=== PATIENT | male | born 1965 | race African-American/Black ===

== ENCOUNTER → 2016-08-16 | Outpatient (CLI) | payer BC ==
[2014-04-29 10:17] VITALS: BP 174/96
[~2016-08-16] MED LIST: GABA-586 PO; GEMF600T3 PO; GLIP10TA13 PO; GLIP5TAB10 PO; HYDR-2679 PO; INSU100I13 SQ; INSU100V5 IJ; LIPA1CAP13 PO; LOSA25TA4 PO; METF10002 PO; METH-38 PO; OMEP40CA2 PO; TAMS0.4C97 PO
== END | disposition home or self-care (01) ==
LOC: LAB 09:44
PROVIDERS: ATTEND Radiology Radiation Oncology
DX: C61 Malignant neoplasm of prostate (principal)
CPT/HCPCS: 36415; G0103

== ENCOUNTER → 2016-11-21 | Outpatient (CLI) | payer BC ==
[2014-04-29 10:17] VITALS: BP 174/96
[~2016-11-21] MED LIST changes: +METF-620 PO; -METF10002 PO
== END | disposition home or self-care (01) ==
LOC: LAB 08:29
PROVIDERS: ATTEND Radiology Radiation Oncology
DX: Z12.5 Encounter for screening for malignant neoplasm of prostate (principal); C61 Malignant neoplasm of prostate
CPT/HCPCS: 36415; G0103

== ENCOUNTER → 2017-08-26 | Outpatient (CLI) | payer BC ==
[2017-08-26 13:19] LABS: ADD MAN DIFF? NO
[2017-08-26 13:22] LABS: BASO # 0.2 x10^3/uL (0.0-0.2); BASO % 2 % (0-3); EOS # 0.2 x10^3/uL (0.0-0.7); EOS % 1 % (0-3); HEMATOCRIT 32.2 % (39.0-53.0); HEMOGLOBIN 10.5 g/dL (13.0-17.5); LYMPH % 42 % (24-48); MEAN CORPUSCULAR HEMOGLOBIN 26 pg (25-35); MEAN CORPUSCULAR HGB CONC 33 g/dL (31-37); MEAN CORPUSCULAR VOLUME 80 fL (79-100); MONO # 0.8 x10^3/uL (0.0-1.1); MONO % 6 % (0-9); NEUT % 49 % (31-73); PLATELET COUNT 420 x10^3/uL (140-400); RED CELL DISTRIBUTION WIDTH 17.6 % (11.5-14.5); WHITE BLOOD COUNT 14.3 x10^3/uL (4.0-11.0)
[2017-08-26 13:57] LABS: POC GLUCOSE 89 mg/dL (70-99)
[2017-08-26 14:07] LABS: ALBUMIN 3.1 g/dL (3.4-5.0); ALBUMIN/GLOBULIN RATIO 0.8 (1.0-1.7); ALK PHOS 122 U/L (46-116); ALT (SGPT) 20 U/L (16-63); ANION GAP 14 (6-14); AST (SGOT) 18 U/L (15-37); BLOOD UREA NITROGEN 13 mg/dL (8-26); BUN/CREATININE RATIO 9 (6-20); CALCIUM 8.8 mg/dL (8.5-10.1); CARBON DIOXIDE 19 mmol/L (21-32); CHLORIDE 101 mmol/L (98-107); CREATININE 1.5 mg/dL (0.7-1.3); GFR 59.7; GLUCOSE 89 mg/dL (70-99); POTASSIUM 4.1 mmol/L (3.5-5.1); SODIUM 134 mmol/L (136-145); TOTAL BILIRUBIN 0.2 mg/dL (0.2-1.0); TOTAL PROTEIN 6.8 g/dL (6.4-8.2)
[2017-08-26 20:10] LABS: HEMOGLOBIN A1C 6.9 % (4.8-5.6)
[2017-08-26 22:13] LABS: MRSA BY PCR Negative (Negative)
== END | disposition home or self-care (01) ==
LOC: SURGPAT 12:36
DX: Z01.818 Encounter for other preprocedural examination (principal); M51.16 Intervertebral disc disorders with radiculopathy, lumbar region; R94.31 Abnormal electrocardiogram [ECG] [EKG]
CPT/HCPCS: 36415; 80053; 82962; 83036; 85025; 87641; 93005

== ENCOUNTER 2017-08-30 06:48 | Day surgery (SDC) | payer BC ==
[~2017-08-30 06:48] MED LIST changes: -GABA-586 PO; -GEMF600T3 PO; -GLIP10TA13 PO; -GLIP5TAB10 PO; -HYDR-2679 PO; -INSU100I13 SQ; -INSU100V5 IJ; +LIDOCAINE 2% PF Vial for OR 5 ML VIAL.; -LIPA1CAP13 PO; -LOSA25TA4 PO; -METF-620 PO; -METH-38 PO; -OMEP40CA2 PO; +PROPOFOL 20 ML IV; +ROCURONIUM 50 MG/5 ML VIAL.; -TAMS0.4C97 PO
[2017-08-30] MEDS ORDERED: ONDANSETRON PF 4 MG/2 ML VIAL. IV ×2 (07:00)
[2017-08-30] MEDS ORDERED: PROCHLORPERAZINE 10 MG/2 ML VIAL. IV ×2 (07:00)
[2017-08-30] MEDS ORDERED: fentaNYL PF VIAL 100 MCG/2 ML VIAL IV ×2 (07:00)
[2017-08-30] MEDS ORDERED: LIDOCAINE 1% PF 2 ML VIAL. ID ×2 (07:00)
[2017-08-30] MEDS ORDERED: HYDROmorphone 2 MG/ML VIAL IV ×2 (07:00)
[2017-08-30] MEDS ORDERED: ceFAZolin 2GM PREMIX 2 GM/50 ML BAG IV ×2 (07:00)
[2017-08-30] MEDS: IV RINGERS,LACTATED 1000ML 1,000 ML IV ×2 (07:29)
[2017-08-30 07:32] LABS: POC GLUCOSE 79 mg/dL (70-99)
[2017-08-30] MEDS ORDERED: ePHEDrine PF IN SALINE 50 MG/5 ML DISP.SYRIN IV (08:15)
[2017-08-30] MEDS ORDERED: fentaNYL PF VIAL 100 MCG/2 ML VIAL ×2 (08:16)
[2017-08-30] MEDS ORDERED: MIDAZOLAM HCL/PF 2 MG/2 ML VIAL. ×2 (08:17)
[2017-08-30] MEDS ORDERED: PROPOFOL 50 ML IV ×4 (08:18→10:33)
[2017-08-30] MEDS ORDERED: REMIFENTANIL 2 MG VIAL. IV ×2 (08:18)
[2017-08-30] MEDS ORDERED: NEOSTIGMINE METHYLSULFATE 5 MG/5 ML SYRINGE. ×2 (09:03)
[2017-08-30] MEDS ORDERED: GLYCOPYRROLATE 1 MG/5 ML VIAL. ×2 (09:03)
[2017-08-30] MEDS: BACITRACIN 50,000 UNIT in IV NORMAL SALINE 1000ML BAG 1,000 ML IRR (09:33)
[2017-08-30] MEDS: GELATIN SPONGE SIZE 100. ×2 (09:33)
[2017-08-30] MEDS: THROMBIN TOPICAL 20,000 UNIT SPRAY.SYRN KIT TP ×2 (09:33)
[2017-08-30] MEDS: KETOROLAC 60 MG/2 ML INJ FOR OR. ×2 (09:33)
[2017-08-30] MEDS: BUPIVAC MPF-EPI 0.5%-1:200000 30 ML VIAL. INJ ×2 (09:33)
[2017-08-30] MEDS: fentaNYL PF VIAL 100 MCG/2 ML VIAL IV ×4 (11:30→11:53)
[2017-08-30] MEDS: MORPHINE SULFATE 2 MG/ML DISP.SYRIN. IV ×4 (11:30→11:53)
[2017-08-30 11:38] LABS: POC GLUCOSE 54 mg/dL (70-99)
[2017-08-30] MEDS: HYDROcodone/APAP 7.5/325MG 1 TAB TABLET PO ×2 (12:17)
[2017-08-30] MEDS: hydrALAZINE 20 MG/ML VIAL. IVP ×4 (12:28→13:16)
[2017-08-30 13:05] LABS: POC GLUCOSE 96 mg/dL (70-99)
== END 2017-08-30 13:41 | disposition home or self-care (01) ==
LOC: SURG 06:48
DX: M51.16 Intervertebral disc disorders with radiculopathy, lumbar region (principal); I25.10 Atherosclerotic heart disease of native coronary artery without angina pectoris; E78.00 Pure hypercholesterolemia, unspecified; I10 Essential (primary) hypertension; K21.9 Gastro-esophageal reflux disease without esophagitis; F17.200 Nicotine dependence, unspecified, uncomplicated; E11.9 Type 2 diabetes mellitus without complications; Z72.0 Tobacco use; Z79.899 Other long term (current) drug therapy; Z86.69 Personal history of other diseases of the nervous system and sense organs; Z90.49 Acquired absence of other specified parts of digestive tract; Z87.39 Personal history of other diseases of the musculoskeletal system and connective tissue
CPT/HCPCS: 63030; 76000; 82962; 88304; 88311; 97162-GP; 97530-GP; G8978-CJ-GP; G8979-CJ-GP; G8980-CJ-GP; J0360; J0690; J1885; J2250; J2270; J2704; J2710; J3010; J3490; J7030; J7120

== ENCOUNTER → 2017-10-11 | Outpatient (CLI) | payer BC | END | disposition home or self-care (01) | LOC: CT 10:07 | DX: R91.1 Solitary pulmonary nodule (principal); I25.10 Atherosclerotic heart disease of native coronary artery without angina pectoris; K86.1 Other chronic pancreatitis; Z98.890 Other specified postprocedural states | CPT/HCPCS: 71250 ==

== ENCOUNTER → 2018-03-13 | Outpatient (CLI) | payer BC ==
[2017-08-30 13:35] VITALS: BP 213/98
[~2018-03-13] MED LIST changes: +ASPI-482 PO; +ATORVASTATIN CA80 MG PO; +CYAN10005 PO; +DOCU-109 PO; +GABA-586 PO; +GEMF600T3 PO; +GLIP10TA13 PO; +GLIP5TAB10 PO; +HYDR-2679 PO; +HYDR-2762 PO; +INSU100I13 SQ; +INSU100V5 IJ; -LIDOCAINE 2% PF Vial for OR 5 ML VIAL.; +LIPA1CAP13 PO; +LOSA25TA4 PO; +METF10003 PO; +METH-38 PO; +METO-239 PO; +MONT10TA9 PO; +OMEP40CA2 PO; -PROPOFOL 20 ML IV; -ROCURONIUM 50 MG/5 ML VIAL.; +TAMS0.4C97 PO; +TRAZ-86 PO
--- NOTE | 2018-03-13 16:14 | KCIC ---
EXAM: Cervical spine, 3 views. HISTORY: Radiculopathy. COMPARISON: None. FINDINGS: 3 views of cervical spine are obtained. There is slight reversal of cervical lordosis. There is degenerative endplate remodeling primarily at C3-C4 and C4-C5. There is no listhesis. There is no fracture. There is calcified atherosclerotic plaque within the carotid bifurcations. IMPRESSION: Mild degenerative change of the proximal and mid cervical levels. No acute osseous finding. Electronically signed by: Kala Sheriff MD (03/13/2018 4:10 PM) [place] [id number]
== END | disposition home or self-care (01) ==
LOC: KCIC 15:25
PROVIDERS: ATTEND Internal Medicine
DX: M47.892 Other spondylosis, cervical region (principal); I70.0 Atherosclerosis of aorta; I10 Essential (primary) hypertension; E11.9 Type 2 diabetes mellitus without complications; E78.00 Pure hypercholesterolemia, unspecified; I25.10 Atherosclerotic heart disease of native coronary artery without angina pectoris; K21.9 Gastro-esophageal reflux disease without esophagitis; Z96.652 Presence of left artificial knee joint; Z87.39 Personal history of other diseases of the musculoskeletal system and connective tissue; Z86.69 Personal history of other diseases of the nervous system and sense organs; Z90.49 Acquired absence of other specified parts of digestive tract
CPT/HCPCS: 72040

== ENCOUNTER → 2018-05-24 | Outpatient (CLI) | payer BC ==
[2017-08-30 13:35] VITALS: BP 213/98
[~2018-05-24] MED LIST changes: -GEMF600T3 PO; +GEMF600T4 PO; -LOSA25TA4 PO; +LOSA25TA5 PO; -METF10003 PO; +METF10007 PO
[2018-05-24 14:49] LABS: CALCIUM 8.1 mg/dL (8.5-10.1); CREATININE 1.7 mg/dL (0.7-1.3); GFR 51.7; POTASSIUM 4.9 mmol/L (3.5-5.1)
== END | disposition home or self-care (01) ==
LOC: LAB 14:04
PROVIDERS: ATTEND Internal Medicine
DX: E87.5 Hyperkalemia (principal)
CPT/HCPCS: 36415; 80048

== ENCOUNTER → 2018-09-02 | Day surgery (SDC) | payer BC ==
[~2018-09-02] MED LIST changes: -GABA-586 PO; +GABA300C18 PO; -GEMF600T4 PO; +GEMF600T8 PO; -HYDR-2762 PO; +HYDR-2765 PO; +IV RINGERS,LACTATED 1000ML 1,000 ML IV SCH; +LIDOCAINE 1% PF 2 ML VIAL. ID PRN; -LOSA25TA5 PO; +LOSA25TA54 PO; +ONDANSETRON PF 4 MG/2 ML VIAL. IV PRN; +PHENYLEPHRINE 10 MG/ML VIAL. ONE; +PROCHLORPERAZINE 10 MG/2 ML VIAL. IV PRN; +PROPOFOL 20 ML IV ONE; +PROPOFOL 80 ML IV ONE; +fentaNYL PF VIAL 100 MCG/2 ML VIAL IV PRN
[2018-09-02 09:59] VITALS: BP 179/90
--- NOTE | 2018-09-03 15:07 | PATHOLOGY ---
[facility] Accession Number: [id number] . 01 Material submitted: . PART A: SMALL BOWEL BIOPSY PART B: RANDOM BIOPSY FOR H. PYLORI PART C: CARDIA BIOPSY PART D: ASCENDING COLON POLYP PART E: HEPATIC FLEXURE POLYP PART F: TRANSVERSE POLYP PART G: SIGMOID POLYP PART H: DISTAL SIGMOID POLYP PART I: RECTAL NODULAR BIOPSY . 01 Clinical history: . Anemia . 02 Diagnosis: A. Small bowel biopsy: - No significant pathologic abnormalities. . B. Random gastric biopsy: - Chronic gastritis, mild. . C. Gastric cardia biopsy: - Congestion and slight chronic inflammation. . D. Colon biopsy, ascending colon polyp: - Tubular adenoma. . E. Colon biopsy, hepatic flexure polyp: - Tubular adenoma. . F. Colon biopsies, transverse colon polyp: - Tubular adenomas. . G. Colon biopsy, sigmoid colon polyp: - Diminutive tubular adenoma. . H. Colon biopsy, distal sigmoid polyp: - Tubular adenoma. . I. Colorectal biopsies, rectum: - Mild chronic proctitis with focal superficial epithelial hyperplastic changes. (JPM:bryn; 09/03/2018) QMS/09/03/2018 . 02 Comment: Sections of the small bowel biopsy reveal segments of duodenal and small intestine mucosa. Where best oriented, the mucosal villi show no sprue-like changes or significant inflammatory changes. . Sections of the random gastric biopsy reveal segments of gastric body and antral mucosa showing mild chronic inflammation. A properly controlled immunoperoxidase stain for Helicobacter is negative for Helicobacter organisms. . Sections of the gastric cardia biopsy show congestion and slight chronic inflammation. A properly controlled immunoperoxidase stain for Helicobacter is negative for Helicobacter organisms. . Sections of the ascending colon, hepatic flexure, transverse colon, sigmoid colon, and distal sigmoid colon bipsies appear similar and reveal tubular adenomas showing no high-grade dysplasia or evidence of malignancy. . Sections of the rectal biopsy reveal segments of rectal mucosa showing mild chronic inflammation with focal architectural distortion of rectal glands and with focal superficial epithelial hyperplastic changes. There are no adenomatous changes or evidence of malignancy. (JPM:bryn; 09/03/2018) . Special stains performed: Immunoperoxidase stains for Helicobacter on B1 and C1. . 02 Electronically signed: . Aguilar Lo MD, Pathologist NPI- [id number] . 01 Gross description: . A. Received in formalin labeled "Magadleno Murillo, small bowel BX," are 4 segments of collazo soft tissue measuring 1.2 x 0.9 x 0.2 cm in aggregate dimensions and ranging from 0.3 to 0.6 cm in maximum dimension. The specimen is submitted entirely in cassette A1. . B. Received in formalin labeled "Magdaleno Murillo, random BX for H. pylori," and additionally verified as "gastric," are 4 segments of collazo soft tissue measuring 1.3 x 0.9 x 0.2 cm in aggregate dimensions and ranging from 0.3 to 0.7 cm in maximum dimension. The specimen is submitted entirely in B1. . C. Received in formalin labeled "Magdaleno Murillo, cardia BX," is a single segment of collazo soft tissue measuring 0.4 cm in maximum dimension. The specimen is entirely submitted in cassette C1. . D. Received in formalin labeled "Magdaleno Murillo, ascending colon polyp," is a single segment of collazo soft tissue measuring 0.5 cm in maximum dimension. The specimen is entirely submitted in cassette D1. . E. Received in formalin labeled "Magdaleno Murillo, hepatic flexure polyp," is a single segment of collazo soft tissue measuring 0.5 cm in maximum dimension. The specimen is entirely submitted in cassette E1. . F. Received in formalin labeled "Murillo, Magdaleno, transverse polyp," are 5 segments of collazo soft tissue measuring 1.5 x 0.9 x 0.3 cm in aggregate dimensions and ranging from 0.3 to 0.5 cm in maximum dimension. The specimen is submitted entirely in F1. . G. Received in formalin labeled "Murillo, Magdaleno, sigmoid polyp," are 3 segments of collazo soft tissue measuring 0.9 x 0.6 x 0.3 cm in aggregate dimensions and ranging from 0.3 to 0.5 cm in maximum dimension. The specimen is submitted entirely in G1. . H. Received in formalin labeled "Magdaleno Murillo, distal sigmoid polyp," are 2 segments of collazo soft tissue measuring 0.9 x 0.2 x 0.2 cm in aggregate dimensions and ranging from 0.4 to 0.5 cm in maximum dimension. The specimen is submitted entirely in H1. . I. Received in formalin labeled "Magdaleno Murillo, rectum nodular BX," are 4 segments of collazo soft tissue measuring 1.2 x 0.6 x 0.2 cm in aggregate dimensions and ranging from 0.3 to 0.4 cm in maximum dimension. The specimen is submitted entirely in I1. (TSD; 09/02/2018) TOB/TOB . 02 Pathologist provided ICD-10: K29.50, K31.89, D12.2, D12.3, D12.5, K62.89 . 02 CPT . 520884, 471336, 459163, 598999, 662375, 449081, 923962, 166131, 507555, [id number] Specimen Comment: A courtesy copy of this report has been sent to Specimen Comment: [phone], . Specimen Comment: Report sent to / DR ALDANA Specimen Comment: A duplicate report has been generated due to demographic updates. Performed at: 01 [facility] [address], [place] [id number] MD Tray Millan MD Phone: [phone] Performed at: 02 [facility] [address] [place], [place] [id number] MD Aguilar Lo MD Phone: [phone]
== END | disposition home or self-care (01) ==
LOC: ENDOS 06:54
PROVIDERS: ATTEND Internal Medicine
DX: D12.2 Benign neoplasm of ascending colon (principal); D12.3 Benign neoplasm of transverse colon; D12.5 Benign neoplasm of sigmoid colon; K57.30 Diverticulosis of large intestine without perforation or abscess without bleeding; K62.89 Other specified diseases of anus and rectum; K29.50 Unspecified chronic gastritis without bleeding; K44.9 Diaphragmatic hernia without obstruction or gangrene; K31.89 Other diseases of stomach and duodenum; D50.9 Iron deficiency anemia, unspecified; E11.9 Type 2 diabetes mellitus without complications; I25.10 Atherosclerotic heart disease of native coronary artery without angina pectoris; Z95.5 Presence of coronary angioplasty implant and graft; K21.9 Gastro-esophageal reflux disease without esophagitis; Z88.5 Allergy status to narcotic agent; I11.9 Hypertensive heart disease without heart failure; E78.00 Pure hypercholesterolemia, unspecified; I25.2 Old myocardial infarction; G47.30 Sleep apnea, unspecified; Z83.3 Family history of diabetes mellitus; Z82.49 Family history of ischemic heart disease and other diseases of the circulatory system; Z79.82 Long term (current) use of aspirin; Z79.899 Other long term (current) drug therapy; Z90.49 Acquired absence of other specified parts of digestive tract; Z98.890 Other specified postprocedural states; E66.9 Obesity, unspecified; Z85.46 Personal history of malignant neoplasm of prostate; Z79.84 Long term (current) use of oral hypoglycemic drugs; Z68.25 Body mass index [BMI] 25.0-25.9, adult
CPT/HCPCS: 43239; 45380; 45385; 82962; J2704; 45382

== ENCOUNTER 2018-11-11 15:49 | Emergency (ER) | payer BC ==
[~2018-11-11] VITALS: Ht 167.6 cm; Wt 66.2 kg
[~2018-11-11 15:49] MED LIST changes: -IV RINGERS,LACTATED 1000ML 1,000 ML IV SCH; -LIDOCAINE 1% PF 2 ML VIAL. ID PRN; -ONDANSETRON PF 4 MG/2 ML VIAL. IV PRN; -PHENYLEPHRINE 10 MG/ML VIAL. ONE; -PROCHLORPERAZINE 10 MG/2 ML VIAL. IV PRN; -PROPOFOL 20 ML IV ONE; -PROPOFOL 80 ML IV ONE; -fentaNYL PF VIAL 100 MCG/2 ML VIAL IV PRN
[2018-11-11] MEDS ORDERED: IV NORMAL SALINE 1000ML BAG 1,000 ML IV ONE (16:45)
[2018-11-11] MEDS ORDERED: fentaNYL PF VIAL 100 MCG/2 ML VIAL IV ONE (16:45)
[2018-11-11] MEDS ORDERED: FAMOTIDINE 20 MG/2 ML VIAL IVP ONE (16:45)
[2018-11-11] MEDS ORDERED: ONDANSETRON PF 4 MG/2 ML VIAL. IV ONE (16:45)
[2018-11-11] MEDS ORDERED: LABETALOL 20 MG/4 ML DISP.SYRIN. IVP ONE (17:00)
[2018-11-11] MEDS ORDERED: cloNIDine HCL 0.1 MG TABLET PO ONE (17:00)
[2018-11-11 17:25] LABS: BASO # 0.2 x10^3/uL (0.0-0.2); BASO % 2 % (0-3); EOS # 0.1 x10^3/uL (0.0-0.7); EOS % 1 % (0-3); HEMATOCRIT 30.7 % (39.0-53.0); HEMOGLOBIN 10.1 g/dL (13.0-17.5); LYMPH # 2.5 x10^3/uL (1.0-4.8); LYMPH % 24 % (24-48); MEAN CORPUSCULAR HEMOGLOBIN 25 pg (25-35); MEAN CORPUSCULAR HGB CONC 33 g/dL (31-37); MEAN CORPUSCULAR VOLUME 76 fL (79-100); MONO # 0.5 x10^3/uL (0.0-1.1); MONO % 5 % (0-9); NEUT # 7.5 x10^3uL (1.8-7.7); NEUT % 69 % (31-73); PLATELET COUNT 530 x10^3/uL (140-400); RED BLOOD COUNT 4.05 x10^6/uL (4.30-5.70); RED CELL DISTRIBUTION WIDTH 19.3 % (11.5-14.5); WHITE BLOOD COUNT 10.8 x10^3/uL (4.0-11.0)
[2018-11-11 17:35] LABS: CALCIUM 8.8 mg/dL (8.5-10.1); CREATININE 2.5 mg/dL (0.7-1.3); POTASSIUM 3.7 mmol/L (3.5-5.1)
[2018-11-11 17:41] LABS: ALBUMIN 2.9 g/dL (3.4-5.0); ALBUMIN/GLOBULIN RATIO 0.7 (1.0-1.7); TOTAL BILIRUBIN 0.2 mg/dL (0.2-1.0); TOTAL PROTEIN 7.2 g/dL (6.4-8.2)
--- NOTE | 2018-11-11 18:22 | RAD ---
CT Abdomen and Pelvis without contrast History: Abdominal pain since Saturday, vomiting, history of chronic pancreatitis Technique: Noncontrast CT imaging was performed of the abdomen and pelvis. Multiplanar images are reviewed. Exposure: One or more of the following individualized dose reduction techniques were utilized for this examination: 1. Automated exposure control 2. Adjustment of the mA and/or kV according to patient size 3. Use of iterative reconstruction technique. Comparison: October 14, 2014 Findings: There is no pleural fluid of the visualized lung bases. There is emphysema. There again innumerable pancreatic calcifications. No obvious focal inflammatory change or fluid collection is identified of the pancreas or peripancreatic region. There is no hydronephrosis or renal calculus. Evaluation of abdominal visceral organs is limited without intravenous contrast, no osseous areas focal abnormality liver or spleen. There again has been cholecystectomy. Bowel is not significantly dilated. There is no free air or significant free fluid. Normal appendix is visualized. Urinary bladder is somewhat distended. There are again prostate radiation seeds. There is some atherosclerotic calcification of the abdominal aorta. There is more advanced degenerative disc disease L5-S1, mild spondylosis. There is moderate narrowing of the right L5-S1 neural foramen. Impression: 1. There are again innumerable pancreatic calcifications, evidence of sequela of chronic pancreatitis. No significant focal fluid collection or inflammatory-type change is associated with the pancreas although imaging findings of pancreatitis can be delayed relative to laboratory changes. There is no CT evidence of acute appendicitis. 2. Urinary bladder is somewhat distended. Electronically signed by: Nathaniel Everett MD (11/11/2018 6:18 PM) [facility]
[2018-11-11 19:30] VITALS: BP 207/92
[2018-11-11 19:33] LABS: BILIRUBIN,URINE NEGATIVE (NEG); CLARITY,URINE CLEAR; COLOR,URINE YELLOW; NITRITE,URINE NEGATIVE (NEG); PH,URINE 5.5; PROTEIN,URINE >=300 mg/dL (NEG-TRACE); UROBILINOGEN,URINE 0.2 mg/dL (0.2 mg/dL)
[2018-11-11] MEDS ORDERED: HYDR-3164 PO (19:38)
[2018-11-11] MEDS ORDERED: ONDA4TAB12 PO (19:38)
--- NOTE | 2018-11-11 19:39 | PHYS DOC ---
Past Medical History Past Medical History: Cancer, Diabetes-Type II, High Cholesterol, Hypertension, SD, Pancreatitis Additional Past Medical Histor: pancreatitis (LAKEISHA TIM APRN) Past Surgical History: Cholecystectomy Additional Past Surgical Histo: back sx, pseudocyst (LAKEISHA TIM APRN) Alcohol Use: None Drug Use: None (LAKEISHA TIM APRN) Adult General Chief Complaint Chief Complaint: ABDOMINAL PAIN HPI HPI Patient is a 53 year old male with history of chronic pancreatitis since he was a young boy, hypertension, high cholesterol, diabetes type 2, prostate cancer but treated, renal disease, who presents to the ED today complaining of 7 out of 10 left-sided abdominal pain with nausea vomiting that began on Saturday after having Leonor hargrove with family and friends. Patient states he thought he had food poisoning. He states he went to see the PCP today and they sent him to the ED to be worked up for pancreatitis flare up. Patient denies any history of drinking. Denies any fever. Patient states all day today he has not had any vomiting or nausea. He has been able to tolerate some meals today. (LAKEISHA TIM APRN) Review of Systems Review of Systems Constitutional: Denies fever or chills [] Eyes: Denies change in visual acuity, redness, or eye pain [] HENT: Denies nasal congestion or sore throat [] Respiratory: Denies cough or shortness of breath [] Cardiovascular: No additional information not addressed in HPI [] GI: Reports left upper quadrant abdominal pain nausea, vomiting, denies bloody stools or diarrhea [] : Denies dysuria or hematuria [] Musculoskeletal: Denies back pain or joint pain [] Integument: Denies rash or skin lesions [] Neurologic: Denies headache, focal weakness or sensory changes [] All other systems were reviewed and found to be within normal limits, except as documented in this note. (LAKEISHA TIM APRN) Current Medications Current Medications Current Medications Medications (Trade) Dose Ordered Sig/Ravinder Start Time Stop Time Status Last Admin Dose Admin Clonidine HCl (Catapres) 0.1 mg 1X ONCE 11/11/18 17:00 11/11/18 17:01 DC 11/11/18 18:24 0.1 MG Famotidine (Pepcid Vial) 20 mg 1X ONCE 11/11/18 16:45 11/11/18 16:46 DC 11/11/18 18:24 20 MG Fentanyl Citrate (Fentanyl 2ml Vial) 50 mcg 1X ONCE 11/11/18 16:45 11/11/18 16:46 DC 11/11/18 18:25 50 MCG Labetalol HCl (Normodyne Iv Push) 10 mg 1X ONCE 11/11/18 17:00 11/11/18 17:01 DC 11/11/18 18:23 10 MG Ondansetron HCl (Zofran) 4 mg 1X ONCE 11/11/18 16:45 11/11/18 16:46 DC 11/11/18 18:24 4 MG Sodium Chloride 1,000 ml @ 1,000 mls/hr 1X ONCE 11/11/18 16:45 11/11/18 17:44 DC 11/11/18 18:25 1,000 MLS/HR (NELI VIDES MD) Allergies Allergies Allergies Coded Allergies Type Severity Reaction Last Updated Verified morphine Allergy Intermediate Itching 09/02/18 Yes (NELI VIDES MD) Physical Exam Physical Exam Constitutional: Well developed, well nourished, no acute distress, non-toxic appearance. [] HENT: Normocephalic, atraumatic, bilateral external ears normal, oropharynx moist, no oral exudates, nose normal. [] Eyes: PERRLA, EOMI, conjunctiva normal, no discharge. [] Neck: Normal range of motion, no tenderness, supple, no stridor. [] Cardiovascular:Heart rate regular rhythm, no murmur [] Lungs & Thorax: Bilateral breath sounds clear to auscultation [] Abdomen: Bowel sounds normal, soft, slight tenderness on palpation of the left upper quadrant as well as epigastric tenderness, no masses, no pulsatile masses. [] Skin: Warm, dry, no erythema, no rash. [] Back: No tenderness, no CVA tenderness. [] Extremities: No tenderness, no cyanosis, no clubbing, ROM intact, no edema. [] Neurologic: Alert and oriented X 3, normal motor function, normal sensory function, no focal deficits noted. [] Psychologic: Affect normal, judgement normal, mood normal. [] (LAKEISHA TIM APRN) Current Patient Data Vital Signs Vital Signs Date Time Temp Pulse Resp B/P (MAP) Pulse Ox O2 Delivery O2 Flow Rate FiO2 11/11/18 19:30 80 16 207/92 (130) 99 Room Air 11/11/18 16:35 98.5 98.5 (NELI VIDES MD) Lab Values Laboratory Tests Test 11/11/18 17:15 11/11/18 19:20 White Blood Count 10.8 x10^3/uL (4.0-11.0) Red Blood Count 4.05 x10^6/uL (4.30-5.70) L Hemoglobin 10.1 g/dL (13.0-17.5) L Hematocrit 30.7 % (39.0-53.0) L Mean Corpuscular Volume 76 fL (79-100) L Mean Corpuscular Hemoglobin 25 pg (25-35) Mean Corpuscular Hemoglobin Concent 33 g/dL (31-37) Red Cell Distribution Width 19.3 % (11.5-14.5) H Platelet Count 530 x10^3/uL (140-400) H Neutrophils (%) (Auto) 69 % (31-73) Lymphocytes (%) (Auto) 24 % (24-48) Monocytes (%) (Auto) 5 % (0-9) Eosinophils (%) (Auto) 1 % (0-3) Basophils (%) (Auto) 2 % (0-3) Neutrophils # (Auto) 7.5 x10^3uL (1.8-7.7) Lymphocytes # (Auto) 2.5 x10^3/uL (1.0-4.8) Monocytes # (Auto) 0.5 x10^3/uL (0.0-1.1) Eosinophils # (Auto) 0.1 x10^3/uL (0.0-0.7) Basophils # (Auto) 0.2 x10^3/uL (0.0-0.2) Sodium Level 135 mmol/L (136-145) L Potassium Level 3.7 mmol/L (3.5-5.1) Chloride Level 102 mmol/L (98-107) Carbon Dioxide Level 19 mmol/L (21-32) L Anion Gap 14 (6-14) Blood Urea Nitrogen 18 mg/dL (8-26) Creatinine 2.5 mg/dL (0.7-1.3) H Estimated GFR (Cockcroft-Gault) 33.0 BUN/Creatinine Ratio 7 (6-20) Glucose Level 125 mg/dL (70-99) H Calcium Level 8.8 mg/dL (8.5-10.1) Total Bilirubin 0.2 mg/dL (0.2-1.0) Aspartate Amino Transferase (AST) 35 U/L (15-37) Alanine Aminotransferase (ALT) 45 U/L (16-63) Alkaline Phosphatase 364 U/L (46-116) H Total Protein 7.2 g/dL (6.4-8.2) Albumin 2.9 g/dL (3.4-5.0) L Albumin/Globulin Ratio 0.7 (1.0-1.7) L Lipase 60 U/L (73-393) L Ethyl Alcohol Level < 10 mg/dL (0-10) Urine Collection Type Unknown Urine Color Yellow Urine Clarity Clear Urine pH 5.5 Urine Specific [place] 1.015 Urine Protein >=300 mg/dL (NEG-TRACE) Urine Glucose (UA) Negative mg/dL (NEG) Urine Ketones (Stick) Negative mg/dL (NEG) Urine Blood Negative (NEG) Urine Nitrite Negative (NEG) Urine Bilirubin Negative (NEG) Urine Urobilinogen Dipstick 0.2 mg/dL (0.2 mg/dL) Urine Leukocyte Esterase Negative (NEG) Urine RBC 0 /HPF (0-2) Urine WBC 1-4 /HPF (0-4) Urine Squamous Epithelial Cells Few /LPF Urine Transitional Epithelial Cells Few /LPF Urine Bacteria 0 /HPF (0-FEW) Urine Hyaline Casts Moderate /HPF Urine Mucus Slight /LPF Urine Opiates Screen Pos (NEG) Urine Methadone Screen Neg (NEG) Urine Barbiturates Neg (NEG) Urine Phencyclidine Screen Neg (NEG) Urine Amphetamine/Methamphetamine Neg (NEG) Urine Benzodiazepines Screen Neg (NEG) Urine Cocaine Screen Neg (NEG) Urine Cannabinoids Screen Neg (NEG) Urine Ethyl Alcohol Neg (NEG) Laboratory Tests 11/11/18 17:15 Laboratory Tests 11/11/18 17:15 (NELI VIDES MD) EKG EKG [] (LAKEISHA TIM APRN) Radiology/Procedures Radiology/Procedures []PROCEDURE: CT ABDOMEN PELVIS WO CONTRAST CT Abdomen and Pelvis without contrast History: Abdominal pain since Saturday, vomiting, history of chronic pancreatitis Technique: Noncontrast CT imaging was performed of the abdomen and pelvis. Multiplanar images are reviewed. Exposure: One or more of the following individualized dose reduction techniques were utilized for this examination: 1. Automated exposure control 2. Adjustment of the mA and/or kV according to patient size 3. Use of iterative reconstruction technique. Comparison: October 14, 2014 Findings: There is no pleural fluid of the visualized lung bases. There is emphysema. There again innumerable pancreatic calcifications. No obvious focal inflammatory change or fluid collection is identified of the pancreas or peripancreatic region. There is no hydronephrosis or renal calculus. Evaluation of abdominal visceral organs is limited without intravenous contrast, no osseous areas focal abnormality liver or spleen. There again has been cholecystectomy. Bowel is not significantly dilated. There is no free air or significant free fluid. Normal appendix is visualized. Urinary bladder is somewhat distended. There are again prostate radiation seeds. There is some atherosclerotic calcification of the abdominal aorta. There is more advanced degenerative disc disease L5-S1, mild spondylosis. There is moderate narrowing of the right L5-S1 neural foramen. Impression: 1. There are again innumerable pancreatic calcifications, evidence of sequela of chronic pancreatitis. No significant focal fluid collection or inflammatory-type change is associated with the pancreas although imaging findings of pancreatitis can be delayed relative to laboratory changes. There is no CT evidence of acute appendicitis. 2. Urinary bladder is somewhat distended. Electronically signed by: Evelyne Jean Baptiste MD (11/11/2018 6:18 PM) [facility] DICTATED and SIGNED BY: EVELYNE JEAN BAPTISTE MD DATE: 11/11/181817 (LAKEISHA TIM APRN) Course & Med Decision Making Course & Med Decision Making Pertinent Labs and Imaging studies reviewed. (See chart for details) This is a 53-year-old male patient presenting to the ED today to be worked up for chronic pancreatitis. See history of present illness. Patient had a stab male on Saturday and developed nausea vomiting since then. PCP was concerned he could have pancreatitis. Patient's lipase is 60, CBC with normal WBC. Creatinine 2.5 BUN is normal, patient states he has bad kidneys and states the creatinine could be at his baseline. He states he will f/u with Dr. Valadez for this as usual. AST and ALT are normal. ALK- 364 patient has known history of elevated ALK from previous labs done at [facility]. CT of the abdomen and pelvic was noted for chronic pancreatitis. Blood pressure on arrival was 214/102, with heart rate in the 70s, patient states he has history of chronic hypertension, he states is on several medications and cannot remember any of them. He was given labetalol and cloni dine. That pressure 185/91. He was offered admission he states he would rather follow up in the clinic than being admitted. Patient was discharged to home. Follow-up with Dr. Valadez in the course of this week. (LAKEISHA TIM APRN) Course & Med Decision Making Staff Physician Addendum: I was working in the ER during the course of this patient's visit. I was available for consultation as needed, but I was not directly involved in the care of this patient. (NELI VIDES MD) Dragon Disclaimer Dragon Disclaimer This electronic medical record was generated, in whole or in part, using a voice recognition dictation system. (LAKEISHA TIM APRN) Departure Departure Impression: Primary Impression: Chronic pancreatitis Additional Impressions: Chronic renal failure HTN (hypertension) Abdominal pain Disposition: 01 HOME, SELF-CARE Condition: STABLE Referrals: TRINA VALADEZ MD (PCP) follow up in the course of this week Patient Instructions: Abdominal Pain, Acute Pancreatitis, [id number] Additional Instructions: You were evaluated in the emergency room for abdominal pain, we could not find any acute cause for your symptoms. We recommend you continue following up with Dr. Valadez. Ensure you take your blood pressure medications. Come back to the ED at any point symptoms worsen. Scripts Hydrocodone/Apap 5-325 (NORCO 5-325 TABLET) 1 Each Tablet 1 TAB PO Q6HRS, #10 TAB Prov: LAKEISHA TIM APRN 11/11/18 Ondansetron (ONDANSETRON ODT) 4 Mg Tab.rapdis 1 TAB PO PRN Q6-8HRS, #16 TAB Prov: LAKEISHA TIM APRN 11/11/18 Problem Qualifiers Primary Impression: Chronic pancreatitis Pancreatitis type: unspecified pancreatitis type Qualified Codes: K86.1 - Other chronic pancreatitis Additional Impressions: Chronic renal failure Chronic kidney disease stage: unspecified stage Qualified Codes: N18.9 - Chronic kidney disease, unspecified HTN (hypertension) Hypertension type: unspecified Qualified Codes: I10 - Essential (primary) hypertension Abdominal pain Abdominal location: left lower quadrant Qualified Codes: R10.32 - Left lower quadrant pain LAKEISHA TIM APRN Nov 11, 2018 19:39 NELI VIDES MD Nov 12, 2018 04:23
[2018-11-11 19:40] LABS: BARBITURATES NEG (NEG); BENZODIAZEPINES NEG (NEG); CANNABINOIDS NEG (NEG); COCAINE NEG (NEG); METHADONE NEG (NEG); OPIATES POS (NEG); PHENCYCLIDINE NEG (NEG)
[2018-11-11 19:41] LABS: AMPHETAMINE/METHAMPHETAMINE NEG (NEG); HYALINE CASTS, URINE MODERATE /HPF; SQUAMOUS EPITHELIAL CELL,UR FEW /LPF
[2018-11-11 19:49] LABS: BACTERIA,URINE 0 /HPF (0-FEW); RBC,URINE 0 /HPF (0-2)
== END 2018-11-11 20:20 | disposition home or self-care (01) ==
LOC: ER 15:49
DX: K86.1 Other chronic pancreatitis (principal); I12.9 Hypertensive chronic kidney disease with stage 1 through stage 4 chronic kidney disease, or unspecified chronic kidney disease; E11.22 Type 2 diabetes mellitus with diabetic chronic kidney disease; N18.9 Chronic kidney disease, unspecified; R11.2 Nausea with vomiting, unspecified; E78.00 Pure hypercholesterolemia, unspecified; I25.2 Old myocardial infarction; Z90.49 Acquired absence of other specified parts of digestive tract; Z88.5 Allergy status to narcotic agent
CPT/HCPCS: 36415; 74176; 80053; 80307; 81001; 83690; 85025; 96361; 96374; 96375; 99285; G0480; J2405; J3010; J3490; J7030

== ENCOUNTER → 2019-01-29 | Outpatient (CLI) | payer BC ==
[~2019-01-29] MED LIST changes: +HYDR-3164 PO; +MONT10TA49 PO; -MONT10TA9 PO; +ONDA4TAB12 PO
[2019-01-29 16:03] LABS: BASO # 0.1 x10^3/uL (0.0-0.2); BASO % 1 % (0-3); EOS # 0.2 x10^3/uL (0.0-0.7); EOS % 1 % (0-3); HEMATOCRIT 33.6 % (39.0-53.0); HEMOGLOBIN 11.2 g/dL (13.0-17.5); LYMPH # 2.5 x10^3/uL (1.0-4.8); LYMPH % 19 % (24-48); MEAN CORPUSCULAR HEMOGLOBIN 26 pg (25-35); MEAN CORPUSCULAR HGB CONC 33 g/dL (31-37); MEAN CORPUSCULAR VOLUME 77 fL (79-100); MONO # 0.6 x10^3/uL (0.0-1.1); MONO % 4 % (0-9); NEUT # 9.8 x10^3/uL (1.8-7.7); NEUT % 74 % (31-73); PLATELET COUNT 406 x10^3/uL (140-400); RED BLOOD COUNT 4.34 x10^6/uL (4.30-5.70); RED CELL DISTRIBUTION WIDTH 18.8 % (11.5-14.5); WHITE BLOOD COUNT 13.3 x10^3/uL (4.0-11.0)
[2019-01-29 16:30] LABS: ANISOCYTOSIS SLIGHT; PLT ESTIMATE ADEQUATE (ADEQUATE); TARGET CELLS OCC
[2019-01-29 16:34] LABS: ALBUMIN 2.8 g/dL (3.4-5.0); ALBUMIN/GLOBULIN RATIO 0.8 (1.0-1.7); CALCIUM 8.6 mg/dL (8.5-10.1); CREATININE 2.6 mg/dL (0.7-1.3); GFR 31.5; POTASSIUM 4.1 mmol/L (3.5-5.1); TOTAL BILIRUBIN 0.2 mg/dL (0.2-1.0); TOTAL PROTEIN 6.3 g/dL (6.4-8.2)
[2019-01-29 16:37] LABS: CHOLESTEROL/HDL RATIO 2.4
[2019-01-30 00:07] LABS: HEMOGLOBIN A1C 8.3 % (4.8-5.6)
== END | disposition home or self-care (01) ==
LOC: LAB 15:30
PROVIDERS: ATTEND Internal Medicine
DX: E11.42 Type 2 diabetes mellitus with diabetic polyneuropathy (principal)
CPT/HCPCS: 36415; 80053; 80061; 82550; 83036; 85025

== ENCOUNTER → 2019-03-11 | Outpatient (CLI) | payer BC ==
[~2019-03-11] MED LIST changes: +CYAN-25 PO; -CYAN10005 PO
--- NOTE | 2019-03-11 16:30 | RAD ---
CHEST PA LATERAL CLINICAL INDICATION: Hypertension COMPARISON: None FINDINGS: Heart is normal in size. No aortic calcifications. Lungs are clear. No pneumothorax or pleural effusion. Visualized bony thorax within normal limits. IMPRESSION: No acute pulmonary process. Electronically signed by: Demetrio Valadez DO (03/11/2019 4:27 PM) [facility]
== END | disposition home or self-care (01) ==
LOC: RAD 15:42
PROVIDERS: ATTEND Internal Medicine
DX: I10 Essential (primary) hypertension (principal)
CPT/HCPCS: 71046

== ENCOUNTER → 2019-06-10 | Outpatient (CLI) | payer BC ==
[2019-06-10 15:04] LABS: BASO # 0.2 x10^3/uL (0.0-0.2); BASO % 2 % (0-3); EOS # 0.2 x10^3/uL (0.0-0.7); EOS % 2 % (0-3); HEMATOCRIT 30.9 % (39.0-53.0); HEMOGLOBIN 10.2 g/dL (13.0-17.5); LYMPH # 3.2 x10^3/uL (1.0-4.8); LYMPH % 32 % (24-48); MEAN CORPUSCULAR HEMOGLOBIN 25 pg (25-35); MEAN CORPUSCULAR HGB CONC 33 g/dL (31-37); MEAN CORPUSCULAR VOLUME 77 fL (79-100); MONO # 0.5 x10^3/uL (0.0-1.1); MONO % 5 % (0-9); NEUT # 5.8 x10^3/uL (1.8-7.7); NEUT % 59 % (31-73); PLATELET COUNT 443 x10^3/uL (140-400); RED BLOOD COUNT 4.01 x10^6/uL (4.30-5.70); WHITE BLOOD COUNT 9.9 x10^3/uL (4.0-11.0)
== END | disposition home or self-care (01) ==
LOC: LAB 13:33
PROVIDERS: ATTEND Internal Medicine Infectious Disease
DX: D72.810 Lymphocytopenia (principal)
CPT/HCPCS: 36415; 85025; 86592; 86593; 86703

== ENCOUNTER 2019-09-09 17:14 | Inpatient (IN) | payer BC ==
[2019-09-09] VITALS (7 sets, daily range): BP systolic 149–243; BP diastolic 68–101
[~2019-09-09] VITALS: Ht 165.1 cm; Wt 62.8 kg
[~2019-09-09 17:14] MED LIST changes: +TRAZ-123 PO; -TRAZ-86 PO
[2019-09-09] MEDS ORDERED: IPRATRPIUM/ALBUTEROL 0.5/2.5MG 3 ML NEBU. NEB ONE (17:45)
--- NOTE | 2019-09-09 18:09 | PHYS DOC ---
Past Medical History Past Medical History: Cancer, Diabetes-Type II, High Cholesterol, Hypertension, CO, Pancreatitis Additional Past Medical Histor: pancreatitis (GERARDO VANCE MD) Past Surgical History: Cholecystectomy Additional Past Surgical Histo: back sx, pseudocyst, CARDIAC STENT, SALIVARY GLAND (GERARDO VANCE MD) Smoking Status: Current Every Day Smoker Alcohol Use: None Drug Use: None (GERARDO VANCE MD) Adult General Chief Complaint Chief Complaint: SHORTNESS OF BREATH HPI HPI 54-year-old male presenting the emergency room today with chest pain and shortness of breath. His pain is a pressure sensation that is moderate. It comes and goes. Currently it is mild to moderate. It is nonradiating. He denies unilateral leg swelling hemoptysis or history of DVT. Review of systems is negative for vomiting fevers chills headache. All other review of systems negative. ED course: 54-year-old male presenting to the emergency Department chest pain shortness of breath. EKG obtained and reviewed by myself shows sinus rhythm with a regular rate. ST segments show a peaking T waves. On evaluation the patient is not in any distress his pain is currently improving. I did text EKG to our circus supervisor who agrees that this is not a STEMI equivalent. We will repeat an EKG. Blood work and chest x-ray ordered. Patient was signed out at 6 PM with plans to follow-up on repeat x-ray blood work and reevaluation. (GERARDO VANCE MD) Current Medications Current Medications Current Medications Medications (Trade) Dose Ordered Sig/Ravinder Start Time Stop Time Status Last Admin Dose Admin Albuterol/ Ipratropium (Duoneb) 3 ml 1X ONCE 09/09/19 17:45 09/09/19 17:46 DC 09/09/19 17:47 3 ML Calcium Gluconate (Calcium Gluconate) 1,000 mg 1X ONCE 09/09/19 18:45 09/09/19 18:46 DC Dextrose (Dextrose 50%-Water Syringe) 25 gm 1X ONCE 09/09/19 18:45 09/09/19 18:46 DC Enoxaparin Sodium (Lovenox 100mg Syringe) 100 mg 1X ONCE 09/09/19 19:00 09/09/19 19:01 DC Hydralazine HCl (Apresoline Inj) 10 mg 1X ONCE 09/09/19 18:45 09/09/19 18:46 DC Insulin Human Regular (HumuLIN R VIAL) 10 unit 1X ONCE 09/09/19 18:45 09/09/19 18:46 DC Labetalol HCl (Normodyne Iv Push) 10 mg 1X ONCE 09/09/19 18:30 09/09/19 18:31 DC Nicardipine HCl 50 mg/Sodium Chloride 250 ml @ 25 mls/hr CONT PRN 09/09/19 19:00 Sodium Bicarbonate (Sodium Bicarb Adult 8.4% Syr) 50 meq 1X ONCE 09/09/19 18:45 09/09/19 18:46 DC Sodium Chloride 1,000 ml @ 1,000 mls/hr 1X ONCE 09/09/19 19:30 09/09/19 20:29 UNV (YEIMY ALCALA MD) Allergies Allergies Allergies Coded Allergies Type Severity Reaction Last Updated Verified morphine Allergy Intermediate Itching 09/02/18 Yes (YEIMY ALCALA MD) Physical Exam Physical Exam Constitutional: Well developed, well nourished, no acute distress, non-toxic appearance. HENT: Normocephalic, atraumatic, bilateral external ears normal, oropharynx moist, no oral exudates, nose normal. [] Eyes: PERRLA, EOMI, conjunctiva normal, no discharge. Neck: Normal range of motion, no tenderness, supple, no stridor. [] Cardiovascular:Heart rate regular rhythm, no murmur Lungs & Thorax: Bilateral breath sounds clear to auscultation [] Abdomen: Bowel sounds normal, soft, no tenderness, no masses, no pulsatile masses. Skin: Warm, dry, no erythema, no rash. [] Back: No tenderness, no CVA tenderness. [] Extremities: No tenderness, no cyanosis, no clubbing, ROM intact, no edema. Neurologic: Alert and oriented X 3, normal motor function, normal sensory function, no focal deficits noted. [] Psychologic: Affect normal, judgement normal, mood normal. [] (GERARDO VANCE MD) Current Patient Data Vital Signs Vital Signs Date Time Temp Pulse Resp B/P (MAP) Pulse Ox O2 Delivery O2 Flow Rate FiO2 09/09/19 17:49 97 Room Air 09/09/19 17:44 98.5 68 20 217/109 (145) 98.5 (YEIMY ALCALA MD) Lab Values Laboratory Tests Test 09/09/19 18:09 09/09/19 18:20 D-Dimer (Marcella) 1.10 ug/mlFEU (0.00-0.50) H Sodium Level 133 mmol/L (136-145) L Potassium Level 5.3 mmol/L (3.5-5.1) H Chloride Level 104 mmol/L (98-107) Carbon Dioxide Level 18 mmol/L (21-32) L Anion Gap 11 (6-14) Blood Urea Nitrogen 24 mg/dL (8-26) Creatinine 3.0 mg/dL (0.7-1.3) H Estimated GFR (Cockcroft-Gault) 26.6 Glucose Level 194 mg/dL (70-99) H Calcium Level 8.0 mg/dL (8.5-10.1) L Total Bilirubin 0.2 mg/dL (0.2-1.0) Direct Bilirubin 0.1 mg/dL (0.0-0.2) Aspartate Amino Transferase (AST) 19 U/L (15-37) Alanine Aminotransferase (ALT) 21 U/L (16-63) Alkaline Phosphatase 193 U/L (46-116) H Troponin I Quantitative < 0.017 ng/mL (0.000-0.055) XD-Ivj-H-Type Natriuretic Peptide 7968 pg/mL (0-124) H Total Protein 5.5 g/dL (6.4-8.2) L Albumin 2.6 g/dL (3.4-5.0) L Lipase 50 U/L (73-393) L White Blood Count 9.4 x10^3/uL (4.0-11.0) Red Blood Count 3.36 x10^6/uL (4.30-5.70) L Hemoglobin 9.0 g/dL (13.0-17.5) L Hematocrit 27.3 % (39.0-53.0) L Mean Corpuscular Volume 81 fL (79-100) Mean Corpuscular Hemoglobin 27 pg (25-35) Mean Corpuscular Hemoglobin Concent 33 g/dL (31-37) Red Cell Distribution Width 17.2 % (11.5-14.5) H Platelet Count 353 x10^3/uL (140-400) Neutrophils (%) (Auto) 69 % (31-73) Lymphocytes (%) (Auto) 21 % (24-48) L Monocytes (%) (Auto) 6 % (0-9) Eosinophils (%) (Auto) 2 % (0-3) Basophils (%) (Auto) 2 % (0-3) Neutrophils # (Auto) 6.5 x10^3/uL (1.8-7.7) Lymphocytes # (Auto) 2.0 x10^3/uL (1.0-4.8) Monocytes # (Auto) 0.6 x10^3/uL (0.0-1.1) Eosinophils # (Auto) 0.2 x10^3/uL (0.0-0.7) Basophils # (Auto) 0.1 x10^3/uL (0.0-0.2) Laboratory Tests 09/09/19 18:20 Laboratory Tests 09/09/19 18:09 (YEIMY ALCALA MD) EKG EKG [] (GERARDO VANCE MD) Radiology/Procedures Radiology/Procedures [] (GERARDO VANCE MD) Radiology/Procedures Chest xray reveals minor interstitial edema, will hold on hydration at this time, lasix provided (YEIMY ALCALA MD) Course & Med Decision Making Course & Med Decision Making Pertinent Labs and Imaging studies reviewed. (See chart for details) [] (GERARDO VANCE MD) Course & Med Decision Making Repeat EKG consistent with initial EKG upon arrival. Patient with evidence of hyperkalemia on lab, 5.3 - creat 3.0. K medically treated in ER. Known history of kidney disease however unknown function. Patient provided with hydralazine in ER for elevated BP however no significant improvement. Recommend cardene drip titrate for SBP < 200. Patient with elevated ddimer - lovenox 1.5mg/kg x 1 with plans for V/Q in AM. Patient will be admitted with trending cardiac enzymes and nephrology consult. Discussed admit with PCP (YEIMY ALCALA MD) Dragon Disclaimer Dragon Disclaimer This electronic medical record was generated, in whole or in part, using a voice recognition dictation system. (GERARDO VANCE MD) Departure Departure Impression: Primary Impression: Accelerated hypertension Additional Impressions: Hyperkalemia CKD (chronic kidney disease) Elevated d-dimer Disposition: ADMITTED INPATIENT Admitting Physician: Trina Aldana (YEIMY ALCALA MD) Condition: STABLE Referrals: TRINA ALDANA MD (PCP) Critical Care Time Critical care time was 35 minutes exclusive of procedures. (YEIMY ALCALA MD) Problem Qualifiers Additional Impressions: CKD (chronic kidney disease) Chronic kidney disease stage: stage 3 (moderate) Qualified Codes: N18.3 - Chronic kidney disease, stage 3 (moderate) GERARDO VANCE MD Sep 09, 2019 18:08 YEIMY ALCALA MD Sep 09, 2019 18:40
[2019-09-09 18:28] LABS: GFR 26.6; POTASSIUM 5.3 mmol/L (3.5-5.1)
[2019-09-09] MEDS ORDERED: LABETALOL 20 MG/4 ML DISP.SYRIN. IVP ONE (18:30)
[2019-09-09 18:32] LABS: BASO # 0.1 x10^3/uL (0.0-0.2); BASO % 2 % (0-3); EOS # 0.2 x10^3/uL (0.0-0.7); EOS % 2 % (0-3); HEMATOCRIT 27.3 % (39.0-53.0); LYMPH % 21 % (24-48); MEAN CORPUSCULAR HEMOGLOBIN 27 pg (25-35); MEAN CORPUSCULAR HGB CONC 33 g/dL (31-37); MEAN CORPUSCULAR VOLUME 81 fL (79-100); MONO # 0.6 x10^3/uL (0.0-1.1); MONO % 6 % (0-9); NEUT # 6.5 x10^3/uL (1.8-7.7); NEUT % 69 % (31-73); PLATELET COUNT 353 x10^3/uL (140-400); RED BLOOD COUNT 3.36 x10^6/uL (4.30-5.70); RED CELL DISTRIBUTION WIDTH 17.2 % (11.5-14.5); WHITE BLOOD COUNT 9.4 x10^3/uL (4.0-11.0)
[2019-09-09 18:34] LABS: ALBUMIN 2.6 g/dL (3.4-5.0); DIRECT BILIRUBIN 0.1 mg/dL (0.0-0.2); TOTAL BILIRUBIN 0.2 mg/dL (0.2-1.0); TOTAL PROTEIN 5.5 g/dL (6.4-8.2)
[2019-09-09] MEDS ORDERED: SODIUM BICARB ADULT 8.4% 50 MEQ/50 ML DISP.SYRIN. IV ONE (18:45)
[2019-09-09] MEDS ORDERED: INSULIN REGULAR 100 UNIT/ML 3ML VIAL. IV ONE (18:45)
[2019-09-09] MEDS ORDERED: DEXTROSE 50% 25 GM / 50ML DISP.SYRIN. IV ONE (18:45)
[2019-09-09] MEDS ORDERED: CALCIUM GLUCONATE 1,000 MG/10 ML VIAL. IVP ONE (18:45)
[2019-09-09] MEDS ORDERED: hydrALAZINE 20 MG/ML VIAL. IVP ONE (18:45)
--- NOTE | 2019-09-09 19:13 | RAD ---
EXAM: CHEST AP ONLY INDICATION: soa. TECHNIQUE: Single AP view COMPARISON: None FINDINGS: The heart size is upper normal. The great vessels appear unremarkable. There is no hilar or mediastinal mass. The lungs show interval development of diffuse interstitial opacities with bilateral lower lobe [place] B lines. There is no pleural effusion or pneumothorax. There are no significant osseous abnormalities. IMPRESSION: Developing interstitial pulmonary edema. Electronically signed by: Russell Richards MD (09/09/2019 7:10 PM) [facility]
[2019-09-09] MEDS ORDERED: IV NORMAL SALINE 1000ML BAG 1,000 ML IV ONE (19:30)
[2019-09-09] MEDS ORDERED: FUROSEMIDE 40 MG/4 ML VIAL. IVP ONE (19:30)
[2019-09-09] MEDS ORDERED: ACETAMINOPHEN 325 MG TABLET. PO PRN (19:30)
[2019-09-09] MEDS ORDERED: ONDANSETRON PF 4 MG/2 ML VIAL. IV PRN (19:30)
[2019-09-09] MEDS: IPRATRPIUM/ALBUTEROL 0.5/2.5MG 3 ML NEBU. NEB SCH (19:39)
--- NOTE | 2019-09-09 22:15 | NUR ---
Patient admitted to room 105 from ER at 2100. Patient walked self from ER cart to ICU bed with a steady gait. Monitor on. SR noted. Patient alert and oriented x 4. RA, lungs clear. See assessment. SBP 220s-240s via cuff. Cardene gtt started. No c/o pain or SOA at this time. Call light within reach. Family at bedside. Will continue to monitor.
[2019-09-10] VITALS (23 sets, daily range): BP systolic 121–204; BP diastolic 67–91
[2019-09-10 05:27] LABS: BASO # 0.1 x10^3/uL (0.0-0.2); BASO % 1 % (0-3); EOS % 0 % (0-3); HEMATOCRIT 33.5 % (39.0-53.0); HEMOGLOBIN 10.9 g/dL (13.0-17.5); LYMPH # 1.9 x10^3/uL (1.0-4.8); LYMPH % 18 % (24-48); MEAN CORPUSCULAR HEMOGLOBIN 27 pg (25-35); MEAN CORPUSCULAR HGB CONC 33 g/dL (31-37); MEAN CORPUSCULAR VOLUME 82 fL (79-100); MONO # 0.3 x10^3/uL (0.0-1.1); MONO % 3 % (0-9); NEUT # 8.2 x10^3/uL (1.8-7.7); NEUT % 78 % (31-73); PLATELET COUNT 435 x10^3/uL (140-400); RED BLOOD COUNT 4.09 x10^6/uL (4.30-5.70); RED CELL DISTRIBUTION WIDTH 17.3 % (11.5-14.5); WHITE BLOOD COUNT 10.4 x10^3/uL (4.0-11.0)
[2019-09-10 05:52] LABS: ALBUMIN 2.6 g/dL (3.4-5.0); ALBUMIN/GLOBULIN RATIO 0.9 (1.0-1.7); CALCIUM 8.3 mg/dL (8.5-10.1); GFR 26.6; POTASSIUM 5.2 mmol/L (3.5-5.1); TOTAL BILIRUBIN 0.3 mg/dL (0.2-1.0); TOTAL PROTEIN 5.6 g/dL (6.4-8.2)
--- NOTE | 2019-09-10 06:10 | EKG ---
[facility] [address] [place] [address] Test Date: 2019-09-09 Test Time: 17:33:49 Pat Name: ADAIR PINEDA Department: Room: 105 1 Gender: M Office Nurse Practitioner: : 1965 Requested By: GERARDO VANCE Order Number: [id number] Reading MD: Measurements Intervals [place] Rate: 68 P: 9 [place]: 178 QRS: 15 QRSD: 90 T: -28 QT: 402 QTc: 432 Interpretive Statements SINUS RHYTHM LEFT ATRIAL ABNORMALITY T ABNORMALITY IN INFEROLATERAL LEADS ABNORMAL ECG RI6.01 No previous ECG available for comparison
[2019-09-10] MEDS: IPRATRPIUM/ALBUTEROL 0.5/2.5MG 3 ML NEBU. NEB SCH ×3 (08:01→15:21)
--- NOTE | 2019-09-10 09:50 | EKG ---
[facility] [address] [place] [address] Test Date: 2019-09-09 Test Time: 18:30:18 Pat Name: ADAIR PINEDA Department: Room: 105 1 Gender: M [place]: : 1965 Requested By: GERARDO VANCE Order Number: [id number] Reading MD: Measurements Intervals [place] Rate: 62 P: 42 [place]: 220 QRS: 5 QRSD: 92 T: -138 QT: 434 QTc: 443 Interpretive Statements SINUS RHYTHM PROLONGED [place] INTERVAL LVH WITH REPOLARIZATION ABNORMALITY ABNORMAL ECG RI6.01 Compared to ECG 08/26/2017 13:48:51 First degree AV block now present Left ventricular hypertrophy now present Early repolarization now present Myocardial infarct finding no longer present
[2019-09-10] MEDS ORDERED: HYDROcodone/APAP 7.5/325MG 1 TAB TABLET PO PRN (10:00)
[2019-09-10] MEDS: ASPIRIN ENTERIC COATED 81 MG TABLET.DR. PO SCH (10:19)
[2019-09-10] MEDS: PANTOPRAZOLE 40 MG TABLET.DR. PO SCH (10:19)
[2019-09-10] MEDS: CYANOCOBALAMIN (VITAMIN B-12) 1,000 MCG TABLET. PO SCH (10:24)
[2019-09-10] MEDS: MONTELUKAST SODIUM 10 MG TABLET. PO SCH (10:27)
--- NOTE | 2019-09-10 10:40 | RAD ---
Examination: LUNG VENT/PERFUSION SCAN(VQ) History: Dyspnea, elevated d-dimer Comparison/Correlation: 09/09/2019 AP view of the chest Findings: 10 mCi xenon-133 gas was utilized. Delayed washout of radiotracer is evident suggestive of air trapping or COPD. Relatively less radiotracer is noted at the left mid thoracic level on the anterior as well as posterior projection images. 5.5 mCi technetium 99m MAA was intravenously administered for perfusion imaging. Imaging was performed in 8 projections. Relatively less perfusion is noted at the left mid thoracic level. This corresponds with the ventilation findings. No mismatch defect. No suspicious match defect. Impression: Low probability for pulmonary embolism. Delay in washout of radiotracer in ventilation imaging which may represent underlying COPD or air trapping noted. Electronically signed by: Enoch Trujillo MD (09/10/2019 10:37 AM) [facility] [place]
[2019-09-10] MEDS ORDERED: METOPROLOL SUCC 24HR ER 50 MG TAB.ER.24H. PO SCH (11:00)
--- NOTE | 2019-09-10 11:48 | HP ---
ADMIT DATE: 09/10/2019 HISTORY OF PRESENT ILLNESS: This 54-year-old -[place] male started having dyspnea on and off for 2 days prior to admission. Yesterday, he had tightness in the chest and was quite dyspneic, so he came to the Emergency Room. On his way, he started feeling better again. He denies any cold or congestion, fever, chills, body aches. He has had occasional dry cough. He denies any swelling of the legs. He has had occasional nausea, but no vomiting, diarrhea or constipation. Because of the chest pressure and dyspnea, he came to the Emergency Room. In the Emergency Room, he was noted to be in hypertensive crisis. Blood pressure went up to 190/88 and then went up to 204/91. He was started on IV Nipride drip and placed in ICU. He also was given IV Lasix in the Emergency Room. His chest x-ray showed pulmonary edema. His sodium was 133, potassium was 5.3, BUN 24, creatinine 3.0. BNP was 7968, albumin 2.6, total protein 5.5. His WBC count was 9.4 and hemoglobin was 9. This morning, his dyspnea is improving. REVIEW OF SYSTEMS: The patient denies any fever or chills. Other systems reviewed also and are as noted above. 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 He has a history of chronic pancreatitis, hypertension, anemia, coronary artery disease with stent and a history of myocardial infarction, osteoarthritis, adenocarcinoma of the prostate diagnosed in February 2014 stage 1 with [place] score 6, was treated with radiation treatment, history of hyperlipidemia. His diabetes is type 2, insulin dependent. PAST SURGICAL HISTORY: The patient has had cholecystectomy that was in 1999, treatment for pancreatic pseudocyst that was removed in 2001, lumbar diskectomy in 2008. He again had lumbar microsurgery in August 2017. FAMILY HISTORY: Positive for cancer, diabetes, hypertension and heart disease. ALLERGIES: None known any. MEDICATIONS: Reviewed and reconciled. He is taking Lantus 40 units at bedtime and then takes Humalog 6 units three times a day and adjusts based on his blood sugars. 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 There was history of alcohol abuse, but quit drinking more than 10 years ago. He smokes. He has continued to smoke about 1 pack per day for 20 years. He has been trying to quit. LABORATORY DATA: As noted above. PHYSICAL EXAMINATION: GENERAL: The patient is a middle-aged -[place] male who is alert, oriented, not in acute distress. VITAL SIGNS: Temperature 98.2, pulse 69 per minute, respirations 18 per minute, blood pressure this morning was 200/80 and then 195/76 mmHg. EYES: Pupils reacting to light. Conjunctivae pink. Sclerae white. HEENT: Unremarkable. NECK: Supple. JVP normal. No thyromegaly. Trachea midline. LUNGS: Clear with decreased breath sounds at bases. CARDIOVASCULAR: S1, S2 regular. ABDOMEN: Soft, nontender. No guarding, no rigidity. Bowel sounds present. EXTREMITIES: No edema. CENTRAL NERVOUS SYSTEM: Generalized weakness. Moves extremities. Alert and oriented. IMPRESSION: 1. Acute pulmonary edema. 2. Dyspnea. 3. Hypertensive crisis. 4. Possible chronic obstructive pulmonary disease. 5. Diabetes mellitus type 2 with neuropathy. 6. Chronic kidney disease stage 4. 7. Coronary artery disease. 8. Chronic pancreatitis. 9. Anemia. 10. History of myocardial infarction. 11. 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 12. 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 13. History of prostate cancer, treated with radiation therapy. PLAN: Consult Dr. Riddle for nephrology evaluation and management, Dr. Gray for pulmonary evaluation and management, Dr. Kaur for cardiology evaluation and management. For details, please refer to the orders. The patient underwent a V/Q scan to check for blood clots. The patient had a dose of Lovenox 100 mg subcutaneously x 1 yesterday. I will put him on heparin 5000 units subcutaneously every 12 hours and await evaluation and treatment from the specialist. Clinically, he is much better. Continue Nipride drip. I have restarted his metoprolol and other medications. The patient will be closely monitored in the Intensive Care Unit. For details, please refer to the orders. TRINA ALDANA MD DR: VAZQUEZ/rene JOB#: [id number] / [id number]
[2019-09-10] MEDS: LIPASE/PROTEAS/AMYLAS 10/32/42 CAPSULE.DR. PO SCH ×2 (12:00→17:50)
--- NOTE | 2019-09-10 13:01 | CONS ---
DATE OF CONSULTATION: PULMONARY CONSULTATION ATTENDING PHYSICIAN: Julissa Valadez MD REASON FOR CONSULTATION: Dyspnea. HISTORY OF PRESENT ILLNESS: The patient is a 54-year-old male who has been a smoker for 38 years. He presented to the hospital with complaint of shortness of breath for the last 2 days. He had some chest discomfort as well. No significant cough, no fever, no chills, no headaches, no nausea, vomiting or diarrhea. He was seen in the Emergency Room, he was hypertensive with a systolic blood pressure up to 204. He was started on IV Nipride drip. His chest x-ray was consistent with interstitial edema. He had abnormal D-dimer of 1.1. As a result, he underwent V/Q scan which showed low probability for pulmonary embolism. He was given Lasix. He has CKD. He clinically feels better. He is on a Cardene drip. PAST MEDICAL HISTORY: Significant for tobaccoism, suspect underlying COPD, history of diabetes, history of CKD, history of nephropathy, history of chronic pancreatitis, hypertension, anemia, coronary artery disease with stent and history of myocardial infarction. PAST SURGICAL HISTORY: Cholecystectomy and others as discussed in H and P. FAMILY HISTORY: Positive for cancer, diabetes, hypertension, and heart disease. ALLERGIES: MORPHINE. CURRENT MEDICATIONS: Reviewed as listed in the MRAD. REVIEW OF SYSTEMS: Twelve-point system obtained. Pertinent positives discussed in my history of present illness, otherwise noncontributory. All systems that were negative were reviewed as well. SOCIAL HISTORY: Smoked for 38 years. PHYSICAL EXAMINATION: VITAL SIGNS: His current blood pressure 158 systolic. His pulse ox is 100% on room air, afebrile. HEENT: Sclerae nonicteric. NECK: Supple. LUNGS: With slightly diminished breath sounds posteriorly. CARDIOVASCULAR: With a regular rate. ABDOMEN: Soft, nontender. EXTREMITIES: With no pitting edema. LABORATORY DATA: Labs were reviewed. BUN 25, creatinine 3.0. Troponin normal. ProBNP 7968. White cell count 10.4, hemoglobin 10.9, platelets are 435. IMPRESSION: 1. Dyspnea secondary to acute interstitial edema, triggered by hypertensive crisis. 2. Chronic kidney disease. 3. Hypertension, under suboptimal control, presenting as hypertensive crisis. 4. Underlying 38 years of tobaccoism, suspect underlying chronic obstructive pulmonary disease. 5. Abnormal chest x-ray consistent with congestive heart failure. RECOMMENDATIONS: 1. From a pulmonary standpoint, he is clinically better after receiving Lasix. He is not on oxygen. 2. Optimization of blood pressure per Cardiology. He is currently on a Cardene drip. 3. Follow up chest x-ray as needed. 4. No evidence of pulmonary embolism by V/Q scan. 5. Follow renal function. Nephrology recommendations. 6. Discussed with the patient's family and RN. We will follow as needed. Critical care time 35 minutes. FABY ROSE MD DR: BRNUO/rene JOB#: [id number] / [id number]
--- NOTE | 2019-09-10 13:31 | PDOC2 ---
CONSULT Date of Consult Date of Consult DATE: 09/10/19 TIME: 13:08 Reason for Consult Reason for Consult: AASHISH Identification/Chief Complaint Chief Complaint " Im feeling much better, couldnt breath yesterday " Source Source: Chart review, Patient History of Present Illness Reason for Visit: Pt is a 54-year-old -French male started having dyspnea on and off for 2 days prior to admission. Yesterday, he had tightness in the chest and was quite dyspneic, couldnt bend to tie his shoes as abdomen feeling bloated and he was feeling very sob so he came to the Emergency Room. He denies any cold or congestion, fever, chills, body aches. Denies any LE edema . No N/V /D . He reports his home BP varies a lot from 190 systolic to normal BP. Denies any change in meds recently and is on HCTZ at home (not listed in his Reconciled med list )- Not sure if accurate information . He is aware that his kidney function has been abnormal for long time , doesnt see Nephrology, follows with PCP No urinary complaints in general, sometimes feels that his bladder is not completely empty . Denies Symptoms of MIKHAIL, No ETOH or RecDrugs use . States has been stressed at work - working 2 shifts . Denies NSAID use or any OTC health supplements In the Emergency Room, he was noted to be in hypertensive crisis. Blood pressure went up to 190/88 and then went up to 204/91. He was started on IV Nipride drip and placed in ICU. He also was given IV Lasix in the Emergency Room. His chest x-ray showed pulmonary edema. His sodium was 133,potassium was 5.3, BUN 24, creatinine 3.0. protein 5.5. 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 He has a history of chronic pancreatitis, hypertension, anemia, coronary artery disease with stent and a history of myocardial infarction, osteoarthritis, adenocarcinoma of the prostate diagnosed in February 2014 stage 1 with Mily score 6, was treated with radiation treatment, history of hyperlipidemia. His diabetes is type 2, insulin dependent . Past Surgical History Past Surgical History The patient has had cholecystectomy that was in 1999, treatment for pancreatic pseudocyst that was removed in 2001, lumbar diskectomy in 2008. He again had lumbar microsurgery in August 2017. Family History Family History Positive for cancer, diabetes, hypertension and heart disease. 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 There was history of alcohol abuse, but quit drinking more than 10 years ago. He smokes. He has continued to smoke about 1 pack per day for 20 years. He has been trying to quit. Current Problem List Problem List Problems Medical Problems: (1) Accelerated hypertension Status: Acute (2) CKD (chronic kidney disease) Status: Acute (3) Elevated d-dimer Status: Acute (4) Hyperkalemia Status: Acute Current Medications Current Medications Current Medications Albuterol/ Ipratropium (Duoneb) 3 ml 1X ONCE NEB Last administered on 09/09/19at 17:47; Start 09/09/19 at 17:45; Stop 09/09/19 at 17:46; Status DC Labetalol HCl (Normodyne Iv Push) 10 mg 1X ONCE IVP Last administered on 09/09/19at 20:32; Start 09/09/19 at 18:30; Stop 09/09/19 at 18:31; Status DC Calcium Gluconate (Calcium Gluconate) 1,000 mg 1X ONCE IVP Last administered on 09/09/19at 19:52; Start 09/09/19 at 18:45; Stop 09/09/19 at 18:46; Status DC Sodium Bicarbonate (Sodium Bicarb Adult 8.4% Syr) 50 meq 1X ONCE IV Last administered on 09/09/19at 19:52; Start 09/09/19 at 18:45; Stop 09/09/19 at 18:46; Status DC Dextrose (Dextrose 50%-Water Syringe) 25 gm 1X ONCE IV Last administered on 09/09/19at 19:53; Start 09/09/19 at 18:45; Stop 09/09/19 at 18:46; Status DC Insulin Human Regular (HumuLIN R VIAL) 10 unit 1X ONCE IV Last administered on 09/09/19at 19:54; Start 09/09/19 at 18:45; Stop 09/09/19 at 18:46; Status DC Hydralazine HCl (Apresoline Inj) 10 mg 1X ONCE IVP Last administered on 09/09/19at 19:49; Start 09/09/19 at 18:45; Stop 09/09/19 at 18:46; Status DC Enoxaparin Sodium (Lovenox 100mg Syringe) 100 mg 1X ONCE SQ Last administered on 09/09/19at 19:49; Start 09/09/19 at 19:00; Stop 09/09/19 at 19:01; Status DC Nicardipine HCl 50 mg/Sodium Chloride 250 ml @ 25 mls/hr CONT PRN IV SEE I/O RECORD Last administered on 09/09/19at 21:56; Start 09/09/19 at 19:00 Sodium Chloride 1,000 ml @ 1,000 mls/hr 1X ONCE IV ; Start 09/09/19 at 19:30; Stop 09/09/19 at 20:29; Status UNV Furosemide (Lasix) 40 mg 1X ONCE IVP Last administered on 09/09/19at 19:51; Start 09/09/19 at 19:30; Stop 09/09/19 at 19:31; Status DC Ondansetron HCl (Zofran) 4 mg PRN Q8HRS PRN IV NAUSEA/VOMITING; Start 09/09/19 at 19:30; Stop 09/10/19 at 19:29 Acetaminophen (Tylenol) 650 mg PRN Q4HRS PRN PO FEVER; Start 09/09/19 at 19:30; Stop 09/10/19 at 19:29 Albuterol/ Ipratropium (Duoneb) 3 ml RTQID NEB Last administered on 09/10/19at 11:53; Start 09/09/19 at 20:00; Stop 09/10/19 at 19:59 Aspirin (Ecotrin) 81 mg DAILY PO Last administered on 09/10/19at 10:19; Start 09/10/19 at 11:00 Cyanocobalamin (Vitamin B-12) 1,000 mcg DAILY PO Last administered on 09/10/19at 10:24; Start 09/10/19 at 11:00 Acetaminophen/ Hydrocodone Bitart (Lortab 7.5/325) 1 tab PRN Q6HRS PRN PO PAIN; Start 09/10/19 at 10:00 Metoprolol Succinate (Toprol Xl) 50 mg DAILY PO Last administered on 09/10/19at 10:19; Start 09/10/19 at 11:00 Montelukast Sodium (Singulair) 10 mg DAILY PO Last administered on 09/10/19at 10:27; Start 09/10/19 at 11:00 Trazodone HCl (Desyrel) 100 mg QHS PO ; Start 09/10/19 at 21:00 Atorvastatin Calcium (Lipitor) 80 mg QHS PO ; Start 09/10/19 at 21:00 Insulin Glargine (Lantus Syringe) 40 unit QHS SQ ; Start 09/10/19 at 21:00 Amylase/Lipase/ Protease (Zenpep 10,000) 3 cap TIDWMEALS PO ; Start 09/10/19 at 12:00 Pantoprazole Sodium (Protonix) 40 mg DAILYAC PO Last administered on 09/10/19at 10:19; Start 09/10/19 at 11:00 Insulin Human Lispro (HumaLOG) 0-10 UNITS TIDBFRMEAL SQ ; Start 09/10/19 at 16:30 Active Scripts Active Bolivar 5-325 Tablet (Acetaminophen/Hydrocodone Bitart) 1 Each Tablet 1 Tab PO Q6HRS Ondansetron Odt (Ondansetron) 4 Mg Tab.rapdis 1 Tab PO PRN Q6-8HRS Hydrocodone-Apap 7.5-325 (Hydrocodone Bit/Acetaminophen) 1 Each Tablet 1 Tab PO PRN Q6HRS PRN Reported Vitamin B-12 (Cyanocobalamin (Vitamin B-12)) 1,000 Mcg Tablet 1 Tab PO DAILY Aspir 81 (Aspirin) 81 Mg Tablet. 1 Tab PO DAILY Trazodone Hcl 100 Mg Tablet 1 Tab PO QHS Montelukast Sodium Tablet (Montelukast Sodium) 10 Mg Tablet 1 Tab PO DAILY Metoprolol Succinate ( Xl ) (Metoprolol Succinate) 25 Mg Tab.er.24h 50 Mg PO DAILY Atorvastatin Calcium 80 Mg Tablet 1 Tab PO DAILY Humulin R (Insulin Regular, Human) 100 Unit/1 Ml Vial 100 Unit IJ SLIDING SCALE BID Lantus Solostar (Insulin Glargine,Hum.rec.anlog) 100 Unit/1 Ml Insuln.pen 40 Unit SQ QHS Zenpep 15,000 Units Capsule (Lipase/Protease/Amylase) 1 Each Capsule. 1 Each PO 2 TABS TID DAILY Prilosec (Omeprazole) 40 Mg Capsule. 40 Mg PO DAILY Allergies Allergies: Coded Allergies: morphine (Verified Allergy, Intermediate, Itching, 09/02/18) ROS Review of System Per HPI Physical Exam Physical Exam GENERAL: NAD HEENT: Unremarkable, OM moist, On RA NECK: Supple. LUNGS: Clear with decreased breath sounds at bases, Non labored CARDIOVASCULAR: S1, S2 regular. ABDOMEN: Soft, nontender. No guarding, no rigidity. Bowel sounds present. EXTREMITIES: No edema. CENTRAL NERVOUS SYSTEM: Alert and oriented, grossly normal SKIN- no rash - No Bob, No SP or CVA tenderness Vital Signs Vital Signs Date Time Temp Pulse Resp B/P (MAP) Pulse Ox O2 Delivery O2 Flow Rate FiO2 09/10/19 12:00 98.2 105 158/89 (112) 100 Room Air 98.2 09/10/19 11:17 21 Assessment & Plan AASHISH -- Hypertensive crisis / Progression of CKD UA in october Unremarkable, No e/o GN Ct scan in - Unremarkable Kidneys and bladder Supportive care, Strict I/O, avoid Nephrotoxins CKD stage 3 - Cr elevated since 2017 1,.5, up to 2.5 in 10/2018 per [facility] records No other available to me , Per pt doesnt follow with Neph as OP Acute pulmonary edema- Improved with lasix in the ER Not on KWAN-or ARB Hyperkalemia - Mild, Monitor HTN -Hypertensive crisis Home readings high Recommend Renal Doppler , CT scan in 10/2018 - adrenals not reported , Cardiology managing DM - Per primary Hx of Prostate cancer AdenoCa - Treated with radiation Chronic Pancreatitis Coronary artery disease. Anemia- chronic Labs Labs Laboratory Tests Test 09/09/19 18:09 09/09/19 18:20 09/10/19 04:15 09/10/19 08:32 D-Dimer (Marcella) 1.10 ug/mlFEU (0.00-0.50) Sodium Level 133 mmol/L (136-145) 132 mmol/L (136-145) Potassium Level 5.3 mmol/L (3.5-5.1) 5.2 mmol/L (3.5-5.1) Chloride Level 104 mmol/L (98-107) 100 mmol/L (98-107) Carbon Dioxide Level 18 mmol/L (21-32) 19 mmol/L (21-32) Anion Gap 11 (6-14) 13 (6-14) Blood Urea Nitrogen 24 mg/dL (8-26) 25 mg/dL (8-26) Creatinine 3.0 mg/dL (0.7-1.3) 3.0 mg/dL (0.7-1.3) Estimated GFR (Cockcroft-Gault) 26.6 26.6 Glucose Level 194 mg/dL (70-99) 157 mg/dL (70-99) Calcium Level 8.0 mg/dL (8.5-10.1) 8.3 mg/dL (8.5-10.1) Total Bilirubin 0.2 mg/dL (0.2-1.0) 0.3 mg/dL (0.2-1.0) Direct Bilirubin 0.1 mg/dL (0.0-0.2) Aspartate Amino Transf (AST/SGOT) 19 U/L (15-37) 26 U/L (15-37) Alanine Aminotransferase (ALT/SGPT) 21 U/L (16-63) 27 U/L (16-63) Alkaline Phosphatase 193 U/L (46-116) 204 U/L (46-116) Troponin I Quantitative < 0.017 ng/mL (0.000-0.055) DJ-Inx-R-Type Natriuretic Peptide 7968 pg/mL (0-124) Total Protein 5.5 g/dL (6.4-8.2) 5.6 g/dL (6.4-8.2) Albumin 2.6 g/dL (3.4-5.0) 2.6 g/dL (3.4-5.0) Lipase 50 U/L (73-393) White Blood Count 9.4 x10^3/uL (4.0-11.0) 10.4 x10^3/uL (4.0-11.0) Red Blood Count 3.36 x10^6/uL (4.30-5.70) 4.09 x10^6/uL (4.30-5.70) Hemoglobin 9.0 g/dL (13.0-17.5) 10.9 g/dL (13.0-17.5) Hematocrit 27.3 % (39.0-53.0) 33.5 % (39.0-53.0) Mean Corpuscular Volume 81 fL (79-100) 82 fL (79-100) Mean Corpuscular Hemoglobin 27 pg (25-35) 27 pg (25-35) Mean Corpuscular Hemoglobin Concent 33 g/dL (31-37) 33 g/dL (31-37) Red Cell Distribution Width 17.2 % (11.5-14.5) 17.3 % (11.5-14.5) Platelet Count 353 x10^3/uL (140-400) 435 x10^3/uL (140-400) Neutrophils (%) (Auto) 69 % (31-73) 78 % (31-73) Lymphocytes (%) (Auto) 21 % (24-48) 18 % (24-48) Monocytes (%) (Auto) 6 % (0-9) 3 % (0-9) Eosinophils (%) (Auto) 2 % (0-3) 0 % (0-3) Basophils (%) (Auto) 2 % (0-3) 1 % (0-3) Neutrophils # (Auto) 6.5 x10^3/uL (1.8-7.7) 8.2 x10^3/uL (1.8-7.7) Lymphocytes # (Auto) 2.0 x10^3/uL (1.0-4.8) 1.9 x10^3/uL (1.0-4.8) Monocytes # (Auto) 0.6 x10^3/uL (0.0-1.1) 0.3 x10^3/uL (0.0-1.1) Eosinophils # (Auto) 0.2 x10^3/uL (0.0-0.7) 0.0 x10^3/uL (0.0-0.7) Basophils # (Auto) 0.1 x10^3/uL (0.0-0.2) 0.1 x10^3/uL (0.0-0.2) BUN/Creatinine Ratio 8 (6-20) Albumin/Globulin Ratio 0.9 (1.0-1.7) Glucose (Fingerstick) 161 mg/dL (70-99) Test 09/10/19 13:04 Glucose (Fingerstick) 220 mg/dL (70-99) Laboratory Tests Test 09/09/19 18:09 09/09/19 18:20 09/10/19 04:15 09/10/19 08:32 D-Dimer (Marcella) 1.10 ug/mlFEU (0.00-0.50) Sodium Level 133 mmol/L (136-145) 132 mmol/L (136-145) Potassium Level 5.3 mmol/L (3.5-5.1) 5.2 mmol/L (3.5-5.1) Chloride Level 104 mmol/L (98-107) 100 mmol/L (98-107) Carbon Dioxide Level 18 mmol/L (21-32) 19 mmol/L (21-32) Anion Gap 11 (6-14) 13 (6-14) Blood Urea Nitrogen 24 mg/dL (8-26) 25 mg/dL (8-26) Creatinine 3.0 mg/dL (0.7-1.3) 3.0 mg/dL (0.7-1.3) Estimated GFR (Cockcroft-Gault) 26.6 26.6 Glucose Level 194 mg/dL (70-99) 157 mg/dL (70-99) Calcium Level 8.0 mg/dL (8.5-10.1) 8.3 mg/dL (8.5-10.1) Total Bilirubin 0.2 mg/dL (0.2-1.0) 0.3 mg/dL (0.2-1.0) Direct Bilirubin 0.1 mg/dL (0.0-0.2) Aspartate Amino Transf (AST/SGOT) 19 U/L (15-37) 26 U/L (15-37) Alanine Aminotransferase (ALT/SGPT) 21 U/L (16-63) 27 U/L (16-63) Alkaline Phosphatase 193 U/L (46-116) 204 U/L (46-116) Troponin I Quantitative < 0.017 ng/mL (0.000-0.055) BZ-Ypo-O-Type Natriuretic Peptide 7968 pg/mL (0-124) Total Protein 5.5 g/dL (6.4-8.2) 5.6 g/dL (6.4-8.2) Albumin 2.6 g/dL (3.4-5.0) 2.6 g/dL (3.4-5.0) Lipase 50 U/L (73-393) White Blood Count 9.4 x10^3/uL (4.0-11.0) 10.4 x10^3/uL (4.0-11.0) Red Blood Count 3.36 x10^6/uL (4.30-5.70) 4.09 x10^6/uL (4.30-5.70) Hemoglobin 9.0 g/dL (13.0-17.5) 10.9 g/dL (13.0-17.5) Hematocrit 27.3 % (39.0-53.0) 33.5 % (39.0-53.0) Mean Corpuscular Volume 81 fL (79-100) 82 fL (79-100) Mean Corpuscular Hemoglobin 27 pg (25-35) 27 pg (25-35) Mean Corpuscular Hemoglobin Concent 33 g/dL (31-37) 33 g/dL (31-37) Red Cell Distribution Width 17.2 % (11.5-14.5) 17.3 % (11.5-14.5) Platelet Count 353 x10^3/uL (140-400) 435 x10^3/uL (140-400) Neutrophils (%) (Auto) 69 % (31-73) 78 % (31-73) Lymphocytes (%) (Auto) 21 % (24-48) 18 % (24-48) Monocytes (%) (Auto) 6 % (0-9) 3 % (0-9) Eosinophils (%) (Auto) 2 % (0-3) 0 % (0-3) Basophils (%) (Auto) 2 % (0-3) 1 % (0-3) Neutrophils # (Auto) 6.5 x10^3/uL (1.8-7.7) 8.2 x10^3/uL (1.8-7.7) Lymphocytes # (Auto) 2.0 x10^3/uL (1.0-4.8) 1.9 x10^3/uL (1.0-4.8) Monocytes # (Auto) 0.6 x10^3/uL (0.0-1.1) 0.3 x10^3/uL (0.0-1.1) Eosinophils # (Auto) 0.2 x10^3/uL (0.0-0.7) 0.0 x10^3/uL (0.0-0.7) Basophils # (Auto) 0.1 x10^3/uL (0.0-0.2) 0.1 x10^3/uL (0.0-0.2) BUN/Creatinine Ratio 8 (6-20) Albumin/Globulin Ratio 0.9 (1.0-1.7) Glucose (Fingerstick) 161 mg/dL (70-99) Test 09/10/19 13:04 Glucose (Fingerstick) 220 mg/dL (70-99) Review All relevant outside records, renal labs, imaging studies, telemetry/EKG's were reviewed. CARLO CHAUHAN MD Sep 10, 2019 13:31
--- NOTE | 2019-09-10 15:05 | PDOC2 ---
MARÍA BURNS MANAGER OF OPERATIONS 09/10/19 1505: CARDIAC CONSULT DATE OF CONSULT Date of Consult DATE: 09/10/19 TIME: 14:59 REASON FOR CONSULT Reason for Consult: HTN crisis REFERRING PHYSICIAN Referring Physician: Rory SOURCE Source: Chart review, Patient HISTORY OF PRESENT ILLNESS HISTORY OF PRESENT ILLNESS This is a pleasant 54 yo male admitted for complains of shortness of breath and high BP. No focal neuro symptoms. No exertional CP but in the last few days he has been having dull achy right In the last week he has been having SOA and was worse 2 days ago. Denies any frequent dizziness or palpitations and no wheezing. His SBP has been in the 180s despite him taking his multiple meds. Denies any recreational drugs, ETOH but does drink significant amount of coffee as he works at [employer]. No red bull or any allergy medication use that has sudafed and for the most part he is not consistently eating fast food, canned goods or ramen. Has not been able to sleep well recently and has not been feeling well. No peripheral edema. Denies any MIKHAIL. No frequent coughing, falls or any injury. Verbalized compliance with his medications. He has CAD and has not seen a deli/bakery associate since 2016. PAST MEDICAL HISTORY Cardiovascular: CAD, HTN, Hyperlipidemia Pulmonary: No pertinent hx GI: GERD, Other (colon polyp; chronic pancreatitis) Heme/Onc: Anemia NOS, Cancer (psotate with radiation), Other (Hx of elevate saman ocystine and +heterozygous MTHFR treated with B12 per hematology noted 05/2018 and mildly decrease protein S) Hepatobiliary: Other (gall bladder disease) Psych: Anxiety, Other (PTSD) Musculoskeletal: low back pain, Osteoarthritis Rheumatologic: No pertinent hx Infectious disease: No pertinent hx ENT: Allergic Rhinitis Renal/: Chronic renal insuff, Prostate Ca. Endocrine: Diabetes (2) Dermatology: No pertinent hx PAST SURGICAL HISTORY Past Surgical History: Cholecystectomy, Tonsillectomy, Other (PCI/stent; abd surgery; back surgery) FAMILY HISTORY Family History: Coronary Artery Disease (borther in his 40s), Diabetes SOCIAL HISTORY Smoke: <1 pack per day ALCOHOL: none Drugs: None Lives: Alone CURRENT MEDICATIONS CURRENT MEDICATIONS Current Medications Medications (Trade) Dose Ordered Sig/Ravinder Route PRN Reason Start Time Stop Time Status Last Admin Dose Admin Albuterol/ Ipratropium (Duoneb) 3 ml 1X ONCE NEB 09/09/19 17:45 09/09/19 17:46 DC 09/09/19 17:47 Labetalol HCl (Normodyne Iv Push) 10 mg 1X ONCE IVP 09/09/19 18:30 09/09/19 18:31 DC 09/09/19 20:32 Calcium Gluconate (Calcium Gluconate) 1,000 mg 1X ONCE IVP 09/09/19 18:45 09/09/19 18:46 DC 09/09/19 19:52 Sodium Bicarbonate (Sodium Bicarb Adult 8.4% Syr) 50 meq 1X ONCE IV 09/09/19 18:45 09/09/19 18:46 DC 09/09/19 19:52 Dextrose (Dextrose 50%-Water Syringe) 25 gm 1X ONCE IV 09/09/19 18:45 09/09/19 18:46 DC 09/09/19 19:53 Insulin Human Regular (HumuLIN R VIAL) 10 unit 1X ONCE IV 09/09/19 18:45 09/09/19 18:46 DC 09/09/19 19:54 Hydralazine HCl (Apresoline Inj) 10 mg 1X ONCE IVP 09/09/19 18:45 09/09/19 18:46 DC 09/09/19 19:49 Enoxaparin Sodium (Lovenox 100mg Syringe) 100 mg 1X ONCE SQ 09/09/19 19:00 09/09/19 19:01 DC 09/09/19 19:49 Nicardipine HCl 50 mg/Sodium Chloride 250 ml @ 25 mls/hr CONT PRN IV SEE I/O RECORD 09/09/19 19:00 09/09/19 21:56 Furosemide (Lasix) 40 mg 1X ONCE IVP 09/09/19 19:30 09/09/19 19:31 DC 09/09/19 19:51 Albuterol/ Ipratropium (Duoneb) 3 ml RTQID NEB 09/09/19 20:00 09/10/19 19:59 09/10/19 11:53 Aspirin (Ecotrin) 81 mg DAILY PO 09/10/19 11:00 09/10/19 10:19 Cyanocobalamin (Vitamin B-12) 1,000 mcg DAILY PO 09/10/19 11:00 09/10/19 10:24 Metoprolol Succinate (Toprol Xl) 50 mg DAILY PO 09/10/19 11:00 09/10/19 10:19 Montelukast Sodium (Singulair) 10 mg DAILY PO 09/10/19 11:00 09/10/19 10:27 Pantoprazole Sodium (Protonix) 40 mg DAILYAC PO 09/10/19 11:00 09/10/19 10:19 ALLERGIES ALLERGIES: Coded Allergies: morphine (Verified Allergy, Intermediate, Itching, 09/02/18) ROS Review of System 14 point ROS evaluated with pertinent positives noted per HPI PHYSICAL EXAM General: Alert, Oriented X3 HEENT: Atraumatic, Mucous membr. moist/pink Lungs: Other (asilar crackles) Heart: Regular rate (SR), Other (2/6 systolic murmur to LLS border) Abdomen: Soft, No tenderness Extremities: No cyanosis, No edema, Other (bounding peripheral pulses) Skin: No breakdown, No significant lesion Neuro: Normal speech, Sensation intact Psych/Mental Status: Mental status NL, Mood NL MUSCULOSKELETAL: Full range of motion without pain VITALS/I&O VITALS/I&O: Vital Signs Date Time Temp Pulse Resp B/P (MAP) Pulse Ox O2 Delivery O2 Flow Rate FiO2 09/10/19 14:00 66 156/70 (98) 99 Room Air 09/10/19 13:07 98.6 19 98.6 I & O 09/09/19 09/09/19 09/10/19 15:00 23:00 07:00 Intake Total 720 ml 478 ml Output Total 400 ml 450 ml Balance 320 ml 28 ml LABS Lab: Laboratory Tests Test 09/09/19 18:09 09/09/19 18:20 09/10/19 04:15 09/10/19 08:32 D-Dimer (Marcella) 1.10 ug/mlFEU (0.00-0.50) H Sodium Level 133 mmol/L (136-145) L 132 mmol/L (136-145) L Potassium Level 5.3 mmol/L (3.5-5.1) H 5.2 mmol/L (3.5-5.1) H Chloride Level 104 mmol/L (98-107) 100 mmol/L (98-107) Carbon Dioxide Level 18 mmol/L (21-32) L 19 mmol/L (21-32) L Anion Gap 11 (6-14) 13 (6-14) Blood Urea Nitrogen 24 mg/dL (8-26) 25 mg/dL (8-26) Creatinine 3.0 mg/dL (0.7-1.3) H 3.0 mg/dL (0.7-1.3) H Estimated GFR (Cockcroft-Gault) 26.6 26.6 Glucose Level 194 mg/dL (70-99) H 157 mg/dL (70-99) H Calcium Level 8.0 mg/dL (8.5-10.1) L 8.3 mg/dL (8.5-10.1) L Total Bilirubin 0.2 mg/dL (0.2-1.0) 0.3 mg/dL (0.2-1.0) Direct Bilirubin 0.1 mg/dL (0.0-0.2) Aspartate Amino Transferase (AST) 19 U/L (15-37) 26 U/L (15-37) Alanine Aminotransferase (ALT) 21 U/L (16-63) 27 U/L (16-63) Alkaline Phosphatase 193 U/L (46-116) H 204 U/L (46-116) H Troponin I Quantitative < 0.017 ng/mL (0.000-0.055) OJ-Vtc-Q-Type Natriuretic Peptide 7968 pg/mL (0-124) H Total Protein 5.5 g/dL (6.4-8.2) L 5.6 g/dL (6.4-8.2) L Albumin 2.6 g/dL (3.4-5.0) L 2.6 g/dL (3.4-5.0) L Lipase 50 U/L (73-393) L White Blood Count 9.4 x10^3/uL (4.0-11.0) 10.4 x10^3/uL (4.0-11.0) Red Blood Count 3.36 x10^6/uL (4.30-5.70) L 4.09 x10^6/uL (4.30-5.70) L Hemoglobin 9.0 g/dL (13.0-17.5) L 10.9 g/dL (13.0-17.5) L Hematocrit 27.3 % (39.0-53.0) L 33.5 % (39.0-53.0) L Mean Corpuscular Volume 81 fL (79-100) 82 fL (79-100) Mean Corpuscular Hemoglobin 27 pg (25-35) 27 pg (25-35) Mean Corpuscular Hemoglobin Concent 33 g/dL (31-37) 33 g/dL (31-37) Red Cell Distribution Width 17.2 % (11.5-14.5) H 17.3 % (11.5-14.5) H Platelet Count 353 x10^3/uL (140-400) 435 x10^3/uL (140-400) H Neutrophils (%) (Auto) 69 % (31-73) 78 % (31-73) H Lymphocytes (%) (Auto) 21 % (24-48) L 18 % (24-48) L Monocytes (%) (Auto) 6 % (0-9) 3 % (0-9) Eosinophils (%) (Auto) 2 % (0-3) 0 % (0-3) Basophils (%) (Auto) 2 % (0-3) 1 % (0-3) Neutrophils # (Auto) 6.5 x10^3/uL (1.8-7.7) 8.2 x10^3/uL (1.8-7.7) H Lymphocytes # (Auto) 2.0 x10^3/uL (1.0-4.8) 1.9 x10^3/uL (1.0-4.8) Monocytes # (Auto) 0.6 x10^3/uL (0.0-1.1) 0.3 x10^3/uL (0.0-1.1) Eosinophils # (Auto) 0.2 x10^3/uL (0.0-0.7) 0.0 x10^3/uL (0.0-0.7) Basophils # (Auto) 0.1 x10^3/uL (0.0-0.2) 0.1 x10^3/uL (0.0-0.2) BUN/Creatinine Ratio 8 (6-20) Albumin/Globulin Ratio 0.9 (1.0-1.7) L Glucose (Fingerstick) 161 mg/dL (70-99) H Test 09/10/19 13:04 Glucose (Fingerstick) 220 mg/dL (70-99) H Laboratory Tests 09/09/19 18:20 09/10/19 04:15 Laboratory Tests 09/09/19 18:09 09/10/19 04:15 ECHOCARDIOGRAM ECHOCARDIOGRAM <Conclusion> The left ventricular systolic function is normal and the ejection fraction is within normal range. The Ejection Fraction is 60-65%. Doppler and Color Flow revealed trace tricuspid regurgitation. Tricuspid regurgitant velocity is not well defined. The IVC is normal in size and collapses >50% with inspiration. There is no evidence of significant pericardial effusion. DATE: 06/11/141807 HEART CATH HEART CATH [facility] 12/06/2014 DIAGNOSTIC CORONARY ANGIOGRAPHY: RIGHT CORONARY ARTERY: The RCA is a large dominant vessel without significant angiographic stenosis. It divides into a large circumflex and a large PDA, both of which are angiographically unremarkable. LEFT MAIN CORONARY ARTERY: The patient does not have a left main coronary artery but has separate origins of the LAD and the circumflex. LEFT CIRCUMFLEX ARTERY: The left circumflex artery is a very large though nondominant vessel, arising normally from the ascending aortic sinus. It has a couple of small obtuse marginals arising from its very proximal portion and then the mid circumflex artery gives rise to a medium-sized 2nd obtuse marginal branch and then distally continues as a large 3rd obtuse marginal branch. There is a very eccentric bulky plaque in the midportion of the circumflex artery, across the origin of this medium-sized 2nd obtuse marginal branch. The plaque has a hazy eccentric 80% stenosis. This appears to have been the culprit lesion for the ST elevation and appears to have had some resolution of thrombotic burden, because when these angiograms were taken, the patient's chest pain had already resolved to about a 2/10. This may have been completely occluded when he presented to the ER. There was JALIL-3 flow throughout. LEFT ANTERIOR DESCENDING ARTERY: The LAD is a large vessel, arising from its separate origin. The LAD at its ostium has about 20% stenosis and then the midportion of the LAD has mild to moderate plaquing with diffuse 30% stenosis. The LAD does give rise to 2 diagonal branches, both are small to medium-sized. The LAD wraps around the apex and supplies a significant portion of the distal wall. LEFT VENTRICULAR HEMODYNAMICS: LV systolic pressure was measured at 140 mmHg. End-diastolic pressure was 10-12 mmHg. There was no pullback gradient across the aortic valve. FINAL IMPRESSION: ST-elevation myocardial infarction due to thrombotic disease in the mid circumflex artery of 80%, though may have been 100% at the time of presentation to the ER. This was treated successfully with placement of 1 drug- eluting Xience stent as detailed above. Post dilated to a 3.75 size. A jailed obtuse marginal which was medium-sized had a pinch at the stent site of about 50% to 60%, but had JALIL-3 flow and was left unintervened on. RCA and LAD have no significant angiographic occlusion though the mid LAD does have a 30% diffuse stenosis. Low-normal to normal left ventricular end-diastolic pressure. RECOMMENDATIONS: The patient was given a loading dose of prasugrel at the end of the procedure. The sheath was left in place. It will be pulled manually in the CICU. Integrilin will be stopped in 4 hours. Aggressive risk factor modification and advised smoking cessation and further management per primary cardiology team. ASSESSMENT/PLAN ASSESSMENT/PLAN 1. Malignant HTN 2. Acute on chronic diastolic CHF: SOA better 3. AASHISH on CKD3: Cr at 3 4. CAD: 2015 LCx stent in [facility] 5. HLP 6. Hx of chronic pancreatitis 7. Atypical CP: due to uncontrolled HTN. EKG revealed SR with LVH 8. Tobaccoism 9. DM2: per PCP Recommendations 1. Presently on cardene and will start titrating down, Awaiting renal duplex. Lasix received adn will repeat 2. No ARB due to renal function. ACEi makes him cough. Will restart home hydralazine, norvasc. Change metoprolol to coreg and add imdur. 3. TTE, TSH and lipids. Obtain UA and tox screen 4. Continue ASA and statin 5. Discussed curbing of caffeine ingestion. Low sodium diet 6. Smoking cessation PETRA TELLEZ MD 09/10/192039: CARDIAC CONSULT ASSESSMENT/PLAN ASSESSMENT/PLAN Patient seen and examined. Agree with above nurse practitioner note. Plan for aggressive blood pressure control. Consider outpatient stress testing if needed. Supportive care for now. MARÍA BURNS APRN Sep 10, 2019 15:05 PETRA TELLEZ MD Sep 10, 2019 20:40
--- NOTE | 2019-09-10 16:09 | RAD ---
Examination: RENAL BILAT RENAL DUPLEX CO History: Pulmonary edema, not on KWAN inhibitor, acute renal insufficiency, uncontrolled hypertension Comparison/Correlation: 11/08/2018 CT abdomen and pelvis without contrast Findings: Renal ultrasound exam was performed. Duplex ultrasound imaging was performed. Right kidney measures 9.5 cm x 5.7 cm x 5.6). Left kidney measures 10.3 cm x 5.5 cm 6 x 1 cm. No hydronephrosis or nephrolithiasis. Renal contours and renal echotexture are normal. Right main renal artery possibly has a peak systolic velocity of 214 cm/s with resistive index of 0.9. At the mid right renal artery, peak systolic velocity is 136 cm/s with resistive index of 0.9. Distal right renal artery has peak systolic velocity of 124 cm/s with resistive index of 0.9. Left main renal artery proximally has peak systolic velocity of 161 cm/s with resistive index of 0.9. Mid left renal artery peak systolic velocity 133 cm/s with resistive index of 0.8 is noted. Distal left renal artery peak systolic velocity of 165 cm/s with resistive index of 0.9 is present. Abdominal aortic peak systolic velocity of 98 cm/s is evident. Right main renal artery to the aortic peak systolic velocity ratio 2.2 is present. Left renal artery to abdominal aortic peak systolic velocity ratio of 1.7 is present. Urinary bladder volume is 127.1 cc. Aorta is not well-visualized due to overlying bowel gas. Impression: The main arterial to aortic peak systolic velocity ratios are well within normal limits. No significant hemodynamic stenosis on this basis is identified. No hydronephrosis. Electronically signed by: Enoch Trujillo MD (09/10/2019 4:06 PM) [id number]
--- NOTE | 2019-09-10 16:13 | NUR ---
SS following for discharge planning. SS reviewed pt chart. Pt is from home and is currently on room air. SS will continue to follow for discharge planning.
[2019-09-10] MEDS ORDERED: FUROSEMIDE 40 MG/4 ML VIAL. IVP ONE (16:15)
[2019-09-10] MEDS: INSULIN LISPRO 300 UNITS/3 ML VIAL. SQ SCH (16:30)
[2019-09-10] MEDS: CARVEDILOL 12.5 MG TABLET. PO SCH (17:52)
[2019-09-10] MEDS ORDERED: ONDANSETRON PF 4 MG/2 ML VIAL. IVP PRN (20:15)
[2019-09-10] MEDS ORDERED: INSULIN GLARGINE SYRINGE. SQ SCH (21:00)
[2019-09-10] MEDS ORDERED: ATORVASTATIN CALCIUM 40 MG TABLET. PO SCH (21:00)
[2019-09-10] MEDS: traZODone 100 MG TABLET. PO SCH (21:21)
[2019-09-10] MEDS: ATORVASTATIN CALCIUM 40 MG TABLET. PO SCH (21:21)
--- NOTE | 2019-09-10 22:27 | NUR ---
Patient having multiple bouts of diarrhea and is requesting some imodium. Dr. Valadez called and new orders received. Will monitor.
[2019-09-10] MEDS ORDERED: LOPERAMIDE 2 MG CAPSULE PO ONE (22:30)
[2019-09-11] VITALS (19 sets, daily range): BP systolic 144–233; BP diastolic 64–93
[2019-09-11 05:11] LABS: BASO # 0.1 x10^3/uL (0.0-0.2); BASO % 1 % (0-3); EOS # 0.2 x10^3/uL (0.0-0.7); EOS % 2 % (0-3); LYMPH # 1.9 x10^3/uL (1.0-4.8); LYMPH % 22 % (24-48); MEAN CORPUSCULAR HEMOGLOBIN 27 pg (25-35); MEAN CORPUSCULAR HGB CONC 33 g/dL (31-37); MEAN CORPUSCULAR VOLUME 81 fL (79-100); MONO # 0.5 x10^3/uL (0.0-1.1); MONO % 6 % (0-9); NEUT # 6.1 x10^3/uL (1.8-7.7); NEUT % 70 % (31-73); PLATELET COUNT 369 x10^3/uL (140-400); RED BLOOD COUNT 3.31 x10^6/uL (4.30-5.70); RED CELL DISTRIBUTION WIDTH 17.2 % (11.5-14.5); WHITE BLOOD COUNT 8.7 x10^3/uL (4.0-11.0)
[2019-09-11 05:26] LABS: ALBUMIN 2.1 g/dL (3.4-5.0); ALBUMIN/GLOBULIN RATIO 0.7 (1.0-1.7); CALCIUM 7.6 mg/dL (8.5-10.1); CREATININE 3.2 mg/dL (0.7-1.3); GFR 24.7; POTASSIUM 4.6 mmol/L (3.5-5.1); TOTAL BILIRUBIN 0.3 mg/dL (0.2-1.0); TOTAL PROTEIN 5.3 g/dL (6.4-8.2)
[2019-09-11 05:34] LABS: AMPHETAMINE/METHAMPHETAMINE NEG (NEG); BARBITURATES NEG (NEG); BENZODIAZEPINES NEG (NEG); CANNABINOIDS NEG (NEG); COCAINE NEG (NEG); METHADONE NEG (NEG); OPIATES NEG (NEG); PHENCYCLIDINE NEG (NEG)
--- NOTE | 2019-09-11 06:36 | NUR ---
Patient's SBP 206, hydralazine 10 mg IV given per PRN order. Will monitor.
[2019-09-11] MEDS: hydrALAZINE 20 MG/ML VIAL. IVP PRN (06:39)
[2019-09-11 06:44] LABS: BILIRUBIN,URINE NEGATIVE (NEG); CLARITY,URINE CLEAR; COLOR,URINE YELLOW; NITRITE,URINE NEGATIVE (NEG); PROTEIN,URINE 100 mg/dL (NEG-TRACE); UROBILINOGEN,URINE 0.2 mg/dL (0.2 mg/dL)
[2019-09-11] MEDS: INSULIN LISPRO 300 UNITS/3 ML VIAL. SQ SCH ×3 (07:30→16:30)
[2019-09-11 07:37] LABS: BACTERIA,URINE 0 /HPF (0-FEW); RBC,URINE RARE /HPF (0-2); WBC,URINE RARE /HPF (0-4)
[2019-09-11] MEDS ORDERED: ASPIRIN ENTERIC COATED 81 MG TABLET.DR. PO SCH (08:00)
--- NOTE | 2019-09-11 08:50 | NUR ---
FSBS at 34(0844) rrepeated at 0854 and was 29. Pt denies any symptoms but 2 apple juices given and 1 amp D50. Stat BMP done. Pt denies N/V. BP up, will give po meds now.
[2019-09-11] MEDS ORDERED: DEXTROSE 50% 25 GM / 50ML DISP.SYRIN. IV ONE ×2 (08:53→09:00)
[2019-09-11] MEDS: MONTELUKAST SODIUM 10 MG TABLET. PO SCH (09:28)
[2019-09-11] MEDS: ASPIRIN ENTERIC COATED 81 MG TABLET.DR. PO SCH (09:29)
[2019-09-11] MEDS: ISOSORBIDE MONONITRATE ER 30 MG TAB.ER.24H PO SCH (09:29)
[2019-09-11] MEDS: PANTOPRAZOLE 40 MG TABLET.DR. PO SCH (09:29)
[2019-09-11] MEDS: CYANOCOBALAMIN (VITAMIN B-12) 1,000 MCG TABLET. PO SCH (09:30)
[2019-09-11] MEDS: CARVEDILOL 12.5 MG TABLET. PO SCH ×2 (09:30→17:27)
[2019-09-11] MEDS: LIPASE/PROTEAS/AMYLAS 10/32/42 CAPSULE.DR. PO SCH ×3 (09:31→17:28)
[2019-09-11] MEDS: amLODIPine BESYLATE 10 MG TABLET PO SCH (09:32)
[2019-09-11 09:36] LABS: CALCIUM 8.1 mg/dL (8.5-10.1); CREATININE 3.1 mg/dL (0.7-1.3); GFR 25.6
--- NOTE | 2019-09-11 09:55 | PDOC ---
IM PROGRESS NOTES- Subjective Subjective No complaints of dyspnea or pain. Other systems reviewed and are negative. Objective Vitals/I&O Vital Signs Date Time Temp Pulse Resp B/P (MAP) Pulse Ox O2 Delivery O2 Flow Rate FiO2 09/11/19 09:32 72 172/67 09/11/19 06:00 16 97 Room Air 09/11/19 04:00 97.8 97.8 I & O 09/10/19 09/10/19 09/11/19 15:00 23:00 07:00 Intake Total 762 ml 740 ml 540 ml Output Total 750 ml 153 ml 302 ml Balance 12 ml 587 ml 238 ml Physical Exam Physical Exam General appearance - alert,well appearing, and in no distress and oriented to person, place, and time Mental Status - alert, oriented to person, place, and time, affect appropriate to mood Head - normal Chest - decreased breath sounds at bases Heart - S1 and S2 normal Abdomen - soft, nontender Neurological - alert and oriented Musculoskeletal - no muscular tenderness noted Extremities - no pedal edema Skin - warm and dry Labs Laboratory Tests Test 09/10/19 13:04 09/10/19 17:49 09/10/19 21:24 09/11/19 02:47 Glucose (Fingerstick) 220 mg/dL (70-99) H 162 mg/dL (70-99) H 129 mg/dL (70-99) H 41 mg/dL (70-99) *L Test 09/11/19 03:25 09/11/19 03:30 09/11/19 04:45 09/11/19 08:44 Glucose (Fingerstick) 110 mg/dL (70-99) H 34 mg/dL (70-99) *L Urine Collection Type Unknown Urine Color Yellow Urine Clarity Clear Urine pH 6.0 Urine Specific [place] 1.010 Urine Protein 100 mg/dL (NEG-TRACE) Urine Glucose (UA) Negative mg/dL (NEG) Urine Ketones (Stick) Negative mg/dL (NEG) Urine Blood Negative (NEG) Urine Nitrite Negative (NEG) Urine Bilirubin Negative (NEG) Urine Urobilinogen Dipstick 0.2 mg/dL (0.2 mg/dL) Urine Leukocyte Esterase Negative (NEG) Urine RBC Rare /HPF (0-2) Urine WBC Rare /HPF (0-4) Urine Bacteria 0 /HPF (0-FEW) Urine Opiates Screen Neg (NEG) Urine Methadone Screen Neg (NEG) Urine Barbiturates Neg (NEG) Urine Phencyclidine Screen Neg (NEG) Urine Amphetamine/Methamphetamine Neg (NEG) Urine Benzodiazepines Screen Neg (NEG) Urine Cocaine Screen Neg (NEG) Urine Cannabinoids Screen Neg (NEG) Urine Ethyl Alcohol Neg (NEG) White Blood Count 8.7 x10^3/uL (4.0-11.0) Red Blood Count 3.31 x10^6/uL (4.30-5.70) L Hemoglobin 9.0 g/dL (13.0-17.5) L Hematocrit 27.0 % (39.0-53.0) L Mean Corpuscular Volume 81 fL (79-100) Mean Corpuscular Hemoglobin 27 pg (25-35) Mean Corpuscular Hemoglobin Concent 33 g/dL (31-37) Red Cell Distribution Width 17.2 % (11.5-14.5) H Platelet Count 369 x10^3/uL (140-400) Neutrophils (%) (Auto) 70 % (31-73) Lymphocytes (%) (Auto) 22 % (24-48) L Monocytes (%) (Auto) 6 % (0-9) Eosinophils (%) (Auto) 2 % (0-3) Basophils (%) (Auto) 1 % (0-3) Neutrophils # (Auto) 6.1 x10^3/uL (1.8-7.7) Lymphocytes # (Auto) 1.9 x10^3/uL (1.0-4.8) Monocytes # (Auto) 0.5 x10^3/uL (0.0-1.1) Eosinophils # (Auto) 0.2 x10^3/uL (0.0-0.7) Basophils # (Auto) 0.1 x10^3/uL (0.0-0.2) Sodium Level 133 mmol/L (136-145) L Potassium Level 4.6 mmol/L (3.5-5.1) Chloride Level 104 mmol/L (98-107) Carbon Dioxide Level 20 mmol/L (21-32) L Anion Gap 9 (6-14) Blood Urea Nitrogen 31 mg/dL (8-26) H Creatinine 3.2 mg/dL (0.7-1.3) H Estimated GFR (Cockcroft-Gault) 24.7 BUN/Creatinine Ratio 10 (6-20) Glucose Level 113 mg/dL (70-99) H Calcium Level 7.6 mg/dL (8.5-10.1) L Total Bilirubin 0.3 mg/dL (0.2-1.0) Aspartate Amino Transferase (AST) 16 U/L (15-37) Alanine Aminotransferase (ALT) 23 U/L (16-63) Alkaline Phosphatase 151 U/L (46-116) H Total Protein 5.3 g/dL (6.4-8.2) L Albumin 2.1 g/dL (3.4-5.0) L Albumin/Globulin Ratio 0.7 (1.0-1.7) L Test 09/11/19 08:45 09/11/19 09:10 Glucose (Fingerstick) 29 mg/dL (70-99) *L Sodium Level 136 mmol/L (136-145) Potassium Level 5.0 mmol/L (3.5-5.1) Chloride Level 104 mmol/L (98-107) Carbon Dioxide Level 19 mmol/L (21-32) L Anion Gap 13 (6-14) Blood Urea Nitrogen 30 mg/dL (8-26) H Creatinine 3.1 mg/dL (0.7-1.3) H Estimated GFR (Cockcroft-Gault) 25.6 Glucose Level 219 mg/dL (70-99) H Calcium Level 8.1 mg/dL (8.5-10.1) L Laboratory Tests 09/11/19 04:45 Laboratory Tests 09/11/19 04:45 09/11/19 09:10 Meds Current Medications Medications (Trade) Dose Ordered Sig/Ravinder Route PRN Reason Start Time Stop Time Status Last Admin Dose Admin Aspirin (Ecotrin) 81 mg DAILY PO 09/10/19 11:00 09/11/19 09:29 Cyanocobalamin (Vitamin B-12) 1,000 mcg DAILY PO 09/10/19 11:00 09/11/19 09:30 Metoprolol Succinate (Toprol Xl) 50 mg DAILY PO 09/10/19 11:00 09/10/19 16:14 DC 09/10/19 10:19 Montelukast Sodium (Singulair) 10 mg DAILY PO 09/10/19 11:00 09/11/19 09:28 Trazodone HCl (Desyrel) 100 mg QHS PO 09/10/19 21:00 09/10/19 21:21 Atorvastatin Calcium (Lipitor) 80 mg QHS PO 09/10/19 21:00 09/10/19 21:21 Insulin Glargine (Lantus Syringe) 40 unit QHS SQ 09/10/19 21:00 09/10/19 21:29 Amylase/Lipase/ Protease (Zenpep 10,000) 3 cap TIDWMEALS PO 09/10/19 12:00 09/11/19 09:31 Pantoprazole Sodium (Protonix) 40 mg DAILYAC PO 09/10/19 11:00 09/11/19 09:29 Isosorbide Mononitrate (Imdur) 60 mg DAILY PO 09/11/19 09:00 09/11/19 09:29 Hydralazine HCl (Apresoline) 50 mg TID PO 09/10/19 21:00 09/11/19 09:30 Hydralazine HCl (Apresoline Inj) 10 mg PRN Q4HRS PRN IVP ELEVATED BP, SEE COMMENTS 09/10/19 16:15 09/11/19 06:39 Furosemide (Lasix) 40 mg 1X ONCE IVP 09/10/19 16:15 09/10/19 16:16 DC 09/10/19 16:26 Amlodipine Besylate (Norvasc) 10 mg DAILY PO 09/11/19 09:00 09/11/19 09:32 Carvedilol (Coreg) 12.5 mg BIDWMEALS PO 09/10/19 17:00 09/11/19 09:30 Loperamide HCl (Imodium) 4 mg 1X ONCE PO 09/10/19 22:30 09/10/19 22:31 DC 09/10/19 22:38 Dextrose (Dextrose 50%-Water Syringe) 25 gm 1X ONCE IV 09/11/19 09:00 09/11/19 09:01 DC 09/11/19 09:03 Assessment Assessment 1. Acute pulmonary edema. 2. Dyspnea. 3. Hypertensive crisis. 4. Possible chronic obstructive pulmonary disease. 5. Diabetes mellitus type 2 with neuropathy. 6. Chronic kidney disease stage 4. 7. Coronary artery disease. 8. Chronic pancreatitis. 9. Anemia. 10. History of myocardial infarction. 11. 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 12. 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 13. History of prostate cancer, treated with radiation therapy. PLAN: Consult Dr. Riddle for nephrology evaluation and management, Dr. Gray for pulmonary evaluation and management, Dr. Kaur for cardiology evaluation and management. For details, please refer to the orders. The patient underwent a V/Q scan to check for blood clots. The patient had a dose of Lovenox 100 mg subcutaneously x 1 yesterday. I will put him on heparin 5000 units subcutaneously every 12 hours and await evaluation and treatment from the specialist. Clinically, he is much better. Continue Nipride drip. I have restarted his metoprolol and other medications. The patient will be closely monitored in the Intensive Care Unit. For details, please refer to the orders. Hypertensive crisis- continue hydralazine and amlodipine. Metoprolol has been changed to Coreg and Imdur has been added. The blood Pressure is still extremely high today. Start blood pressure is 190-233 this morning. He just received his medications. Diabetes mellitus not controlled with the hypoglycemia- glucose 34 and 29. Discontinue Lantus. Continue sliding scale insulin. Dyspnea- acute pulmonary edema is improving. Patient also likely has underlying COPD. VQ scan is negative for pulmonary embolism. Acute kidney injury with CKD 3- worse due to hypertensive crisis. Renal sonogram is negative. Plan Plan For more details regarding further plans, please refer to the orders. TRINA ALDANA MD Sep 11, 2019 09:55
--- NOTE | 2019-09-11 10:12 | PDOC ---
MARÍA BURNS METALWORKER 09/11/19 1012: CARDIO Progress Notes Date and Time Date of Service 09/11/2019 Time of Evaluation 0950 Subjective Subjective: No Chest Pain, No shortness of breath, No Palpitations, Other (feels better oivernight) Vitals Vitals Vital Signs Date Time Temp Pulse Resp B/P (MAP) Pulse Ox O2 Delivery O2 Flow Rate FiO2 09/11/19 09:32 72 172/67 09/11/19 06:00 16 97 Room Air 09/11/19 04:00 97.8 97.8 Weight Weight [ ] Input and Output Intake and Output Intake and Output 09/11/19 07:00 Intake Total 2042 ml Output Total 1205 ml Balance 837 ml Intake Oral 1792 ml IV Total 250 ml Output Urine Total 1205 ml # Bowel Movements 7 Laboratory Labs Laboratory Tests Test 09/10/19 13:04 09/10/19 17:49 09/10/19 21:24 09/11/19 02:47 Glucose (Fingerstick) 220 mg/dL (70-99) 162 mg/dL (70-99) 129 mg/dL (70-99) 41 mg/dL (70-99) Test 09/11/19 03:25 09/11/19 03:30 09/11/19 04:45 09/11/19 08:44 Glucose (Fingerstick) 110 mg/dL (70-99) 34 mg/dL (70-99) Urine Collection Type Unknown Urine Color Yellow Urine Clarity Clear Urine pH 6.0 Urine Specific [place] 1.010 Urine Protein 100 mg/dL (NEG-TRACE) Urine Glucose (UA) Negative mg/dL (NEG) Urine Ketones (Stick) Negative mg/dL (NEG) Urine Blood Negative (NEG) Urine Nitrite Negative (NEG) Urine Bilirubin Negative (NEG) Urine Urobilinogen Dipstick 0.2 mg/dL (0.2 mg/dL) Urine Leukocyte Esterase Negative (NEG) Urine RBC Rare /HPF (0-2) Urine WBC Rare /HPF (0-4) Urine Bacteria 0 /HPF (0-FEW) Urine Opiates Screen Neg (NEG) Urine Methadone Screen Neg (NEG) Urine Barbiturates Neg (NEG) Urine Phencyclidine Screen Neg (NEG) Urine Amphetamine/Methamphetamine Neg (NEG) Urine Benzodiazepines Screen Neg (NEG) Urine Cocaine Screen Neg (NEG) Urine Cannabinoids Screen Neg (NEG) Urine Ethyl Alcohol Neg (NEG) White Blood Count 8.7 x10^3/uL (4.0-11.0) Red Blood Count 3.31 x10^6/uL (4.30-5.70) Hemoglobin 9.0 g/dL (13.0-17.5) Hematocrit 27.0 % (39.0-53.0) Mean Corpuscular Volume 81 fL (79-100) Mean Corpuscular Hemoglobin 27 pg (25-35) Mean Corpuscular Hemoglobin Concent 33 g/dL (31-37) Red Cell Distribution Width 17.2 % (11.5-14.5) Platelet Count 369 x10^3/uL (140-400) Neutrophils (%) (Auto) 70 % (31-73) Lymphocytes (%) (Auto) 22 % (24-48) Monocytes (%) (Auto) 6 % (0-9) Eosinophils (%) (Auto) 2 % (0-3) Basophils (%) (Auto) 1 % (0-3) Neutrophils # (Auto) 6.1 x10^3/uL (1.8-7.7) Lymphocytes # (Auto) 1.9 x10^3/uL (1.0-4.8) Monocytes # (Auto) 0.5 x10^3/uL (0.0-1.1) Eosinophils # (Auto) 0.2 x10^3/uL (0.0-0.7) Basophils # (Auto) 0.1 x10^3/uL (0.0-0.2) Sodium Level 133 mmol/L (136-145) Potassium Level 4.6 mmol/L (3.5-5.1) Chloride Level 104 mmol/L (98-107) Carbon Dioxide Level 20 mmol/L (21-32) Anion Gap 9 (6-14) Blood Urea Nitrogen 31 mg/dL (8-26) Creatinine 3.2 mg/dL (0.7-1.3) Estimated GFR (Cockcroft-Gault) 24.7 BUN/Creatinine Ratio 10 (6-20) Glucose Level 113 mg/dL (70-99) Calcium Level 7.6 mg/dL (8.5-10.1) Total Bilirubin 0.3 mg/dL (0.2-1.0) Aspartate Amino Transf (AST/SGOT) 16 U/L (15-37) Alanine Aminotransferase (ALT/SGPT) 23 U/L (16-63) Alkaline Phosphatase 151 U/L (46-116) Total Protein 5.3 g/dL (6.4-8.2) Albumin 2.1 g/dL (3.4-5.0) Albumin/Globulin Ratio 0.7 (1.0-1.7) Test 09/11/19 08:45 09/11/19 09:10 Glucose (Fingerstick) 29 mg/dL (70-99) Sodium Level 136 mmol/L (136-145) Potassium Level 5.0 mmol/L (3.5-5.1) Chloride Level 104 mmol/L (98-107) Carbon Dioxide Level 19 mmol/L (21-32) Anion Gap 13 (6-14) Blood Urea Nitrogen 30 mg/dL (8-26) Creatinine 3.1 mg/dL (0.7-1.3) Estimated GFR (Cockcroft-Gault) 25.6 Glucose Level 219 mg/dL (70-99) Calcium Level 8.1 mg/dL (8.5-10.1) Physical Exam HEENT: Neck Supple W Full Motion Chest: Symmetric LUNGS: Clear to Auscultation Heart: S1S2, RRR (SR) Abdomen: Soft N/T Extremities: No Edema, No Calf Tenderness Neurology: alert, oriented, follow commands Assessment Assessment 1. Malignant HTN: labile episodes 2. Acute on chronic diastolic CHF: compensated 3. Possibly progressed to stage 4 CKD: Cr at 3 likely new baseline from renal disease. No significant JOSELYN 4. CAD: 2015 LCx stent in [facility] 5. HLP 6. Hx of chronic pancreatitis 7. Atypical CP: due to uncontrolled HTN. EKG revealed SR with LVH 8. Tobaccoism 9. DM2 with hypoglycemic reaction: per PCP Recommendations 1. Off cardene. labile this AM due to meds given late. Continue current regimen and will adjust per trend 2. No ARB due to renal function. ACEi makes him cough. TTE 3. Continue ASA and statin 4. Discussed curbing of caffeine ingestion. Low sodium diet 5. Smoking cessation 6. Follow nephrology recommendation 7. Follow up in our office PETRA TELLEZ MD 09/14/19 1322: CARDIO Progress Notes Plan Plan Late entry for 09/11/2019. Patient seen and examined. Agree with above nurse practitioner note. BP better controlled. Supportive care for now. 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 MARÍA BURNS APRN Sep 11, 2019 10:12 PETRA TELLEZ MD Sep 14, 2019 13:22
--- NOTE | 2019-09-11 10:39 | CARD ---
MR#: [id number] Date of Study: 09/11/2019 Ordering Physician: MARÍA BURNS, Referring Physician: MARÍA BURNS, Tech: Julia Hurt APPROVED REPORT EXAM: Two-dimensional and M-mode echocardiogram with Doppler and color Doppler. Other Information Quality : GoodHR: 73bpm INDICATION Dyspnea Hypertension/HCVD Congestive Heart Failure RISK FACTORS Hyperlipidemia Diabetes Smoking 2D DIMENSIONS RVDd2.9 (2.9-3.5cm)Left Atrium(2D)3.8 (1.6-4.0cm) IVSd1.1 (0.7-1.1cm)Aortic Root(2D)3.1 (2.0-3.7cm) LVDd5.2 (3.9-5.9cm)LVOT Diameter2.1 (1.8-2.4cm) PWd1.2 (0.7-1.1cm)LVDs3.2 (2.5-4.0cm) FS (%) 39.6 %SV90.9 ml LVEF(%)69.8 (>50%) Aortic Valve AoV Peak Leland.148.7cm/sAoV VTI30.2cm AO Peak GR.8.8mmHgLVOT VTI 26.41cm AO Mean GR.4mmHg Mitral Valve MV E Vapsdfxe54.5cm/sMV E Peak Gr.5mmHg MV DECEL [id number] A Fjbojdoc54.4cm/s MV E Mean Gr.3mmHgE/A Ratio1.2 TDI Lateral E' P. V7.34cm/sMedial E' P. V7.02cm/s E/Lateral E'13.0E/Medial E'13.6 Tricuspid Valve TR P. [id number]/sRAP [id number] TR Peak Gr.[id number] Pulmonary Vein S1 Jwiubbif62.6cm/sS2 Cuhhflhl25.94cm/s D2 Xmvqvjnk78.9cm/s LEFT VENTRICLE The left ventricle is normal size. There is mild to moderate concentric left ventricular hypertrophy. The left ventricular systolic function is normal and the ejection fraction is within normal range. T he Ejection Fraction is 55-60%. There is normal LV segmental wall motion. Transmitral Doppler flow pa ttern is Grade II-pseudonormal filling dynamics. RIGHT VENTRICLE The right ventricle is normal size. There is normal right ventricular wall thickness. The right ventr icular systolic function is normal. ATRIA The left atrium size is normal. The right atrium size is normal. The interatrial septum is intact wit h no evidence for an atrial septal defect or patent foramen ovale as noted on 2-D or Doppler imaging. AORTIC VALVE The aortic valve is thickened but opens well. Doppler and Color Flow revealed no significant aortic r egurgitation. There is no significant aortic valvular stenosis. MITRAL VALVE The mitral valve is normal in structure and function. There is no evidence of mitral valve prolapse. There is no mitral valve stenosis. Doppler and Color-flow revealed trace mitral regurgitation. TRICUSPID VALVE The tricuspid valve is normal in structure and function. Doppler and Color Flow revealed trace tricus pid regurgitation with an estimated PAP of 34 mmHg. There is no tricuspid valve stenosis. PULMONIC VALVE The pulmonic valve is not well visualized. Doppler and Color Flow revealed no pulmonic valvular regur gitation. There is no pulmonic valvular stenosis. GREAT VESSELS The aortic root is normal in size. The IVC is normal in size and collapses >50% with inspiration. PERICARDIAL EFFUSION There is no evidence of significant pericardial effusion. Critical Notification Critical Value: No <Conclusion> The left ventricular systolic function is normal and the ejection fraction is within normal range. Th e Ejection Fraction is 55-60%. There is normal LV segmental wall motion. Signed by : Nicolas Rome, Electronically Approved : 09/11/2019 10:38:55
--- NOTE | 2019-09-11 10:53 | PDOC ---
SUBJECTIVE ROS No complaints OBJECTIVE Vital Signs Vital Signs Date Time Temp Pulse Resp B/P (MAP) Pulse Ox O2 Delivery O2 Flow Rate FiO2 09/11/19 09:32 72 172/67 09/11/19 06:00 16 97 Room Air 09/11/19 04:00 97.8 97.8 I & 0 Intake and Output 09/11/19 07:00 Intake Total 2042 ml Output Total 1205 ml Balance 837 ml Intake Oral 1792 ml IV Total 250 ml Output Urine Total 1205 ml # Bowel Movements 7 PHYSICAL EXAM Physical Exam GENERAL: NAD HEENT: Unremarkable, OM moist, On RA NECK: Supple. LUNGS: Clear with decreased breath sounds at bases, Non labored CARDIOVASCULAR: S1, S2 regular. ABDOMEN: Soft, nontender. No guarding, no rigidity. Bowel sounds present. EXTREMITIES: No edema. CENTRAL NERVOUS SYSTEM: Alert and oriented, grossly normal SKIN- no rash - No Bob, No SP or CVA tenderness DIAGNOSIS/ASSESSMENT Assessment & Plan AASHISH -- Hypertensive crisis / Progression of CKD UA in october Unremarkable, No e/o GN Ct scan in - Unremarkable Kidneys and bladder Stable renal function , ? may be new baseline , Supportive care, Strict I/O, avoid Nephrotoxins CKD stage 4 - Cr elevated since 2017 1,.5, up to 2.5 in 10/2018 per [facility] records Interval labs unknown to me , Per pt doesnt follow with Neph as OP Acute pulmonary edema- Improved with lasix in the ER Not on KWAN-or ARB Hyperkalemia - Mild, Monitor HTN -Hypertensive crisis Home readings high as well , Renal Doppler 09/10 no e/o JOSELYN , CT scan in 10/2018 unremarkable Cardiology managing DM - Per primary Hx of Prostate cancer AdenoCa - Treated with radiation Chronic Pancreatitis Coronary artery disease. Anemia- chronic, per primary COMMENT/RELEVANT DATA Meds Current Medications Medications (Trade) Dose Ordered Sig/Ravinder Start Time Stop Time Status Last Admin Dose Admin Acetaminophen (Tylenol) 650 mg PRN Q4HRS PRN 09/09/19 19:30 09/10/19 19:29 DC Acetaminophen/ Hydrocodone Bitart (Lortab 7.5/325) 1 tab PRN Q6HRS PRN 09/10/19 10:00 Albuterol/ Ipratropium (Duoneb) 3 ml RTQID 09/09/19 20:00 09/10/19 19:59 DC 09/10/19 15:21 3 ML Amlodipine Besylate (Norvasc) 10 mg DAILY 09/11/19 09:00 09/11/19 09:32 10 MG Amylase/Lipase/ Protease (Zenpep 10,000) 3 cap TIDWMEALS 09/10/19 12:00 09/11/19 09:31 3 CAP Aspirin (Ecotrin) 81 mg DAILYWBKFT 09/11/19 08:00 09/10/19 16:28 DC Atorvastatin Calcium (Lipitor) 80 mg QHS 09/10/19 21:00 09/10/19 16:28 DC Calcium Gluconate (Calcium Gluconate) 1,000 mg 1X ONCE 09/09/19 18:45 09/09/19 18:46 DC 09/09/19 19:52 1,000 MG Carvedilol (Coreg) 12.5 mg BIDWMEALS 09/10/19 17:00 09/11/19 09:30 12.5 MG Cyanocobalamin (Vitamin B-12) 1,000 mcg DAILY 09/10/19 11:00 09/11/19 09:30 1,000 MCG Dextrose (Dextrose 50%-Water Syringe) 25 gm 1X ONCE 09/11/19 09:00 09/11/19 09:01 DC 09/11/19 09:03 25 GM Enoxaparin Sodium (Lovenox 100mg Syringe) 100 mg 1X ONCE 09/09/19 19:00 09/09/19 19:01 DC 09/09/19 19:49 100 MG Furosemide (Lasix) 40 mg 1X ONCE 09/10/19 16:15 09/10/19 16:16 DC 09/10/19 16:26 40 MG Hydralazine HCl (Apresoline Inj) 10 mg PRN Q4HRS PRN 09/10/19 16:15 09/11/19 06:39 10 MG Hydralazine HCl (Apresoline) 50 mg TID 09/10/19 21:00 09/11/19 09:30 50 MG Insulin Glargine (Lantus Syringe) 40 unit QHS 09/10/19 21:00 09/11/19 09:49 DC 09/10/19 21:29 40 UNIT Insulin Human Lispro (HumaLOG) 0-10 UNITS TIDBFRMEAL 09/10/19 16:30 Insulin Human Regular (HumuLIN R VIAL) 10 unit 1X ONCE 09/09/19 18:45 09/09/19 18:46 DC 09/09/19 19:54 10 UNIT Isosorbide Mononitrate (Imdur) 60 mg DAILY 09/11/19 09:00 09/11/19 09:29 60 MG Labetalol HCl (Normodyne Iv Push) 20 mg PRN Q2HR PRN 09/10/19 16:15 Loperamide HCl (Imodium) 4 mg 1X ONCE 09/10/19 22:30 09/10/19 22:31 DC 09/10/19 22:38 4 MG Metoprolol Succinate (Toprol Xl) 50 mg DAILY 09/10/19 11:00 09/10/19 16:14 DC 09/10/19 10:19 50 MG Montelukast Sodium (Singulair) 10 mg DAILY 09/10/19 11:00 09/11/19 09:28 10 MG Nicardipine HCl 50 mg/Sodium Chloride 250 ml @ 25 mls/hr CONT PRN 09/09/19 19:00 09/10/19 16:14 DC 09/09/19 21:56 25 MLS/HR Ondansetron HCl (Zofran) 4 mg PRN Q6HRS PRN 09/10/19 20:15 Pantoprazole Sodium (Protonix) 40 mg DAILYAC 09/10/19 11:00 09/11/19 09:29 40 MG Sodium Bicarbonate (Sodium Bicarb Adult 8.4% Syr) 50 meq 1X ONCE 09/09/19 18:45 09/09/19 18:46 DC 09/09/19 19:52 50 MEQ Sodium Chloride 1,000 ml @ 1,000 mls/hr 1X ONCE 09/09/19 19:30 09/09/19 20:29 UNV Trazodone HCl (Desyrel) 100 mg QHS 09/10/19 21:00 09/10/19 21:21 100 MG Lab Laboratory Tests Test 09/10/19 13:04 09/10/19 17:49 09/10/19 21:24 09/11/19 02:47 Glucose (Fingerstick) 220 mg/dL (70-99) 162 mg/dL (70-99) 129 mg/dL (70-99) 41 mg/dL (70-99) Test 09/11/19 03:25 09/11/19 03:30 09/11/19 04:45 09/11/19 08:44 Glucose (Fingerstick) 110 mg/dL (70-99) 34 mg/dL (70-99) Urine Collection Type Unknown Urine Color Yellow Urine Clarity Clear Urine pH 6.0 Urine Specific [place] 1.010 Urine Protein 100 mg/dL (NEG-TRACE) Urine Glucose (UA) Negative mg/dL (NEG) Urine Ketones (Stick) Negative mg/dL (NEG) Urine Blood Negative (NEG) Urine Nitrite Negative (NEG) Urine Bilirubin Negative (NEG) Urine Urobilinogen Dipstick 0.2 mg/dL (0.2 mg/dL) Urine Leukocyte Esterase Negative (NEG) Urine RBC Rare /HPF (0-2) Urine WBC Rare /HPF (0-4) Urine Bacteria 0 /HPF (0-FEW) Urine Opiates Screen Neg (NEG) Urine Methadone Screen Neg (NEG) Urine Barbiturates Neg (NEG) Urine Phencyclidine Screen Neg (NEG) Urine Amphetamine/Methamphetamine Neg (NEG) Urine Benzodiazepines Screen Neg (NEG) Urine Cocaine Screen Neg (NEG) Urine Cannabinoids Screen Neg (NEG) Urine Ethyl Alcohol Neg (NEG) White Blood Count 8.7 x10^3/uL (4.0-11.0) Red Blood Count 3.31 x10^6/uL (4.30-5.70) Hemoglobin 9.0 g/dL (13.0-17.5) Hematocrit 27.0 % (39.0-53.0) Mean Corpuscular Volume 81 fL (79-100) Mean Corpuscular Hemoglobin 27 pg (25-35) Mean Corpuscular Hemoglobin Concent 33 g/dL (31-37) Red Cell Distribution Width 17.2 % (11.5-14.5) Platelet Count 369 x10^3/uL (140-400) Neutrophils (%) (Auto) 70 % (31-73) Lymphocytes (%) (Auto) 22 % (24-48) Monocytes (%) (Auto) 6 % (0-9) Eosinophils (%) (Auto) 2 % (0-3) Basophils (%) (Auto) 1 % (0-3) Neutrophils # (Auto) 6.1 x10^3/uL (1.8-7.7) Lymphocytes # (Auto) 1.9 x10^3/uL (1.0-4.8) Monocytes # (Auto) 0.5 x10^3/uL (0.0-1.1) Eosinophils # (Auto) 0.2 x10^3/uL (0.0-0.7) Basophils # (Auto) 0.1 x10^3/uL (0.0-0.2) Sodium Level 133 mmol/L (136-145) Potassium Level 4.6 mmol/L (3.5-5.1) Chloride Level 104 mmol/L (98-107) Carbon Dioxide Level 20 mmol/L (21-32) Anion Gap 9 (6-14) Blood Urea Nitrogen 31 mg/dL (8-26) Creatinine 3.2 mg/dL (0.7-1.3) Estimated GFR (Cockcroft-Gault) 24.7 BUN/Creatinine Ratio 10 (6-20) Glucose Level 113 mg/dL (70-99) Calcium Level 7.6 mg/dL (8.5-10.1) Total Bilirubin 0.3 mg/dL (0.2-1.0) Aspartate Amino Transf (AST/SGOT) 16 U/L (15-37) Alanine Aminotransferase (ALT/SGPT) 23 U/L (16-63) Alkaline Phosphatase 151 U/L (46-116) Total Protein 5.3 g/dL (6.4-8.2) Albumin 2.1 g/dL (3.4-5.0) Albumin/Globulin Ratio 0.7 (1.0-1.7) Test 09/11/19 08:45 09/11/19 09:10 Glucose (Fingerstick) 29 mg/dL (70-99) Sodium Level 136 mmol/L (136-145) Potassium Level 5.0 mmol/L (3.5-5.1) Chloride Level 104 mmol/L (98-107) Carbon Dioxide Level 19 mmol/L (21-32) Anion Gap 13 (6-14) Blood Urea Nitrogen 30 mg/dL (8-26) Creatinine 3.1 mg/dL (0.7-1.3) Estimated GFR (Cockcroft-Gault) 25.6 Glucose Level 219 mg/dL (70-99) Calcium Level 8.1 mg/dL (8.5-10.1) Results All relevant outside records, renal labs, imaging studies, telemetry/EKG's were reviewed. CARLO CHAUHAN MD Sep 11, 2019 10:53
--- NOTE | 2019-09-11 11:33 | PDOC ---
PULMONARY PROGRESS NOTES Subjective no soa, on RA Vitals Vital Signs Date Time Temp Pulse Resp B/P (MAP) Pulse Ox O2 Delivery O2 Flow Rate FiO2 09/11/19 09:32 72 172/67 09/11/19 08:00 Room Air 09/11/19 06:00 16 97 09/11/19 04:00 97.8 97.8 General: Alert, No acute distress Lungs: Clear Cardiovascular: S1 Abdomen: Soft Neuro Exam: Alert Extremities: No Edema Skin: Warm Labs Laboratory Tests Test 09/09/19 18:09 09/09/19 18:20 09/10/19 04:15 09/10/19 08:32 D-Dimer (Marcella) 1.10 ug/mlFEU (0.00-0.50) Sodium Level 133 mmol/L (136-145) 132 mmol/L (136-145) Potassium Level 5.3 mmol/L (3.5-5.1) 5.2 mmol/L (3.5-5.1) Chloride Level 104 mmol/L (98-107) 100 mmol/L (98-107) Carbon Dioxide Level 18 mmol/L (21-32) 19 mmol/L (21-32) Anion Gap 11 (6-14) 13 (6-14) Blood Urea Nitrogen 24 mg/dL (8-26) 25 mg/dL (8-26) Creatinine 3.0 mg/dL (0.7-1.3) 3.0 mg/dL (0.7-1.3) Estimated GFR (Cockcroft-Gault) 26.6 26.6 Glucose Level 194 mg/dL (70-99) 157 mg/dL (70-99) Calcium Level 8.0 mg/dL (8.5-10.1) 8.3 mg/dL (8.5-10.1) Total Bilirubin 0.2 mg/dL (0.2-1.0) 0.3 mg/dL (0.2-1.0) Direct Bilirubin 0.1 mg/dL (0.0-0.2) Aspartate Amino Transf (AST/SGOT) 19 U/L (15-37) 26 U/L (15-37) Alanine Aminotransferase (ALT/SGPT) 21 U/L (16-63) 27 U/L (16-63) Alkaline Phosphatase 193 U/L (46-116) 204 U/L (46-116) Troponin I Quantitative < 0.017 ng/mL (0.000-0.055) 0.022 ng/mL (0.000-0.055) OV-Nnp-S-Type Natriuretic Peptide 7968 pg/mL (0-124) Total Protein 5.5 g/dL (6.4-8.2) 5.6 g/dL (6.4-8.2) Albumin 2.6 g/dL (3.4-5.0) 2.6 g/dL (3.4-5.0) Lipase 50 U/L (73-393) White Blood Count 9.4 x10^3/uL (4.0-11.0) 10.4 x10^3/uL (4.0-11.0) Red Blood Count 3.36 x10^6/uL (4.30-5.70) 4.09 x10^6/uL (4.30-5.70) Hemoglobin 9.0 g/dL (13.0-17.5) 10.9 g/dL (13.0-17.5) Hematocrit 27.3 % (39.0-53.0) 33.5 % (39.0-53.0) Mean Corpuscular Volume 81 fL (79-100) 82 fL (79-100) Mean Corpuscular Hemoglobin 27 pg (25-35) 27 pg (25-35) Mean Corpuscular Hemoglobin Concent 33 g/dL (31-37) 33 g/dL (31-37) Red Cell Distribution Width 17.2 % (11.5-14.5) 17.3 % (11.5-14.5) Platelet Count 353 x10^3/uL (140-400) 435 x10^3/uL (140-400) Neutrophils (%) (Auto) 69 % (31-73) 78 % (31-73) Lymphocytes (%) (Auto) 21 % (24-48) 18 % (24-48) Monocytes (%) (Auto) 6 % (0-9) 3 % (0-9) Eosinophils (%) (Auto) 2 % (0-3) 0 % (0-3) Basophils (%) (Auto) 2 % (0-3) 1 % (0-3) Neutrophils # (Auto) 6.5 x10^3/uL (1.8-7.7) 8.2 x10^3/uL (1.8-7.7) Lymphocytes # (Auto) 2.0 x10^3/uL (1.0-4.8) 1.9 x10^3/uL (1.0-4.8) Monocytes # (Auto) 0.6 x10^3/uL (0.0-1.1) 0.3 x10^3/uL (0.0-1.1) Eosinophils # (Auto) 0.2 x10^3/uL (0.0-0.7) 0.0 x10^3/uL (0.0-0.7) Basophils # (Auto) 0.1 x10^3/uL (0.0-0.2) 0.1 x10^3/uL (0.0-0.2) BUN/Creatinine Ratio 8 (6-20) Albumin/Globulin Ratio 0.9 (1.0-1.7) Triglycerides Level 88 mg/dL (0-150) Cholesterol Level 184 mg/dL (0-200) LDL Cholesterol, Calculated 105 mg/dL (0-100) VLDL Cholesterol, Calculated 18 mg/dL (0-40) Non-HDL Cholesterol Calculated 123 mg/dL (0-129) HDL Cholesterol 61 mg/dL (40-60) Cholesterol/HDL Ratio 3.0 Thyroid Stimulating Hormone (TSH) 0.910 uIU/mL (0.358-3.74) Glucose (Fingerstick) 161 mg/dL (70-99) Test 09/10/19 13:04 09/10/19 17:49 09/10/19 21:24 09/11/19 02:47 Glucose (Fingerstick) 220 mg/dL (70-99) 162 mg/dL (70-99) 129 mg/dL (70-99) 41 mg/dL (70-99) Test 09/11/19 03:25 09/11/19 03:30 09/11/19 04:45 09/11/19 08:44 Glucose (Fingerstick) 110 mg/dL (70-99) 34 mg/dL (70-99) Urine Collection Type Unknown Urine Color Yellow Urine Clarity Clear Urine pH 6.0 Urine Specific [place] 1.010 Urine Protein 100 mg/dL (NEG-TRACE) Urine Glucose (UA) Negative mg/dL (NEG) Urine Ketones (Stick) Negative mg/dL (NEG) Urine Blood Negative (NEG) Urine Nitrite Negative (NEG) Urine Bilirubin Negative (NEG) Urine Urobilinogen Dipstick 0.2 mg/dL (0.2 mg/dL) Urine Leukocyte Esterase Negative (NEG) Urine RBC Rare /HPF (0-2) Urine WBC Rare /HPF (0-4) Urine Bacteria 0 /HPF (0-FEW) Urine Opiates Screen Neg (NEG) Urine Methadone Screen Neg (NEG) Urine Barbiturates Neg (NEG) Urine Phencyclidine Screen Neg (NEG) Urine Amphetamine/Methamphetamine Neg (NEG) Urine Benzodiazepines Screen Neg (NEG) Urine Cocaine Screen Neg (NEG) Urine Cannabinoids Screen Neg (NEG) Urine Ethyl Alcohol Neg (NEG) White Blood Count 8.7 x10^3/uL (4.0-11.0) Red Blood Count 3.31 x10^6/uL (4.30-5.70) Hemoglobin 9.0 g/dL (13.0-17.5) Hematocrit 27.0 % (39.0-53.0) Mean Corpuscular Volume 81 fL (79-100) Mean Corpuscular Hemoglobin 27 pg (25-35) Mean Corpuscular Hemoglobin Concent 33 g/dL (31-37) Red Cell Distribution Width 17.2 % (11.5-14.5) Platelet Count 369 x10^3/uL (140-400) Neutrophils (%) (Auto) 70 % (31-73) Lymphocytes (%) (Auto) 22 % (24-48) Monocytes (%) (Auto) 6 % (0-9) Eosinophils (%) (Auto) 2 % (0-3) Basophils (%) (Auto) 1 % (0-3) Neutrophils # (Auto) 6.1 x10^3/uL (1.8-7.7) Lymphocytes # (Auto) 1.9 x10^3/uL (1.0-4.8) Monocytes # (Auto) 0.5 x10^3/uL (0.0-1.1) Eosinophils # (Auto) 0.2 x10^3/uL (0.0-0.7) Basophils # (Auto) 0.1 x10^3/uL (0.0-0.2) Sodium Level 133 mmol/L (136-145) Potassium Level 4.6 mmol/L (3.5-5.1) Chloride Level 104 mmol/L (98-107) Carbon Dioxide Level 20 mmol/L (21-32) Anion Gap 9 (6-14) Blood Urea Nitrogen 31 mg/dL (8-26) Creatinine 3.2 mg/dL (0.7-1.3) Estimated GFR (Cockcroft-Gault) 24.7 BUN/Creatinine Ratio 10 (6-20) Glucose Level 113 mg/dL (70-99) Calcium Level 7.6 mg/dL (8.5-10.1) Total Bilirubin 0.3 mg/dL (0.2-1.0) Aspartate Amino Transf (AST/SGOT) 16 U/L (15-37) Alanine Aminotransferase (ALT/SGPT) 23 U/L (16-63) Alkaline Phosphatase 151 U/L (46-116) Total Protein 5.3 g/dL (6.4-8.2) Albumin 2.1 g/dL (3.4-5.0) Albumin/Globulin Ratio 0.7 (1.0-1.7) Test 09/11/19 08:45 09/11/19 09:10 Glucose (Fingerstick) 29 mg/dL (70-99) Sodium Level 136 mmol/L (136-145) Potassium Level 5.0 mmol/L (3.5-5.1) Chloride Level 104 mmol/L (98-107) Carbon Dioxide Level 19 mmol/L (21-32) Anion Gap 13 (6-14) Blood Urea Nitrogen 30 mg/dL (8-26) Creatinine 3.1 mg/dL (0.7-1.3) Estimated GFR (Cockcroft-Gault) 25.6 Glucose Level 219 mg/dL (70-99) Calcium Level 8.1 mg/dL (8.5-10.1) Laboratory Tests Test 09/10/19 13:04 09/10/19 17:49 09/10/19 21:24 09/11/19 02:47 Glucose (Fingerstick) 220 mg/dL (70-99) 162 mg/dL (70-99) 129 mg/dL (70-99) 41 mg/dL (70-99) Test 09/11/19 03:25 09/11/19 03:30 09/11/19 04:45 09/11/19 08:44 Glucose (Fingerstick) 110 mg/dL (70-99) 34 mg/dL (70-99) Urine Collection Type Unknown Urine Color Yellow Urine Clarity Clear Urine pH 6.0 Urine Specific [place] 1.010 Urine Protein 100 mg/dL (NEG-TRACE) Urine Glucose (UA) Negative mg/dL (NEG) Urine Ketones (Stick) Negative mg/dL (NEG) Urine Blood Negative (NEG) Urine Nitrite Negative (NEG) Urine Bilirubin Negative (NEG) Urine Urobilinogen Dipstick 0.2 mg/dL (0.2 mg/dL) Urine Leukocyte Esterase Negative (NEG) Urine RBC Rare /HPF (0-2) Urine WBC Rare /HPF (0-4) Urine Bacteria 0 /HPF (0-FEW) Urine Opiates Screen Neg (NEG) Urine Methadone Screen Neg (NEG) Urine Barbiturates Neg (NEG) Urine Phencyclidine Screen Neg (NEG) Urine Amphetamine/Methamphetamine Neg (NEG) Urine Benzodiazepines Screen Neg (NEG) Urine Cocaine Screen Neg (NEG) Urine Cannabinoids Screen Neg (NEG) Urine Ethyl Alcohol Neg (NEG) White Blood Count 8.7 x10^3/uL (4.0-11.0) Red Blood Count 3.31 x10^6/uL (4.30-5.70) Hemoglobin 9.0 g/dL (13.0-17.5) Hematocrit 27.0 % (39.0-53.0) Mean Corpuscular Volume 81 fL (79-100) Mean Corpuscular Hemoglobin 27 pg (25-35) Mean Corpuscular Hemoglobin Concent 33 g/dL (31-37) Red Cell Distribution Width 17.2 % (11.5-14.5) Platelet Count 369 x10^3/uL (140-400) Neutrophils (%) (Auto) 70 % (31-73) Lymphocytes (%) (Auto) 22 % (24-48) Monocytes (%) (Auto) 6 % (0-9) Eosinophils (%) (Auto) 2 % (0-3) Basophils (%) (Auto) 1 % (0-3) Neutrophils # (Auto) 6.1 x10^3/uL (1.8-7.7) Lymphocytes # (Auto) 1.9 x10^3/uL (1.0-4.8) Monocytes # (Auto) 0.5 x10^3/uL (0.0-1.1) Eosinophils # (Auto) 0.2 x10^3/uL (0.0-0.7) Basophils # (Auto) 0.1 x10^3/uL (0.0-0.2) Sodium Level 133 mmol/L (136-145) Potassium Level 4.6 mmol/L (3.5-5.1) Chloride Level 104 mmol/L (98-107) Carbon Dioxide Level 20 mmol/L (21-32) Anion Gap 9 (6-14) Blood Urea Nitrogen 31 mg/dL (8-26) Creatinine 3.2 mg/dL (0.7-1.3) Estimated GFR (Cockcroft-Gault) 24.7 BUN/Creatinine Ratio 10 (6-20) Glucose Level 113 mg/dL (70-99) Calcium Level 7.6 mg/dL (8.5-10.1) Total Bilirubin 0.3 mg/dL (0.2-1.0) Aspartate Amino Transf (AST/SGOT) 16 U/L (15-37) Alanine Aminotransferase (ALT/SGPT) 23 U/L (16-63) Alkaline Phosphatase 151 U/L (46-116) Total Protein 5.3 g/dL (6.4-8.2) Albumin 2.1 g/dL (3.4-5.0) Albumin/Globulin Ratio 0.7 (1.0-1.7) Test 09/11/19 08:45 09/11/19 09:10 Glucose (Fingerstick) 29 mg/dL (70-99) Sodium Level 136 mmol/L (136-145) Potassium Level 5.0 mmol/L (3.5-5.1) Chloride Level 104 mmol/L (98-107) Carbon Dioxide Level 19 mmol/L (21-32) Anion Gap 13 (6-14) Blood Urea Nitrogen 30 mg/dL (8-26) Creatinine 3.1 mg/dL (0.7-1.3) Estimated GFR (Cockcroft-Gault) 25.6 Glucose Level 219 mg/dL (70-99) Calcium Level 8.1 mg/dL (8.5-10.1) Medications Active Scripts Medications Dose Route/Sig Max Daily Dose Days Date Category [place] 5-325 Tablet (Acetaminophen/Hydrocodone Bitart) 1 Each Tablet 1 Tab PO Q6HRS 11/11/18 Rx Ondansetron Odt (Ondansetron) 4 Mg Tab.rapdis 1 Tab PO PRN Q6-8HRS 11/11/18 Rx Hydrocodone-Apap 7.5-325 (Hydrocodone Bit/Acetaminophen) 1 Each Tablet 1 Tab PO PRN Q6HRS PRN 08/30/17 Rx Vitamin B-12 (Cyanocobalamin (Vitamin B-12)) 1,000 Mcg Tablet 1 Tab PO DAILY 08/26/17 Reported Aspir 81 (Aspirin) 81 Mg Tablet. 1 Tab PO DAILY 08/26/17 Reported Trazodone Hcl 100 Mg Tablet 1 Tab PO QHS 08/26/17 Reported Montelukast Sodium Tablet (Montelukast Sodium) 10 Mg Tablet 1 Tab PO DAILY 08/26/17 Reported Metoprolol Succinate ( Xl ) (Metoprolol Succinate) 25 Mg Tab.er.24h 50 Mg PO DAILY 08/26/17 Reported Atorvastatin Calcium 80 Mg Tablet 1 Tab PO DAILY 08/26/17 Reported Humulin R (Insulin Regular, Human) 100 Unit/1 Ml Vial 100 Unit IJ SLIDING SCALE BID 06/24/15 Reported Lantus Solostar (Insulin Glargine,Hum.rec.anlog) 100 Unit/1 Ml Insuln.pen 40 Unit SQ QHS 11/04/14 Reported Zenpep 15,000 Units Capsule (Lipase/Protease/Amylase) 1 Each Capsule. 1 Each PO 2 TABS TID DAILY 04/22/14 Reported Prilosec (Omeprazole) 40 Mg Capsule. 40 Mg PO DAILY 04/22/14 Reported Impression . 1. Dyspnea secondary to acute interstitial edema, triggered by hypertensive crisis. 2. Chronic kidney disease. 3. Hypertension, under suboptimal control, presenting as hypertensive crisis. 4. Underlying 38 years of tobaccoism, suspect underlying chronic obstructive pulmonary disease. 5. Abnormal chest x-ray consistent with congestive heart failure. Plan . 1. From a pulmonary standpoint, he is clinically better after receiving Lasix. He is not on oxygen. 2. Optimization of blood pressure per Cardiology. 3. Follow up chest x-ray 4. No evidence of pulmonary embolism by V/Q scan. 5. Follow renal function. Nephrology recommendations. 6. Discussed with RN. FABY ROSE MD Sep 11, 2019 11:33
[2019-09-11] MEDS: LABETALOL 20 MG/4 ML DISP.SYRIN. IVP PRN (13:31)
--- NOTE | 2019-09-11 14:46 | RAD ---
PORTABLE CHEST 1V History: CHF Comparison: September 09, 2019 Findings: Decreased interstitial prominence. No pleural effusion. Unchanged heart size. No pneumothorax. Surgical clips right upper quadrant. Impression: 1. Decreased pulmonary edema. Electronically signed by: Omid Arnold DO (09/11/2019 2:42 PM) [facility] [id number]
[2019-09-11] MEDS: DOXAZOSIN MESYLATE 4 MG TABLET. PO SCH (17:28)
--- NOTE | 2019-09-11 17:54 | NUR ---
uneventful day. Cardura added and Hydralazine changed. BP improving. Pt changed to CVC status. Up in chair most of day
[2019-09-11] MEDS: ATORVASTATIN CALCIUM 40 MG TABLET. PO SCH (21:13)
[2019-09-11] MEDS: traZODone 100 MG TABLET. PO SCH (21:13)
[2019-09-12] VITALS (9 sets, daily range): BP systolic 130–189; BP diastolic 53–76
[2019-09-12] MEDS: LABETALOL 20 MG/4 ML DISP.SYRIN. IVP PRN (04:44)
[2019-09-12] MEDS: hydrALAZINE 20 MG/ML VIAL. IVP PRN (06:26)
[2019-09-12] MEDS: INSULIN LISPRO 300 UNITS/3 ML VIAL. SQ SCH ×3 (07:30→17:10)
[2019-09-12] MEDS: PANTOPRAZOLE 40 MG TABLET.DR. PO SCH (07:34)
[2019-09-12] MEDS: CARVEDILOL 12.5 MG TABLET. PO SCH ×2 (07:35→17:05)
[2019-09-12 08:15] LABS: CALCIUM 7.9 mg/dL (8.5-10.1); CREATININE 3.5 mg/dL (0.7-1.3); GFR 22.3
[2019-09-12] MEDS: LIPASE/PROTEAS/AMYLAS 10/32/42 CAPSULE.DR. PO SCH ×3 (08:15→17:05)
[2019-09-12 08:40] LABS: BASO # 0.1 x10^3/uL (0.0-0.2); BASO % 1 % (0-3); EOS # 0.2 x10^3/uL (0.0-0.7); EOS % 3 % (0-3); HEMATOCRIT 26.7 % (39.0-53.0); HEMOGLOBIN 8.8 g/dL (13.0-17.5); LYMPH # 2.1 x10^3/uL (1.0-4.8); LYMPH % 23 % (24-48); MEAN CORPUSCULAR HEMOGLOBIN 27 pg (25-35); MEAN CORPUSCULAR HGB CONC 33 g/dL (31-37); MEAN CORPUSCULAR VOLUME 82 fL (79-100); MONO # 0.6 x10^3/uL (0.0-1.1); MONO % 7 % (0-9); NEUT # 5.9 x10^3/uL (1.8-7.7); NEUT % 66 % (31-73); PLATELET COUNT 365 x10^3/uL (140-400); RED BLOOD COUNT 3.26 x10^6/uL (4.30-5.70); RED CELL DISTRIBUTION WIDTH 17.7 % (11.5-14.5); WHITE BLOOD COUNT 8.9 x10^3/uL (4.0-11.0)
[2019-09-12] MEDS: CYANOCOBALAMIN (VITAMIN B-12) 1,000 MCG TABLET. PO SCH (09:39)
[2019-09-12] MEDS: DOXAZOSIN MESYLATE 4 MG TABLET. PO SCH (09:39)
[2019-09-12] MEDS: MONTELUKAST SODIUM 10 MG TABLET. PO SCH (09:39)
[2019-09-12] MEDS: ASPIRIN ENTERIC COATED 81 MG TABLET.DR. PO SCH (09:39)
[2019-09-12] MEDS: amLODIPine BESYLATE 10 MG TABLET PO SCH (09:40)
[2019-09-12] MEDS: ISOSORBIDE MONONITRATE ER 30 MG TAB.ER.24H PO SCH (09:41)
--- NOTE | 2019-09-12 10:49 | PDOC ---
PULMONARY PROGRESS NOTES Subjective No SOA and No increased cough Vitals Vital Signs Date Time Temp Pulse Resp B/P (MAP) Pulse Ox O2 Delivery O2 Flow Rate FiO2 09/12/19 09:41 72 170/68 09/12/19 08:00 97.8 20 97 Room Air 97.8 ROS: No Nausea, No Chest Pain, No Abdominal Pain, No Increase Cough General: Alert, No acute distress Lungs: Clear Cardiovascular: S1 Abdomen: Soft Neuro Exam: Alert Extremities: No Edema Skin: Warm Labs Laboratory Tests Test 09/10/19 13:04 09/10/19 17:49 09/10/19 21:24 09/11/19 02:47 Glucose (Fingerstick) 220 mg/dL (70-99) 162 mg/dL (70-99) 129 mg/dL (70-99) 41 mg/dL (70-99) Test 09/11/19 03:25 09/11/19 03:30 09/11/19 04:45 09/11/19 08:44 Glucose (Fingerstick) 110 mg/dL (70-99) 34 mg/dL (70-99) Urine Collection Type Unknown Urine Color Yellow Urine Clarity Clear Urine pH 6.0 Urine Specific [place] 1.010 Urine Protein 100 mg/dL (NEG-TRACE) Urine Glucose (UA) Negative mg/dL (NEG) Urine Ketones (Stick) Negative mg/dL (NEG) Urine Blood Negative (NEG) Urine Nitrite Negative (NEG) Urine Bilirubin Negative (NEG) Urine Urobilinogen Dipstick 0.2 mg/dL (0.2 mg/dL) Urine Leukocyte Esterase Negative (NEG) Urine RBC Rare /HPF (0-2) Urine WBC Rare /HPF (0-4) Urine Bacteria 0 /HPF (0-FEW) Urine Opiates Screen Neg (NEG) Urine Methadone Screen Neg (NEG) Urine Barbiturates Neg (NEG) Urine Phencyclidine Screen Neg (NEG) Urine Amphetamine/Methamphetamine Neg (NEG) Urine Benzodiazepines Screen Neg (NEG) Urine Cocaine Screen Neg (NEG) Urine Cannabinoids Screen Neg (NEG) Urine Ethyl Alcohol Neg (NEG) White Blood Count 8.7 x10^3/uL (4.0-11.0) Red Blood Count 3.31 x10^6/uL (4.30-5.70) Hemoglobin 9.0 g/dL (13.0-17.5) Hematocrit 27.0 % (39.0-53.0) Mean Corpuscular Volume 81 fL (79-100) Mean Corpuscular Hemoglobin 27 pg (25-35) Mean Corpuscular Hemoglobin Concent 33 g/dL (31-37) Red Cell Distribution Width 17.2 % (11.5-14.5) Platelet Count 369 x10^3/uL (140-400) Neutrophils (%) (Auto) 70 % (31-73) Lymphocytes (%) (Auto) 22 % (24-48) Monocytes (%) (Auto) 6 % (0-9) Eosinophils (%) (Auto) 2 % (0-3) Basophils (%) (Auto) 1 % (0-3) Neutrophils # (Auto) 6.1 x10^3/uL (1.8-7.7) Lymphocytes # (Auto) 1.9 x10^3/uL (1.0-4.8) Monocytes # (Auto) 0.5 x10^3/uL (0.0-1.1) Eosinophils # (Auto) 0.2 x10^3/uL (0.0-0.7) Basophils # (Auto) 0.1 x10^3/uL (0.0-0.2) Sodium Level 133 mmol/L (136-145) Potassium Level 4.6 mmol/L (3.5-5.1) Chloride Level 104 mmol/L (98-107) Carbon Dioxide Level 20 mmol/L (21-32) Anion Gap 9 (6-14) Blood Urea Nitrogen 31 mg/dL (8-26) Creatinine 3.2 mg/dL (0.7-1.3) Estimated GFR (Cockcroft-Gault) 24.7 BUN/Creatinine Ratio 10 (6-20) Glucose Level 113 mg/dL (70-99) Calcium Level 7.6 mg/dL (8.5-10.1) Total Bilirubin 0.3 mg/dL (0.2-1.0) Aspartate Amino Transf (AST/SGOT) 16 U/L (15-37) Alanine Aminotransferase (ALT/SGPT) 23 U/L (16-63) Alkaline Phosphatase 151 U/L (46-116) Total Protein 5.3 g/dL (6.4-8.2) Albumin 2.1 g/dL (3.4-5.0) Albumin/Globulin Ratio 0.7 (1.0-1.7) Test 09/11/19 08:45 09/11/19 09:10 09/11/19 17:25 09/11/19 21:19 Glucose (Fingerstick) 29 mg/dL (70-99) 106 mg/dL (70-99) 130 mg/dL (70-99) Sodium Level 136 mmol/L (136-145) Potassium Level 5.0 mmol/L (3.5-5.1) Chloride Level 104 mmol/L (98-107) Carbon Dioxide Level 19 mmol/L (21-32) Anion Gap 13 (6-14) Blood Urea Nitrogen 30 mg/dL (8-26) Creatinine 3.1 mg/dL (0.7-1.3) Estimated GFR (Cockcroft-Gault) 25.6 Glucose Level 219 mg/dL (70-99) Calcium Level 8.1 mg/dL (8.5-10.1) Test 09/12/19 07:36 09/12/19 07:45 Glucose (Fingerstick) 106 mg/dL (70-99) White Blood Count 8.9 x10^3/uL (4.0-11.0) Red Blood Count 3.26 x10^6/uL (4.30-5.70) Hemoglobin 8.8 g/dL (13.0-17.5) Hematocrit 26.7 % (39.0-53.0) Mean Corpuscular Volume 82 fL (79-100) Mean Corpuscular Hemoglobin 27 pg (25-35) Mean Corpuscular Hemoglobin Concent 33 g/dL (31-37) Red Cell Distribution Width 17.7 % (11.5-14.5) Platelet Count 365 x10^3/uL (140-400) Neutrophils (%) (Auto) 66 % (31-73) Lymphocytes (%) (Auto) 23 % (24-48) Monocytes (%) (Auto) 7 % (0-9) Eosinophils (%) (Auto) 3 % (0-3) Basophils (%) (Auto) 1 % (0-3) Neutrophils # (Auto) 5.9 x10^3/uL (1.8-7.7) Lymphocytes # (Auto) 2.1 x10^3/uL (1.0-4.8) Monocytes # (Auto) 0.6 x10^3/uL (0.0-1.1) Eosinophils # (Auto) 0.2 x10^3/uL (0.0-0.7) Basophils # (Auto) 0.1 x10^3/uL (0.0-0.2) Sodium Level 138 mmol/L (136-145) Potassium Level 5.0 mmol/L (3.5-5.1) Chloride Level 107 mmol/L (98-107) Carbon Dioxide Level 19 mmol/L (21-32) Anion Gap 12 (6-14) Blood Urea Nitrogen 32 mg/dL (8-26) Creatinine 3.5 mg/dL (0.7-1.3) Estimated GFR (Cockcroft-Gault) 22.3 Glucose Level 110 mg/dL (70-99) Calcium Level 7.9 mg/dL (8.5-10.1) Laboratory Tests Test 09/11/19 17:25 09/11/19 21:19 09/12/19 07:36 09/12/19 07:45 Glucose (Fingerstick) 106 mg/dL (70-99) 130 mg/dL (70-99) 106 mg/dL (70-99) White Blood Count 8.9 x10^3/uL (4.0-11.0) Red Blood Count 3.26 x10^6/uL (4.30-5.70) Hemoglobin 8.8 g/dL (13.0-17.5) Hematocrit 26.7 % (39.0-53.0) Mean Corpuscular Volume 82 fL (79-100) Mean Corpuscular Hemoglobin 27 pg (25-35) Mean Corpuscular Hemoglobin Concent 33 g/dL (31-37) Red Cell Distribution Width 17.7 % (11.5-14.5) Platelet Count 365 x10^3/uL (140-400) Neutrophils (%) (Auto) 66 % (31-73) Lymphocytes (%) (Auto) 23 % (24-48) Monocytes (%) (Auto) 7 % (0-9) Eosinophils (%) (Auto) 3 % (0-3) Basophils (%) (Auto) 1 % (0-3) Neutrophils # (Auto) 5.9 x10^3/uL (1.8-7.7) Lymphocytes # (Auto) 2.1 x10^3/uL (1.0-4.8) Monocytes # (Auto) 0.6 x10^3/uL (0.0-1.1) Eosinophils # (Auto) 0.2 x10^3/uL (0.0-0.7) Basophils # (Auto) 0.1 x10^3/uL (0.0-0.2) Sodium Level 138 mmol/L (136-145) Potassium Level 5.0 mmol/L (3.5-5.1) Chloride Level 107 mmol/L (98-107) Carbon Dioxide Level 19 mmol/L (21-32) Anion Gap 12 (6-14) Blood Urea Nitrogen 32 mg/dL (8-26) Creatinine 3.5 mg/dL (0.7-1.3) Estimated GFR (Cockcroft-Gault) 22.3 Glucose Level 110 mg/dL (70-99) Calcium Level 7.9 mg/dL (8.5-10.1) Medications Active Scripts Medications Dose Route/Sig Max Daily Dose Days Date Category [place] 5-325 Tablet (Acetaminophen/Hydrocodone Bitart) 1 Each Tablet 1 Tab PO Q6HRS 11/11/18 Rx Ondansetron Odt (Ondansetron) 4 Mg Tab.rapdis 1 Tab PO PRN Q6-8HRS 11/11/18 Rx Hydrocodone-Apap 7.5-325 (Hydrocodone Bit/Acetaminophen) 1 Each Tablet 1 Tab PO PRN Q6HRS PRN 08/30/17 Rx Vitamin B-12 (Cyanocobalamin (Vitamin B-12)) 1,000 Mcg Tablet 1 Tab PO DAILY 08/26/17 Reported Aspir 81 (Aspirin) 81 Mg Tablet.dr 1 Tab PO DAILY 08/26/17 Reported Trazodone Hcl 100 Mg Tablet 1 Tab PO QHS 08/26/17 Reported Montelukast Sodium Tablet (Montelukast Sodium) 10 Mg Tablet 1 Tab PO DAILY 08/26/17 Reported Metoprolol Succinate ( Xl ) (Metoprolol Succinate) 25 Mg Tab.er.24h 50 Mg PO DAILY 08/26/17 Reported Atorvastatin Calcium 80 Mg Tablet 1 Tab PO DAILY 08/26/17 Reported Humulin R (Insulin Regular, Human) 100 Unit/1 Ml Vial 100 Unit IJ SLIDING SCALE BID 06/24/15 Reported Lantus Solostar (Insulin Glargine,Hum.rec.anlog) 100 Unit/1 Ml Insuln.pen 40 Unit SQ QHS 11/04/14 Reported Zenpep 15,000 Units Capsule (Lipase/Protease/Amylase) 1 Each Capsule. 1 Each PO 2 TABS TID DAILY 04/22/14 Reported Prilosec (Omeprazole) 40 Mg Capsule. 40 Mg PO DAILY 04/22/14 Reported Impression . 1. Dyspnea secondary to acute interstitial edema, triggered by hypertensive crisis. 2. Chronic kidney disease. 3. Hypertension, under suboptimal control, presenting as hypertensive crisis. 4. Underlying 38 years of tobaccoism, suspect underlying chronic obstructive pulmonary disease. 5. Abnormal chest x-ray consistent with congestive heart failure. Plan . Continues to clinically improve, stable from pulmonary standpoint follow cardiology recs cont. to aggressively treat HTN, cont diruesis as well Follow CXR: improved Follow nephrology recs D/W FABY BACK MD Sep 12, 2019 10:49
--- NOTE | 2019-09-12 11:06 | PDOC ---
PROGRESS NOTES Subjective Subjective feels betetr ,but bP still hig 180/100 Objective Objective Vital Signs Date Time Temp Pulse Resp B/P (MAP) Pulse Ox O2 Delivery O2 Flow Rate FiO2 09/12/19 09:41 72 170/68 09/12/19 08:00 97.8 20 97 Room Air 97.8 Intake and Output 09/12/19 07:00 Intake Total 800 ml Output Total 600 ml Balance 200 ml Intake Oral 800 ml Output Urine Total 600 ml Physical Exam Abdomen: Soft, No tenderness Heart: Regular rate (SR), Other (2/6 systolic murmur to LLS border) Extremities: No cyanosis, No edema, Other (bounding peripheral pulses) General: Alert, Oriented X3 HEENT: Atraumatic, Mucous membr. moist/pink Lungs: Other (asilar crackles) MUSCULOSKELETAL: Full range of motion without pain Neuro: Normal speech, Sensation intact Psych/Mental Status: Mental status NL, Mood NL Skin: No breakdown, No significant lesion Diagnosis Problem List Problems Medical Problems: (1) Accelerated hypertension Status: Acute (2) CKD (chronic kidney disease) Status: Acute (3) Elevated d-dimer Status: Acute (4) Hyperkalemia Status: Acute Assessment Assessment 1. Acute pulmonary edema. 2. Dyspnea. 3. Hypertensive crisis. 4. Possible chronic obstructive pulmonary disease. 5. Diabetes mellitus type 2 with neuropathy. 6. Chronic kidney disease stage 4. 7. Coronary artery disease. 8. Chronic pancreatitis. 9. Anemia. 10. History of myocardial infarction. 11. 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 12. 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 13. History of prostate cancer, treated with radiation therapy. PLAN: move out of icu no renal artery sclerosis cxr improved pul edema cr 3.5 went up. ?d/c tomorrow adjust bp meds Consult Dr. Riddle for nephrology evaluation and management, Dr. Gray for pulmonary evaluation and management, Dr. Kaur for cardiology evaluation and management. For details, please refer to the orders. The patient underwent a V/Q scan to check for blood clots. The patient had a dose of Lovenox 100 mg subcutaneously x 1 yesterday. I will put him on heparin 5000 units subcutaneously every 12 hours and await evaluation and treatment from the specialist. Clinically, he is much better. Continue Nipride drip. I have restarted his metoprolol and other medications. The patient will be closely monitored in the Intensive Care Unit. For details, please refer to the orders. Hypertensive crisis- continue hydralazine and amlodipine. Metoprolol has been changed to Coreg and Imdur has been added. The blood Pressure is still extremely high today. Start blood pressure is 190-233 this morning. He just received his medications. Diabetes mellitus not controlled with the hypoglycemia- glucose 34 and 29. Discontinue Lantus. Continue sliding scale insulin. Dyspnea- acute pulmonary edema is improving. Patient also likely has underlying COPD. VQ scan is negative for pulmonary embolism. Acute kidney injury with CKD 3- worse due to hypertensive crisis. Renal sonogram is negative. Plan Plan of Care Problems Medical Problems: (1) Accelerated hypertension Status: Acute (2) CKD (chronic kidney disease) Status: Acute (3) Elevated d-dimer Status: Acute (4) Hyperkalemia Status: Acute Comment Review of Relevant I have reviewed the following items donell (where applicable) has been applied. Labs Laboratory Tests Test 09/11/19 17:25 09/11/19 21:19 09/12/19 07:36 09/12/19 07:45 Glucose (Fingerstick) 106 mg/dL (70-99) 130 mg/dL (70-99) 106 mg/dL (70-99) White Blood Count 8.9 x10^3/uL (4.0-11.0) Red Blood Count 3.26 x10^6/uL (4.30-5.70) Hemoglobin 8.8 g/dL (13.0-17.5) Hematocrit 26.7 % (39.0-53.0) Mean Corpuscular Volume 82 fL (79-100) Mean Corpuscular Hemoglobin 27 pg (25-35) Mean Corpuscular Hemoglobin Concent 33 g/dL (31-37) Red Cell Distribution Width 17.7 % (11.5-14.5) Platelet Count 365 x10^3/uL (140-400) Neutrophils (%) (Auto) 66 % (31-73) Lymphocytes (%) (Auto) 23 % (24-48) Monocytes (%) (Auto) 7 % (0-9) Eosinophils (%) (Auto) 3 % (0-3) Basophils (%) (Auto) 1 % (0-3) Neutrophils # (Auto) 5.9 x10^3/uL (1.8-7.7) Lymphocytes # (Auto) 2.1 x10^3/uL (1.0-4.8) Monocytes # (Auto) 0.6 x10^3/uL (0.0-1.1) Eosinophils # (Auto) 0.2 x10^3/uL (0.0-0.7) Basophils # (Auto) 0.1 x10^3/uL (0.0-0.2) Sodium Level 138 mmol/L (136-145) Potassium Level 5.0 mmol/L (3.5-5.1) Chloride Level 107 mmol/L (98-107) Carbon Dioxide Level 19 mmol/L (21-32) Anion Gap 12 (6-14) Blood Urea Nitrogen 32 mg/dL (8-26) Creatinine 3.5 mg/dL (0.7-1.3) Estimated GFR (Cockcroft-Gault) 22.3 Glucose Level 110 mg/dL (70-99) Calcium Level 7.9 mg/dL (8.5-10.1) Medications Current Medications Clonidine HCl (Catapres) 0.1 mg PRN Q1HR PRN PO HYPERTENSION; Start 09/11/19 at 13:15 Doxazosin Mesylate (Cardura) 4 mg DAILY PO Last administered on 09/12/19at 09:39; Start 09/11/19 at 18:00 Hydralazine HCl (Apresoline) 100 mg BID PO Last administered on 09/12/19at 09:38; Start 09/11/19 at 21:00 Vitals/I & O Vital Sign - Last 24 Hours 09/11/19 09/11/19 09/11/19 09/11/19 12:00 12:00 13:00 13:30 Temp 98.3 98.3 Pulse 68 70 62 Resp 16 16 B/P (MAP) 217/90 (132) 173/78 (109) 175/75 Pulse Ox 98 98 O2 Delivery Room Air Room Air Room Air 09/11/19 09/11/19 09/11/19 09/11/19 13:31 14:00 15:00 16:00 Temp 98.6 98.6 Pulse 60 68 68 60 Resp 16 16 16 B/P (MAP) 175/75 200/77 (118) 179/69 (105) 164/64 (97) Pulse Ox 98 98 100 O2 Delivery Room Air Room Air Room Air 09/11/19 09/11/19 09/11/19 09/11/19 17:27 17:28 20:07 20:14 Temp 97.9 97.9 Pulse 68 68 59 Resp 18 B/P (MAP) 164/64 164/64 163/68 (99) Pulse Ox 98 O2 Delivery Room Air Room Air 09/11/19 09/12/19 09/12/19 09/12/19 21:14 00:09 04:03 04:44 Temp 98.4 98.5 98.4 98.5 Pulse 59 62 59 59 Resp 16 17 B/P (MAP) 163/68 164/64 (97) 181/67 (105) 181/67 Pulse Ox 94 95 O2 Delivery Room Air Room Air 09/12/19 09/12/19 09/12/19 09/12/19 06:05 06:26 07:35 08:00 Pulse 72 68 71 Resp 17 B/P (MAP) 179/76 (110) 179/72 182/74 O2 Delivery Room Air Room Air 09/12/19 09/12/19 09/12/19 09/12/19 08:00 09:38 09:39 09:40 Temp 97.8 97.8 Pulse 67 64 64 72 Resp 20 B/P (MAP) 170/68 (102) 170/68 170/68 170/68 Pulse Ox 97 O2 Delivery Room Air 09/12/19 09:41 Pulse 72 B/P (MAP) 170/68 Intake and Output 09/11/19 09/11/19 09/12/19 15:00 23:00 07:00 Intake Total 480 ml 200 ml 120 ml Output Total 500 ml 100 ml Balance -20 ml 100 ml 120 ml Nutrition Consultation Dietary Evaluation: Recommendations by RD: Dietary education by RD, Increase Calorie Intake Comments: Continue w/renal/ADA diet as ordered, honor food preferences, and provide snacks as requested; verbally reviewed menu w/pt, he is aware of how to call diet office and has been making changes as needed Provided renal non-dialysis education and low-sodium/heart-healthy diet education, Discussed high-potassium, high-phosphours foods to limit and ways to limit salt intake. Appropriate handouts provided Expected Outcomes/Goals: PO intake to meet >75% est needs Additional diet education questions to be answered as able prior to discharge Interpretation of weight loss: >1-2% in 1 week Malnutrition Findings: Food and Nutrition Intake (Mod: <75% est energy req 7days Weight Status: Appropriate INÉS WALTER MD Sep 12, 2019 11:06
--- NOTE | 2019-09-12 12:36 | PDOC ---
PROGRESS NOTES Subjective Subjective SEEN IN FOLLOW UP OF CKD4 AND HTN Objective Objective Vital Signs Date Time Temp Pulse Resp B/P (MAP) Pulse Ox O2 Delivery O2 Flow Rate FiO2 09/12/19 09:41 72 170/68 09/12/19 08:00 97.8 20 97 Room Air 97.8 Intake and Output 09/12/19 07:00 Intake Total 800 ml Output Total 600 ml Balance 200 ml Intake Oral 800 ml Output Urine Total 600 ml Physical Exam Abdomen: Normal bowel sounds, Soft, No tenderness, No hepatosplenomegaly, No masses Heart: Regular rate, Normal S1, Normal S2, No murmurs, Gallops Extremities: No clubbing, No cyanosis, No edema, Normal pulses, No tenderness/swelling General: Alert, Oriented X3, Cooperative, No acute distress Lungs: Clear to auscultation, Normal air movement Psych/Mental Status: Mental status NL, Mood NL Diagnosis RENAL FAILURE: Chronic (CKD stage IV), Other (DUE TO HTN) Assessment Assessment Problems Medical Problems: (1) Accelerated hypertension Status: Acute (2) CKD (chronic kidney disease) Status: Acute (3) Elevated d-dimer Status: Acute (4) Hyperkalemia Status: Acute Plan Plan of Care CONT BP MANAGEMENT PER CARDIOLOGY. LIKELY WILL REMAIN CKD4 Comment Review of Relevant I have reviewed the following items donell (where applicable) has been applied. Labs Laboratory Tests Test 09/10/19 13:04 09/10/19 17:49 09/10/19 21:24 09/11/19 02:47 Glucose (Fingerstick) 220 mg/dL (70-99) 162 mg/dL (70-99) 129 mg/dL (70-99) 41 mg/dL (70-99) Test 09/11/19 03:25 09/11/19 03:30 09/11/19 04:45 09/11/19 08:44 Glucose (Fingerstick) 110 mg/dL (70-99) 34 mg/dL (70-99) Urine Collection Type Unknown Urine Color Yellow Urine Clarity Clear Urine pH 6.0 Urine Specific [place] 1.010 Urine Protein 100 mg/dL (NEG-TRACE) Urine Glucose (UA) Negative mg/dL (NEG) Urine Ketones (Stick) Negative mg/dL (NEG) Urine Blood Negative (NEG) Urine Nitrite Negative (NEG) Urine Bilirubin Negative (NEG) Urine Urobilinogen Dipstick 0.2 mg/dL (0.2 mg/dL) Urine Leukocyte Esterase Negative (NEG) Urine RBC Rare /HPF (0-2) Urine WBC Rare /HPF (0-4) Urine Bacteria 0 /HPF (0-FEW) Urine Opiates Screen Neg (NEG) Urine Methadone Screen Neg (NEG) Urine Barbiturates Neg (NEG) Urine Phencyclidine Screen Neg (NEG) Urine Amphetamine/Methamphetamine Neg (NEG) Urine Benzodiazepines Screen Neg (NEG) Urine Cocaine Screen Neg (NEG) Urine Cannabinoids Screen Neg (NEG) Urine Ethyl Alcohol Neg (NEG) White Blood Count 8.7 x10^3/uL (4.0-11.0) Red Blood Count 3.31 x10^6/uL (4.30-5.70) Hemoglobin 9.0 g/dL (13.0-17.5) Hematocrit 27.0 % (39.0-53.0) Mean Corpuscular Volume 81 fL (79-100) Mean Corpuscular Hemoglobin 27 pg (25-35) Mean Corpuscular Hemoglobin Concent 33 g/dL (31-37) Red Cell Distribution Width 17.2 % (11.5-14.5) Platelet Count 369 x10^3/uL (140-400) Neutrophils (%) (Auto) 70 % (31-73) Lymphocytes (%) (Auto) 22 % (24-48) Monocytes (%) (Auto) 6 % (0-9) Eosinophils (%) (Auto) 2 % (0-3) Basophils (%) (Auto) 1 % (0-3) Neutrophils # (Auto) 6.1 x10^3/uL (1.8-7.7) Lymphocytes # (Auto) 1.9 x10^3/uL (1.0-4.8) Monocytes # (Auto) 0.5 x10^3/uL (0.0-1.1) Eosinophils # (Auto) 0.2 x10^3/uL (0.0-0.7) Basophils # (Auto) 0.1 x10^3/uL (0.0-0.2) Sodium Level 133 mmol/L (136-145) Potassium Level 4.6 mmol/L (3.5-5.1) Chloride Level 104 mmol/L (98-107) Carbon Dioxide Level 20 mmol/L (21-32) Anion Gap 9 (6-14) Blood Urea Nitrogen 31 mg/dL (8-26) Creatinine 3.2 mg/dL (0.7-1.3) Estimated GFR (Cockcroft-Gault) 24.7 BUN/Creatinine Ratio 10 (6-20) Glucose Level 113 mg/dL (70-99) Calcium Level 7.6 mg/dL (8.5-10.1) Total Bilirubin 0.3 mg/dL (0.2-1.0) Aspartate Amino Transf (AST/SGOT) 16 U/L (15-37) Alanine Aminotransferase (ALT/SGPT) 23 U/L (16-63) Alkaline Phosphatase 151 U/L (46-116) Total Protein 5.3 g/dL (6.4-8.2) Albumin 2.1 g/dL (3.4-5.0) Albumin/Globulin Ratio 0.7 (1.0-1.7) Test 09/11/19 08:45 09/11/19 09:10 09/11/19 17:25 09/11/19 21:19 Glucose (Fingerstick) 29 mg/dL (70-99) 106 mg/dL (70-99) 130 mg/dL (70-99) Sodium Level 136 mmol/L (136-145) Potassium Level 5.0 mmol/L (3.5-5.1) Chloride Level 104 mmol/L (98-107) Carbon Dioxide Level 19 mmol/L (21-32) Anion Gap 13 (6-14) Blood Urea Nitrogen 30 mg/dL (8-26) Creatinine 3.1 mg/dL (0.7-1.3) Estimated GFR (Cockcroft-Gault) 25.6 Glucose Level 219 mg/dL (70-99) Calcium Level 8.1 mg/dL (8.5-10.1) Test 09/12/19 07:36 09/12/19 07:45 09/12/19 11:28 Glucose (Fingerstick) 106 mg/dL (70-99) 294 mg/dL (70-99) White Blood Count 8.9 x10^3/uL (4.0-11.0) Red Blood Count 3.26 x10^6/uL (4.30-5.70) Hemoglobin 8.8 g/dL (13.0-17.5) Hematocrit 26.7 % (39.0-53.0) Mean Corpuscular Volume 82 fL (79-100) Mean Corpuscular Hemoglobin 27 pg (25-35) Mean Corpuscular Hemoglobin Concent 33 g/dL (31-37) Red Cell Distribution Width 17.7 % (11.5-14.5) Platelet Count 365 x10^3/uL (140-400) Neutrophils (%) (Auto) 66 % (31-73) Lymphocytes (%) (Auto) 23 % (24-48) Monocytes (%) (Auto) 7 % (0-9) Eosinophils (%) (Auto) 3 % (0-3) Basophils (%) (Auto) 1 % (0-3) Neutrophils # (Auto) 5.9 x10^3/uL (1.8-7.7) Lymphocytes # (Auto) 2.1 x10^3/uL (1.0-4.8) Monocytes # (Auto) 0.6 x10^3/uL (0.0-1.1) Eosinophils # (Auto) 0.2 x10^3/uL (0.0-0.7) Basophils # (Auto) 0.1 x10^3/uL (0.0-0.2) Sodium Level 138 mmol/L (136-145) Potassium Level 5.0 mmol/L (3.5-5.1) Chloride Level 107 mmol/L (98-107) Carbon Dioxide Level 19 mmol/L (21-32) Anion Gap 12 (6-14) Blood Urea Nitrogen 32 mg/dL (8-26) Creatinine 3.5 mg/dL (0.7-1.3) Estimated GFR (Cockcroft-Gault) 22.3 Glucose Level 110 mg/dL (70-99) Calcium Level 7.9 mg/dL (8.5-10.1) Laboratory Tests Test 09/11/19 17:25 09/11/19 21:19 09/12/19 07:36 09/12/19 07:45 Glucose (Fingerstick) 106 mg/dL (70-99) 130 mg/dL (70-99) 106 mg/dL (70-99) White Blood Count 8.9 x10^3/uL (4.0-11.0) Red Blood Count 3.26 x10^6/uL (4.30-5.70) Hemoglobin 8.8 g/dL (13.0-17.5) Hematocrit 26.7 % (39.0-53.0) Mean Corpuscular Volume 82 fL (79-100) Mean Corpuscular Hemoglobin 27 pg (25-35) Mean Corpuscular Hemoglobin Concent 33 g/dL (31-37) Red Cell Distribution Width 17.7 % (11.5-14.5) Platelet Count 365 x10^3/uL (140-400) Neutrophils (%) (Auto) 66 % (31-73) Lymphocytes (%) (Auto) 23 % (24-48) Monocytes (%) (Auto) 7 % (0-9) Eosinophils (%) (Auto) 3 % (0-3) Basophils (%) (Auto) 1 % (0-3) Neutrophils # (Auto) 5.9 x10^3/uL (1.8-7.7) Lymphocytes # (Auto) 2.1 x10^3/uL (1.0-4.8) Monocytes # (Auto) 0.6 x10^3/uL (0.0-1.1) Eosinophils # (Auto) 0.2 x10^3/uL (0.0-0.7) Basophils # (Auto) 0.1 x10^3/uL (0.0-0.2) Sodium Level 138 mmol/L (136-145) Potassium Level 5.0 mmol/L (3.5-5.1) Chloride Level 107 mmol/L (98-107) Carbon Dioxide Level 19 mmol/L (21-32) Anion Gap 12 (6-14) Blood Urea Nitrogen 32 mg/dL (8-26) Creatinine 3.5 mg/dL (0.7-1.3) Estimated GFR (Cockcroft-Gault) 22.3 Glucose Level 110 mg/dL (70-99) Calcium Level 7.9 mg/dL (8.5-10.1) Test 09/12/19 11:28 Glucose (Fingerstick) 294 mg/dL (70-99) Medications Current Medications Albuterol/ Ipratropium (Duoneb) 3 ml 1X ONCE NEB Last administered on 09/09/19at 17:47; Start 09/09/19 at 17:45; Stop 09/09/19 at 17:46; Status DC Labetalol HCl (Normodyne Iv Push) 10 mg 1X ONCE IVP Last administered on 09/09/19at 20:32; Start 09/09/19 at 18:30; Stop 09/09/19 at 18:31; Status DC Calcium Gluconate (Calcium Gluconate) 1,000 mg 1X ONCE IVP Last administered on 09/09/19at 19:52; Start 09/09/19 at 18:45; Stop 09/09/19 at 18:46; Status DC Sodium Bicarbonate (Sodium Bicarb Adult 8.4% Syr) 50 meq 1X ONCE IV Last administered on 09/09/19at 19:52; Start 09/09/19 at 18:45; Stop 09/09/19 at 18:46; Status DC Dextrose (Dextrose 50%-Water Syringe) 25 gm 1X ONCE IV Last administered on 09/09/19at 19:53; Start 09/09/19 at 18:45; Stop 09/09/19 at 18:46; Status DC Insulin Human Regular (HumuLIN R VIAL) 10 unit 1X ONCE IV Last administered on 09/09/19at 19:54; Start 09/09/19 at 18:45; Stop 09/09/19 at 18:46; Status DC Hydralazine HCl (Apresoline Inj) 10 mg 1X ONCE IVP Last administered on 09/09/19at 19:49; Start 09/09/19 at 18:45; Stop 09/09/19 at 18:46; Status DC Enoxaparin Sodium (Lovenox 100mg Syringe) 100 mg 1X ONCE SQ Last administered on 09/09/19at 19:49; Start 09/09/19 at 19:00; Stop 09/09/19 at 19:01; Status DC Nicardipine HCl 50 mg/Sodium Chloride 250 ml @ 25 mls/hr CONT PRN IV SEE I/O RECORD Last administered on 09/09/19at 21:56; Start 09/09/19 at 19:00; Stop 09/10/19 at 16:14; Status DC Sodium Chloride 1,000 ml @ 1,000 mls/hr 1X ONCE IV ; Start 09/09/19 at 19:30; Stop 09/09/19 at 20:29; Status UNV Furosemide (Lasix) 40 mg 1X ONCE IVP Last administered on 09/09/19at 19:51; Start 09/09/19 at 19:30; Stop 09/09/19 at 19:31; Status DC Ondansetron HCl (Zofran) 4 mg PRN Q8HRS PRN IV NAUSEA/VOMITING Last administered on 09/10/19at 16:27; Start 09/09/19 at 19:30; Stop 09/10/19 at 19:29; Status DC Acetaminophen (Tylenol) 650 mg PRN Q4HRS PRN PO FEVER; Start 09/09/19 at 19:30; Stop 09/10/19 at 19:29; Status DC Albuterol/ Ipratropium (Duoneb) 3 ml RTQID NEB Last administered on 09/10/19 15:21; Start 09/09/19 at 20:00; Stop 09/10/19 at 19:59; Status DC Aspirin (Ecotrin) 81 mg DAILY PO Last administered on 09/12/19at 09:39; Start 09/10/19 at 11:00 Cyanocobalamin (Vitamin B-12) 1,000 mcg DAILY PO Last administered on 09/12/19 09:39; Start 09/10/19 at 11:00 Acetaminophen/ Hydrocodone Bitart (Lortab 7.5/325) 1 tab PRN Q6HRS PRN PO PAIN; Start 09/10/19 at 10:00 Metoprolol Succinate (Toprol Xl) 50 mg DAILY PO Last administered on 09/10/19 10:19; Start 09/10/19 at 11:00; Stop 09/10/19 at 16:14; Status DC Montelukast Sodium (Singulair) 10 mg DAILY PO Last administered on 09/12/19 09:39; Start 09/10/19 at 11:00 Trazodone HCl (Desyrel) 100 mg QHS PO Last administered on 09/11/19at 21:13; Start 09/10/19 at 21:00 Atorvastatin Calcium (Lipitor) 80 mg QHS PO Last administered on 09/11/19at 21:13; Start 09/10/19 at 21:00 Insulin Glargine (Lantus Syringe) 40 unit QHS SQ Last administered on 09/10/19at 21:29; Start 09/10/19 at 21:00; Stop 09/11/19 at 09:49; Status DC Amylase/Lipase/ Protease (Zenpep 10,000) 3 cap TIDWMEALS PO Last administered on 09/12/19at 11:38; Start 09/10/19 at 12:00 Pantoprazole Sodium (Protonix) 40 mg DAILYAC PO Last administered on 09/12/19 07:34; Start 09/10/19 at 11:00 Insulin Human Lispro (HumaLOG) 0-10 UNITS TIDBFRMEAL SQ Last administered on 09/12/19at 11:39; Start 09/10/19 at 16:30 Isosorbide Mononitrate (Imdur) 60 mg DAILY PO Last administered on 09/12/19at 09:41; Start 09/11/19 at 09:00 Hydralazine HCl (Apresoline) 50 mg TID PO Last administered on 09/11/19at 13:30; Start 09/10/19 at 21:00; Stop 09/11/19 at 17:09; Status DC Hydralazine HCl (Apresoline Inj) 10 mg PRN Q4HRS PRN IVP ELEVATED BP, SEE COMMENTS Last administered on 09/12/19at 06:26; Start 09/10/19 at 16:15 Labetalol HCl (Normodyne Iv Push) 20 mg PRN Q2HR PRN IVP HYPERTENSION 1ST CHOICE Last administered on 09/12/19at 04:44; Start 09/10/19 at 16:15 Furosemide (Lasix) 40 mg 1X ONCE IVP Last administered on 09/10/19at 16:26; Start 09/10/19 at 16:15; Stop 09/10/19 at 16:16; Status DC Amlodipine Besylate (Norvasc) 10 mg DAILY PO Last administered on 09/12/19at 09:40; Start 09/11/19 at 09:00 Aspirin (Ecotrin) 81 mg DAILYWBKFT PO ; Start 09/11/19 at 08:00; Stop 09/10/19 at 16:28; Status DC Carvedilol (Coreg) 12.5 mg BIDWMEALS PO Last administered on 09/12/19at 07:35; Start 09/10/19 at 17:00 Atorvastatin Calcium (Lipitor) 80 mg QHS PO ; Start 09/10/19 at 21:00; Stop 09/10/19 at 16:28; Status DC Ondansetron HCl (Zofran) 4 mg PRN Q6HRS PRN IVP NAUSEA/VOMITING; Start 09/10/19 at 20:15 Loperamide HCl (Imodium) 4 mg 1X ONCE PO Last administered on 09/10/19at 22:38; Start 09/10/19 at 22:30; Stop 09/10/19 at 22:31; Status DC Dextrose (Dextrose 50%-Water Syringe) 25 gm STK-MED ONCE IV ; Start 09/11/19 at 08:53; Stop 09/11/19 at 08:53; Status DC Dextrose (Dextrose 50%-Water Syringe) 25 gm 1X ONCE IV Last administered on 09/11/19at 09:03; Start 09/11/19 at 09:00; Stop 09/11/19 at 09:01; Status DC Clonidine HCl (Catapres) 0.1 mg PRN Q1HR PRN PO HYPERTENSION; Start 09/11/19 at 13:15 Hydralazine HCl (Apresoline) 100 mg BID PO Last administered on 09/12/19at 09:38; Start 09/11/19 at 21:00 Doxazosin Mesylate (Cardura) 4 mg DAILY PO Last administered on 09/12/19at 09:39; Start 09/11/19 at 18:00 Active Scripts Active [place] 5-325 Tablet (Acetaminophen/Hydrocodone Bitart) 1 Each Tablet 1 Tab PO Q6HRS Ondansetron Odt (Ondansetron) 4 Mg Tab.rapdis 1 Tab PO PRN Q6-8HRS Hydrocodone-Apap 7.5-325 (Hydrocodone Bit/Acetaminophen) 1 Each Tablet 1 Tab PO PRN Q6HRS PRN Reported Vitamin B-12 (Cyanocobalamin (Vitamin B-12)) 1,000 Mcg Tablet 1 Tab PO DAILY Aspir 81 (Aspirin) 81 Mg Tablet.dr 1 Tab PO DAILY Trazodone Hcl 100 Mg Tablet 1 Tab PO QHS Montelukast Sodium Tablet (Montelukast Sodium) 10 Mg Tablet 1 Tab PO DAILY Metoprolol Succinate ( Xl ) (Metoprolol Succinate) 25 Mg Tab.er.24h 50 Mg PO DAILY Atorvastatin Calcium 80 Mg Tablet 1 Tab PO DAILY Humulin R (Insulin Regular, Human) 100 Unit/1 Ml Vial 100 Unit IJ SLIDING SCALE BID Lantus Solostar (Insulin Glargine,Hum.rec.anlog) 100 Unit/1 Ml Insuln.pen 40 Unit SQ QHS Zenpep 15,000 Units Capsule (Lipase/Protease/Amylase) 1 Each Capsule. 1 Each PO 2 TABS TID DAILY Prilosec (Omeprazole) 40 Mg Capsule.dr 40 Mg PO DAILY Vitals/I & O Vital Sign - Last 24 Hours 09/11/19 09/11/19 09/11/19 09/11/19 13:00 13:30 13:31 14:00 Pulse 70 62 60 68 Resp 16 16 B/P (MAP) 173/78 (109) 175/75 175/75 200/77 (118) Pulse Ox 98 98 O2 Delivery Room Air Room Air 09/11/19 09/11/19 09/11/19 09/11/19 15:00 16:00 17:27 17:28 Temp 98.6 98.6 Pulse 68 60 68 68 Resp 16 16 B/P (MAP) 179/69 (105) 164/64 (97) 164/64 164/64 Pulse Ox 98 100 O2 Delivery Room Air Room Air 09/11/19 09/11/19 09/11/19 09/12/19 20:07 20:14 21:14 00:09 Temp 97.9 98.4 97.9 98.4 Pulse 59 59 62 Resp 18 16 B/P (MAP) 163/68 (99) 163/68 164/64 (97) Pulse Ox 98 94 O2 Delivery Room Air Room Air Room Air 09/12/19 09/12/19 09/12/19 09/12/19 04:03 04:44 06:05 06:26 Temp 98.5 98.5 Pulse 59 59 72 68 Resp 17 17 B/P (MAP) 181/67 (105) 181/67 179/76 (110) 179/72 Pulse Ox 95 O2 Delivery Room Air Room Air 09/12/19 09/12/19 09/12/19 09/12/19 07:35 08:00 08:00 09:38 Temp 97.8 97.8 Pulse 71 67 64 Resp 20 B/P (MAP) 182/74 170/68 (102) 170/68 Pulse Ox 97 O2 Delivery Room Air Room Air 09/12/19 09/12/19 09/12/19 09:39 09:40 09:41 Pulse 64 72 72 B/P (MAP) 170/68 170/68 170/68 Intake and Output 09/11/19 09/11/19 09/12/19 15:00 23:00 07:00 Intake Total 480 ml 200 ml 120 ml Output Total 500 ml 100 ml Balance -20 ml 100 ml 120 ml Nutrition Consultation Dietary Evaluation: Recommendations by RD: Dietary education by RD, Increase Calorie Intake Comments: Continue w/renal/ADA diet as ordered, honor food preferences, and provide snacks as requested; verbally reviewed menu w/pt, he is aware of how to call diet office and has been making changes as needed Provided renal non-dialysis education and low-sodium/heart-healthy diet education, Discussed high-potassium, high-phosphours foods to limit and ways to limit salt intake. Appropriate handouts provided Expected Outcomes/Goals: PO intake to meet >75% est needs Additional diet education questions to be answered as able prior to discharge Interpretation of weight loss: >1-2% in 1 week Malnutrition Findings: Food and Nutrition Intake (Mod: <75% est energy req 7days Weight Status: Appropriate SANTIAGO EDWARDS MD Sep 12, 2019 12:36
--- NOTE | 2019-09-12 14:00 | NUR ---
Transfer Note: Pt transferred into room 646 from ICU, on telemetry, patches replaced. NSR at this time. No complaints of pain, alert and oriented x4, ad paco. BP elevated on arrival 186/68, given PRN clonidine. Addendum: 09/12/19 at 1844 by MARLENE CARLISLE RN At 1500, BP 185/71 Addendum: 09/12/19 at 1845 by MARLENE CARLISLE RN Given PRN clonidine with coreg [id number] for BP of 185/71
[2019-09-12] MEDS: cloNIDine HCL 0.1 MG TABLET PO PRN ×2 (14:23→17:07)
[2019-09-12] MEDS: traZODone 100 MG TABLET. PO SCH (21:11)
[2019-09-12] MEDS: ATORVASTATIN CALCIUM 40 MG TABLET. PO SCH (21:11)
[2019-09-13 03:00] VITALS: BP 161/60
[2019-09-13 05:56] LABS: CALCIUM 7.8 mg/dL (8.5-10.1); CREATININE 3.4 mg/dL (0.7-1.3); POTASSIUM 5.3 mmol/L (3.5-5.1)
[2019-09-13 07:44] VITALS: BP 172/66
[2019-09-13] MEDS: PANTOPRAZOLE 40 MG TABLET.DR. PO SCH (08:11)
[2019-09-13] MEDS: LIPASE/PROTEAS/AMYLAS 10/32/42 CAPSULE.DR. PO SCH (08:12)
[2019-09-13] MEDS: DOXAZOSIN MESYLATE 4 MG TABLET. PO SCH (08:13)
[2019-09-13] MEDS: amLODIPine BESYLATE 10 MG TABLET PO SCH (08:13)
[2019-09-13] MEDS: ASPIRIN ENTERIC COATED 81 MG TABLET.DR. PO SCH (08:13)
[2019-09-13] MEDS: CYANOCOBALAMIN (VITAMIN B-12) 1,000 MCG TABLET. PO SCH (08:14)
[2019-09-13] MEDS: MONTELUKAST SODIUM 10 MG TABLET. PO SCH (08:14)
[2019-09-13] MEDS: ISOSORBIDE MONONITRATE ER 30 MG TAB.ER.24H PO SCH (08:15)
[2019-09-13] MEDS: CARVEDILOL 12.5 MG TABLET. PO SCH (08:15)
[2019-09-13] MEDS: INSULIN LISPRO 300 UNITS/3 ML VIAL. SQ SCH ×2 (08:20→11:30)
--- NOTE | 2019-09-13 11:02 | PDOC ---
PROGRESS NOTES Subjective Subjective want to go home Objective Objective Vital Signs Date Time Temp Pulse Resp B/P (MAP) Pulse Ox O2 Delivery O2 Flow Rate FiO2 09/13/19 08:15 70 170/60 09/13/19 08:00 Room Air 09/13/19 07:44 98.2 16 96 98.2 Intake and Output 09/13/19 07:00 Intake Total 50 ml Balance 50 ml Intake Oral 50 ml # Voids 2 Physical Exam Abdomen: Normal bowel sounds, Soft, No tenderness, No hepatosplenomegaly, No masses Heart: Regular rate, Normal S1, Normal S2, No murmurs, Gallops Extremities: No clubbing, No cyanosis, No edema, Normal pulses, No tenderness/swelling General: Alert, Oriented X3, Cooperative, No acute distress HEENT: Atraumatic, Mucous membr. moist/pink Lungs: Clear to auscultation, Normal air movement MUSCULOSKELETAL: Full range of motion without pain Neuro: Normal speech, Sensation intact Psych/Mental Status: Mental status NL, Mood NL Skin: No breakdown, No significant lesion Diagnosis Problem List Problems Medical Problems: (1) Accelerated hypertension Status: Acute (2) CKD (chronic kidney disease) Status: Acute (3) Elevated d-dimer Status: Acute (4) Hyperkalemia Status: Acute RENAL FAILURE: Chronic (CKD stage IV), Other (DUE TO HTN) Assessment Assessment 1. Acute pulmonary edema. 2. Dyspnea. 3. Hypertensive crisis. 4. Possible chronic obstructive pulmonary disease. 5. Diabetes mellitus type 2 with neuropathy. 6. Chronic kidney disease stage 4. 7. Coronary artery disease. 8. Chronic pancreatitis. 9. Anemia. 10. History of myocardial infarction. 11. 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 12. 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 13. History of prostate cancer, treated with radiation therapy. PLAN: d/c home today no renal artery sclerosis cxr improved pul edema cr 3.4 went down slightly. f/u out pt adjust bp meds Plan Plan of Care Problems Medical Problems: (1) Accelerated hypertension Status: Acute (2) CKD (chronic kidney disease) Status: Acute (3) Elevated d-dimer Status: Acute (4) Hyperkalemia Status: Acute Comment Review of Relevant I have reviewed the following items donell (where applicable) has been applied. Labs Laboratory Tests Test 09/12/19 11:28 09/12/19 16:35 09/12/19 21:10 09/13/19 04:40 Glucose (Fingerstick) 294 mg/dL (70-99) 218 mg/dL (70-99) 159 mg/dL (70-99) Sodium Level 136 mmol/L (136-145) Potassium Level 5.3 mmol/L (3.5-5.1) Chloride Level 105 mmol/L (98-107) Carbon Dioxide Level 20 mmol/L (21-32) Anion Gap 11 (6-14) Blood Urea Nitrogen 37 mg/dL (8-26) Creatinine 3.4 mg/dL (0.7-1.3) Estimated GFR (Cockcroft-Gault) 23.0 Glucose Level 200 mg/dL (70-99) Calcium Level 7.8 mg/dL (8.5-10.1) Test 09/13/19 07:01 Glucose (Fingerstick) 177 mg/dL (70-99) Vitals/I & O Vital Sign - Last 24 Hours 09/12/19 09/12/19 09/12/19 09/12/19 12:00 14:23 15:15 16:16 Temp 97.1 97.1 98.2 97.1 97.1 98.2 Pulse 68 65 87 65 Resp 14 16 16 B/P (MAP) 189/68 (108) 188/68 130/74 (92) 188/69 (108) Pulse Ox 99 93 97 O2 Delivery Room Air Room Air Room Air 09/12/19 09/12/19 09/12/19 09/12/19 17:05 17:07 19:00 20:00 Temp 97.7 97.7 Pulse 70 70 62 Resp 18 B/P (MAP) 185/71 185/71 148/53 (84) Pulse Ox 98 O2 Delivery Room Air Room Air 09/12/19 09/12/19 09/13/19 09/13/19 21:11 23:00 03:00 07:44 Temp 97.8 98.8 98.2 97.8 98.8 98.2 Pulse 62 63 70 61 Resp 18 18 16 B/P (MAP) 148/53 154/62 (92) 161/60 (93) 172/66 (101) Pulse Ox 98 95 96 O2 Delivery Room Air Room Air Room Air 2/23/09/13/19 09/13/19 09/13/19 08:00 08:13 08:13 08:14 Pulse 70 70 70 B/P (MAP) 170/60 170/60 170/60 O2 Delivery Room Air 09/13/19 09/13/19 08:15 08:15 Pulse 70 70 B/P (MAP) 170/60 170/60 Intake and Output 09/12/19 09/12/19 09/13/19 15:00 23:00 07:00 Intake Total 0 ml 50 ml Balance 0 ml 50 ml Nutrition Consultation Dietary Evaluation: Recommendations by RD: Dietary education by RD, Increase Calorie Intake Comments: Continue w/renal/ADA diet as ordered, honor food preferences, and provide snacks as requested; verbally reviewed menu w/pt, he is aware of how to call diet office and has been making changes as needed Provided renal non-dialysis education and low-sodium/heart-healthy diet education, Discussed high-potassium, high-phosphours foods to limit and ways to limit salt intake. Appropriate handouts provided Expected Outcomes/Goals: PO intake to meet >75% est needs Additional diet education questions to be answered as able prior to discharge Interpretation of weight loss: >1-2% in 1 week Malnutrition Findings: Food and Nutrition Intake (Mod: <75% est energy req 7days Weight Status: Appropriate INÉS WALTER MD Sep 13, 2019 11:02
[2019-09-13] MEDS ORDERED: AMLO10TA8 PO (11:07)
[2019-09-13] MEDS ORDERED: HYDR-2869 PO (11:07)
[2019-09-13] MEDS ORDERED: CARV12.511 PO (11:07)
[2019-09-13] MEDS ORDERED: DOXA4TAB2 PO (11:07)
[2019-09-13] MEDS ORDERED: ISOS30TA4 PO (11:07)
[2019-09-13 11:25] VITALS: BP 146/51
--- NOTE | 2019-09-13 11:34 | NUR ---
Pt discharged to home with self care. Discharge instructions reviewed and pt verbalized understanding. Medication Cardura 4mg daily called into pts [facility] per request of Dr White. Pt notified by phone.
== END 2019-09-13 11:30 | disposition home or self-care (01) | DRG 682 ==
LOC: ER 17:14 → 1 WEST ICU 19:01 → 6 SOUTH 09-12 14:00
PROVIDERS: ADMIT Internal Medicine; ATTEND Internal Medicine
DX: N17.9 Acute kidney failure, unspecified (principal); I50.33 Acute on chronic diastolic (congestive) heart failure; I16.9 Hypertensive crisis, unspecified; I13.0 Hypertensive heart and chronic kidney disease with heart failure and stage 1 through stage 4 chronic kidney disease, or unspecified chronic kidney disease; K86.1 Other chronic pancreatitis; D64.9 Anemia, unspecified; E11.22 Type 2 diabetes mellitus with diabetic chronic kidney disease; E11.40 Type 2 diabetes mellitus with diabetic neuropathy, unspecified; E11.649 Type 2 diabetes mellitus with hypoglycemia without coma; E78.00 Pure hypercholesterolemia, unspecified; E78.5 Hyperlipidemia, unspecified; E87.5 Hyperkalemia; F17.210 Nicotine dependence, cigarettes, uncomplicated; F43.10 Post-traumatic stress disorder, unspecified; I25.10 Atherosclerotic heart disease of native coronary artery without angina pectoris; I25.2 Old myocardial infarction; N18.4 Chronic kidney disease, stage 4 (severe); Z79.4 Long term (current) use of insulin; Z82.49 Family history of ischemic heart disease and other diseases of the circulatory system; Z83.3 Family history of diabetes mellitus; Z85.46 Personal history of malignant neoplasm of prostate; Z87.19 Personal history of other diseases of the digestive system; Z90.49 Acquired absence of other specified parts of digestive tract; Z92.3 Personal history of irradiation; Z95.5 Presence of coronary angioplasty implant and graft; F41.9 Anxiety disorder, unspecified; K21.9 Gastro-esophageal reflux disease without esophagitis; M19.90 Unspecified osteoarthritis, unspecified site; R07.89 Other chest pain; Z71.6 Tobacco abuse counseling
CPT/HCPCS: 36415; 71045; 76770; 78582; 80048; 80053; 80061; 80076; 80307; 81001; 82962; 83690; 83880; 84443; 84484; 85025; 85379; 93005; 93306; 94640; 96372; 96374; 96375; 99291; A9540; A9558; J0360; J0610; J1650; J1815; J1940; J2405; J3490; J7042; J7050; J7620; G0378; J7030

== ENCOUNTER → 2019-10-06 | Outpatient (CLI) | payer BC ==
[2019-09-13 11:25] VITALS: BP 146/51
[~2019-10-06] MED LIST changes: +AMLO10TA8 PO; +CARV12.511 PO; +DOXA4TAB2 PO; +HYDR-2869 PO; +ISOS30TA4 PO
[2019-10-06 14:20] LABS: HEMATOCRIT 25.6 % (39.0-53.0); HEMOGLOBIN 8.6 g/dL (13.0-17.5)
[2019-10-06 14:39] LABS: ALBUMIN 2.7 g/dL (3.4-5.0); CALCIUM 8.2 mg/dL (8.5-10.1); CREATININE 2.8 mg/dL (0.7-1.3); GFR 28.8; MAGNESIUM 1.6 mg/dL (1.8-2.4); POTASSIUM 4.8 mmol/L (3.5-5.1)
[2019-10-06 18:58] LABS: CREATININE,RANDOM URINE 175.1 mg/dL (Not Establ.)
[2019-10-07 22:07] LABS: CREAT RD UR 155.1 mg/dL (Not Estab.); MICROALB RD UR 3418.2 ug/mL (Not Estab.)
[2019-10-07 23:08] LABS: CALCIUM PTH 8.1 mg/dL (8.7-10.2); PHOSPHORUS PTH 4.2 mg/dL (2.8-4.1); PTH INTACT 215 pg/mL (15-65)
== END | disposition home or self-care (01) ==
LOC: LAB 13:36
PROVIDERS: ATTEND Internal Medicine Nephrology
DX: N17.9 Acute kidney failure, unspecified (principal)
CPT/HCPCS: 36415; 80069; 82043; 82306; 82570; 83540; 83550; 83735; 83970; 84156; 85014; 85018

== ENCOUNTER → 2019-12-18 | Outpatient (CLI) | payer BC ==
[2019-12-18 16:37] LABS: HEMATOCRIT 23.9 % (39.0-53.0); HEMOGLOBIN 8.1 g/dL (13.0-17.5)
[2019-12-18 17:06] LABS: ALBUMIN 2.5 g/dL (3.4-5.0); CALCIUM 7.3 mg/dL (8.5-10.1); GFR 26.6; PHOSPHORUS 4.1 mg/dL (2.6-4.7); POTASSIUM 4.2 mmol/L (3.5-5.1)
[2019-12-19 13:10] LABS: CALCIUM PTH 7.9 mg/dL (8.7-10.2); CREATININE PTH 2.81 mg/dL (0.76-1.27); PTH INTACT 151 pg/mL (15-65)
== END | disposition home or self-care (01) ==
LOC: LAB 16:23
PROVIDERS: ATTEND Nurse Practitioner Adult Health
DX: N17.9 Acute kidney failure, unspecified (principal); I12.9 Hypertensive chronic kidney disease with stage 1 through stage 4 chronic kidney disease, or unspecified chronic kidney disease; E11.22 Type 2 diabetes mellitus with diabetic chronic kidney disease; N18.4 Chronic kidney disease, stage 4 (severe); D64.9 Anemia, unspecified; E55.9 Vitamin D deficiency, unspecified; N25.81 Secondary hyperparathyroidism of renal origin; R80.9 Proteinuria, unspecified; C61 Malignant neoplasm of prostate
CPT/HCPCS: 36415; 80069; 82728; 83540; 83550; 83970; 85014; 85018

== ENCOUNTER → 2020-01-12 | Outpatient (CLI) | payer BC ==
[2020-01-12 13:15] LABS: HEMATOCRIT 23.1 % (39.0-53.0); HEMOGLOBIN 7.8 g/dL (13.0-17.5)
[2020-01-12 13:29] LABS: ALBUMIN 2.5 g/dL (3.4-5.0); CALCIUM 7.8 mg/dL (8.5-10.1); CREATININE 3.1 mg/dL (0.7-1.3); GFR 25.6; PHOSPHORUS 4.3 mg/dL (2.6-4.7); POTASSIUM 4.9 mmol/L (3.5-5.1)
[2020-01-12 14:20] LABS: CREATININE,RANDOM URINE 95.6 mg/dL (Not Establ.)
[2020-01-13 03:08] LABS: CREAT RD UR 90.2 mg/dL (Not Estab.); MICROALB RD UR 1239.2 ug/mL (Not Estab.)
[2020-01-13 07:15] LABS: CALCIUM PTH 8.4 mg/dL (8.7-10.2); CREATININE PTH 2.94 mg/dL (0.76-1.27); PHOSPHORUS PTH 4.5 mg/dL (2.8-4.1); PTH INTACT 223 pg/mL (15-65)
== END | disposition home or self-care (01) ==
LOC: LAB 12:04
PROVIDERS: ATTEND Internal Medicine Nephrology
DX: E11.9 Type 2 diabetes mellitus without complications (principal); N18.4 Chronic kidney disease, stage 4 (severe); D64.9 Anemia, unspecified; R80.9 Proteinuria, unspecified
CPT/HCPCS: 36415; 80069; 82043; 82306; 82570; 83970; 84156; 85014; 85018

== ENCOUNTER → 2020-03-16 | Outpatient (CLI) | payer BC ==
[2020-03-09 13:14] VITALS: BP 155/76
[2020-03-16 10:45] LABS: HEMATOCRIT 30.9 % (39.0-53.0); HEMOGLOBIN 10.3 g/dL (13.0-17.5)
[2020-03-16 11:15] LABS: ALBUMIN 2.5 g/dL (3.4-5.0); CREATININE 3.2 mg/dL (0.7-1.3); GFR 24.7; PHOSPHORUS 4.5 mg/dL (2.6-4.7); POTASSIUM 4.9 mmol/L (3.5-5.1)
== END ==
LOC: LAB 10:22
PROVIDERS: ATTEND Internal Medicine Nephrology
DX: E11.22 Type 2 diabetes mellitus with diabetic chronic kidney disease (principal); D64.9 Anemia, unspecified; R80.9 Proteinuria, unspecified; N18.4 Chronic kidney disease, stage 4 (severe); E55.9 Vitamin D deficiency, unspecified; N25.81 Secondary hyperparathyroidism of renal origin; Z68.23 Body mass index [BMI] 23.0-23.9, adult
CPT/HCPCS: 36415; 80069; 82306; 85014; 85018

== ENCOUNTER → 2020-03-16 | Outpatient (CLI) | payer BC ==
[2020-03-09 13:14] VITALS: BP 155/76
[~2020-03-16] MED LIST changes: +CONTRAST GIVEN. MC PRN; +IOHEXOL 240 MG/ML 50ML VIAL. PO ONE
--- NOTE | 2020-03-16 10:26 | RAD ---
INDICATION: Reason: INCISIONAL HERNIA / Spl. Instructions: PO CONTRAST ONLY PER ORDERING DR. WHITE GFR 30ML OMNI 240 / History: COMPARISON: November 11, 2018 TECHNIQUE: Axial CT images obtained through the abdomen and pelvis with oral contrast. One or more of the following individualized dose reduction techniques were utilized for this examination: 1. Automated exposure control; 2. Adjustment of the mA and/or kV according to patient size; 3. Use of iterative reconstruction technique. FINDINGS: Calcific atherosclerosis of partially visualized coronary arteries. Mild groundglass opacities at the lung bases. Mild interstitial thickening at the lung bases. Severe calcific atherosclerosis. No intrahepatic bile duct dilation. Limited assessment of solid organ structures secondary to lack of contrast. There is calcification seen at the pancreas. Spleen is nonenlarged. Perinephric edema bilaterally. Urinary bladder is partially distended. There are some presumed fiducial markers within the prostate. Colonic diverticulosis. The suspected appendix is partially visualized with air within the lumen. Portions are not well seen secondary to unopacified loops of bowel within the region. No dilated loops of bowel to suggest obstruction. Degenerative changes the spine. Multilevel central canal and neural foraminal stenosis with disc protrusions and osteophyte formation the vertebral body endplates with facet hypertrophy. At the anterior abdominal wall superior to the umbilicus there is a questionable tiny defect seen measuring approximately 5 mm without a loop of bowel extending into it. IMPRESSION: * The pancreas is prominent in size with calcifications within. This can be seen with chronic pancreatitis. * Bilateral perinephric edema. This is a nonspecific finding but would correlate with symptoms to ensure there is not a pathologic cause such as pyelonephritis. * Questionable tiny anterior abdominal wall defect without a loop of bowel extending into the region. * Groundglass opacities and interstitial thickening at the lung bases. This can be seen with mild edema with other causes including small airway inflammation from pneumonitis also within differential. Electronically signed by: Elia Martinez MD (03/16/2020 10:24 AM) [id number]
== END ==
LOC: CT 08:46
PROVIDERS: ATTEND Specialist
DX: K86.1 Other chronic pancreatitis (principal); R60.9 Edema, unspecified; J18.9 Pneumonia, unspecified organism; K57.30 Diverticulosis of large intestine without perforation or abscess without bleeding
CPT/HCPCS: 74176; Q9966

== ENCOUNTER → 2020-04-06 | Outpatient (CLI) | payer BC ==
[2020-03-23 12:05] VITALS: BP 184/85
[~2020-04-06] MED LIST changes: -CONTRAST GIVEN. MC PRN; -IOHEXOL 240 MG/ML 50ML VIAL. PO ONE
[2020-04-06 14:46] LABS: BASO # 0.1 x10^3/uL (0.0-0.2); BASO % 1 % (0-3); EOS # 0.1 x10^3/uL (0.0-0.7); EOS % 1 % (0-3); HEMATOCRIT 31.7 % (39.0-53.0); HEMOGLOBIN 10.7 g/dL (13.0-17.5); LYMPH # 1.5 x10^3/uL (1.0-4.8); LYMPH % 15 % (24-48); MEAN CORPUSCULAR HEMOGLOBIN 28 pg (25-35); MEAN CORPUSCULAR HGB CONC 34 g/dL (31-37); MEAN CORPUSCULAR VOLUME 82 fL (79-100); MONO # 0.5 x10^3/uL (0.0-1.1); MONO % 5 % (0-9); NEUT # 7.7 x10^3/uL (1.8-7.7); NEUT % 78 % (31-73); PLATELET COUNT 360 x10^3/uL (140-400); RED BLOOD COUNT 3.86 x10^6/uL (4.30-5.70); RED CELL DISTRIBUTION WIDTH 17.9 % (11.5-14.5); WHITE BLOOD COUNT 9.9 x10^3/uL (4.0-11.0)
[2020-04-06 15:24] LABS: ALBUMIN 2.1 g/dL (3.4-5.0); ALBUMIN/GLOBULIN RATIO 0.6 (1.0-1.7); CALCIUM 7.9 mg/dL (8.5-10.1); CREATININE 3.5 mg/dL (0.7-1.3); GFR 22.3; POTASSIUM 4.8 mmol/L (3.5-5.1); TOTAL BILIRUBIN 0.3 mg/dL (0.2-1.0); TOTAL PROTEIN 5.8 g/dL (6.4-8.2)
[2020-04-07 13:15] LABS: KAPPA LAMBDA RATIO 1.33 (0.26-1.65); LAMBDA FREE 47.3 mg/L (5.7-26.3)
[2020-04-07 18:10] LABS: ALBUM 2.6 g/dL (2.9-4.4); ALPHA 1 0.3 g/dL (0.0-0.4); BETA 0.7 g/dL (0.7-1.3); GAMMA 0.7 g/dL (0.4-1.8); PROTEIN TOTAL 5.2 g/dL (6.0-8.5)
[2020-04-08 14:12] LABS: IMMUNOGLOBULIN A 269 mg/dL (90-386); IMMUNOGLOBULIN G 702 mg/dL (603-1613); IMMUNOGLOBULIN M 57 mg/dL (20-172)
== END | disposition home or self-care (01) ==
LOC: LAB 14:19
PROVIDERS: ATTEND Internal Medicine Hematology & Oncology
DX: Z12.5 Encounter for screening for malignant neoplasm of prostate (principal); D64.9 Anemia, unspecified
CPT/HCPCS: 36415; 80053; 82607; 82668; 82728; 82746; 82784; 83520; 83540; 83550; 84165; 85025; 85045; 86334; G0103

== ENCOUNTER 2020-06-29 17:39 | Inpatient (IN) | payer BC ==
[~2020-06-29] VITALS: Ht 165.1 cm; Wt 69.4 kg
[~2020-06-29 17:39] MED LIST changes: +AMLO-187 PO; -AMLO10TA8 PO
--- NOTE | 2020-06-29 17:53 | PHYS DOC ---
Past Medical History Past Medical History: Cancer, Diabetes-Type II, High Cholesterol, Hypertension, SD, Pancreatitis Additional Past Medical Histor: pancreatitis Past Surgical History: Cholecystectomy Additional Past Surgical Histo: back sx, pseudocyst, CARDIAC STENT, SALIVARY GLAND Smoking Status: Current Every Day Smoker Alcohol Use: None Drug Use: None General Adult EDM: Chief Complaint: SHORTNESS OF BREATH HPI: HPI: Patient is a 54 year old male who arrives with a chief complaint of shortness of breath. Patient has had worsening shortness of breath over the last 2 weeks which is acutely worse over the last couple days. Patient describes PND and orthopnea. Patient has a very difficult time with normal activities of daily living. Patient notes increased swelling to the abdomen and into his legs. Patient denies any vomiting but had some diarrhea. Patient has not had a mild cough. 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 Patient denies any fever. Patient describes diffuse achy discomfort in multiple muscle groups Review of Systems: Review of Systems: Constitutional: Denies fever or chills. [] Eyes: Denies change in visual acuity. [] HENT: Denies nasal congestion or sore throat. [] Respiratory: Complains of shortness of breath and a mild cough Cardiovascular: Complains of edema but no significant chest pain GI: Complains of abdominal pain and diarrhea but no vomiting : Denies dysuria. [] Musculoskeletal: Complains of diffuse myalgias Integument: Denies rash. [] Neurologic: Denies headache, focal weakness or sensory changes. [] Endocrine: Denies polyuria but has had polydipsia Lymphatic: Denies swollen glands. [] Psychiatric: Denies depression or anxiety. [] Heart Score: Risk Factors: Risk Factors: DM, Current or recent (<one month) smoker, HTN, HLP, family history of CAD, obesity. Risk Scores: Score 0 - 3: 2.5% MACE over next 6 weeks - Discharge Home Score 4 - 6: 20.3% MACE over next 6 weeks - Admit for Clinical Observation Score 7 - 10: 72.7% MACE over next 6 weeks - Early Invasive Strategies Current Medications: Current Medications Furosemide (Lasix) 40 mg 1X ONCE IVP Last administered on 06/29/20at 19:45; Start 06/29/20 at 18:15; Stop 06/29/20 at 18:16; Status DC Nitroglycerin (Nitro-Bid Oint) 1 inch 1X ONCE TP Last administered on 06/29/20at 19:45; Start 06/29/20 at 18:15; Stop 06/29/20 at 18:16; Status DC Hydromorphone HCl (Dilaudid) 1 mg 1X ONCE IVP Last administered on 06/29/20at 19:44; Start 06/29/20 at 18:15; Stop 06/29/20 at 18:19; Status DC Insulin Human Regular (HumuLIN R VIAL) 10 unit 1X ONCE IV ; Start 06/29/20 at 20:30; Stop 06/29/20 at 20:31 Dextrose (Dextrose 50%-Water Syringe) 25 gm 1X ONCE IV ; Start 06/29/20 at 20:30; Stop 06/29/20 at 20:31 Active Scripts Active Cardura (Doxazosin Mesylate) 4 Mg Tablet 4 Mg PO DAILY 30 Days Amlodipine Besylate 10 Mg Tablet 10 Mg PO DAILY 30 Days Carvedilol (Carvedilol) 12.5 Mg Tablet 12.5 Mg PO BIDWMEALS 30 Days Isosorbide Mononitrate Er (Isosorbide Mononitrate) 30 Mg Tab.er.24h 60 Mg PO DAILY 30 Days Hydralazine Hcl 50 Mg Tablet 100 Mg PO BID 30 Days Marland 5-325 Tablet (Acetaminophen/Hydrocodone Bitart) 1 Each Tablet 1 Tab PO Q6HRS Ondansetron Odt (Ondansetron) 4 Mg Tab.rapdis 1 Tab PO PRN Q6-8HRS Reported Vitamin B-12 (Cyanocobalamin (Vitamin B-12)) 1,000 Mcg Tablet 1 Tab PO DAILY Aspir 81 (Aspirin) 81 Mg Tablet.dr 1 Tab PO DAILY Trazodone Hcl 100 Mg Tablet 1 Tab PO QHS Montelukast Sodium Tablet (Montelukast Sodium) 10 Mg Tablet 1 Tab PO DAILY Atorvastatin Calcium 80 Mg Tablet 1 Tab PO DAILY Humulin R (Insulin Regular, Human) 100 Unit/1 Ml Vial 100 Unit IJ SLIDING SCALE BID Lantus Solostar (Insulin Glargine,Hum.rec.anlog) 100 Unit/1 Ml Insuln.pen 40 Unit SQ QHS Zenpep Dr 15,000 Units Capsule (Lipase/Protease/Amylase) 1 Each Capsule.dr 1 Each PO 2 TABS TID DAILY Prilosec (Omeprazole) 40 Mg Capsule.dr 40 Mg PO DAILY Allergies: Allergies: Allergies Coded Allergies Type Severity Reaction Last Updated Verified morphine Allergy Intermediate Itching 06/29/20 Yes Physical Exam: PE: Constitutional: Well developed, well nourished, mild respiratory distress, non- toxic appearance. [] HENT: Normocephalic, atraumatic, bilateral external ears normal, oropharynx m oist, no oral exudates, nose normal. [] Eyes: PERRLA, EOMI, conjunctiva normal, no discharge. [] Neck: Normal range of motion, no tenderness, supple, no stridor. [] Cardiovascular:Heart rate regular rhythm, peripheral pulses are intact cap refill is less than 2 seconds Lungs & Thorax: Diminished breath sounds bilaterally Abdomen: Mild distention, mild diffuse tenderness without guarding or rebound no masses, no pulsatile masses. [] Skin: Warm, dry, no erythema, no rash. [] Back: No tenderness, no CVA tenderness. [] Extremities 2+ bilateral extremity edema, ROM intact, Neurologic: Alert and oriented X 3, normal motor function, normal sensory function, no focal deficits noted. [] Psychologic: Affect normal, judgement normal, mood normal. [] Current Patient Data: Labs: Laboratory Tests Test 06/29/20 19:25 White Blood Count 9.2 x10^3/uL Red Blood Count 3.13 x10^6/uL Hemoglobin 8.4 g/dL Hematocrit 26.2 % Mean Corpuscular Volume 84 fL Mean Corpuscular Hemoglobin 27 pg Mean Corpuscular Hemoglobin Concent 32 g/dL Red Cell Distribution Width 18.9 % Platelet Count 298 x10^3/uL Neutrophils (%) (Auto) 70 % Lymphocytes (%) (Auto) 20 % Monocytes (%) (Auto) 6 % Eosinophils (%) (Auto) 4 % Basophils (%) (Auto) 1 % Neutrophils # (Auto) 6.5 x10^3/uL Lymphocytes # (Auto) 1.8 x10^3/uL Monocytes # (Auto) 0.5 x10^3/uL Eosinophils # (Auto) 0.4 x10^3/uL Basophils # (Auto) 0.1 x10^3/uL Prothrombin Time 15.2 SEC Prothromb Time International Ratio 1.2 Activated Partial Thromboplast Time 39 SEC Sodium Level 136 mmol/L Potassium Level 5.4 mmol/L Chloride Level 108 mmol/L Carbon Dioxide Level 18 mmol/L Anion Gap 10 Blood Urea Nitrogen 32 mg/dL Creatinine 4.4 mg/dL Estimated GFR (Cockcroft-Gault) 17.1 BUN/Creatinine Ratio 7 Glucose Level 165 mg/dL Calcium Level 7.8 mg/dL Magnesium Level 1.7 mg/dL Total Bilirubin 0.2 mg/dL Aspartate Amino Transf (AST/SGOT) 10 U/L Alanine Aminotransferase (ALT/SGPT) 9 U/L Alkaline Phosphatase 108 U/L Troponin I Quantitative < 0.017 ng/mL PR-Scd-S-Type Natriuretic Peptide 3424 pg/mL Total Protein 5.8 g/dL Albumin 2.4 g/dL Albumin/Globulin Ratio 0.7 Lipase 48 U/L Current Medications Medications (Trade) Dose Ordered Sig/Ravinder Route PRN Reason Start Time Stop Time Status Last Admin Dose Admin Furosemide (Lasix) 40 mg 1X ONCE IVP 06/29/20 18:15 06/29/20 18:16 DC 06/29/20 19:45 Nitroglycerin (Nitro-Bid Oint) 1 inch 1X ONCE TP 06/29/20 18:15 06/29/20 18:16 DC 06/29/20 19:45 Hydromorphone HCl (Dilaudid) 1 mg 1X ONCE IVP 06/29/20 18:15 06/29/20 18:19 DC 06/29/20 19:44 Insulin Human Regular (HumuLIN R VIAL) 10 unit 1X ONCE IV 06/29/20 20:30 06/29/20 20:31 Dextrose (Dextrose 50%-Water Syringe) 25 gm 1X ONCE IV 06/29/20 20:30 06/29/20 20:31 Vital Signs: Vital Signs Date Time Temp Pulse Resp B/P (MAP) Pulse Ox O2 Delivery O2 Flow Rate FiO2 06/29/20 19:45 68 209/95 06/29/20 19:44 24 94 Nasal Cannula 2.0 06/29/20 17:50 98.7 81 24 230/102 (144) 86 Room Air 98.7 EKG: EKG: [] EKG interpreted by me normal sinus rhythm with rate of 66 left axis deviat ion, LVH, peaked T waves in V2 through V4 Radiology/Procedures: Radiology/Procedures: [][facility] [address] [place], [place] [id number] IMAGING REPORT Signed PATIENT: ADAIR PINEDAUNT: [id number] : 1965 LOCATION: ER AGE: 54 SEX: M EXAM STATUS: REG ER ORD. PHYSICIAN: LEDA ROSENTHAL MD REASON: soa PROCEDURE: PORTABLE CHEST 1V Exam: Chest one view INDICATION: Short of air TECHNIQUE: Frontal view of the chest Comparisons: 09/11/2019 FINDINGS: The cardiomediastinal silhouette and pulmonary vessels are within normal limits. Mild increased interstitial opacities the lung bases bilaterally. New Compared to the study in August. No pleural effusion. IMPRESSION: Interstitial bibasilar airspace disease may relate to pulmonary edema or atypical infectious process. Electronically signed by: Ainsley Alvarado MD (06/29/2020 6:45 PM) [facility] DICTATED and SIGNED BY: AINSLEY ALVARADO MD DATE: 06/29/20 [id number] 0 Course & Med Decision Making: Course & Med Decision Making Pertinent Labs and Imaging studies reviewed. (See chart for details) [] 54-year-old male presents with worsening shortness of breath. Patient is hypoxic to 86% on room air on arrival. Patient improved to the mid 90s on submental oxygen. Patient found to have accelerated hypertension and started on Nitropaste and given IV Lasix for diuresis. Patient has mild hyperkalemia which is been treated. Patient has worsening renal function with a creatinine up to 4.4. Patient will need to be admitted for aggressive diuresis. Discussed the case with Dr. Valadez who admit. Nephrology consult has been placed. Dragon Disclaimer: Dragon Disclaimer: This electronic medical record was generated, in whole or in part, using a voice recognition dictation system. Departure Departure Impression: Primary Impression: Dyspnea Additional Impressions: Acute on chronic renal failure Accelerated hypertension Acute respiratory failure with hypoxia Volume overload Hyperkalemia Chronic anemia Disposition: ADMITTED INPT THIS HOSP Admitting Physician: Trina Valadez Condition: GUARDED Referrals: TRINA VALADEZ MD (PCP) LEDA ROSENTHAL MD Jun 29, 2020 17:53
[2020-06-29] MEDS ORDERED: NITROGLYCERIN OINT 1 GM PACKET. TP ONE (18:15)
[2020-06-29] MEDS ORDERED: HYDROmorphone 2 MG/ML VIAL IVP ONE (18:15)
[2020-06-29] MEDS ORDERED: FUROSEMIDE 40 MG/4 ML VIAL. IVP ONE (18:15)
--- NOTE | 2020-06-29 18:48 | RAD ---
Exam: Chest one view INDICATION: Short of air TECHNIQUE: Frontal view of the chest Comparisons: 09/11/2019 FINDINGS: The cardiomediastinal silhouette and pulmonary vessels are within normal limits. Mild increased interstitial opacities the lung bases bilaterally. New Compared to the study in August. No pleural effusion. IMPRESSION: Interstitial bibasilar airspace disease may relate to pulmonary edema or atypical infectious process. Electronically signed by: Ainsley Bradford MD (06/29/2020 6:45 PM) [place]
[2020-06-29 19:43] LABS: BASO # 0.1 x10^3/uL (0.0-0.2); BASO % 1 % (0-3); EOS # 0.4 x10^3/uL (0.0-0.7); EOS % 4 % (0-3); HEMATOCRIT 26.2 % (39.0-53.0); HEMOGLOBIN 8.4 g/dL (13.0-17.5); LYMPH # 1.8 x10^3/uL (1.0-4.8); LYMPH % 20 % (24-48); MEAN CORPUSCULAR HEMOGLOBIN 27 pg (25-35); MEAN CORPUSCULAR HGB CONC 32 g/dL (31-37); MEAN CORPUSCULAR VOLUME 84 fL (79-100); MONO # 0.5 x10^3/uL (0.0-1.1); MONO % 6 % (0-9); NEUT # 6.5 x10^3/uL (1.8-7.7); NEUT % 70 % (31-73); PLATELET COUNT 298 x10^3/uL (140-400); RED BLOOD COUNT 3.13 x10^6/uL (4.30-5.70); RED CELL DISTRIBUTION WIDTH 18.9 % (11.5-14.5); WHITE BLOOD COUNT 9.2 x10^3/uL (4.0-11.0)
[2020-06-29 19:57] LABS: CALCIUM 7.8 mg/dL (8.5-10.1); CREATININE 4.4 mg/dL (0.7-1.3); GFR 17.1; POTASSIUM 5.4 mmol/L (3.5-5.1); PROTHROMBIN TIME PATIENT 15.2 SEC (11.7-14.0)
[2020-06-29 20:03] LABS: ALBUMIN 2.4 g/dL (3.4-5.0); ALBUMIN/GLOBULIN RATIO 0.7 (1.0-1.7); MAGNESIUM 1.7 mg/dL (1.8-2.4); TOTAL BILIRUBIN 0.2 mg/dL (0.2-1.0); TOTAL PROTEIN 5.8 g/dL (6.4-8.2)
[2020-06-29 20:19] LABS: BILIRUBIN,URINE NEGATIVE (NEG); CLARITY,URINE CLEAR; COLOR,URINE YELLOW; NITRITE,URINE NEGATIVE (NEG); PROTEIN,URINE >=300 mg/dL (NEG-TRACE); UROBILINOGEN,URINE 0.2 mg/dL (0.2 mg/dL)
[2020-06-29 20:29] LABS: BACTERIA,URINE 0 /HPF (0-FEW)
[2020-06-29] MEDS ORDERED: DEXTROSE 50% 25 GM / 50ML DISP.SYRIN. IV ONE (20:30)
[2020-06-29] MEDS ORDERED: INSULIN REGULAR 100 UNIT/ML 3ML VIAL. IV ONE (20:30)
[2020-06-29 22:29] VITALS: BP 199/81
--- NOTE | 2020-06-29 23:40 | NUR ---
Pt arrived to room 258 @ 2215 per cart pt assisted to bed with standby assist, tele monitor applied vs obtained and pt bp elevated will reassess blood pressure once pt is settled. Poc explained pt stated his pain is better rating pain 2-3/10. Assessment completed will resume care and continue to monitor pt. Call light placed in reach.
[2020-06-29] MEDS ORDERED: FERR220S8 PO (23:45)
[2020-06-29] MEDS ORDERED: HYDR100T24 PO (23:45)
[2020-06-29] MEDS ORDERED: FOLI0.4T2 PO (23:45)
[2020-06-29] MEDS ORDERED: SODI650T PO (23:45)
[2020-06-29] MEDS ORDERED: CYAN25008 PO (23:45)
[2020-06-29] MEDS ORDERED: MIRT30TA93 PO (23:45)
[2020-06-29] MEDS ORDERED: OMEG100021 PO (23:45)
[2020-06-29] MEDS ORDERED: CARV25TA2 PO (23:45)
[2020-06-29 23:55] VITALS: BP 188/75
[2020-06-30 02:34] VITALS: BP 171/75
[2020-06-30 07:00] VITALS: BP 205/88
[2020-06-30] MEDS: CYANOCOBALAMIN (VITAMIN B-12) 1,000 MCG TABLET. PO SCH (09:09)
[2020-06-30] MEDS: PANTOPRAZOLE 40 MG TABLET.DR. PO SCH (09:10)
[2020-06-30] MEDS: amLODIPine BESYLATE 10 MG TABLET PO SCH (09:11)
[2020-06-30] MEDS: ASPIRIN ENTERIC COATED 81 MG TABLET.DR. PO SCH (09:11)
[2020-06-30] MEDS: SODIUM BICARBONATE 650 MG TABLET. PO SCH ×2 (09:11→20:35)
[2020-06-30] MEDS: FOLIC ACID 1 MG TABLET. PO SCH (09:11)
[2020-06-30] MEDS: OMEGA-3 FATTY ACIDS/FISH OIL 1,000 MG CAPSULE. PO SCH (09:11)
[2020-06-30] MEDS: FERROUS SULFATE 325 MG TABLET. PO SCH ×2 (09:11→20:36)
[2020-06-30] MEDS: ISOSORBIDE MONONITRATE ER 30 MG TAB.ER.24H PO SCH (09:11)
[2020-06-30] MEDS ORDERED: ACETAMINOPHEN 325 MG TABLET. PO PRN (10:30)
[2020-06-30] MEDS ORDERED: METOPROLOL TARTRATE 5 MG/5 ML VIAL. IVP ONE (10:45)
--- NOTE | 2020-06-30 10:55 | PDOC ---
Provider Note Date of Service: DATE: 06/30/20 TIME: 10:54 Provider Note H&P dictated #[id number] Justifications for Admission Other Justification TRINA ALDANA MD Jun 30, 2020 10:55
[2020-06-30 11:02] VITALS: BP 196/98
--- NOTE | 2020-06-30 11:06 | PDOC2 ---
PRESTON CALABRESE [employer]ER 06/30/20 1106: CARDIAC CONSULT DATE OF CONSULT Date of Consult DATE: 06/30/20 TIME: 11:01 REASON FOR CONSULT Reason for Consult: Hypertension REFERRING PHYSICIAN Referring Physician: Dr. Valadez SOURCE Source: Chart review, Patient HISTORY OF PRESENT ILLNESS HISTORY OF PRESENT ILLNESS This is a 54 yo male who presented secondary to shortness of breath. Has been present for the last couple of weeks. Progressively worsening. Much worse the last couple of days. CURRENT MEDICATIONS CURRENT MEDICATIONS Current Medications Medications (Trade) Dose Ordered Sig/Ravinder Route PRN Reason Start Time Stop Time Status Last Admin Dose Admin Furosemide (Lasix) 40 mg 1X ONCE IVP 06/29/20 18:15 06/29/20 18:16 DC 06/29/20 19:45 Nitroglycerin (Nitro-Bid Oint) 1 inch 1X ONCE TP 06/29/20 18:15 06/29/20 18:16 DC 06/29/20 19:45 Hydromorphone HCl (Dilaudid) 1 mg 1X ONCE IVP 06/29/20 18:15 06/29/20 18:19 DC 06/29/20 19:44 Insulin Human Regular (HumuLIN R VIAL) 10 unit 1X ONCE IV 06/29/20 20:30 06/29/20 20:31 DC 06/29/20 20:52 Dextrose (Dextrose 50%-Water Syringe) 25 gm 1X ONCE IV 06/29/20 20:30 06/29/20 20:31 DC 06/29/20 20:50 Amlodipine Besylate (Norvasc) 10 mg DAILY PO 06/30/20 09:00 06/30/20 09:11 Aspirin (Ecotrin) 81 mg DAILY PO 06/30/20 09:00 06/30/20 09:11 Isosorbide Mononitrate (Imdur) 60 mg DAILY PO 06/30/20 09:00 06/30/20 09:11 Sodium Bicarbonate (Sodium Bicarbonate) 650 mg BID PO 06/30/20 09:00 06/30/20 09:11 Cyanocobalamin (Vitamin B-12) 2,500 mcg DAILY PO 06/30/20 09:00 06/30/20 09:09 Ferrous Sulfate (Feosol) 325 mg BID PO 06/30/20 09:00 06/30/20 09:11 Folic Acid (Folic Acid) 1 mg DAILY PO 06/30/20 09:00 06/30/20 09:11 Hydralazine HCl (Apresoline) 100 mg TID PO 06/30/20 09:00 06/30/20 09:10 Fish Oil (Fish Oil) 1,000 mg DAILY PO 06/30/20 09:00 06/30/20 09:11 Pantoprazole Sodium (Protonix) 40 mg DAILYAC PO 06/30/20 08:30 06/30/20 09:10 ALLERGIES ALLERGIES: Coded Allergies: morphine (Verified Allergy, Intermediate, Itching, 06/29/20) VITALS/I&O VITALS/I&O: Vital Signs Date Time Temp Pulse Resp B/P (MAP) Pulse Ox O2 Delivery O2 Flow Rate FiO2 06/30/20 09:11 54 205/88 06/30/20 07:00 97.8 18 96 Nasal Cannula 2.0 97.8 I & O 06/29/20 06/29/20 06/30/20 15:00 23:00 07:00 Intake Total 400 ml Balance 400 ml LABS Lab: Laboratory Tests Test 06/29/20 19:25 06/29/20 20:12 06/30/20 03:47 06/30/20 07:38 White Blood Count 9.2 x10^3/uL (4.0-11.0) Red Blood Count 3.13 x10^6/uL (4.30-5.70) L Hemoglobin 8.4 g/dL (13.0-17.5) L Hematocrit 26.2 % (39.0-53.0) L Mean Corpuscular Volume 84 fL (79-100) Mean Corpuscular Hemoglobin 27 pg (25-35) Mean Corpuscular Hemoglobin Concent 32 g/dL (31-37) Red Cell Distribution Width 18.9 % (11.5-14.5) H Platelet Count 298 x10^3/uL (140-400) Neutrophils (%) (Auto) 70 % (31-73) Lymphocytes (%) (Auto) 20 % (24-48) L Monocytes (%) (Auto) 6 % (0-9) Eosinophils (%) (Auto) 4 % (0-3) H Basophils (%) (Auto) 1 % (0-3) Neutrophils # (Auto) 6.5 x10^3/uL (1.8-7.7) Lymphocytes # (Auto) 1.8 x10^3/uL (1.0-4.8) Monocytes # (Auto) 0.5 x10^3/uL (0.0-1.1) Eosinophils # (Auto) 0.4 x10^3/uL (0.0-0.7) Basophils # (Auto) 0.1 x10^3/uL (0.0-0.2) Prothrombin Time 15.2 SEC (11.7-14.0) H Prothrombin Time INR 1.2 (0.8-1.1) H Activated Partial Thromboplast Time 39 SEC (24-38) H Sodium Level 136 mmol/L (136-145) Potassium Level 5.4 mmol/L (3.5-5.1) H Chloride Level 108 mmol/L (98-107) H Carbon Dioxide Level 18 mmol/L (21-32) L Anion Gap 10 (6-14) Blood Urea Nitrogen 32 mg/dL (8-26) H Creatinine 4.4 mg/dL (0.7-1.3) H Estimated GFR (Cockcroft-Gault) 17.1 BUN/Creatinine Ratio 7 (6-20) Glucose Level 165 mg/dL (70-99) H Calcium Level 7.8 mg/dL (8.5-10.1) L Magnesium Level 1.7 mg/dL (1.8-2.4) L Total Bilirubin 0.2 mg/dL (0.2-1.0) Aspartate Amino Transferase (AST) 10 U/L (15-37) L Alanine Aminotransferase (ALT) 9 U/L (16-63) L Alkaline Phosphatase 108 U/L (46-116) Troponin I Quantitative < 0.017 ng/mL (0.000-0.055) AR-Ueo-A-Type Natriuretic Peptide 3424 pg/mL (0-124) H Total Protein 5.8 g/dL (6.4-8.2) L Albumin 2.4 g/dL (3.4-5.0) L Albumin/Globulin Ratio 0.7 (1.0-1.7) L Lipase 48 U/L (73-393) L Urine Collection Type Unknown Urine Color Yellow Urine Clarity Clear Urine pH 6.0 (<5.0-8.0) Urine Specific [place] 1.015 (1.000-1.030) Urine Protein >=300 mg/dL (NEG-TRACE) Urine Glucose (UA) Negative mg/dL (NEG) Urine Ketones (Stick) Negative mg/dL (NEG) Urine Blood Negative (NEG) Urine Nitrite Negative (NEG) Urine Bilirubin Negative (NEG) Urine Urobilinogen Dipstick 0.2 mg/dL (0.2 mg/dL) Urine Leukocyte Esterase Negative (NEG) Urine RBC 1-2 /HPF (0-2) Urine WBC 11-20 /HPF (0-4) Urine Squamous Epithelial Cells Occ /LPF Urine Bacteria 0 /HPF (0-FEW) Urine Mucus Slight /LPF Glucose (Fingerstick) 76 mg/dL (70-99) 254 mg/dL (70-99) H Laboratory Tests 06/29/20 19:25 Laboratory Tests 06/29/20 19:25 PETRA TELLEZ MD 06/30/20 1155: CARDIAC CONSULT REASON FOR CONSULT Reason for Consult: Heart failure HISTORY OF PRESENT ILLNESS HISTORY OF PRESENT ILLNESS He was seen by nephrology service today and planned for HD. He denies any chest pain but does have dyspnea. Initial ER BP > 200. He does not have syncope. Prior echo in Aug was unremarkable. PAST MEDICAL HISTORY Cardiovascular: CAD, HTN Renal/: Chronic renal insuff PAST SURGICAL HISTORY Past Surgical History PCI FAMILY HISTORY Family History NC SOCIAL HISTORY Social History No current alcohol or illicit drug use. CURRENT MEDICATIONS CURRENT MEDICATIONS IV metoprolol push IV labetalol PHYSICAL EXAM General: Alert, Oriented X3, Cooperative HEENT: Atraumatic Lungs: Clear to auscultation Heart: Regular rate Abdomen: Normal bowel sounds Extremities: Other (2+ LE edema. ) Skin: No rashes Neuro: Normal speech, Strength at 5/5 X4 ext Psych/Mental Status: Mental status NL MUSCULOSKELETAL: No joint tenderness EKG EKG SR ECHOCARDIOGRAM ECHOCARDIOGRAM Aug 2019 - Normal EF. ASSESSMENT/PLAN ASSESSMENT/PLAN 1. Acute on chronic diastolic HF due to ESRD 2. HTN 3. CAD - Agree with initiation of HD. - No further CV testing needed, his EKG, prior echo and trops are all unremarkable. -Supportive care. If after HD initiation, he still has dyspnea, can consider outpt ischemic evaluation. Thanks. PRESTON CALABRESE APRN Jun 30, 2020 11:06 PETRA TELLEZ MD Jun 30, 2020 11:55
[2020-06-30] MEDS: INSULIN LISPRO 300 UNITS/3 ML VIAL. SQ SCH ×2 (11:14→18:21)
--- NOTE | 2020-06-30 11:14 | NUR ---
SS following for discharge planning. SS reviewed pt chart and discussed with pt RN. Pt is from home and is currently requiring oxygen. COVID19 test pending. Cardiology and Nephrology consulted. Possible need for hemodialysis. SS will continue to follow for discharge planning.
--- NOTE | 2020-06-30 11:17 | HP ---
ADMIT DATE: 06/30/2020 HISTORY OF PRESENT ILLNESS: This 54-year-old -[place] male who was recently admitted in 08/2019 because of acute pulmonary edema and worsening renal failure, started having symptoms of dyspnea and fluid retention, gradually getting worse. Especially in the last 2-3 days, his symptoms are much worse and he was very short of breath, lightheaded and had significant increase in the swelling in the last 2 days. In the office, the patient has been seen in the last 2 weeks and his baseline creatinine, that is around 3.12, had increased to 3.96. Lasix was increased because of the worsening swelling of the legs. The patient was seen in the Emergency Room and is noted to have acute pulmonary edema and acute respiratory failure and hypertensive crisis. The patient's creatinine also increased to 4.4. Sodium is 136, potassium 5.4, CO2 of 18, BUN 32, glucose 165, magnesium 1.7, albumin 2.4, lipase 48, AST 10, ALT 9. BNP is 3424. Troponin less than 0.017. Glucose 76 and 254. INR is 1.2. WBC count 9.2 and hemoglobin 8.4. Urinalysis is negative. Chest x-ray shows interstitial bibasilar airspace disease, may be related to pulmonary edema or atypical infectious process. REVIEW OF SYSTEMS: The patient does admit to dyspnea and occasional cough, but denies any fever, chills or exposure to COVID-19 infection. He denies any nausea, vomiting, diarrhea or constipation. He admits to increasing swelling of the legs and dyspnea. He denies any chest pains or palpitations. Other systems reviewed and are negative. 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 He has insulin-dependent diabetes. During the previous admission in 08/2019, he was treated with IV nitrite for hypertensive crisis. PAST SURGICAL HISTORY: The patient has had cholecystectomy in 1999, treatment for pancreatic pseudocyst that was removed in 2001, lumbar diskectomy in 2008 and he again had lumbar microsurgery in 08/2017. FAMILY HISTORY: Positive for cancer, diabetes, hypertension and heart disease. ALLERGIES: None known any. MEDICATIONS: Reviewed and reconciled. He currently takes Lantus 30 units subcutaneously daily at home, but not consistently. His insulin requirements have gone down significantly. He uses sliding scale insulin. 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 Past history of alcohol abuse, but quit drinking more than 10 years ago. He continues to smoke about 1 pack per day for 20 years. Lab data as noted above. PHYSICAL EXAMINATION: GENERAL: The patient is a middle-aged male who is alert, oriented x 3 and not in any acute distress. VITAL SIGNS: Temperature 98, pulse 67 per minute, respirations 19 per minute and blood pressure on admission was 209/95, now it is 205/88 mmHg. EYES: Pupils reacting to light. Conjunctivae pale. Sclerae muddy. HENT: Unremarkable. NECK: Supple. JVP normal. No thyromegaly. Trachea midline. LUNGS: The patient is in moderate respiratory distress, on oxygen by nasal cannula. Decreased breath sounds bilaterally with moderate tachypnea. No wheezing noted. CARDIOVASCULAR: S1, S2 regular. ABDOMEN: Soft, nontender, no guarding, no rigidity. Bowel sounds present. EXTREMITIES: 3+ edema bilaterally. CENTRAL NERVOUS SYSTEM: Alert and oriented, generalized weakness. LABORATORY FINDINGS: As noted earlier. IMPRESSION: 1. Acute pulmonary edema. 2. Acute respiratory failure. 3. Acute hypertensive crisis. 4. Acute renal failure with chronic kidney disease stage 4. 5. Chronic obstructive pulmonary disease. 6. 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 7. Coronary artery disease. 8. Chronic pancreatitis. 9. Anemia. 10. History of myocardial infarction. 11. 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 12. History of prostate cancer, treated with radiation therapy. PLAN: 1. For acute renal failure, consult Dr. Riddle for Nephrology evaluation and management. The patient may need hemodialysis. 2. Hypertensive crisis, consult Dr. Kaur for Cardiology evaluation and management. I have resumed his home medications. I have also given him Lopressor 10 mg IV x 1 because there is a shortage of hydralazine. The patient may benefit from IV diuretics and/or dialysis. 3. Acute respiratory failure. Continue oxygenation. 4. Acute pulmonary edema. Resume medications. May need dialysis. 5. Diabetes mellitus with nephropathy and neuropathy. I will hold Lantus at this time and use sliding scale insulin twice a day only because of the renal failure. If the blood sugar remains high, then we will add more insulin. For details, please refer to the orders. 6. The patient also in isolation for suspicion for COVID infection and COVID-19 PCR test is pending. For details, please refer to the orders. TRINA ALDANA MD DR: VAZQUEZ/rene JOB#: [id number] / [id number]
[2020-06-30] MEDS ORDERED: LABETALOL 20 MG/4 ML DISP.SYRIN. IVP PRN (12:00)
--- NOTE | 2020-06-30 12:14 | PDOC2 ---
CONSULT Date of Consult Date of Consult DATE: 06/30/20 TIME: 12:09 History of Present Illness Reason for Visit: HISTORY OF PRESENT ILLNESS: This 54-year-old -[place] male who was recently admitted in 08/2019 because of acute pulmonary edema and worsening renal failure, started having symptoms of dyspnea and fluid retention, gradually getting worse. Especially in the last 2-3 days, his symptoms are much worse and he was very short of breath, lightheaded and had significant increase in the swelling in the last 2 days. In the office, the patient has been seen in the last 2 weeks and his baseline creatinine, that is around 3.12, had increased to 3.96. Lasix was increased because of the worsening swelling of the legs. The patient was seen in the Emergency Room and is noted to have acute pulmonary edema and acute respiratory failure and hypertensive crisis. The patient's creatinine also increased to 4.4. Sodium is 136, potassium 5.4, CO2 of 18, BUN 32, glucose 165, magnesium 1.7, albumin 2.4, lipase 48, AST 10, ALT 9. BNP is 3424. Troponin less than 0.017. Glucose 76 and 254. INR is 1.2. WBC count 9.2 and hemoglobin 8.4. Urinalysis is negative. Chest x-ray shows interstitial bibasilar airspace disease, may be related to pulmonary edema or atypical infectious process. REVIEW OF SYSTEMS: The patient does admit to dyspnea and occasional cough, but denies any fever, chills or exposure to COVID-19 infection. He denies any nausea, vomiting, diarrhea or constipation. He admits to increasing swelling of the legs and dyspnea. He denies any chest pains or palpitations. Other systems reviewed and are negative. 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 He has insulin-dependent diabetes. During the previous admission in 08/2019, he was treated with IV nitrite for hypertensive crisis. Past Medical History Cardiovascular: CAD, HTN Pulmonary: No pertinent hx GI: GERD, Other Heme/Onc: Anemia NOS, Cancer, Other Hepatobiliary: Other Psych: Anxiety, Other Musculoskeletal: low back pain, Osteoarthritis Rheumatologic: No pertinent hx Infectious disease: No pertinent hx Renal/: Chronic renal insuff Endocrine: Diabetes Past Surgical History Past Surgical History: Cholecystectomy, Tonsillectomy, Other Family History Family History: Coronary Artery Disease, Diabetes, Hypertension, Kidney Disease Social History ALCOHOL: none Drugs: None Lives: Alone Current Problem List Problem List Problems Medical Problems: (1) Accelerated hypertension Status: Acute (2) Acute on chronic renal failure Status: Acute (3) Acute respiratory failure with hypoxia Status: Acute (4) Chronic anemia Status: Acute (5) Hyperkalemia Status: Acute (6) Volume overload Status: Acute Current Medications Current Medications Current Medications Furosemide (Lasix) 40 mg 1X ONCE IVP Last administered on 06/29/20 19:45; Start 06/29/20 at 18:15; Stop 06/29/20 at 18:16; Status DC Nitroglycerin (Nitro-Bid Oint) 1 inch 1X ONCE TP Last administered on 06/29/20at 19:45; Start 06/29/20 at 18:15; Stop 06/29/20 at 18:16; Status DC Hydromorphone HCl (Dilaudid) 1 mg 1X ONCE IVP Last administered on 06/29/20at 19:44; Start 06/29/20 at 18:15; Stop 06/29/20 at 18:19; Status DC Insulin Human Regular (HumuLIN R VIAL) 10 unit 1X ONCE IV Last administered on 06/29/20at 20:52; Start 06/29/20 at 20:30; Stop 06/29/20 at 20:31; Status DC Dextrose (Dextrose 50%-Water Syringe) 25 gm 1X ONCE IV Last administered on 06/29/20at 20:50; Start 06/29/20 at 20:30; Stop 06/29/20 at 20:31; Status DC Amlodipine Besylate (Norvasc) 10 mg DAILY PO Last administered on 06/30/20at 09:11; Start 06/30/20 at 09:00 Aspirin (Ecotrin) 81 mg DAILY PO Last administered on 06/30/20at 09:11; Start 06/30/20 at 09:00 Isosorbide Mononitrate (Imdur) 60 mg DAILY PO Last administered on 06/30/20at 09:11; Start 06/30/20 at 09:00 Sodium Bicarbonate (Sodium Bicarbonate) 650 mg BID PO Last administered on 09:11; Start 06/30/20 at 09:00 Atorvastatin Calcium (Lipitor) 80 mg QHS PO ; Start 06/30/20 at 21:00 Carvedilol (Coreg) 25 mg BIDWMEALS PO ; Start 06/30/20 at 17:00 Cyanocobalamin (Vitamin B-12) 2,500 mcg DAILY PO Last administered on 06/30/20 t 09:09; Start 06/30/20 at 09:00 Ferrous Sulfate (Feosol) 325 mg BID PO Last administered on 06/30/20at 09:11; Start 06/30/20 at 09:00 Folic Acid (Folic Acid) 1 mg DAILY PO Last administered on 06/30/20at 09:11; Start 06/30/20 at 09:00 Hydralazine HCl (Apresoline) 100 mg TID PO Last administered on 06/30/20at 09:10; Start 06/30/20 at 09:00 Mirtazapine (Remeron) 30 mg QHS PO ; Start 06/30/20 at 21:00 Fish Oil (Fish Oil) 1,000 mg DAILY PO Last administered on 06/30/20 09:11; Start 06/30/20 at 09:00 Pantoprazole Sodium (Protonix) 40 mg DAILYAC PO Last administered on 06/30/20at 09:10; Start 06/30/20 at 08:30 Insulin Human Lispro (HumaLOG) 0-10 UNITS TIDAC SQ Last administered on 06/30/20at 11:14; Start 06/30/20 at 11:30 Acetaminophen (Tylenol) 650 mg PRN Q6HRS PRN PO MILD PAIN / TEMP > 100.3'F Last administered on 06/30/20 11:12; Start 06/30/20 at 10:30 Metoprolol Tartrate (Lopressor Vial) 10 mg 1X ONCE IVP Last administered on 06/30/20at 11:13; Start 06/30/20 at 10:45; Stop 06/30/20 at 10:50; Status DC Labetalol HCl (Normodyne Iv Push) 20 mg PRN Q2HR PRN IVP HYPERTENSION; Start 06/30/20 at 12:00 Active Scripts Active Amlodipine Besylate 10 Mg Tablet 10 Mg PO DAILY 30 Days Isosorbide Mononitrate Er (Isosorbide Mononitrate) 30 Mg Tab.er.24h 60 Mg PO DAILY 30 Days Reported Folic Acid 0.4 Mg Tablet 0.4 Mg PO DAILY Mirtazapine 30 Mg Tab.rapdis 1 Tab PO QHS 30 Days Ferrous Sulfate 220 Mg/5 Ml Elixir 65 Ml PO BID 30 Days Sodium Bicarbonate 650 Mg Tablet 1 Tab PO BID Vitamin B12 (Cyanocobalamin (Vitamin B-12)) 2,500 Mcg Tablet 1 Tab PO DAILY 30 Days Fish Oil 1,000 mg Softgel ([place]-3/Dha/Epa/Fish Oil) 1,000 Mg Capsule 1,000 Mg PO DAILY Carvedilol 25 Mg Tablet 25 Mg PO BIDWMEALS Hydralazine Hcl 100 Mg Tablet 1 Tab PO TID Aspir 81 (Aspirin) 81 Mg Tablet.dr 1 Tab PO DAILY Atorvastatin Calcium 80 Mg Tablet 1 Tab PO DAILY Prilosec (Omeprazole) 40 Mg Capsule.dr 40 Mg PO DAILY Allergies Allergies: Coded Allergies: morphine (Verified Allergy, Intermediate, Itching, 06/29/20) ROS General: YES: Fatigue, Malaise, Appetite PSYCHOLOGICAL ROS: YES: Anxiety, Depression Eyes: Yes Decreased vision HEENT: YES: Heacaches Respiratory: YES: Cough, Orthopnea, Shortness of breath Cardiovascular: yes Edema Gastrointestinal: Yes Constipation Genitourinary: YES Frequency, YES Other Musculoskeletal: Yes Muscular Weakness Neurological: Yes Weakness Skin: Yes Dry Skin Physical Exam General: Alert, Oriented X3, Cooperative, mild distress HEENT: Atraumatic, PERRLA, EOMI Lungs: Other (BASILAR RALES) Heart: Regular rate, Other (POS S4) Abdomen: Normal bowel sounds, Soft Extremities: No clubbing Skin: No breakdown Neuro: Normal speech, Sensation intact Psych/Mental Status: Mental status NL, Mood NL MUSCULOSKELETAL: No joint tenderness, No deformity, No muscular tenderness noted Vitals VITALS Vital Signs Date Time Temp Pulse Resp B/P (MAP) Pulse Ox O2 Delivery O2 Flow Rate FiO2 06/30/20 11:13 84 196/98 06/30/20 11:02 98.8 20 94 Nasal Cannula 2.0 98.8 Labs Labs Laboratory Tests Test 06/29/20 19:25 06/29/20 20:12 06/30/20 03:47 06/30/20 07:38 White Blood Count 9.2 x10^3/uL (4.0-11.0) Red Blood Count 3.13 x10^6/uL (4.30-5.70) Hemoglobin 8.4 g/dL (13.0-17.5) Hematocrit 26.2 % (39.0-53.0) Mean Corpuscular Volume 84 fL (79-100) Mean Corpuscular Hemoglobin 27 pg (25-35) Mean Corpuscular Hemoglobin Concent 32 g/dL (31-37) Red Cell Distribution Width 18.9 % (11.5-14.5) Platelet Count 298 x10^3/uL (140-400) Neutrophils (%) (Auto) 70 % (31-73) Lymphocytes (%) (Auto) 20 % (24-48) Monocytes (%) (Auto) 6 % (0-9) Eosinophils (%) (Auto) 4 % (0-3) Basophils (%) (Auto) 1 % (0-3) Neutrophils # (Auto) 6.5 x10^3/uL (1.8-7.7) Lymphocytes # (Auto) 1.8 x10^3/uL (1.0-4.8) Monocytes # (Auto) 0.5 x10^3/uL (0.0-1.1) Eosinophils # (Auto) 0.4 x10^3/uL (0.0-0.7) Basophils # (Auto) 0.1 x10^3/uL (0.0-0.2) Prothrombin Time 15.2 SEC (11.7-14.0) Prothromb Time International Ratio 1.2 (0.8-1.1) Activated Partial Thromboplast Time 39 SEC (24-38) Sodium Level 136 mmol/L (136-145) Potassium Level 5.4 mmol/L (3.5-5.1) Chloride Level 108 mmol/L (98-107) Carbon Dioxide Level 18 mmol/L (21-32) Anion Gap 10 (6-14) Blood Urea Nitrogen 32 mg/dL (8-26) Creatinine 4.4 mg/dL (0.7-1.3) Estimated GFR (Cockcroft-Gault) 17.1 BUN/Creatinine Ratio 7 (6-20) Glucose Level 165 mg/dL (70-99) Calcium Level 7.8 mg/dL (8.5-10.1) Magnesium Level 1.7 mg/dL (1.8-2.4) Total Bilirubin 0.2 mg/dL (0.2-1.0) Aspartate Amino Transf (AST/SGOT) 10 U/L (15-37) Alanine Aminotransferase (ALT/SGPT) 9 U/L (16-63) Alkaline Phosphatase 108 U/L (46-116) Troponin I Quantitative < 0.017 ng/mL (0.000-0.055) CK-Bbb-[id number]-Type Natriuretic Peptide 3424 pg/mL (0-124) Total Protein 5.8 g/dL (6.4-8.2) Albumin 2.4 g/dL (3.4-5.0) Albumin/Globulin Ratio 0.7 (1.0-1.7) Lipase 48 U/L (73-393) Urine Collection Type Unknown Urine Color Yellow Urine Clarity Clear Urine pH 6.0 (<5.0-8.0) Urine Specific [place] 1.015 (1.000-1.030) Urine Protein >=300 mg/dL (NEG-TRACE) Urine Glucose (UA) Negative mg/dL (NEG) Urine Ketones (Stick) Negative mg/dL (NEG) Urine Blood Negative (NEG) Urine Nitrite Negative (NEG) Urine Bilirubin Negative (NEG) Urine Urobilinogen Dipstick 0.2 mg/dL (0.2 mg/dL) Urine Leukocyte Esterase Negative (NEG) Urine RBC 1-2 /HPF (0-2) Urine WBC 11-20 /HPF (0-4) Urine Squamous Epithelial Cells Occ /LPF Urine Bacteria 0 /HPF (0-FEW) Urine Mucus Slight /LPF Glucose (Fingerstick) 76 mg/dL (70-99) 254 mg/dL (70-99) Test 06/30/20 11:48 Glucose (Fingerstick) 270 mg/dL (70-99) Laboratory Tests Test 06/29/20 19:25 06/29/20 20:12 06/30/20 03:47 06/30/20 07:38 White Blood Count 9.2 x10^3/uL (4.0-11.0) Red Blood Count 3.13 x10^6/uL (4.30-5.70) Hemoglobin 8.4 g/dL (13.0-17.5) Hematocrit 26.2 % (39.0-53.0) Mean Corpuscular Volume 84 fL (79-100) Mean Corpuscular Hemoglobin 27 pg (25-35) Mean Corpuscular Hemoglobin Concent 32 g/dL (31-37) Red Cell Distribution Width 18.9 % (11.5-14.5) Platelet Count 298 x10^3/uL (140-400) Neutrophils (%) (Auto) 70 % (31-73) Lymphocytes (%) (Auto) 20 % (24-48) Monocytes (%) (Auto) 6 % (0-9) Eosinophils (%) (Auto) 4 % (0-3) Basophils (%) (Auto) 1 % (0-3) Neutrophils # (Auto) 6.5 x10^3/uL (1.8-7.7) Lymphocytes # (Auto) 1.8 x10^3/uL (1.0-4.8) Monocytes # (Auto) 0.5 x10^3/uL (0.0-1.1) Eosinophils # (Auto) 0.4 x10^3/uL (0.0-0.7) Basophils # (Auto) 0.1 x10^3/uL (0.0-0.2) Prothrombin Time 15.2 SEC (11.7-14.0) Prothromb Time International Ratio 1.2 (0.8-1.1) Activated Partial Thromboplast Time 39 SEC (24-38) Sodium Level 136 mmol/L (136-145) Potassium Level 5.4 mmol/L (3.5-5.1) Chloride Level 108 mmol/L (98-107) Carbon Dioxide Level 18 mmol/L (21-32) Anion Gap 10 (6-14) Blood Urea Nitrogen 32 mg/dL (8-26) Creatinine 4.4 mg/dL (0.7-1.3) Estimated GFR (Cockcroft-Gault) 17.1 BUN/Creatinine Ratio 7 (6-20) Glucose Level 165 mg/dL (70-99) Calcium Level 7.8 mg/dL (8.5-10.1) Magnesium Level 1.7 mg/dL (1.8-2.4) Total Bilirubin 0.2 mg/dL (0.2-1.0) Aspartate Amino Transf (AST/SGOT) 10 U/L (15-37) Alanine Aminotransferase (ALT/SGPT) 9 U/L (16-63) Alkaline Phosphatase 108 U/L (46-116) Troponin I Quantitative < 0.017 ng/mL (0.000-0.055) WK-[id number]-R-Type Natriuretic Peptide 3424 pg/mL (0-124) Total Protein 5.8 g/dL (6.4-8.2) Albumin 2.4 g/dL (3.4-5.0) Albumin/Globulin Ratio 0.7 (1.0-1.7) Lipase 48 U/L (73-393) Urine Collection Type Unknown Urine Color Yellow Urine Clarity Clear Urine pH 6.0 (<5.0-8.0) Urine Specific [place] 1.015 (1.000-1.030) Urine Protein >=300 mg/dL (NEG-TRACE) Urine Glucose (UA) Negative mg/dL (NEG) Urine Ketones (Stick) Negative mg/dL (NEG) Urine Blood Negative (NEG) Urine Nitrite Negative (NEG) Urine Bilirubin Negative (NEG) Urine Urobilinogen Dipstick 0.2 mg/dL (0.2 mg/dL) Urine Leukocyte Esterase Negative (NEG) Urine RBC 1-2 /HPF (0-2) Urine WBC 11-20 /HPF (0-4) Urine Squamous Epithelial Cells Occ /LPF Urine Bacteria 0 /HPF (0-FEW) Urine Mucus Slight /LPF Glucose (Fingerstick) 76 mg/dL (70-99) 254 mg/dL (70-99) Test 06/30/20 11:48 Glucose (Fingerstick) 270 mg/dL (70-99) Assessment/Plan Assessment/Plan IMP NEW ONSET ESRD ANEMIA ACUTE ON CHRONIC DIASTOLIC CHF MALIGNANT HTN-VOLUME DEPENDENT PARTLY ACUTE RESP FAILURE HX OF HTN HX OF DM II SUSPECT NON COMPLIANCE SECONDARY HYPERPARATHYROIDISM HX OF CAD AND TX HX OF PROSTATE CA AND RAD TX PLAN LUCHO NEEDED CONT HOME MEDS START BINDERS START RENAL MVI HE NEEDS TO START DIALYSIS WILL HAVE IR PLACE TUNNELED HD LINE HAVE ASKED PT TO BE SET UP AT [facility] FOR HD SUPPLEMENTAL O2 CARDIOLOGY EVALUATION PUI FOR COVID D/W ATTENDING SARAH VILLEGAS MD Jun 30, 2020 12:13
[2020-06-30 15:00] VITALS: BP 181/74
[2020-06-30] MEDS: CARVEDILOL 12.5 MG TABLET. PO SCH (17:17)
[2020-06-30 19:17] VITALS: BP 181/75
[2020-06-30] MEDS: cloNIDine HCL 0.1 MG TABLET PO PRN (19:30)
--- NOTE | 2020-06-30 19:35 | NUR ---
Assessment completed vss poc explained pt denied pain but c/o if indigestion will resume are and continue to monitor pt.
[2020-06-30] MEDS: MIRTAZAPINE 15 MG TABLET PO SCH (20:35)
[2020-06-30] MEDS: ATORVASTATIN CALCIUM 40 MG TABLET. PO SCH (20:37)
[2020-06-30 22:07] VITALS: BP 184/79
[2020-07-01] VITALS (9 sets, daily range): BP systolic 164–191; BP diastolic 70–93
[2020-07-01] MEDS: cloNIDine HCL 0.1 MG TABLET PO PRN ×2 (03:09→23:36)
[2020-07-01 05:50] LABS: BASO # 0.1 x10^3/uL (0.0-0.2); BASO % 1 % (0-3); EOS # 0.3 x10^3/uL (0.0-0.7); EOS % 4 % (0-3); HEMATOCRIT 24.3 % (39.0-53.0); HEMOGLOBIN 7.9 g/dL (13.0-17.5); LYMPH # 2.3 x10^3/uL (1.0-4.8); LYMPH % 27 % (24-48); MEAN CORPUSCULAR HEMOGLOBIN 27 pg (25-35); MEAN CORPUSCULAR HGB CONC 33 g/dL (31-37); MEAN CORPUSCULAR VOLUME 84 fL (79-100); MONO # 0.5 x10^3/uL (0.0-1.1); MONO % 6 % (0-9); NEUT # 5.4 x10^3/uL (1.8-7.7); NEUT % 63 % (31-73); PLATELET COUNT 281 x10^3/uL (140-400); RED BLOOD COUNT 2.92 x10^6/uL (4.30-5.70); RED CELL DISTRIBUTION WIDTH 19.3 % (11.5-14.5); WHITE BLOOD COUNT 8.6 x10^3/uL (4.0-11.0)
[2020-07-01 06:05] LABS: ALBUMIN/GLOBULIN RATIO 0.7 (1.0-1.7); CALCIUM 7.4 mg/dL (8.5-10.1); GFR 19.1; PHOSPHORUS 4.8 mg/dL (2.6-4.7); POTASSIUM 5.1 mmol/L (3.5-5.1); TOTAL BILIRUBIN 0.1 mg/dL (0.2-1.0)
[2020-07-01] MEDS: INSULIN LISPRO 300 UNITS/3 ML VIAL. SQ SCH ×3 (07:30→20:32)
[2020-07-01] MEDS: CARVEDILOL 12.5 MG TABLET. PO SCH ×2 (08:00→21:54)
[2020-07-01] MEDS: ASPIRIN ENTERIC COATED 81 MG TABLET.DR. PO SCH (08:57)
[2020-07-01] MEDS: amLODIPine BESYLATE 10 MG TABLET PO SCH (08:57)
[2020-07-01] MEDS: SODIUM BICARBONATE 650 MG TABLET. PO SCH ×2 (09:00→14:18)
[2020-07-01] MEDS: FERROUS SULFATE 325 MG TABLET. PO SCH ×2 (09:00→14:19)
--- NOTE | 2020-07-01 10:17 | PDOC ---
IM PROGRESS NOTES- Subjective Subjective No complaints of pain. Still has some dyspnea. Objective Vitals/I&O Vital Signs Date Time Temp Pulse Resp B/P (MAP) Pulse Ox O2 Delivery O2 Flow Rate FiO2 07/01/20 09:11 56 191/85 (120) 07/01/20 08:15 Nasal Cannula 2.0 07/01/20 07:00 97.9 16 97 97.9 I & O 06/30/20 06/30/20 07/01/20 15:00 23:00 07:00 Intake Total 600 ml 1600 ml Output Total 500 ml 700 ml 700 ml Balance 100 ml 900 ml -700 ml Physical Exam Physical Exam General appearance - alert,ill appearing, and in no distress and oriented to person, place, and time Mental Status - alert, oriented to person, place, and time, affect appropriate to mood Head - normal Chest -moderate tachypnea with decreased breath sounds at bases Heart - S1 and S2 normal Abdomen - soft, non tender Neurological - alert and oriented Extremities -3+ Labs Laboratory Tests Test 06/30/20 11:48 06/30/20 16:43 06/30/20 20:56 07/01/20 05:30 Glucose (Fingerstick) 270 mg/dL (70-99) H 157 mg/dL (70-99) H 130 mg/dL (70-99) H White Blood Count 8.6 x10^3/uL (4.0-11.0) Red Blood Count 2.92 x10^6/uL (4.30-5.70) L Hemoglobin 7.9 g/dL (13.0-17.5) L Hematocrit 24.3 % (39.0-53.0) L Mean Corpuscular Volume 84 fL (79-100) Mean Corpuscular Hemoglobin 27 pg (25-35) Mean Corpuscular Hemoglobin Concent 33 g/dL (31-37) Red Cell Distribution Width 19.3 % (11.5-14.5) H Platelet Count 281 x10^3/uL (140-400) Neutrophils (%) (Auto) 63 % (31-73) Lymphocytes (%) (Auto) 27 % (24-48) Monocytes (%) (Auto) 6 % (0-9) Eosinophils (%) (Auto) 4 % (0-3) H Basophils (%) (Auto) 1 % (0-3) Neutrophils # (Auto) 5.4 x10^3/uL (1.8-7.7) Lymphocytes # (Auto) 2.3 x10^3/uL (1.0-4.8) Monocytes # (Auto) 0.5 x10^3/uL (0.0-1.1) Eosinophils # (Auto) 0.3 x10^3/uL (0.0-0.7) Basophils # (Auto) 0.1 x10^3/uL (0.0-0.2) Sodium Level 135 mmol/L (136-145) L Potassium Level 5.1 mmol/L (3.5-5.1) Chloride Level 106 mmol/L (98-107) Carbon Dioxide Level 18 mmol/L (21-32) L Anion Gap 11 (6-14) Blood Urea Nitrogen 39 mg/dL (8-26) H Creatinine 4.0 mg/dL (0.7-1.3) H Estimated GFR (Cockcroft-Gault) 19.1 BUN/Creatinine Ratio 10 (6-20) Glucose Level 110 mg/dL (70-99) H Calcium Level 7.4 mg/dL (8.5-10.1) L Phosphorus Level 4.8 mg/dL (2.6-4.7) H Total Bilirubin 0.1 mg/dL (0.2-1.0) L Aspartate Amino Transferase (AST) 7 U/L (15-37) L Alanine Aminotransferase (ALT) 9 U/L (16-63) L Alkaline Phosphatase 91 U/L (46-116) Total Protein 5.0 g/dL (6.4-8.2) L Albumin 2.0 g/dL (3.4-5.0) L Albumin/Globulin Ratio 0.7 (1.0-1.7) L Test 07/01/20 08:05 Glucose (Fingerstick) 111 mg/dL (70-99) H Laboratory Tests 07/01/20 05:30 Laboratory Tests 07/01/20 05:30 Meds Current Medications Medications (Trade) Dose Ordered Sig/Ravinder Route PRN Reason Start Time Stop Time Status Last Admin Dose Admin Atorvastatin Calcium (Lipitor) 80 mg QHS PO 06/30/20 21:00 06/30/20 20:37 Carvedilol (Coreg) 25 mg BIDWMEALS PO 06/30/20 17:00 06/30/20 17:17 Mirtazapine (Remeron) 30 mg QHS PO 06/30/20 21:00 06/30/20 20:35 Insulin Human Lispro (HumaLOG) 0-10 UNITS TIDAC SQ 06/30/20 11:30 06/30/20 18:21 Acetaminophen (Tylenol) 650 mg PRN Q6HRS PRN PO MILD PAIN / TEMP > 100.3'F 06/30/20 10:30 06/30/20 11:12 Metoprolol Tartrate (Lopressor Vial) 10 mg 1X ONCE IVP 06/30/20 10:45 06/30/20 10:50 DC 06/30/20 11:13 Labetalol HCl (Normodyne Iv Push) 20 mg PRN Q2HR PRN IVP HYPERTENSION 06/30/20 12:00 06/30/20 13:38 Clonidine HCl (Catapres) 0.1 mg PRN Q4HRS PRN PO HYPERTENSION 06/30/20 19:30 07/01/20 03:09 Assessment Assessment 1. Acute pulmonary edema. 2. Acute respiratory failure. 3. Acute hypertensive crisis. 4. Acute renal failure with chronic kidney disease stage 4. 5. Chronic obstructive pulmonary disease. 6. 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 7. Coronary artery disease. 8. Chronic pancreatitis. 9. Anemia. 10. History of myocardial infarction. 11. 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 12. History of prostate cancer, treated with radiation therapy. PLAN: 1. For acute renal failure, consult Dr. Riddle for Nephrology evaluation and management. Placement of HD tunneled catheter and starting hemodialysis. 2. Hypertensive crisis, consult Dr. Kaur for Cardiology evaluation and management. I have resumed his home medications. I have also given him Lopressor 10 mg IV x 1 because there is a shortage of hydralazine. The patient may benefit from IV diuretics and/or dialysis. 3. Acute respiratory failure. Continue oxygenation. 4. Acute pulmonary edema. Resume medications. May need dialysis. 5. Diabetes mellitus with nephropathy and neuropathy. I will hold Lantus at this time and use sliding scale insulin twice a day only because of the renal failure. If the blood sugar remains high, then we will add more insulin. For details, please refer to the orders. 6. The patient also in isolation for suspicion for COVID infection and COVID-19 PCR test is pending. For details, please refer to the orders. Plan Plan For more details regarding further plans, please refer to the orders. Justifications for Admission Other Justification TRINA ALDANA MD Jul 01, 2020 10:17
--- NOTE | 2020-07-01 10:25 | NUR ---
SS following up with discharge planning. SS reviewed pt chart and discussed with pt RN. Pt is currently requiring oxygen. COVID19 test pending. Pt having tunneled cath placed today and will start dialysis later today. Pt will need dialysis referral and is requesting placement at [facility]. SS discussed with Dr. Riddle. SS currently awaiting COVID19 results and IR report and will proceed accordingly with discharge planning.
--- NOTE | 2020-07-01 10:33 | PDOC ---
Renal-Progress Notes Subjective Notes Notes STILL HAS SOME SOB History of Present Illness Hx of present illness STABLE Vitals Vitals Vital Signs Date Time Temp Pulse Resp B/P (MAP) Pulse Ox O2 Delivery O2 Flow Rate FiO2 07/01/20 09:11 56 191/85 (120) 07/01/20 08:15 Nasal Cannula 2.0 07/01/20 07:00 97.9 16 97 97.9 Weight Weight [ ] I.O. Intake and Output Intake and Output 07/01/20 07:00 Intake Total 2200 ml Output Total 1900 ml Balance 300 ml Intake Oral 2200 ml Output Urine Total 1900 ml Labs Labs Laboratory Tests Test 06/30/20 11:48 06/30/20 16:43 06/30/20 20:56 07/01/20 05:30 Glucose (Fingerstick) 270 mg/dL (70-99) 157 mg/dL (70-99) 130 mg/dL (70-99) White Blood Count 8.6 x10^3/uL (4.0-11.0) Red Blood Count 2.92 x10^6/uL (4.30-5.70) Hemoglobin 7.9 g/dL (13.0-17.5) Hematocrit 24.3 % (39.0-53.0) Mean Corpuscular Volume 84 fL (79-100) Mean Corpuscular Hemoglobin 27 pg (25-35) Mean Corpuscular Hemoglobin Concent 33 g/dL (31-37) Red Cell Distribution Width 19.3 % (11.5-14.5) Platelet Count 281 x10^3/uL (140-400) Neutrophils (%) (Auto) 63 % (31-73) Lymphocytes (%) (Auto) 27 % (24-48) Monocytes (%) (Auto) 6 % (0-9) Eosinophils (%) (Auto) 4 % (0-3) Basophils (%) (Auto) 1 % (0-3) Neutrophils # (Auto) 5.4 x10^3/uL (1.8-7.7) Lymphocytes # (Auto) 2.3 x10^3/uL (1.0-4.8) Monocytes # (Auto) 0.5 x10^3/uL (0.0-1.1) Eosinophils # (Auto) 0.3 x10^3/uL (0.0-0.7) Basophils # (Auto) 0.1 x10^3/uL (0.0-0.2) Sodium Level 135 mmol/L (136-145) Potassium Level 5.1 mmol/L (3.5-5.1) Chloride Level 106 mmol/L (98-107) Carbon Dioxide Level 18 mmol/L (21-32) Anion Gap 11 (6-14) Blood Urea Nitrogen 39 mg/dL (8-26) Creatinine 4.0 mg/dL (0.7-1.3) Estimated GFR (Cockcroft-Gault) 19.1 BUN/Creatinine Ratio 10 (6-20) Glucose Level 110 mg/dL (70-99) Calcium Level 7.4 mg/dL (8.5-10.1) Phosphorus Level 4.8 mg/dL (2.6-4.7) Total Bilirubin 0.1 mg/dL (0.2-1.0) Aspartate Amino Transf (AST/SGOT) 7 U/L (15-37) Alanine Aminotransferase (ALT/SGPT) 9 U/L (16-63) Alkaline Phosphatase 91 U/L (46-116) Total Protein 5.0 g/dL (6.4-8.2) Albumin 2.0 g/dL (3.4-5.0) Albumin/Globulin Ratio 0.7 (1.0-1.7) Test 07/01/20 08:05 Glucose (Fingerstick) 111 mg/dL (70-99) Micro Micro Microbiology 06/29/20 Urine Culture - Final, Complete Review of Systems Constitutional: yes: alert, oriented Eyes: Yes: no symptom reported Pulmonary: Yes dyspnea Cardiovascular: Yes edema Gastrointestional: Yes: nausea, constipation Genitourinary: Yes: no symptom reported Musculoskeletal: Yes: muscle stiffness Skin: Yes no symptom reported Psychiatric/Neurological: Yes: no symptom reported Endocrine: Yes: no symptom reported Physical Exam General Appearance: no apparent distress Skin: warm Respiratory: bilateral CTA Heart: S1S2 Abdomen: soft, bowel sounds present Genitourinary: bladder flat Extremities: edema Assessment Assessment IMP NEW ONSET ESRD ANEMIA ACUTE ON CHRONIC DIASTOLIC CHF MALIGNANT HTN-VOLUME DEPENDENT PARTLY ACUTE RESP FAILURE HX OF HTN HX OF DM II SUSPECT NON COMPLIANCE SECONDARY HYPERPARATHYROIDISM HX OF CAD AND GA HX OF PROSTATE CA AND RAD TX PLAN START ARANESP CHECK IRON CONT HOME MEDS STARTED BINDERS START RENAL MVI START ACTIVATED VIT D WILL ALSO START KWAN-I WILL HAVE IR PLACE TUNNELED HD LINE HAVE ASKED PT TO BE SET UP AT [facility] FOR HD SUPPLEMENTAL O2 CARDIOLOGY EVALUATION PUI FOR COVID D/W ATTENDING D/W SW HD TODAY UF ABOUT 2.5 LITERS QT 3 HRS BFR OF 300 SARAH VILLEGAS MD Jul 01, 2020 10:33
[2020-07-01] MEDS: SEVELAMER CARBONATE 800 MG TABLET. PO SCH ×2 (10:42→14:18)
[2020-07-01] MEDS: LISINOPRIL 20 MG TABLET PO SCH ×2 (11:00→21:00)
--- NOTE | 2020-07-01 11:00 | NUR ---
Nursing: Morning medications held, patient NPO for tunneled dialysis catheter placement. Blood pressure medications given. Coreg held because of heart rate in the 50's.
[2020-07-01] MEDS: ISOSORBIDE MONONITRATE ER 30 MG TAB.ER.24H PO SCH (11:22)
[2020-07-01] MEDS ORDERED: LIDOCAINE 1%/EPI 1:100,000 20 ML VIAL. ONE (13:03)
[2020-07-01] MEDS ORDERED: MIDAZOLAM HCL/PF 2 MG/2 ML VIAL. ONE ×2 (13:06→13:41)
[2020-07-01] MEDS ORDERED: fentaNYL PF VIAL 100 MCG/2 ML VIAL ONE (13:06)
[2020-07-01] MEDS ORDERED: ceFAZolin SODIUM IV Push 1 GM VIAL. IVP ONE ×2 (13:06→13:15)
[2020-07-01] MEDS ORDERED: MIDAZOLAM HCL/PF 2 MG/2 ML VIAL. IV ONE (13:15)
[2020-07-01] MEDS ORDERED: fentaNYL PF VIAL 100 MCG/2 ML VIAL IV ONE (13:15)
[2020-07-01] MEDS ORDERED: LIDOCAINE 1%/EPI 1:100,000 20 ML VIAL. SQ ONE (13:15)
--- NOTE | 2020-07-01 13:32 | RAD ---
Examination: XR CHEST 1V History: SOB Comparison/Correlation: 03/30/2020 Portable Chest X-ray Exam Findings: Portable upright frontal view of the chest was obtained. Heart size is within normal limits . No pneumothorax. Subtle interstitial thickening of the lung thompson again seen greater on the left. Mild left basilar retrocardiac linear atelectasis or scarring is present. Minimal left costophrenic s ignificant pleural effusion. Bony structures are unremarkable. Impression: Interstitial thickening of the lung thompson similar to the prior exam. No new focal infiltrate. Electronically signed by: Enoch Trujillo MD (07/01/2020 8:18 AM) [id number]
--- NOTE | 2020-07-01 14:06 | NUR ---
Nursing: Holding lisinopril at this time. Patient reports allergy. Will contact Dr. Valadez's office to see if allergy reaction is noted. Patient reported he knows he is allergic but cant remember why reaction he had.
[2020-07-01] MEDS: CALCITRIOL 0.25 MCG CAPSULE. PO SCH (14:17)
[2020-07-01] MEDS: FOLIC/VIT B COMP W-C (RENAL) TABLET. PO SCH (14:17)
[2020-07-01] MEDS: OMEGA-3 FATTY ACIDS/FISH OIL 1,000 MG CAPSULE. PO SCH (14:18)
[2020-07-01] MEDS: CYANOCOBALAMIN (VITAMIN B-12) 1,000 MCG TABLET. PO SCH (14:18)
[2020-07-01] MEDS: PANTOPRAZOLE 40 MG TABLET.DR. PO SCH (14:20)
[2020-07-01] MEDS: FOLIC ACID 1 MG TABLET. PO SCH (14:20)
--- NOTE | 2020-07-01 16:16 | NUR ---
SS following up with discharge planning. COVID19 negative. SS phoned and faxed referral for dialysis to [facility], ; fax [phone]. SS will continue to follow for discharge planning.
--- NOTE | 2020-07-01 16:22 | RAD ---
Procedure: Tunneled hemodialysis catheter placement 07/01/2020 2:18 PM Clinical Indication: NEW ESRD. PLACE TUNNELED HD CATHETER Sterility: All elements of maximal sterile barrier technique including the use of a cap, mask, sterile gown, sterile gloves, large sterile sheet, appropriate hand hygiene, and 2% chlorhexidine for cutaneous antisepsis (or acceptable alternative antiseptic per current guidelines) were followed for this procedure. Consent: The procedure was explained in its entirety to the patient or the patients designated technical sales representatives by a member of the treatment team, including a discussion of the risks, benefits and commonly accepted alternatives to the procedure, as well as the expected consequences of no therapy whatsoever. Discussion of the risks included, but was not limited to, those that are most frequent and those that are rare but possibly severe or life-threatening, as well as the possibility of unforeseen complications. Technique and Findings: Following informed consent, a timeout procedure was performed. The patient was prepped and draped in the usual sterile fashion. Ultrasound interrogation of the right neck revealed patency and compressibility of the right internal jugular vein. A 21-gauge micropuncture was then used to gain access to this vein under ultrasound guidance. A hard copy ultrasound image was recorded. The needle was exchanged over a wire for a 4 Syriac sheath which was used to guide an guidewire into the IVC. The skin over the right anterior chest wall was copiously anesthetized with 1% Lidocaine and a small dermatotomy was made. A 23 cm tipped cuff palindrome tunneled hemodialysis catheter was then tunneled subcutaneously towards the neck dermatotomy and deployed through a large caliber peel-away sheath under fluoroscopic guidance such that the distal tip resided in the mid right atrium. Manual flow rates were assessed and found to be within normal limits. The catheter was then flushed, packed with Heparin, capped, and sutured to the skin. The neck dermatotomy was closed with Dermabond. No immediate complications were identified. Sedation: Conscious sedation was administered for 30 minutes. The patient was monitored by a qualified independent observer throughout the time of sedation. Please refer to the medical record for exact doses of medications utilized to achieve moderate sedation. Fluoroscopy time: 1.2min Dose area product:: 3 Gycm2 Impression: Tunneled hemodialysis catheter placement as described
[2020-07-01] MEDS ORDERED: diphenhydrAMINE 50 MG/ML VIAL IV PRN ×2 (16:30)
[2020-07-01] MEDS ORDERED: IV NORMAL SALINE 1000ML BAG 1,000 ML IV PRN ×2 (16:30)
[2020-07-01] MEDS ORDERED: DIALYSIS PATIENT. MC PRN (16:30)
--- NOTE | 2020-07-01 16:48 | NUR ---
Have reviewed and agree with documentation completed by undergraduate internship and made changes as needed
[2020-07-01] MEDS ORDERED: HYDR-2763 PO (18:24)
[2020-07-01] MEDS: HYDROcodone/APAP 7.5/325MG 1 TAB TABLET PO PRN (19:23)
[2020-07-01] MEDS ORDERED: DARBEPOETIN ALFA 60 MCG/0.3 ML DISP.SYRIN. SQ SCH (21:00)
[2020-07-01] MEDS: MIRTAZAPINE 15 MG TABLET PO SCH (21:53)
[2020-07-01] MEDS: ATORVASTATIN CALCIUM 40 MG TABLET. PO SCH (21:53)
--- NOTE | 2020-07-01 22:53 | NUR ---
Patient transferred to [facility] at this time, belongings transferred with patient, room double checked by RN, no belongings left behind.
--- NOTE | 2020-07-01 23:31 | NUR ---
TRANSFER OF CARE NOTE:Pt transfer to room 206 per wheelchair at 2300,from 2s report given via telephone pt oriented to surroundings. Assessment completed vs obtained pt bp elevated will give prn clonidine. Assessment completed will resume care and continue to monitor pt.
[2020-07-02] MEDS: HYDROcodone/APAP 7.5/325MG 1 TAB TABLET PO PRN ×3 (01:26→16:09)
[2020-07-02 01:28] VITALS: BP 203/80
[2020-07-02 02:29] VITALS: BP 195/76
--- NOTE | 2020-07-02 05:00 | PDOC ---
CARDIOLOGY PROGRESS NOTE SUBJECTIVE: No acute events overnight. No chest pain, dyspnea persists. HD session started Patient is frustrated due to multiple procedures and HD sessions. OBJECTIVE: Vital Signs/I&O: Vital Signs Date Time Temp Pulse Resp B/P (MAP) Pulse Ox O2 Delivery O2 Flow Rate FiO2 07/02/20 02:29 98.6 69 20 195/76 (115) 93 Room Air 98.6 07/02/20 02:26 2.0 I & O 07/01/20 07/01/20 07/02/20 15:00 23:00 07:00 Intake Total 300 ml Output Total 325 ml 200 ml Balance -325 ml -200 ml 300 ml Objective: GEN.: No apparent distress. Alert and oriented. HEENT: Head is normocephalic, atraumatic NECK: Supple. LUNGS: Clear to auscultation. HEART: RRR, S1, S2 present. Peripheral pulses intact ABDOMEN: Soft, nontender. Positive bowel sounds. EXTREMITIES: Without any cyanosis. NEUROLOGIC: Normal speech, normal tone PSYCHIATRIC: Normal affect, normal mood. SKIN: No ulcerations *No changes CURRENT MEDICATIONS: Lisinopril 20mg bid - patient refused Coreg 25mg bid Amlodipine 10mg daily Imdur 60mg daily ASA 81mg daily Atorvastatin 80mg daily Hydralazine 100mg p.o tid DIAGNOSTIC TESTING: CXR reviewed Labs reviewed. ASSESSMENT: 1. Malignant HTN - due to ESRD 2. CAD - currently without angina. 3. Acute on chronic diastolic HF due to eSRD - EF 65% in 08/2019 4. Dyslipidemia. PLAN: 1. Patient is refusing lisinopril, consider cardura or clonidine for further BP mgmt, defer to Dr. Riddle. Alternatively, his BP may improve after several HD sessions. Nothing further to add from CV standpoint, outpt ischemic evaluation. Thanks. Justicifation of Admission Dx: Justifications for Admission: Justification of Admission Dx: N/A PETRA TELLEZ MD Jul 02, 2020 05:00
[2020-07-02] MEDS: PANTOPRAZOLE 40 MG TABLET.DR. PO SCH ×2 (06:37→11:56)
[2020-07-02 07:00] VITALS: BP 200/80
[2020-07-02] MEDS ORDERED: ALBUMIN HUMAN 25% 200 ML IV PRN (07:30)
[2020-07-02] MEDS: INSULIN LISPRO 300 UNITS/3 ML VIAL. SQ SCH ×3 (07:30→16:30)
[2020-07-02] MEDS ORDERED: IV NORMAL SALINE 1000ML BAG 1,000 ML IV PRN ×2 (07:30)
[2020-07-02 07:39] LABS: HEMATOCRIT 23.6 % (39.0-53.0); HEMOGLOBIN 7.9 g/dL (13.0-17.5); RED BLOOD COUNT 2.86 x10^6/uL (4.30-5.70); RED CELL DISTRIBUTION WIDTH 18.7 % (11.5-14.5); WHITE BLOOD COUNT 8.7 x10^3/uL (4.0-11.0)
[2020-07-02] MEDS: SEVELAMER CARBONATE 800 MG TABLET. PO SCH ×3 (08:00→17:55)
[2020-07-02 08:06] LABS: ALBUMIN 2.1 g/dL (3.4-5.0); ALBUMIN/GLOBULIN RATIO 0.7 (1.0-1.7); CALCIUM 7.6 mg/dL (8.5-10.1); GFR 26.6; POTASSIUM 4.3 mmol/L (3.5-5.1); TOTAL BILIRUBIN 0.1 mg/dL (0.2-1.0); TOTAL PROTEIN 5.2 g/dL (6.4-8.2)
[2020-07-02] MEDS ORDERED: DIALYSIS PATIENT. MC PRN ×2 (08:45)
[2020-07-02] MEDS: FERROUS SULFATE 325 MG TABLET. PO SCH ×2 (08:49→20:47)
[2020-07-02] MEDS: LISINOPRIL 20 MG TABLET PO SCH ×3 (09:00→20:59)
[2020-07-02] MEDS: CARVEDILOL 12.5 MG TABLET. PO SCH ×2 (09:02→17:55)
--- NOTE | 2020-07-02 10:02 | PDOC ---
IM PROGRESS NOTES- Subjective Subjective No complaints of pain. Dyspnea is improving. Blood pressure remains very high systolic 200. Objective Vitals/I&O Vital Signs Date Time Temp Pulse Resp B/P (MAP) Pulse Ox O2 Delivery O2 Flow Rate FiO2 07/02/20 09:02 67 208/72 07/02/20 08:49 17 96 Room Air 07/02/20 07:00 98.5 98.5 07/02/20 02:26 2.0 I & O0 07/01/20 07/01/20 07/02/20 15:00 23:00 07:00 Intake Total 400 ml Output Total 325 ml 200 ml 200 ml Balance -325 ml -200 ml 200 ml Physical Exam Physical Exam General appearance - alert,ill appearing, and in no distress and oriented to person, place, and time Mental Status - alert, oriented to person, place, and time, affect appropriate to mood Head - normal Chest -moderate tachypnea with decreased breath sounds at bases Heart - S1 and S2 normal Abdomen - soft, non tender Neurological - alert and oriented Extremities -2+ Labs Laboratory Tests Test 07/01/20 11:06 07/01/20 11:49 07/01/20 20:27 07/02/20 05:45 SARS-CoV-2 Antigen (Rapid) Negative (NEGATIVE) Glucose (Fingerstick) 118 mg/dL (70-99) H 151 mg/dL (70-99) H White Blood Count 8.7 x10^3/uL (4.0-11.0) Red Blood Count 2.86 x10^6/uL (4.30-5.70) L Hemoglobin 7.9 g/dL (13.0-17.5) L Hematocrit 23.6 % (39.0-53.0) L Mean Corpuscular Volume 83 fL (79-100) Mean Corpuscular Hemoglobin 28 pg (25-35) Mean Corpuscular Hemoglobin Concent 33 g/dL (31-37) Red Cell Distribution Width 18.7 % (11.5-14.5) H Platelet Count 259 x10^3/uL (140-400) Sodium Level 137 mmol/L (136-145) Potassium Level 4.3 mmol/L (3.5-5.1) Chloride Level 105 mmol/L (98-107) Carbon Dioxide Level 24 mmol/L (21-32) Anion Gap 8 (6-14) Blood Urea Nitrogen 28 mg/dL (8-26) H Creatinine 3.0 mg/dL (0.7-1.3) H Estimated GFR (Cockcroft-Gault) 26.6 BUN/Creatinine Ratio 9 (6-20) Glucose Level 194 mg/dL (70-99) H Calcium Level 7.6 mg/dL (8.5-10.1) L Iron Level 38 ug/dL (65-175) L Total Iron Binding Capacity 152 ug/dL (250-450) L Iron Saturation 25 % (15-34) Total Bilirubin 0.1 mg/dL (0.2-1.0) L Aspartate Amino Transferase (AST) 11 U/L (15-37) L Alanine Aminotransferase (ALT) 11 U/L (16-63) L Alkaline Phosphatase 96 U/L (46-116) Total Protein 5.2 g/dL (6.4-8.2) L Albumin 2.1 g/dL (3.4-5.0) L Albumin/Globulin Ratio 0.7 (1.0-1.7) L Laboratory Tests 07/02/20 05:45 Laboratory Tests 07/02/20 05:45 Meds Current Medications Medications (Trade) Dose Ordered Sig/Ravinder Route PRN Reason Start Time Stop Time Status Last Admin Dose Admin Vitamin B Complex/ Vitamin C (Pricila-Nicole) 1 tab DAILY PO 07/01/20 11:00 07/01/20 14:17 Sevelamer Carbonate (Renvela) 800 mg TIDWMEALS PO 07/01/20 12:00 07/01/20 14:18 Darbepoetin Jose (ARANESP for DIALYSIS PTS) 60 mcg Fr SQ 07/01/20 21:00 07/01/20 21:54 Calcitriol (Rocaltrol) 0.25 mcg DAILY PO 07/01/20 11:00 07/01/20 14:17 Midazolam HCl (Versed) 2 mg 1X ONCE IV 07/01/20 13:15 07/01/20 13:16 DC 07/01/20 13:29 Fentanyl Citrate (Fentanyl 2ml Vial) 100 mcg 1X ONCE IV 07/01/20 13:15 07/01/20 13:16 DC 07/01/20 13:29 Lidocaine/ Epinephrine (LIDOCAINE 1%-EPI 1:100,000 Multi-Dose) 20 ml 1X ONCE SQ 07/01/20 13:15 07/01/20 13:16 DC 07/01/20 13:39 Cefazolin Sodium (Ancef) 1 gm 1X ONCE IVP 07/01/20 13:15 07/01/20 13:16 DC 07/01/20 13:20 Acetaminophen/ Hydrocodone Bitart (Lortab 7.5/325) 1 tab PRN Q6HRS PRN PO PAIN 07/01/20 18:45 07/02/20 08:49 Assessment Assessment 1. Acute pulmonary edema. 2. Acute respiratory failure. 3. Acute hypertensive crisis. 4. Acute renal failure with chronic kidney disease stage 4. 5. Chronic obstructive pulmonary disease. 6. 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 7. Coronary artery disease. 8. Chronic pancreatitis. 9. Anemia. 10. History of myocardial infarction. 11. 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 12. History of prostate cancer, treated with radiation therapy. PLAN: 1. For acute renal failure, consult Dr. Riddle for Nephrology evaluation and management. Placement of HD tunneled catheter and starting hemodialysis. Creatinine has decreased to 3 2. Hypertensive crisis, consult Dr. Kaur for Cardiology evaluation and management. I have resumed his home medications. I have also given him Lopressor 10 mg IV x 1 because there is a shortage of hydralazine. Patient did not want lisinopril as recommended by Dr. Riddle. has recommended Cardura or clonidine. I will start him on Cardura. 3. Acute respiratory failure. Continue oxygenation. 4. Acute pulmonary edema. Clinically improving. 5. Diabetes mellitus with nephropathy and neuropathy. I will hold Lantus at this time and use sliding scale insulin twice a day only because of the renal failure. If the blood sugar remains high, then we will add more insulin. For details, please refer to the orders. 6. The patient also in isolation for suspicion for COVID infection and COVID-19 PCR test is negative. For details, please refer to the orders. The patient will need outpatient dialysis. He will be discharged on Saturday. Plan Plan For more details regarding further plans, please refer to the orders. Justifications for Admission Other Justification TRINA ALDANA MD Jul 02, 2020 10:02
[2020-07-02] MEDS: ASPIRIN ENTERIC COATED 81 MG TABLET.DR. PO SCH (11:53)
[2020-07-02] MEDS: DOXAZOSIN MESYLATE 1 MG TABLET. PO SCH (11:54)
[2020-07-02] MEDS: OMEGA-3 FATTY ACIDS/FISH OIL 1,000 MG CAPSULE. PO SCH (11:55)
[2020-07-02] MEDS: FOLIC ACID 1 MG TABLET. PO SCH (11:55)
[2020-07-02] MEDS: FOLIC/VIT B COMP W-C (RENAL) TABLET. PO SCH (11:56)
[2020-07-02] MEDS: CYANOCOBALAMIN (VITAMIN B-12) 1,000 MCG TABLET. PO SCH (11:56)
[2020-07-02] MEDS: CALCITRIOL 0.25 MCG CAPSULE. PO SCH (11:56)
[2020-07-02] MEDS: SODIUM BICARBONATE 650 MG TABLET. PO SCH ×2 (11:56→20:48)
[2020-07-02] MEDS: amLODIPine BESYLATE 10 MG TABLET PO SCH (11:58)
[2020-07-02] MEDS: ISOSORBIDE MONONITRATE ER 30 MG TAB.ER.24H PO SCH (11:59)
[2020-07-02 14:15] VITALS: BP 185/84
[2020-07-02] MEDS: cloNIDine HCL 0.1 MG TABLET PO PRN (15:03)
--- NOTE | 2020-07-02 15:32 | PDOC ---
Renal-Progress Notes Subjective Notes Notes FEELING BETTER History of Present Illness Hx of present illness STABLE Vitals Vitals Vital Signs Date Time Temp Pulse Resp B/P (MAP) Pulse Ox O2 Delivery O2 Flow Rate FiO2 07/02/20 15:03 74 185/84 07/02/20 14:15 97.6 19 95 Room Air 97.6 07/02/20 02:26 2.0 Weight Weight [ ] I.O. Intake and Output Intake and Output 07/02/20 07:00 Intake Total 400 ml Output Total 725 ml Balance -325 ml Intake Oral 400 ml Output Urine Total 725 ml Labs Labs Laboratory Tests Test 07/01/20 20:27 07/02/20 05:45 07/02/20 11:09 Glucose (Fingerstick) 151 mg/dL (70-99) 160 mg/dL (70-99) White Blood Count 8.7 x10^3/uL (4.0-11.0) Red Blood Count 2.86 x10^6/uL (4.30-5.70) Hemoglobin 7.9 g/dL (13.0-17.5) Hematocrit 23.6 % (39.0-53.0) Mean Corpuscular Volume 83 fL (79-100) Mean Corpuscular Hemoglobin 28 pg (25-35) Mean Corpuscular Hemoglobin Concent 33 g/dL (31-37) Red Cell Distribution Width 18.7 % (11.5-14.5) Platelet Count 259 x10^3/uL (140-400) Sodium Level 137 mmol/L (136-145) Potassium Level 4.3 mmol/L (3.5-5.1) Chloride Level 105 mmol/L (98-107) Carbon Dioxide Level 24 mmol/L (21-32) Anion Gap 8 (6-14) Blood Urea Nitrogen 28 mg/dL (8-26) Creatinine 3.0 mg/dL (0.7-1.3) Estimated GFR (Cockcroft-Gault) 26.6 BUN/Creatinine Ratio 9 (6-20) Glucose Level 194 mg/dL (70-99) Calcium Level 7.6 mg/dL (8.5-10.1) Iron Level 38 ug/dL (65-175) Total Iron Binding Capacity 152 ug/dL (250-450) Iron Saturation 25 % (15-34) Total Bilirubin 0.1 mg/dL (0.2-1.0) Aspartate Amino Transf (AST/SGOT) 11 U/L (15-37) Alanine Aminotransferase (ALT/SGPT) 11 U/L (16-63) Alkaline Phosphatase 96 U/L (46-116) Total Protein 5.2 g/dL (6.4-8.2) Albumin 2.1 g/dL (3.4-5.0) Albumin/Globulin Ratio 0.7 (1.0-1.7) Micro Micro Microbiology 06/29/20 Urine Culture - Final, Complete Review of Systems Constitutional: yes: alert, oriented Eyes: Yes: no symptom reported Pulmonary: Yes dyspnea Cardiovascular: Yes edema Gastrointestional: Yes: nausea, constipation Genitourinary: Yes: no symptom reported Musculoskeletal: Yes: muscle stiffness Skin: Yes no symptom reported Psychiatric/Neurological: Yes: no symptom reported Endocrine: Yes: no symptom reported Physical Exam General Appearance: no apparent distress Skin: warm Respiratory: bilateral CTA Heart: S1S2 Abdomen: soft, bowel sounds present Genitourinary: bladder flat Extremities: edema Assessment Assessment IMP NEW ONSET ESRD ANEMIA ACUTE ON CHRONIC DIASTOLIC CHF MALIGNANT HTN-VOLUME DEPENDENT PARTLY ACUTE RESP FAILURE HX OF HTN HX OF DM II SUSPECT NON COMPLIANCE SECONDARY HYPERPARATHYROIDISM HX OF CAD AND LA HX OF PROSTATE CA AND RAD TX PLAN CARDURA STARTED STARTED BINDERS STARTED RENAL MVI STARTED ACTIVATED VIT D CONT KWAN-I WILL HAVE IR PLACE TUNNELED HD LINE HAVE ASKED PT TO BE SET UP AT [facility] FOR HD SUPPLEMENTAL O2 CARDIOLOGY EVALUATION D/W ATTENDING D/W SW HD AGAIN TODAY UF ABOUT 2.5 LITERS QT 3 HRS BFR OF 300 D/C PROB SATURDAY WHEN OP HD SET UP SARAH VILLEGAS MD Jul 02, 2020 15:32
[2020-07-02] MEDS ORDERED: CALCIUM CARBONATE 500 MG TAB.CHEW PO PRN (19:15)
[2020-07-02 19:35] VITALS: BP 170/63
[2020-07-02] MEDS: ATORVASTATIN CALCIUM 40 MG TABLET. PO SCH (20:47)
[2020-07-02] MEDS: MIRTAZAPINE 15 MG TABLET PO SCH (20:47)
[2020-07-02] MEDS ORDERED: INSULIN LISPRO 300 UNITS/3 ML VIAL. SQ ONE (21:15)
[2020-07-02] MEDS: traZODone 50 MG TABLET. PO PRN (21:23)
[2020-07-02 23:25] VITALS: BP 182/67
[2020-07-03 02:50] VITALS: BP 179/69
[2020-07-03 07:15] VITALS: BP 184/74
[2020-07-03] MEDS: INSULIN LISPRO 300 UNITS/3 ML VIAL. SQ SCH ×3 (07:30→17:04)
[2020-07-03] MEDS: LISINOPRIL 20 MG TABLET PO SCH (08:07)
[2020-07-03] MEDS: FERROUS SULFATE 325 MG TABLET. PO SCH ×2 (08:10→21:00)
[2020-07-03] MEDS: OMEGA-3 FATTY ACIDS/FISH OIL 1,000 MG CAPSULE. PO SCH (08:10)
[2020-07-03] MEDS: HYDROcodone/APAP 7.5/325MG 1 TAB TABLET PO PRN ×2 (08:10→21:01)
[2020-07-03] MEDS: FOLIC/VIT B COMP W-C (RENAL) TABLET. PO SCH (08:10)
[2020-07-03] MEDS: SODIUM BICARBONATE 650 MG TABLET. PO SCH ×2 (08:10→21:00)
[2020-07-03] MEDS: CALCITRIOL 0.25 MCG CAPSULE. PO SCH (08:10)
[2020-07-03] MEDS: SEVELAMER CARBONATE 800 MG TABLET. PO SCH ×3 (08:10→16:59)
[2020-07-03] MEDS: FOLIC ACID 1 MG TABLET. PO SCH (08:10)
[2020-07-03] MEDS: CARVEDILOL 12.5 MG TABLET. PO SCH ×2 (08:11→16:59)
[2020-07-03] MEDS: ASPIRIN ENTERIC COATED 81 MG TABLET.DR. PO SCH (08:11)
[2020-07-03] MEDS: PANTOPRAZOLE 40 MG TABLET.DR. PO SCH (08:11)
[2020-07-03] MEDS: CYANOCOBALAMIN (VITAMIN B-12) 1,000 MCG TABLET. PO SCH (08:11)
[2020-07-03] MEDS: DOXAZOSIN MESYLATE 1 MG TABLET. PO SCH ×2 (08:11→11:47)
[2020-07-03] MEDS: amLODIPine BESYLATE 10 MG TABLET PO SCH (08:12)
[2020-07-03] MEDS: ISOSORBIDE MONONITRATE ER 30 MG TAB.ER.24H PO SCH (08:13)
[2020-07-03 09:19] LABS: ALBUMIN 2.2 g/dL (3.4-5.0); ALBUMIN/GLOBULIN RATIO 0.7 (1.0-1.7); CALCIUM 7.9 mg/dL (8.5-10.1); CREATININE 3.3 mg/dL (0.7-1.3); GFR 23.8; POTASSIUM 4.3 mmol/L (3.5-5.1); TOTAL BILIRUBIN 0.2 mg/dL (0.2-1.0); TOTAL PROTEIN 5.5 g/dL (6.4-8.2)
--- NOTE | 2020-07-03 10:07 | PDOC ---
PROGRESS NOTES Date of Service: DATE: 07/03/20 TIME: 10:05 Subjective Subjective no new problems Objective Objective Vital Signs Date Time Temp Pulse Resp B/P (MAP) Pulse Ox O2 Delivery O2 Flow Rate FiO2 07/03/20 09:11 16 95 Room Air 07/03/20 08:13 61 184/74 07/03/20 07:15 97.7 2.0 97.7 Intake and Output 07/03/20 07:00 Intake Total 650 ml Balance 650 ml Intake Oral 650 ml # Voids 3 Physical Exam Abdomen: Normal bowel sounds, Soft Heart: Regular rate, Other (POS S4) Extremities: No clubbing General: Alert, Oriented X3, Cooperative, mild distress HEENT: Atraumatic, PERRLA, EOMI Lungs: Other (BASILAR RALES) MUSCULOSKELETAL: No joint tenderness, No deformity, No muscular tenderness noted Neuro: Normal speech, Sensation intact Psych/Mental Status: Mental status NL, Mood NL Skin: No breakdown Diagnosis Problem List Problems Medical Problems: (1) Accelerated hypertension Status: Acute (2) Acute on chronic renal failure Status: Acute (3) Acute respiratory failure with hypoxia Status: Acute (4) Chronic anemia Status: Acute (5) Hyperkalemia Status: Acute (6) Volume overload Status: Acute Assessment Assessment ESRD new , started on dialysis. 1. Acute pulmonary edema. 2. Acute respiratory failure. 3. Acute hypertensive crisis. 4. Acute renal failure with chronic kidney disease stage 4. 5. Chronic obstructive pulmonary disease. 6. 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 7. Coronary artery disease. 8. Chronic pancreatitis. 9. Anemia. 10. History of myocardial infarction. 11. 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 12. History of prostate cancer, treated with radiation therapy. PLAN:dialysis tomorrow. no new problems. labs reviewed meds reviewed. 1. For acute renal failure, consult Dr. Riddle for Nephrology evaluation and management. Placement of HD tunneled catheter and starting hemodialysis. Creatinine has decreased to 3 2. Hypertensive crisis, consult Dr. Kaur for Cardiology evaluation and management. I have resumed his home medications. I have also given him Lopressor 10 mg IV x 1 because there is a shortage of hydralazine. Patient did not want lisinopril as recommended by Dr. Riddle. has recommended Cardura or clonidine. I will start him on Cardura. 3. Acute respiratory failure. Continue oxygenation. 4. Acute pulmonary edema. Clinically improving. 5. Diabetes mellitus with nephropathy and neuropathy. I will hold Lantus at this time and use sliding scale insulin twice a day only because of the renal failure. If the blood sugar remains high, then we will add more insulin. For details, please refer to the orders. 6. The patient also in isolation for suspicion for COVID infection and COVID-19 PCR test is negative. For details, please refer to the orders. The patient will need outpatient dialysis. He will be discharged on Saturday. Plan Plan of Care Problems Medical Problems: (1) Accelerated hypertension Status: Acute (2) Acute on chronic renal failure Status: Acute (3) Acute respiratory failure with hypoxia Status: Acute (4) Chronic anemia Status: Acute (5) Hyperkalemia Status: Acute (6) Volume overload Status: Acute Comment Review of Relevant I have reviewed the following items donell (where applicable) has been applied. Labs Laboratory Tests Test 07/02/20 11:09 07/02/20 16:46 07/02/20 20:53 07/03/20 02:56 Glucose (Fingerstick) 160 mg/dL (70-99) 338 mg/dL (70-99) 320 mg/dL (70-99) 179 mg/dL (70-99) Test 07/03/20 07:30 07/03/20 08:30 Glucose (Fingerstick) 155 mg/dL (70-99) Sodium Level 136 mmol/L (136-145) Potassium Level 4.3 mmol/L (3.5-5.1) Chloride Level 103 mmol/L (98-107) Carbon Dioxide Level 29 mmol/L (21-32) Anion Gap 4 (6-14) Blood Urea Nitrogen 19 mg/dL (8-26) Creatinine 3.3 mg/dL (0.7-1.3) Estimated GFR (Cockcroft-Gault) 23.8 BUN/Creatinine Ratio 6 (6-20) Glucose Level 203 mg/dL (70-99) Calcium Level 7.9 mg/dL (8.5-10.1) Total Bilirubin 0.2 mg/dL (0.2-1.0) Aspartate Amino Transf (AST/SGOT) 16 U/L (15-37) Alanine Aminotransferase (ALT/SGPT) 15 U/L (16-63) Alkaline Phosphatase 98 U/L (46-116) Total Protein 5.5 g/dL (6.4-8.2) Albumin 2.2 g/dL (3.4-5.0) Albumin/Globulin Ratio 0.7 (1.0-1.7) Microbiology 06/29/20 Urine Culture - Final, Complete Medications Current Medications Calcium Carbonate/ Glycine (Tums) 1,000 mg PRN AFTMEALHC PRN PO INDIGESTION; Start 07/02/20 at 19:15 Insulin Human Lispro (HumaLOG) 6 units 1X ONCE SQ Last administered on at 21:48; Start 07/02/20 at 21:15; Stop 07/02/20 at 21:16; Status DC Trazodone HCl (Desyrel) 50 mg PRN QHS PRN PO INSOMNIA Last administered on 07/02/20at 21:23; Start 07/02/20 at 21:15 Vitals/I & O Vital Sign - Last 24 Hours 07/02/20 07/02/20 07/02/20 07/02/20 10:44 11:54 11:57 11:58 Pulse 67 67 67 Resp 16 B/P (MAP) 208/72 208/72 208/72 Pulse Ox 96 O2 Delivery Room Air 07/02/20 07/02/20 07/02/20 07/02/20 11:59 14:15 15:02 15:03 Temp 97.6 97.6 Pulse 67 74 74 74 Resp 19 B/P (MAP) 208/72 185/84 (117) 185/84 185/84 Pulse Ox 95 O2 Delivery Room Air 07/02/20 07/02/20 07/02/20 07/02/20 16:09 17:09 17:55 19:35 Temp 98.8 98.8 Pulse 74 64 Resp 18 18 18 B/P (MAP) 185/84 170/63 (98) Pulse Ox 91 O2 Delivery Room Air Room Air 07/02/20 07/02/20 07/02/20 07/03/20 19:37 20:48 23:25 02:50 Temp 98.9 98.5 98.9 98.5 Pulse 57 67 58 Resp 18 17 B/P (MAP) 170/63 182/67 (105) 179/69 (105) Pulse Ox 91 85 O2 Delivery Room Air Nasal Cannula Room Air O2 Flow Rate 2.0 07/03/20 07/03/20 07/03/20 07/03/20 03:00 07:15 07:30 08:07 Temp 97.7 97.7 Pulse 61 61 Resp 18 B/P (MAP) 184/74 (110) 184/74 Pulse Ox 92 95 O2 Delivery Nasal Cannula Nasal Cannula Room Air O2 Flow Rate 2.0 2.0 07/03/20 07/03/20 07/03/20 07/03/20 08:10 08:11 08:11 08:12 Pulse 61 61 61 B/P (MAP) 184/74 184/74 184/74 Pulse Ox 95 O2 Delivery Room Air 07/03/20 07/03/20 07/03/20 08:12 08:13 09:11 Pulse 61 61 Resp 16 B/P (MAP) 184/74 184/74 Pulse Ox 95 O2 Delivery Room Air Intake and Output 07/02/20 07/02/20 07/03/20 15:00 23:00 07:00 Intake Total 200 ml 450 ml Balance 200 ml 450 ml Justifications for Admission Other Justification INÉS WALTER MD Jul 03, 2020 10:07
--- NOTE | 2020-07-03 11:09 | PDOC ---
Renal-Progress Notes Subjective Notes Notes NO NEW COMPLAINTS History of Present Illness Hx of present illness STABLE Vitals Vitals Vital Signs Date Time Temp Pulse Resp B/P (MAP) Pulse Ox O2 Delivery O2 Flow Rate FiO2 07/03/20 09:11 16 95 Room Air 07/03/20 08:13 61 184/74 07/03/20 07:15 97.7 2.0 97.7 Weight Weight [ ] I.O. Intake and Output Intake and Output 07/03/20 07:00 Intake Total 650 ml Balance 650 ml Intake Oral 650 ml # Voids 3 Labs Labs Laboratory Tests Test 07/02/20 11:09 07/02/20 16:46 07/02/20 20:53 07/03/20 02:56 Glucose (Fingerstick) 160 mg/dL (70-99) 338 mg/dL (70-99) 320 mg/dL (70-99) 179 mg/dL (70-99) Test 07/03/20 07:30 07/03/20 08:30 Glucose (Fingerstick) 155 mg/dL (70-99) Sodium Level 136 mmol/L (136-145) Potassium Level 4.3 mmol/L (3.5-5.1) Chloride Level 103 mmol/L (98-107) Carbon Dioxide Level 29 mmol/L (21-32) Anion Gap 4 (6-14) Blood Urea Nitrogen 19 mg/dL (8-26) Creatinine 3.3 mg/dL (0.7-1.3) Estimated GFR (Cockcroft-Gault) 23.8 BUN/Creatinine Ratio 6 (6-20) Glucose Level 203 mg/dL (70-99) Calcium Level 7.9 mg/dL (8.5-10.1) Total Bilirubin 0.2 mg/dL (0.2-1.0) Aspartate Amino Transf (AST/SGOT) 16 U/L (15-37) Alanine Aminotransferase (ALT/SGPT) 15 U/L (16-63) Alkaline Phosphatase 98 U/L (46-116) Total Protein 5.5 g/dL (6.4-8.2) Albumin 2.2 g/dL (3.4-5.0) Albumin/Globulin Ratio 0.7 (1.0-1.7) Micro Micro Microbiology 06/29/20 Urine Culture - Final, Complete Review of Systems Constitutional: yes: alert, oriented Eyes: Yes: no symptom reported Pulmonary: Yes dyspnea Cardiovascular: Yes edema Gastrointestional: Yes: nausea, constipation Genitourinary: Yes: no symptom reported Musculoskeletal: Yes: muscle stiffness Skin: Yes no symptom reported Psychiatric/Neurological: Yes: no symptom reported Endocrine: Yes: no symptom reported Physical Exam General Appearance: no apparent distress Skin: warm Respiratory: bilateral CTA Heart: S1S2 Abdomen: soft, bowel sounds present Genitourinary: bladder flat Extremities: edema Assessment Assessment IMP NEW ONSET ESRD ANEMIA ACUTE ON CHRONIC DIASTOLIC CHF MALIGNANT HTN-VOLUME DEPENDENT PARTLY ACUTE RESP FAILURE HX OF HTN HX OF DM II SUSPECT NON COMPLIANCE SECONDARY HYPERPARATHYROIDISM HX OF CAD AND [place] HX OF PROSTATE CA AND RAD TX PLAN INCREASE CARDURA STARTED BINDERS STARTED RENAL MVI STARTED ACTIVATED VIT D CONT KWAN-I WILL HAVE IR PLACE TUNNELED HD LINE HAVE ASKED PT TO BE SET UP AT [facility] FOR HD SUPPLEMENTAL O2 CARDIOLOGY EVALUATION D/W ATTENDING D/W SW HD AGAIN TODAY UF ABOUT 2.5 LITERS QT 3 HRS BFR OF 300 D/C PROB SATURDAY WHEN OP HD SET UP SARAH VILLEGAS MD Jul 03, 2020 11:09
[2020-07-03 11:11] VITALS: BP 191/75
--- NOTE | 2020-07-03 12:06 | PDOC ---
CARDIOLOGY PROGRESS NOTE SUBJECTIVE: Better spirits today. No new issues. OBJECTIVE: Vital Signs/I&O: Vital Signs Date Time Temp Pulse Resp B/P (MAP) Pulse Ox O2 Delivery O2 Flow Rate FiO2 07/03/20 11:47 58 191/75 07/03/20 11:11 98.8 20 91 Room Air 98.8 07/03/20 07:15 2.0 I & O 07/02/20 07/02/20 07/03/20 15:00 23:00 07:00 Intake Total 200 ml 450 ml Balance 200 ml 450 ml Objective: No changes CURRENT MEDICATIONS: Current Medications Medications (Trade) Dose Ordered Sig/Ravinder Route PRN Reason Start Time Stop Time Status Last Admin Dose Admin Trazodone HCl (Desyrel) 50 mg PRN QHS PRN PO INSOMNIA 07/02/20 21:15 07/02/20 21:23 Insulin Human Lispro (HumaLOG) 6 units 1X ONCE SQ 07/02/20 21:15 07/02/20 21:16 DC 07/02/20 21:48 Doxazosin Mesylate (Cardura) 4 mg DAILY PO 07/03/20 11:15 07/03/20 11:47 DIAGNOSTIC TESTING: labs reviewed. Labs: Laboratory Tests 07/03/20 08:30 Laboratory Tests Test 07/02/20 16:46 07/02/20 20:53 07/03/20 02:56 07/03/20 07:30 Glucose (Fingerstick) 338 mg/dL (70-99) H 320 mg/dL (70-99) H 179 mg/dL (70-99) H 155 mg/dL (70-99) H Test 07/03/20 08:30 Sodium Level 136 mmol/L (136-145) Potassium Level 4.3 mmol/L (3.5-5.1) Chloride Level 103 mmol/L (98-107) Carbon Dioxide Level 29 mmol/L (21-32) Anion Gap 4 (6-14) L Blood Urea Nitrogen 19 mg/dL (8-26) Creatinine 3.3 mg/dL (0.7-1.3) H Estimated GFR (Cockcroft-Gault) 23.8 BUN/Creatinine Ratio 6 (6-20) Glucose Level 203 mg/dL (70-99) H Calcium Level 7.9 mg/dL (8.5-10.1) L Total Bilirubin 0.2 mg/dL (0.2-1.0) Aspartate Amino Transf (AST/SGOT) 16 U/L (15-37) Alkaline Phosphatase 98 U/L (46-116) Total Protein 5.5 g/dL (6.4-8.2) L Albumin 2.2 g/dL (3.4-5.0) L Albumin/Globulin Ratio 0.7 (1.0-1.7) L ASSESSMENT: 1. ESRD 2. HTN 3. Acute on chronic diastolic HF PLAN: 1. Continue current meds including asa, statin, coreg, hydralazine, imdur, cardura and amlodipine. Supportive care. Outpt stress testing. Thanks Justicifation of Admission Dx: Justifications for Admission: Justification of Admission Dx: N/A PETRA TELLEZ MD Jul 03, 2020 12:05
[2020-07-03 15:30] VITALS: BP 122/59
[2020-07-03 19:08] VITALS: BP 158/66
[2020-07-03] MEDS: ATORVASTATIN CALCIUM 40 MG TABLET. PO SCH (20:59)
[2020-07-03] MEDS: MIRTAZAPINE 15 MG TABLET PO SCH (21:00)
[2020-07-03] MEDS: traZODone 50 MG TABLET. PO PRN (21:00)
[2020-07-03 22:22] VITALS: BP 124/61
[2020-07-04 02:47] VITALS: BP 170/65
[2020-07-04 07:00] VITALS: BP 183/76
[2020-07-04] MEDS: INSULIN LISPRO 300 UNITS/3 ML VIAL. SQ SCH ×2 (07:30→11:30)
[2020-07-04 07:45] LABS: BASO # 0.1 x10^3/uL (0.0-0.2); BASO % 1 % (0-3); EOS # 0.4 x10^3/uL (0.0-0.7); EOS % 4 % (0-3); HEMATOCRIT 25.1 % (39.0-53.0); HEMOGLOBIN 8.1 g/dL (13.0-17.5); LYMPH # 2.1 x10^3/uL (1.0-4.8); LYMPH % 22 % (24-48); MEAN CORPUSCULAR HEMOGLOBIN 27 pg (25-35); MEAN CORPUSCULAR HGB CONC 32 g/dL (31-37); MEAN CORPUSCULAR VOLUME 85 fL (79-100); MONO # 0.9 x10^3/uL (0.0-1.1); MONO % 9 % (0-9); NEUT # 6.3 x10^3/uL (1.8-7.7); NEUT % 64 % (31-73); PLATELET COUNT 268 x10^3/uL (140-400); RED BLOOD COUNT 2.96 x10^6/uL (4.30-5.70); RED CELL DISTRIBUTION WIDTH 19.5 % (11.5-14.5); WHITE BLOOD COUNT 9.9 x10^3/uL (4.0-11.0)
[2020-07-04] MEDS ORDERED: IV NORMAL SALINE 1000ML BAG 1,000 ML IV PRN ×2 (07:45)
[2020-07-04] MEDS ORDERED: DIALYSIS PATIENT. MC PRN (07:45)
[2020-07-04] MEDS: SEVELAMER CARBONATE 800 MG TABLET. PO SCH ×2 (08:00→11:43)
[2020-07-04 08:09] LABS: ALBUMIN 2.1 g/dL (3.4-5.0); ALBUMIN/GLOBULIN RATIO 0.7 (1.0-1.7); CALCIUM 7.8 mg/dL (8.5-10.1); CREATININE 3.9 mg/dL (0.7-1.3); GFR 19.7; POTASSIUM 4.3 mmol/L (3.5-5.1); TOTAL BILIRUBIN 0.2 mg/dL (0.2-1.0); TOTAL PROTEIN 5.3 g/dL (6.4-8.2)
[2020-07-04] MEDS ORDERED: DOXA4TAB3 PO (09:53)
[2020-07-04] MEDS ORDERED: CALC0.25 PO (09:53)
[2020-07-04] MEDS ORDERED: SEVE800T9 PO (09:53)
--- NOTE | 2020-07-04 09:56 | DISCH ---
DISCHARGE INSTRUCTIONS Condition on Discharge Condition on Discharge: Stable Activity After Discharge Activity Instructions for Disc: Activity as tolerated Weight Bearing Status after Di: As tolerated Diet after Discharge Diet after Discharge: Renal Dialysis (ADA) Additional Diet Restrictions: resume home diet Diet Texture: Regular Liquid Texture: Thin Liquid Swallowing Supervision: None needed Wound Incision Care Wound/Incision Care: No wound care needed Checks after Discharge Checks after discharge: Check blood press - daily, Check blood sugar, ac/hs Contacting the DRPaige after DC Call your doctor for: Concerns you may have Follow-Up Follow up with: Dr.Pratip Aldana in 5 days Follow Up With: /Dialysis/Rn Navigator Treatment/Equipment after DC Adaptive Equipment Issued: None TRINA ALDANA MD Jul 04, 2020 09:56
[2020-07-04] MEDS ORDERED: INSULIN GLARGINE SYRINGE. SQ SCH (10:00)
--- NOTE | 2020-07-04 10:01 | PDOC3 ---
IM DISCHARGE SUMMARY Date of Admission Date of Admission Date of Admission: Jun 29, 2020 at 20:04 Date of Discharge Date of Discharge July 04, 2020 Primary Diagnosis Primary Diagnosis 1. Acute pulmonary edema. 2. Acute respiratory failure. 3. Acute hypertensive crisis. 4. Acute renal failure with chronic kidney disease stage 4. 5. Chronic obstructive pulmonary disease. 6. 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 7. Coronary artery disease. 8. Chronic pancreatitis. 9. Anemia. 10. History of myocardial infarction. 11. 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 12. History of prostate cancer, treated with radiation therapy. PLAN: 1. For acute renal failure, consult Dr. Riddle for Nephrology evaluation and management. Placement of HD tunneled catheter and starting hemodialysis. Creatinine has decreased to 3 2. Hypertensive crisis, consult Dr. Kaur for Cardiology evaluation and management. I have resumed his home medications. I have also given him Lopressor 10 mg IV x 1 because there is a shortage of hydralazine. Patient did not want lisinopril as recommended by Dr. Riddle. has recommended Cardura or clonidine. I will start him on Cardura. 3. Acute respiratory failure. Continue oxygenation. 4. Acute pulmonary edema. Clinically improving. 5. Diabetes mellitus with nephropathy and neuropathy. I will hold Lantus at this time and use sliding scale insulin twice a day only because of the renal failure. If the blood sugar remains high, then we will add more insulin. For details, please refer to the orders. 6. The patient also in isolation for suspicion for COVID infection and COVID-19 PCR test is negative. For details, please refer to the orders. The patient will need outpatient dialysis. He will be discharged on Saturday. Consults Consults Nicolas Rome MD; Luh Garcia MD Procedures Procedures Tunneled HD catheter Labs Labs Laboratory Tests Test 07/03/20 11:46 07/03/20 16:58 07/03/20 20:28 07/04/20 07:15 Glucose (Fingerstick) 225 mg/dL (70-99) H 238 mg/dL (70-99) H 238 mg/dL (70-99) H 196 mg/dL (70-99) H Test 07/04/20 07:17 White Blood Count 9.9 x10^3/uL (4.0-11.0) Red Blood Count 2.96 x10^6/uL (4.30-5.70) L Hemoglobin 8.1 g/dL (13.0-17.5) L Hematocrit 25.1 % (39.0-53.0) L Mean Corpuscular Volume 85 fL (79-100) Mean Corpuscular Hemoglobin 27 pg (25-35) Mean Corpuscular Hemoglobin Concent 32 g/dL (31-37) Red Cell Distribution Width 19.5 % (11.5-14.5) H Platelet Count 268 x10^3/uL (140-400) Neutrophils (%) (Auto) 64 % (31-73) Lymphocytes (%) (Auto) 22 % (24-48) L Monocytes (%) (Auto) 9 % (0-9) Eosinophils (%) (Auto) 4 % (0-3) H Basophils (%) (Auto) 1 % (0-3) Neutrophils # (Auto) 6.3 x10^3/uL (1.8-7.7) Lymphocytes # (Auto) 2.1 x10^3/uL (1.0-4.8) Monocytes # (Auto) 0.9 x10^3/uL (0.0-1.1) Eosinophils # (Auto) 0.4 x10^3/uL (0.0-0.7) Basophils # (Auto) 0.1 x10^3/uL (0.0-0.2) Sodium Level 135 mmol/L (136-145) L Potassium Level 4.3 mmol/L (3.5-5.1) Chloride Level 103 mmol/L (98-107) Carbon Dioxide Level 27 mmol/L (21-32) Anion Gap 5 (6-14) L Blood Urea Nitrogen 24 mg/dL (8-26) Creatinine 3.9 mg/dL (0.7-1.3) H Estimated GFR (Cockcroft-Gault) 19.7 BUN/Creatinine Ratio 6 (6-20) Glucose Level 176 mg/dL (70-99) H Calcium Level 7.8 mg/dL (8.5-10.1) L Total Bilirubin 0.2 mg/dL (0.2-1.0) Aspartate Amino Transferase (AST) 15 U/L (15-37) Alanine Aminotransferase (ALT) 17 U/L (16-63) Alkaline Phosphatase 99 U/L (46-116) Total Protein 5.3 g/dL (6.4-8.2) L Albumin 2.1 g/dL (3.4-5.0) L Albumin/Globulin Ratio 0.7 (1.0-1.7) L Laboratory Tests 07/04/20 07:17 Laboratory Tests 07/04/20 07:17 Brief hospital course Brief hospital course This 54-year-old -[place] male who was recently admitted in 08/2019 because of acute pulmonary edema and worsening renal failure, started having symptoms of dyspnea and fluid retention, gradually getting worse. Especially in the last 2-3 days, his symptoms are much worse and he was very short of breath, lightheaded and had significant increase in the swelling in the last 2 days. In the office, the patient has been seen in the last 2 weeks and his baseline creatinine, that is around 3.12, had increased to 3.96. Lasix was increased because of the worsening swelling of the legs. The patient was seen in the Emergency Room and is noted to have acute pulmonary edema and acute respiratory failure and hypertensive crisis. The patient's creatinine also increased to 4.4. Sodium is 136, potassium 5.4, CO2 of 18, BUN 32, glucose 165, magnesium 1.7, albumin 2.4, lipase 48, AST 10, ALT 9. BNP is 3424. Troponin less than 0.017. Glucose 76 and 254. INR is 1.2. WBC count 9.2 and hemoglobin 8.4. Urinalysis is negative. Chest x-ray shows interstitial bibasilar airspace disease, may be related to pulmonary edema or atypical infectious process. For more details regarding the past history, family history, social history, surgical history and other details, please refer to History and Physical. 1. For acute renal failure, consult Dr. Riddle for Nephrology evaluation and management. Placement of HD tunneled catheter and starting hemodialysis. Creatinine has decreased to 3 2. Hypertensive crisis, consult Dr. Kaur for Cardiology evaluation and management. I have resumed his home medications. I have also given him Lopressor 10 mg IV x 1 because there is a shortage of hydralazine. Patient did not want lisinopril as recommended by Dr. Riddle. He will be discharged on Cardura 4 mg daily. He will have an outpatient stress test. 3. Acute respiratory failure. Continue oxygenation. 4. Acute pulmonary edema. Clinically improving. 5. Diabetes mellitus with nephropathy and neuropathy. I will hold Lantus at this time and use sliding scale insulin twice a day only because of the renal failure. I will restart him on low-dose Lantus 6 units daily. He used to take much higher dose at home. Continue sliding scale insulin as at home. 6. The patient also in isolation for suspicion for COVID infection and COVID-19 PCR test is negative. For details, please refer to the orders. He is responding to dialysis and his blood pressures are coming down and his dyspnea is better. The patient will need outpatient dialysis. He will be discharged home today. Medications Current Medications Medications (Trade) Dose Ordered Sig/Ravinder Route PRN Reason Start Time Stop Time Status Last Admin Dose Admin Doxazosin Mesylate (Cardura) 4 mg DAILY PO 07/03/20 11:15 07/03/20 11:47 Medications reviewed and reconciled for discharge. Allergy Allergies Coded Allergies Type Severity Reaction Last Updated Verified morphine Allergy Intermediate Itching 06/29/20 Yes lisinopril Allergy Unknown Dry Cough 07/03/20 Yes Follow up in 5 days. DISPOSITION: Home Comments Discharge Management - 35 minutes. For other details please refer to discharge instructions Justicifation of Admission Dx: Justifications for Admission: Justification of Admission Dx: N/A TRINA ALDANA MD Jul 04, 2020 10:01
[2020-07-04] MEDS ORDERED: INSU100V8 SQ (10:04)
--- NOTE | 2020-07-04 10:11 | NUR ---
SS following up with discharge planning. SS reviewed pt chart and discussed with pt RN. Pt is currently on room air. COVID19 negative. Pt is new ESRD. SS phoned and faxed referral to [facility], ; fax [phone], on 07/01/2020. Dr. Riddle and pt requesting placement at [facility], ; fax [phone]. SS received phone contact from [facility] requesting additional flow sheets. SS faxed requested documentation. SS currently awaiting confirmed chair time at this time. Discharge order on the chart. SS will continue to follow for discharge planning.
--- NOTE | 2020-07-04 10:13 | PDOC ---
DATE OF SERVICE DATE: 07/04/20 TIME: 10:05 SUBJECTIVE ROS Seen on HD, no complaints, comfortable OBJECTIVE Vital Signs Vital Signs Date Time Temp Pulse Resp B/P (MAP) Pulse Ox O2 Delivery O2 Flow Rate FiO2 07/04/20 07:00 98.3 60 16 183/76 (111) 92 Room Air 98.3 07/03/20 22:22 2.0 I & 0 Intake and Output 07/04/20 07:00 Intake Total 1480 ml Output Total 250 ml Balance 1230 ml Intake Oral 1480 ml Output Urine Total 250 ml # Voids 1 PHYSICAL EXAM Physical Exam General: Alert, Oriented X3, Cooperative, mild distress HEENT: Atraumatic, PERRLA, EOMI Heart: Regular rate, Other (POS S4) Extremities: No clubbing Lungs: decreased at bases, non labored Abdomen: Normal bowel sounds, Soft MUSCULOSKELETAL: No joint tenderness, No deformity, No muscular tenderness noted Neuro: Normal speech, Sensation intact Psych/Mental Status: Mental status NL, Mood NL Skin: No breakdown DIAGNOSIS/ASSESSMENT Assessment & Plan New Onset ESRD - initiated on HD , he has been following with me as OP Seen on Dialysis , ttolerating well, continue as ordered, Smooth Slater Awaiting OP chair time , access Tunnelled HDC Anemia - stable , started on Procrit as OP Acute on chronic Diastolic CHF Malignanat HTN - partly Vol Dependent,Cardura Increased , Continue antihypertensives Renal Doppler in Aug 2019, No e/o JOSELYN Acute Resp failure- Resolved Sec Hyperpara- Currently on Binders DM II HX of CAD and NE HX of Prostates Cancer s/p Radiation treatment COMMENT/RELEVANT DATA Meds Current Medications Medications (Trade) Dose Ordered Sig/Ravinder Start Time Stop Time Status Last Admin Dose Admin Acetaminophen (Tylenol) 650 mg PRN Q6HRS PRN 06/30/20 10:30 06/30/20 11:12 650 MG Acetaminophen/ Hydrocodone Bitart (Lortab 7.5/325) 1 tab PRN Q6HRS PRN 07/01/20 18:45 07/03/20 21:01 1 TAB Albumin Human 200 ml @ 200 mls/hr 1X PRN PRN 07/02/20 07:30 07/02/20 13:29 DC Amlodipine Besylate (Norvasc) 10 mg DAILY 06/30/20 09:00 07/03/20 08:12 10 MG Aspirin (Ecotrin) 81 mg DAILY 06/30/20 09:00 07/03/20 08:11 81 MG Atorvastatin Calcium (Lipitor) 80 mg QHS 06/30/20 21:00 07/03/20 20:59 80 MG Calcitriol (Rocaltrol) 0.25 mcg DAILY 07/01/20 11:00 07/03/20 08:10 0.25 MCG Calcium Carbonate/ Glycine (Tums) 1,000 mg PRN AFTMEALHC PRN 07/02/20 19:15 Carvedilol (Coreg) 25 mg BIDWMEALS 06/30/20 17:00 07/03/20 16:59 25 MG Cefazolin Sodium (Ancef) 1 gm 1X ONCE 07/01/20 13:15 07/01/20 13:16 DC 07/01/20 13:20 1 GM Clonidine HCl (Catapres) 0.1 mg PRN Q4HRS PRN 06/30/20 19:30 07/02/20 15:03 0.1 MG Cyanocobalamin (Vitamin B-12) 2,500 mcg DAILY 06/30/20 09:00 07/03/20 08:11 2,500 MCG Darbepoetin Jose (ARANESP for DIALYSIS PTS) 60 mcg Fr 07/01/20 21:00 07/01/20 21:54 60 MCG Dextrose (Dextrose 50%-Water Syringe) 25 gm 1X ONCE 06/29/20 20:30 06/29/20 20:31 DC 06/29/20 20:50 25 GM Diphenhydramine HCl (Benadryl) 25 mg 1X PRN PRN 07/01/20 16:30 07/02/20 16:29 DC Doxazosin Mesylate (Cardura) 4 mg DAILY 07/03/20 11:15 07/03/20 11:47 4 MG Fentanyl Citrate (Fentanyl 2ml Vial) 100 mcg 1X ONCE 07/01/20 13:15 07/01/20 13:16 DC 07/01/20 13:29 75 MCG Ferrous Sulfate (Feosol) 325 mg BID 06/30/20 09:00 07/03/20 21:00 325 MG Fish Oil (Fish Oil) 1,000 mg DAILY 06/30/20 09:00 07/03/20 08:10 1,000 MG Folic Acid (Folic Acid) 1 mg DAILY 06/30/20 09:00 07/03/20 08:10 1 MG Furosemide (Lasix) 40 mg 1X ONCE 06/29/20 18:15 06/29/20 18:16 DC 06/29/20 19:45 40 MG Hydralazine HCl (Apresoline) 100 mg TID 06/30/20 09:00 07/03/20 20:59 100 MG Hydromorphone HCl (Dilaudid) 1 mg 1X ONCE 06/29/20 18:15 06/29/20 18:19 DC 06/29/20 19:44 1 MG Info (PHARMACY MONITORING -- do not chart) 1 each PRN DAILY PRN 07/04/20 07:45 Insulin Glargine (Lantus Syringe) 6 unit DAILY10 07/04/20 10:00 Insulin Human Lispro (HumaLOG) 6 units 1X ONCE 07/02/20 21:15 07/02/20 21:16 DC 07/02/20 21:48 6 UNITS Insulin Human Regular (HumuLIN R VIAL) 10 unit 1X ONCE 06/29/20 20:30 06/29/20 20:31 DC 06/29/20 20:52 10 UNIT Isosorbide Mononitrate (Imdur) 60 mg DAILY 06/30/20 09:00 07/03/20 08:13 60 MG Labetalol HCl (Normodyne Iv Push) 20 mg PRN Q2HR PRN 06/30/20 12:00 06/30/20 13:38 20 MG Lidocaine/ Epinephrine (LIDOCAINE 1%-EPI 1:100,000 Multi-Dose) 20 ml 1X ONCE 07/01/20 13:15 07/01/20 13:16 DC 07/01/20 13:39 17 ML Lisinopril (Prinivil) 20 mg BID 07/01/20 11:00 07/03/20 18:43 DC Metoprolol Tartrate (Lopressor Vial) 10 mg 1X ONCE 06/30/20 10:45 06/30/20 10:50 DC 06/30/20 11:13 10 MG Midazolam HCl (Versed) 2 mg STK-MED ONCE 07/01/20 13:41 07/01/20 13:41 DC Mirtazapine (Remeron) 30 mg QHS 06/30/20 21:00 07/03/20 21:00 30 MG Nitroglycerin (Nitro-Bid Oint) 1 inch 1X ONCE 06/29/20 18:15 06/29/20 18:16 DC 06/29/20 19:45 1 INCH Pantoprazole Sodium (Protonix) 40 mg DAILYAC 06/30/20 08:30 07/03/20 08:11 40 MG Sevelamer Carbonate (Renvela) 800 mg TIDWMEALS 07/01/20 12:00 07/03/20 16:59 800 MG Sodium Bicarbonate (Sodium Bicarbonate) 650 mg BID 06/30/20 09:00 07/03/20 21:00 650 MG Sodium Chloride 1,000 ml @ 400 mls/hr Q2H30M PRN 07/04/20 07:45 07/04/20 19:44 Trazodone HCl (Desyrel) 50 mg PRN QHS PRN 07/02/20 21:15 07/03/20 21:00 50 MG Vitamin B Complex/ Vitamin C (Pricila-Nicole) 1 tab DAILY 07/01/20 11:00 07/03/20 08:10 1 TAB Lab Laboratory Tests Test 07/03/20 11:46 07/03/20 16:58 07/03/20 20:28 07/04/20 07:15 Glucose (Fingerstick) 225 mg/dL (70-99) 238 mg/dL (70-99) 238 mg/dL (70-99) 196 mg/dL (70-99) Test 07/04/20 07:17 White Blood Count 9.9 x10^3/uL (4.0-11.0) Red Blood Count 2.96 x10^6/uL (4.30-5.70) Hemoglobin 8.1 g/dL (13.0-17.5) Hematocrit 25.1 % (39.0-53.0) Mean Corpuscular Volume 85 fL (79-100) Mean Corpuscular Hemoglobin 27 pg (25-35) Mean Corpuscular Hemoglobin Concent 32 g/dL (31-37) Red Cell Distribution Width 19.5 % (11.5-14.5) Platelet Count 268 x10^3/uL (140-400) Neutrophils (%) (Auto) 64 % (31-73) Lymphocytes (%) (Auto) 22 % (24-48) Monocytes (%) (Auto) 9 % (0-9) Eosinophils (%) (Auto) 4 % (0-3) Basophils (%) (Auto) 1 % (0-3) Neutrophils # (Auto) 6.3 x10^3/uL (1.8-7.7) Lymphocytes # (Auto) 2.1 x10^3/uL (1.0-4.8) Monocytes # (Auto) 0.9 x10^3/uL (0.0-1.1) Eosinophils # (Auto) 0.4 x10^3/uL (0.0-0.7) Basophils # (Auto) 0.1 x10^3/uL (0.0-0.2) Sodium Level 135 mmol/L (136-145) Potassium Level 4.3 mmol/L (3.5-5.1) Chloride Level 103 mmol/L (98-107) Carbon Dioxide Level 27 mmol/L (21-32) Anion Gap 5 (6-14) Blood Urea Nitrogen 24 mg/dL (8-26) Creatinine 3.9 mg/dL (0.7-1.3) Estimated GFR (Cockcroft-Gault) 19.7 BUN/Creatinine Ratio 6 (6-20) Glucose Level 176 mg/dL (70-99) Calcium Level 7.8 mg/dL (8.5-10.1) Total Bilirubin 0.2 mg/dL (0.2-1.0) Aspartate Amino Transf (AST/SGOT) 15 U/L (15-37) Alanine Aminotransferase (ALT/SGPT) 17 U/L (16-63) Alkaline Phosphatase 99 U/L (46-116) Total Protein 5.3 g/dL (6.4-8.2) Albumin 2.1 g/dL (3.4-5.0) Albumin/Globulin Ratio 0.7 (1.0-1.7) Results All relevant outside records, renal labs, imaging studies, telemetry/EKG's were reviewed. Justicifation of Admission Dx: Justifications for Admission: Justification of Admission Dx: N/A CARLO CHAUHAN MD Jul 04, 2020 10:13
--- NOTE | 2020-07-04 10:27 | PDOC ---
PRESTON CALABRESE DESIGN TEACHER 07/04/20 1027: CARDIO Progress Notes Date and Time Date of Service 07/04/20 Time of Evaluation 1020 Subjective Subjective: No Chest Pain, No shortness of breath, Other (seen on HD) Vitals Vitals Vital Signs Date Time Temp Pulse Resp B/P (MAP) Pulse Ox O2 Delivery O2 Flow Rate FiO2 07/04/20 07:00 98.3 60 16 183/76 (111) 92 Room Air 98.3 07/03/20 22:22 2.0 Weight Weight [ ] Input and Output Intake and Output Intake and Output 07/04/20 07:00 Intake Total 1480 ml Output Total 250 ml Balance 1230 ml Intake Oral 1480 ml Output Urine Total 250 ml # Voids 1 Laboratory Labs Laboratory Tests Test 07/03/20 11:46 07/03/20 16:58 07/03/20 20:28 07/04/20 07:15 Glucose (Fingerstick) 225 mg/dL (70-99) 238 mg/dL (70-99) 238 mg/dL (70-99) 196 mg/dL (70-99) Test 07/04/20 07:17 White Blood Count 9.9 x10^3/uL (4.0-11.0) Red Blood Count 2.96 x10^6/uL (4.30-5.70) Hemoglobin 8.1 g/dL (13.0-17.5) Hematocrit 25.1 % (39.0-53.0) Mean Corpuscular Volume 85 fL (79-100) Mean Corpuscular Hemoglobin 27 pg (25-35) Mean Corpuscular Hemoglobin Concent 32 g/dL (31-37) Red Cell Distribution Width 19.5 % (11.5-14.5) Platelet Count 268 x10^3/uL (140-400) Neutrophils (%) (Auto) 64 % (31-73) Lymphocytes (%) (Auto) 22 % (24-48) Monocytes (%) (Auto) 9 % (0-9) Eosinophils (%) (Auto) 4 % (0-3) Basophils (%) (Auto) 1 % (0-3) Neutrophils # (Auto) 6.3 x10^3/uL (1.8-7.7) Lymphocytes # (Auto) 2.1 x10^3/uL (1.0-4.8) Monocytes # (Auto) 0.9 x10^3/uL (0.0-1.1) Eosinophils # (Auto) 0.4 x10^3/uL (0.0-0.7) Basophils # (Auto) 0.1 x10^3/uL (0.0-0.2) Sodium Level 135 mmol/L (136-145) Potassium Level 4.3 mmol/L (3.5-5.1) Chloride Level 103 mmol/L (98-107) Carbon Dioxide Level 27 mmol/L (21-32) Anion Gap 5 (6-14) Blood Urea Nitrogen 24 mg/dL (8-26) Creatinine 3.9 mg/dL (0.7-1.3) Estimated GFR (Cockcroft-Gault) 19.7 BUN/Creatinine Ratio 6 (6-20) Glucose Level 176 mg/dL (70-99) Calcium Level 7.8 mg/dL (8.5-10.1) Total Bilirubin 0.2 mg/dL (0.2-1.0) Aspartate Amino Transf (AST/SGOT) 15 U/L (15-37) Alanine Aminotransferase (ALT/SGPT) 17 U/L (16-63) Alkaline Phosphatase 99 U/L (46-116) Total Protein 5.3 g/dL (6.4-8.2) Albumin 2.1 g/dL (3.4-5.0) Albumin/Globulin Ratio 0.7 (1.0-1.7) Microbiology Micro Microbiology 06/29/20 Urine Culture - Final, Complete Review of Systems Constitutional: yes: alert, oriented Eyes: Yes: no symptom reported Pulmonary: Yes dyspnea Cardiovascular: Yes edema Gastrointestional: Yes: nausea, constipation Genitourinary: Yes: no symptom reported Musculoskeletal: Yes: muscle stiffness Skin: Yes no symptom reported Psychiatric/Neurological: Yes: no symptom reported Endocrine: Yes: no symptom reported Physical Exam HEENT: Neck Supple W Full Motion Chest: Symmetric LUNGS: Clear to Auscultation Heart: RRR Abdomen: Soft N/T Extremities: No Calf Tenderness Neurology: alert, oriented, follow commands Assessment Assessment 1. Acute respiratory failure secondary to a/c CHF 2. Acute on chronic diastolic CHF: Echo 09/10 with preserved LV systolic function 3. CKD, now ESRD. HD initiated 4. HTN 5, Diabetes, II Recommendations Continue current meds including asa, statin, coreg, hydralazine, imdur, cardura and amlodipine. Fluid offloading via HD Outpatient ischemic evaluation with stress as arranged Follow up in clinic with Dr. Rome as scheduled. Justicifation of Admission Dx: Justifications for Admission: Justification of Admission Dx: N/A PETRA ROME MD 07/05/20 0949: PRESTON CALABRESE APRN Jul 04, 2020 10:27 PETRA ROME MD Jul 05, 2020 09:49
[2020-07-04 11:34] VITALS: BP 203/96
[2020-07-04] MEDS: ASPIRIN ENTERIC COATED 81 MG TABLET.DR. PO SCH (11:39)
[2020-07-04] MEDS: FOLIC ACID 1 MG TABLET. PO SCH (11:39)
[2020-07-04] MEDS: OMEGA-3 FATTY ACIDS/FISH OIL 1,000 MG CAPSULE. PO SCH (11:39)
[2020-07-04] MEDS: FOLIC/VIT B COMP W-C (RENAL) TABLET. PO SCH (11:39)
[2020-07-04] MEDS: FERROUS SULFATE 325 MG TABLET. PO SCH (11:39)
[2020-07-04] MEDS: SODIUM BICARBONATE 650 MG TABLET. PO SCH (11:40)
[2020-07-04] MEDS: PANTOPRAZOLE 40 MG TABLET.DR. PO SCH (11:40)
[2020-07-04] MEDS: ISOSORBIDE MONONITRATE ER 30 MG TAB.ER.24H PO SCH (11:40)
[2020-07-04] MEDS: amLODIPine BESYLATE 10 MG TABLET PO SCH (11:41)
[2020-07-04] MEDS: CARVEDILOL 12.5 MG TABLET. PO SCH (11:41)
[2020-07-04] MEDS: CYANOCOBALAMIN (VITAMIN B-12) 1,000 MCG TABLET. PO SCH (11:41)
[2020-07-04] MEDS: DOXAZOSIN MESYLATE 1 MG TABLET. PO SCH (11:42)
[2020-07-04] MEDS: CALCITRIOL 0.25 MCG CAPSULE. PO SCH (11:42)
--- NOTE | 2020-07-04 11:42 | NUR ---
SS following up with discharge planning. SS received phone contact from [facility] with confirmed chair time at [facility], [address] [place] [address], [place] [address], ; fax [phone], Saturday, Saturday, and Saturday at 1630. SS was notified that pt's first chair time is scheduled for 07/06/2020, at 1615. Pt and pt's RN notified. Discharge order on the chart.
[2020-07-04] MEDS: HYDROcodone/APAP 7.5/325MG 1 TAB TABLET PO PRN (11:48)
[2020-07-04 14:46] VITALS: BP 143/52
--- NOTE | 2020-07-04 15:28 | NUR ---
DISCHARGE INSTRUCTIONS AND FOLLOW UP WITH CARDIOLOGY DISCUSSED WITH PATIENT. PATIENT INFORMED OF [facility] CHAIR TIME AT [facility] [address] [facility] ON SATURDAY AT 1615. PATIENTS IV REMOVED AND TELE MONITOR OFF. PATIENT STABLE AT TIME OF DISCHARGE WITH NO QUESTIONS. NEW MEDICATIONS TRANSCRIBED TO PHARMACY ON FILE. PATIENT ESCORTED PER WHEELCHAIR BY RN.
== END 2020-07-04 15:30 | disposition home or self-care (01) | DRG 673 ==
LOC: ER 17:39 → 2 SOUTH 20:04 → 2 NORTH 07-01 23:21
PROVIDERS: ADMIT Internal Medicine; ATTEND Internal Medicine
PROC: 0JH63XZ Insertion of Tunneled Vascular Access Device into Chest Subcutaneous Tissue and Fascia, Percutaneous Approach (ICD-10-PCS; principal; 2020-07-01)
PROC: 02H633Z Insertion of Infusion Device into Right Atrium, Percutaneous Approach (ICD-10-PCS; 2020-07-01)
PROC: B548ZZA Ultrasonography of Superior Vena Cava, Guidance (ICD-10-PCS; 2020-07-01)
PROC: 5A1D70Z Performance of Urinary Filtration, Intermittent, Less than 6 Hours Per Day (ICD-10-PCS; 2020-07-01)
PROC: 5A1D70Z Performance of Urinary Filtration, Intermittent, Less than 6 Hours Per Day (ICD-10-PCS; 2020-07-02)
PROC: 5A1D70Z Performance of Urinary Filtration, Intermittent, Less than 6 Hours Per Day (ICD-10-PCS; 2020-07-04)
DX: N17.9 Acute kidney failure, unspecified (principal); I50.33 Acute on chronic diastolic (congestive) heart failure; J96.01 Acute respiratory failure with hypoxia; I13.2 Hypertensive heart and chronic kidney disease with heart failure and with stage 5 chronic kidney disease, or end stage renal disease; K86.1 Other chronic pancreatitis; I16.9 Hypertensive crisis, unspecified; N18.6 End stage renal disease; N25.81 Secondary hyperparathyroidism of renal origin; J44.9 Chronic obstructive pulmonary disease, unspecified; I25.10 Atherosclerotic heart disease of native coronary artery without angina pectoris; E87.5 Hyperkalemia; E78.5 Hyperlipidemia, unspecified; E78.00 Pure hypercholesterolemia, unspecified; E11.40 Type 2 diabetes mellitus with diabetic neuropathy, unspecified; D64.9 Anemia, unspecified; R19.7 Diarrhea, unspecified; M19.90 Unspecified osteoarthritis, unspecified site; K21.9 Gastro-esophageal reflux disease without esophagitis; F41.9 Anxiety disorder, unspecified; E11.22 Type 2 diabetes mellitus with diabetic chronic kidney disease; E11.21 Type 2 diabetes mellitus with diabetic nephropathy; Z20.828 Contact with and (suspected) exposure to other viral communicable diseases; Z95.5 Presence of coronary angioplasty implant and graft; Z92.3 Personal history of irradiation; Z90.49 Acquired absence of other specified parts of digestive tract; Z87.891 Personal history of nicotine dependence; Z85.46 Personal history of malignant neoplasm of prostate; Z83.3 Family history of diabetes mellitus; Z82.49 Family history of ischemic heart disease and other diseases of the circulatory system; Z80.9 Family history of malignant neoplasm, unspecified; Z79.4 Long term (current) use of insulin; I25.2 Old myocardial infarction; Z79.899 Other long term (current) drug therapy; Z88.5 Allergy status to narcotic agent
CPT/HCPCS: 36415; 36558; 71045; 76937; 77001; 80053; 81001; 82962; 83540; 83550; 83690; 83735; 83880; 84100; 84484; 85025; 85027; 85610; 85730; 86317; 86704; 86706; 87086; 87340; 87426; 93005; 94618; 96374; 96375; 99152; 99153; C1750; C1892; J0690; J0882; J1170; J1815; J1940; J2250; J3010; J3490; U0003; 99285-25; G0378

== ENCOUNTER → 2021-01-10 | Outpatient (CLI) | payer BC ==
[2020-12-17 12:10] VITALS: BP 165/64
[~2021-01-10] MED LIST changes: +CALC0.25 PO; +CARV25TA2 PO; +CYAN25008 PO; +DOXA4TAB3 PO; +FERR220S8 PO; +FOLI0.4T5 PO; +FOLI0.8T3 PO; +GEMF600T20 PO; -GEMF600T8 PO; +HYDR-2763 PO; +HYDR100T24 PO; +INSU100V35 SQ; +INSU100V8 SQ; -ISOS30TA4 PO; +ISOS30TA68 PO; +MIRT30TA93 PO; +OMEG100021 PO; +PANT20TA2 PO; +SEVE800T9 PO; +SODI650T PO
[2021-01-10 14:53] LABS: BASO # 0.1 x10^3/uL (0.0-0.2); BASO % 1 % (0-3); EOS # 0.1 x10^3/uL (0.0-0.7); EOS % 1 % (0-3); HEMATOCRIT 32.2 % (39.0-53.0); HEMOGLOBIN 10.6 g/dL (13.0-17.5); LYMPH # 1.4 x10^3/uL (1.0-4.8); LYMPH % 18 % (24-48); MEAN CORPUSCULAR HEMOGLOBIN 29 pg (25-35); MEAN CORPUSCULAR HGB CONC 33 g/dL (31-37); MEAN CORPUSCULAR VOLUME 86 fL (79-100); MONO # 0.5 x10^3/uL (0.0-1.1); MONO % 6 % (0-9); NEUT # 5.7 x10^3/uL (1.8-7.7); NEUT % 73 % (31-73); PLATELET COUNT 301 x10^3/uL (140-400); RED BLOOD COUNT 3.73 x10^6/uL (4.30-5.70); RED CELL DISTRIBUTION WIDTH 16.8 % (11.5-14.5); WHITE BLOOD COUNT 7.7 x10^3/uL (4.0-11.0)
[2021-01-10 15:10] LABS: CALCIUM 8.1 mg/dL (8.5-10.1); CREATININE 4.5 mg/dL (0.7-1.3); GFR 16.6; POTASSIUM 4.2 mmol/L (3.5-5.1)
== END ==
LOC: LAB 14:21
DX: I10 Essential (primary) hypertension (principal); I25.10 Atherosclerotic heart disease of native coronary artery without angina pectoris
CPT/HCPCS: 36415; 80048; 85025

== ENCOUNTER → 2021-01-31 | Outpatient (CLI) | payer BC ==
[2020-12-17 12:10] VITALS: BP 165/64
[~2021-01-31] MED LIST changes: +IOHEXOL 180 MG/ML 10 ML VIAL. ONE; +methylPREDNISolone ACETATE 40 MG/ML VIAL. ONE; +methylPREDNISolone ACETATE 80 MG/ML VIAL. ONE
--- NOTE | 2021-01-31 12:36 | PDOC1 ---
INITIAL PAIN CONSULT DATE OF SERVICE: DOS: DATE: 01/31/21 TIME: 12:29 CHIEF COMPLAINT: Chief Complaint: Neck and right upper extremity pain HISTORY OF PRESENT ILLNESS: 55-year-old male presents history of pain base the neck and right upper extremity for "many years" worse over the past 6 weeks, without any specific new injury or accident. Patient reports pain is increased in the base the neck right shoulder upper scapular region anterior shoulder lateral shoulder posterior shoulder into the arm rating the triceps and into the forearm as well patient reports no motor loss but significant fatigability the right upper extremity compared to the left. Patient reports significant headaches as well in the back of the neck and the back of the head on the right side. Patient reports its constant and stabbing in the neck and shoulder changes during the day with activity worse with repetitive motions reaching over his head with his right hand weightbearing repetitive activities and lifting. Patient reports it is difficult to sleep as he lays on his right side it does awaken from sleep least 2-3 times a night. Patient reports he does not affect his bowel bladder control or go to walk he has had some chiropractic treatment in the past also physical therapy in the past and epidural injections in the past all of which were only moderately helpful patient reports he is taking hydrocodone which does decrease the pain by about 40% and tizanidine also which has not decreased the pain significantly patient rates his disability rating 0-10 10 being the worst is a 5 with an home responsibilities and social activity 7 with recreation 10 with occupation 8 with sexual behavior 6 with self-care and 3 of life support activities. Patient not had any recent diagnostic studies on the cervical spine or shoulders. PAST MEDICAL HISTORY: PMH: Diabetes, chronic pancreatitis, hyperlipidemia, end-stage renal disease, hypertension, COPD, prostate cancer 2013 PREVIOUS SURGERIES: Past Surgical Hx: Lumbar discectomy 2018x2, cholecystectomy, pseudocyst drained from the pancreas, facial I&D, AV shunt placement left arm CURRENT MEDICATIONS: Current Meds: Active Scripts Medications Dose Route/Sig Max Daily Dose Days Date Category Admelog (Insulin Lispro) 100 Unit/1 Ml Vial 6 Units SQ TIDWMEALS 30 12/17/20 Rx Lantus (Insulin Glargine,Hum.rec.anlog) 100 Unit/1 Ml Vial 14 Unit SQ DAILY10 12/17/20 Rx Doxazosin Mesylate 4 Mg Tablet 1 Tab PO BID 5/29/21 Rx Trazodone Hcl 100 Mg Tablet 1 Tab PO QHS 12/16/20 Reported Calcitriol 0.25 Mcg Capsule 0.25 Mcg PO DAILY 30 07/04/20 Rx Renvela (Sevelamer Carbonate) 800 Mg Tablet 800 Mg PO TIDWMEALS 30 07/04/20 Rx Hydrocodone-Acetamin 7.5-325 (Hydrocodone/Acetaminophen) 1 Each Tablet 7.5-325 Mg PO Q6HRS PRN 07/01/20 Reported Mirtazapine 30 Mg Tab.rapdis 1 Tab PO QHS 30 06/29/20 Reported Fish Oil 1,000 mg Softgel (Eclectic-3/Dha/Epa/Fish Oil) 1,000 Mg Capsule 1,000 Mg PO DAILY 06/29/20 Reported Carvedilol 25 Mg Tablet 25 Mg PO BIDWMEALS 06/29/20 Reported Hydralazine Hcl 100 Mg Tablet 1 Tab PO TID 06/29/20 Reported Amlodipine Besylate 10 Mg Tablet 10 Mg PO DAILY 30 09/13/19 Rx Isosorbide Mononitrate Er (Isosorbide Mononitrate) 30 Mg Tab.er.24h 60 Mg PO DAILY 30 09/13/19 Rx Aspir 81 (Aspirin) 81 Mg Tablet.dr 1 Tab PO DAILY 08/26/17 Reported Atorvastatin Calcium 80 Mg Tablet 1 Tab PO DAILY 08/26/17 Reported ALLERGIES; Allergies: Coded Allergies: morphine (Verified Allergy, Intermediate, Itching, 06/29/20) lisinopril (Verified Adverse Reaction, Unknown, Dry Cough, 12/16/20) Dry Cough FAMILY HISTORY: Family Hx: Diabetes, hypertension, cancers SOCIAL HISTORY: Social Hx: Patient is nondrug alcohol does not use any illegal illicit recreational drugs, does not smoke quit 30 years ago, is single lives locally in [facility] and is currently on disability REVIEW OF SYSTEMS: ROS: Positive for those items mentioned in history of present illness, all systems are reviewed, current dialysis 3 days a week, otherwise negative ,and are comp lete full and well-documented on patient's chart. PHYSICAL EXAM: VS: Blood pressure is 120/55 pulse 74 respirations 18 temperature 98.5 F height 5 ft 5 in weight is 129 lbs PE: PHYSICAL EXAMINATION: GENERAL: The patient is awake, alert, oriented, appropriate, very pleasant in demeanor. HEENT: Shows normocephalic, atraumatic. Extraocular movements are intact and symmetrical. Oral cavity: Mucous membranes moist and pink. Dentition is intact. NECK: Shows anterior throat supple without palpable lymphadenopathy noted. Swallow reflex symmetrical. CHEST: Shows normal on inspection. Breath sounds are clear bilaterally, distant but no rales rhonchi or wheezes auscultated. HEART: Shows S1, S2 clear. No murmurs auscultated. ABDOMEN: Soft, nontender, nondistended, flat. Well-healed surgical scars are noted. No palpable organomegaly is noted. No rebound or guarding demonstrated. BACK: Shows spine grossly in the midline. Normal-appearing cervical lordotic cu rvature. Cervical paraspinous muscles show symmetrical with inspection on palpation some moderate tenderness diffusely in the middle and lower distribution the paraspinous muscles worse on the right than the left with palpation also into the superior medial trapezius mildly tender but without specific trigger points atrophy hypertrophy. Patient shows good rotation of motion cervical spine both laterally greater than 45 degrees closer to 90 degrees with full extension full forward flexion without significant limitation. There is slightly increased thoracic kyphosis, some minor flattening of the lumbar lordotic curvature. EXTREMITIES: Upper extremities show deep tendon reflexes 2+ in the biceps and triceps tendons. Motor exam is 5 on a scale of 5 with right rug shampooer strength, 4-5 with right biceps and triceps flexion, flexion and 5/5 throughout on the left. Peripheral pulses are 2+ radial. No peripheral edema is noted bilaterally. Upper extremities are warm and dry to touch, equal in color and appearance. SKIN: Shows warm and dry, good turgor. No edema. No sores, rashes or bruising throughout. IMPRESSION: Impression: 55-year-old male with 6-week history increasing pain base the neck and right upper extremity radicular fashion. End-stage renal disease on dialysis Diabetes COPD Chronic pancreatitis Plan: Options were discussed with the patient including conservative medical management physical therapies interventional techniques. Patient like to pursue interventional techniques as he has had success with these in the past. We discussed a cervical epidural steroid injection using description as well as a natomical model to describe the procedure. Risks were discussed including but not limited to: Bleeding, infection, possibility of epidural hematoma and subsequent neurological compromise, dural puncture, headaches, spinal cord and/or nerve damage, side effects of steroid medication, and poor results regarding pain control. Patient understands and wished to proceed. Also will order MRI scan of the cervical spine to be performed. Patient will return to the clinic in approximately 2 weeks for follow-up, was counseled as return appointment activity level and side effects to be aware of. Procedure cervical epidural steroid injection at the C6-7 level, using local anesthetic under sterile prep and drape using C-arm fluoroscopic guidance under local anesthesia medications injected ;120 mg Depo-Medrol +5 mL normal saline and 2 mL contrast; condition at discharge is stable patient tolerated procedure well. and had no complications RUPAL MURILLO MD Jan 31, 2021 12:36
== END | disposition home or self-care (01) ==
LOC: PNCL 11:10
PROVIDERS: ATTEND Anesthesiology
DX: M54.2 Cervicalgia (principal); M79.601 Pain in right arm; I12.0 Hypertensive chronic kidney disease with stage 5 chronic kidney disease or end stage renal disease; N18.6 End stage renal disease; E11.22 Type 2 diabetes mellitus with diabetic chronic kidney disease; J44.9 Chronic obstructive pulmonary disease, unspecified; I25.10 Atherosclerotic heart disease of native coronary artery without angina pectoris; E78.00 Pure hypercholesterolemia, unspecified; E66.9 Obesity, unspecified; G47.30 Sleep apnea, unspecified; K21.9 Gastro-esophageal reflux disease without esophagitis; Z87.891 Personal history of nicotine dependence; Z79.82 Long term (current) use of aspirin; Z79.4 Long term (current) use of insulin; Z79.899 Other long term (current) drug therapy; Z90.49 Acquired absence of other specified parts of digestive tract; Z98.890 Other specified postprocedural states; Z88.6 Allergy status to analgesic agent; Z88.8 Allergy status to other drugs, medicaments and biological substances; Z99.2 Dependence on renal dialysis
CPT/HCPCS: 62321; J1030; J1040; Q9965

== ENCOUNTER → 2021-02-16 | Outpatient (CLI) | payer BC ==
[2020-12-17 12:10] VITALS: BP 165/64
[~2021-02-16] MED LIST changes: -IOHEXOL 180 MG/ML 10 ML VIAL. ONE; -methylPREDNISolone ACETATE 40 MG/ML VIAL. ONE; -methylPREDNISolone ACETATE 80 MG/ML VIAL. ONE
--- NOTE | 2021-02-17 08:07 | KCIC ---
MR CERVICAL SPINE WO DATE: 02/16/2021 1:45 PM INDICATION: RIGHT CERVICAL RADICULOPATHY. Neck pain down into right arm. Some LUE numbness and tingl ing. TECHNIQUE: Multiplanar multisequence magnetic resonance imaging of the cervical spine was performed w ithout administration of intravenous contrast using the standard cervical spine protocol. COMPARISON: None. FINDINGS: Motion artifact degrades image quality. Straightening of the cervical lordosis. No acute fracture. Moderate multilevel degenerative disc zoila iccation and disc height loss. No marrow replacing process to suggest malignancy. Subtle abnormal T2/STIR hyperintense spinal cord signal at C4-5. On the limited views of the cranial cavity and brain, the cerebellum and ramandeep have normal morphology and signal characteristics. No Chiari malformation. No soft tissue abnormality. Normal signal voids are present in the vertebral arteries. C2-3: No significant spinal canal stenosis or neural foraminal narrowing. C3-4: Disc osteophyte complex. Uncovertebral hypertrophy. Mild bilateral neural foraminal narrowing. Moderate spinal canal stenosis with AP dimension of 7 mm. C4-5: Disc osteophyte complex. Uncovertebral hypertrophy. Ligamentum flavum thickening. Severe spinal canal stenosis with deformity of the spinal cord, AP dimension of the canal measuring 5 mm. Moderate to severe bilateral neural foraminal narrowing. C5-6: Disc osteophyte complex. Uncovertebral hypertrophy. Moderate bilateral neural foraminal narrowi ng. Mild spinal canal stenosis. C6-7: Disc osteophyte complex. Uncovertebral hypertrophy. Moderate bilateral neural foraminal narrowi ng.. Mild spinal canal stenosis. C7-T1: No significant spinal canal stenosis or neural foraminal narrowing. IMPRESSION: Severe spinal canal stenosis at C4-5 with subtle abnormal spinal cord signal, which could represent e zachariah and/or myelomalacia. Degenerative changes at the remaining levels as detailed above. FOR INTERNAL CODING PURPOSES Critical result: Findings discussed with Dr. Healy's office at 8:00 AM on 02/17/2021. RESULT CODE: (C) Electronically signed by: Nathaniel Cantrell MD (02/17/2021 8:05 AM) [id number]
== END | disposition home or self-care (01) ==
LOC: KCIC MRI 13:07
PROVIDERS: ATTEND Anesthesiology
DX: M47.22 Other spondylosis with radiculopathy, cervical region (principal); M48.02 Spinal stenosis, cervical region; I12.0 Hypertensive chronic kidney disease with stage 5 chronic kidney disease or end stage renal disease; N18.6 End stage renal disease; E11.22 Type 2 diabetes mellitus with diabetic chronic kidney disease; E78.00 Pure hypercholesterolemia, unspecified; J44.9 Chronic obstructive pulmonary disease, unspecified; G47.30 Sleep apnea, unspecified; I25.10 Atherosclerotic heart disease of native coronary artery without angina pectoris; E66.9 Obesity, unspecified; K21.9 Gastro-esophageal reflux disease without esophagitis; Z99.2 Dependence on renal dialysis; Z79.82 Long term (current) use of aspirin; Z79.4 Long term (current) use of insulin; Z79.899 Other long term (current) drug therapy; Z98.890 Other specified postprocedural states; Z87.891 Personal history of nicotine dependence; Z88.6 Allergy status to analgesic agent; Z88.8 Allergy status to other drugs, medicaments and biological substances
CPT/HCPCS: 72141

== ENCOUNTER → 2021-03-07 | Outpatient (CLI) | payer BC ==
[2020-12-17 12:10] VITALS: BP 165/64
[~2021-03-07] MED LIST changes: +IOHEXOL 180 MG/ML 10 ML VIAL. ONE; +methylPREDNISolone ACETATE 40 MG/ML VIAL. ONE; +methylPREDNISolone ACETATE 80 MG/ML VIAL. ONE
--- NOTE | 2021-03-07 10:10 | PDOC ---
Progress Note - Pain Clinic Date of Service: DOS: DATE: 03/07/21 TIME: 10:07 Diagnosis: Dx: Cervical radiculopathy with cervical degenerative disc disease History or Present Illness: HPI: 55-year-old male returns for follow-up status post cervical epidural steroid action x1. Patient reports about 60% improvement for the first 2 weeks and the pain began to return but not to its baseline in the base the neck and the left upper extremity patient reports his numbness and tingling in the hand and arm as well as the shoulder base the neck and shoulder blade on the left side radiating to the left upper extremity patient reports is a 9 on scale 10 is worse over the past week 6 on average/and is a 4 today. Patient reports he has been doing much better initially with household activities traveling sleeping better now getting awakened from sleep about every 3-4 hours patient reports no new motor or sensory deficits no bowel or bladder incontinence or other complaints. Physical Exam: VS: Blood pressure is 154/71 pulse 88 respirations 18 temperature is 98.3 F weight is 134 pounds. PE: PHYSICAL EXAMINATION: GENERAL: The patient is awake, alert, oriented, appropriate, very pleasant in demeanor HEENT: Shows normocephalic, atraumatic. Extraocular movements are intact and symmetrical. Oral cavity: Mucous membranes moist and pink. Dentition is intact. NECK: Shows anterior throat supple without palpable lymphadenopathy noted. Swallow reflex symmetrical. CHEST: Shows normal on inspection. Breath sounds are clear bilaterally, distant but no rales or rhonchi. HEART: Shows S1, S2 clear. No murmurs auscultated. ABDOMEN: Soft, nontender, nondistended. No palpable organomegaly is noted. BACK: Shows spine grossly in the midline. Normal-appearing cervical lordotic curvature. Cervical paraspinous muscles show symmetrical inspection on palpation some moderate tenderness the inferior aspect the cervical paraspinous muscle more on the left than the right but present bilaterally without signi ficant trigger points or radiation or atrophy or hypertrophy. Patient shows full rotation motion cervical spine both laterally as well as extension flexion without significant difficulty rotation. There is slightly increased thoracic kyphosis, some minor flattening of the lumbar lordotic curvature. . EXTREMITIES: Upper extremities show deep tendon reflexes 2+ in the patellar and tendo calcaneus tendons. Motor exam is 5 on a scale of 5 with right culinary manager strength 4-5 with right biceps triceps flexion 5 out of 5 on the left throughout. Peripheral pulses are 2+ radial. No peripheral edema is noted bilaterally. Upper extremities are warm and dry to touch, equal in color and appearance. SKIN: Shows warm and dry, good turgor. No edema. No sores, rashes or bruising throughout. Procedure: Procedure: Options were discussed with the patient. Patient's old chart was reviewed his current medication regimen updated current review of systems updated today as well. We will proceed with a second cervical epidural steroid injection today with fluoroscopic guidance. Risks were discussed including but not limited to: Bleeding, infection, possibility of epidural hematoma and subsequent neurological compromise, dural puncture, headaches, spinal cord and/or nerve damage, side effects of steroid medication, and poor results regarding pain control. Patient understands and wished to proceed. Patient will return to clinic in approximately 2 weeks for follow-up, was counseled as to return appoi ntment activity level and side effects to be aware of. Medication Injected: Med Injected: Procedure cervical epidural steroid injection at the C6-7 level, using local anesthetic under sterile prep and drape using C-arm fluoroscopic guidance under local anesthesia medications injected ;120 mg Depo-Medrol +5 mL normal saline and 2 mL contrast; condition at discharge is stable patient tolerated procedure well. and had no complications Condition at Discharge: Condition at Discharge: Condition at discharge is stable, patient tolerated the procedure well and had no complications. RUPAL MURILLO MD Mar 07, 2021 10:10
--- NOTE | 2021-03-07 10:11 | PDOC4 ---
Procedure Note: ICD 10 Code: ICD 10 Code: M54.12 M50.30 Procedure Note: Patient was consented for cervical epidural steroid injection with fluoroscopic guidance. Risks were discussed including but not limited to: Bleeding, infection, possibility of epidural hematoma and subsequent neurological compromise, dural puncture, headaches, spinal cord and/or nerve damage, side effects of steroid medication, and poor results regarding pain control. Patient understands and wished to proceed. Procedure cervical epidural steroid injection at the C6-7 level, using local anesthetic under sterile prep and drape using C-arm fluoroscopic guidance under local anesthesia medications injected ;120 mg Depo-Medrol +5 mL normal saline and 2 mL contrast; condition at discharge is stable patient tolerated procedure well. and had no complications RUPAL MURILLO MD Mar 07, 2021 10:11
== END | disposition home or self-care (01) ==
LOC: PNCL 09:02
PROVIDERS: ATTEND Anesthesiology
DX: M50.10 Cervical disc disorder with radiculopathy, unspecified cervical region (principal); I25.10 Atherosclerotic heart disease of native coronary artery without angina pectoris; E78.00 Pure hypercholesterolemia, unspecified; K21.9 Gastro-esophageal reflux disease without esophagitis; M19.90 Unspecified osteoarthritis, unspecified site; I12.0 Hypertensive chronic kidney disease with stage 5 chronic kidney disease or end stage renal disease; E11.22 Type 2 diabetes mellitus with diabetic chronic kidney disease; N18.6 End stage renal disease; E66.9 Obesity, unspecified; J44.9 Chronic obstructive pulmonary disease, unspecified; Z99.2 Dependence on renal dialysis; Z98.890 Other specified postprocedural states; Z90.49 Acquired absence of other specified parts of digestive tract; Z87.891 Personal history of nicotine dependence; Z79.82 Long term (current) use of aspirin; Z79.4 Long term (current) use of insulin; Z79.899 Other long term (current) drug therapy; Z88.6 Allergy status to analgesic agent; Z88.8 Allergy status to other drugs, medicaments and biological substances
CPT/HCPCS: 62321; J1030; J1040; Q9965

== ENCOUNTER 2021-04-17 19:02 | Inpatient (IN) | payer BC ==
[~2021-04-17] VITALS: Ht 165.1 cm; Wt 68.2 kg
[~2021-04-17 19:02] MED LIST changes: -IOHEXOL 180 MG/ML 10 ML VIAL. ONE; -methylPREDNISolone ACETATE 40 MG/ML VIAL. ONE; -methylPREDNISolone ACETATE 80 MG/ML VIAL. ONE
--- NOTE | 2021-04-17 22:15 | PHYS DOC ---
Past Medical History Past Medical History: Cancer, Diabetes-Type II, High Cholesterol, Hypertension, PR, Pancreatitis, Other Additional Past Medical Histor: MWF dialysis Past Surgical History: No Surgical History Additional Past Surgical Histo: back sx, pseudocyst, CARDIAC STENT, SALIVARY GLAND Smoking Status: Current Every Day Smoker Alcohol Use: None Drug Use: None General Adult EDM: Chief Complaint: SHORTNESS OF BREATH HPI: HPI: Patient is a 55-year-old male presenting via POV for shortness of breath. This is been going on for past 24 hours without any known inciting event, trauma, ingestion or other exposure. Nothing known makes better or worse. Patient denies any pain just reports chest wall pain from coughing. Has had URI symptoms that started at time of shortness of breath without any known sick contacts or recent travel. Denies any fever but admits nasal congestion, rhinorrhea, postnasal drip, dry nonproductive cough and worsened breathing than usual. Patient has complicated medical history most significant for end-stage renal disease with dialysis Saturday and chronic respiratory failure for which he is on 2 L oxygen daily. Patient presented off of oxygen and on in triage was found to be 75% on room air and surprisingly not in any distress. He was immediately brought back to ER where supplemental oxygen was provided with immediate resolution of hypoxia. Patient admits last dialysis session was on Saturday, he did not attend session today because he felt so poorly. He takes a baby aspirin daily, no blood thinners. Review of Systems: Review of Systems: Fourteen body systems of review of systems have been reviewed. See HPI for pertinent positives and negative responses, other araiza all other systems are negative, non-pertinent or non-contributory Heart Score: C/O Chest Pain: No HEART Score for Chest Pain: HEART Score for Chest Pain Response (Comments) Value History Moderately Suspicious 1 ECG Nonspecific Repolarizatio 1 Age >45 - < 65 1 Risk Factors 1 or 2 Risk Factors 1 Total 4 Risk Factors: Risk Factors: DM, Current or recent (<one month) smoker, HTN, HLP, family history of CAD, obesity. Risk Scores: Score 0 - 3: 2.5% MACE over next 6 weeks - Discharge Home Score 4 - 6: 20.3% MACE over next 6 weeks - Admit for Clinical Observation Score 7 - 10: 72.7% MACE over next 6 weeks - Early Invasive Strategies Allergies: Allergies: Allergies Coded Allergies Type Severity Reaction Last Updated Verified morphine Allergy Intermediate Itching 06/29/20 Yes lisinopril Adverse Reaction Unknown Dry Cough 12/16/20 Yes Physical Exam: PE: Constitutional: Well developed, well nourished, no acute distress, non-toxic appearance. HENT: Normocephalic, atraumatic, bilateral external ears normal, oropharynx moist, nasal cannula in place, no cervical lymphadenopathy, no phonation changes and tolerating secretions well, no oral exudates, nose normal. Eyes: PERRLA, EOMI, conjunctiva normal, no discharge. Neck: Normal range of motion, no tenderness, supple, no stridor. Cardiovascular: Heart rate regular, sinus rhythm, no murmurs rubs or gallops Lungs & Thorax: No overt respiratory distress, patient is tachypneic, no accessory muscle use, clear to auscultation bilaterally Abdomen: Bowel sounds normal, soft, no tenderness, no masses, no pulsatile masses. Nonsurgical abdomen, no peritoneal signs Skin: Warm, dry, no erythema, no rash. Back: No tenderness, no CVA tenderness. Extremities: No tenderness, no cyanosis, no clubbing, ROM intact, no edema. Left AV fistula in place Neurologic: Alert and oriented X 3, grossly normal motor & sensory function, no focal deficits noted. Psychologic: Affect normal, judgement normal, mood normal. Current Patient Data: Vital Signs: Vital Signs Date Time Temp Pulse Resp B/P (MAP) Pulse Ox O2 Delivery O2 Flow Rate FiO2 04/17/21 19:45 98.2 63 18 106/58 (74) 84 Room Air 98.2 EKG: EKG: EKG ordered and interpreted by myself at 2240 hrs. as sinus rhythm at 62 bpm, unremarkable intervals, no axis deviation, no acute ischemic findings, no STEMI Radiology/Procedures: Radiology/Procedures: XR CHEST 1V History: Reason: SHOB / Spl. Instructions: / History: Comparison: December 16, 2020. Findings: Mild bilateral reticular interstitial thickening. Increased right upper and midlung opacities. No pleural effusion. No pneumothorax. Normal heart size. Impression: 1. Increased right upper and mid lung opacities, may represent pneumonia including viral pneumonia. Recommend follow-up to ensure resolution. 2. Mild bilateral reticular interstitial thickening, may indicate chronic interstitial changes. Electronically signed by: Omid Arnold DO (04/17/2021 10:36 PM) [facility] Course & Med Decision Making: Course & Med Decision Making Airway patent, breathing unlabored, IV access and vitals obtained concerning for hypoxia on room air as patient did not travel to the ER with his supplemental oxygen Typical 2 L oxygen via nasal cannula reapplied while in room with immediate resolution and hypoxia. HPI, physical exam and comprehensive ER work-up concerning for pneumonia and electrolyte imbalance due to missing dialysis session today I contacted patient's primary care physician and discussed need for ho spitalization, they agreed and accepted patient for admission. IV Rocephin and azithromycin for pneumonia started. I updated patient and family member at bedside on all ER findings and need for hospitalization, they agreed. All questions and concerns addressed prior to hospital admission. He reiterates he is full code at time of admission Eldon Disclaimer: Eldon Disclaimer: This electronic medical record was generated, in whole or in part, using a voice recognition dictation system. Departure Departure Impression: Primary Impression: Pneumonia Additional Impressions: Chronic respiratory failure ESRD on dialysis Disposition: ADMITTED INPATIENT Admitting Physician: Trina Valadez Condition: STABLE Referrals: TRINA VALADEZ MD (PCP) MAR KLEIN DO Apr 17, 2021 22:15
[2021-04-17 22:25] LABS: BASO # 0.1 x10^3/uL (0.0-0.2); BASO % 1 % (0-3); EOS % 0 % (0-3); HEMATOCRIT 37.3 % (39.0-53.0); HEMOGLOBIN 12.3 g/dL (13.0-17.5); LYMPH # 1.1 x10^3/uL (1.0-4.8); LYMPH % 6 % (24-48); MEAN CORPUSCULAR HEMOGLOBIN 28 pg (25-35); MEAN CORPUSCULAR HGB CONC 33 g/dL (31-37); MEAN CORPUSCULAR VOLUME 86 fL (79-100); MONO # 0.7 x10^3/uL (0.0-1.1); MONO % 4 % (0-9); NEUT # 15.4 x10^3/uL (1.8-7.7); NEUT % 89 % (31-73); PLATELET COUNT 281 x10^3/uL (140-400); RED BLOOD COUNT 4.36 x10^6/uL (4.30-5.70); RED CELL DISTRIBUTION WIDTH 16.4 % (11.5-14.5); WHITE BLOOD COUNT 17.2 x10^3/uL (4.0-11.0)
[2021-04-17] MEDS ORDERED: NITROGLYCERIN SUBLINGUAL 0.4 MG BOTTLE OF 25. SL PRN (22:30)
[2021-04-17 22:36] LABS: CALCIUM 8.7 mg/dL (8.5-10.1); CREATININE 7.2 mg/dL (0.7-1.3); GFR 9.7; POTASSIUM 5.5 mmol/L (3.5-5.1)
--- NOTE | 2021-04-17 22:38 | RAD ---
XR CHEST 1V History: Reason: SHOB / Spl. Instructions: / History: Comparison: December 16, 2020. Findings: Mild bilateral reticular interstitial thickening. Increased right upper and midlung opacities. No ple ural effusion. No pneumothorax. Normal heart size. Impression: 1. Increased right upper and mid lung opacities, may represent pneumonia including viral pneumonia. Recommend follow-up to ensure resolution. 2. Mild bilateral reticular interstitial thickening, may indicate chronic interstitial changes. Electronically signed by: Omid Arnold DO (04/17/2021 10:36 PM) [facility]
[2021-04-17 22:42] LABS: ALBUMIN/GLOBULIN RATIO 0.9 (1.0-1.7); MAGNESIUM 1.8 mg/dL (1.8-2.4); PHOSPHORUS 5.7 mg/dL (2.6-4.7); TOTAL BILIRUBIN 0.5 mg/dL (0.2-1.0); TOTAL PROTEIN 6.5 g/dL (6.4-8.2)
[2021-04-17] MEDS ORDERED: ASPIRIN CHEWABLE 81 MG TABLET. PO ONE (23:00)
[2021-04-17] MEDS ORDERED: cefTRIAXone IV Push 1 GM VIAL. IVP ONE (23:00)
[2021-04-17] MEDS ORDERED: AZITHRMYCN 500MG IVPB FOR OMNI 250 ML IV ONE (23:00)
[2021-04-18] VITALS (7 sets, daily range): BP systolic 146–207; BP diastolic 64–82
[2021-04-18] MEDS ORDERED: LIPA1CAP31 PO (00:43)
[2021-04-18] MEDS ORDERED: DOXA4TAB3 PO (00:43)
[2021-04-18] MEDS ORDERED: TIZA4TAB2 PO (00:46)
[2021-04-18 02:24] LABS: % BASOS 1 % (0-3); % LYMPHS 5 % (24-48); % MONOS 3 % (0-10); % SEGS 91 % (35-66); PLT ESTIMATE ADEQUATE (ADEQUATE)
--- NOTE | 2021-04-18 03:00 | EKG ---
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
[2021-04-18] MEDS ORDERED: ACETAMINOPHEN 325 MG TABLET. PO PRN (08:45)
[2021-04-18] MEDS: ISOSORBIDE MONONITRATE ER 30 MG TAB.ER.24H PO SCH (09:00)
[2021-04-18] MEDS: DOXAZOSIN MESYLATE 4 MG TABLET. PO SCH (09:00)
[2021-04-18] MEDS: CARVEDILOL 12.5 MG TABLET. PO SCH ×2 (09:00→17:00)
[2021-04-18] MEDS ORDERED: INSULIN GLARGINE SYRINGE. SQ SCH (10:00)
[2021-04-18] MEDS ORDERED: ALBUTEROL SULFATE 2.5 MG/3 ML NEBU. NEB PRN (10:30)
--- NOTE | 2021-04-18 10:31 | CONS ---
DATE OF CONSULTATION: 04/18/2021 ATTENDING PHYSICIAN: Dr. Julissa Valadez. REASON FOR CONSULTATION: Dyspnea, possible pneumonia. HISTORY OF PRESENT ILLNESS: The patient is a 55-year-old male who has been a smoker for 30 years. He uses oxygen 2 liters p.r.n. He was brought into the hospital with complaint of vomiting and diarrhea. He also had some cough and right sided chest pain with coughing. The patient said he was short of breath this morning. All the symptoms started in the last 36 hours. The patient was hypoxic on arrival. His vomiting and diarrhea has stopped. He is vaccinated with COVID. The patient's COVID rapid was negative. The patient is on hemodialysis. His sodium was 123. His chest x-ray was reviewed. It shows faint interstitial infiltrates, more on the right than on the left. These have accentuated from previous x-ray from November. PAST MEDICAL HISTORY: Significant for history of diabetes, history of dyslipidemia, hypertension, HI, stent, pancreatitis, history of end-stage renal disease, on hemodialysis and everyday smoker. PAST SURGICAL HISTORY: Back surgery, pseudocyst and cardiac stents. ALLERGIES: LISINOPRIL AND MORPHINE. MEDICATIONS: Reviewed as listed in the MRAD including subcutaneous heparin. He received a dose of azithromycin and Rocephin. REVIEW OF SYSTEMS: A 12-point system obtained. Pertinent positives discussed in my present illness, otherwise noncontributory. All systems that were negative were reviewed as well. SOCIAL HISTORY: Smoker for 30 years. FAMILY HISTORY: Noncontributory to lungs. PHYSICAL EXAMINATION: VITAL SIGNS: His vital signs were reviewed. Afebrile, pulse ox 95% on 3 liters. Blood pressure on the high side 180 systolic. The patient in no obvious respiratory distress. NECK: Supple. LUNGS: With diminished breath sounds. CARDIOVASCULAR: With a regular rate. ABDOMEN: Soft. EXTREMITIES: With no pitting edema. LABORATORY DATA: Labs were reviewed. Sodium 123, potassium 5.5, BUN 36, creatinine 7.2. ProBNP is 4373. White cell count 17.2. IMPRESSION: 1. Acute hypoxic respiratory failure, suspect multifactorial. Could be a combination of interstitial congestive heart failure versus interstitial pneumonia/ Viral Pneumonia 2. The patient with vomiting, diarrhea and cough. Could be aspiration pneumonia versus atypical pneumonia. The patient is vaccinated with COVID and COVID rapid is negative. await PCR 3. End-stage renal disease, on hemodialysis. 4. Hyponatremia. 5. 30 years of tobaccoism, likely underlying chronic obstructive pulmonary disease. RECOMMENDATIONS: 1. We will obtain a noncontrast CT chest for further evaluation of infiltrates. 2. Obtain an echocardiogram. 3. Continue empiric antibiotics. 4. Obtain procalcitonin level. 5. Close monitoring of blood pressure per PCP. 6. Heparin for DVT prophylaxis. 7. Smoking cessation counseling provided. 8. Follow renal recommendation. 9. Discussed with the patient and RN. 10. Await COVID-PCR BRUNO/ARMAAN DR: Kevin TID: [id number] PONCED
--- NOTE | 2021-04-18 10:35 | PDOC ---
Provider Note Date of Service: DATE: 04/18/21 TIME: 10:34 Provider Note H&P. [id number] Justifications for Admission Other Justification TRINA ALDANA MD Apr 18, 2021 10:35
--- NOTE | 2021-04-18 10:37 | NUR ---
SW following. Discussed with RN, pt from home, 3L (uses 2L at home), rapid COVID-19 negative - PCR pending. Pt does dialysis MWF at [facility] (ph: [phone]). Nephrology following. SW will continue to follow.
--- NOTE | 2021-04-18 10:55 | HP ---
ADMIT DATE: 04/18/2021 HISTORY OF PRESENT ILLNESS: This 55-year-old male who has history of diabetes; COPD; end-stage renal disease, on hemodialysis; along with coronary artery disease; chronic pancreatitis and history of prostate cancer, started having shortness of breath for last 24 hours. He also had hiccups. The patient could not get dialysis yesterday. Because of the worsening dyspnea and hiccups he came to the Emergency Room. In the Emergency Room, chest x-ray showed bilateral infiltrates. His WBC count had increased to 17.2, hemoglobin was 12.3. Sodium was low at 123, potassium 5.5, BUN 36, creatinine 7.2, glucose 159, calcium 8.7. BNP 4373. Troponin less than 0.017. Albumin 3. COVID-19 PCR rapid test was negative. Chest x-ray showed increased right upper and mid lung opacities, may represent pneumonia including viral pneumonia and mild bilateral reticular interstitial thickening, may indicate chronic interstitial changes. Because of the pneumonia, exacerbation of COPD, hyponatremia and hiccups and need for dialysis, the patient was admitted for further evaluation and management. SYSTEMS REVIEW: As noted in the history of present illness. The patient denies any nausea or vomiting. He denies any diarrhea, skin rash. In the Emergency Room, he was found to have 75% FiO2 on room air. He uses 2 liters of oxygen at home continuously for chronic respiratory failure. Other systems reviewed and are negative. 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 PAST SURGICAL HISTORY: Includes lumbar diskectomy in 2008, cholecystectomy in 1999, treatment for pancreatic pseudocyst that was removed in 2001, the patient again had lumbar microsurgery in 08/2017, cardiac stent placement, removal of saliva gland. SOCIAL HISTORY: Smokes daily at least 1 pack per day for over 20 years; history of alcohol abuse, quit drinking alcohol more than 10 years ago. ALLERGIES: None known any. MEDICATIONS: Reviewed and reconciled. The patient takes Lantus 18 units subQ daily and Humalog 6 units 3 times a day. FAMILY HISTORY: Positive for cancer, diabetes, hypertension, heart disease. PHYSICAL EXAMINATION: VITAL SIGNS: Temperature 98.2; pulse 63 per minute; respirations 18 per minute; blood pressure 106/58, it went up to 200/79, this morning it was 180/74. GENERAL: The patient is a middle-aged male who is alert, oriented x 3, chronically ill and in mild respiratory distress. He is on oxygen by nasal cannula. EYES: Pupils reactive to light. Conjunctivae pale. Sclerae muddy. HENT: Partial exam unremarkable. LUNGS: Decreased breath sounds bilaterally with occasional coarse breath sounds. CARDIOVASCULAR: S1, S2, regular. ABDOMEN: Soft, nontender. No guarding, no rigidity. Bowel sounds present. EXTREMITIES: Trace edema. CENTRAL NERVOUS SYSTEM: Alert and oriented. Generalized weakness, moves extremities. LABORATORY FINDINGS: As noted earlier. IMPRESSION: 1. Pneumonia, right sided. 2. Exacerbation of chronic obstructive pulmonary disease. 3. Acute on chronic hypoxic respiratory failure. 4. End-stage renal disease, on hemodialysis Saturday, Saturday, Saturday. 5. Hiccups. 6. Gastroesophageal reflux disease. 7. Accelerated hypertension. 8. 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 9. Hyperlipidemia. 10. Coronary artery disease with history of stent placement. 11. Chronic pancreatitis. 12. Anemia. 13. History of myocardial infarction. 14. Surgery for removal of salivary gland. 15. History of prostate cancer, treated with radiation therapy. 16. Physical deconditioning. 17. Osteoarthritis. 18. Chronic back pain. PLAN: 1. Pneumonia. Consult Dr. Gray. Start IV Rocephin and Zithromax that were given yesterday. I will consult Dr. Gretel Aguilar for Infectious Disease evaluation because of his multiple medical problems, so right antibiotic therapy can be instituted. 2. Exacerbation of COPD. Start DuoNeb nebulization. 3. Acute on chronic hypoxic respiratory failure. Continue oxygen by nasal cannula. 4. End-stage renal disease, on hemodialysis. Consult Dr. Riddle for Nephrology evaluation and management. He will get hemodialysis today. 5. Persistent hiccups. Continue home medications including omeprazole as the patient also has gastroesophageal reflux disease. Consult Dr. Santo for GI evaluation and management. 6. COVID-19 rapid antigen test was negative in the ER. 7. Monitor blood sugars. Hold Lantus. Continue Humalog sliding scale insulin. For details, please refer to the orders. Prognosis of this patient is poor due to his multiple medical problems. MAGGIE DR: David TID: [id number]
--- NOTE | 2021-04-18 11:37 | PDOC2 ---
GI CONSULT Date of Service: DATE: 04/18/21 TIME: 11:14 Reason For Consult: hiccups HPI: HPI: 55 y/o male ill since Saturday - awoke w/ hiccups that morning in the setting of shortness of breath, vomiting (bilious), and diarrhea (watery). Denies precipitating events. Vomiting and diarrhea have resolved - tolerating diet today. Was able to get some rest overnight "because my oxygen was turned up" but hiccups remain problematic today. Also "breathing isn't good." H/o GERD controlled w/ omeprazole QD. No dysphagia, hematemesis, abdominal pain, hematochezia, melena, or constipation. Weight loss of ~20 pounds in a few months - attributes to ESRD. Past EGDs and colonoscopies @ [facility] - "they thought they saw something but it turned out to be nothing." Chart mentions h/o colon polyps. S/p cholecystectomy (doesn't recall stones). H/o chronic pancreatitis related to alcohol abuse - sober since 2005, cannot recall timing of last episode of pancreatitis (because it's been awhile), takes Zenpep, does have h/o pseudocyst (?w/ past drainage). At one point had abnormal liver labs w/ an episode of pancreatitis, but no issues since. Denies PUD history. On ASA. Had COVID vaccines, rapid test negative here. Reviewed past labs and imaging done here: h/o ACD (iron studies done 06/2020), diverticulosis, pancreatic calcifications, DM (A1c 9.9 11/2020). PMH: PMH: CAD, HTN, HLD, anxiety, COPD, PTSD, allergic rhinitis, ESRD on HD, prostate cancer s/p radiation, DM, +heterogyzous MTHFR, elevated homocystine LUE AVF, cholecystectomy, tonsillectomy, PCI.stent, facial I&D, pseudocyst drainage, lumbar surgeries FH: Family History: Cancer, CAD, DM, Hypertension Social History: Smoke: 1 pack per day ALCOHOL: other (heavy in past - sober since 2005) ROS: GEN: Denies fevers, chills, sweats HEENT: Denies blurred vision, sore throat CV: Denies chest pain RESP: +SOA +cough GI: Per HPI : Denies hematuria, dysuria ENDO: +weight loss NEURO: Denies confusion, dizziness MSK: Denies weakness, joint pain/swelling SKIN: Denies jaundice, pruritus Vitals: Vitals: Vital Signs Date Time Temp Pulse Resp B/P (MAP) Pulse Ox O2 Delivery O2 Flow Rate FiO2 04/18/21 07:00 98.9 63 20 180/74 (109) 95 Nasal Cannula 3.0 98.9 Labs: Labs: Laboratory Tests Test 04/17/21 22:10 04/17/21 22:35 04/18/21 08:20 White Blood Count 17.2 x10^3/uL (4.0-11.0) Red Blood Count 4.36 x10^6/uL (4.30-5.70) Hemoglobin 12.3 g/dL (13.0-17.5) Hematocrit 37.3 % (39.0-53.0) Mean Corpuscular Volume 86 fL (79-100) Mean Corpuscular Hemoglobin 28 pg (25-35) Mean Corpuscular Hemoglobin Concent 33 g/dL (31-37) Red Cell Distribution Width 16.4 % (11.5-14.5) Platelet Count 281 x10^3/uL (140-400) Neutrophils (%) (Auto) 89 % (31-73) Lymphocytes (%) (Auto) 6 % (24-48) Monocytes (%) (Auto) 4 % (0-9) Eosinophils (%) (Auto) 0 % (0-3) Basophils (%) (Auto) 1 % (0-3) Neutrophils # (Auto) 15.4 x10^3/uL (1.8-7.7) Lymphocytes # (Auto) 1.1 x10^3/uL (1.0-4.8) Monocytes # (Auto) 0.7 x10^3/uL (0.0-1.1) Eosinophils # (Auto) 0.0 x10^3/uL (0.0-0.7) Basophils # (Auto) 0.1 x10^3/uL (0.0-0.2) Segmented Neutrophils % 91 % (35-66) Lymphocytes % 5 % (24-48) Monocytes % 3 % (0-10) Basophils % 1 % (0-3) Platelet Estimate Adequate (ADEQUATE) Sodium Level 123 mmol/L (136-145) Potassium Level 5.5 mmol/L (3.5-5.1) Chloride Level 86 mmol/L (98-107) Carbon Dioxide Level 27 mmol/L (21-32) Anion Gap 10 (6-14) Blood Urea Nitrogen 36 mg/dL (8-26) Creatinine 7.2 mg/dL (0.7-1.3) Estimated GFR (Cockcroft-Gault) 9.7 BUN/Creatinine Ratio 5 (6-20) Glucose Level 159 mg/dL (70-99) Lactic Acid Level 1.1 mmol/L (0.4-2.0) Calcium Level 8.7 mg/dL (8.5-10.1) Phosphorus Level 5.7 mg/dL (2.6-4.7) Magnesium Level 1.8 mg/dL (1.8-2.4) Total Bilirubin 0.5 mg/dL (0.2-1.0) Aspartate Amino Transf (AST/SGOT) 6 U/L (15-37) Alanine Aminotransferase (ALT/SGPT) 10 U/L (16-63) Alkaline Phosphatase 126 U/L (46-116) Troponin I Quantitative < 0.017 ng/mL (0.000-0.055) BU-Czo-I-Type Natriuretic Peptide 4373 pg/mL (0-124) Total Protein 6.5 g/dL (6.4-8.2) Albumin 3.0 g/dL (3.4-5.0) Albumin/Globulin Ratio 0.9 (1.0-1.7) SARS-CoV-2 Antigen (Rapid) Negative (NEGATIVE) Glucose (Fingerstick) 119 mg/dL (70-99) Allergies: Coded Allergies: morphine (Verified Allergy, Intermediate, Itching, 06/29/20) lisinopril (Verified Adverse Reaction, Intermediate, Dry Cough, 04/17/21) Dry Cough Medications: Current Medications Medications (Trade) Dose Ordered Sig/Ravinder Route PRN Reason Start Time Stop Time Status Last Admin Dose Admin Nitroglycerin (Nitrostat) 0.4 mg PRN Q5MIN PRN SL CHEST PAIN 04/17/21 22:30 04/17/21 22:32 Aspirin (Aspirin Chewable) 162 mg 1X ONCE PO 04/17/21 23:00 04/17/21 23:01 DC 04/17/21 22:32 Ceftriaxone Sodium (Rocephin) 1 gm 1X ONCE IVP 04/17/21 23:00 04/17/21 23:01 DC 04/17/21 23:43 Azithromycin 250 ml @ 250 mls/hr 1X ONCE IV 04/17/21 23:00 04/17/21 23:59 DC 04/17/21 23:43 Imaging: Imaging: CXR 04/17 Impression: 1. Increased right upper and mid lung opacities, may represent pneumonia including viral pneumonia. Recommend follow-up to ensure resolution. 2. Mild bilateral reticular interstitial thickening, may indicate chronic interstitial changes. PE: GEN: NAD HEENT: Atraumatic, PERRLA LUNGS: CTAB HEART: RRR, no murmurs ABD: NABS, S/ND/NT, no masses EXTREMITY: No edema SKIN: No rashes, no jaundice NEURO/PSYCH: A & O 3 A/P: A/P: Acute/chronic resp failure, hiccups, abnormal CXR Vomiting, diarrhea - resolved Hyponatremia, elevated BNP ACD, DM, ESRD on HD GERD - on PPI QD CRC screen, ?h/o colon polyps - past 'scopes @ [facility] Diverticulosis S/p cholecystectomy Chronic pancreatitis, h/o pseudocyst/drainage H/o alcohol abuse - sober x 15 years Rapid COVID negative -- Hiccups difficult to treat - will d/w Dr. Santo. Continue PPI for h/o GERD, treat pulm issues. Observe for recurrence of vomiting and diarrhea. Will attempt to review previous 'scopes from [facility]. KIMMY MARAVILLA Apr 18, 2021 11:37
--- NOTE | 2021-04-18 11:40 | CONS ---
DATE OF CONSULTATION: 04/18/2021 REFERRING PHYSICIAN: Dr. Valadez. REASON FOR CONSULTATION: Antibiotic management. HISTORY OF PRESENT ILLNESS: A 55-year-old male with history of end-stage renal disease, on hemodialysis, diabetes, COPD, coronary artery disease, chronic pancreatitis, history of prostate cancer, who presented with complaints of worsening shortness of breath which initially started with hiccups. He also had nausea, vomiting and diarrhea. His shortness of breath got worse. His white count was 17.2 in the ER with a sodium of 123. Troponin was less than 0.017. Rapid COVID-19 was negative. Chest x-ray showed bilateral lung opacities, likely viral with chronic interstitial changes present. The patient was on 3 liters of O2 by nasal cannula. The patient was given azithromycin and ceftriaxone. ID consultation has been requested for antibiotic management. Currently, the patient does not have any nausea, vomiting or diarrhea. Denies any fevers, chills. Denies any sick contact. He was vaccinated with COVID in August of this year. PAST MEDICAL HISTORY: Diabetes mellitus with end-stage renal disease, on dialysis; chronic pancreatitis, hypertension, anemia, coronary artery disease, osteoarthritis, prostate cancer status post radiation treatment, hyperlipidemia, hypertension, GERD, COPD, asthma, chronic respiratory failure, on home O2 at night. PAST SURGICAL HISTORY: Reviewed. SOCIAL HISTORY: Smoking positive. Denies any ETOH use. Lives with his brother. ALLERGIES: No known drug allergies. CURRENT MEDICATIONS: No antibiotics. Received a dose of ceftriaxone and azithromycin in the ER. Other medications reviewed. FAMILY HISTORY: As per HPI. PHYSICAL EXAMINATION: VITAL SIGNS: Temperature 98.9, pulse 63, respiration 20, blood pressure 180/74, oxygen saturation 95% on 2 liters O2 by nasal cannula. GENERAL: Alert, oriented x 3 male, lying in bed comfortably, in no acute distress, appears a little tired. HEENT: Normocephalic, atraumatic. Anicteric. NECK: Supple, no JVD. LUNGS: Clear bilaterally. No wheezing. HEART: S1, S2. ABDOMEN: Soft, nontender, nondistended, no rebound or guarding. EXTREMITIES: No edema, no cyanosis. DERMATOLOGIC: Warm, dry, no generalized rash. NEUROLOGIC: Alert and oriented x 3, grossly nonfocal. Generalized weakness. PSYCHIATRIC: Calm and cooperative. LABORATORY DATA: As above. IMAGING: Chest x-ray as above. IMPRESSION: 1. Acute on chronic hypoxic respiratory failure. 2. Leukocytosis. Could have reactive component 3. Pulmonary infiltrates more on the right side. SARS COVID rapid negative. 4. End-stage renal disease, on hemodialysis. 5. History of nausea, vomiting and diarrhea, improving, could be gastroenteritis. 6. Accelerated hypertension. 7. Diabetes mellitus type 2. 8. History of prostate cancer. 9. Hyponatremia 10. Nausea vomiting diarrhea prior to admission could be viral RECOMMENDATIONS: 1. Followup COVID PCR. 2. Restart antibiotics ,empiric Zosyn and azithromycin for now 3. Maintain aspiration precaution. 4. Follow up labs and cultures. 5. Continue supportive care. Thank you Dr. Valadez for allowing me to participate in this patient's care. If you have any questions, do not hesitate to contact me. Discussed with nursing staff MARILU/ARMAAN DR: Mihir TID: [phone] MTDD
[2021-04-18] MEDS ORDERED: PIPERACILLIN/TAZOBACTAM 2.25 GM in IV NORMAL SALINE 50ML 50 ML IV SCH (12:00)
[2021-04-18] MEDS ORDERED: IPRATRPIUM/ALBUTEROL 0.5/2.5MG 3 ML NEBU. NEB SCH (12:00)
[2021-04-18] MEDS: SEVELAMER CARBONATE 800 MG TABLET. PO SCH ×2 (12:09→17:00)
[2021-04-18] MEDS: ASPIRIN ENTERIC COATED 81 MG TABLET.DR. PO SCH (12:09)
[2021-04-18] MEDS: OMEGA-3 FATTY ACIDS/FISH OIL 1,000 MG CAPSULE. PO SCH (12:09)
[2021-04-18] MEDS: AZITHROMYCIN 250 MG TABLET. PO SCH (12:09)
[2021-04-18] MEDS: PANTOPRAZOLE 40 MG TABLET.DR. PO SCH (12:10)
[2021-04-18] MEDS: CALCITRIOL 0.25 MCG CAPSULE. PO SCH (12:10)
[2021-04-18] MEDS: LIPASE/PROTEAS/AMYLAS 10/32/42 CAPSULE.DR. PO SCH (12:10)
[2021-04-18] MEDS: HEPARIN for SUB-Q USE 5,000 UNIT/ML VIAL. SQ SCH ×2 (12:16→23:06)
--- NOTE | 2021-04-18 12:22 | PDOC2 ---
CONSULT Date of Consult Date of Consult DATE: 04/18/21 TIME: 12:06 Reason for Consult Reason for Consult: ESRD Source Source: Chart review, Patient History of Present Illness Reason for Visit: Patient is a 55-year-old AA male presented to the ER with c/o shortness of breath. He reports this has been going on for past 24 Reports some chest wall pain from coughing. Denies known sick contacts or recent travel. Denies any fever but has nasal congestion, rhinorrhea, postnasal drip, and dry nonproductive cough He has chronic respiratory failure uses 2 L oxygen at home . In the ER as found to be 75% on room air but no Resp distress , it improved with supplemental oxygen . He didnt go for dialysis yesterday 2/2 worsening dyspnea and hiccups Currently states he is feeling little better . No N/V /D . No F/C He was vaccinated with COVID in August Past Medical History Cardiovascular: CAD, HTN, Hyperlipidemia Pulmonary: No pertinent hx GI: GERD, Other Heme/Onc: Anemia NOS, Cancer, Other Hepatobiliary: Other Psych: Anxiety, Other Rheumatologic: No pertinent hx Infectious disease: No pertinent hx Renal/: Chronic renal insuff Endocrine: Diabetes Past Surgical History Past Surgical History: Cholecystectomy, Tonsillectomy, Other Family History Family History: Coronary Artery Disease, Diabetes, Hypertension, Kidney Disease Social History 1 pack per day ALCOHOL: other (heavy in past - sober since 2005) Lives: Alone Current Problem List Problem List Problems Medical Problems: (1) Chronic respiratory failure Status: Acute (2) ESRD on dialysis Status: Acute (3) Pneumonia Status: Acute Current Medications Current Medications Current Medications Nitroglycerin (Nitrostat) 0.4 mg PRN Q5MIN PRN SL CHEST PAIN Last administered on 04/17/21at 22:32; Start 04/17/21 at 22:30 Aspirin (Aspirin Chewable) 162 mg 1X ONCE PO Last administered on 04/17/21at 22:32; Start 04/17/21 at 23:00; Stop 04/17/21 at 23:01; Status DC Ceftriaxone Sodium (Rocephin) 1 gm 1X ONCE IVP Last administered on 04/17/21at 23:43; Start 04/17/21 at 23:00; Stop 04/17/21 at 23:01; Status DC Azithromycin 250 ml @ 250 mls/hr 1X ONCE IV Last administered on 04/17/21at 23:43; Start 04/17/21 at 23:00; Stop 04/17/21 at 23:59; Status DC Amlodipine Besylate (Norvasc) 10 mg DAILY PO ; Start 04/18/21 at 09:00 Aspirin (Ecotrin) 81 mg DAILY PO ; Start 04/18/21 at 09:00 Calcitriol (Rocaltrol) 0.25 mcg DAILY PO ; Start 04/18/21 at 09:00 Doxazosin Mesylate (Cardura) 4 mg DAILY PO ; Start 04/18/21 at 09:00 Acetaminophen/ Hydrocodone Bitart (Lortab 7.5/325) 1 tab PRN Q6HRS PRN PO MODERATE TO SEVERE PAIN; Start 04/18/21 at 08:45 Insulin Glargine (Lantus Syringe) 14 unit DAILY10 SQ ; Start 04/18/21 at 10:00 Isosorbide Mononitrate (Imdur) 60 mg DAILY PO ; Start 04/18/21 at 09:00 Amylase/Lipase/ Protease (Zenpep 10,000) 1 cap DAILYWBKFT PO ; Start 04/18/21 at 09:00 Sevelamer Carbonate (Renvela) 800 mg TIDWMEALS PO ; Start 04/18/21 at 12:00 Tizanidine HCl (Zanaflex) 4 mg QHS PO ; Start 04/18/21 at 21:00 Trazodone HCl (Desyrel) 100 mg QHS PO ; Start 04/18/21 at 21:00 Atorvastatin Calcium (Lipitor) 80 mg QHS PO ; Start 04/18/21 at 21:00 Carvedilol (Coreg) 25 mg BIDWMEALS PO ; Start 04/18/21 at 09:00 Hydralazine HCl (Apresoline) 100 mg TID PO ; Start 04/18/21 at 10:00 Mirtazapine (Remeron) 30 mg QHS PO ; Start 04/18/21 at 21:00 Fish Oil (Fish Oil) 1,000 mg DAILY PO ; Start 04/18/21 at 10:00 Insulin Human Lispro (HumaLOG) 0-8 UNITS BIDBFRMEAL SQ ; Start 04/18/21 at 16:30 Acetaminophen (Tylenol) 650 mg PRN Q6HRS PRN PO MILD PAIN / TEMP > 100.3'F; Start 04/18/21 at 08:45 Heparin Sodium (Porcine) (Heparin Sodium) 5,000 unit Q12HR SQ ; Start 04/18/21 at 10:00 Azithromycin (Zithromax) 250 mg DAILY PO ; Start 04/18/21 at 16:00; Status Cancel Albuterol/ Ipratropium (Duoneb) 3 ml RTQID NEB ; Start 04/18/21 at 12:00; Stop 04/18/21 at 12:01; Status DC Albuterol Sulfate (Ventolin Neb Soln) 2.5 mg PRN Q4HRS PRN NEB SHORTNESS OF BREATH; Start 04/18/21 at 10:30 Pantoprazole Sodium (Protonix) 40 mg DAILYAC PO ; Start 04/18/21 at 11:30 Piperacillin Sod/ Tazobactam Sod 2.25 gm/Sodium Chloride 50 ml @ 100 mls/hr Q6HRS IV ; Start 04/18/21 at 12:00; Stop 04/18/21 at 11:40; Status DC Azithromycin (Zithromax) 250 mg DAILY PO ; Start 04/18/21 at 12:00 Piperacillin Sod/ Tazobactam Sod 2.25 gm/Sodium Chloride 50 ml @ 100 mls/hr Q8HRS IV ; Start 04/18/21 at 14:00 Active Scripts Active Admelog (Insulin Lispro) 100 Unit/1 Ml Vial 6 Units SQ TIDWMEALS 30 Days Lantus (Insulin Glargine,Hum.rec.anlog) 100 Unit/1 Ml Vial 14 Unit SQ DAILY10 30 Days Calcitriol 0.25 Mcg Capsule 0.25 Mcg PO DAILY 30 Days Renvela (Sevelamer Carbonate) 800 Mg Tablet 800 Mg PO TIDWMEALS 30 Days Amlodipine Besylate 10 Mg Tablet 10 Mg PO DAILY 30 Days Isosorbide Mononitrate Er (Isosorbide Mononitrate) 30 Mg Tab.er.24h 60 Mg PO DAILY 30 Days Reported Tizanidine Hcl 4 Mg Tablet 1 Tab PO QHS Zenpep Dr 10,000 Units Capsule (Lipase/Protease/Amylase) 1 Each Capsule.dr 1 Each PO DAILY Doxazosin Mesylate 4 Mg Tablet 1 Tab PO DAILY Trazodone Hcl 100 Mg Tablet 1 Tab PO QHS Hydrocodone-Acetamin 7.5-325 (Hydrocodone/Acetaminophen) 1 Each Tablet 7.5-325 Mg PO Q6HRS PRN Mirtazapine 30 Mg Tab.rapdis 1 Tab PO QHS 30 Days Fish Oil 1,000 mg Softgel (Eagle-3/Dha/Epa/Fish Oil) 1,000 Mg Capsule 1,000 Mg PO DAILY Carvedilol 25 Mg Tablet 25 Mg PO BIDWMEALS Hydralazine Hcl 100 Mg Tablet 1 Tab PO TID Aspir 81 (Aspirin) 81 Mg Tablet.dr 1 Tab PO DAILY Atorvastatin Calcium 80 Mg Tablet 1 Tab PO DAILY Allergies Allergies: Coded Allergies: morphine (Verified Allergy, Intermediate, Itching, 06/29/20) lisinopril (Verified Adverse Reaction, Intermediate, Dry Cough, 04/17/21) Dry Cough ROS Review of System As per HPI, rest of the ROS is negative Physical Exam Physical Exam GENERAL: NAD HEENT: Normocephalic, atraumatic. Anicteric. NECK: Supple LUNGS: Clear bilaterally. Non labored HEART: S1, S2. ABDOMEN: Soft, nontender, nondistended, no rebound or guarding. EXTREMITIES: No edema, no cyanosis. DERMATOLOGIC: Warm, dry, no generalized rash. NEUROLOGIC: Alert and oriented x 3, grossly no focal deficit Generalized weakness. PSYCHIATRIC: Calm and cooperative. No ruth, No CVA or SP tenderness Vital Signs Vital Signs Date Time Temp Pulse Resp B/P (MAP) Pulse Ox O2 Delivery O2 Flow Rate FiO2 04/18/21 11:00 98.4 62 15 175/74 (107) 95 Nasal Cannula 3.0 98.4 Assessment & Plan ESRD on HD MWF, on HD since 2019 ; missed yesterday, K elevated last night . Dialysis today, discussed treatment plan with [facility] Undergoing Renal Tx eval at HypoNatremia- Dialysis today, Monitor HyperKalemia- Mild - labs last night , Last Hd was on Saturday. Dialysis today Acute on chronic hypoxic respiratory failure on 3 lts o2 by DC .CoVid Positive Management per Pulm/ID COVID 19 Pneumonia Accelerated hypertension Antihypertensives, HD today with UF . Renal Doppler in Aug 2019, No e/o JOSELYN Diabetes mellitus type 2. History of prostate cancer.s/p Radiation treatment Anemia - stable , No indication for LUCHO HX of CAD and [place] Labs Labs Laboratory Tests Test 04/17/21 22:10 04/17/21 22:35 04/18/21 08:20 04/18/21 10:40 White Blood Count 17.2 x10^3/uL (4.0-11.0) Red Blood Count 4.36 x10^6/uL (4.30-5.70) Hemoglobin 12.3 g/dL (13.0-17.5) Hematocrit 37.3 % (39.0-53.0) Mean Corpuscular Volume 86 fL (79-100) Mean Corpuscular Hemoglobin 28 pg (25-35) Mean Corpuscular Hemoglobin Concent 33 g/dL (31-37) Red Cell Distribution Width 16.4 % (11.5-14.5) Platelet Count 281 x10^3/uL (140-400) Neutrophils (%) (Auto) 89 % (31-73) Lymphocytes (%) (Auto) 6 % (24-48) Monocytes (%) (Auto) 4 % (0-9) Eosinophils (%) (Auto) 0 % (0-3) Basophils (%) (Auto) 1 % (0-3) Neutrophils # (Auto) 15.4 x10^3/uL (1.8-7.7) Lymphocytes # (Auto) 1.1 x10^3/uL (1.0-4.8) Monocytes # (Auto) 0.7 x10^3/uL (0.0-1.1) Eosinophils # (Auto) 0.0 x10^3/uL (0.0-0.7) Basophils # (Auto) 0.1 x10^3/uL (0.0-0.2) Segmented Neutrophils % 91 % (35-66) Lymphocytes % 5 % (24-48) Monocytes % 3 % (0-10) Basophils % 1 % (0-3) Platelet Estimate Adequate (ADEQUATE) Sodium Level 123 mmol/L (136-145) Potassium Level 5.5 mmol/L (3.5-5.1) Chloride Level 86 mmol/L (98-107) Carbon Dioxide Level 27 mmol/L (21-32) Anion Gap 10 (6-14) Blood Urea Nitrogen 36 mg/dL (8-26) Creatinine 7.2 mg/dL (0.7-1.3) Estimated GFR (Cockcroft-Gault) 9.7 BUN/Creatinine Ratio 5 (6-20) Glucose Level 159 mg/dL (70-99) Lactic Acid Level 1.1 mmol/L (0.4-2.0) Calcium Level 8.7 mg/dL (8.5-10.1) Phosphorus Level 5.7 mg/dL (2.6-4.7) Magnesium Level 1.8 mg/dL (1.8-2.4) Total Bilirubin 0.5 mg/dL (0.2-1.0) Aspartate Amino Transf (AST/SGOT) 6 U/L (15-37) Alanine Aminotransferase (ALT/SGPT) 10 U/L (16-63) Alkaline Phosphatase 126 U/L (46-116) Troponin I Quantitative < 0.017 ng/mL (0.000-0.055) DZ-Rmu-P-Type Natriuretic Peptide 4373 pg/mL (0-124) Total Protein 6.5 g/dL (6.4-8.2) Albumin 3.0 g/dL (3.4-5.0) Albumin/Globulin Ratio 0.9 (1.0-1.7) SARS-CoV-2 RNA (JOSE) Positive (Negative) SARS-CoV-2 Antigen (Rapid) Negative (NEGATIVE) Glucose (Fingerstick) 119 mg/dL (70-99) Procalcitonin 1.59 ng/mL (0.00-0.10) Test 04/18/21 11:45 Glucose (Fingerstick) 274 mg/dL (70-99) Laboratory Tests Test 04/17/21 22:10 04/17/21 22:35 04/18/21 08:20 04/18/21 10:40 White Blood Count 17.2 x10^3/uL (4.0-11.0) Red Blood Count 4.36 x10^6/uL (4.30-5.70) Hemoglobin 12.3 g/dL (13.0-17.5) Hematocrit 37.3 % (39.0-53.0) Mean Corpuscular Volume 86 fL (79-100) Mean Corpuscular Hemoglobin 28 pg (25-35) Mean Corpuscular Hemoglobin Concent 33 g/dL (31-37) Red Cell Distribution Width 16.4 % (11.5-14.5) Platelet Count 281 x10^3/uL (140-400) Neutrophils (%) (Auto) 89 % (31-73) Lymphocytes (%) (Auto) 6 % (24-48) Monocytes (%) (Auto) 4 % (0-9) Eosinophils (%) (Auto) 0 % (0-3) Basophils (%) (Auto) 1 % (0-3) Neutrophils # (Auto) 15.4 x10^3/uL (1.8-7.7) Lymphocytes # (Auto) 1.1 x10^3/uL (1.0-4.8) Monocytes # (Auto) 0.7 x10^3/uL (0.0-1.1) Eosinophils # (Auto) 0.0 x10^3/uL (0.0-0.7) Basophils # (Auto) 0.1 x10^3/uL (0.0-0.2) Segmented Neutrophils % 91 % (35-66) Lymphocytes % 5 % (24-48) Monocytes % 3 % (0-10) Basophils % 1 % (0-3) Platelet Estimate Adequate (ADEQUATE) Sodium Level 123 mmol/L (136-145) Potassium Level 5.5 mmol/L (3.5-5.1) Chloride Level 86 mmol/L (98-107) Carbon Dioxide Level 27 mmol/L (21-32) Anion Gap 10 (6-14) Blood Urea Nitrogen 36 mg/dL (8-26) Creatinine 7.2 mg/dL (0.7-1.3) Estimated GFR (Cockcroft-Gault) 9.7 BUN/Creatinine Ratio 5 (6-20) Glucose Level 159 mg/dL (70-99) Lactic Acid Level 1.1 mmol/L (0.4-2.0) Calcium Level 8.7 mg/dL (8.5-10.1) Phosphorus Level 5.7 mg/dL (2.6-4.7) Magnesium Level 1.8 mg/dL (1.8-2.4) Total Bilirubin 0.5 mg/dL (0.2-1.0) Aspartate Amino Transf (AST/SGOT) 6 U/L (15-37) Alanine Aminotransferase (ALT/SGPT) 10 U/L (16-63) Alkaline Phosphatase 126 U/L (46-116) Troponin I Quantitative < 0.017 ng/mL (0.000-0.055) DR-Clc-T-Type Natriuretic Peptide 4373 pg/mL (0-124) Total Protein 6.5 g/dL (6.4-8.2) Albumin 3.0 g/dL (3.4-5.0) Albumin/Globulin Ratio 0.9 (1.0-1.7) SARS-CoV-2 RNA (JOSE) Positive (Negative) SARS-CoV-2 Antigen (Rapid) Negative (NEGATIVE) Glucose (Fingerstick) 119 mg/dL (70-99) Procalcitonin 1.59 ng/mL (0.00-0.10) Test 04/18/21 11:45 Glucose (Fingerstick) 274 mg/dL (70-99) Review All relevant outside records, renal labs, imaging studies, telemetry/EKG's were reviewed. Images Images XR CHEST 1V History: Reason: SHOB / Spl. Instructions: / History: Comparison: December 16, 2020. Findings: Mild bilateral reticular interstitial thickening. Increased right upper and midlung opacities. No pleural effusion. No pneumothorax. Normal heart size. Impression: 1. Increased right upper and mid lung opacities, may represent pneumonia including viral pneumonia. Recommend follow-up to ensure resolution. 2. Mild bilateral reticular interstitial thickening, may indicate chronic interstitial changes. Electronically signed by: Omid Arnold DO (04/17/2021 10:36 PM) [facility]LO RAHMAN MD Apr 18, 2021 12:22
[2021-04-18] MEDS: HYDROcodone/APAP 7.5/325MG 1 TAB TABLET PO PRN (14:35)
[2021-04-18] MEDS ORDERED: IV NORMAL SALINE 1000ML BAG 1,000 ML IV PRN (15:00)
[2021-04-18] MEDS ORDERED: REMDESIVIR LOAD in IV NORMAL SALINE 250ML TV IV ONE (15:00)
[2021-04-18] MEDS: PIPERACILLIN/TAZOBACTAM 2.25 GM in IV NORMAL SALINE 50ML 50 ML IV SCH ×2 (15:37→22:01)
[2021-04-18] MEDS ORDERED: AZITHROMYCIN 250 MG TABLET. PO SCH (16:00)
[2021-04-18] MEDS: INSULIN LISPRO 300 UNITS/3 ML VIAL. SQ SCH (16:30)
[2021-04-18] MEDS: DEXAMETHASONE SOD PHOS 4 MG/ML VIAL IVP SCH (16:35)
--- NOTE | 2021-04-18 18:04 | NUR ---
Nurse's note: Patient tested positive for Dr. Isaac ORTIZ informed; new orders received. Non administered meds; patient is in dialysis now.
[2021-04-18] MEDS ORDERED: DIALYSIS PATIENT. MC PRN ×2 (21:30)
[2021-04-18] MEDS: tiZANidine 4 MG TABLET. PO SCH (21:59)
[2021-04-18] MEDS: traZODone 100 MG TABLET. PO SCH (21:59)
[2021-04-18] MEDS: MIRTAZAPINE 15 MG TABLET PO SCH (21:59)
[2021-04-18] MEDS: ATORVASTATIN CALCIUM 40 MG TABLET. PO SCH (22:00)
[2021-04-18] MEDS: LACTOBACILLUS RHAMNOSUS GG 1 CAPSULE. PO SCH (22:00)
[2021-04-19 03:28] VITALS: BP 158/70
[2021-04-19] MEDS: PIPERACILLIN/TAZOBACTAM 2.25 GM in IV NORMAL SALINE 50ML 50 ML IV SCH (05:44)
[2021-04-19 07:00] VITALS: BP 188/83
[2021-04-19] MEDS: ISOSORBIDE MONONITRATE ER 30 MG TAB.ER.24H PO SCH (07:25)
[2021-04-19] MEDS: CARVEDILOL 12.5 MG TABLET. PO SCH ×2 (07:26→17:59)
[2021-04-19] MEDS ORDERED: INSULIN LISPRO 300 UNITS/3 ML VIAL. SQ SCH (08:15)
[2021-04-19] MEDS: LIPASE/PROTEAS/AMYLAS 10/32/42 CAPSULE.DR. PO SCH (08:42)
[2021-04-19] MEDS: ASPIRIN ENTERIC COATED 81 MG TABLET.DR. PO SCH (08:42)
[2021-04-19] MEDS: OMEGA-3 FATTY ACIDS/FISH OIL 1,000 MG CAPSULE. PO SCH (08:42)
[2021-04-19] MEDS: DOXAZOSIN MESYLATE 4 MG TABLET. PO SCH (08:43)
[2021-04-19] MEDS: CALCITRIOL 0.25 MCG CAPSULE. PO SCH (08:43)
[2021-04-19] MEDS: PANTOPRAZOLE 40 MG TABLET.DR. PO SCH (08:43)
[2021-04-19] MEDS: SEVELAMER CARBONATE 800 MG TABLET. PO SCH ×3 (08:43→17:42)
[2021-04-19] MEDS: AZITHROMYCIN 250 MG TABLET. PO SCH (08:43)
[2021-04-19] MEDS: LACTOBACILLUS RHAMNOSUS GG 1 CAPSULE. PO SCH ×2 (08:43→22:43)
[2021-04-19] MEDS: DEXAMETHASONE SOD PHOS 4 MG/ML VIAL IVP SCH (08:44)
[2021-04-19] MEDS: INSULIN LISPRO 300 UNITS/3 ML VIAL. SQ SCH ×5 (08:47→17:57)
[2021-04-19] MEDS: HEPARIN for SUB-Q USE 5,000 UNIT/ML VIAL. SQ SCH ×2 (08:47→22:46)
[2021-04-19] MEDS: INSULIN GLARGINE SYRINGE. SQ SCH (08:50)
--- NOTE | 2021-04-19 09:07 | PDOC ---
IM PROGRESS NOTES- Subjective Subjective Complaints of cough and congestion with some dyspnea. Continues to have a lot of hiccups. Objective Vitals/I&O Vital Signs Date Time Temp Pulse Resp B/P (MAP) Pulse Ox O2 Delivery O2 Flow Rate FiO2 04/19/21 08:43 66 202/81 04/19/21 07:00 98.6 16 96 Nasal Cannula 3.0 98.6 I & O 04/18/21 04/18/21 04/19/21 15:00 23:00 07:00 Intake Total 360 ml 260 ml 350 ml Output Total 150 ml 400 ml Balance 210 ml -140 ml 350 ml Physical Exam Physical Exam General Appearance - alert and in mild distress Chest - decreased breath sounds at bases Heart - S1 and S2 normal Abdomen - soft, non tender Neurological - alert and oriented Musculoskeletal - generalized weakness Extremities - no edema Labs Laboratory Tests Test 04/18/21 10:40 04/18/21 11:45 04/18/21 17:30 04/19/21 07:17 Procalcitonin 1.59 ng/mL (0.00-0.10) H Glucose (Fingerstick) 274 mg/dL (70-99) H 236 mg/dL (70-99) H 454 mg/dL (70-99) H Meds Current Medications Medications (Trade) Dose Ordered Sig/Ravinder Route PRN Reason Start Time Stop Time Status Last Admin Dose Admin Insulin Glargine (Lantus Syringe) 14 unit DAILY10 SQ 04/18/21 10:00 04/19/21 08:04 DC 04/18/21 12:15 Sevelamer Carbonate (Renvela) 800 mg TIDWMEALS PO 04/18/21 12:00 04/19/21 08:43 Tizanidine HCl (Zanaflex) 4 mg QHS PO 04/18/21 21:00 04/18/21 21:59 Trazodone HCl (Desyrel) 100 mg QHS PO 04/18/21 21:00 04/18/21 21:59 Atorvastatin Calcium (Lipitor) 80 mg QHS PO 04/18/21 21:00 04/18/21 22:00 Hydralazine HCl (Apresoline) 100 mg TID PO 04/18/21 10:00 04/19/21 07:25 Mirtazapine (Remeron) 30 mg QHS PO 04/18/21 21:00 04/18/21 21:59 Fish Oil (Fish Oil) 1,000 mg DAILY PO 04/18/21 10:00 04/19/21 08:42 Insulin Human Lispro (HumaLOG) 0-8 UNITS BIDBFRMEAL SQ 04/18/21 16:30 04/19/21 08:47 Heparin Sodium (Porcine) (Heparin Sodium) 5,000 unit Q12HR SQ 04/18/21 10:00 04/19/21 08:47 Pantoprazole Sodium (Protonix) 40 mg DAILYAC PO 04/18/21 11:30 04/19/21 08:43 Azithromycin (Zithromax) 250 mg DAILY PO 04/18/21 12:00 04/19/21 08:43 Piperacillin Sod/ Tazobactam Sod 2.25 gm/Sodium Chloride 50 ml @ 100 mls/hr Q8HRS IV 04/18/21 14:00 04/19/21 05:44 Remdesivir 200 mg/ Sodium Chloride 210 ml @ 210 mls/hr 1X ONCE IV 04/18/21 15:00 04/18/21 15:59 DC 04/18/21 15:38 Dexamethasone Sodium Phosphate (Decadron) 6 mg DAILY IVP 04/18/21 16:00 04/19/21 08:44 Lactobacillus Rhamnosus (Culturelle) 1 cap BID PO 04/18/21 21:00 04/19/21 08:43 Insulin Glargine (Lantus Syringe) 16 unit DAILY SQ 04/19/21 09:00 04/19/21 08:50 Insulin Human Lispro (HumaLOG) 4 units TIDAC SQ 04/19/21 08:15 04/19/21 08:48 Assessment Assessment 1. Pneumonia, right sided. COVID-19 pneumonia. 2. Exacerbation of chronic obstructive pulmonary disease. 3. Acute on chronic hypoxic respiratory failure. 4. End-stage renal disease, on hemodialysis Saturday, Saturday, Saturday. 5. Hiccups. 6. Gastroesophageal reflux disease. 7. Accelerated hypertension. 8. 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 9. Hyperlipidemia. 10. Coronary artery disease with history of stent placement. 11. Chronic pancreatitis. 12. Anemia. 13. History of myocardial infarction. 14. Surgery for removal of salivary gland. 15. History of prostate cancer, treated with radiation therapy. 16. Physical deconditioning. 17. Osteoarthritis. 18. Chronic back pain. PLAN: 1. Pneumonia. COVID-19 PCR test is positive. Has COVID-[address] Gray. Start IV Rocephin and Zithromax that were given yesterday. I will consult Dr. Gretel Aguilar for Infectious Disease evaluation because of his multiple medical problems. Started on IV remdesivir and IV dexamethasone. Discussed with Dr. Gray. 2. Exacerbation of COPD. 3. Acute on chronic hypoxic respiratory failure. Continue oxygen by nasal cannula. 4. End-stage renal disease, on hemodialysis. Consult Dr. Riddle for Nephrology evaluation and management. He will get hemodialysis today. 5. Persistent hiccups. Continue home medications as the patient also has gastroesophageal reflux disease. Pantoprazole. Consult Dr. Santo for GI evaluation and management. Add Promethazine. 6. COVID-19 rapid antigen test was negative in the ER. However COVID-19 PCR test is positive. 7. Diabetes mellitus not controlled due to infection as well as IV steroids. Restart Lantus and increase scheduled insulin and sliding scale insulin. 8. Accelerated hypertension. Continue present treatment. Add IV hydralazine 10 mg as needed every 4 hours. For details, please refer to the orders. Prognosis of this patient is poor due to his multiple medical problems. Plan Plan For more details regarding further plans, please refer to the orders. Justifications for Admission Other Justification TRINA ALDANA MD Apr 19, 2021 09:07
--- NOTE | 2021-04-19 09:19 | PDOC ---
Infectious Disease Note Subjective: Subjective Patient feels much better Remains on 3 L O2 by nasal cannula No further episodes of nausea vomiting diarrhea Vital Signs: Vital Signs Vital Signs Date Time Temp Pulse Resp B/P (MAP) Pulse Ox O2 Delivery O2 Flow Rate FiO2 04/19/21 08:43 66 202/81 04/19/21 07:00 98.6 16 96 Nasal Cannula 3.0 98.6 Physical Exam: PHYSICAL EXAM GENERAL: Alert, oriented x 3 male, lying in bed comfortably, in no acute distress, HEENT: Normocephalic, atraumatic. Anicteric. NECK: Supple, no JVD. LUNGS: Clear bilaterally. No wheezing. HEART: S1, S2. ABDOMEN: Soft, nontender, nondistended, no rebound or guarding. EXTREMITIES: No edema, no cyanosis. DERMATOLOGIC: Warm, dry, no generalized rash. NEUROLOGIC: Alert and oriented x 3, grossly nonfocal. Generalized weakness. PSYCHIATRIC: Calm and cooperative. Medications: Inpatient Meds: Medications reviewed. Labs: Lab Laboratory Tests Test 04/18/21 10:40 04/18/21 11:45 04/18/21 17:30 04/19/21 07:17 Procalcitonin 1.59 ng/mL (0.00-0.10) Glucose (Fingerstick) 274 mg/dL (70-99) 236 mg/dL (70-99) 454 mg/dL (70-99) Objective: Assessment: COVID-19 infection 1. Acute on chronic hypoxic respiratory failure. 2. Leukocytosis. Could have reactive component 3. Pulmonary infiltrates more on the right side. SARS COVID rapid negative. 4. End-stage renal disease, on hemodialysis. 5. History of nausea, vomiting and diarrhea, improving, could be gastroenteritis. 6. Accelerated hypertension. 7. Diabetes mellitus type 2. 8. History of prostate cancer. 9. Hyponatremia 10. Nausea vomiting diarrhea prior to admission could be viral Plan: Plan of Care Continue supportive care On steroids and Remdesivir DC Zosyn and azithromycin Monitor labs and cultures Discussed with nursing staff SACHI BANUELOS MD Apr 19, 2021 09:19
--- NOTE | 2021-04-19 10:04 | PDOC ---
PULMONARY PROGRESS NOTES DATE: 04/19/21 TIME: 10:01 Subjective no soa on canula Vitals Vital Signs Date Time Temp Pulse Resp B/P (MAP) Pulse Ox O2 Delivery O2 Flow Rate FiO2 04/19/21 08:43 66 202/81 04/19/21 07:00 98.6 16 96 Nasal Cannula 3.0 98.6 General: Alert, No acute distress Lungs: Clear Cardiovascular: S1 Abdomen: Soft Extremities: No Edema Labs Laboratory Tests Test 04/17/21 22:10 04/17/21 22:35 04/18/21 08:20 04/18/21 10:40 White Blood Count 17.2 x10^3/uL (4.0-11.0) Red Blood Count 4.36 x10^6/uL (4.30-5.70) Hemoglobin 12.3 g/dL (13.0-17.5) Hematocrit 37.3 % (39.0-53.0) Mean Corpuscular Volume 86 fL (79-100) Mean Corpuscular Hemoglobin 28 pg (25-35) Mean Corpuscular Hemoglobin Concent 33 g/dL (31-37) Red Cell Distribution Width 16.4 % (11.5-14.5) Platelet Count 281 x10^3/uL (140-400) Neutrophils (%) (Auto) 89 % (31-73) Lymphocytes (%) (Auto) 6 % (24-48) Monocytes (%) (Auto) 4 % (0-9) Eosinophils (%) (Auto) 0 % (0-3) Basophils (%) (Auto) 1 % (0-3) Neutrophils # (Auto) 15.4 x10^3/uL (1.8-7.7) Lymphocytes # (Auto) 1.1 x10^3/uL (1.0-4.8) Monocytes # (Auto) 0.7 x10^3/uL (0.0-1.1) Eosinophils # (Auto) 0.0 x10^3/uL (0.0-0.7) Basophils # (Auto) 0.1 x10^3/uL (0.0-0.2) Segmented Neutrophils % 91 % (35-66) Lymphocytes % 5 % (24-48) Monocytes % 3 % (0-10) Basophils % 1 % (0-3) Platelet Estimate Adequate (ADEQUATE) Sodium Level 123 mmol/L (136-145) Potassium Level 5.5 mmol/L (3.5-5.1) Chloride Level 86 mmol/L (98-107) Carbon Dioxide Level 27 mmol/L (21-32) Anion Gap 10 (6-14) Blood Urea Nitrogen 36 mg/dL (8-26) Creatinine 7.2 mg/dL (0.7-1.3) Estimated GFR (Cockcroft-Gault) 9.7 BUN/Creatinine Ratio 5 (6-20) Glucose Level 159 mg/dL (70-99) Lactic Acid Level 1.1 mmol/L (0.4-2.0) Calcium Level 8.7 mg/dL (8.5-10.1) Phosphorus Level 5.7 mg/dL (2.6-4.7) Magnesium Level 1.8 mg/dL (1.8-2.4) Total Bilirubin 0.5 mg/dL (0.2-1.0) Aspartate Amino Transf (AST/SGOT) 6 U/L (15-37) Alanine Aminotransferase (ALT/SGPT) 10 U/L (16-63) Alkaline Phosphatase 126 U/L (46-116) Troponin I Quantitative < 0.017 ng/mL (0.000-0.055) BF-Fgr-N-Type Natriuretic Peptide 4373 pg/mL (0-124) Total Protein 6.5 g/dL (6.4-8.2) Albumin 3.0 g/dL (3.4-5.0) Albumin/Globulin Ratio 0.9 (1.0-1.7) SARS-CoV-2 RNA (JOSE) Positive (Negative) SARS-CoV-2 Antigen (Rapid) Negative (NEGATIVE) Glucose (Fingerstick) 119 mg/dL (70-99) Procalcitonin 1.59 ng/mL (0.00-0.10) Test 04/18/21 11:45 04/18/21 17:30 04/19/21 07:17 Glucose (Fingerstick) 274 mg/dL (70-99) 236 mg/dL (70-99) 454 mg/dL (70-99) Laboratory Tests Test 04/18/21 10:40 04/18/21 11:45 04/18/21 17:30 04/19/21 07:17 Procalcitonin 1.59 ng/mL (0.00-0.10) Glucose (Fingerstick) 274 mg/dL (70-99) 236 mg/dL (70-99) 454 mg/dL (70-99) Medications Active Scripts Medications Dose Route/Sig Max Daily Dose Days Date Category Tizanidine Hcl 4 Mg Tablet 1 Tab PO QHS 04/18/[address] 10,000 Units Capsule (Lipase/Protease/Amylase) 1 Each Capsule.dr 1 Each PO DAILY 04/18/21 Reported Doxazosin Mesylate 4 Mg Tablet 1 Tab PO DAILY 04/18/21 Reported Admelog (Insulin Lispro) 100 Unit/1 Ml Vial 6 Units SQ TIDWMEALS 30 12/17/20 Rx Lantus (Insulin Glargine,Hum.rec.anlog) 100 Unit/1 Ml Vial 14 Unit SQ DAILY10 30 12/17/20 Rx Trazodone Hcl 100 Mg Tablet 1 Tab PO QHS 12/16/20 Reported Calcitriol 0.25 Mcg Capsule 0.25 Mcg PO DAILY 30 07/04/20 Rx Renvela (Sevelamer Carbonate) 800 Mg Tablet 800 Mg PO TIDWMEALS 30 07/04/20 Rx Hydrocodone-Acetamin 7.5-325 (Hydrocodone/Acetaminophen) 1 Each Tablet 7.5-325 Mg PO Q6HRS PRN 07/01/20 Reported Mirtazapine 30 Mg Tab.rapdis 1 Tab PO QHS 30 06/29/20 Reported Fish Oil 1,000 mg Softgel (Fenton-3/Dha/Epa/Fish Oil) 1,000 Mg Capsule 1,000 Mg PO DAILY 06/29/20 Reported Carvedilol 25 Mg Tablet 25 Mg PO BIDWMEALS 06/29/20 Reported Hydralazine Hcl 100 Mg Tablet 1 Tab PO TID 06/29/20 Reported Amlodipine Besylate 10 Mg Tablet 10 Mg PO DAILY 30 09/13/19 Rx Isosorbide Mononitrate Er (Isosorbide Mononitrate) 30 Mg Tab.er.24h 60 Mg PO DAILY 30 09/13/19 Rx Aspir 81 (Aspirin) 81 Mg Tablet.dr 1 Tab PO DAILY 08/26/17 Reported Atorvastatin Calcium 80 Mg Tablet 1 Tab PO DAILY 08/26/17 Reported Impression . IMPRESSION: 1. Acute hypoxic respiratory failure, due to COVID-19 viral pneumonia/mild CHF 2. The patient with vomiting, diarrhea and cough. Could be aspiration pneumonia versus viral pneumonia pneumonia. The patient is vaccinated with COVID and COVID rapid is negative. PCR positive 3. End-stage renal disease, on hemodialysis. 4. Hyponatremia. 5. 30 years of tobaccoism, likely underlying chronic obstructive pulmonary disease. Plan . 1. Dexamethasone initiated. 2. Follow remdesivir per protocol. 3. Continue empiric antibiotics. 4. procalcitonin level. 1.5 5. Close monitoring of blood pressure per PCP. 6. Heparin for DVT prophylaxis. 7. Smoking cessation counseling provided. 8. Follow renal recommendation. 9. Discussed with the patient and RN. FABY ROSE MD Apr 19, 2021 10:04
[2021-04-19 11:00] VITALS: BP 156/67
--- NOTE | 2021-04-19 11:04 | PDOC ---
Date of Service: DATE: 04/19/21 TIME: 11:01 Objective: Objective: D/w nurse - no hiccups from the time he finished dialysis yesterday until recurred this morning. Tolerating diet. Hasn't been given Compazine. Vital Signs: Vital Signs Date Time Temp Pulse Resp B/P (MAP) Pulse Ox O2 Delivery O2 Flow Rate FiO2 04/19/21 08:43 66 202/81 04/19/21 07:00 98.6 16 96 Nasal Cannula 3.0 98.6 Labs: Laboratory Tests Test 04/18/21 11:45 04/18/21 17:30 04/19/21 07:17 Glucose (Fingerstick) 274 mg/dL 236 mg/dL 454 mg/dL PE: GEN: exam deferred - in COVID isolation A/P: COVID Hiccups ACD, DM, ESRD on HD GERD, chronic pancreatitis -- Plans to try Compazine. Continue PPI. Supportive care. Justicifation of Admission Dx: Justifications for Admission: Justification of Admission Dx: N/A KIMMY MARAVILLA Apr 19, 2021 11:03
[2021-04-19] MEDS: PROMETHAZINE 12.5 MG TABLET. PO PRN ×2 (11:10→21:13)
[2021-04-19 11:12] LABS: BASO % 0 % (0-3); EOS % 0 % (0-3); HEMATOCRIT 34.7 % (39.0-53.0); HEMOGLOBIN 11.3 g/dL (13.0-17.5); LYMPH # 0.6 x10^3/uL (1.0-4.8); LYMPH % 6 % (24-48); MEAN CORPUSCULAR HEMOGLOBIN 28 pg (25-35); MEAN CORPUSCULAR HGB CONC 33 g/dL (31-37); MEAN CORPUSCULAR VOLUME 87 fL (79-100); MONO # 0.4 x10^3/uL (0.0-1.1); MONO % 4 % (0-9); NEUT # 8.4 x10^3/uL (1.8-7.7); NEUT % 89 % (31-73); PLATELET COUNT 268 x10^3/uL (140-400); RED BLOOD COUNT 4.01 x10^6/uL (4.30-5.70); RED CELL DISTRIBUTION WIDTH 16.5 % (11.5-14.5); WHITE BLOOD COUNT 9.4 x10^3/uL (4.0-11.0)
[2021-04-19 11:46] LABS: ALBUMIN 2.2 g/dL (3.4-5.0); ALBUMIN/GLOBULIN RATIO 0.6 (1.0-1.7); ALK PHOS 116 U/L (46-116); ANION GAP 9 (6-14); AST (SGOT) 5 U/L (15-37); BLOOD UREA NITROGEN 31 mg/dL (8-26); BUN/CREATININE RATIO 5 (6-20); CALCIUM 8.4 mg/dL (8.5-10.1); CARBON DIOXIDE 26 mmol/L (21-32); CHLORIDE 90 mmol/L (98-107); CREATININE 6.5 mg/dL (0.7-1.3); GFR 10.9; GLUCOSE 301 mg/dL (70-99); PHOSPHORUS 4.3 mg/dL (2.6-4.7); POTASSIUM 4.4 mmol/L (3.5-5.1); SODIUM 125 mmol/L (136-145); TOTAL BILIRUBIN 0.2 mg/dL (0.2-1.0); TOTAL PROTEIN 6.2 g/dL (6.4-8.2)
[2021-04-19 11:48] LABS: ALT (SGPT) < 6 U/L (16-63)
[2021-04-19] MEDS ORDERED: IV NORMAL SALINE 1000ML BAG 1,000 ML IV PRN ×2 (13:30)
[2021-04-19] MEDS ORDERED: DIALYSIS PATIENT. MC PRN ×2 (13:30)
[2021-04-19] MEDS ORDERED: ALBUMIN HUMAN 25% 100 ML IV PRN (13:30)
[2021-04-19] MEDS: REMDESIVIR 100mg in NORMAL SALINE 250ML X 4 DAYS IV SCH (17:41)
[2021-04-19] MEDS: PROCHLORPERAZINE 5 MG TABLET. PO PRN ×2 (17:42→22:42)
[2021-04-19] MEDS: hydrALAZINE 20 MG/ML VIAL. IVP PRN (18:04)
[2021-04-19 19:00] VITALS: BP 177/77
[2021-04-19] MEDS: HYDROcodone/APAP 7.5/325MG 1 TAB TABLET PO PRN (19:36)
[2021-04-19] MEDS: ATORVASTATIN CALCIUM 40 MG TABLET. PO SCH (22:42)
[2021-04-19] MEDS: traZODone 100 MG TABLET. PO SCH (22:43)
[2021-04-19] MEDS: tiZANidine 4 MG TABLET. PO SCH (22:43)
[2021-04-19] MEDS: MIRTAZAPINE 15 MG TABLET PO SCH (22:43)
[2021-04-19 22:50] VITALS: BP 185/82
[2021-04-20] VITALS (7 sets, daily range): BP systolic 166–201; BP diastolic 72–84
[2021-04-20] MEDS: ISOSORBIDE MONONITRATE ER 30 MG TAB.ER.24H PO SCH (08:19)
[2021-04-20] MEDS: DOXAZOSIN MESYLATE 4 MG TABLET. PO SCH (08:20)
[2021-04-20] MEDS: OMEGA-3 FATTY ACIDS/FISH OIL 1,000 MG CAPSULE. PO SCH (08:20)
[2021-04-20] MEDS: CARVEDILOL 12.5 MG TABLET. PO SCH ×2 (08:20→17:43)
[2021-04-20] MEDS: LIPASE/PROTEAS/AMYLAS 10/32/42 CAPSULE.DR. PO SCH (08:20)
[2021-04-20] MEDS: LACTOBACILLUS RHAMNOSUS GG 1 CAPSULE. PO SCH ×2 (08:20→21:35)
[2021-04-20] MEDS: HEPARIN for SUB-Q USE 5,000 UNIT/ML VIAL. SQ SCH ×2 (08:21→21:36)
[2021-04-20] MEDS: SEVELAMER CARBONATE 800 MG TABLET. PO SCH ×3 (08:21→17:43)
[2021-04-20] MEDS: ASPIRIN ENTERIC COATED 81 MG TABLET.DR. PO SCH (08:21)
[2021-04-20] MEDS: INSULIN LISPRO 300 UNITS/3 ML VIAL. SQ SCH ×6 (08:22→17:41)
[2021-04-20] MEDS: CALCITRIOL 0.25 MCG CAPSULE. PO SCH (08:23)
[2021-04-20] MEDS: DEXAMETHASONE SOD PHOS 4 MG/ML VIAL IVP SCH (08:23)
[2021-04-20] MEDS: PANTOPRAZOLE 40 MG TABLET.DR. PO SCH (08:23)
[2021-04-20 08:26] LABS: BASO % 0 % (0-3); EOS % 0 % (0-3); HEMATOCRIT 33.4 % (39.0-53.0); LYMPH # 1.6 x10^3/uL (1.0-4.8); LYMPH % 14 % (24-48); MEAN CORPUSCULAR HEMOGLOBIN 28 pg (25-35); MEAN CORPUSCULAR HGB CONC 33 g/dL (31-37); MEAN CORPUSCULAR VOLUME 86 fL (79-100); MONO # 0.8 x10^3/uL (0.0-1.1); MONO % 7 % (0-9); NEUT # 9.5 x10^3/uL (1.8-7.7); NEUT % 79 % (31-73); PLATELET COUNT 289 x10^3/uL (140-400); RED BLOOD COUNT 3.89 x10^6/uL (4.30-5.70); RED CELL DISTRIBUTION WIDTH 16.4 % (11.5-14.5)
[2021-04-20] MEDS: PROMETHAZINE 12.5 MG TABLET. PO PRN ×3 (08:37→21:51)
[2021-04-20 08:51] LABS: ALBUMIN 2.2 g/dL (3.4-5.0); ALBUMIN/GLOBULIN RATIO 0.6 (1.0-1.7); ALK PHOS 121 U/L (46-116); ALT (SGPT) < 6 U/L (16-63); ANION GAP 7 (6-14); AST (SGOT) 12 U/L (15-37); BLOOD UREA NITROGEN 26 mg/dL (8-26); BUN/CREATININE RATIO 6 (6-20); CALCIUM 8.3 mg/dL (8.5-10.1); CARBON DIOXIDE 29 mmol/L (21-32); CHLORIDE 92 mmol/L (98-107); CREATININE 4.2 mg/dL (0.7-1.3); GLUCOSE 232 mg/dL (70-99); POTASSIUM 3.8 mmol/L (3.5-5.1); SODIUM 128 mmol/L (136-145); TOTAL BILIRUBIN 0.2 mg/dL (0.2-1.0)
--- NOTE | 2021-04-20 09:18 | PDOC ---
DATE OF SERVICE DATE: 04/19/21 TIME: 15:30 Late Entry SUBJECTIVE ROS Seen during dialysis. Still c/o Hiccups, states thats his main problem Denies SOB OBJECTIVE Vital Signs Vital Signs Date Time Temp Pulse Resp B/P (MAP) Pulse Ox O2 Delivery O2 Flow Rate FiO2 04/20/21 08:24 68 188/79 04/20/21 07:00 98.2 18 96 Nasal Cannula 3.0 98.2 I & 0 Intake and Output 04/20/21 07:00 Intake Total 720 ml Output Total 300 ml Balance 420 ml Intake Oral 720 ml Output Urine Total 300 ml PHYSICAL EXAM Physical Exam GENERAL: NAD HEENT: Normocephalic, atraumatic. Anicteric. NECK: Supple LUNGS: Clear bilaterally. Non labored HEART: S1, S2. ABDOMEN: Soft, nontender, nondistended, no rebound or guarding. EXTREMITIES: No edema, no cyanosis. DERMATOLOGIC: Warm, dry, no generalized rash. NEUROLOGIC: Alert and oriented x 3, grossly no focal deficit Generalized weakness. PSYCHIATRIC: Calm and cooperative. No ruth, No CVA or SP tenderness DIAGNOSIS/ASSESSMENT Assessment & Plan ESRD on HD MWF, on HD since 2019 ; Seen during dialysis, tolerating well. Continue as ordered, Smooth Canela Undergoing Renal Tx eval at HypoNatremia-Low Na but stable HyperKalemia- Resolved Acute on chronic hypoxic respiratory failure on 3 lts o2 by LILI .CoVid Positive Management per Pulm/ID COVID 19 Pneumonia Accelerated hypertension Antihypertensives, HD today with UF . Renal Doppler in Aug 2019, No e/o JOSELYN Diabetes mellitus type 2. History of prostate cancer.s/p Radiation treatment Anemia - stable , No indication for LUCHO HX of CAD and [place] COMMENT/RELEVANT DATA Meds Current Medications Medications (Trade) Dose Ordered Sig/Ravinder Start Time Stop Time Status Last Admin Dose Admin Acetaminophen (Tylenol) 650 mg PRN Q6HRS PRN 04/18/21 08:45 Acetaminophen/ Hydrocodone Bitart (Lortab 7.5/325) 1 tab PRN Q6HRS PRN 04/18/21 08:45 04/19/21 19:36 1 TAB Albumin Human 100 ml @ 100 mls/hr 1X PRN PRN 04/19/21 13:30 04/19/21 19:29 DC Albuterol Sulfate (Ventolin Neb Soln) 2.5 mg PRN Q4HRS PRN 04/18/21 10:30 Albuterol/ Ipratropium (Duoneb) 3 ml RTQID 04/18/21 12:00 04/18/21 12:01 DC Amlodipine Besylate (Norvasc) 10 mg DAILY 04/18/21 09:00 04/20/21 08:20 10 MG Amylase/Lipase/ Protease (Zenpep 10,000) 1 cap DAILYWBKFT 04/18/21 09:00 04/20/21 08:20 1 CAP Aspirin (Aspirin Chewable) 162 mg 1X ONCE 04/17/21 23:00 04/17/21 23:01 DC 04/17/21 22:32 162 MG Aspirin (Ecotrin) 81 mg DAILY 04/18/21 09:00 04/20/21 08:21 81 MG Atorvastatin Calcium (Lipitor) 80 mg QHS 04/18/21 21:00 04/19/21 22:42 80 MG Azithromycin (Zithromax) 250 mg DAILY 04/18/21 12:00 04/19/21 09:20 DC 04/19/21 08:43 250 MG Calcitriol (Rocaltrol) 0.25 mcg DAILY 04/18/21 09:00 04/20/21 08:23 0.25 MCG Carvedilol (Coreg) 25 mg BIDWMEALS 04/18/21 09:00 04/20/21 08:20 25 MG Ceftriaxone Sodium (Rocephin) 1 gm 1X ONCE 04/17/21 23:00 04/17/21 23:01 DC 04/17/21 23:43 1 GM Dexamethasone Sodium Phosphate (Decadron) 6 mg DAILY 04/18/21 16:00 04/20/21 08:23 6 MG Doxazosin Mesylate (Cardura) 4 mg DAILY 04/18/21 09:00 04/20/21 08:20 4 MG Fish Oil (Fish Oil) 1,000 mg DAILY 04/18/21 10:00 04/20/21 08:20 1,000 MG Heparin Sodium (Porcine) (Heparin Sodium) 5,000 unit Q12HR 04/18/21 10:00 04/20/21 08:21 5,000 UNIT Hydralazine HCl (Apresoline Inj) 10 mg PRN Q4HRS PRN 04/19/21 09:15 04/19/21 18:04 10 MG Hydralazine HCl (Apresoline) 100 mg TID 04/18/21 10:00 04/20/21 08:24 100 MG Info (PHARMACY MONITORING -- do not chart) 1 each PRN DAILY PRN 04/19/21 13:30 UNV Insulin Glargine (Lantus Syringe) 16 unit DAILY 04/19/21 09:00 04/19/21 08:50 16 UNIT Insulin Human Lispro (HumaLOG) 6 units TIDAC 04/19/21 11:30 04/20/21 08:23 6 UNITS Isosorbide Mononitrate (Imdur) 60 mg DAILY 04/18/21 09:00 04/20/21 08:19 60 MG Lactobacillus Rhamnosus (Culturelle) 1 cap BID 04/18/21 21:00 04/20/21 08:20 1 CAP Mirtazapine (Remeron) 30 mg QHS 04/18/21 21:00 04/19/21 22:43 30 MG Nitroglycerin (Nitrostat) 0.4 mg PRN Q5MIN PRN 04/17/21 22:30 04/17/21 22:32 0.4 MG Pantoprazole Sodium (Protonix) 40 mg DAILYAC 04/18/21 11:30 04/20/21 08:23 40 MG Piperacillin Sod/ Tazobactam Sod 2.25 gm/Sodium Chloride 50 ml @ 100 mls/hr Q8HRS 04/18/21 14:00 04/19/21 09:19 DC 04/19/21 05:44 100 MLS/HR Prochlorperazine Maleate (Compazine) 5 mg PRN Q6HRS PRN 04/18/21 13:45 04/19/21 22:42 5 MG Promethazine HCl (Phenergan) 25 mg PRN Q6HRS PRN 04/19/21 10:00 04/26/21 09:59 04/20/21 08:37 25 MG Remdesivir 100 mg/ Sodium Chloride 230 ml @ 460 mls/hr Q24H 04/19/21 15:00 04/22/21 15:29 04/19/21 17:41 460 MLS/HR Remdesivir 200 mg/ Sodium Chloride 210 ml @ 210 mls/hr 1X ONCE 04/18/21 15:00 04/18/21 15:59 DC 04/18/21 15:38 210 MLS/HR Sevelamer Carbonate (Renvela) 800 mg TIDWMEALS 04/18/21 12:00 04/20/21 08:21 800 MG Sodium Chloride 1,000 ml @ 400 mls/hr Q2H30M PRN 04/19/21 13:30 04/20/21 01:29 DC Tizanidine HCl (Zanaflex) 4 mg QHS 04/18/21 21:00 04/19/21 22:43 4 MG Trazodone HCl (Desyrel) 100 mg QHS 04/18/21 21:00 04/19/21 22:43 100 MG Lab Laboratory Tests Test 04/19/21 10:50 04/19/21 11:25 04/19/21 16:48 04/19/21 19:02 White Blood Count 9.4 x10^3/uL (4.0-11.0) Red Blood Count 4.01 x10^6/uL (4.30-5.70) Hemoglobin 11.3 g/dL (13.0-17.5) Hematocrit 34.7 % (39.0-53.0) Mean Corpuscular Volume 87 fL (79-100) Mean Corpuscular Hemoglobin 28 pg (25-35) Mean Corpuscular Hemoglobin Concent 33 g/dL (31-37) Red Cell Distribution Width 16.5 % (11.5-14.5) Platelet Count 268 x10^3/uL (140-400) Neutrophils (%) (Auto) 89 % (31-73) Lymphocytes (%) (Auto) 6 % (24-48) Monocytes (%) (Auto) 4 % (0-9) Eosinophils (%) (Auto) 0 % (0-3) Basophils (%) (Auto) 0 % (0-3) Neutrophils # (Auto) 8.4 x10^3/uL (1.8-7.7) Lymphocytes # (Auto) 0.6 x10^3/uL (1.0-4.8) Monocytes # (Auto) 0.4 x10^3/uL (0.0-1.1) Eosinophils # (Auto) 0.0 x10^3/uL (0.0-0.7) Basophils # (Auto) 0.0 x10^3/uL (0.0-0.2) Sodium Level 125 mmol/L (136-145) Potassium Level 4.4 mmol/L (3.5-5.1) Chloride Level 90 mmol/L (98-107) Carbon Dioxide Level 26 mmol/L (21-32) Anion Gap 9 (6-14) Blood Urea Nitrogen 31 mg/dL (8-26) Creatinine 6.5 mg/dL (0.7-1.3) Estimated GFR (Cockcroft-Gault) 10.9 BUN/Creatinine Ratio 5 (6-20) Glucose Level 301 mg/dL (70-99) Calcium Level 8.4 mg/dL (8.5-10.1) Phosphorus Level 4.3 mg/dL (2.6-4.7) Magnesium Level 2.0 mg/dL (1.8-2.4) Total Bilirubin 0.2 mg/dL (0.2-1.0) Aspartate Amino Transf (AST/SGOT) 5 U/L (15-37) Alanine Aminotransferase (ALT/SGPT) < 6 U/L (16-63) Alkaline Phosphatase 116 U/L (46-116) Total Protein 6.2 g/dL (6.4-8.2) Albumin 2.2 g/dL (3.4-5.0) Albumin/Globulin Ratio 0.6 (1.0-1.7) Glucose (Fingerstick) 288 mg/dL (70-99) 173 mg/dL (70-99) 189 mg/dL (70-99) Test 04/20/21 07:28 04/20/21 07:45 Glucose (Fingerstick) 256 mg/dL (70-99) White Blood Count 12.0 x10^3/uL (4.0-11.0) Red Blood Count 3.89 x10^6/uL (4.30-5.70) Hemoglobin 11.0 g/dL (13.0-17.5) Hematocrit 33.4 % (39.0-53.0) Mean Corpuscular Volume 86 fL (79-100) Mean Corpuscular Hemoglobin 28 pg (25-35) Mean Corpuscular Hemoglobin Concent 33 g/dL (31-37) Red Cell Distribution Width 16.4 % (11.5-14.5) Platelet Count 289 x10^3/uL (140-400) Neutrophils (%) (Auto) 79 % (31-73) Lymphocytes (%) (Auto) 14 % (24-48) Monocytes (%) (Auto) 7 % (0-9) Eosinophils (%) (Auto) 0 % (0-3) Basophils (%) (Auto) 0 % (0-3) Neutrophils # (Auto) 9.5 x10^3/uL (1.8-7.7) Lymphocytes # (Auto) 1.6 x10^3/uL (1.0-4.8) Monocytes # (Auto) 0.8 x10^3/uL (0.0-1.1) Eosinophils # (Auto) 0.0 x10^3/uL (0.0-0.7) Basophils # (Auto) 0.0 x10^3/uL (0.0-0.2) Sodium Level 128 mmol/L (136-145) Potassium Level 3.8 mmol/L (3.5-5.1) Chloride Level 92 mmol/L (98-107) Carbon Dioxide Level 29 mmol/L (21-32) Anion Gap 7 (6-14) Blood Urea Nitrogen 26 mg/dL (8-26) Creatinine 4.2 mg/dL (0.7-1.3) Estimated GFR (Cockcroft-Gault) 18.0 BUN/Creatinine Ratio 6 (6-20) Glucose Level 232 mg/dL (70-99) Calcium Level 8.3 mg/dL (8.5-10.1) Total Bilirubin 0.2 mg/dL (0.2-1.0) Aspartate Amino Transf (AST/SGOT) 12 U/L (15-37) Alanine Aminotransferase (ALT/SGPT) < 6 U/L (16-63) Alkaline Phosphatase 121 U/L (46-116) Total Protein 6.0 g/dL (6.4-8.2) Albumin 2.2 g/dL (3.4-5.0) Albumin/Globulin Ratio 0.6 (1.0-1.7) Results All relevant outside records, renal labs, imaging studies, telemetry/EKG's were reviewed. Justicifation of Admission Dx: Justifications for Admission: Justification of Admission Dx: N/A CARLO CHAUHAN MD Apr 20, 2021 09:18
--- NOTE | 2021-04-20 09:18 | PDOC ---
DATE OF SERVICE DATE: 04/20/21 TIME: 09:18 SUBJECTIVE ROS Still c/o Hiccups GI managing OBJECTIVE Vital Signs Vital Signs Date Time Temp Pulse Resp B/P (MAP) Pulse Ox O2 Delivery O2 Flow Rate FiO2 04/20/21 08:24 68 188/79 04/20/21 07:00 98.2 18 96 Nasal Cannula 3.0 98.2 I & 0 Intake and Output 04/20/21 07:00 Intake Total 720 ml Output Total 300 ml Balance 420 ml Intake Oral 720 ml Output Urine Total 300 ml PHYSICAL EXAM Physical Exam GENERAL: NAD HEENT: Normocephalic, atraumatic. Anicteric. NECK: Supple LUNGS: Clear bilaterally. Non labored HEART: S1, S2. ABDOMEN: Soft, nontender, nondistended, no rebound or guarding. EXTREMITIES: No edema, no cyanosis. DERMATOLOGIC: Warm, dry, no generalized rash. NEUROLOGIC: Alert and oriented x 3, grossly no focal deficit Generalized weakness. PSYCHIATRIC: Calm and cooperative. No ruth, No CVA or SP tenderness DIAGNOSIS/ASSESSMENT Assessment & Plan ESRD on HD MWF, on HD since 2019 ;Dialyzed and Sat. Currently No indication today Undergoing Renal Tx eval at [facility] HypoNatremia- Low , stable, Monitor HyperKalemia- resolved Acute on chronic hypoxic respiratory failure on 3 lts o2 by NC .CoVid Positive Management per Pulm/ID Hiccups- per GI COVID 19 Pneumonia Accelerated hypertension Antihypertensives, HD today with UF . Renal Doppler in Aug 2019, No e/o JOSELYN Diabetes mellitus type 2. History of prostate cancer.s/p Radiation treatment Anemia - stable , No indication for LUCHO HX of CAD and CT COMMENT/RELEVANT DATA Meds Current Medications Medications (Trade) Dose Ordered Sig/Ravinder Start Time Stop Time Status Last Admin Dose Admin Acetaminophen (Tylenol) 650 mg PRN Q6HRS PRN 04/18/21 08:45 Acetaminophen/ Hydrocodone Bitart (Lortab 7.5/325) 1 tab PRN Q6HRS PRN 04/18/21 08:45 04/19/21 19:36 1 TAB Albumin Human 100 ml @ 100 mls/hr 1X PRN PRN 04/19/21 13:30 04/19/21 19:29 DC Albuterol Sulfate (Ventolin Neb Soln) 2.5 mg PRN Q4HRS PRN 04/18/21 10:30 Albuterol/ Ipratropium (Duoneb) 3 ml RTQID 04/18/21 12:00 04/18/21 12:01 DC Amlodipine Besylate (Norvasc) 10 mg DAILY 04/18/21 09:00 04/20/21 08:20 10 MG Amylase/Lipase/ Protease (Zenpep 10,000) 1 cap [id number] 04/18/21 09:00 04/20/21 08:20 1 CAP Aspirin (Aspirin Chewable) 162 mg 1X ONCE 04/17/21 23:00 04/17/21 23:01 DC 04/17/21 22:32 162 MG Aspirin (Ecotrin) 81 mg DAILY 04/18/21 09:00 04/20/21 08:21 81 MG Atorvastatin Calcium (Lipitor) 80 mg QHS 04/18/21 21:00 04/19/21 22:42 80 MG Azithromycin (Zithromax) 250 mg DAILY 04/18/21 12:00 04/19/21 09:20 DC 04/19/21 08:43 250 MG Calcitriol (Rocaltrol) 0.25 mcg DAILY 04/18/21 09:00 04/20/21 08:23 0.25 MCG Carvedilol (Coreg) 25 mg BIDWMEALS 04/18/21 09:00 04/20/21 08:20 25 MG Ceftriaxone Sodium (Rocephin) 1 gm 1X ONCE 04/17/21 23:00 04/17/21 23:01 DC 04/17/21 23:43 1 GM Dexamethasone Sodium Phosphate (Decadron) 6 mg DAILY 04/18/21 16:00 04/20/21 08:23 6 MG Doxazosin Mesylate (Cardura) 4 mg DAILY 04/18/21 09:00 04/20/21 08:20 4 MG Fish Oil (Fish Oil) 1,000 mg DAILY 04/18/21 10:00 04/20/21 08:20 1,000 MG Heparin Sodium (Porcine) (Heparin Sodium) 5,000 unit Q12HR 04/18/21 10:00 04/20/21 08:21 5,000 UNIT Hydralazine HCl (Apresoline Inj) 10 mg PRN Q4HRS PRN 04/19/21 09:15 04/19/21 18:04 10 MG Hydralazine HCl (Apresoline) 100 mg TID 04/18/21 10:00 04/20/21 08:24 100 MG Info (PHARMACY MONITORING -- do not chart) 1 each PRN DAILY PRN 04/19/21 13:30 UNV Insulin Glargine (Lantus Syringe) 16 unit DAILY 04/19/21 09:00 04/19/21 08:50 16 UNIT Insulin Human Lispro (HumaLOG) 6 units TIDAC 04/19/21 11:30 04/20/21 08:23 6 UNITS Isosorbide Mononitrate (Imdur) 60 mg DAILY 04/18/21 09:00 04/20/21 08:19 60 MG Lactobacillus Rhamnosus (Culturelle) 1 cap BID 04/18/21 21:00 04/20/21 08:20 1 CAP Mirtazapine (Remeron) 30 mg QHS 04/18/21 21:00 04/19/21 22:43 30 MG Nitroglycerin (Nitrostat) 0.4 mg PRN Q5MIN PRN 04/17/21 22:30 04/17/21 22:32 0.4 MG Pantoprazole Sodium (Protonix) 40 mg DAILYAC 04/18/21 11:30 04/20/21 08:23 40 MG Piperacillin Sod/ Tazobactam Sod 2.25 gm/Sodium Chloride 50 ml @ 100 mls/hr Q8HRS 04/18/21 14:00 04/19/21 09:19 DC 04/19/21 05:44 100 MLS/HR Prochlorperazine Maleate (Compazine) 5 mg PRN Q6HRS PRN 04/18/21 13:45 04/19/21 22:42 5 MG Promethazine HCl (Phenergan) 25 mg PRN Q6HRS PRN 04/19/21 10:00 04/26/21 09:59 04/20/21 08:37 25 MG Remdesivir 100 mg/ Sodium Chloride 230 ml @ 460 mls/hr Q24H 04/19/21 15:00 04/22/21 15:29 04/19/21 17:41 460 MLS/HR Remdesivir 200 mg/ Sodium Chloride 210 ml @ 210 mls/hr 1X ONCE 04/18/21 15:00 04/18/21 15:59 DC 04/18/21 15:38 210 MLS/HR Sevelamer Carbonate (Renvela) 800 mg TIDWMEALS 04/18/21 12:00 04/20/21 08:21 800 MG Sodium Chloride 1,000 ml @ 400 mls/hr Q2H30M PRN 04/19/21 13:30 04/20/21 01:29 DC Tizanidine HCl (Zanaflex) 4 mg QHS 04/18/21 21:00 04/19/21 22:43 4 MG Trazodone HCl (Desyrel) 100 mg QHS 04/18/21 21:00 04/19/21 22:43 100 MG Lab Laboratory Tests Test 04/19/21 10:50 04/19/21 11:25 04/19/21 16:48 04/19/21 19:02 White Blood Count 9.4 x10^3/uL (4.0-11.0) Red Blood Count 4.01 x10^6/uL (4.30-5.70) Hemoglobin 11.3 g/dL (13.0-17.5) Hematocrit 34.7 % (39.0-53.0) Mean Corpuscular Volume 87 fL (79-100) Mean Corpuscular Hemoglobin 28 pg (25-35) Mean Corpuscular Hemoglobin Concent 33 g/dL (31-37) Red Cell Distribution Width 16.5 % (11.5-14.5) Platelet Count 268 x10^3/uL (140-400) Neutrophils (%) (Auto) 89 % (31-73) Lymphocytes (%) (Auto) 6 % (24-48) Monocytes (%) (Auto) 4 % (0-9) Eosinophils (%) (Auto) 0 % (0-3) Basophils (%) (Auto) 0 % (0-3) Neutrophils # (Auto) 8.4 x10^3/uL (1.8-7.7) Lymphocytes # (Auto) 0.6 x10^3/uL (1.0-4.8) Monocytes # (Auto) 0.4 x10^3/uL (0.0-1.1) Eosinophils # (Auto) 0.0 x10^3/uL (0.0-0.7) Basophils # (Auto) 0.0 x10^3/uL (0.0-0.2) Sodium Level 125 mmol/L (136-145) Potassium Level 4.4 mmol/L (3.5-5.1) Chloride Level 90 mmol/L (98-107) Carbon Dioxide Level 26 mmol/L (21-32) Anion Gap 9 (6-14) Blood Urea Nitrogen 31 mg/dL (8-26) Creatinine 6.5 mg/dL (0.7-1.3) Estimated GFR (Cockcroft-Gault) 10.9 BUN/Creatinine Ratio 5 (6-20) Glucose Level 301 mg/dL (70-99) Calcium Level 8.4 mg/dL (8.5-10.1) Phosphorus Level 4.3 mg/dL (2.6-4.7) Magnesium Level 2.0 mg/dL (1.8-2.4) Total Bilirubin 0.2 mg/dL (0.2-1.0) Aspartate Amino Transf (AST/SGOT) 5 U/L (15-37) Alanine Aminotransferase (ALT/SGPT) < 6 U/L (16-63) Alkaline Phosphatase 116 U/L (46-116) Total Protein 6.2 g/dL (6.4-8.2) Albumin 2.2 g/dL (3.4-5.0) Albumin/Globulin Ratio 0.6 (1.0-1.7) Glucose (Fingerstick) 288 mg/dL (70-99) 173 mg/dL (70-99) 189 mg/dL (70-99) Test 04/20/21 07:28 04/20/21 07:45 Glucose (Fingerstick) 256 mg/dL (70-99) White Blood Count 12.0 x10^3/uL (4.0-11.0) Red Blood Count 3.89 x10^6/uL (4.30-5.70) Hemoglobin 11.0 g/dL (13.0-17.5) Hematocrit 33.4 % (39.0-53.0) Mean Corpuscular Volume 86 fL (79-100) Mean Corpuscular Hemoglobin 28 pg (25-35) Mean Corpuscular Hemoglobin Concent 33 g/dL (31-37) Red Cell Distribution Width 16.4 % (11.5-14.5) Platelet Count 289 x10^3/uL (140-400) Neutrophils (%) (Auto) 79 % (31-73) Lymphocytes (%) (Auto) 14 % (24-48) Monocytes (%) (Auto) 7 % (0-9) Eosinophils (%) (Auto) 0 % (0-3) Basophils (%) (Auto) 0 % (0-3) Neutrophils # (Auto) 9.5 x10^3/uL (1.8-7.7) Lymphocytes # (Auto) 1.6 x10^3/uL (1.0-4.8) Monocytes # (Auto) 0.8 x10^3/uL (0.0-1.1) Eosinophils # (Auto) 0.0 x10^3/uL (0.0-0.7) Basophils # (Auto) 0.0 x10^3/uL (0.0-0.2) Sodium Level 128 mmol/L (136-145) Potassium Level 3.8 mmol/L (3.5-5.1) Chloride Level 92 mmol/L (98-107) Carbon Dioxide Level 29 mmol/L (21-32) Anion Gap 7 (6-14) Blood Urea Nitrogen 26 mg/dL (8-26) Creatinine 4.2 mg/dL (0.7-1.3) Estimated GFR (Cockcroft-Gault) 18.0 BUN/Creatinine Ratio 6 (6-20) Glucose Level 232 mg/dL (70-99) Calcium Level 8.3 mg/dL (8.5-10.1) Total Bilirubin 0.2 mg/dL (0.2-1.0) Aspartate Amino Transf (AST/SGOT) 12 U/L (15-37) Alanine Aminotransferase (ALT/SGPT) < 6 U/L (16-63) Alkaline Phosphatase 121 U/L (46-116) Total Protein 6.0 g/dL (6.4-8.2) Albumin 2.2 g/dL (3.4-5.0) Albumin/Globulin Ratio 0.6 (1.0-1.7) Results All relevant outside records, renal labs, imaging studies, telemetry/EKG's were reviewed. Justicifation of Admission Dx: Justifications for Admission: Justification of Admission Dx: N/A CARLO CHAUHAN MD Apr 20, 2021 09:18
[2021-04-20] MEDS: INSULIN GLARGINE SYRINGE. SQ SCH (09:45)
--- NOTE | 2021-04-20 10:11 | PDOC ---
IM PROGRESS NOTES- Subjective Subjective Vomited once yesterday. continues to have a lot of hiccups. Objective Vitals/I&O Vital Signs Date Time Temp Pulse Resp B/P (MAP) Pulse Ox O2 Delivery O2 Flow Rate FiO2 04/20/21 08:24 68 188/79 04/20/21 07:00 98.2 18 96 Nasal Cannula 3.0 98.2 I & O 04/19/21 04/19/21 04/20/21 15:00 23:00 07:00 Intake Total 480 ml 240 ml Output Total 300 ml Balance 480 ml 240 ml -300 ml Physical Exam Physical Exam General Appearance - alert and in mild distress Chest - decreased breath sounds at bases Heart - S1 and S2 normal Abdomen - soft, non tender Neurological - alert and oriented Musculoskeletal - generalized weakness Extremities - no edema Labs Laboratory Tests Test 04/19/21 10:50 04/19/21 11:25 04/19/21 16:48 04/19/21 19:02 White Blood Count 9.4 x10^3/uL (4.0-11.0) Red Blood Count 4.01 x10^6/uL (4.30-5.70) L Hemoglobin 11.3 g/dL (13.0-17.5) L Hematocrit 34.7 % (39.0-53.0) L Mean Corpuscular Volume 87 fL (79-100) Mean Corpuscular Hemoglobin 28 pg (25-35) Mean Corpuscular Hemoglobin Concent 33 g/dL (31-37) Red Cell Distribution Width 16.5 % (11.5-14.5) H Platelet Count 268 x10^3/uL (140-400) Neutrophils (%) (Auto) 89 % (31-73) H Lymphocytes (%) (Auto) 6 % (24-48) L Monocytes (%) (Auto) 4 % (0-9) Eosinophils (%) (Auto) 0 % (0-3) Basophils (%) (Auto) 0 % (0-3) Neutrophils # (Auto) 8.4 x10^3/uL (1.8-7.7) H Lymphocytes # (Auto) 0.6 x10^3/uL (1.0-4.8) L Monocytes # (Auto) 0.4 x10^3/uL (0.0-1.1) Eosinophils # (Auto) 0.0 x10^3/uL (0.0-0.7) Basophils # (Auto) 0.0 x10^3/uL (0.0-0.2) Sodium Level 125 mmol/L (136-145) L Potassium Level 4.4 mmol/L (3.5-5.1) Chloride Level 90 mmol/L (98-107) L Carbon Dioxide Level 26 mmol/L (21-32) Anion Gap 9 (6-14) Blood Urea Nitrogen 31 mg/dL (8-26) H Creatinine 6.5 mg/dL (0.7-1.3) H Estimated GFR (Cockcroft-Gault) 10.9 BUN/Creatinine Ratio 5 (6-20) L Glucose Level 301 mg/dL (70-99) H Calcium Level 8.4 mg/dL (8.5-10.1) L Phosphorus Level 4.3 mg/dL (2.6-4.7) Magnesium Level 2.0 mg/dL (1.8-2.4) Total Bilirubin 0.2 mg/dL (0.2-1.0) Aspartate Amino Transferase (AST) 5 U/L (15-37) L Alanine Aminotransferase (ALT) < 6 U/L (16-63) L Alkaline Phosphatase 116 U/L (46-116) Total Protein 6.2 g/dL (6.4-8.2) L Albumin 2.2 g/dL (3.4-5.0) L Albumin/Globulin Ratio 0.6 (1.0-1.7) L Glucose (Fingerstick) 288 mg/dL (70-99) H 173 mg/dL (70-99) H 189 mg/dL (70-99) H Test 04/20/21 07:28 04/20/21 07:45 Glucose (Fingerstick) 256 mg/dL (70-99) H White Blood Count 12.0 x10^3/uL (4.0-11.0) H Red Blood Count 3.89 x10^6/uL (4.30-5.70) L Hemoglobin 11.0 g/dL (13.0-17.5) L Hematocrit 33.4 % (39.0-53.0) L Mean Corpuscular Volume 86 fL (79-100) Mean Corpuscular Hemoglobin 28 pg (25-35) Mean Corpuscular Hemoglobin Concent 33 g/dL (31-37) Red Cell Distribution Width 16.4 % (11.5-14.5) H Platelet Count 289 x10^3/uL (140-400) Neutrophils (%) (Auto) 79 % (31-73) H Lymphocytes (%) (Auto) 14 % (24-48) L Monocytes (%) (Auto) 7 % (0-9) Eosinophils (%) (Auto) 0 % (0-3) Basophils (%) (Auto) 0 % (0-3) Neutrophils # (Auto) 9.5 x10^3/uL (1.8-7.7) H Lymphocytes # (Auto) 1.6 x10^3/uL (1.0-4.8) Monocytes # (Auto) 0.8 x10^3/uL (0.0-1.1) Eosinophils # (Auto) 0.0 x10^3/uL (0.0-0.7) Basophils # (Auto) 0.0 x10^3/uL (0.0-0.2) Sodium Level 128 mmol/L (136-145) L Potassium Level 3.8 mmol/L (3.5-5.1) Chloride Level 92 mmol/L (98-107) L Carbon Dioxide Level 29 mmol/L (21-32) Anion Gap 7 (6-14) Blood Urea Nitrogen 26 mg/dL (8-26) Creatinine 4.2 mg/dL (0.7-1.3) H Estimated GFR (Cockcroft-Gault) 18.0 BUN/Creatinine Ratio 6 (6-20) Glucose Level 232 mg/dL (70-99) H Calcium Level 8.3 mg/dL (8.5-10.1) L Total Bilirubin 0.2 mg/dL (0.2-1.0) Aspartate Amino Transferase (AST) 12 U/L (15-37) L Alanine Aminotransferase (ALT) < 6 U/L (16-63) L Alkaline Phosphatase 121 U/L (46-116) H Total Protein 6.0 g/dL (6.4-8.2) L Albumin 2.2 g/dL (3.4-5.0) L Albumin/Globulin Ratio 0.6 (1.0-1.7) L Laboratory Tests 04/19/21 10:50 04/20/21 07:45 Laboratory Tests 04/19/21 10:50 04/20/21 07:45 Meds Current Medications Medications (Trade) Dose Ordered Sig/Ravinder Route PRN Reason Start Time Stop Time Status Last Admin Dose Admin Remdesivir 100 mg/ Sodium Chloride 230 ml @ 460 mls/hr Q24H IV 04/19/21 15:00 04/22/21 15:29 04/19/21 17:41 Insulin Human Lispro (HumaLOG) 0-8 UNITS TIDBFRMEAL SQ 04/19/21 11:30 04/20/21 08:22 Insulin Human Lispro (HumaLOG) 6 units TIDAC SQ 04/19/21 11:30 04/20/21 08:23 Assessment Assessment 1. Pneumonia, right sided. COVID-19 pneumonia. 2. Exacerbation of chronic obstructive pulmonary disease. 3. Acute on chronic hypoxic respiratory failure. 4. End-stage renal disease, on hemodialysis Saturday, Saturday, Saturday. 5. Hiccups. 6. Gastroesophageal reflux disease. 7. Accelerated hypertension. 8. 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 9. Hyperlipidemia. 10. Coronary artery disease with history of stent placement. 11. Chronic pancreatitis. 12. Anemia. 13. History of myocardial infarction. 14. Surgery for removal of salivary gland. 15. History of prostate cancer, treated with radiation therapy. 16. Physical deconditioning. 17. Osteoarthritis. 18. Chronic back pain. PLAN: 1. Pneumonia. COVID-19 PCR test is positive. Has COVID-[address] Gray. Start IV Rocephin and Zithromax that were given yesterday. I will consult Dr. Gretel Aguilar for Infectious Disease evaluation because of his multiple medical problems. Started on IV remdesivir and IV dexamethasone. Discussed with Dr. Gray. 2. Exacerbation of COPD. 3. Acute on chronic hypoxic respiratory failure. Continue oxygen by nasal cannula. 4. End-stage renal disease, on hemodialysis. Consult Dr. Riddle for Nephrology evaluation and management. He will get hemodialysis today. 5. Persistent hiccups. Continue home medications as the patient also has gastroesophageal reflux disease. Pantoprazole. Consult Dr. Santo for GI evaluation and management. Increase promethazine. 6. COVID-19 rapid antigen test was negative in the ER. However COVID-19 PCR test is positive. 7. Diabetes mellitus not controlled due to infection as well as IV steroids. Restart Lantus and increase scheduled insulin and sliding scale insulin. 8. Accelerated hypertension. Continue present treatment. Add IV hydralazine 10 mg as needed every 4 hours. 9. Hyponatremia. Sodium has increased to 128. For details, please refer to the orders. Prognosis of this patient is poor due to his multiple medical problems. Plan Plan For more details regarding further plans, please refer to the orders. Justifications for Admission Other Justification TRINA ALDANA MD Apr 20, 2021 10:11
--- NOTE | 2021-04-20 11:04 | NUR ---
SW following. Discussed with RN, pt still on 3L (uses 2L at home). COVID-19 positive. RN advised no SW needs at this time. SW will continue to follow.
--- NOTE | 2021-04-20 11:23 | PDOC ---
Infectious Disease Note Subjective: Subjective Patient continues to have hiccups today Has GI upset Remains on O2 by nasal cannula No fevers or vomiting Vital Signs: Vital Signs Vital Signs Date Time Temp Pulse Resp B/P (MAP) Pulse Ox O2 Delivery O2 Flow Rate FiO2 04/20/21 08:24 68 188/79 04/20/21 07:50 Nasal Cannula 3.0 04/20/21 07:00 98.2 18 96 98.2 Physical Exam: PHYSICAL EXAM GENERAL: Alert, oriented x 3 male, lying in bed comfortably, in no acute distress, HEENT: Normocephalic, atraumatic. Anicteric. NECK: Supple, no JVD. LUNGS: Clear bilaterally. No wheezing. HEART: S1, S2. ABDOMEN: Soft, nontender, nondistended, no rebound or guarding. EXTREMITIES: No edema, no cyanosis. DERMATOLOGIC: Warm, dry, no generalized rash. NEUROLOGIC: Alert and oriented x 3, grossly nonfocal. Generalized weakness. PSYCHIATRIC: Calm and cooperative. Medications: Inpatient Meds: Medications reviewed. Labs: Lab Laboratory Tests Test 04/19/21 11:25 04/19/21 16:48 04/19/21 19:02 04/20/21 07:28 Glucose (Fingerstick) 288 mg/dL (70-99) 173 mg/dL (70-99) 189 mg/dL (70-99) 256 mg/dL (70-99) Test 04/20/21 07:45 White Blood Count 12.0 x10^3/uL (4.0-11.0) Red Blood Count 3.89 x10^6/uL (4.30-5.70) Hemoglobin 11.0 g/dL (13.0-17.5) Hematocrit 33.4 % (39.0-53.0) Mean Corpuscular Volume 86 fL (79-100) Mean Corpuscular Hemoglobin 28 pg (25-35) Mean Corpuscular Hemoglobin Concent 33 g/dL (31-37) Red Cell Distribution Width 16.4 % (11.5-14.5) Platelet Count 289 x10^3/uL (140-400) Neutrophils (%) (Auto) 79 % (31-73) Lymphocytes (%) (Auto) 14 % (24-48) Monocytes (%) (Auto) 7 % (0-9) Eosinophils (%) (Auto) 0 % (0-3) Basophils (%) (Auto) 0 % (0-3) Neutrophils # (Auto) 9.5 x10^3/uL (1.8-7.7) Lymphocytes # (Auto) 1.6 x10^3/uL (1.0-4.8) Monocytes # (Auto) 0.8 x10^3/uL (0.0-1.1) Eosinophils # (Auto) 0.0 x10^3/uL (0.0-0.7) Basophils # (Auto) 0.0 x10^3/uL (0.0-0.2) Sodium Level 128 mmol/L (136-145) Potassium Level 3.8 mmol/L (3.5-5.1) Chloride Level 92 mmol/L (98-107) Carbon Dioxide Level 29 mmol/L (21-32) Anion Gap 7 (6-14) Blood Urea Nitrogen 26 mg/dL (8-26) Creatinine 4.2 mg/dL (0.7-1.3) Estimated GFR (Cockcroft-Gault) 18.0 BUN/Creatinine Ratio 6 (6-20) Glucose Level 232 mg/dL (70-99) Calcium Level 8.3 mg/dL (8.5-10.1) Total Bilirubin 0.2 mg/dL (0.2-1.0) Aspartate Amino Transf (AST/SGOT) 12 U/L (15-37) Alanine Aminotransferase (ALT/SGPT) < 6 U/L (16-63) Alkaline Phosphatase 121 U/L (46-116) Total Protein 6.0 g/dL (6.4-8.2) Albumin 2.2 g/dL (3.4-5.0) Albumin/Globulin Ratio 0.6 (1.0-1.7) Objective: Assessment: COVID-19 infection 1. Acute on chronic hypoxic respiratory failure. 2. Leukocytosis. Could have reactive component 3. Pulmonary infiltrates more on the right side. SARS COVID rapid negative. 4. End-stage renal disease, on hemodialysis. 5. History of nausea, vomiting and diarrhea, improving, could be gastroenteritis. 6. Accelerated hypertension. 7. Diabetes mellitus type 2. 8. History of prostate cancer. 9. Hyponatremia 10. Nausea vomiting diarrhea prior to admission could be viral Plan: Plan of Care Continue supportive care On steroids and Remdesivir Monitor off antibiotics Monitor labs and cultures Discussed with nursing staff SACHI BANUELOS MD Apr 20, 2021 11:23
--- NOTE | 2021-04-20 12:09 | RAD ---
EXAMINATION: CT Chest Without IV contrast. INDICATION:55 years, Male, congestive heart failure versus pneumonia. COMPARISON: Chest radiograph dated 04/17/2021. PET/CT dated 11/26/2013. TECHNIQUE: Spiral CT was obtained from the jugular notch through the posterior costophrenic recess. S agittal and coronal reformats were obtained. Exposure: One or more of the following individualized dose reduction techniques were utilized for thi s examination: 1. Automated exposure control 2. Adjustment of the mA and/or kV according to patient size 3. Use of iterative reconstruction technique. FINDINGS: LUNGS/PLEURA: Central airways are patent. Multifocal bilateral patchy areas of groundglass opacities. Subsegmental atelectasis in bibasilar lungs. No pleural effusion or pneumothorax. There is a 7 mm so lid pulmonary nodule in the right upper lobe (series 3 image 26), essentially unchanged in size since November 2013, most likely benign. MEDIASTINUM: Multiple prominent mediastinal lymph nodes, likely reactive.. Evaluation of jd is limi mayte due to lack of IV contrast. The thoracic aorta and pulmonary arteries are normal in caliber. The heart is normal in size. No pericardial effusion. Severe coronary artery atherosclerotic calcificatio ns. The visualized thyroid and the esophagus are unremarkable. AXILLA/SOFT TISNo supraclavicular or axillary adenopathy.aRegional soft tissues are within normal aleman its.mits. UPPER ABDO : Sequelae of chronic pancreatitis with multiple parenchymal calcifications. Cholecystecto my. Sarah evidence of acute fractures or aggressive osseous lesions.ions. IMPRESSION . Multifocal bilateral patchy groundglass opacities, suspicious for multifocal pneumonia. 2. Sequelae of chronic pancreatitis. Electronically signed by: Jean Turcios MD (04/20/2021 12:06 PM) [id number]
--- NOTE | 2021-04-20 12:11 | PDOC ---
Date of Service: DATE: 04/20/21 TIME: 12:04 Subjective: Subjective: Frustrated w/ ongoing hiccups. Not bothersome at night - "I don't know what they give me" - says didn't have hiccups again til 8:00 a.m. today. Vomited yesterday - not sure actually vomited/retched but probably more related to hiccupping while trying to eat. [place] hard to swallow sometimes. No swallowing complaints or vomiting today. No abd pain. Objective: Objective: D/w nurse - upset/grumpy yesterday, bit better today, tolerating diet. Primary increased Phenergan dose. Got Remeron, Trazadone, Zanaflex, and Compazine at 22:43 last night. Vital Signs: Vital Signs Date Time Temp Pulse Resp B/P (MAP) Pulse Ox O2 Delivery O2 Flow Rate FiO2 04/20/21 11:00 98.0 69 18 171/72 (105) 98 Nasal Cannula 3.0 98.0 Labs: Laboratory Tests Test 04/19/21 16:48 04/19/21 19:02 04/20/21 07:28 04/20/21 07:45 Glucose (Fingerstick) 173 mg/dL 189 mg/dL 256 mg/dL White Blood Count 12.0 x10^3/uL Red Blood Count 3.89 x10^6/uL Hemoglobin 11.0 g/dL Hematocrit 33.4 % Mean Corpuscular Volume 86 fL Mean Corpuscular Hemoglobin 28 pg Mean Corpuscular Hemoglobin Concent 33 g/dL Red Cell Distribution Width 16.4 % Platelet Count 289 x10^3/uL Neutrophils (%) (Auto) 79 % Lymphocytes (%) (Auto) 14 % Monocytes (%) (Auto) 7 % Eosinophils (%) (Auto) 0 % Basophils (%) (Auto) 0 % Neutrophils # (Auto) 9.5 x10^3/uL Lymphocytes # (Auto) 1.6 x10^3/uL Monocytes # (Auto) 0.8 x10^3/uL Eosinophils # (Auto) 0.0 x10^3/uL Basophils # (Auto) 0.0 x10^3/uL Sodium Level 128 mmol/L Potassium Level 3.8 mmol/L Chloride Level 92 mmol/L Carbon Dioxide Level 29 mmol/L Anion Gap 7 Blood Urea Nitrogen 26 mg/dL Creatinine 4.2 mg/dL Estimated GFR (Cockcroft-Gault) 18.0 BUN/Creatinine Ratio 6 Glucose Level 232 mg/dL Calcium Level 8.3 mg/dL Total Bilirubin 0.2 mg/dL Aspartate Amino Transf (AST/SGOT) 12 U/L Alanine Aminotransferase (ALT/SGPT) < 6 U/L Alkaline Phosphatase 121 U/L Total Protein 6.0 g/dL Albumin 2.2 g/dL Albumin/Globulin Ratio 0.6 Imaging: Chest CT 04/20 pending PE: GEN: NAD - sitting on edge of bed - visual exam done/COVID isolation LUNGS: NC 3L HEART: RR per chart ABD: non-distended NEURO/PSYCH: A & O 3 A/P: COVID, hiccups GERD, chronic pancreatitis -- Difficult situation. Try Compazine again? Continue PPI. Justicifation of Admission Dx: Justifications for Admission: Justification of Admission Dx: N/A KIMMY MARAVILLA Apr 20, 2021 12:11
[2021-04-20] MEDS: hydrALAZINE 20 MG/ML VIAL. IVP PRN (12:30)
[2021-04-20] MEDS: PROCHLORPERAZINE 5 MG TABLET. PO PRN (12:30)
[2021-04-20] MEDS: REMDESIVIR 100mg in NORMAL SALINE 250ML X 4 DAYS IV SCH (15:24)
[2021-04-20] MEDS: HYDROcodone/APAP 7.5/325MG 1 TAB TABLET PO PRN ×2 (16:37→22:53)
[2021-04-20] MEDS: traZODone 100 MG TABLET. PO SCH (21:35)
[2021-04-20] MEDS: MIRTAZAPINE 15 MG TABLET PO SCH (21:35)
[2021-04-20] MEDS: ATORVASTATIN CALCIUM 40 MG TABLET. PO SCH (21:36)
[2021-04-20] MEDS: tiZANidine 4 MG TABLET. PO SCH (21:36)
[2021-04-21 03:00] VITALS: BP 217/91
[2021-04-21 07:00] VITALS: BP 183/118
[2021-04-21 08:21] LABS: CALCIUM 8.3 mg/dL (8.5-10.1); CREATININE 5.6 mg/dL (0.7-1.3); GFR 12.9
--- NOTE | 2021-04-21 08:21 | PDOC ---
Infectious Disease Note Subjective: Subjective Patient continues to have hiccups Has GI upset Some nausea and vomiting Remains on O2 by nasal cannula No fevers Vital Signs: Vital Signs Vital Signs Date Time Temp Pulse Resp B/P (MAP) Pulse Ox O2 Delivery O2 Flow Rate FiO2 04/21/21 03:00 97.0 62 20 217/91 (133) 96 Nasal Cannula 3.0 97.0 Physical Exam: PHYSICAL EXAM GENERAL: Alert, oriented x 3 male, lying in bed comfortably, in no acute distress, HEENT: Normocephalic, atraumatic. Anicteric. NECK: Supple, no JVD. LUNGS: Clear bilaterally. No wheezing. HEART: S1, S2. ABDOMEN: Soft, nontender, nondistended, no rebound or guarding. EXTREMITIES: No edema, no cyanosis. DERMATOLOGIC: Warm, dry, no generalized rash. NEUROLOGIC: Alert and oriented x 3, grossly nonfocal. Generalized weakness. PSYCHIATRIC: Calm and cooperative. Medications: Inpatient Meds: Medications reviewed. Labs: Lab Laboratory Tests Test 04/20/21 12:01 04/20/21 16:59 04/20/21 21:08 04/21/21 07:12 Glucose (Fingerstick) 178 mg/dL (70-99) 327 mg/dL (70-99) 190 mg/dL (70-99) 244 mg/dL (70-99) Objective: Assessment: COVID-19 infection 1. Acute on chronic hypoxic respiratory failure. 2. Leukocytosis. Could have reactive component 3. Pulmonary infiltrates more on the right side. SARS COVID rapid negative. 4. End-stage renal disease, on hemodialysis. 5. History of nausea, vomiting and diarrhea, improving, could be gastroenteritis. 6. Accelerated hypertension. 7. Diabetes mellitus type 2. 8. History of prostate cancer. 9. Hyponatremia 10. Nausea vomiting diarrhea prior to admission could be viral Plan: Plan of Care Continue supportive care On steroids and Remdesivir Monitor off antibiotics Monitor labs and cultures Discussed with nursing staff SACHI BANUELOS MD Apr 21, 2021 08:21
[2021-04-21] MEDS ORDERED: INSULIN GLARGINE SYRINGE. SQ SCH (09:00)
--- NOTE | 2021-04-21 09:01 | PDOC ---
IM PROGRESS NOTES- Subjective Subjective Worried about diarrhea. Not able to sleep Objective Vitals/I&O Vital Signs Date Time Temp Pulse Resp B/P (MAP) Pulse Ox O2 Delivery O2 Flow Rate FiO2 04/21/21 03:00 97.0 62 20 217/91 (133) 96 Nasal Cannula 3.0 97.0 I & O 04/20/21 04/20/21 04/21/21 15:00 23:00 07:00 Intake Total 480 ml 540 ml 600 ml Balance 480 ml 540 ml 600 ml Physical Exam Physical Exam General Appearance - alert and in mild distress Chest - decreased breath sounds at bases Heart - S1 and S2 normal Abdomen - soft, non tender Neurological - alert and oriented Musculoskeletal - generalized weakness Extremities - no edema Labs Laboratory Tests Test 04/20/21 12:01 04/20/21 16:59 04/20/21 21:08 04/21/21 07:12 Glucose (Fingerstick) 178 mg/dL (70-99) H 327 mg/dL (70-99) H 190 mg/dL (70-99) H 244 mg/dL (70-99) H Test 04/21/21 07:40 Sodium Level 126 mmol/L (136-145) L Potassium Level 4.0 mmol/L (3.5-5.1) Chloride Level 88 mmol/L (98-107) L Carbon Dioxide Level 28 mmol/L (21-32) Anion Gap 10 (6-14) Blood Urea Nitrogen 42 mg/dL (8-26) #H Creatinine 5.6 mg/dL (0.7-1.3) H Estimated GFR (Cockcroft-Gault) 12.9 Glucose Level 231 mg/dL (70-99) H Calcium Level 8.3 mg/dL (8.5-10.1) L Laboratory Tests 04/21/21 07:40 Meds Current Medications Medications (Trade) Dose Ordered Sig/Ravinder Route PRN Reason Start Time Stop Time Status Last Admin Dose Admin Promethazine HCl (Phenergan) 50 mg PRN Q6HRS PRN PO NAUSEA/VOMITING 04/20/21 10:45 04/20/21 21:51 Assessment Assessment 1. Pneumonia, right sided. COVID-19 pneumonia. 2. Exacerbation of chronic obstructive pulmonary disease. 3. Acute on chronic hypoxic respiratory failure. 4. End-stage renal disease, on hemodialysis Saturday, Saturday, Saturday. 5. Hiccups. 6. Gastroesophageal reflux disease. 7. Accelerated hypertension. 8. 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 9. Hyperlipidemia. 10. Coronary artery disease with history of stent placement. 11. Chronic pancreatitis. 12. Anemia. 13. History of myocardial infarction. 14. Surgery for removal of salivary gland. 15. History of prostate cancer, treated with radiation therapy. 16. Physical deconditioning. 17. Osteoarthritis. 18. Chronic back pain. PLAN: 1. Pneumonia. COVID-19 PCR test is positive. Has COVID-[address] Gray. Start IV Rocephin and Zithromax that were given yesterday. I will consult Dr. Gretel Aguilar for Infectious Disease evaluation because of his multiple medical problems. Started on IV remdesivir and IV dexamethasone. Discussed with Dr. Gray. 2. Exacerbation of COPD. 3. Acute on chronic hypoxic respiratory failure. Continue oxygen by nasal cannula. 4. End-stage renal disease, on hemodialysis. Consult Dr. Riddle for Nephrology evaluation and management. He will get hemodialysis today. 5. Persistent hiccups. Continue home medications as the patient also has gastroesophageal reflux disease. Pantoprazole. Consult Dr. Santo for GI evaluation and management. Increase promethazine. 6. COVID-19 rapid antigen test was negative in the ER. However COVID-19 PCR test is positive. 7. Diabetes mellitus not controlled due to infection as well as IV steroids. Restart Lantus and increase scheduled insulin and sliding scale insulin. 8. Accelerated hypertension. BP remains elevated on multiple medications. Continue present treatment. Add IV hydralazine 10 mg as needed every 4 hours. May need Clonidine. Discussed with Dr. Garcia about different options. 9. Hyponatremia. Sodium 126. For details, please refer to the orders. Prognosis of this patient is poor due to his multiple medical problems. Plan Plan For more details regarding further plans, please refer to the orders. Justifications for Admission Other Justification TRINA ALDANA MD Apr 21, 2021 09:01
[2021-04-21] MEDS: PANTOPRAZOLE 40 MG TABLET.DR. PO SCH (09:10)
[2021-04-21] MEDS: INSULIN LISPRO 300 UNITS/3 ML VIAL. SQ SCH ×6 (09:12→16:30)
[2021-04-21] MEDS: HEPARIN for SUB-Q USE 5,000 UNIT/ML VIAL. SQ SCH ×2 (09:13→22:18)
[2021-04-21] MEDS: INSULIN GLARGINE SYRINGE. SQ SCH (09:14)
[2021-04-21] MEDS: SEVELAMER CARBONATE 800 MG TABLET. PO SCH ×3 (09:16→17:00)
[2021-04-21] MEDS: CARVEDILOL 12.5 MG TABLET. PO SCH ×2 (09:16→17:00)
[2021-04-21] MEDS: ASPIRIN ENTERIC COATED 81 MG TABLET.DR. PO SCH (09:17)
[2021-04-21] MEDS: DOXAZOSIN MESYLATE 4 MG TABLET. PO SCH (09:17)
[2021-04-21] MEDS: LACTOBACILLUS RHAMNOSUS GG 1 CAPSULE. PO SCH ×2 (09:17→22:11)
[2021-04-21] MEDS: LIPASE/PROTEAS/AMYLAS 10/32/42 CAPSULE.DR. PO SCH (09:17)
[2021-04-21] MEDS: OMEGA-3 FATTY ACIDS/FISH OIL 1,000 MG CAPSULE. PO SCH (09:17)
[2021-04-21] MEDS: ISOSORBIDE MONONITRATE ER 30 MG TAB.ER.24H PO SCH (09:19)
[2021-04-21] MEDS: DEXAMETHASONE SOD PHOS 4 MG/ML VIAL IVP SCH (09:19)
[2021-04-21] MEDS: CALCITRIOL 0.25 MCG CAPSULE. PO SCH (09:20)
[2021-04-21] MEDS ORDERED: LOPERAMIDE 2 MG CAPSULE PO PRN (09:45)
[2021-04-21 11:00] VITALS: BP 177/78
--- NOTE | 2021-04-21 11:36 | NUR ---
SW following. Discussed with RN, pt on 3L (uses 2L at home), COVID-19 positive. RN advised no SW needs at this time. SW will continue to follow.
--- NOTE | 2021-04-21 11:50 | PDOC ---
Date of Service: DATE: 04/21/21 TIME: 11:43 Objective: Objective: No hiccups per nurse. Pt asked for Imodium just in case he had diarrhea (but he hasn't had any). Vital Signs: Vital Signs Date Time Temp Pulse Resp B/P (MAP) Pulse Ox O2 Delivery O2 Flow Rate FiO2 04/21/21 09:19 65 183/118 04/21/21 08:30 Nasal Cannula 3.0 04/21/21 07:00 96.8 17 88 96.8 Labs: Laboratory Tests Test 04/20/21 12:01 04/20/21 16:59 04/20/21 21:08 04/21/21 07:12 Glucose (Fingerstick) 178 mg/dL 327 mg/dL 190 mg/dL 244 mg/dL Test 04/21/21 07:40 Sodium Level 126 mmol/L Potassium Level 4.0 mmol/L Chloride Level 88 mmol/L Carbon Dioxide Level 28 mmol/L Anion Gap 10 Blood Urea Nitrogen 42 mg/dL Creatinine 5.6 mg/dL Estimated GFR (Cockcroft-Gault) 12.9 Glucose Level 231 mg/dL Calcium Level 8.3 mg/dL BLOOD CULTURE Preliminary NO GROWTH AFTER 3 DAYS Imaging: Chest CT IMPRESSION . Multifocal bilateral patchy groundglass opacities, suspicious for multifocal pneumonia. Sequelae of chronic pancreatitis. PE: GEN: COVID isolation, exam deferred A/P: COVID Hiccups GERD, chronic pancreatitis HTN -- Better? Continue PPI, Compazine PRN. Justicifation of Admission Dx: Justifications for Admission: Justification of Admission Dx: N/A KIMMY MARAVILLA Apr 21, 2021 11:50
--- NOTE | 2021-04-21 12:02 | PDOC ---
PULMONARY PROGRESS NOTES DATE: 04/21/21 TIME: 11:59 Subjective no soa on canula c/o some hiccups Vitals Vital Signs Date Time Temp Pulse Resp B/P (MAP) Pulse Ox O2 Delivery O2 Flow Rate FiO2 04/21/21 09:19 65 183/118 04/21/21 08:30 Nasal Cannula 3.0 04/21/21 07:00 96.8 17 88 96.8 General: Alert, No acute distress Lungs: Clear Cardiovascular: S1 Abdomen: Soft Extremities: No Edema Labs Laboratory Tests Test 04/19/21 16:48 04/19/21 19:02 04/20/21 07:28 04/20/21 07:45 Glucose (Fingerstick) 173 mg/dL (70-99) 189 mg/dL (70-99) 256 mg/dL (70-99) White Blood Count 12.0 x10^3/uL (4.0-11.0) Red Blood Count 3.89 x10^6/uL (4.30-5.70) Hemoglobin 11.0 g/dL (13.0-17.5) Hematocrit 33.4 % (39.0-53.0) Mean Corpuscular Volume 86 fL (79-100) Mean Corpuscular Hemoglobin 28 pg (25-35) Mean Corpuscular Hemoglobin Concent 33 g/dL (31-37) Red Cell Distribution Width 16.4 % (11.5-14.5) Platelet Count 289 x10^3/uL (140-400) Neutrophils (%) (Auto) 79 % (31-73) Lymphocytes (%) (Auto) 14 % (24-48) Monocytes (%) (Auto) 7 % (0-9) Eosinophils (%) (Auto) 0 % (0-3) Basophils (%) (Auto) 0 % (0-3) Neutrophils # (Auto) 9.5 x10^3/uL (1.8-7.7) Lymphocytes # (Auto) 1.6 x10^3/uL (1.0-4.8) Monocytes # (Auto) 0.8 x10^3/uL (0.0-1.1) Eosinophils # (Auto) 0.0 x10^3/uL (0.0-0.7) Basophils # (Auto) 0.0 x10^3/uL (0.0-0.2) Sodium Level 128 mmol/L (136-145) Potassium Level 3.8 mmol/L (3.5-5.1) Chloride Level 92 mmol/L (98-107) Carbon Dioxide Level 29 mmol/L (21-32) Anion Gap 7 (6-14) Blood Urea Nitrogen 26 mg/dL (8-26) Creatinine 4.2 mg/dL (0.7-1.3) Estimated GFR (Cockcroft-Gault) 18.0 BUN/Creatinine Ratio 6 (6-20) Glucose Level 232 mg/dL (70-99) Calcium Level 8.3 mg/dL (8.5-10.1) Total Bilirubin 0.2 mg/dL (0.2-1.0) Aspartate Amino Transf (AST/SGOT) 12 U/L (15-37) Alanine Aminotransferase (ALT/SGPT) < 6 U/L (16-63) Alkaline Phosphatase 121 U/L (46-116) Total Protein 6.0 g/dL (6.4-8.2) Albumin 2.2 g/dL (3.4-5.0) Albumin/Globulin Ratio 0.6 (1.0-1.7) Test 04/20/21 12:01 04/20/21 16:59 04/20/21 21:08 04/21/21 07:12 Glucose (Fingerstick) 178 mg/dL (70-99) 327 mg/dL (70-99) 190 mg/dL (70-99) 244 mg/dL (70-99) Test 04/21/21 07:40 Sodium Level 126 mmol/L (136-145) Potassium Level 4.0 mmol/L (3.5-5.1) Chloride Level 88 mmol/L (98-107) Carbon Dioxide Level 28 mmol/L (21-32) Anion Gap 10 (6-14) Blood Urea Nitrogen 42 mg/dL (8-26) Creatinine 5.6 mg/dL (0.7-1.3) Estimated GFR (Cockcroft-Gault) 12.9 Glucose Level 231 mg/dL (70-99) Calcium Level 8.3 mg/dL (8.5-10.1) Laboratory Tests Test 04/20/21 12:01 04/20/21 16:59 04/20/21 21:08 04/21/21 07:12 Glucose (Fingerstick) 178 mg/dL (70-99) 327 mg/dL (70-99) 190 mg/dL (70-99) 244 mg/dL (70-99) Test 04/21/21 07:40 Sodium Level 126 mmol/L (136-145) Potassium Level 4.0 mmol/L (3.5-5.1) Chloride Level 88 mmol/L (98-107) Carbon Dioxide Level 28 mmol/L (21-32) Anion Gap 10 (6-14) Blood Urea Nitrogen 42 mg/dL (8-26) Creatinine 5.6 mg/dL (0.7-1.3) Estimated GFR (Cockcroft-Gault) 12.9 Glucose Level 231 mg/dL (70-99) Calcium Level 8.3 mg/dL (8.5-10.1) Medications Active Scripts Medications Dose Route/Sig Max Daily Dose Days Date Category Tizanidine Hcl 4 Mg Tablet 1 Tab PO QHS 04/18/21 Reported Erinn Sterling 10,000 Units Capsule (Lipase/Protease/Amylase) 1 Each Capsule.dr 1 Each PO DAILY 04/18/21 Reported Doxazosin Mesylate 4 Mg Tablet 1 Tab PO DAILY 04/18/21 Reported Admelog (Insulin Lispro) 100 Unit/1 Ml Vial 6 Units SQ TIDWMEALS 12/17/20 Rx Lantus (Insulin Glargine,Hum.rec.anlog) 100 Unit/1 Ml Vial 14 Unit SQ DAILY10 12/17/20 Rx Trazodone Hcl 100 Mg Tablet 1 Tab PO QHS 12/16/20 Reported Calcitriol 0.25 Mcg Capsule 0.25 Mcg PO DAILY 30 07/04/20 Rx Renvela (Sevelamer Carbonate) 800 Mg Tablet 800 Mg PO TIDWMEALS 30 07/04/20 Rx Hydrocodone-Acetamin 7.5-325 (Hydrocodone/Acetaminophen) 1 Each Tablet 7.5-325 Mg PO Q6HRS PRN 07/01/20 Reported Mirtazapine 30 Mg Tab.rapdis 1 Tab PO QHS 30 06/29/20 Reported Fish Oil 1,000 mg Softgel ([place]-3/Dha/Epa/Fish Oil) 1,000 Mg Capsule 1,000 Mg PO DAILY 06/29/20 Reported Carvedilol 25 Mg Tablet 25 Mg PO BIDWMEALS 06/29/20 Reported Hydralazine Hcl 100 Mg Tablet 1 Tab PO TID 06/29/20 Reported Amlodipine Besylate 10 Mg Tablet 10 Mg PO DAILY 30 09/13/19 Rx Isosorbide Mononitrate Er (Isosorbide Mononitrate) 30 Mg Tab.er.24h 60 Mg PO DAILY 30 09/13/19 Rx Aspir 81 (Aspirin) 81 Mg Tablet.dr 1 Tab PO DAILY 08/26/17 Reported Atorvastatin Calcium 80 Mg Tablet 1 Tab PO DAILY 08/26/17 Reported Impression . IMPRESSION: 1. Acute hypoxic respiratory failure, due to COVID-19 viral pneumonia/mild CHF 2. The patient with vomiting, diarrhea and cough. Could be aspiration pneumonia versus viral pneumonia pneumonia. The patient is vaccinated with COVID and COVID rapid is negative. PCR positive 3. End-stage renal disease, on hemodialysis. 4. Hyponatremia. 5. 30 years of tobaccoism, likely underlying chronic obstructive pulmonary disease. Plan . 1. Dexamethasone per protocol 2. remdesivir per protocol. 3. Continue empiric antibiotics. 4. procalcitonin level. 1.5 5. Close monitoring of blood pressure per PCP. 6. Heparin for DVT prophylaxis. 7. Smoking cessation counseling provided. 8. Follow renal recommendation. 9. Discussed with the patient and RN. FABY ROSE MD Apr 21, 2021 12:02
--- NOTE | 2021-04-21 12:40 | PDOC ---
DATE OF SERVICE DATE: 04/21/21 TIME: 12:36 SUBJECTIVE ROS Having Hiccups. No N/V/D OBJECTIVE Vital Signs Vital Signs Date Time Temp Pulse Resp B/P (MAP) Pulse Ox O2 Delivery O2 Flow Rate FiO2 04/21/21 09:19 65 183/118 04/21/21 08:30 Nasal Cannula 3.0 04/21/21 07:00 96.8 17 88 96.8 I & 0 Intake and Output 04/21/21 07:00 Intake Total 1620 ml Balance 1620 ml Intake Oral 1620 ml # Voids 3 PHYSICAL EXAM Physical Exam GENERAL: NAD HEENT: Normocephalic, atraumatic. Anicteric. NECK: Supple LUNGS: Clear bilaterally. Non labored HEART: S1, S2. ABDOMEN: Soft, nontender, nondistended, no rebound or guarding. EXTREMITIES: No edema, no cyanosis. DERMATOLOGIC: Warm, dry, no generalized rash. NEUROLOGIC: Alert and oriented x 3, grossly no focal deficit Generalized weakness. PSYCHIATRIC: Calm and cooperative. No ruth, No CVA or SP tenderness DIAGNOSIS/ASSESSMENT Assessment & Plan ESRD on HD MWF, on HD since 2019 Dialysis today , discussed treatment plan with [facility] Undergoing Renal Tx eval at HypoNatremia- Low , stable, Monitor HyperKalemia- resolved Acute on chronic hypoxic respiratory failure on 3 lts o2 by NC .CoVid Positive Management per Pulm/ID Hiccups- per GI COVID 19 Pneumonia Accelerated hypertension Antihypertensives,. Renal Doppler in Aug 2019, No e/o JOSELYN .On multiple antihypertensives Will try Clonidine patch Diabetes mellitus type 2. History of prostate cancer.s/p Radiation treatment Anemia - stable , No indication for LUCHO HX of CAD and MS COMMENT/RELEVANT DATA Meds Current Medications Medications (Trade) Dose Ordered Sig/Ravinder Start Time Stop Time Status Last Admin Dose Admin Acetaminophen (Tylenol) 650 mg PRN Q6HRS PRN 04/18/21 08:45 Acetaminophen/ Hydrocodone Bitart (Lortab 7.5/325) 1 tab PRN Q6HRS PRN 04/18/21 08:45 04/20/21 22:53 1 TAB Albumin Human 100 ml @ 100 mls/hr 1X PRN PRN 04/19/21 13:30 04/19/21 19:29 DC Albuterol Sulfate (Ventolin Neb Soln) 2.5 mg PRN Q4HRS PRN 04/18/21 10:30 Albuterol/ Ipratropium (Duoneb) 3 ml RTQID 04/18/21 12:00 04/18/21 12:01 DC Amlodipine Besylate (Norvasc) 10 mg DAILY 04/18/21 09:00 04/21/21 09:18 10 MG Amylase/Lipase/ Protease (Zenpep 10,000) 1 cap [id number] 04/18/21 09:00 04/21/21 09:17 1 CAP Aspirin (Aspirin Chewable) 162 mg 1X ONCE 04/17/21 23:00 04/17/21 23:01 DC 04/17/21 22:32 162 MG Aspirin (Ecotrin) 81 mg DAILY 04/18/21 09:00 04/21/21 09:17 81 MG Atorvastatin Calcium (Lipitor) 80 mg QHS 04/18/21 21:00 04/20/21 21:36 80 MG Azithromycin (Zithromax) 250 mg DAILY 04/18/21 12:00 04/19/21 09:20 DC 04/19/21 08:43 250 MG Calcitriol (Rocaltrol) 0.25 mcg DAILY 04/18/21 09:00 04/21/21 09:20 0.25 MCG Carvedilol (Coreg) 25 mg BIDWMEALS 04/18/21 09:00 04/21/21 09:16 25 MG Ceftriaxone Sodium (Rocephin) 1 gm 1X ONCE 04/17/21 23:00 04/17/21 23:01 DC 04/17/21 23:43 1 GM Dexamethasone Sodium Phosphate (Decadron) 6 mg DAILY 04/18/21 16:00 04/21/21 09:19 6 MG Doxazosin Mesylate (Cardura) 4 mg DAILY 04/18/21 09:00 04/21/21 09:17 4 MG Fish Oil (Fish Oil) 1,000 mg DAILY 04/18/21 10:00 04/21/21 09:17 1,000 MG Heparin Sodium (Porcine) (Heparin Sodium) 5,000 unit Q12HR 04/18/21 10:00 04/21/21 09:13 5,000 UNIT Hydralazine HCl (Apresoline Inj) 10 mg PRN Q4HRS PRN 04/19/21 09:15 04/20/21 12:30 10 MG Hydralazine HCl (Apresoline) 100 mg TID 04/18/21 10:00 04/21/21 09:18 100 MG Info (PHARMACY MONITORING -- do not chart) 1 each PRN DAILY PRN 04/19/21 13:30 UNV Insulin Glargine (Lantus Syringe) 24 unit DAILY 04/21/21 09:00 04/21/21 09:14 24 UNIT Insulin Human Lispro (HumaLOG) 6 units TIDAC 04/19/21 11:30 04/21/21 12:10 6 UNITS Isosorbide Mononitrate (Imdur) 60 mg DAILY 04/18/21 09:00 04/21/21 09:19 60 MG Lactobacillus Rhamnosus (Culturelle) 1 cap BID 04/18/21 21:00 04/21/21 09:17 1 CAP Loperamide HCl (Imodium) 2 mg PRN BID PRN 04/21/21 09:45 Mirtazapine (Remeron) 30 mg QHS 04/18/21 21:00 04/20/21 21:35 30 MG Nitroglycerin (Nitrostat) 0.4 mg PRN Q5MIN PRN 04/17/21 22:30 04/17/21 22:32 0.4 MG Pantoprazole Sodium (Protonix) 40 mg DAILYAC 04/18/21 11:30 04/21/21 09:10 40 MG Piperacillin Sod/ Tazobactam Sod 2.25 gm/Sodium Chloride 50 ml @ 100 mls/hr Q8HRS 04/18/21 14:00 04/19/21 09:19 DC 04/19/21 05:44 100 MLS/HR Prochlorperazine Maleate (Compazine) 5 mg PRN Q6HRS PRN 04/18/21 13:45 04/20/21 12:30 5 MG Promethazine HCl (Phenergan) 50 mg PRN Q6HRS PRN 04/20/21 10:45 04/20/21 21:51 50 MG Remdesivir 100 mg/ Sodium Chloride 230 ml @ 460 mls/hr Q24H 04/19/21 15:00 04/22/21 15:29 04/20/21 15:24 460 MLS/HR Remdesivir 200 mg/ Sodium Chloride 210 ml @ 210 mls/hr 1X ONCE 04/18/21 15:00 04/18/21 15:59 DC 04/18/21 15:38 210 MLS/HR Sevelamer Carbonate (Renvela) 800 mg TIDWMEALS 04/18/21 12:00 04/21/21 11:55 800 MG Sodium Chloride 1,000 ml @ 400 mls/hr Q2H30M PRN 04/19/21 13:30 04/20/21 01:29 DC Tizanidine HCl (Zanaflex) 4 mg QHS 04/18/21 21:00 04/20/21 21:36 4 MG Trazodone HCl (Desyrel) 100 mg QHS 04/18/21 21:00 04/20/21 21:35 100 MG Lab Laboratory Tests Test 04/20/21 16:59 04/20/21 21:08 04/21/21 07:12 04/21/21 07:40 Glucose (Fingerstick) 327 mg/dL (70-99) 190 mg/dL (70-99) 244 mg/dL (70-99) Sodium Level 126 mmol/L (136-145) Potassium Level 4.0 mmol/L (3.5-5.1) Chloride Level 88 mmol/L (98-107) Carbon Dioxide Level 28 mmol/L (21-32) Anion Gap 10 (6-14) Blood Urea Nitrogen 42 mg/dL (8-26) Creatinine 5.6 mg/dL (0.7-1.3) Estimated GFR (Cockcroft-Gault) 12.9 Glucose Level 231 mg/dL (70-99) Calcium Level 8.3 mg/dL (8.5-10.1) Test 04/21/21 12:08 Glucose (Fingerstick) 107 mg/dL (70-99) Results All relevant outside records, renal labs, imaging studies, telemetry/EKG's were reviewed. Justicifation of Admission Dx: Justifications for Admission: Justification of Admission Dx: N/A CARLO CHAUHAN MD Apr 21, 2021 12:40
[2021-04-21] MEDS: REMDESIVIR 100mg in NORMAL SALINE 250ML X 4 DAYS IV SCH (14:52)
[2021-04-21 15:00] VITALS: BP 163/71
[2021-04-21] MEDS: HYDROcodone/APAP 7.5/325MG 1 TAB TABLET PO PRN (15:07)
[2021-04-21 20:15] VITALS: BP 210/91
[2021-04-21] MEDS: PROCHLORPERAZINE 5 MG TABLET. PO PRN (22:10)
[2021-04-21] MEDS: traZODone 100 MG TABLET. PO SCH (22:10)
[2021-04-21] MEDS: ATORVASTATIN CALCIUM 40 MG TABLET. PO SCH (22:11)
[2021-04-21] MEDS: MIRTAZAPINE 15 MG TABLET PO SCH (22:12)
[2021-04-21] MEDS: tiZANidine 4 MG TABLET. PO SCH (22:15)
[2021-04-21] MEDS: hydrALAZINE 20 MG/ML VIAL. IVP PRN (22:46)
[2021-04-21 23:00] VITALS: BP 178/73
[2021-04-22 03:00] VITALS: BP 181/87
[2021-04-22] MEDS: hydrALAZINE 20 MG/ML VIAL. IVP PRN (03:46)
[2021-04-22 07:00] VITALS: BP 207/107
[2021-04-22] MEDS: PANTOPRAZOLE 40 MG TABLET.DR. PO SCH (07:00)
[2021-04-22 07:35] LABS: BASO % 0 % (0-3); EOS % 0 % (0-3); HEMOGLOBIN 11.1 g/dL (13.0-17.5); LYMPH # 2.5 x10^3/uL (1.0-4.8); LYMPH % 22 % (24-48); MEAN CORPUSCULAR HEMOGLOBIN 28 pg (25-35); MEAN CORPUSCULAR HGB CONC 33 g/dL (31-37); MEAN CORPUSCULAR VOLUME 85 fL (79-100); MONO % 9 % (0-9); NEUT # 7.9 x10^3/uL (1.8-7.7); NEUT % 69 % (31-73); PLATELET COUNT 303 x10^3/uL (140-400); RED BLOOD COUNT 3.99 x10^6/uL (4.30-5.70); RED CELL DISTRIBUTION WIDTH 16.3 % (11.5-14.5); WHITE BLOOD COUNT 11.4 x10^3/uL (4.0-11.0)
[2021-04-22 07:55] LABS: ALBUMIN 2.4 g/dL (3.4-5.0); ALBUMIN/GLOBULIN RATIO 0.7 (1.0-1.7); CALCIUM 8.1 mg/dL (8.5-10.1); CREATININE 4.1 mg/dL (0.7-1.3); GFR 18.5; POTASSIUM 3.9 mmol/L (3.5-5.1); TOTAL BILIRUBIN 0.2 mg/dL (0.2-1.0)
[2021-04-22] MEDS: DEXAMETHASONE SOD PHOS 4 MG/ML VIAL IVP SCH (08:22)
[2021-04-22] MEDS: ISOSORBIDE MONONITRATE ER 30 MG TAB.ER.24H PO SCH (08:23)
[2021-04-22] MEDS: SEVELAMER CARBONATE 800 MG TABLET. PO SCH ×3 (08:24→18:23)
[2021-04-22] MEDS: ASPIRIN ENTERIC COATED 81 MG TABLET.DR. PO SCH (08:24)
[2021-04-22] MEDS: DOXAZOSIN MESYLATE 4 MG TABLET. PO SCH (08:24)
[2021-04-22] MEDS: CARVEDILOL 12.5 MG TABLET. PO SCH ×2 (08:24→18:24)
[2021-04-22] MEDS: LIPASE/PROTEAS/AMYLAS 10/32/42 CAPSULE.DR. PO SCH (08:24)
[2021-04-22] MEDS: LACTOBACILLUS RHAMNOSUS GG 1 CAPSULE. PO SCH ×2 (08:25→21:35)
[2021-04-22] MEDS: OMEGA-3 FATTY ACIDS/FISH OIL 1,000 MG CAPSULE. PO SCH (08:25)
[2021-04-22] MEDS: CALCITRIOL 0.25 MCG CAPSULE. PO SCH (08:25)
[2021-04-22] MEDS: PROMETHAZINE 12.5 MG TABLET. PO PRN ×2 (08:28→23:06)
[2021-04-22] MEDS: PROCHLORPERAZINE 5 MG TABLET. PO PRN ×2 (08:28→15:34)
[2021-04-22] MEDS: INSULIN LISPRO 300 UNITS/3 ML VIAL. SQ SCH ×7 (08:43→22:03)
[2021-04-22] MEDS: HEPARIN for SUB-Q USE 5,000 UNIT/ML VIAL. SQ SCH ×2 (08:43→22:03)
--- NOTE | 2021-04-22 09:03 | PDOC ---
Infectious Disease Note Subjective: Subjective Patient feels little better Remains on O2 by nasal cannula No fevers Vital Signs: Vital Signs Vital Signs Date Time Temp Pulse Resp B/P (MAP) Pulse Ox O2 Delivery O2 Flow Rate FiO2 04/22/21 08:25 68 206/107 04/22/21 07:00 97.5 20 98 Nasal Cannula 3.0 97.5 Physical Exam: PHYSICAL EXAM GENERAL: Alert, oriented x 3 male, lying in bed comfortably, in no acute distress, HEENT: Normocephalic, atraumatic. Anicteric. NECK: Supple, no JVD. LUNGS: Clear bilaterally. No wheezing. HEART: S1, S2. ABDOMEN: Soft, nontender, nondistended, no rebound or guarding. EXTREMITIES: No edema, no cyanosis. DERMATOLOGIC: Warm, dry, no generalized rash. NEUROLOGIC: Alert and oriented x 3, grossly nonfocal. Generalized weakness. PSYCHIATRIC: Calm and cooperative. Medications: Inpatient Meds: Medications reviewed. Labs: Lab Laboratory Tests Test 04/21/21 12:08 04/21/21 20:59 04/22/21 07:10 04/22/21 08:10 Glucose (Fingerstick) 107 mg/dL (70-99) 154 mg/dL (70-99) 192 mg/dL (70-99) White Blood Count 11.4 x10^3/uL (4.0-11.0) Red Blood Count 3.99 x10^6/uL (4.30-5.70) Hemoglobin 11.1 g/dL (13.0-17.5) Hematocrit 34.0 % (39.0-53.0) Mean Corpuscular Volume 85 fL (79-100) Mean Corpuscular Hemoglobin 28 pg (25-35) Mean Corpuscular Hemoglobin Concent 33 g/dL (31-37) Red Cell Distribution Width 16.3 % (11.5-14.5) Platelet Count 303 x10^3/uL (140-400) Neutrophils (%) (Auto) 69 % (31-73) Lymphocytes (%) (Auto) 22 % (24-48) Monocytes (%) (Auto) 9 % (0-9) Eosinophils (%) (Auto) 0 % (0-3) Basophils (%) (Auto) 0 % (0-3) Neutrophils # (Auto) 7.9 x10^3/uL (1.8-7.7) Lymphocytes # (Auto) 2.5 x10^3/uL (1.0-4.8) Monocytes # (Auto) 1.0 x10^3/uL (0.0-1.1) Eosinophils # (Auto) 0.0 x10^3/uL (0.0-0.7) Basophils # (Auto) 0.0 x10^3/uL (0.0-0.2) Sodium Level 129 mmol/L (136-145) Potassium Level 3.9 mmol/L (3.5-5.1) Chloride Level 92 mmol/L (98-107) Carbon Dioxide Level 30 mmol/L (21-32) Anion Gap 7 (6-14) Blood Urea Nitrogen 31 mg/dL (8-26) Creatinine 4.1 mg/dL (0.7-1.3) Estimated GFR (Cockcroft-Gault) 18.5 BUN/Creatinine Ratio 8 (6-20) Glucose Level 222 mg/dL (70-99) Calcium Level 8.1 mg/dL (8.5-10.1) Total Bilirubin 0.2 mg/dL (0.2-1.0) Aspartate Amino Transf (AST/SGOT) 11 U/L (15-37) Alanine Aminotransferase (ALT/SGPT) 13 U/L (16-63) Alkaline Phosphatase 108 U/L (46-116) Total Protein 6.0 g/dL (6.4-8.2) Albumin 2.4 g/dL (3.4-5.0) Albumin/Globulin Ratio 0.7 (1.0-1.7) Objective: Assessment: COVID-19 infection 1. Acute on chronic hypoxic respiratory failure. 2. Leukocytosis. Could have reactive component 3. Pulmonary infiltrates more on the right side. SARS COVID rapid negative. 4. End-stage renal disease, on hemodialysis. 5. History of nausea, vomiting and diarrhea, improved. Hiccups 6. Accelerated hypertension. 7. Diabetes mellitus type 2. 8. History of prostate cancer. 9. Hyponatremia Plan: Plan of Care Continue supportive care On steroids and Remdesivir Monitor off antibiotics Monitor labs and cultures Discussed with nursing staff SACHI BANUELOS MD Apr 22, 2021 09:02
--- NOTE | 2021-04-22 10:07 | PDOC ---
IM PROGRESS NOTES- Subjective Subjective Continues to have some hiccups. No complaints of dyspnea. Objective Vitals/I&O Vital Signs Date Time Temp Pulse Resp B/P (MAP) Pulse Ox O2 Delivery O2 Flow Rate FiO2 04/22/21 08:25 68 206/107 04/22/21 07:00 97.5 20 98 Nasal Cannula 3.0 97.5 I & O 04/21/21 04/21/21 04/22/21 15:00 23:00 07:00 Intake Total 480 ml 530 ml 240 ml Balance 480 ml 530 ml 240 ml Physical Exam Physical Exam General Appearance - alert and in no distress Chest - decreased breath sounds at bases Heart - S1 and S2 normal Abdomen - soft, non tender Neurological - alert and oriented Musculoskeletal - generalized weakness Extremities - no edema Labs Laboratory Tests Test 04/21/21 12:08 04/21/21 20:59 04/22/21 07:10 04/22/21 08:10 Glucose (Fingerstick) 107 mg/dL (70-99) H 154 mg/dL (70-99) H 192 mg/dL (70-99) H White Blood Count 11.4 x10^3/uL (4.0-11.0) H Red Blood Count 3.99 x10^6/uL (4.30-5.70) L Hemoglobin 11.1 g/dL (13.0-17.5) L Hematocrit 34.0 % (39.0-53.0) L Mean Corpuscular Volume 85 fL (79-100) Mean Corpuscular Hemoglobin 28 pg (25-35) Mean Corpuscular Hemoglobin Concent 33 g/dL (31-37) Red Cell Distribution Width 16.3 % (11.5-14.5) H Platelet Count 303 x10^3/uL (140-400) Neutrophils (%) (Auto) 69 % (31-73) Lymphocytes (%) (Auto) 22 % (24-48) L Monocytes (%) (Auto) 9 % (0-9) Eosinophils (%) (Auto) 0 % (0-3) Basophils (%) (Auto) 0 % (0-3) Neutrophils # (Auto) 7.9 x10^3/uL (1.8-7.7) H Lymphocytes # (Auto) 2.5 x10^3/uL (1.0-4.8) Monocytes # (Auto) 1.0 x10^3/uL (0.0-1.1) Eosinophils # (Auto) 0.0 x10^3/uL (0.0-0.7) Basophils # (Auto) 0.0 x10^3/uL (0.0-0.2) Sodium Level 129 mmol/L (136-145) L Potassium Level 3.9 mmol/L (3.5-5.1) Chloride Level 92 mmol/L (98-107) L Carbon Dioxide Level 30 mmol/L (21-32) Anion Gap 7 (6-14) Blood Urea Nitrogen 31 mg/dL (8-26) H Creatinine 4.1 mg/dL (0.7-1.3) H Estimated GFR (Cockcroft-Gault) 18.5 BUN/Creatinine Ratio 8 (6-20) Glucose Level 222 mg/dL (70-99) H Calcium Level 8.1 mg/dL (8.5-10.1) L Total Bilirubin 0.2 mg/dL (0.2-1.0) Aspartate Amino Transferase (AST) 11 U/L (15-37) L Alanine Aminotransferase (ALT) 13 U/L (16-63) L Alkaline Phosphatase 108 U/L (46-116) Total Protein 6.0 g/dL (6.4-8.2) L Albumin 2.4 g/dL (3.4-5.0) L Albumin/Globulin Ratio 0.7 (1.0-1.7) L Laboratory Tests 04/22/21 07:10 Laboratory Tests 04/22/21 07:10 Assessment Assessment 1. Pneumonia, right sided. COVID-19 pneumonia. 2. Exacerbation of chronic obstructive pulmonary disease. 3. Acute on chronic hypoxic respiratory failure. 4. End-stage renal disease, on hemodialysis Saturday, Saturday, Saturday. 5. Hiccups. 6. Gastroesophageal reflux disease. 7. Accelerated hypertension. 8. 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 9. Hyperlipidemia. 10. Coronary artery disease with history of stent placement. 11. Chronic pancreatitis. 12. Anemia. 13. History of myocardial infarction. 14. Surgery for removal of salivary gland. 15. History of prostate cancer, treated with radiation therapy. 16. Physical deconditioning. 17. Osteoarthritis. 18. Chronic back pain. PLAN: 1. Pneumonia. COVID-19 PCR test is positive. Has COVID-[address] Gray. Start IV Rocephin and Zithromax that were given yesterday. I will consult Dr. Gretel Aguilar for Infectious Disease evaluation because of his multiple medical problems. Started on IV remdesivir and IV dexamethasone. Discussed with Dr. Gray. 2. Exacerbation of COPD. 3. Acute on chronic hypoxic respiratory failure. Continue oxygen by nasal cannula. 4. End-stage renal disease, on hemodialysis. Consult Dr. Riddle for Nephrology evaluation and management. He will get hemodialysis today. 5. Persistent hiccups. Improving. Continue home medications as the patient also has gastroesophageal reflux disease. Pantoprazole. Consult Dr. Santo for GI evaluation and management. Increase promethazine. 6. COVID-19 rapid antigen test was negative in the ER. However COVID-19 PCR test is positive. 7. Diabetes mellitus not controlled due to infection as well as IV steroids. Restart Lantus and increase scheduled insulin and sliding scale insulin. 8. Accelerated hypertension. BP remains elevated even while on multiple medications. Add IV hydralazine 10 mg as needed every 4 hours. I have ordered Catapres patch today. Discussed with patient. 9. Hyponatremia. Sodium 129. Continues to have some hiccups. If stable consider discharge on Saturday. He will have to go to a special dialysis unit as outpatient for Covid patients. For details, please refer to the orders. Prognosis of this patient is poor due to his multiple medical problems. Plan Plan For more details regarding further plans, please refer to the orders. Justifications for Admission Other Justification TRINA ALDANA MD Apr 22, 2021 10:07
[2021-04-22] MEDS: INSULIN GLARGINE SYRINGE. SQ SCH (10:15)
[2021-04-22 11:00] VITALS: BP 162/70
[2021-04-22] MEDS ORDERED: cloNIDine TTS-1 1 PATCH PATCH.TDWK TD SCH (11:30)
--- NOTE | 2021-04-22 13:57 | PDOC ---
DATE OF SERVICE DATE: 04/22/21 TIME: 13:56 SUBJECTIVE ROS eeling little better On o2 by [place] OBJECTIVE Vital Signs Vital Signs Date Time Temp Pulse Resp B/P (MAP) Pulse Ox O2 Delivery O2 Flow Rate FiO2 04/22/21 11:00 98.0 75 18 162/70 (100) 99 Nasal Cannula 3.0 98.0 I & 0 Intake and Output 04/22/21 07:00 Intake Total 1250 ml Balance 1250 ml Intake Oral 1020 ml IV Total 230 ml PHYSICAL EXAM Physical Exam GENERAL: NAD HEENT: Normocephalic, atraumatic. Anicteric. NECK: Supple LUNGS: Clear bilaterally. Non labored HEART: S1, S2. ABDOMEN: Soft, nontender, nondistended, no rebound or guarding. EXTREMITIES: No edema, no cyanosis. DERMATOLOGIC: Warm, dry, no generalized rash. NEUROLOGIC: Alert and oriented x 3, grossly no focal deficit Generalized weakness. PSYCHIATRIC: Calm and cooperative. No ruth, No CVA or SP tenderness DIAGNOSIS/ASSESSMENT Assessment & Plan ESRD on HD MWF, . Currently No indication for dialysis today . Undergoing Renal Tx eval at [facility] HypoNatremia- Low , stable, Monitor HyperKalemia- resolved Acute on chronic hypoxic respiratory failure on 3 lts o2 by [place] .CoVid Positive Management per Pulm/ID Hiccups- per GI COVID 19 Pneumonia Accelerated hypertension Antihypertensives,. Renal Doppler in Aug 2019, No e/o JOSELYN .On multiple antihypertensives Will try Clonidine patch Diabetes mellitus type 2. History of prostate cancer.s/p Radiation treatment Anemia - stable , No indication for LUCHO HX of CAD and DE COMMENT/RELEVANT DATA Meds Current Medications Medications (Trade) Dose Ordered Sig/Ravinder Start Time Stop Time Status Last Admin Dose Admin Acetaminophen (Tylenol) 650 mg PRN Q6HRS PRN 04/18/21 08:45 Acetaminophen/ Hydrocodone Bitart (Lortab 7.5/325) 1 tab PRN Q6HRS PRN 04/18/21 08:45 04/21/21 15:07 1 TAB Albumin Human 100 ml @ 100 mls/hr 1X PRN PRN 04/19/21 13:30 04/19/21 19:29 DC Albuterol Sulfate (Ventolin Neb Soln) 2.5 mg PRN Q4HRS PRN 04/18/21 10:30 Albuterol/ Ipratropium (Duoneb) 3 ml RTQID 04/18/21 12:00 04/18/21 12:01 DC Amlodipine Besylate (Norvasc) 10 mg DAILY 04/18/21 09:00 04/22/21 08:25 10 MG Amylase/Lipase/ Protease (Zenpep 10,000) 1 cap [id number] 04/18/21 09:00 04/22/21 08:24 1 CAP Aspirin (Aspirin Chewable) 162 mg 1X ONCE 04/17/21 23:00 04/17/21 23:01 DC 04/17/21 22:32 162 MG Aspirin (Ecotrin) 81 mg DAILY 04/18/21 09:00 04/22/21 08:24 81 MG Atorvastatin Calcium (Lipitor) 80 mg QHS 04/18/21 21:00 04/21/21 22:11 80 MG Azithromycin (Zithromax) 250 mg DAILY 04/18/21 12:00 04/19/21 09:20 DC 04/19/21 08:43 250 MG Calcitriol (Rocaltrol) 0.25 mcg DAILY 04/18/21 09:00 04/22/21 08:25 0.25 MCG Carvedilol (Coreg) 25 mg BIDWMEALS 04/18/21 09:00 04/22/21 08:24 25 MG Ceftriaxone Sodium (Rocephin) 1 gm 1X ONCE 04/17/21 23:00 04/17/21 23:01 DC 04/17/21 23:43 1 GM Clonidine HCl (Catapres Tts-1) 1 patch Sa@0900 04/22/21 11:30 04/22/21 12:28 1 PATCH Dexamethasone Sodium Phosphate (Decadron) 6 mg DAILY 04/18/21 16:00 04/22/21 08:22 6 MG Doxazosin Mesylate (Cardura) 4 mg DAILY 04/18/21 09:00 04/22/21 08:24 4 MG Fish Oil (Fish Oil) 1,000 mg DAILY 04/18/21 10:00 04/22/21 08:25 1,000 MG Heparin Sodium (Porcine) (Heparin Sodium) 5,000 unit Q12HR 04/18/21 10:00 04/22/21 08:43 5,000 UNIT Hydralazine HCl (Apresoline Inj) 10 mg PRN Q4HRS PRN 04/19/21 09:15 04/22/21 03:46 10 MG Hydralazine HCl (Apresoline) 100 mg TID 04/18/21 10:00 04/22/21 08:25 100 MG Info (PHARMACY MONITORING -- do not chart) 1 each PRN DAILY PRN 04/19/21 13:30 UNV Insulin Glargine (Lantus Syringe) 24 unit DAILY 04/21/21 09:00 04/22/21 10:15 24 UNIT Insulin Human Lispro (HumaLOG) 6 units TIDAC 04/19/21 11:30 04/22/21 12:37 6 UNITS Isosorbide Mononitrate (Imdur) 60 mg DAILY 04/18/21 09:00 04/22/21 08:23 60 MG Lactobacillus Rhamnosus (Culturelle) 1 cap BID 04/18/21 21:00 04/22/21 08:25 1 CAP Loperamide HCl (Imodium) 2 mg PRN BID PRN 04/21/21 09:45 04/22/21 08:46 2 MG Mirtazapine (Remeron) 30 mg QHS 04/18/21 21:00 04/21/21 22:12 30 MG Nitroglycerin (Nitrostat) 0.4 mg PRN Q5MIN PRN 04/17/21 22:30 04/17/21 22:32 0.4 MG Pantoprazole Sodium (Protonix) 40 mg DAILYAC 04/18/21 11:30 04/22/21 07:00 40 MG Piperacillin Sod/ Tazobactam Sod 2.25 gm/Sodium Chloride 50 ml @ 100 mls/hr Q8HRS 04/18/21 14:00 04/19/21 09:19 DC 04/19/21 05:44 100 MLS/HR Prochlorperazine Maleate (Compazine) 5 mg PRN Q6HRS PRN 04/18/21 13:45 04/22/21 08:28 5 MG Promethazine HCl (Phenergan) 50 mg PRN Q6HRS PRN 04/20/21 10:45 04/22/21 08:28 50 MG Remdesivir 100 mg/ Sodium Chloride 230 ml @ 460 mls/hr Q24H 04/19/21 15:00 04/22/21 15:29 04/21/21 14:52 460 MLS/HR Remdesivir 200 mg/ Sodium Chloride 210 ml @ 210 mls/hr 1X ONCE 04/18/21 15:00 04/18/21 15:59 DC 04/18/21 15:38 210 MLS/HR Sevelamer Carbonate (Renvela) 800 mg TIDWMEALS 04/18/21 12:00 04/22/21 12:28 800 MG Sodium Chloride 1,000 ml @ 400 mls/hr Q2H30M PRN 04/19/21 13:30 04/20/21 01:29 DC Tizanidine HCl (Zanaflex) 4 mg QHS 04/18/21 21:00 04/21/21 22:15 4 MG Trazodone HCl (Desyrel) 100 mg QHS 04/18/21 21:00 04/21/21 22:10 100 MG Lab Laboratory Tests Test 04/21/21 20:59 04/22/21 07:10 04/22/21 08:10 04/22/21 12:01 Glucose (Fingerstick) 154 mg/dL (70-99) 192 mg/dL (70-99) 197 mg/dL (70-99) White Blood Count 11.4 x10^3/uL (4.0-11.0) Red Blood Count 3.99 x10^6/uL (4.30-5.70) Hemoglobin 11.1 g/dL (13.0-17.5) Hematocrit 34.0 % (39.0-53.0) Mean Corpuscular Volume 85 fL (79-100) Mean Corpuscular Hemoglobin 28 pg (25-35) Mean Corpuscular Hemoglobin Concent 33 g/dL (31-37) Red Cell Distribution Width 16.3 % (11.5-14.5) Platelet Count 303 x10^3/uL (140-400) Neutrophils (%) (Auto) 69 % (31-73) Lymphocytes (%) (Auto) 22 % (24-48) Monocytes (%) (Auto) 9 % (0-9) Eosinophils (%) (Auto) 0 % (0-3) Basophils (%) (Auto) 0 % (0-3) Neutrophils # (Auto) 7.9 x10^3/uL (1.8-7.7) Lymphocytes # (Auto) 2.5 x10^3/uL (1.0-4.8) Monocytes # (Auto) 1.0 x10^3/uL (0.0-1.1) Eosinophils # (Auto) 0.0 x10^3/uL (0.0-0.7) Basophils # (Auto) 0.0 x10^3/uL (0.0-0.2) Sodium Level 129 mmol/L (136-145) Potassium Level 3.9 mmol/L (3.5-5.1) Chloride Level 92 mmol/L (98-107) Carbon Dioxide Level 30 mmol/L (21-32) Anion Gap 7 (6-14) Blood Urea Nitrogen 31 mg/dL (8-26) Creatinine 4.1 mg/dL (0.7-1.3) Estimated GFR (Cockcroft-Gault) 18.5 BUN/Creatinine Ratio 8 (6-20) Glucose Level 222 mg/dL (70-99) Calcium Level 8.1 mg/dL (8.5-10.1) Total Bilirubin 0.2 mg/dL (0.2-1.0) Aspartate Amino Transf (AST/SGOT) 11 U/L (15-37) Alanine Aminotransferase (ALT/SGPT) 13 U/L (16-63) Alkaline Phosphatase 108 U/L (46-116) Total Protein 6.0 g/dL (6.4-8.2) Albumin 2.4 g/dL (3.4-5.0) Albumin/Globulin Ratio 0.7 (1.0-1.7) Results All relevant outside records, renal labs, imaging studies, telemetry/EKG's were reviewed. Justicifation of Admission Dx: Justifications for Admission: Justification of Admission Dx: N/A CARLO CHAUHAN MD Apr 22, 2021 13:57
[2021-04-22 15:00] VITALS: BP 175/74
[2021-04-22] MEDS: REMDESIVIR 100mg in NORMAL SALINE 250ML X 4 DAYS IV SCH ×2 (15:00→15:34)
[2021-04-22 19:50] VITALS: BP 206/86
[2021-04-22] MEDS: tiZANidine 4 MG TABLET. PO SCH (21:35)
[2021-04-22] MEDS: ATORVASTATIN CALCIUM 40 MG TABLET. PO SCH (21:35)
[2021-04-22] MEDS: MIRTAZAPINE 15 MG TABLET PO SCH (21:36)
[2021-04-22] MEDS: traZODone 100 MG TABLET. PO SCH (21:37)
[2021-04-22] MEDS: cloNIDine HCL 0.1 MG TABLET PO PRN (21:47)
[2021-04-22] MEDS: HYDROcodone/APAP 7.5/325MG 1 TAB TABLET PO PRN (21:48)
[2021-04-22 23:23] VITALS: BP 196/89
[2021-04-23] MEDS: hydrALAZINE 20 MG/ML VIAL. IVP PRN ×4 (00:08→20:35)
[2021-04-23] MEDS: PROCHLORPERAZINE 5 MG TABLET. PO PRN ×3 (03:19→20:34)
[2021-04-23 03:34] VITALS: BP 226/95
[2021-04-23] MEDS: cloNIDine HCL 0.1 MG TABLET PO PRN ×2 (04:59→17:50)
[2021-04-23] MEDS: PANTOPRAZOLE 40 MG TABLET.DR. PO SCH (06:46)
[2021-04-23 07:00] VITALS: BP 205/95
[2021-04-23 07:24] LABS: CALCIUM 8.1 mg/dL (8.5-10.1); CREATININE 5.2 mg/dL (0.7-1.3); GFR 14.1; POTASSIUM 4.5 mmol/L (3.5-5.1)
[2021-04-23] MEDS: LIPASE/PROTEAS/AMYLAS 10/32/42 CAPSULE.DR. PO SCH (08:37)
[2021-04-23] MEDS: OMEGA-3 FATTY ACIDS/FISH OIL 1,000 MG CAPSULE. PO SCH (08:40)
[2021-04-23] MEDS: ISOSORBIDE MONONITRATE ER 30 MG TAB.ER.24H PO SCH (08:40)
[2021-04-23] MEDS: CARVEDILOL 12.5 MG TABLET. PO SCH ×2 (08:40→17:49)
[2021-04-23] MEDS: DOXAZOSIN MESYLATE 4 MG TABLET. PO SCH (08:41)
[2021-04-23] MEDS: LACTOBACILLUS RHAMNOSUS GG 1 CAPSULE. PO SCH ×2 (08:41→20:30)
[2021-04-23] MEDS: ASPIRIN ENTERIC COATED 81 MG TABLET.DR. PO SCH (08:41)
[2021-04-23] MEDS: SEVELAMER CARBONATE 800 MG TABLET. PO SCH ×3 (08:41→17:42)
[2021-04-23] MEDS: CALCITRIOL 0.25 MCG CAPSULE. PO SCH (08:41)
[2021-04-23] MEDS: PROMETHAZINE 12.5 MG TABLET. PO PRN (08:42)
[2021-04-23] MEDS: INSULIN GLARGINE SYRINGE. SQ SCH (08:56)
[2021-04-23] MEDS: INSULIN LISPRO 300 UNITS/3 ML VIAL. SQ SCH ×7 (08:56→20:43)
[2021-04-23] MEDS: HEPARIN for SUB-Q USE 5,000 UNIT/ML VIAL. SQ SCH ×2 (08:57→20:42)
--- NOTE | 2021-04-23 09:18 | PDOC ---
Infectious Disease Note Subjective: Subjective Patient remains on O2 by nasal cannula No fevers Discussed with RN Vital Signs: Vital Signs Vital Signs Date Time Temp Pulse Resp B/P (MAP) Pulse Ox O2 Delivery O2 Flow Rate FiO2 04/23/21 08:41 68 205/95 04/23/21 07:00 97.7 14 100 Nasal Cannula 3.0 97.7 Physical Exam: PHYSICAL EXAM GENERAL: Alert, oriented x 3 male, lying in bed comfortably, in no acute distress, HEENT: Normocephalic, atraumatic. Anicteric. NECK: Supple, no JVD. LUNGS: Clear bilaterally. No wheezing. HEART: S1, S2. ABDOMEN: Soft, nontender, nondistended, no rebound or guarding. EXTREMITIES: No edema, no cyanosis. DERMATOLOGIC: Warm, dry, no generalized rash. NEUROLOGIC: Alert and oriented x 3, grossly nonfocal. Generalized weakness. PSYCHIATRIC: Calm and cooperative. Medications: Inpatient Meds: Medications reviewed. Labs: Lab Laboratory Tests Test 04/22/21 12:01 04/22/21 17:04 04/22/21 20:30 04/23/21 05:45 Glucose (Fingerstick) 197 mg/dL (70-99) 258 mg/dL (70-99) 286 mg/dL (70-99) Sodium Level 118 mmol/L (136-145) Potassium Level 4.5 mmol/L (3.5-5.1) Chloride Level 84 mmol/L (98-107) Carbon Dioxide Level 25 mmol/L (21-32) Anion Gap 9 (6-14) Blood Urea Nitrogen 49 mg/dL (8-26) Creatinine 5.2 mg/dL (0.7-1.3) Estimated GFR (Cockcroft-Gault) 14.1 Glucose Level 375 mg/dL (70-99) Calcium Level 8.1 mg/dL (8.5-10.1) Objective: Assessment: COVID-19 infection 1. Acute on chronic hypoxic respiratory failure. 2. Leukocytosis. Could have reactive component 3. Pulmonary infiltrates more on the right side. SARS COVID rapid negative. 4. End-stage renal disease, on hemodialysis. 5. History of nausea, vomiting and diarrhea, improved. Hiccups 6. Accelerated hypertension. 7. Diabetes mellitus type 2. 8. History of prostate cancer. 9. Hyponatremia Plan: Plan of Care Continue supportive care On steroids and Remdesivir Monitor off antibiotics Monitor labs and cultures Discussed with nursing staff SACHI BANUELOS MD Apr 23, 2021 09:18
--- NOTE | 2021-04-23 10:57 | PDOC ---
Provider Note Date of Service: DATE: 04/23/21 TIME: 10:56 Provider Note Patient not seen today as he was in the restroom. Justifications for Admission Other Justification FABY ROSE MD Apr 23, 2021 10:57
[2021-04-23] MEDS ORDERED: MIDAZOLAM HCL/PF 2 MG/2 ML VIAL. ONE (11:03)
[2021-04-23] MEDS ORDERED: LIDOCAINE 2% PF 5 ML VIAL. ONE (11:06)
[2021-04-23 11:19] VITALS: BP 207/86
--- NOTE | 2021-04-23 11:42 | PDOC ---
PROGRESS NOTES Date of Service: DATE: 04/23/21 TIME: 11:38 Subjective Subjective feels tired Objective Objective Vital Signs Date Time Temp Pulse Resp B/P (MAP) Pulse Ox O2 Delivery O2 Flow Rate FiO2 04/23/21 11:19 97.1 66 12 207/86 (126) 100 Nasal Cannula 3.0 97.1 Intake and Output 04/23/21 07:00 Intake Total 1450 ml Output Total 200 ml Balance 1250 ml Intake Oral 1450 ml Output Urine Total 200 ml # Voids 1 Physical Exam Abdomen: Soft Heart: Normal S1, Normal S2 General: Alert HEENT: Atraumatic Lungs: Clear to auscultation MUSCULOSKELETAL: No joint tenderness, No deformity, No muscular tenderness noted Neuro: Normal speech Psych/Mental Status: Mental status NL Skin: No breakdown Diagnosis Problem List Problems Medical Problems: (1) Chronic respiratory failure Status: Acute (2) ESRD on dialysis Status: Acute (3) Pneumonia Status: Acute Assessment Assessment 1. Pneumonia, bilateral COVID-19 pneumonia. 2. Exacerbation of chronic obstructive pulmonary disease. 3. Acute on chronic hypoxic respiratory failure. 4. End-stage renal disease, on hemodialysis Saturday, Saturday, Saturday. 5. Hiccups. 6. Gastroesophageal reflux disease. 7. Accelerated hypertension. 8. 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 9. Hyperlipidemia. 10. Coronary artery disease with history of stent placement. 11. Chronic pancreatitis. 12. Anemia. 13. History of myocardial infarction. 14. Surgery for removal of salivary gland. 15. History of prostate cancer, treated with radiation therapy. 16. Physical deconditioning. 17. Osteoarthritis. 18. Chronic back pain. PLAN:CT scan chest noted. NA 118 today ,yesterday 129, pt drinking free water. fluid restriction.renal taking care of low NA no iv access,needs picc line or central line 1. Pneumonia. COVID-19 PCR test is positive. Has COVID-[address] Gray. Start IV Rocephin and Zithromax that were given yesterday. I will consult Dr. Gretel Aguilar for Infectious Disease evaluation because of his multiple medical problems. Started on IV remdesivir and IV dexamethasone. Discussed with Dr. Gray. 2. Exacerbation of COPD. 3. Acute on chronic hypoxic respiratory failure. Continue oxygen by nasal cannula. 4. End-stage renal disease, on hemodialysis. Consult Dr. Riddle for Nephrology evaluation and management. He will get hemodialysis today. 5. Persistent hiccups. Improving. Continue home medications as the patient also has gastroesophageal reflux disease. Pantoprazole. Consult Dr. Santo for GI evaluation and management. Increase promethazine. 6. COVID-19 rapid antigen test was negative in the ER. However COVID-19 PCR test is positive. 7. Diabetes mellitus not controlled due to infection as well as IV steroids. Restart Lantus and increase scheduled insulin and sliding scale insulin. 8. Accelerated hypertension. BP remains elevated even while on multiple medications. Add IV hydralazine 10 mg as needed every 4 hours. I have ordered Catapres patch today. Discussed with patient. 9. Hyponatremia. Sodium 129. Continues to have some hiccups. If stable consider discharge on Saturday. He will have to go to a special dialysis unit as outpatient for Covid patients. For details, please refer to the orders. Prognosis of this patient is poor due to his multiple medical problems. Plan Plan of Care Problems Medical Problems: (1) Chronic respiratory failure Status: Acute (2) ESRD on dialysis Status: Acute (3) Pneumonia Status: Acute Comment Review of Relevant I have reviewed the following items donell (where applicable) has been applied. Labs Laboratory Tests Test 04/22/21 12:01 04/22/21 17:04 04/22/21 20:30 04/23/21 05:45 Glucose (Fingerstick) 197 mg/dL (70-99) 258 mg/dL (70-99) 286 mg/dL (70-99) Sodium Level 118 mmol/L (136-145) Potassium Level 4.5 mmol/L (3.5-5.1) Chloride Level 84 mmol/L (98-107) Carbon Dioxide Level 25 mmol/L (21-32) Anion Gap 9 (6-14) Blood Urea Nitrogen 49 mg/dL (8-26) Creatinine 5.2 mg/dL (0.7-1.3) Estimated GFR (Cockcroft-Gault) 14.1 Glucose Level 375 mg/dL (70-99) Calcium Level 8.1 mg/dL (8.5-10.1) Microbiology 04/18/21 Blood Culture - Final, Complete NO GROWTH AFTER 5 DAYS Medications Current Medications Clonidine HCl (Catapres) 0.1 mg PRN Q8HRS PRN PO ELEVATED BP, SEE COMMENTS Last administered on 04/23/21at 04:59; Start 04/22/21 at 21:00 Insulin Human Lispro (HumaLOG) 0-8 UNITS QIDACHS SQ Last administered on 04/23/21at 08:56; Start 04/22/21 at 21:00 Lidocaine HCl (Lidocaine Pf 2% Vial) 5 ml STK-MED ONCE .ROUTE ; Start 04/23/21 a t 11:06; Stop 04/23/21 at 11:07; Status DC Midazolam HCl (Versed) 2 mg STK-MED ONCE .ROUTE ; Start 04/23/21 at 11:03; Stop 04/23/21 at 11:03; Status DC Sodium Chloride 1,000 ml @ 100 mls/hr Q10H IV ; Start 04/23/21 at 09:00 Vitals/I & O Vital Sign - Last 24 Hours 04/22/21 04/22/21 04/22/21 04/22/21 15:00 15:34 18:24 19:50 Temp 96.9 97.7 96.9 97.7 Pulse 64 64 64 66 Resp 18 18 B/P (MAP) 175/74 (107) 175/74 175/74 206/86 (126) Pulse Ox 100 98 O2 Delivery Nasal Cannula Nasal Cannula O2 Flow Rate 3.0 3.0 04/22/21 04/22/21 04/22/21 04/22/21 20:00 21:47 21:47 21:48 Pulse 68 68 Resp 18 B/P (MAP) 194/82 194/82 Pulse Ox 98 O2 Delivery Nasal Cannula Nasal Cannula O2 Flow Rate 3.0 04/22/21 04/22/21 04/23/21 04/23/21 22:18 23:23 03:34 04:59 Temp 97.8 97.7 97.8 97.7 Pulse 70 68 68 Resp 16 14 20 B/P (MAP) 196/89 (124) 226/95 (138) 209/95 Pulse Ox 94 94 100 O2 Delivery Nasal Cannula Nasal Cannula Nasal Cannula O2 Flow Rate 3.0 3.0 3.0 04/23/21 04/23/21 04/23/21 04/23/21 07:00 08:00 08:40 08:40 Temp 97.7 97.7 Pulse 68 68 68 Resp 14 B/P (MAP) (131) Pulse Ox 100 O2 Delivery Nasal Cannula Room Air O2 Flow Rate 3.0 04/23/21 04/23/21 04/23/21 04/23/21 08:40 08:41 08:41 11:19 Temp 97.1 97.1 Pulse 68 68 68 66 Resp 12 B/P (MAP) 207/86 (126) Pulse Ox 100 O2 Delivery Nasal Cannula O2 Flow Rate 3.0 Intake and Output 04/22/21 04/22/21 04/23/21 15:00 23:00 07:00 Intake Total 700 ml 420 ml 330 ml Output Total 200 ml 0 ml Balance 700 ml 220 ml 330 ml Justifications for Admission Other Justification INÉS WALTER MD Apr 23, 2021 11:42
[2021-04-23] MEDS: BACLOFEN 10 MG TABLET. PO SCH ×2 (12:27→20:30)
[2021-04-23] MEDS: DEXAMETHASONE SOD PHOS 4 MG/ML VIAL IVP SCH (12:27)
[2021-04-23] MEDS: IV NORMAL SALINE 1000ML BAG 1,000 ML IV SCH ×2 (12:29→20:28)
[2021-04-23] MEDS: HYDROcodone/APAP 7.5/325MG 1 TAB TABLET PO PRN ×2 (12:48→20:46)
--- NOTE | 2021-04-23 12:53 | PDOC ---
Provider Note Date of Service: DATE: 04/23/21 TIME: 12:44 Provider Note Called for CVL placement for COVID 19 positive patient on dialysis. Na is 118. No ICU beds available. Procedure done at bedside on Med/Surg unit under local only, no sedation. On monitored bed, US used for right IJ line placement. Standard prep and drape. 1% local for procedure. Standard Seldinger technique used. #18 gauge Cook needle for IJ entry first attempt with non pusitile dark red blood returned. Column of blood was non pusitile and dark red. Three lumen line passed easily over wire. Lines aspirated and flushed. Sewn in place at 18 cm. Sterile dressing applied. CXR showed good placement of line. No complications. Juan Epstein MD Justifications for Admission Other Justification JUAN EPSTEIN MD Apr 23, 2021 12:53
[2021-04-23 13:05] LABS: POTASSIUM 3.9 mmol/L (3.5-5.1)
--- NOTE | 2021-04-23 13:31 | RAD ---
INDICATION: Reason: Central line placement, / Spl. Instructions: / History: COMPARISON: April 17, 2021 FINDINGS: Single view of chest obtained. Right-sided vascular catheter with tip projecting over the superior vena cava. Repeat demonstration of some interstitial opacities bilaterally with mild groundglass component. Card iomediastinal silhouette similar prior IMPRESSION: * Right-sided vascular catheter with tip projecting over SVC. * Mild interstitial and groundglass opacities which could be from the patient's previously identifie d multifocal infiltrate Electronically signed by: Elia Martinez MD (04/23/2021 1:28 PM) [id number]
--- NOTE | 2021-04-23 14:48 | PDOC ---
DATE OF SERVICE DATE: 04/23/21 TIME: 14:47 SUBJECTIVE ROS States just feeling tired OBJECTIVE Vital Signs Vital Signs Date Time Temp Pulse Resp B/P (MAP) Pulse Ox O2 Delivery O2 Flow Rate FiO2 04/23/21 14:33 66 185/79 04/23/21 14:30 Room Air 3.0 04/23/21 11:19 97.1 12 100 97.1 I & 0 Intake and Output 04/23/21 07:00 Intake Total 1450 ml Output Total 200 ml Balance 1250 ml Intake Oral 1450 ml Output Urine Total 200 ml # Voids 1 PHYSICAL EXAM Physical Exam GENERAL: NAD HEENT: Normocephalic, atraumatic. Anicteric. NECK: Supple LUNGS: Clear bilaterally. Non labored HEART: S1, S2. ABDOMEN: Soft, nontender, nondistended, no rebound or guarding. EXTREMITIES: No edema, no cyanosis. DERMATOLOGIC: Warm, dry, no generalized rash. NEUROLOGIC: Alert and oriented x 3, grossly no focal deficit Generalized weakness. PSYCHIATRIC: Calm and cooperative. No ruth, No CVA or SP tenderness DIAGNOSIS/ASSESSMENT Assessment & Plan ESRD on HD MWF, . Currently No indication for dialysis today . Undergoing Renal Tx eval at HypoNatremia- worsening . He is On Trazadone (for approx 1 year) and Mirtazipine (6 Months) Patient hesistant to hold Trazadone as it heps to Sleep. Will Hold Mirtazipine Started IV NS, Monitor . Restrict free water intake to 1500 cc HyperKalemia- resolved Acute on chronic hypoxic respiratory failure on 3 lts o2 by NC .CoVid Positive Management per Pulm/ID Hiccups- per GI COVID 19 Pneumonia Accelerated hypertension Antihypertensives,. Renal Doppler in Aug 2019, No e/o JOSELYN .On multiple antihypertensives Will try Clonidine patch Diabetes mellitus type 2. History of prostate cancer.s/p Radiation treatment Anemia - stable , No indication for LUCHO HX of CAD and MA COMMENT/RELEVANT DATA Meds Current Medications Medications (Trade) Dose Ordered Sig/Ravinder Start Time Stop Time Status Last Admin Dose Admin Acetaminophen (Tylenol) 650 mg PRN Q6HRS PRN 04/18/21 08:45 Acetaminophen/ Hydrocodone Bitart (Lortab 7.5/325) 1 tab PRN Q6HRS PRN 04/18/21 08:45 04/23/21 12:48 1 TAB Albumin Human 100 ml @ 100 mls/hr 1X PRN PRN 04/19/21 13:30 04/19/21 19:29 DC Albuterol Sulfate (Ventolin Neb Soln) 2.5 mg PRN Q4HRS PRN 04/18/21 10:30 Albuterol/ Ipratropium (Duoneb) 3 ml RTQID 04/18/21 12:00 04/18/21 12:01 DC Amlodipine Besylate (Norvasc) 10 mg DAILY 04/18/21 09:00 04/23/21 08:41 10 MG Amylase/Lipase/ Protease (Zenpep 10,000) 1 cap DAILYWBKFT 04/18/21 09:00 04/23/21 08:37 1 CAP Aspirin (Aspirin Chewable) 162 mg 1X ONCE 04/17/21 23:00 04/17/21 23:01 DC 04/17/21 22:32 162 MG Aspirin (Ecotrin) 81 mg DAILY 04/18/21 09:00 04/23/21 08:41 81 MG Atorvastatin Calcium (Lipitor) 80 mg QHS 04/18/21 21:00 04/22/21 21:35 80 MG Azithromycin (Zithromax) 250 mg DAILY 04/18/21 12:00 04/19/21 09:20 DC 04/19/21 08:43 250 MG Baclofen (Lioresal) 5 mg TID 04/23/21 14:00 04/24/21 13:59 04/23/21 12:27 5 MG Calcitriol (Rocaltrol) 0.25 mcg DAILY 04/18/21 09:00 04/23/21 08:41 0.25 MCG Carvedilol (Coreg) 25 mg BIDWMEALS 04/18/21 09:00 04/23/21 08:40 25 MG Ceftriaxone Sodium (Rocephin) 1 gm 1X ONCE 04/17/21 23:00 04/17/21 23:01 DC 04/17/21 23:43 1 GM Clonidine HCl (Catapres Tts-1) 1 patch Sa@0900 04/22/21 11:30 04/22/21 12:28 1 PATCH Clonidine HCl (Catapres) 0.1 mg PRN Q8HRS PRN 04/22/21 21:00 04/23/21 04:59 0.1 MG Dexamethasone Sodium Phosphate (Decadron) 6 mg DAILY 04/18/21 16:00 04/23/21 12:27 6 MG Doxazosin Mesylate (Cardura) 4 mg DAILY 04/18/21 09:00 04/23/21 08:41 4 MG Fish Oil (Fish Oil) 1,000 mg DAILY 04/18/21 10:00 04/23/21 08:40 1,000 MG Heparin Sodium (Porcine) (Heparin Sodium) 5,000 unit Q12HR 04/18/21 10:00 04/23/21 08:57 5,000 UNIT Hydralazine HCl (Apresoline Inj) 10 mg PRN Q4HRS PRN 04/19/21 09:15 04/23/21 12:28 10 MG Hydralazine HCl (Apresoline) 100 mg TID 04/18/21 10:00 04/23/21 14:33 100 MG Info (PHARMACY MONITORING -- do not chart) 1 each PRN DAILY PRN 04/19/21 13:30 UNV Insulin Glargine (Lantus Syringe) 24 unit DAILY 04/21/21 09:00 04/23/21 08:56 24 UNIT Insulin Human Lispro (HumaLOG) 0-8 UNITS QIDACHS 04/22/21 21:00 04/23/21 12:46 2 UNITS Isosorbide Mononitrate (Imdur) 60 mg DAILY 04/18/21 09:00 04/23/21 08:40 60 MG Lactobacillus Rhamnosus (Culturelle) 1 cap BID 04/18/21 21:00 04/23/21 08:41 1 CAP Lidocaine HCl (Lidocaine Pf 2% Vial) 5 ml STK-MED ONCE 04/23/21 11:06 04/23/21 11:07 DC Loperamide HCl (Imodium) 2 mg PRN BID PRN 04/21/21 09:45 04/22/21 08:46 2 MG Midazolam HCl (Versed) 2 mg STK-MED ONCE 04/23/21 11:03 04/23/21 11:03 DC Mirtazapine (Remeron) 30 mg QHS 04/18/21 21:00 04/22/21 21:36 30 MG Nitroglycerin (Nitrostat) 0.4 mg PRN Q5MIN PRN 04/17/21 22:30 04/17/21 22:32 0.4 MG Pantoprazole Sodium (Protonix) 40 mg DAILYAC 04/18/21 11:30 04/23/21 06:46 40 MG Piperacillin Sod/ Tazobactam Sod 2.25 gm/Sodium Chloride 50 ml @ 100 mls/hr Q8HRS 04/18/21 14:00 04/19/21 09:19 DC 04/19/21 05:44 100 MLS/HR Prochlorperazine Maleate (Compazine) 5 mg PRN Q6HRS PRN 04/18/21 13:45 04/23/21 08:41 5 MG Promethazine HCl (Phenergan) 50 mg PRN Q6HRS PRN 04/20/21 10:45 04/23/21 08:42 37.5 MG Remdesivir 100 mg/ Sodium Chloride 230 ml @ 460 mls/hr Q24H 04/19/21 15:00 04/22/21 15:29 DC 04/22/21 15:00 460 MLS/HR Remdesivir 200 mg/ Sodium Chloride 210 ml @ 210 mls/hr 1X ONCE 04/18/21 15:00 04/18/21 15:59 DC 04/18/21 15:38 210 MLS/HR Sevelamer Carbonate (Renvela) 800 mg TIDWMEALS 04/18/21 12:00 04/23/21 12:27 800 MG Sodium Chloride 1,000 ml @ 100 mls/hr Q10H 04/23/21 09:00 04/23/21 12:29 100 MLS/HR Tizanidine HCl (Zanaflex) 4 mg QHS 04/18/21 21:00 04/22/21 21:35 4 MG Trazodone HCl (Desyrel) 100 mg QHS 04/18/21 21:00 04/22/21 21:37 100 MG Lab Laboratory Tests Test 04/22/21 17:04 04/22/21 20:30 04/23/21 05:45 04/23/21 12:27 Glucose (Fingerstick) 258 mg/dL (70-99) 286 mg/dL (70-99) 191 mg/dL (70-99) Sodium Level 118 mmol/L (136-145) Potassium Level 4.5 mmol/L (3.5-5.1) Chloride Level 84 mmol/L (98-107) Carbon Dioxide Level 25 mmol/L (21-32) Anion Gap 9 (6-14) Blood Urea Nitrogen 49 mg/dL (8-26) Creatinine 5.2 mg/dL (0.7-1.3) Estimated GFR (Cockcroft-Gault) 14.1 Glucose Level 375 mg/dL (70-99) Calcium Level 8.1 mg/dL (8.5-10.1) Test 04/23/21 12:45 Sodium Level 119 mmol/L (136-145) Potassium Level 3.9 mmol/L (3.5-5.1) Chloride Level 86 mmol/L (98-107) Carbon Dioxide Level 28 mmol/L (21-32) Anion Gap 5 (6-14) Results All relevant outside records, renal labs, imaging studies, telemetry/EKG's were reviewed. Justicifation of Admission Dx: Justifications for Admission: Justification of Admission Dx: N/A CARLO CHAUHAN MD Apr 23, 2021 14:48
[2021-04-23 15:00] VITALS: BP 185/79
[2021-04-23 19:00] VITALS: BP 172/77
[2021-04-23] MEDS: ATORVASTATIN CALCIUM 40 MG TABLET. PO SCH (20:29)
[2021-04-23] MEDS: traZODone 100 MG TABLET. PO SCH (20:29)
[2021-04-23] MEDS: tiZANidine 4 MG TABLET. PO SCH (20:30)
[2021-04-23 23:01] VITALS: BP 167/70
[2021-04-24 03:03] VITALS: BP 178/75
[2021-04-24] MEDS: hydrALAZINE 20 MG/ML VIAL. IVP PRN (03:16)
[2021-04-24] MEDS: HYDROcodone/APAP 7.5/325MG 1 TAB TABLET PO PRN ×3 (04:47→20:24)
[2021-04-24 05:16] LABS: BASO # 0.1 x10^3/uL (0.0-0.2); BASO % 1 % (0-3); EOS % 0 % (0-3); HEMATOCRIT 30.2 % (39.0-53.0); HEMOGLOBIN 10.2 g/dL (13.0-17.5); LYMPH # 1.5 x10^3/uL (1.0-4.8); LYMPH % 14 % (24-48); MEAN CORPUSCULAR HEMOGLOBIN 29 pg (25-35); MEAN CORPUSCULAR HGB CONC 34 g/dL (31-37); MEAN CORPUSCULAR VOLUME 85 fL (79-100); MONO # 0.7 x10^3/uL (0.0-1.1); MONO % 6 % (0-9); NEUT # 8.5 x10^3/uL (1.8-7.7); NEUT % 79 % (31-73); PLATELET COUNT 286 x10^3/uL (140-400); RED BLOOD COUNT 3.55 x10^6/uL (4.30-5.70); RED CELL DISTRIBUTION WIDTH 16.3 % (11.5-14.5); WHITE BLOOD COUNT 10.8 x10^3/uL (4.0-11.0)
[2021-04-24 06:07] LABS: GFR 12.9
[2021-04-24 06:08] LABS: CREATININE 5.6 mg/dL (0.7-1.3); POTASSIUM 4.7 mmol/L (3.5-5.1)
[2021-04-24] MEDS: PANTOPRAZOLE 40 MG TABLET.DR. PO SCH (06:37)
[2021-04-24] MEDS: IV NORMAL SALINE 1000ML BAG 1,000 ML IV SCH (06:37)
[2021-04-24 07:00] VITALS: BP 216/98
--- NOTE | 2021-04-24 08:27 | PDOC ---
Infectious Disease Note Subjective: Subjective Patient remains on O2 by nasal cannula No fevers Feels better except for complains of swelling in both lower extremity and right upper extremity Discussed with RN Vital Signs: Vital Signs Vital Signs Date Time Temp Pulse Resp B/P (MAP) Pulse Ox O2 Delivery O2 Flow Rate FiO2 04/24/21 05:17 16 100 Room Air 3.0 04/24/21 03:16 63 178/75 04/24/21 03:03 98.1 98.1 Physical Exam: PHYSICAL EXAM GENERAL: Alert, oriented x 3 male, lying in bed comfortably, in no acute distress, HEENT: Normocephalic, atraumatic. Anicteric. NECK: Supple, no JVD. LUNGS: Clear bilaterally. No wheezing. HEART: S1, S2. ABDOMEN: Soft, nontender, nondistended, no rebound or guarding. EXTREMITIES: No edema, no cyanosis. DERMATOLOGIC: Warm, dry, no generalized rash. NEUROLOGIC: Alert and oriented x 3, grossly nonfocal. Generalized weakness. PSYCHIATRIC: Calm and cooperative. Medications: Inpatient Meds: Medications reviewed. Labs: Lab Laboratory Tests Test 04/23/21 12:27 04/23/21 12:45 04/23/21 17:11 04/23/21 20:19 Glucose (Fingerstick) 191 mg/dL (70-99) 145 mg/dL (70-99) 254 mg/dL (70-99) Sodium Level 119 mmol/L (136-145) Potassium Level 3.9 mmol/L (3.5-5.1) Chloride Level 86 mmol/L (98-107) Carbon Dioxide Level 28 mmol/L (21-32) Anion Gap 5 (6-14) Test 04/24/21 05:00 04/24/21 07:56 White Blood Count 10.8 x10^3/uL (4.0-11.0) Red Blood Count 3.55 x10^6/uL (4.30-5.70) Hemoglobin 10.2 g/dL (13.0-17.5) Hematocrit 30.2 % (39.0-53.0) Mean Corpuscular Volume 85 fL (79-100) Mean Corpuscular Hemoglobin 29 pg (25-35) Mean Corpuscular Hemoglobin Concent 34 g/dL (31-37) Red Cell Distribution Width 16.3 % (11.5-14.5) Platelet Count 286 x10^3/uL (140-400) Neutrophils (%) (Auto) 79 % (31-73) Lymphocytes (%) (Auto) 14 % (24-48) Monocytes (%) (Auto) 6 % (0-9) Eosinophils (%) (Auto) 0 % (0-3) Basophils (%) (Auto) 1 % (0-3) Neutrophils # (Auto) 8.5 x10^3/uL (1.8-7.7) Lymphocytes # (Auto) 1.5 x10^3/uL (1.0-4.8) Monocytes # (Auto) 0.7 x10^3/uL (0.0-1.1) Eosinophils # (Auto) 0.0 x10^3/uL (0.0-0.7) Basophils # (Auto) 0.1 x10^3/uL (0.0-0.2) Sodium Level 120 mmol/L (136-145) Potassium Level 4.7 mmol/L (3.5-5.1) Chloride Level 86 mmol/L (98-107) Carbon Dioxide Level 23 mmol/L (21-32) Anion Gap 11 (6-14) Blood Urea Nitrogen 58 mg/dL (8-26) Creatinine 5.6 mg/dL (0.7-1.3) Estimated GFR (Cockcroft-Gault) 12.9 Glucose Level 219 mg/dL (70-99) Calcium Level 8.0 mg/dL (8.5-10.1) Glucose (Fingerstick) 232 mg/dL (70-99) Objective: Assessment: COVID-19 infection 1. Acute on chronic hypoxic respiratory failure. 2. Leukocytosis. Could have reactive component 3. Pulmonary infiltrates more on the right side. SARS COVID rapid negative. 4. End-stage renal disease, on hemodialysis. 5. History of nausea, vomiting and diarrhea, improved. Hiccups 6. Accelerated hypertension. 7. Diabetes mellitus type 2. 8. History of prostate cancer. 9. Hyponatremia Plan: Plan of Care Continue supportive care On steroids Status post Remdesivir Monitor off antibiotics Monitor labs and cultures Discussed with nursing staff SACHI BANUELOS MD Apr 24, 2021 08:27
[2021-04-24] MEDS: DOXAZOSIN MESYLATE 4 MG TABLET. PO SCH (08:30)
[2021-04-24] MEDS: ISOSORBIDE MONONITRATE ER 30 MG TAB.ER.24H PO SCH (08:30)
[2021-04-24] MEDS: CALCITRIOL 0.25 MCG CAPSULE. PO SCH (08:30)
[2021-04-24] MEDS: CARVEDILOL 12.5 MG TABLET. PO SCH ×2 (08:31→17:54)
[2021-04-24] MEDS: SEVELAMER CARBONATE 800 MG TABLET. PO SCH ×3 (08:31→17:49)
[2021-04-24] MEDS: LIPASE/PROTEAS/AMYLAS 10/32/42 CAPSULE.DR. PO SCH (08:31)
[2021-04-24] MEDS: BACLOFEN 10 MG TABLET. PO SCH ×3 (08:31→20:23)
[2021-04-24] MEDS: ASPIRIN ENTERIC COATED 81 MG TABLET.DR. PO SCH (08:31)
[2021-04-24] MEDS: OMEGA-3 FATTY ACIDS/FISH OIL 1,000 MG CAPSULE. PO SCH (08:31)
[2021-04-24] MEDS: LACTOBACILLUS RHAMNOSUS GG 1 CAPSULE. PO SCH ×2 (08:31→20:22)
[2021-04-24] MEDS: DEXAMETHASONE SOD PHOS 4 MG/ML VIAL IVP SCH (08:32)
[2021-04-24] MEDS: INSULIN GLARGINE SYRINGE. SQ SCH (08:38)
[2021-04-24] MEDS: HEPARIN for SUB-Q USE 5,000 UNIT/ML VIAL. SQ SCH ×2 (08:39→20:25)
[2021-04-24] MEDS: INSULIN LISPRO 300 UNITS/3 ML VIAL. SQ SCH ×7 (08:39→20:25)
--- NOTE | 2021-04-24 09:03 | PDOC ---
IM PROGRESS NOTES- Subjective Subjective Hiccups are better. No complaints of dyspnea, dizziness. Objective Vitals/I&O Vital Signs Date Time Temp Pulse Resp B/P (MAP) Pulse Ox O2 Delivery O2 Flow Rate FiO2 04/24/21 08:32 60 219/98 04/24/21 07:00 98.0 18 100 Nasal Cannula 3.0 98.0 I & O 04/23/21 04/23/21 04/24/21 15:00 23:00 07:00 Intake Total 240 ml Output Total 200 ml 300 ml Balance 40 ml -300 ml Physical Exam Physical Exam General Appearance - alert and in no distress Chest - decreased breath sounds at bases Heart - S1 and S2 normal Abdomen - soft, non tender Neurological - alert and oriented Musculoskeletal - generalized weakness Extremities - edema+ Labs Laboratory Tests Test 04/23/21 12:27 04/23/21 12:45 04/23/21 17:11 04/23/21 20:19 Glucose (Fingerstick) 191 mg/dL (70-99) H 145 mg/dL (70-99) H 254 mg/dL (70-99) H Sodium Level 119 mmol/L (136-145) *L Potassium Level 3.9 mmol/L (3.5-5.1) Chloride Level 86 mmol/L (98-107) L Carbon Dioxide Level 28 mmol/L (21-32) Anion Gap 5 (6-14) L Test 04/24/21 05:00 04/24/21 07:56 White Blood Count 10.8 x10^3/uL (4.0-11.0) Red Blood Count 3.55 x10^6/uL (4.30-5.70) L Hemoglobin 10.2 g/dL (13.0-17.5) L Hematocrit 30.2 % (39.0-53.0) L Mean Corpuscular Volume 85 fL (79-100) Mean Corpuscular Hemoglobin 29 pg (25-35) Mean Corpuscular Hemoglobin Concent 34 g/dL (31-37) Red Cell Distribution Width 16.3 % (11.5-14.5) H Platelet Count 286 x10^3/uL (140-400) Neutrophils (%) (Auto) 79 % (31-73) H Lymphocytes (%) (Auto) 14 % (24-48) L Monocytes (%) (Auto) 6 % (0-9) Eosinophils (%) (Auto) 0 % (0-3) Basophils (%) (Auto) 1 % (0-3) Neutrophils # (Auto) 8.5 x10^3/uL (1.8-7.7) H Lymphocytes # (Auto) 1.5 x10^3/uL (1.0-4.8) Monocytes # (Auto) 0.7 x10^3/uL (0.0-1.1) Eosinophils # (Auto) 0.0 x10^3/uL (0.0-0.7) Basophils # (Auto) 0.1 x10^3/uL (0.0-0.2) Sodium Level 120 mmol/L (136-145) *L Potassium Level 4.7 mmol/L (3.5-5.1) Chloride Level 86 mmol/L (98-107) L Carbon Dioxide Level 23 mmol/L (21-32) Anion Gap 11 (6-14) Blood Urea Nitrogen 58 mg/dL (8-26) H Creatinine 5.6 mg/dL (0.7-1.3) H Estimated GFR (Cockcroft-Gault) 12.9 Glucose Level 219 mg/dL (70-99) H Calcium Level 8.0 mg/dL (8.5-10.1) L Glucose (Fingerstick) 232 mg/dL (70-99) H Laboratory Tests 04/24/21 05:00 Laboratory Tests 04/23/21 12:45 04/24/21 05:00 Meds Current Medications Medications (Trade) Dose Ordered Sig/Ravinder Route PRN Reason Start Time Stop Time Status Last Admin Dose Admin Baclofen (Lioresal) 5 mg TID PO 04/23/21 14:00 04/24/21 13:59 04/24/21 08:31 Assessment Assessment 1. Pneumonia, bilateral COVID-19 pneumonia. 2. Exacerbation of chronic obstructive pulmonary disease. 3. Acute on chronic hypoxic respiratory failure. 4. End-stage renal disease, on hemodialysis Saturday, Saturday, Saturday. 5. Hiccups. 6. Gastroesophageal reflux disease. 7. Accelerated hypertension. 8. 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 9. Hyperlipidemia. 10. Coronary artery disease with history of stent placement. 11. Chronic pancreatitis. 12. Anemia. 13. History of myocardial infarction. 14. Surgery for removal of salivary gland. 15. History of prostate cancer, treated with radiation therapy. 16. Physical deconditioning. 17. Osteoarthritis. 18. Chronic back pain. PLAN:CT scan chest noted. NA 118 today ,yesterday 129, pt drinking free water. fluid restriction.renal taking care of low NA no iv access,needs picc line or central line 1. Pneumonia. COVID-19 PCR test is positive. Has COVID-[address] Gray. Start IV Rocephin and Zithromax that were given yesterday. I will consult Dr. Gretel Aguilar for Infectious Disease evaluation because of his multiple medical problems. Started on IV remdesivir and IV dexamethasone. Discussed with Dr. Gray. 2. Exacerbation of COPD. 3. Acute on chronic hypoxic respiratory failure. Continue oxygen by nasal cannula. 4. End-stage renal disease, on hemodialysis. Consult Dr. Riddle for Nephrology evaluation and management. He will get hemodialysis today. 5. Persistent hiccups. Improving. Continue home medications as the patient also has gastroesophageal reflux disease. Pantoprazole. Consult Dr. Santo for GI evaluation and management. Increase promethazine. 6. COVID-19 rapid antigen test was negative in the ER. However COVID-19 PCR test is positive. 7. Diabetes mellitus not controlled due to infection as well as IV steroids. Restart Lantus and increase scheduled insulin and sliding scale insulin. 8. Accelerated hypertension. BP remains elevated even while on multiple medications. Add IV hydralazine 10 mg as needed every 4 hours. I have ordered Catapres patch today. Discussed with patient. 9. Hyponatremia. Sodium 120, it was 118 yesterday. Patient is getting IV normal saline. He likely is drinking a lot of free water. Advised 1500 cc fluid restriction. He is retaining a lot of fluid. He will get dialysis today. He will have to go to a special dialysis unit as outpatient for Covid patients. For details, please refer to the orders. Prognosis of this patient is poor due to his multiple medical problems. Started on Catapres patch yesterday. Plan Plan For more details regarding further plans, please refer to the orders. Justifications for Admission Other Justification TRINA ALDANA MD Apr 24, 2021 09:03
--- NOTE | 2021-04-24 10:42 | PDOC ---
PULMONARY PROGRESS NOTES DATE: 04/24/21 TIME: 10:42 Subjective Patient feels less short of air. On 2 L of oxygen Vitals Vital Signs Date Time Temp Pulse Resp B/P (MAP) Pulse Ox O2 Delivery O2 Flow Rate FiO2 04/24/21 08:32 60 219/98 04/24/21 07:00 98.0 18 100 Nasal Cannula 3.0 98.0 General: Alert, No acute distress Lungs: Clear Cardiovascular: S1 Abdomen: Soft Extremities: No Edema Labs Laboratory Tests Test 04/22/21 12:01 04/22/21 17:04 04/22/21 20:30 04/23/21 05:45 Glucose (Fingerstick) 197 mg/dL (70-99) 258 mg/dL (70-99) 286 mg/dL (70-99) Sodium Level 118 mmol/L (136-145) Potassium Level 4.5 mmol/L (3.5-5.1) Chloride Level 84 mmol/L (98-107) Carbon Dioxide Level 25 mmol/L (21-32) Anion Gap 9 (6-14) Blood Urea Nitrogen 49 mg/dL (8-26) Creatinine 5.2 mg/dL (0.7-1.3) Estimated GFR (Cockcroft-Gault) 14.1 Glucose Level 375 mg/dL (70-99) Calcium Level 8.1 mg/dL (8.5-10.1) Test 04/23/21 12:27 04/23/21 12:45 04/23/21 17:11 04/23/21 20:19 Glucose (Fingerstick) 191 mg/dL (70-99) 145 mg/dL (70-99) 254 mg/dL (70-99) Sodium Level 119 mmol/L (136-145) Potassium Level 3.9 mmol/L (3.5-5.1) Chloride Level 86 mmol/L (98-107) Carbon Dioxide Level 28 mmol/L (21-32) Anion Gap 5 (6-14) Test 04/24/21 05:00 04/24/21 07:56 White Blood Count 10.8 x10^3/uL (4.0-11.0) Red Blood Count 3.55 x10^6/uL (4.30-5.70) Hemoglobin 10.2 g/dL (13.0-17.5) Hematocrit 30.2 % (39.0-53.0) Mean Corpuscular Volume 85 fL (79-100) Mean Corpuscular Hemoglobin 29 pg (25-35) Mean Corpuscular Hemoglobin Concent 34 g/dL (31-37) Red Cell Distribution Width 16.3 % (11.5-14.5) Platelet Count 286 x10^3/uL (140-400) Neutrophils (%) (Auto) 79 % (31-73) Lymphocytes (%) (Auto) 14 % (24-48) Monocytes (%) (Auto) 6 % (0-9) Eosinophils (%) (Auto) 0 % (0-3) Basophils (%) (Auto) 1 % (0-3) Neutrophils # (Auto) 8.5 x10^3/uL (1.8-7.7) Lymphocytes # (Auto) 1.5 x10^3/uL (1.0-4.8) Monocytes # (Auto) 0.7 x10^3/uL (0.0-1.1) Eosinophils # (Auto) 0.0 x10^3/uL (0.0-0.7) Basophils # (Auto) 0.1 x10^3/uL (0.0-0.2) Sodium Level 120 mmol/L (136-145) Potassium Level 4.7 mmol/L (3.5-5.1) Chloride Level 86 mmol/L (98-107) Carbon Dioxide Level 23 mmol/L (21-32) Anion Gap 11 (6-14) Blood Urea Nitrogen 58 mg/dL (8-26) Creatinine 5.6 mg/dL (0.7-1.3) Estimated GFR (Cockcroft-Gault) 12.9 Glucose Level 219 mg/dL (70-99) Calcium Level 8.0 mg/dL (8.5-10.1) Glucose (Fingerstick) 232 mg/dL (70-99) Laboratory Tests Test 04/23/21 12:27 04/23/21 12:45 04/23/21 17:11 04/23/21 20:19 Glucose (Fingerstick) 191 mg/dL (70-99) 145 mg/dL (70-99) 254 mg/dL (70-99) Sodium Level 119 mmol/L (136-145) Potassium Level 3.9 mmol/L (3.5-5.1) Chloride Level 86 mmol/L (98-107) Carbon Dioxide Level 28 mmol/L (21-32) Anion Gap 5 (6-14) Test 04/24/21 05:00 04/24/21 07:56 White Blood Count 10.8 x10^3/uL (4.0-11.0) Red Blood Count 3.55 x10^6/uL (4.30-5.70) Hemoglobin 10.2 g/dL (13.0-17.5) Hematocrit 30.2 % (39.0-53.0) Mean Corpuscular Volume 85 fL (79-100) Mean Corpuscular Hemoglobin 29 pg (25-35) Mean Corpuscular Hemoglobin Concent 34 g/dL (31-37) Red Cell Distribution Width 16.3 % (11.5-14.5) Platelet Count 286 x10^3/uL (140-400) Neutrophils (%) (Auto) 79 % (31-73) Lymphocytes (%) (Auto) 14 % (24-48) Monocytes (%) (Auto) 6 % (0-9) Eosinophils (%) (Auto) 0 % (0-3) Basophils (%) (Auto) 1 % (0-3) Neutrophils # (Auto) 8.5 x10^3/uL (1.8-7.7) Lymphocytes # (Auto) 1.5 x10^3/uL (1.0-4.8) Monocytes # (Auto) 0.7 x10^3/uL (0.0-1.1) Eosinophils # (Auto) 0.0 x10^3/uL (0.0-0.7) Basophils # (Auto) 0.1 x10^3/uL (0.0-0.2) Sodium Level 120 mmol/L (136-145) Potassium Level 4.7 mmol/L (3.5-5.1) Chloride Level 86 mmol/L (98-107) Carbon Dioxide Level 23 mmol/L (21-32) Anion Gap 11 (6-14) Blood Urea Nitrogen 58 mg/dL (8-26) Creatinine 5.6 mg/dL (0.7-1.3) Estimated GFR (Cockcroft-Gault) 12.9 Glucose Level 219 mg/dL (70-99) Calcium Level 8.0 mg/dL (8.5-10.1) Glucose (Fingerstick) 232 mg/dL (70-99) Medications Active Scripts Medications Dose Route/Sig Max Daily Dose Days Date Category Tizanidine Hcl 4 Mg Tablet 1 Tab PO QHS 04/18/21 Reported Zenpep 10,000 Units Capsule (Lipase/Protease/Amylase) 1 Each Capsule.dr 1 Each PO DAILY 04/18/21 Reported Doxazosin Mesylate 4 Mg Tablet 1 Tab PO DAILY 04/18/21 Reported Admelog (Insulin Lispro) 100 Unit/1 Ml Vial 6 Units SQ TIDWMEALS 30 12/17/20 Rx Lantus (Insulin Glargine,Hum.rec.anlog) 100 Unit/1 Ml Vial 14 Unit SQ DAILY10 30 12/17/20 Rx Trazodone Hcl 100 Mg Tablet 1 Tab PO QHS 12/16/20 Reported Calcitriol 0.25 Mcg Capsule 0.25 Mcg PO DAILY 30 07/04/20 Rx Renvela (Sevelamer Carbonate) 800 Mg Tablet 800 Mg PO TIDWMEALS 30 07/04/20 Rx Hydrocodone-Acetamin 7.5-325 (Hydrocodone/Acetaminophen) 1 Each Tablet 7.5-325 Mg PO Q6HRS PRN 07/01/20 Reported Mirtazapine 30 Mg Tab.rapdis 1 Tab PO QHS 30 06/29/20 Reported Fish Oil 1,000 mg Softgel ([place]-3/Dha/Epa/Fish Oil) 1,000 Mg Capsule 1,000 Mg PO DAILY 06/29/20 Reported Carvedilol 25 Mg Tablet 25 Mg PO BIDWMEALS 06/29/20 Reported Hydralazine Hcl 100 Mg Tablet 1 Tab PO TID 06/29/20 Reported Amlodipine Besylate 10 Mg Tablet 10 Mg PO DAILY 30 09/13/19 Rx Isosorbide Mononitrate Er (Isosorbide Mononitrate) 30 Mg Tab.er.24h 60 Mg PO DAILY 30 09/13/19 Rx Aspir 81 (Aspirin) 81 Mg Tablet.dr 1 Tab PO DAILY 08/26/17 Reported Atorvastatin Calcium 80 Mg Tablet 1 Tab PO DAILY 08/26/17 Reported Impression . IMPRESSION: 1. Acute hypoxic respiratory failure, due to COVID-19 viral pneumonia/mild CHF 2. Possible aspiration pneumonitis 3. End-stage renal disease, on hemodialysis. 4. Hyponatremia. 5. 30 years of tobaccoism, likely underlying chronic obstructive pulmonary disease. Plan . Updated 04/24 Continue current dexamethasone Remdesivir Antibiotics Follow renal input 1. Dexamethasone per protocol 2. remdesivir per protocol. 3. Continue empiric antibiotics. 4. procalcitonin level. 1.5 5. Close monitoring of blood pressure per PCP. 6. Heparin for DVT prophylaxis. 7. Smoking cessation counseling provided. 8. Follow renal recommendation. 9. Discussed with the patient and RN. EMMA BURGESS MD Apr 24, 2021 10:42
[2021-04-24 11:00] VITALS: BP 169/76
--- NOTE | 2021-04-24 11:06 | PDOC ---
DATE OF SERVICE DATE: 04/24/21 TIME: 11:01 SUBJECTIVE ROS Stable OBJECTIVE Vital Signs Vital Signs Date Time Temp Pulse Resp B/P (MAP) Pulse Ox O2 Delivery O2 Flow Rate FiO2 04/24/21 08:32 60 219/98 04/24/21 07:00 98.0 18 100 Nasal Cannula 3.0 98.0 I & 0 Intake and Output 04/24/21 07:00 Intake Total 240 ml Output Total 500 ml Balance -260 ml Intake Oral 240 ml Output Urine Total 500 ml PHYSICAL EXAM Physical Exam GENERAL: NAD HEENT: Normocephalic, atraumatic. Anicteric. NECK: Supple LUNGS: Clear bilaterally. Non labored HEART: S1, S2. ABDOMEN: Soft, nontender, nondistended, no rebound or guarding. EXTREMITIES: No edema, no cyanosis. DERMATOLOGIC: Warm, dry, no generalized rash. NEUROLOGIC: Alert and oriented x 3, grossly no focal deficit Generalized weakness. PSYCHIATRIC: Calm and cooperative. No ruth, No CVA or SP tenderness DIAGNOSIS/ASSESSMENT Assessment & Plan ESRD on HD MWF under Dr Riddle , .Dialysis today, UF 3-4 as tolerated , discussed treatment plan with [facility] Undergoing Renal Tx eval at HypoNatremia- ? Chronic ? noted worsening . 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 DC IV NS HyperKalemia- resolved Acute on chronic hypoxic respiratory failure on 3 lts o2 by [place] .CoVid Positive Management per Pulm/ID Hiccups- per GI COVID 19 Pneumonia Accelerated hypertension Antihypertensives,. Renal Doppler in Aug 2019, No e/o JOSELYN .On multiple antihypertensives, Clonidine patch since Sat as well . UF -4 lts today Diabetes mellitus type 2. History of prostate cancer.s/p Radiation treatment Anemia - stable , No indication for LUCHO HX of CAD and [place] COMMENT/RELEVANT DATA Meds Current Medications Medications (Trade) Dose Ordered Sig/Ravinder Start Time Stop Time Status Last Admin Dose Admin Acetaminophen (Tylenol) 650 mg PRN Q6HRS PRN 04/18/21 08:45 Acetaminophen/ Hydrocodone Bitart (Lortab 7.5/325) 1 tab PRN Q6HRS PRN 04/18/21 08:45 04/24/21 04:47 1 TAB Albumin Human 100 ml @ 100 mls/hr 1X PRN PRN 04/19/21 13:30 04/19/21 19:29 DC Albuterol Sulfate (Ventolin Neb Soln) 2.5 mg PRN Q4HRS PRN 04/18/21 10:30 Albuterol/ Ipratropium (Duoneb) 3 ml RTQID 04/18/21 12:00 04/18/21 12:01 DC Amlodipine Besylate (Norvasc) 10 mg DAILY 04/18/21 09:00 04/24/21 08:31 10 MG Amylase/Lipase/ Protease (Zenpep 10,000) 1 cap DAILYWBKFT 04/18/21 09:00 04/24/21 08:31 1 CAP Aspirin (Aspirin Chewable) 162 mg 1X ONCE 04/17/21 23:00 04/17/21 23:01 DC 04/17/21 22:32 162 MG Aspirin (Ecotrin) 81 mg DAILY 04/18/21 09:00 04/24/21 08:31 81 MG Atorvastatin Calcium (Lipitor) 80 mg QHS 04/18/21 21:00 04/23/21 20:29 80 MG Azithromycin (Zithromax) 250 mg DAILY 04/18/21 12:00 04/19/21 09:20 DC 04/19/21 08:43 250 MG Baclofen (Lioresal) 5 mg TID 04/23/21 14:00 04/24/21 13:59 04/24/21 08:31 5 MG Calcitriol (Rocaltrol) 0.25 mcg DAILY 04/18/21 09:00 04/24/21 08:30 0.25 MCG Carvedilol (Coreg) 25 mg BIDWMEALS 04/18/21 09:00 04/24/21 08:31 25 MG Ceftriaxone Sodium (Rocephin) 1 gm 1X ONCE 04/17/21 23:00 04/17/21 23:01 DC 04/17/21 23:43 1 GM Clonidine HCl (Catapres Tts-1) 1 patch Sa@0900 04/22/21 11:30 04/22/21 12:28 1 PATCH Clonidine HCl (Catapres) 0.1 mg PRN Q8HRS PRN 04/22/21 21:00 04/23/21 17:50 0.1 MG Dexamethasone Sodium Phosphate (Decadron) 6 mg DAILY 04/18/21 16:00 04/24/21 08:32 6 MG Doxazosin Mesylate (Cardura) 4 mg DAILY 04/18/21 09:00 04/24/21 08:30 4 MG Fish Oil (Fish Oil) 1,000 mg DAILY 04/18/21 10:00 04/24/21 08:31 1,000 MG Heparin Sodium (Porcine) (Heparin Sodium) 5,000 unit Q12HR 04/18/21 10:00 04/24/21 08:39 5,000 UNIT Hydralazine HCl (Apresoline Inj) 10 mg PRN Q4HRS PRN 04/19/21 09:15 04/24/21 03:16 10 MG Hydralazine HCl (Apresoline) 100 mg TID 04/18/21 10:00 04/24/21 08:32 100 MG Info (PHARMACY MONITORING -- do not chart) 1 each PRN DAILY PRN 04/19/21 13:30 UNV Insulin Glargine (Lantus Syringe) 24 unit DAILY 04/21/21 09:00 04/24/21 08:38 24 UNIT Insulin Human Lispro (HumaLOG) 0-8 UNITS QIDACHS 04/22/21 21:00 04/24/21 08:40 3 UNITS Isosorbide Mononitrate (Imdur) 60 mg DAILY 04/18/21 09:00 04/24/21 08:30 60 MG Lactobacillus Rhamnosus (Culturelle) 1 cap BID 04/18/21 21:00 04/24/21 08:31 1 CAP Lidocaine HCl (Lidocaine Pf 2% Vial) 5 ml STK-MED ONCE 04/23/21 11:06 04/23/21 11:07 DC Loperamide HCl (Imodium) 2 mg PRN BID PRN 04/21/21 09:45 04/22/21 08:46 2 MG Midazolam HCl (Versed) 2 mg STK-MED ONCE 04/23/21 11:03 04/23/21 11:03 DC Mirtazapine (Remeron) 30 mg QHS 04/18/21 21:00 04/23/21 15:36 DC 04/22/21 21:36 30 MG Nitroglycerin (Nitrostat) 0.4 mg PRN Q5MIN PRN 04/17/21 22:30 04/17/21 22:32 0.4 MG Pantoprazole Sodium (Protonix) 40 mg DAILYAC 04/18/21 11:30 04/24/21 06:37 40 MG Piperacillin Sod/ Tazobactam Sod 2.25 gm/Sodium Chloride 50 ml @ 100 mls/hr Q8HRS 04/18/21 14:00 04/19/21 09:19 DC 04/19/21 05:44 100 MLS/HR Prochlorperazine Maleate (Compazine) 5 mg PRN Q6HRS PRN 04/18/21 13:45 04/23/21 20:34 5 MG Promethazine HCl (Phenergan) 50 mg PRN Q6HRS PRN 04/20/21 10:45 04/23/21 08:42 37.5 MG Remdesivir 100 mg/ Sodium Chloride 230 ml @ 460 mls/hr Q24H 04/19/21 15:00 04/22/21 15:29 DC 04/22/21 15:00 460 MLS/HR Remdesivir 200 mg/ Sodium Chloride 210 ml @ 210 mls/hr 1X ONCE 04/18/21 15:00 04/18/21 15:59 DC 04/18/21 15:38 210 MLS/HR Sevelamer Carbonate (Renvela) 800 mg TIDWMEALS 04/18/21 12:00 04/24/21 08:31 800 MG Sodium Chloride 1,000 ml @ 75 mls/hr [id number] 04/23/21 09:00 04/24/21 06:37 75 MLS/HR Tizanidine HCl (Zanaflex) 4 mg QHS 04/18/21 21:00 04/23/21 20:30 4 MG Trazodone HCl (Desyrel) 100 mg QHS 04/18/21 21:00 04/23/21 20:29 100 MG Lab Laboratory Tests Test 04/23/21 12:27 04/23/21 12:45 04/23/21 17:11 04/23/21 20:19 Glucose (Fingerstick) 191 mg/dL (70-99) 145 mg/dL (70-99) 254 mg/dL (70-99) Sodium Level 119 mmol/L (136-145) Potassium Level 3.9 mmol/L (3.5-5.1) Chloride Level 86 mmol/L (98-107) Carbon Dioxide Level 28 mmol/L (21-32) Anion Gap 5 (6-14) Test 04/24/21 05:00 04/24/21 07:56 White Blood Count 10.8 x10^3/uL (4.0-11.0) Red Blood Count 3.55 x10^6/uL (4.30-5.70) Hemoglobin 10.2 g/dL (13.0-17.5) Hematocrit 30.2 % (39.0-53.0) Mean Corpuscular Volume 85 fL (79-100) Mean Corpuscular Hemoglobin 29 pg (25-35) Mean Corpuscular Hemoglobin Concent 34 g/dL (31-37) Red Cell Distribution Width 16.3 % (11.5-14.5) Platelet Count 286 x10^3/uL (140-400) Neutrophils (%) (Auto) 79 % (31-73) Lymphocytes (%) (Auto) 14 % (24-48) Monocytes (%) (Auto) 6 % (0-9) Eosinophils (%) (Auto) 0 % (0-3) Basophils (%) (Auto) 1 % (0-3) Neutrophils # (Auto) 8.5 x10^3/uL (1.8-7.7) Lymphocytes # (Auto) 1.5 x10^3/uL (1.0-4.8) Monocytes # (Auto) 0.7 x10^3/uL (0.0-1.1) Eosinophils # (Auto) 0.0 x10^3/uL (0.0-0.7) Basophils # (Auto) 0.1 x10^3/uL (0.0-0.2) Sodium Level 120 mmol/L (136-145) Potassium Level 4.7 mmol/L (3.5-5.1) Chloride Level 86 mmol/L (98-107) Carbon Dioxide Level 23 mmol/L (21-32) Anion Gap 11 (6-14) Blood Urea Nitrogen 58 mg/dL (8-26) Creatinine 5.6 mg/dL (0.7-1.3) Estimated GFR (Cockcroft-Gault) 12.9 Glucose Level 219 mg/dL (70-99) Calcium Level 8.0 mg/dL (8.5-10.1) Glucose (Fingerstick) 232 mg/dL (70-99) Results All relevant outside records, renal labs, imaging studies, telemetry/EKG's were reviewed. Justicifation of Admission Dx: Justifications for Admission: Justification of Admission Dx: N/A CARLO CHAUHAN MD Apr 24, 2021 11:06
--- NOTE | 2021-04-24 11:23 | PDOC ---
Date of Service: DATE: 04/24/21 TIME: 11:19 Objective: Objective: D/w nurse - hiccups better since starting baclofen yesterday, also received compazine last night for nausea, stooling (no diarrhea), has c/o some distention. On fluid restriction, to dialyze today. Vital Signs: Vital Signs Date Time Temp Pulse Resp B/P (MAP) Pulse Ox O2 Delivery O2 Flow Rate FiO2 04/24/21 08:32 60 219/98 04/24/21 08:00 Room Air 04/24/21 07:00 98.0 18 100 3.0 98.0 Labs: Laboratory Tests Test 04/23/21 12:27 04/23/21 12:45 04/23/21 17:11 04/23/21 20:19 Glucose (Fingerstick) 191 mg/dL 145 mg/dL 254 mg/dL Sodium Level 119 mmol/L Potassium Level 3.9 mmol/L Chloride Level 86 mmol/L Carbon Dioxide Level 28 mmol/L Anion Gap 5 Test 04/24/21 05:00 04/24/21 07:56 White Blood Count 10.8 x10^3/uL Red Blood Count 3.55 x10^6/uL Hemoglobin 10.2 g/dL Hematocrit 30.2 % Mean Corpuscular Volume 85 fL Mean Corpuscular Hemoglobin 29 pg Mean Corpuscular Hemoglobin Concent 34 g/dL Red Cell Distribution Width 16.3 % Platelet Count 286 x10^3/uL Neutrophils (%) (Auto) 79 % Lymphocytes (%) (Auto) 14 % Monocytes (%) (Auto) 6 % Eosinophils (%) (Auto) 0 % Basophils (%) (Auto) 1 % Neutrophils # (Auto) 8.5 x10^3/uL Lymphocytes # (Auto) 1.5 x10^3/uL Monocytes # (Auto) 0.7 x10^3/uL Eosinophils # (Auto) 0.0 x10^3/uL Basophils # (Auto) 0.1 x10^3/uL Sodium Level 120 mmol/L Potassium Level 4.7 mmol/L Chloride Level 86 mmol/L Carbon Dioxide Level 23 mmol/L Anion Gap 11 Blood Urea Nitrogen 58 mg/dL Creatinine 5.6 mg/dL Estimated GFR (Cockcroft-Gault) 12.9 Glucose Level 219 mg/dL Calcium Level 8.0 mg/dL Glucose (Fingerstick) 232 mg/dL BLOOD CULTURE Final NO GROWTH AFTER 5 DAYS Imaging: CXR 04/23 IMPRESSION: * Right-sided vascular catheter with tip projecting over SVC. * Mild interstitial and groundglass opacities which could be from the patient's previously identified multifocal infiltrate PE: GEN: in COVID isolation, exam deferred A/P: COVID pneumonia Hiccups H/o GERD, chronic pancreatitis HTN, ESRD, hyponatremia -- Hiccups better - continue support. Justicifation of Admission Dx: Justifications for Admission: Justification of Admission Dx: N/A KIMMY MARAVILLA Apr 24, 2021 11:23
[2021-04-24] MEDS ORDERED: DIALYSIS PATIENT. MC PRN ×2 (12:00)
[2021-04-24] MEDS ORDERED: 0.9 % SODIUM CHLORIDE 10 ML DISP.SYRIN. IV PRN ×2 (12:00)
[2021-04-24] MEDS ORDERED: ALBUMIN HUMAN 25% 200 ML IV PRN (12:00)
[2021-04-24] MEDS ORDERED: IV NORMAL SALINE 1000ML BAG 1,000 ML IV PRN ×2 (12:00)
--- NOTE | 2021-04-24 15:12 | NUR ---
ANAIS following. Discussed with RN, ANAIS contacted pt's dialysis clinic to determine if the switch to the clinic treating COVID positive has been done yet or not. ANAIS spoke with [place] at [facility] - pt can return to his regular dialysis clinic on Saturday. RN notified. ANAIS will continue to follow.
[2021-04-24] MEDS ORDERED: tiZANidine 4 MG TABLET. PO PRN (15:30)
[2021-04-24 19:00] VITALS: BP 174/79
[2021-04-24] MEDS: ATORVASTATIN CALCIUM 40 MG TABLET. PO SCH (20:22)
[2021-04-24] MEDS: traZODone 100 MG TABLET. PO SCH (20:22)
[2021-04-24 23:26] VITALS: BP 162/74
[2021-04-25] MEDS: HYDROcodone/APAP 7.5/325MG 1 TAB TABLET PO PRN (02:57)
[2021-04-25 03:29] VITALS: BP 188/81
[2021-04-25] MEDS: hydrALAZINE 20 MG/ML VIAL. IVP PRN (04:59)
[2021-04-25 05:57] LABS: CALCIUM 7.9 mg/dL (8.5-10.1); CREATININE 4.2 mg/dL (0.7-1.3)
[2021-04-25 07:00] VITALS: BP 188/114
--- NOTE | 2021-04-25 08:17 | PDOC ---
Infectious Disease Note Subjective: Subjective Patient feels better Patient remains on O2 by nasal cannula No fevers Discussed with RN Vital Signs: Vital Signs Vital Signs Date Time Temp Pulse Resp B/P (MAP) Pulse Ox O2 Delivery O2 Flow Rate FiO2 04/25/21 04:59 61 174/81 04/25/21 03:29 98.5 18 95 Nasal Cannula 3.0 98.5 Physical Exam: PHYSICAL EXAM GENERAL: Alert, oriented x 3 male, lying in bed comfortably, in no acute distress, HEENT: Normocephalic, atraumatic. Anicteric. NECK: Supple, no JVD. LUNGS: Clear bilaterally. No wheezing. HEART: S1, S2. ABDOMEN: Soft, nontender, nondistended, no rebound or guarding. EXTREMITIES: No edema, no cyanosis. DERMATOLOGIC: Warm, dry, no generalized rash. NEUROLOGIC: Alert and oriented x 3, grossly nonfocal. Generalized weakness. PSYCHIATRIC: Calm and cooperative. Medications: Inpatient Meds: Medications reviewed. Labs: Lab Laboratory Tests Test 04/24/21 11:52 04/24/21 17:39 04/24/21 19:46 04/25/21 05:40 Glucose (Fingerstick) 229 mg/dL (70-99) 133 mg/dL (70-99) 212 mg/dL (70-99) Sodium Level 128 mmol/L (136-145) Potassium Level 5.0 mmol/L (3.5-5.1) Chloride Level 94 mmol/L (98-107) Carbon Dioxide Level 29 mmol/L (21-32) Anion Gap 5 (6-14) Blood Urea Nitrogen 41 mg/dL (8-26) Creatinine 4.2 mg/dL (0.7-1.3) Estimated GFR (Cockcroft-Gault) 18.0 Glucose Level 291 mg/dL (70-99) Calcium Level 7.9 mg/dL (8.5-10.1) Test 04/25/21 08:06 Glucose (Fingerstick) 241 mg/dL (70-99) Objective: Assessment: COVID-19 infection 1. Acute on chronic hypoxic respiratory failure. 2. Leukocytosis. Could have reactive component 3. Pulmonary infiltrates more on the right side. SARS COVID rapid negative. 4. End-stage renal disease, on hemodialysis. 5. History of nausea, vomiting and diarrhea, improved. Hiccups 6. Accelerated hypertension. 7. Diabetes mellitus type 2. 8. History of prostate cancer. 9. Hyponatremia Plan: Plan of Care Continue supportive care On steroids Status post Remdesivir Monitor off antibiotics We will sign off Call us with any questions Discussed with nursing staff SACHI BANUELOS MD Apr 25, 2021 08:17
[2021-04-25] MEDS: LIPASE/PROTEAS/AMYLAS 10/32/42 CAPSULE.DR. PO SCH (08:40)
[2021-04-25] MEDS: LACTOBACILLUS RHAMNOSUS GG 1 CAPSULE. PO SCH (08:41)
[2021-04-25] MEDS: CALCITRIOL 0.25 MCG CAPSULE. PO SCH (08:41)
[2021-04-25] MEDS: ISOSORBIDE MONONITRATE ER 30 MG TAB.ER.24H PO SCH (08:41)
[2021-04-25] MEDS: PANTOPRAZOLE 40 MG TABLET.DR. PO SCH (08:42)
[2021-04-25] MEDS: SEVELAMER CARBONATE 800 MG TABLET. PO SCH ×2 (08:42→12:10)
[2021-04-25] MEDS: BACLOFEN 10 MG TABLET. PO SCH ×2 (08:42→14:05)
[2021-04-25] MEDS: OMEGA-3 FATTY ACIDS/FISH OIL 1,000 MG CAPSULE. PO SCH (08:42)
[2021-04-25] MEDS: ASPIRIN ENTERIC COATED 81 MG TABLET.DR. PO SCH (08:42)
[2021-04-25] MEDS: DOXAZOSIN MESYLATE 4 MG TABLET. PO SCH (08:43)
[2021-04-25] MEDS: CARVEDILOL 12.5 MG TABLET. PO SCH (08:43)
[2021-04-25] MEDS: DEXAMETHASONE SOD PHOS 4 MG/ML VIAL IVP SCH (08:44)
--- NOTE | 2021-04-25 08:47 | PDOC ---
PULMONARY PROGRESS NOTES DATE: 04/25/21 TIME: 08:47 Subjective No new complaint patient feels less short of air. On 2 L of oxygen Vitals Vital Signs Date Time Temp Pulse Resp B/P (MAP) Pulse Ox O2 Delivery O2 Flow Rate FiO2 04/25/21 04:59 61 174/81 04/25/21 03:29 98.5 18 95 Nasal Cannula 3.0 98.5 General: Alert, No acute distress Lungs: Clear Cardiovascular: S1 Abdomen: Soft Extremities: No Edema Labs Laboratory Tests Test 04/23/21 12:27 04/23/21 12:45 04/23/21 17:11 04/23/21 20:19 Glucose (Fingerstick) 191 mg/dL (70-99) 145 mg/dL (70-99) 254 mg/dL (70-99) Sodium Level 119 mmol/L (136-145) Potassium Level 3.9 mmol/L (3.5-5.1) Chloride Level 86 mmol/L (98-107) Carbon Dioxide Level 28 mmol/L (21-32) Anion Gap 5 (6-14) Test 04/24/21 05:00 04/24/21 07:56 04/24/21 11:52 04/24/21 17:39 White Blood Count 10.8 x10^3/uL (4.0-11.0) Red Blood Count 3.55 x10^6/uL (4.30-5.70) Hemoglobin 10.2 g/dL (13.0-17.5) Hematocrit 30.2 % (39.0-53.0) Mean Corpuscular Volume 85 fL (79-100) Mean Corpuscular Hemoglobin 29 pg (25-35) Mean Corpuscular Hemoglobin Concent 34 g/dL (31-37) Red Cell Distribution Width 16.3 % (11.5-14.5) Platelet Count 286 x10^3/uL (140-400) Neutrophils (%) (Auto) 79 % (31-73) Lymphocytes (%) (Auto) 14 % (24-48) Monocytes (%) (Auto) 6 % (0-9) Eosinophils (%) (Auto) 0 % (0-3) Basophils (%) (Auto) 1 % (0-3) Neutrophils # (Auto) 8.5 x10^3/uL (1.8-7.7) Lymphocytes # (Auto) 1.5 x10^3/uL (1.0-4.8) Monocytes # (Auto) 0.7 x10^3/uL (0.0-1.1) Eosinophils # (Auto) 0.0 x10^3/uL (0.0-0.7) Basophils # (Auto) 0.1 x10^3/uL (0.0-0.2) Sodium Level 120 mmol/L (136-145) Potassium Level 4.7 mmol/L (3.5-5.1) Chloride Level 86 mmol/L (98-107) Carbon Dioxide Level 23 mmol/L (21-32) Anion Gap 11 (6-14) Blood Urea Nitrogen 58 mg/dL (8-26) Creatinine 5.6 mg/dL (0.7-1.3) Estimated GFR (Cockcroft-Gault) 12.9 Glucose Level 219 mg/dL (70-99) Calcium Level 8.0 mg/dL (8.5-10.1) Glucose (Fingerstick) 232 mg/dL (70-99) 229 mg/dL (70-99) 133 mg/dL (70-99) Test 04/24/21 19:46 04/25/21 05:40 04/25/21 08:06 Glucose (Fingerstick) 212 mg/dL (70-99) 241 mg/dL (70-99) Sodium Level 128 mmol/L (136-145) Potassium Level 5.0 mmol/L (3.5-5.1) Chloride Level 94 mmol/L (98-107) Carbon Dioxide Level 29 mmol/L (21-32) Anion Gap 5 (6-14) Blood Urea Nitrogen 41 mg/dL (8-26) Creatinine 4.2 mg/dL (0.7-1.3) Estimated GFR (Cockcroft-Gault) 18.0 Glucose Level 291 mg/dL (70-99) Calcium Level 7.9 mg/dL (8.5-10.1) Laboratory Tests Test 04/24/21 11:52 04/24/21 17:39 04/24/21 19:46 04/25/21 05:40 Glucose (Fingerstick) 229 mg/dL (70-99) 133 mg/dL (70-99) 212 mg/dL (70-99) Sodium Level 128 mmol/L (136-145) Potassium Level 5.0 mmol/L (3.5-5.1) Chloride Level 94 mmol/L (98-107) Carbon Dioxide Level 29 mmol/L (21-32) Anion Gap 5 (6-14) Blood Urea Nitrogen 41 mg/dL (8-26) Creatinine 4.2 mg/dL (0.7-1.3) Estimated GFR (Cockcroft-Gault) 18.0 Glucose Level 291 mg/dL (70-99) Calcium Level 7.9 mg/dL (8.5-10.1) Test 04/25/21 08:06 Glucose (Fingerstick) 241 mg/dL (70-99) Medications Active Scripts Medications Dose Route/Sig Max Daily Dose Days Date Category Tizanidine Hcl 4 Mg Tablet 1 Tab PO QHS 04/18/21 Reported Erinn Sterling 10,000 Units Capsule (Lipase/Protease/Amylase) 1 Each Capsule.dr 1 Each PO DAILY 04/18/21 Reported Doxazosin Mesylate 4 Mg Tablet 1 Tab PO DAILY 04/18/21 Reported Admelog (Insulin Lispro) 100 Unit/1 Ml Vial 6 Units SQ TIDWMEALS 30 12/17/20 Rx Lantus (Insulin Glargine,Hum.rec.anlog) 100 Unit/1 Ml Vial 14 Unit SQ DAILY10 12/17/20 Rx Trazodone Hcl 100 Mg Tablet 1 Tab PO QHS 12/16/20 Reported Calcitriol 0.25 Mcg Capsule 0.25 Mcg PO DAILY 30 07/04/20 Rx Renvela (Sevelamer Carbonate) 800 Mg Tablet 800 Mg PO TIDWMEALS 30 07/04/20 Rx Hydrocodone-Acetamin 7.5-325 (Hydrocodone/Acetaminophen) 1 Each Tablet 7.5-325 Mg PO Q6HRS PRN 07/01/20 Reported Mirtazapine 30 Mg Tab.rapdis 1 Tab PO QHS 30 06/29/20 Reported Fish Oil 1,000 mg Softgel ([place]-3/Dha/Epa/Fish Oil) 1,000 Mg Capsule 1,000 Mg PO DAILY 06/29/20 Reported Carvedilol 25 Mg Tablet 25 Mg PO BIDWMEALS 06/29/20 Reported Hydralazine Hcl 100 Mg Tablet 1 Tab PO TID 06/29/20 Reported Amlodipine Besylate 10 Mg Tablet 10 Mg PO DAILY 30 09/13/19 Rx Isosorbide Mononitrate Er (Isosorbide Mononitrate) 30 Mg Tab.er.24h 60 Mg PO DAILY 30 09/13/19 Rx Aspir 81 (Aspirin) 81 Mg Tablet.dr 1 Tab PO DAILY 08/26/17 Reported Atorvastatin Calcium 80 Mg Tablet 1 Tab PO DAILY 08/26/17 Reported Impression . IMPRESSION: 1. Acute hypoxic respiratory failure, due to COVID-19 viral pneumonia/mild CHF 2. Possible aspiration pneumonitis 3. End-stage renal disease, on hemodialysis. 4. Hyponatremia. 5. 30 years of tobaccoism, likely underlying chronic obstructive pulmonary disease. Plan . Patient to discharge today, I gave him my business card, Call office for follow. EMMA BURGESS MD Apr 25, 2021 08:47
[2021-04-25] MEDS: INSULIN LISPRO 300 UNITS/3 ML VIAL. SQ SCH ×3 (09:07→12:14)
[2021-04-25] MEDS: INSULIN GLARGINE SYRINGE. SQ SCH (09:08)
[2021-04-25] MEDS: HEPARIN for SUB-Q USE 5,000 UNIT/ML VIAL. SQ SCH (09:09)
--- NOTE | 2021-04-25 09:51 | PDOC ---
DATE OF SERVICE DATE: 04/25/21 TIME: 09:50 SUBJECTIVE ROS Stable On o2 by [place] OBJECTIVE Vital Signs Vital Signs Date Time Temp Pulse Resp B/P (MAP) Pulse Ox O2 Delivery O2 Flow Rate FiO2 04/25/21 08:43 61 174/81 04/25/21 07:00 97.9 18 97 Nasal Cannula 3.0 97.9 I & 0 Intake and Output 04/25/21 07:00 Intake Total 1580 ml Output Total 0 ml Balance 1580 ml Intake Oral 1580 ml Output Urine Total 0 ml PHYSICAL EXAM Physical Exam GENERAL: NAD HEENT: Normocephalic, atraumatic. Anicteric. NECK: Supple LUNGS: Clear bilaterally. Non labored HEART: S1, S2. ABDOMEN: Soft, nontender, nondistended, no rebound or guarding. EXTREMITIES: No edema, no cyanosis. DERMATOLOGIC: Warm, dry, no generalized rash. NEUROLOGIC: Alert and oriented x 3, grossly no focal deficit PSYCHIATRIC: Calm and cooperative. No ruth, No CVA or SP tenderness DIAGNOSIS/ASSESSMENT Assessment & Plan ESRD on HD MWF under Dr Riddle , .No indication for dialysis today . Undergoing Renal Tx eval at HypoNatremia- ? Chronic noted worsening . Improving, On Trazadone (for approx 1 year) and Mirtazipine (6 Months) Mirtazipine held Restricted free water intake to [address] Valadez HyperKalemia- resolved Acute on chronic hypoxic respiratory failure on 3 lts o2 by [place] .CoVid Positive Management per Pulm/ID Hiccups- per GI COVID 19 Pneumonia Accelerated hypertension Antihypertensives,. Renal Doppler in Aug 2019, No e/o JOSELYN .On multiple antihypertensives, Clonidine patch as well . BP better still elevated. . Diabetes mellitus type 2. History of prostate cancer.s/p Radiation treatment Anemia - stable , No indication for LUCHO HX of CAD and [place] COMMENT/RELEVANT DATA Meds Current Medications Medications (Trade) Dose Ordered Sig/Ravinder Start Time Stop Time Status Last Admin Dose Admin Acetaminophen (Tylenol) 650 mg PRN Q6HRS PRN 04/18/21 08:45 Acetaminophen/ Hydrocodone Bitart (Lortab 7.5/325) 1 tab PRN Q6HRS PRN 04/18/21 08:45 04/25/21 02:57 1 TAB Albumin Human 200 ml @ 200 mls/hr 1X PRN PRN 04/24/21 12:00 04/24/21 17:59 DC Albuterol Sulfate (Ventolin Neb Soln) 2.5 mg PRN Q4HRS PRN 04/18/21 10:30 Albuterol/ Ipratropium (Duoneb) 3 ml RTQID 04/18/21 12:00 04/18/21 12:01 DC Amlodipine Besylate (Norvasc) 10 mg DAILY 04/18/21 09:00 04/25/21 08:42 10 MG Amylase/Lipase/ Protease (Zenpep 10,000) 1 cap DAILYWBKFT 04/18/21 09:00 04/25/21 08:40 1 CAP Aspirin (Aspirin Chewable) 162 mg 1X ONCE 04/17/21 23:00 04/17/21 23:01 DC 04/17/21 22:32 162 MG Aspirin (Ecotrin) 81 mg DAILY 04/18/21 09:00 04/25/21 08:42 81 MG Atorvastatin Calcium (Lipitor) 80 mg QHS 04/18/21 21:00 04/24/21 20:22 80 MG Azithromycin (Zithromax) 250 mg DAILY 04/18/21 12:00 04/19/21 09:20 DC 04/19/21 08:43 250 MG Baclofen (Lioresal) 5 mg TID 04/24/21 15:30 04/25/21 08:42 5 MG Calcitriol (Rocaltrol) 0.25 mcg DAILY 04/18/21 09:00 04/25/21 08:41 0.25 MCG Carvedilol (Coreg) 25 mg BIDWMEALS 04/18/21 09:00 04/25/21 08:43 25 MG Ceftriaxone Sodium (Rocephin) 1 gm 1X ONCE 04/17/21 23:00 04/17/21 23:01 DC 04/17/21 23:43 1 GM Clonidine HCl (Catapres Tts-1) 1 patch Sa@0900 04/22/21 11:30 04/22/21 12:28 1 PATCH Clonidine HCl (Catapres) 0.1 mg PRN Q8HRS PRN 04/22/21 21:00 04/23/21 17:50 0.1 MG Dexamethasone Sodium Phosphate (Decadron) 6 mg DAILY 04/18/21 16:00 04/25/21 08:44 6 MG Doxazosin Mesylate (Cardura) 4 mg DAILY 04/18/21 09:00 04/25/21 08:43 4 MG Fish Oil (Fish Oil) 1,000 mg DAILY 04/18/21 10:00 04/25/21 08:42 1,000 MG Heparin Sodium (Porcine) (Heparin Sodium) 5,000 unit Q12HR 04/18/21 10:00 04/25/21 09:09 5,000 UNIT Hydralazine HCl (Apresoline Inj) 10 mg PRN Q4HRS PRN 04/19/21 09:15 04/25/21 04:59 10 MG Hydralazine HCl (Apresoline) 100 mg TID 04/18/21 10:00 04/25/21 08:41 100 MG Info (PHARMACY MONITORING -- do not chart) 1 each PRN DAILY PRN 04/24/21 12:00 Insulin Glargine (Lantus Syringe) 24 unit DAILY 04/21/21 09:00 04/25/21 09:08 24 UNIT Insulin Human Lispro (HumaLOG) 0-8 UNITS QIDACHS 04/22/21 21:00 04/25/21 09:08 3 UNITS Isosorbide Mononitrate (Imdur) 60 mg DAILY 04/18/21 09:00 04/25/21 08:41 60 MG Lactobacillus Rhamnosus (Culturelle) 1 cap BID 04/18/21 21:00 04/25/21 08:41 1 CAP Lidocaine HCl (Lidocaine Pf 2% Vial) 5 ml STK-MED ONCE 04/23/21 11:06 04/23/21 11:07 DC Loperamide HCl (Imodium) 2 mg PRN BID PRN 04/21/21 09:45 04/22/21 08:46 2 MG Midazolam HCl (Versed) 2 mg STK-MED ONCE 04/23/21 11:03 04/23/21 11:03 DC Mirtazapine (Remeron) 30 mg QHS 04/18/21 21:00 04/23/21 15:36 DC 04/22/21 21:36 30 MG Nitroglycerin (Nitrostat) 0.4 mg PRN Q5MIN PRN 04/17/21 22:30 9/27/21 22:32 0.4 MG Pantoprazole Sodium (Protonix) 40 mg DAILYAC 04/18/21 11:30 04/25/21 08:42 40 MG Piperacillin Sod/ Tazobactam Sod 2.25 gm/Sodium Chloride 50 ml @ 100 mls/hr Q8HRS 04/18/21 14:00 04/19/21 09:19 DC 04/19/21 05:44 100 MLS/HR Prochlorperazine Maleate (Compazine) 5 mg PRN Q6HRS PRN 04/18/21 13:45 04/23/21 20:34 5 MG Promethazine HCl (Phenergan) 50 mg PRN Q6HRS PRN 04/20/21 10:45 04/23/21 08:42 37.5 MG Remdesivir 100 mg/ Sodium Chloride 230 ml @ 460 mls/hr Q24H 04/19/21 15:00 04/22/21 15:29 DC 04/22/21 15:00 460 MLS/HR Remdesivir 200 mg/ Sodium Chloride 210 ml @ 210 mls/hr 1X ONCE 04/18/21 15:00 04/18/21 15:59 DC 04/18/21 15:38 210 MLS/HR Sevelamer Carbonate (Renvela) 800 mg TIDWMEALS 04/18/21 12:00 04/25/21 08:42 800 MG Sodium Chloride 1,000 ml @ 400 mls/hr Q2H30M PRN 04/24/21 12:00 04/24/21 23:59 DC Sodium Chloride (Normal Saline Flush) 10 ml 1X PRN PRN 04/24/21 12:00 04/25/21 11:59 Tizanidine HCl (Zanaflex) 4 mg PRN TID PRN 04/24/21 15:30 04/25/21 01:05 4 MG Trazodone HCl (Desyrel) 100 mg QHS 04/18/21 21:00 04/24/21 20:22 100 MG Lab Laboratory Tests Test 04/24/21 11:52 04/24/21 17:39 04/24/21 19:46 04/25/21 05:40 Glucose (Fingerstick) 229 mg/dL (70-99) 133 mg/dL (70-99) 212 mg/dL (70-99) Sodium Level 128 mmol/L (136-145) Potassium Level 5.0 mmol/L (3.5-5.1) Chloride Level 94 mmol/L (98-107) Carbon Dioxide Level 29 mmol/L (21-32) Anion Gap 5 (6-14) Blood Urea Nitrogen 41 mg/dL (8-26) Creatinine 4.2 mg/dL (0.7-1.3) Estimated GFR (Cockcroft-Gault) 18.0 Glucose Level 291 mg/dL (70-99) Calcium Level 7.9 mg/dL (8.5-10.1) Test 04/25/21 08:06 Glucose (Fingerstick) 241 mg/dL (70-99) Results All relevant outside records, renal labs, imaging studies, telemetry/EKG's were reviewed. Justicifation of Admission Dx: Justifications for Admission: Justification of Admission Dx: N/A CARLO CHAUHAN MD Apr 25, 2021 09:51
[2021-04-25 11:00] VITALS: BP 156/71
[2021-04-25] MEDS ORDERED: PANT40TA77 PO (11:23)
[2021-04-25] MEDS ORDERED: INSU100V35 SQ (11:23)
[2021-04-25] MEDS ORDERED: BACL10TA PO (11:23)
[2021-04-25] MEDS ORDERED: CLON1PAT TD (11:23)
--- NOTE | 2021-04-25 11:25 | DISCH ---
DISCHARGE INSTRUCTIONS Condition on Discharge Condition on Discharge: Stable Activity After Discharge Activity Instructions for Disc: Activity as tolerated Weight Bearing Status after Di: As tolerated Diet after Discharge Diet after Discharge: Renal Dialysis (ADA,1500 cc fluid restriction) Diet Texture: Regular Liquid Texture: Thin Liquid Swallowing Supervision: None needed Wound Incision Care Wound/Incision Care: No wound care needed Checks after Discharge Checks after discharge: Check blood press - daily, Check blood sugar, ac/hs, Check your Temp as needed, Weigh Yourself Daily Contacting the DR. after DC Call your doctor for: Concerns you may have Follow-Up Follow up with: Dr.Pratip Aldana in 5 days Follow Up With: Treatment/Equipment after DC Adaptive Equipment Issued: None TRINA ALDANA MD Apr 25, 2021 11:25
--- NOTE | 2021-04-25 11:29 | PDOC ---
Date of Service: DATE: 04/25/21 TIME: 11:22 Subjective: Subjective: No hiccups. Eating and stooling without issue. Objective: Vital Signs: Vital Signs Date Time Temp Pulse Resp B/P (MAP) Pulse Ox O2 Delivery O2 Flow Rate FiO2 04/25/21 08:43 61 174/81 04/25/21 07:00 97.9 18 97 Nasal Cannula 3.0 97.9 Labs: Laboratory Tests Test 04/24/21 11:52 04/24/21 17:39 04/24/21 19:46 04/25/21 08:06 Glucose (Fingerstick) 229 mg/dL (70-99) 133 mg/dL (70-99) 212 mg/dL (70-99) 241 mg/dL (70-99) PE: GEN: NAD - visual exam done in COVID isolation LUNGS: NC 3L HEART: RRR ABD: non-distended NEURO/PSYCH: A & O 3, cheerful A/P: COVID pneumonia Hiccups - resolved H/o GERD, chronic pancreatitis -- Doing well GI-araiza. Justicifation of Admission Dx: Justifications for Admission: Justification of Admission Dx: N/A KIMMY MARAVILLA Apr 25, 2021 11:29
[2021-04-25] MEDS ORDERED: INSULIN LISPRO 300 UNITS/3 ML VIAL. SQ SCH (11:30)
--- NOTE | 2021-04-25 11:30 | PDOC3 ---
IM DISCHARGE SUMMARY Date of Admission Date of Admission Date of Admission: Apr 17, 2021 at 22:45 Date of Discharge Date of Discharge 04/25/21 Primary Diagnosis Primary Diagnosis 1. Pneumonia, bilateral COVID-19 pneumonia. 2. Exacerbation of chronic obstructive pulmonary disease. 3. Acute on chronic hypoxic respiratory failure. 4. End-stage renal disease, on hemodialysis Saturday, Saturday, Saturday. 5. Hiccups. 6. Gastroesophageal reflux disease. 7. Accelerated hypertension. 8. 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 9. Hyperlipidemia. 10. Coronary artery disease with history of stent placement. 11. Chronic pancreatitis. 12. Anemia. 13. History of myocardial infarction. 14. Surgery for removal of salivary gland. 15. History of prostate cancer, treated with radiation therapy. 16. Physical deconditioning. 17. Osteoarthritis. 18. Chronic back pain. Consults Consults Giles Santo MD; Julieta Valadez MD; Kp Riddle MD; Derek Gray MD; Gretel Aguilar MD Labs Labs Laboratory Tests Test 04/24/21 11:52 04/24/21 17:39 04/24/21 19:46 04/25/21 05:40 Glucose (Fingerstick) 229 mg/dL (70-99) H 133 mg/dL (70-99) H 212 mg/dL (70-99) H Sodium Level 128 mmol/L (136-145) L Potassium Level 5.0 mmol/L (3.5-5.1) Chloride Level 94 mmol/L (98-107) L Carbon Dioxide Level 29 mmol/L (21-32) Anion Gap 5 (6-14) L Blood Urea Nitrogen 41 mg/dL (8-26) H Creatinine 4.2 mg/dL (0.7-1.3) H Estimated GFR (Cockcroft-Gault) 18.0 Glucose Level 291 mg/dL (70-99) H Calcium Level 7.9 mg/dL (8.5-10.1) L Test 04/25/21 08:06 Glucose (Fingerstick) 241 mg/dL (70-99) H Laboratory Tests 04/25/21 05:40 Brief hospital course Brief hospital course This 55-year-old male who has history of diabetes; COPD; end-stage renal disease, on hemodialysis; along with coronary artery disease; chronic pancreatitis and history of prostate cancer, started having shortness of breath for last 24 hours. He also had hiccups. The patient could not get dialysis yesterday. Because of the worsening dyspnea and hiccups he came to the Emergency Room. In the Emergency Room, chest x-ray showed bilateral infiltrates. His WBC count had increased to 17.2, hemoglobin was 12.3. Sodium was low at 123, potassium 5.5, BUN 36, creatinine 7.2, glucose 159, calcium 8.7. BNP 4373. Troponin less than 0.017. Albumin 3. COVID-19 PCR rapid test was negative. Chest x-ray showed increased right upper and mid lung opacities, may represent pneumonia including viral pneumonia and mild bilateral reticular interstitial thickening, may indicate chronic interstitial changes. Because of the pneumonia, exacerbation of COPD, hyponatremia and hiccups and need for dialysis, the patient was admitted for further evaluation and management. For more details regarding the past history, family history, social history, surgical history and other details, please refer to the H&P. 1. Pneumonia. COVID-19 PCR test is positive. Has COVID-[address] Gray. Start IV Rocephin and Zithromax that were given yesterday. I will consult Dr. Gretel Aguilar for Infectious Disease evaluation because of his multiple medical problems. Started on IV remdesivir and IV dexamethasone. Discussed with Dr. Gray. 2. Exacerbation of COPD. 3. Acute on chronic hypoxic respiratory failure. Continue oxygen by nasal cannula. 4. End-stage renal disease, on hemodialysis. Consult Dr. Riddle for Nephrology evaluation and management. He will get hemodialysis today. 5. Persistent hiccups. Improving. Continue home medications as the patient also has gastroesophageal reflux disease. Pantoprazole. Consult Dr. Santo for GI evaluation and management. Increase promethazine. 6. COVID-19 rapid antigen test was negative in the ER. However COVID-19 PCR test is positive. 7. Diabetes mellitus not controlled due to infection as well as IV steroids. Restart Lantus and increase scheduled insulin and sliding scale insulin. 8. Accelerated hypertension. BImproving. Add IV hydralazine 10 mg as needed e very 4 hours. I have ordered Catapres patch today. Discussed with patient. 9. Hyponatremia. Sodium 128. Patient is getting IV normal saline. He likely is drinking a lot of free water. Advised 1500 cc fluid restriction. D/w . Ok to discharge. Medications Medications reviewed and reconciled for discharge. Home Meds Active Scripts Insulin Lispro (Admelog) 100 Unit/1 Ml Vial, 0 UNITS SQ QIDACHS for DM for 30 Days, #1 EACH Prov:TRINA VALADEZ MD 04/25/21 Pantoprazole Sodium (PANTOPRAZOLE SODIUM ) 40 Mg Tablet.dr, 40 MG PO DAILYAC for GERD for 30 Days, #30 TAB.SR 3 Refills Prov:TIRNA VALADEZ MD 04/25/21 Clonidine (CLONIDINE TTS-1 ) 1 Each Patch.tdwk, 1 PATCH TD Sa@0900 for HTN for 28 Days, #4 PATCH 5 Refills Prov:TRINA VALADEZ MD 04/25/21 Baclofen (BACLOFEN) 10 Mg Tablet, 5 MG PO TID PRN for HICCUPS, #15 TAB Prov:TRINA VALADEZ MD 04/25/21 Insulin Lispro (Admelog) 100 Unit/1 Ml Vial, 6 UNITS SQ TIDWMEALS for DM for 30 Days, #5 EACH 5 Refills Prov:TRINA VALADEZ MD 12/17/20 Insulin Glargine,Hum.rec.anlog (LANTUS) 100 Unit/1 Ml Vial, 14 UNIT SQ DAILY10 for DM for 30 Days, #5 EACH 5 Refills Prov:TRINA VALADEZ MD 12/17/20 Calcitriol (CALCITRIOL) 0.25 Mcg Capsule, 0.25 MCG PO DAILY for ESRD for 30 Days, #30 CAP 5 Refills Prov:TRINA VALADEZ MD 07/04/20 Sevelamer Carbonate (RENVELA) 800 Mg Tablet, 800 MG PO TIDWMEALS for ESRD for 30 Days, #90 TAB 5 Refills Prov:TRINA VALADEZ MD 07/04/20 Amlodipine Besylate (AMLODIPINE BESYLATE) 10 Mg Tablet, 10 MG PO DAILY for htn for 30 Days, #30 TAB Prov:INÉS WALTER MD 09/13/19 Isosorbide Mononitrate (ISOSORBIDE MONONITRATE ER) 30 Mg Tab.er.24h, 60 MG PO DAILY for htn for 30 Days, #60 TAB.SR Prov:INÉS WALTER MD 09/13/19 Reported Medications Tizanidine Hcl (TIZANIDINE HCL) 4 Mg Tablet, 1 TAB PO QHS for muscle spasms, #30 TAB 04/18/21 Lipase/Protease/Amylase (ZENPEP DR 10,000 UNITS CAPSULE) 1 Each Capsule.dr, 1 EACH PO DAILY for supplement, CAP 04/18/21 Doxazosin Mesylate (DOXAZOSIN MESYLATE) 4 Mg Tablet, 1 TAB PO DAILY for HTN, #30 TAB 5 Refills 04/18/21 Trazodone Hcl (TRAZODONE HCL) 100 Mg Tablet, 1 TAB PO QHS for insomnia, #30 TAB 1 Refill 12/16/20 Hydrocodone/Acetaminophen (Hydrocodone-Acetamin 7.5-325) 1 Each Tablet, 7.5-325 MG PO Q6HRS PRN for PAIN 07/01/20 Amity-3/Dha/Epa/Fish Oil (Fish Oil 1,000 mg Softgel) 1,000 Mg Capsule, 1000 MG PO DAILY for , CAP 06/29/20 Carvedilol (CARVEDILOL) 25 Mg Tablet, 25 MG PO BIDWMEALS for CARDIAC, TAB 06/29/20 Hydralazine Hcl (HYDRALAZINE HCL) 100 Mg Tablet, 1 TAB PO TID for , #90 TAB 5 Refills 06/29/20 Aspirin (ASPIR 81) 81 Mg Tablet.dr, 1 TAB PO DAILY 08/26/17 Atorvastatin Calcium (ATORVASTATIN CALCIUM) 80 Mg Tablet, 1 TAB PO DAILY 08/26/17 Discontinued Reported Medications Mirtazapine (MIRTAZAPINE) 30 Mg Tab.rapdis, 1 TAB PO QHS for for 30 Days, #30 TAB 0 Refills 06/29/20 Allergy Allergies Coded Allergies Type Severity Reaction Last Updated Verified morphine Allergy Intermediate Itching 06/29/20 Yes lisinopril Adverse Reaction Intermediate Dry Cough 04/17/21 Yes Follow up in 5 days. Comments Discharge Management - 35 minutes. For other details please refer to discharge instructions Justicifation of Admission Dx: Justifications for Admission: Justification of Admission Dx: N/A TRINA VALADEZ MD Apr 25, 2021 11:30
[2021-04-25 14:06] VITALS: BP 156/71
--- NOTE | 2021-04-25 15:00 | NUR ---
DISCHARGE INSTRUCTIONS GIVEN, QUESTIONS AND CONCERNS ANSWERED, PATIENT VERBALIZED UNDERSTANDING OF DISCHARGE INFORMATION INCLUDING TAKING ALL MEDICATIONS INSTRUCTED AND FOLLOWING UP WITH HIS PRIMARYPROVIDER IN 1-2 WEEKS. TRIPLE LUMEN RIGHT IJ REMOVED PER THIS RENAL CASE MANAGER, OCCLUSIVE DRESSING APPLIED, PATIENT INFORMED THAT HE COULD REMOVE THE DRESSING IN 24 HRS.
--- NOTE | 2021-04-25 15:38 | NUR ---
PATIENT LEAVES THE UNIT PER W/C AND ACCOMPANIED BY THIS RESIDENT MANAGER, EMOTIONAL SUPPORT GIVEN, FOLLOW UP APPOINTMENTS ENCOURAGED.
[2021-04-26] MEDS ORDERED: INSULIN GLARGINE SYRINGE. SQ SCH (09:00)
[2021-04-28] MEDS ORDERED: LIPA1CAP31 PO (09:32)
[2021-05-01] MEDS ORDERED: AMOX1TAB58 PO (09:04)
[2021-05-01] MEDS ORDERED: LACT1CAP19 PO (09:04)
== END 2021-04-25 15:38 | disposition home or self-care (01) | DRG 177 ==
LOC: ER 19:02 → 5 NORTH 22:45
PROVIDERS: ADMIT Internal Medicine; ATTEND Internal Medicine
PROC: 02HV33Z Insertion of Infusion Device into Superior Vena Cava, Percutaneous Approach (ICD-10-PCS; 2021-04-18)
PROC: 5A1D70Z Performance of Urinary Filtration, Intermittent, Less than 6 Hours Per Day (ICD-10-PCS; 2021-04-18)
PROC: XW033E5 Introduction of Remdesivir Anti-infective into Peripheral Vein, Percutaneous Approach, New Technology Group 5 (ICD-10-PCS; principal; 2021-04-19)
PROC: 5A1D70Z Performance of Urinary Filtration, Intermittent, Less than 6 Hours Per Day (ICD-10-PCS; 2021-04-19)
PROC: 5A1D70Z Performance of Urinary Filtration, Intermittent, Less than 6 Hours Per Day (ICD-10-PCS; 2021-04-24)
DX: U07.1 COVID-19 (principal); J12.82 Pneumonia due to coronavirus disease 2019; J96.21 Acute and chronic respiratory failure with hypoxia; N18.6 End stage renal disease; E87.1 Hypo-osmolality and hyponatremia; I13.2 Hypertensive heart and chronic kidney disease with heart failure and with stage 5 chronic kidney disease, or end stage renal disease; J44.0 Chronic obstructive pulmonary disease with (acute) lower respiratory infection; J44.1 Chronic obstructive pulmonary disease with (acute) exacerbation; K86.0 Alcohol-induced chronic pancreatitis; C61 Malignant neoplasm of prostate; D64.9 Anemia, unspecified; E11.22 Type 2 diabetes mellitus with diabetic chronic kidney disease; E11.40 Type 2 diabetes mellitus with diabetic neuropathy, unspecified; E78.00 Pure hypercholesterolemia, unspecified; E78.5 Hyperlipidemia, unspecified; F17.210 Nicotine dependence, cigarettes, uncomplicated; F43.10 Post-traumatic stress disorder, unspecified; G89.29 Other chronic pain; I25.10 Atherosclerotic heart disease of native coronary artery without angina pectoris; I25.2 Old myocardial infarction; I50.9 Heart failure, unspecified; J30.9 Allergic rhinitis, unspecified; K21.9 Gastro-esophageal reflux disease without esophagitis; K57.90 Diverticulosis of intestine, part unspecified, without perforation or abscess without bleeding; M19.90 Unspecified osteoarthritis, unspecified site; Z78.9 Other specified health status; Z79.82 Long term (current) use of aspirin; Z82.49 Family history of ischemic heart disease and other diseases of the circulatory system; Z83.3 Family history of diabetes mellitus; Z85.46 Personal history of malignant neoplasm of prostate; Z87.19 Personal history of other diseases of the digestive system; Z90.49 Acquired absence of other specified parts of digestive tract; Z92.3 Personal history of irradiation; Z95.5 Presence of coronary angioplasty implant and graft; Z99.2 Dependence on renal dialysis; Z99.81 Dependence on supplemental oxygen; Z71.6 Tobacco abuse counseling; Z88.8 Allergy status to other drugs, medicaments and biological substances; E87.5 Hyperkalemia
CPT/HCPCS: 36415; 71045; 71250; 80048; 80051; 80053; 82962; 83605; 83735; 83880; 84100; 84145; 84484; 85007; 85025; 87040; 87426; 87449; 93005; J0360; J0456; J0696; J1100; J1644; J1815; J2250; J2543; J7030; J7050; U0003; U0005; 99285-25; G0378; Q0164; Q0169

== ENCOUNTER 2021-06-12 08:30 | Inpatient (IN) | payer BC ==
[~2021-06-12] VITALS: Ht 165.1 cm; Wt 59.0 kg
[~2021-06-12 08:30] MED LIST changes: +AMOX1TAB58 PO; +BACL10TA PO; +CLON1PAT TD; +LACT1CAP19 PO; +LIPA1CAP31 PO; +PANT40TA77 PO; +TIZA-75 PO
[2021-06-13 13:36] VITALS: BP 155/71
[2021-06-13] MEDS ORDERED: INSU100V6 SQ (14:19)
[2021-06-13] MEDS ORDERED: OMEP40CA7 PO (14:19)
[2021-06-13] MEDS ORDERED: INSU100I13 SQ (14:19)
[2021-06-22] VITALS (10 sets, daily range): BP systolic 93–212; BP diastolic 58–96
[2021-06-22] MEDS ORDERED: LIDOCAINE 2% PF 5 ML VIAL. ONE (05:16)
[2021-06-22] MEDS ORDERED: fentaNYL PF VIAL 100 MCG/2 ML VIAL ONE (05:16)
[2021-06-22] MEDS ORDERED: PROPOFOL 50 ML IV ONE ×2 (05:16→08:27)
[2021-06-22] MEDS ORDERED: PROPOFOL 10 MG/ML (20ML) VIAL. IV ONE (05:16)
[2021-06-22] MEDS ORDERED: REMIFENTANIL 2 MG VIAL. IV ONE (05:17)
[2021-06-22] MEDS ORDERED: ROCURONIUM 50 MG/5 ML VIAL. ONE (05:17)
[2021-06-22] MEDS ORDERED: MIDAZOLAM HCL/PF 2 MG/2 ML VIAL. ONE (05:17)
[2021-06-22] MEDS ORDERED: SUCCINYLCHOLINE 200 MG/10 ML VIAL. ONE (05:17)
[2021-06-22] MEDS ORDERED: PHENYLEPHRINE 10 MG/ML VIAL. ONE ×2 (05:18→05:43)
[2021-06-22] MEDS ORDERED: PHENYLEPHRINE in 0.9% NACL PF 1 MG/10 ML SYRINGE. IV ONE (05:18)
[2021-06-22] MEDS ORDERED: ePHEDrine PF IN SALINE 50 MG/10 ML SYRINGE. IV ONE (05:41)
[2021-06-22] MEDS ORDERED: IV RINGERS,LACTATED 1000ML 1,000 ML IV SCH (06:00)
[2021-06-22] MEDS ORDERED: ceFAZolin SODIUM 1 GM in IV NORMAL SALINE 1000ML BAG 1,000 ML IRR ONE (06:00)
[2021-06-22] MEDS ORDERED: PROCHLORPERAZINE 10 MG/2 ML VIAL. IVP PRN (06:00)
[2021-06-22] MEDS ORDERED: fentaNYL PF VIAL 100 MCG/2 ML VIAL IVP PRN (06:00)
[2021-06-22] MEDS ORDERED: BUPIVACAINE-EPI 0.5% 30 ML VIAL KIT. ONE (06:45)
[2021-06-22] MEDS ORDERED: THROMBIN TOPICAL 20,000 UNIT SPRAY.SYRN KIT TP ONE (06:45)
[2021-06-22] MEDS ORDERED: KETOROLAC 60 MG/2 ML VIAL. ONE (06:45)
[2021-06-22] MEDS ORDERED: GELATIN SPONGE SIZE 100. ONE (06:45)
[2021-06-22] MEDS ORDERED: INSULIN LISPRO 100 UNIT/ML 3ML VIAL for OP,RR ONLY. SQ PRN (07:30)
[2021-06-22] MEDS ORDERED: IV NORMAL SALINE 1000ML BAG 1,000 ML IV SCH (07:45)
[2021-06-22 07:55] LABS: CALCIUM 8.5 mg/dL (8.5-10.1); CREATININE 4.5 mg/dL (0.7-1.3); GFR 16.6
[2021-06-22] MEDS ORDERED: HYDROmorphone 2 MG/ML VIAL ONE (09:40)
[2021-06-22] MEDS ORDERED: NEOSTIGMINE METHYLSULFATE 5 MG/5 ML SYRINGE. ONE (09:44)
[2021-06-22] MEDS ORDERED: GLYCOPYRROLATE 1 MG/5 ML VIAL. ONE (09:44)
[2021-06-22] MEDS ORDERED: SEVOFLURANE > 120 MINUTES. IH ONE (09:58)
--- NOTE | 2021-06-22 10:32 | HP ---
DATE OF SERVICE: 06/22/2021 ADMIT DATE: 06/22/2021 PREOPERATIVE HISTORY AND PHYSICAL HISTORY OF PRESENT ILLNESS: The patient is a pleasant 55-year-old who is having difficulty with neck pain along with right shoulder and arm pain and numbness. He also notes interscapular pain. The problem has been present for about 6 months. Additionally, he has numbness in his left forearm. He awakened with the problem. He says the pain can reach 10/10. It is constant. His pain is increased with activity and turning his head. He takes 2 hydrocodone per day to help control the problem. He has had epidural steroid injections, which he said helped him some. He said a few years ago he had a similar problem and had physical therapy and epidural injections and improved. CURRENT MEDICATIONS: Trazodone, pantoprazole, Nephro-Nicole, isosorbide, hydralazine, fish oil, doxazosin, vitamin B12, Coreg, atorvastatin, amlodipine, hydrocodone, insulin and baby aspirin. PAST MEDICAL HISTORY: Diabetes, pancreatitis, cancer, [place], hypertension, radiation, kidney disease with dialysis on Mondays, Wednesdays and Fridays and shingles. PAST SURGICAL HISTORY: Cholecystectomy, removal of pseudocyst and lumbar diskectomy in 2008. FAMILY HISTORY: Cancer, diabetes, hypertension, heart disease and Alzheimer disease. SOCIAL HISTORY: Disabled, single, currently smokes 1 pack per day for 35 years. Does not drink alcohol. Quit drinking alcohol more than 10 years ago. ALLERGIES: MORPHINE. REVIEW OF SYSTEMS: A 12-point review of systems was performed and is noncontributory except that mentioned above. PHYSICAL EXAMINATION: GENERAL: Alert, pleasant, in no acute distress. HEENT: Head is normocephalic, atraumatic. NECK: Ykjv-wl-vpeyjuyx tenderness with palpation of the posterior cervical region. SKIN: Warm and dry. MUSCULOSKELETAL: Cervical paraspinal muscle bulk is normal, cervical range of motion is restricted. There is normal range of motion of the upper extremities bilaterally. EXTREMITIES: No clubbing, cyanosis or edema. NEUROLOGIC: Alert and oriented x 3. Normal recent and remote memory. Strength is 5/5 in the upper and lower extremities bilaterally. Sensory is intact to light touch in the upper and lower extremities bilaterally except for decreased sensation in the anterolateral right forearm as well as the left forearm diffusely. Reflexes were present and symmetric in the upper and lower extremities bilaterally. Normal gait. IMAGING: I reviewed his cervical MRI scan. On that study at C4-C5, he has severe stenosis and moderate stenosis at C3-C4. At C5-C6 and especially C6-C7 on the right, there is neural foraminal narrowing. ASSESSMENT AND PLAN: The problem has been present intermittently for years. He has had epidural steroid injections as well as physical therapy in the past. His pain is severe. I explained to him in detail all of these problems would require a posterior cervical approach with laminectomies C3 through C5 and lateral mass fusion combined with right-sided posterior hemilaminotomy/medial facetectomies at C5-C6 and C6-C7 on the right. He understands this. He would strongly like to go ahead. I spoke with him about the risk as well as the expected postoperative course. He understands and would like to proceed. LAUREANO/MONICA/GILBERTO DR: Mynor TID: [id number] AZUL
[2021-06-22] MEDS ORDERED: BACLOFEN 10 MG TABLET. PO PRN (12:45)
[2021-06-22] MEDS ORDERED: CALCIUM CARBONATE 500 MG TAB.CHEW PO PRN (13:00)
[2021-06-22] MEDS ORDERED: ACETAMINOPHEN 325 MG TABLET. PO PRN (13:00)
[2021-06-22] MEDS ORDERED: MAGNESIUM HYDROXIDE 2,400 MG/30 ML ORAL.SUSP. PO PRN (13:00)
[2021-06-22] MEDS ORDERED: diphenhydrAMINE HCL 25 MG CAPSULE PO PRN (13:00)
[2021-06-22] MEDS ORDERED: 0.9 % SODIUM CHLORIDE 10 ML DISP.SYRIN. IV PRN (13:00)
[2021-06-22] MEDS ORDERED: oxyCODONE/APAP 5/325 1 TAB TABLET PO PRN (13:00)
[2021-06-22] MEDS ORDERED: NALOXONE 0.4 MG/ML VIAL. IV PRN (13:00)
[2021-06-22] MEDS ORDERED: ONDANSETRON PF 4 MG/2 ML VIAL. IVP PRN (13:00)
[2021-06-22] MEDS ORDERED: MAG HYDROX/ALUMINUM HYD/SIMETH 30 ML ORAL.SUSP PO PRN (13:00)
[2021-06-22] MEDS: fentaNYL PF VIAL 100 MCG/2 ML VIAL IVP PRN ×2 (13:38→13:55)
[2021-06-22] MEDS ORDERED: ceFAZolin SODIUM IV Push 1 GM VIAL. IVP ONE (13:52)
[2021-06-22] MEDS: DOXAZOSIN MESYLATE 4 MG TABLET. PO SCH (14:00)
[2021-06-22] MEDS ORDERED: ceFAZolin SODIUM IV Push 1 GM VIAL. IVP SCH (14:00)
--- NOTE | 2021-06-22 15:50 | NUR ---
Patient arrived to the floor around 1420 in a bed from PACU. Thigh high LISANDRA hose in place. Oxygen per NC at 2L with vitals signs stable. However, BP slightly low so BP medications held. Patient able to awaken with physical stimulation but is quite sedated upon admission. Able to open his eyes slightly when this nurse was introducing patient to the floor but he quickly went back to sleep. IV in DINH infusing fluids from PACU at this time. Paged Dr Riddle for further fluid orders due to ESRD and low BP. IV in RF saline locked. Ice pack to posterior neck with no drainage from surgical incision noted at this time. Will monitor.
[2021-06-22 16:12] LABS: PROTHROMBIN TIME PATIENT 14.7 SEC (11.7-14.0)
[2021-06-22] MEDS: INSULIN LISPRO 300 UNITS/3 ML VIAL. SQ SCH (17:00)
[2021-06-22] MEDS: LIPASE/PROTEAS/AMYLAS 10/32/42 CAPSULE.DR. PO SCH (17:23)
[2021-06-22] MEDS: oxyCODONE/APAP 5/325 1 TAB TABLET PO PRN ×2 (17:23→20:56)
[2021-06-22] MEDS: PANTOPRAZOLE 40 MG TABLET.DR. PO SCH (17:24)
[2021-06-22] MEDS: SEVELAMER CARBONATE 800 MG TABLET. PO SCH (17:24)
[2021-06-22] MEDS: ceFAZolin SODIUM IV Push 1 GM VIAL. IVP SCH (17:27)
[2021-06-22] MEDS: IV NORMAL SALINE 1000ML BAG 1,000 ML IV SCH (17:28)
[2021-06-22] MEDS ORDERED: POTASSIUM BICARB 20 MEQ EFFERVESCENT TABLET. PO ONE (17:30)
--- NOTE | 2021-06-22 17:34 | PDOC ---
Provider Note Date of Service: DATE: 06/22/21 TIME: 17:33 Provider Note Consult dictated #[id number] Justifications for Admission Other Justification TRINA ALDANA MD Jun 22, 2021 17:33
--- NOTE | 2021-06-22 19:08 | OP ---
DATE OF SURGERY: 06/22/2021 PREOPERATIVE DIAGNOSES: 1. Cervical spinal stenosis, C3-4, C4-5. 2. Right cervical radiculopathy from neural foraminal narrowing, C5-6, C6-7. OPERATIONS PERFORMED: 1. Cervical laminectomy, C3-4, C4-5. 2. Posterior instrumentation C3, C4, C5, C6 with facet fusion C3-4, C4-5, C5-6. 3. Hemilaminotomy and medial facetotomy, right, C5-6, C6-7. The operation was done with EMG monitoring, SSEP monitoring, motor evoked potentials, fluoroscopy, microscopic dissection. SURGEON: Nitin Howe M.D. DIRECTOR OF SCIENCE: Rhina Gibson APRN, assisted with the surgery. She assisted with the exposure, the hemilaminotomies, the laminectomy, the instrumentation and the fusion. OPERATIVE INDICATIONS: The patient is a pleasant 55-year-old man who developed problems with severe neck pain along with right shoulder and arm pain and numbness. There was also interscapular pain. He had epidural steroids for this problem and as well had physical therapy and further epidural steroid injections in the more distant past for the same problem and had some temporary improvement, but the problem recurred. After discussing with him the above-mentioned imaging findings, I recommended surgery as described above and he wished to go ahead. DESCRIPTION OF PROCEDURE: Following general endotracheal anesthesia, the patient was positioned prone on the Cliff table in [place] pins. His posterior cervical region was clipped, prepped and draped in the standard fashion. LISANDRA hose and AV impulse boots were applied for DVT prophylaxis. A microscope was draped, fluoroscopy was draped and brought into the field. Monitoring was established. Ancef 2 grams were given less than 1 hour prior to initiation of surgery. Using fluoroscopic guidance, a midline incision was made extending from C2-C7. I dissected down through skin and subcutaneous tissue, reflected the paraspinal muscles, placed self-retaining retractors and brought in the microscope. On the right side at C5-6 and C6-7, I burred down generous hemilaminotomies. I then trimmed along the course of the exiting root performing a medial facetotomy. I did use the 1 or 2 mm micro Kerrisons to enlarge these openings and fully decompress the roots at those levels. I then using the microscope and microscopic technique, drilled in the lateral masses of C3, C4, C5 and C6. Using standard landmarks, I passed the drill followed by screws. Then, I placed rods of 60 mm on each side and torqued. Following this, I used the high-speed air drill to wendy trough laterally on each side of the lamina to allow me to gently free up after cutting the ligamentum flavum, the lamina and peel it away. I did excoriate the facets bilaterally. Using bone from the lamina, I placed a bone within the facets bilaterally at C3-4, C4-5, C5-6 and C6-7. At this point, then I irrigated copiously with antibiotic solution. Hemostasis was excellent. I removed the retractor and I assured myself of excellent hemostasis in the muscle. I irrigated further. Then, I closed the wound in layers with absorbable suture. The skin was closed with skin ganesh. The patient was awakened uneventfully and taken to recovery room in excellent condition with normal strength. I was quite pleased with the surgery. ANGELA DR: Jenna TID: [id number] AZUL
[2021-06-22] MEDS: DOCUSATE SODIUM 100 MG CAPSULE. PO SCH (20:53)
[2021-06-22] MEDS: traZODone 100 MG TABLET. PO SCH (20:53)
[2021-06-22] MEDS: ATORVASTATIN CALCIUM 40 MG TABLET. PO SCH (20:54)
[2021-06-22] MEDS: INSULIN GLARGINE SYRINGE. SQ SCH (21:01)
--- NOTE | 2021-06-23 01:03 | CONS ---
DATE OF CONSULTATION: 06/22/2021 CONSULTATION REQUESTED BY: Nitin Ken MD HISTORY OF PRESENT ILLNESS: This is a 55 years old male who is known to have coronary artery disease with history of stent placement; history of cervical stenosis; recent COVID-19 pneumonia in April; COPD, on oxygen by nasal cannula 2 liters per minute for chronic respiratory failure; end-stage renal disease, on hemodialysis; diabetes mellitus with neuropathy and nephropathy; gastroesophageal reflux disease and multiple other medical problems including hypertension, has been admitted by Dr. Ken for severe cervical spinal stenosis at C4-C5 and moderate stenosis at C3-C4 and at C5-C6 and C6-C7 on the right side there is neural foraminal narrowing. He admitted for surgery and a medical consultation has been obtained for medical management including his uncontrolled diabetes as his hemoglobin A1c recently was 9.2. He has not been compliant with medication instructions. SYSTEMS REVIEW: At present time, the patient is in lot of pain. His blood pressure was initially higher and now it is much better. He is very sleepy and he is not speaking, but he occasionally opens his eyes and mumbles. He is in lot of pain. Denies any nausea or abdominal pain. Unable to do full systems review. PAST MEDICAL HISTORY: Recent COVID-19 pneumonia in 04/2021, recent acute on chronic hypoxic respiratory failure. He is on oxygen by nasal cannula for chronic respiratory failure, 2 liters per minute. End-stage renal disease, on hemodialysis; gastroesophageal reflux disease; accelerated hypertension; diabetes mellitus type 2 with neuropathy and nephropathy; hyperlipidemia; coronary artery disease with history of stent placement; chronic pancreatitis due to alcoholism in the past; anemia; history of myocardial infarction, COPD and asthma. SURGICAL HISTORY: Includes lumbar diskectomy in 2008, cholecystectomy in 1999, treatment for pancreatic pseudocyst that was removed in 2001. The patient again had lumbar microsurgery in 08/2017, cardiac stent placement and removal of salivary gland. SOCIAL HISTORY: He smokes at least 1 pack per day for over 20 years. History of alcohol abuse, quit drinking alcohol more than 10 years ago. No history of drug abuse. ALLERGIES: No known any. MEDICATIONS: Reviewed and reconciled. FAMILY HISTORY: Positive for cancer, diabetes, hypertension, and heart disease. PHYSICAL EXAMINATION: GENERAL: The patient is a middle-aged male who is sleepy, in mild distress and weak and occasionally opens his eyes. He occasionally mumbles. The patient is in mild distress. VITAL SIGNS: Temperature 97.5, pulse 102 per minute, respirations 17 per minute, and blood pressure 175/85. Then, it decreased to 137/72 mmHg. Last blood pressure is 93/65. EYES: Partial exam unremarkable. HENT: Partial exam unremarkable. NECK: Status post surgery. LUNGS: Decreased breath sounds bilaterally. CARDIOVASCULAR: S1, S2, regular. ABDOMEN: Soft and nontender. No guarding, no rigidity. Bowel sounds present. EXTREMITIES: No edema, no cyanosis, no calf tenderness. CENTRAL NERVOUS SYSTEM: Very sleepy, unable to cooperate and unable to do a full exam partly as he is in lot of pain. LABORATORY FINDINGS: Sodium 131, potassium 3.0, BUN 15, creatinine 4.5, and glucose 263. Currently, glucose is 153. INR 1.2. IMPRESSION: 1. Diabetes mellitus type 2, generally uncontrolled, but currently blood sugars are stable. Last hemoglobin A1c was 9.2. He has diabetic nephropathy and neuropathy. 2. Chronic hypoxic respiratory failure, on oxygen by nasal cannula 2 liters per minute. 3. Chronic obstructive pulmonary disease. 4. Hypokalemia. 5. End-stage renal disease, on hemodialysis. 6. Gastroesophageal reflux disease. 7. Coronary artery disease with history of stent placement. 8. Mixed hyperlipidemia. 9. Chronic pancreatitis. 10. Anemia. 11. Physical deconditioning. 12. Osteoarthritis. 13. Chronic back pain. 14. Cervical spinal stenosis and cervical radiculopathy. Status post posterior cervical hemilaminectomy C5-C6 and C6-C7, cervical laminectomy, C3-C4, C4-C5 with posterior instrumentation and fusion C3-C4 and C4-C5. PLAN: Continue Humalog 6 units subcutaneously t.i.d. with meals. Continue Lantus 24 units subcutaneously at bedtime. I will start him on IV fluids as he is currently not eating. Give potassium chloride 20 mEq x 1 now. He will get hemodialysis Saturday, Saturday, and Saturday and he will get his next dialysis tomorrow. Staff is to call Dr. Riddle for further management of the renal issues as well as potassium. His blood pressure was high earlier, so I have ordered hydralazine 10 mg IV q.4h. p.r.n. for systolic blood pressure more than 160. I have spoken to the patient's mother who was at the bedside about his condition and treatment. For details, please refer to the orders. Dr. Ken, thank you very much for letting me participate in the care of this patient. I will follow him with you as needed. Thank you again. VAZQUEZ/SARWAT/GILBERTO DR: David TID: [id number] CC: NITIN KEN MD
[2021-06-23] MEDS: ceFAZolin SODIUM IV Push 1 GM VIAL. IVP SCH ×2 (02:08→12:25)
[2021-06-23 03:00] VITALS: BP 135/59
[2021-06-23 06:30] LABS: BASO # 0.1 x10^3/uL (0.0-0.2); BASO % 1 % (0-3); EOS # 0.2 x10^3/uL (0.0-0.7); EOS % 2 % (0-3); HEMATOCRIT 33.1 % (39.0-53.0); LYMPH # 1.7 x10^3/uL (1.0-4.8); LYMPH % 18 % (24-48); MEAN CORPUSCULAR HEMOGLOBIN 29 pg (25-35); MEAN CORPUSCULAR HGB CONC 33 g/dL (31-37); MEAN CORPUSCULAR VOLUME 86 fL (79-100); MONO # 0.5 x10^3/uL (0.0-1.1); MONO % 5 % (0-9); NEUT # 7.3 x10^3/uL (1.8-7.7); NEUT % 75 % (31-73); PLATELET COUNT 246 x10^3/uL (140-400); RED BLOOD COUNT 3.86 x10^6/uL (4.30-5.70); RED CELL DISTRIBUTION WIDTH 16.2 % (11.5-14.5); WHITE BLOOD COUNT 9.8 x10^3/uL (4.0-11.0)
[2021-06-23] MEDS: PANTOPRAZOLE 40 MG TABLET.DR. PO SCH (06:32)
[2021-06-23] MEDS: oxyCODONE/APAP 5/325 1 TAB TABLET PO PRN ×4 (06:32→21:22)
[2021-06-23 06:51] LABS: ALBUMIN 2.6 g/dL (3.4-5.0); ALBUMIN/GLOBULIN RATIO 0.8 (1.0-1.7); CALCIUM 7.4 mg/dL (8.5-10.1); CREATININE 6.1 mg/dL (0.7-1.3); GFR 11.7; POTASSIUM 3.4 mmol/L (3.5-5.1); TOTAL BILIRUBIN 0.2 mg/dL (0.2-1.0); TOTAL PROTEIN 5.8 g/dL (6.4-8.2)
[2021-06-23 07:00] VITALS: BP 144/59
[2021-06-23] MEDS: INSULIN LISPRO 300 UNITS/3 ML VIAL. SQ SCH ×5 (07:30→17:00)
[2021-06-23] MEDS: DOCUSATE SODIUM 100 MG CAPSULE. PO SCH ×2 (07:41→20:26)
[2021-06-23] MEDS: METHOCARBAMOL 750 MG TABLET PO PRN ×2 (07:42→14:22)
[2021-06-23] MEDS: LIPASE/PROTEAS/AMYLAS 10/32/42 CAPSULE.DR. PO SCH ×3 (08:00→17:13)
[2021-06-23] MEDS ORDERED: IV NORMAL SALINE 1000ML BAG 1,000 ML IV PRN ×2 (08:00)
[2021-06-23] MEDS: SEVELAMER CARBONATE 800 MG TABLET. PO SCH ×3 (08:00→17:13)
[2021-06-23] MEDS ORDERED: DIALYSIS PATIENT. MC PRN (08:00)
[2021-06-23] MEDS: DOXAZOSIN MESYLATE 4 MG TABLET. PO SCH (09:00)
[2021-06-23] MEDS ORDERED: NON FORMULARY ITEM (Omeprazole 40 MG) PO SCH (09:00)
[2021-06-23] MEDS: ASPIRIN ENTERIC COATED 81 MG TABLET.DR. PO SCH (09:00)
--- NOTE | 2021-06-23 09:09 | PDOC ---
IM PROGRESS NOTES- Subjective Subjective Complaints of neck pain. He feels sleepy. Objective Vitals/I&O Vital Signs Date Time Temp Pulse Resp B/P (MAP) Pulse Ox O2 Delivery O2 Flow Rate FiO2 06/23/21 07:45 Nasal Cannula 2.0 06/23/21 07:02 94 06/23/21 07:00 97.9 81 18 144/59 (87) 97.9 I & O 06/22/21 06/22/21 06/23/21 15:00 23:00 07:00 Intake Total 900 ml 200 ml 200 ml Output Total 200 ml 0 ml Balance 700 ml 200 ml 200 ml Physical Exam Physical Exam General Appearance - alert and in mild distress Chest - decreased breath sounds at bases Heart - S1 and S2 normal Abdomen - soft, non tender Neurological - alert and oriented Musculoskeletal - generalized weakness, status post neck surgery Extremities - no edema Labs Laboratory Tests Test 06/22/21 10:02 06/22/21 11:13 06/22/21 13:09 06/22/21 15:55 Glucose (Fingerstick) 166 mg/dL (70-99) H 120 mg/dL (70-99) H 108 mg/dL (70-99) H Prothrombin Time 14.7 SEC (11.7-14.0) H Prothrombin Time INR 1.2 (0.8-1.1) H Activated Partial Thromboplast Time 36 SEC (24-38) Test 06/22/21 16:48 06/22/21 20:46 06/23/21 05:10 06/23/21 07:31 Glucose (Fingerstick) 153 mg/dL (70-99) H 170 mg/dL (70-99) H 145 mg/dL (70-99) H White Blood Count 9.8 x10^3/uL (4.0-11.0) Red Blood Count 3.86 x10^6/uL (4.30-5.70) L Hemoglobin 11.0 g/dL (13.0-17.5) L Hematocrit 33.1 % (39.0-53.0) L Mean Corpuscular Volume 86 fL (79-100) Mean Corpuscular Hemoglobin 29 pg (25-35) Mean Corpuscular Hemoglobin Concent 33 g/dL (31-37) Red Cell Distribution Width 16.2 % (11.5-14.5) H Platelet Count 246 x10^3/uL (140-400) Neutrophils (%) (Auto) 75 % (31-73) H Lymphocytes (%) (Auto) 18 % (24-48) L Monocytes (%) (Auto) 5 % (0-9) Eosinophils (%) (Auto) 2 % (0-3) Basophils (%) (Auto) 1 % (0-3) Neutrophils # (Auto) 7.3 x10^3/uL (1.8-7.7) Lymphocytes # (Auto) 1.7 x10^3/uL (1.0-4.8) Monocytes # (Auto) 0.5 x10^3/uL (0.0-1.1) Eosinophils # (Auto) 0.2 x10^3/uL (0.0-0.7) Basophils # (Auto) 0.1 x10^3/uL (0.0-0.2) Sodium Level 131 mmol/L (136-145) L Potassium Level 3.4 mmol/L (3.5-5.1) L Chloride Level 94 mmol/L (98-107) L Carbon Dioxide Level 26 mmol/L (21-32) Anion Gap 11 (6-14) Blood Urea Nitrogen 20 mg/dL (8-26) Creatinine 6.1 mg/dL (0.7-1.3) H Estimated GFR (Cockcroft-Gault) 11.7 BUN/Creatinine Ratio 3 (6-20) L Glucose Level 145 mg/dL (70-99) H Calcium Level 7.4 mg/dL (8.5-10.1) L Total Bilirubin 0.2 mg/dL (0.2-1.0) Aspartate Amino Transferase (AST) 37 U/L (15-37) Alanine Aminotransferase (ALT) 22 U/L (16-63) Alkaline Phosphatase 153 U/L (46-116) H Total Protein 5.8 g/dL (6.4-8.2) L Albumin 2.6 g/dL (3.4-5.0) L Albumin/Globulin Ratio 0.8 (1.0-1.7) L Laboratory Tests 06/23/21 05:10 Laboratory Tests 06/23/21 05:10 Meds Current Medications Medications (Trade) Dose Ordered Sig/Ravinder Route PRN Reason Start Time Stop Time Status Last Admin Dose Admin Amylase/Lipase/ Protease (Zenpep 10,000) 3 cap TIDWMEALS PO 06/22/21 17:00 06/22/21 17:23 Pantoprazole Sodium (Protonix) 40 mg DAILYAC PO 06/22/21 16:30 06/23/21 06:32 Sevelamer Carbonate (Renvela) 800 mg TIDWMEALS PO 06/22/21 17:00 06/22/21 17:24 Trazodone HCl (Desyrel) 100 mg QHS PO 06/22/21 21:00 06/22/21 20:53 Atorvastatin Calcium (Lipitor) 80 mg QHS PO 06/22/21 21:00 06/22/21 20:54 Hydralazine HCl (Apresoline) 100 mg TID PO 06/22/21 14:00 06/22/21 20:55 Insulin Glargine (Lantus Syringe) 24 unit QHS SQ 06/22/21 21:00 06/22/21 21:01 Oxycodone/ Acetaminophen (Percocet 5/325) 2 tab PRN Q4HRS PRN PO MODERATE PAIN, SEVERE PAIN 06/22/21 13:00 06/23/21 06:32 Methocarbamol (Robaxin) 750 mg PRN TID PRN PO MUSCLE SPASMS 06/22/21 13:00 06/23/21 07:42 Docusate Sodium (Colace) 100 mg BID PO 06/22/21 21:00 06/23/21 07:41 Ondansetron HCl (Zofran) 4 mg PRN Q6HRS PRN IVP NAUESA, 1ST CHOICE 06/22/21 13:00 06/22/21 22:13 Cefazolin Sodium (Ancef) 1 gm Q8HRS IVP 06/22/21 14:00 06/22/21 14:26 DC 06/22/21 13:55 Cefazolin Sodium (Ancef) 1 gm Q8H IVP 06/22/21 18:00 06/23/21 10:01 06/23/21 02:08 Potassium Bicarbonate (Potassium Effervescent Tablet) 20 meq 1X ONCE PO 06/22/21 17:30 06/22/21 17:31 DC 06/22/21 17:32 Sodium Chloride 1,000 ml @ 50 mls/hr Q20H IV 06/22/21 17:30 06/22/21 17:28 Assessment Assessment 1. Diabetes mellitus type 2, generally uncontrolled, but currently blood sugars are stable. Last hemoglobin A1c was 9.2. He has diabetic nephropathy and neuropathy. 2. Chronic hypoxic respiratory failure, on oxygen by nasal cannula 2 liters per minute. 3. Chronic obstructive pulmonary disease. 4. Hypokalemia. 5. End-stage renal disease, on hemodialysis. 6. Gastroesophageal reflux disease. 7. Coronary artery disease with history of stent placement. 8. Mixed hyperlipidemia. 9. Chronic pancreatitis. 10. Anemia. 11. Physical deconditioning. 12. Osteoarthritis. 13. Chronic back pain. 14. Cervical spinal stenosis and cervical radiculopathy. Status post posterior cervical hemilaminectomy C5-C6 and C6-C7, cervical laminectomy, C3-C4, C4-C5 with posterior instrumentation and fusion C3-C4 and C4-C5. PLAN: Continue Humalog 6 units subcutaneously t.i.d. with meals. Continue Lantus 24 units subcutaneously at bedtime. I will start him on IV fluids as he is currently not eating. Give potassium chloride 20 mEq x 1 now. He will get hemodialysis Saturday, Saturday, and Saturday and he will get his next dialysis tomorrow. Staff is to call Dr. Riddle for further management of the renal issues as well as potassium. His blood pressure was high earlier, so I have ordered hydralazine 10 mg IV q.4h. p.r.n. for systolic blood pressure more than 160. I have spoken to the patient's mother who was at the bedside about his condition and treatment. Diabetes is well controlled. Hypokalemia improving. Potassium 3.4. ESRD. Hemodialysis today. Status post neck surgery. Okay to discharge whenever okay with Dr. Howe. Plan Plan For more details regarding further plans, please refer to the orders. Justifications for Admission Other Justification TRINA ALDANA MD Jun 23, 2021 09:09
--- NOTE | 2021-06-23 12:27 | PDOC2 ---
CONSULT Date of Consult Date of Consult DATE: 06/23/21 TIME: 12:23 Reason for Consult Reason for Consult: ESRD Referring Physician Referring Physician: JOVAN Identification/Chief Complaint Chief Complaint HAS NECK SURGERY. HAS ESRD ON HD Source Source: Chart review, Patient History of Present Illness Reason for Visit: THIS IS A 55 YR OLD WITH ESRD. ON OP HD ON MWF. HAS A LEFT ARM AV ACCESS FOR HIS DIALYSIS. LABS ARE C/W ESRD. ESRD IS DUE TO DM II AND HTN. HE HAS UNDERGONE SURGERY FOR SEVERE CERVICAL SPINAL STENOSIS Past Medical History Cardiovascular: CAD, HTN, Hyperlipidemia Pulmonary: No pertinent hx GI: GERD, Other Heme/Onc: Anemia NOS, Cancer, Other Hepatobiliary: Other Psych: Anxiety, Other Rheumatologic: No pertinent hx Infectious disease: No pertinent hx Renal/: Chronic renal insuff Endocrine: Diabetes Past Surgical History Past Surgical History: Cholecystectomy, Tonsillectomy, Other Family History Family History: Coronary Artery Disease, Diabetes, Hypertension, Kidney Disease Social History ALCOHOL: other Lives: Alone Current Medications Current Medications Current Medications Cefazolin Sodium 1 gm/Sodium Chloride 1,000 ml @ 1,000 mls/hr 1X ONCE IRR Last administered on 06/22/21at 09:59; Start 06/22/21 at 06:00; Stop 06/22/21 at 06:59; Status DC Fentanyl Citrate (Fentanyl 2ml Vial) 25 mcg PRN Q5MIN PRN IVP MILD PAIN 1-3; Start 06/22/21 at 06:00; Stop 06/23/21 at 05:59; Status DC Fentanyl Citrate (Fentanyl 2ml Vial) 50 mcg PRN Q5MIN PRN IVP MODERATE PAIN 4-6 Last administered on 06/22/21at 13:55; Start 06/22/21 at 06:00; Stop 06/23/21 at 05:59; Status DC Ringer's Solution 1,000 ml @ 30 mls/hr Q24H IV ; Start 06/22/21 at 06:00; Stop 06/22/21 at 17:59; Status DC Prochlorperazine Edisylate (Compazine) 5 mg PACU PRN PRN IVP NAUSEA, MRX1; Start 06/22/21 at 06:00; Stop 06/23/21 at 05:59; Status DC Cefazolin Sodium/ Dextrose 50 ml @ 100 mls/hr 1X PREOP PRN IV PRIOR TO PROCEDURE Last administered on 06/22/21at 09:45; Start 06/22/21 at 06:00; Stop 06/22/21 at 18:00; Status DC Gelatin (Gelfoam Size 100) 1 each STK-MED ONCE .ROUTE Last administered on 06/22/21at 09:59; Start 06/22/21 at 06:45; Stop 06/22/21 at 06:45; Status DC Bupivacaine HCl/ Epinephrine Bitart (Sensorcain-Epi 0.5% Kit) 30 ml STK-MED ONCE .ROUTE Last administered on 06/22/21at 09:59; Start 06/22/21 at 06:45; Stop 06/22/21 at 06:45; Status DC Ketorolac Tromethamine (Toradol Im) 60 mg STK-MED ONCE .ROUTE Last administered on 06/22/21at 09:59; Start 06/22/21 at 06:45; Stop 06/22/21 at 06:45; Status DC Thrombin 20,000 unit STK-MED ONCE TP Last administered on 06/22/21at 09:59; Start 06/22/21 at 06:45; Stop 06/22/21 at 06:45; Status DC Propofol (Diprivan) 200 mg STK-MED ONCE IV ; Start 06/22/21 at 05:16; Stop 06/22/21 at 07:16; Status DC Lidocaine HCl (Lidocaine Pf 2% Vial) 5 ml STK-MED ONCE .ROUTE ; Start 06/22/21 at 05:16; Stop 06/22/21 at 07:16; Status DC Propofol 50 ml @ As Directed STK-MED ONCE IV ; Start 06/22/21 at 05:16; Stop 06/22/21 at 07:16; Status DC Fentanyl Citrate (Fentanyl 2ml Vial) 100 mcg STK-MED ONCE .ROUTE ; Start 06/22/21 at 05:16; Stop 06/22/21 at 07:17; Status DC Succinylcholine Chloride (Anectine) 200 mg STK-MED ONCE .ROUTE ; Start 06/22/21 at 05:17; Stop 06/22/21 at 07:17; Status DC Rocuronium [place] (Zemuron) 50 mg STK-MED ONCE .ROUTE ; Start 06/22/21 at 05:17; Stop 06/22/21 at 07:17; Status DC Midazolam HCl (Versed) 2 mg STK-MED ONCE .ROUTE ; Start 06/22/21 at 05:17; Stop 06/22/21 at 07:17; Status DC Remifentanil HCl (Ultiva) 2 mg STK-MED ONCE IV ; Start 06/22/21 at 05:17; Stop 06/22/21 at 07:18; Status DC Phenylephrine HCl (PHENYLEPHRINE in 0.9% NACL PF) 1 mg STK-MED ONCE IV ; Start 06/22/21 at 05:18; Stop 06/22/21 at 07:19; Status DC Phenylephrine HCl (Ariel-Synephrine Inj) 10 mg STK-MED ONCE .ROUTE ; Start 06/22/21 at 05:18; Stop 06/22/21 at 07:19; Status DC Insulin Human Lispro (HumaLOG VIAL for OP,RR ONLY) 0-10 units PRN Q1HR PRN SQ PER PROTOCOL Last administered on 06/22/21at 08:07; Start 06/22/21 at 07:30; Stop 06/23/21 at 07:29; Status DC Ephedrine Sulfate (ePHEDrine PF IN SALINE SYRINGE) 50 mg STK-MED ONCE IV ; St art 06/22/21 at 05:41; Stop 06/22/21 at 07:41; Status DC Phenylephrine HCl (Ariel-Synephrine Inj) 10 mg STK-MED ONCE .ROUTE ; Start 06/22/21 at 05:43; Stop 06/22/21 at 07:43; Status DC Sodium Chloride 1,000 ml @ 0 mls/hr Q0M IV Last administered on 06/22/21at 07:46; Start 06/22/21 at 07:45; Stop 06/23/21 at 09:42; Status DC Propofol 50 ml @ As Directed STK-MED ONCE IV ; Start 06/22/21 at 08:27; Stop 06/22/21 at 10:27; Status DC Hydromorphone HCl (Dilaudid) 2 mg STK-MED ONCE .ROUTE ; Start 06/22/21 at 09:40; Stop 06/22/21 at 11:40; Status DC Glycopyrrolate (Robinul) 1 mg STK-MED ONCE .ROUTE ; Start 06/22/21 at 09:44; Stop 06/22/21 at 11:44; Status DC Neostigmine [place] (Neostigmine Methylsulfate) 5 mg STK-MED ONCE .ROUTE ; Start 06/22/21 at 09:44; Stop 06/22/21 at 11:45; Status DC Sevoflurane (Ultane) 90 ml STK-MED ONCE IH ; Start 06/22/21 at 09:58; Stop 06/22/21 at 11:58; Status DC Aspirin (Ecotrin) 81 mg DAILY PO ; Start 06/23/21 at 09:00 Baclofen (Lioresal) 5 mg PRN TID PRN PO MUSCLE SPASMS; Start 06/22/21 at 12:45 Clonidine HCl (Catapres Tts-1) 1 patch Sa@0900 TD ; Start 06/24/21 at 09:00 Doxazosin Mesylate (Cardura) 4 mg DAILY PO ; Start 06/22/21 at 14:00 Insulin Human Lispro (HumaLOG) 6 units TIDWMEALS SQ ; Start 06/22/21 at 17:00 Amylase/Lipase/ Protease (Zenpep 10,000) 3 cap TIDWMEALS PO Last administered on 06/22/21at 17:23; Start 06/22/21 at 17:00 Pantoprazole Sodium (Protonix) 40 mg DAILYAC PO Last administered on 06/23/21at 06:32; Start 06/22/21 at 16:30 Sevelamer Carbonate (Renvela) 800 mg TIDWMEALS PO Last administered on 06/22/21at 17:24; Start 06/22/21 at 17:00 Trazodone HCl (Desyrel) 100 mg QHS PO Last administered on 06/22/21at 20:53; Start 06/22/21 at 21:00 Atorvastatin Calcium (Lipitor) 80 mg QHS PO Last administered on 06/22/21at 20:5 4; Start 06/22/21 at 21:00 Hydralazine HCl (Apresoline) 100 mg TID PO Last administered on 06/22/21at 20:55; Start 06/22/21 at 14:00 Insulin Glargine (Lantus Syringe) 24 unit QHS SQ Last administered on 06/22/21at 21:01; Start 06/22/21 at 21:00 Non-Formulary Medication (Omeprazole ) 40 mg DAILY PO ; Start 06/23/21 at 09:00; Status UNV Acetaminophen (Tylenol) 650 mg PRN Q6HRS PRN PO MILD PAIN / TEMP > 100.3'F; Start 06/22/21 at 13:00 Al Hydroxide/Mg Hydroxide (Mylanta Plus Xs) 30 ml PRN Q3HRS PRN PO HEARTBURN / GAS; Start 06/22/21 at 13:00 Calcium Carbonate/ Glycine (Tums) 500 mg PRN Q3HRS PRN PO INDIGESTION; Start 06/22/21 at 13:00 Diphenhydramine HCl (Benadryl) 25 mg PRN Q6HRS PRN PO ITCHING; Start 06/22/21 at 13:00 Naloxone HCl (Narcan) 0.1 mg PRN Q2MIN PRN IV SEE COMMENTS; Start 06/22/21 at 13:00 Sodium Chloride (Normal Saline Flush) 3 ml QSHIFT PRN IV AFTER MEDS AND BLOOD DRAWS; Start 06/22/21 at 13:00 Oxycodone/ Acetaminophen (Percocet 5/325) 1 tab PRN Q4HRS PRN PO MILD PAIN, 1ST CHOICE; Start 06/22/21 at 13:00 Oxycodone/ Acetaminophen (Percocet 5/325) 2 tab PRN Q4HRS PRN PO MODERATE PAIN, SEVERE PAIN Last administered on 06/23/21at 06:32; Start 06/22/21 at 13:00 Methocarbamol (Robaxin) 750 mg PRN TID PRN PO MUSCLE SPASMS Last administered on 06/23/21at 07:42; Start 06/22/21 at 13:00 Docusate Sodium (Colace) 100 mg BID PO Last administered on 06/23/21at 07:41; Start 06/22/21 at 21:00 Magnesium Hydroxide (Milk Of Magnesia) 2,400 mg PRN Q12HR PRN PO CONSTIPATION; Start 06/22/21 at 13:00 Ondansetron HCl (Zofran) 4 mg PRN Q6HRS PRN IVP NAUESA, 1ST CHOICE Last administered on 06/22/21at 22:13; Start 06/22/21 at 13:00 Cefazolin Sodium (Ancef) 1 gm Q8HRS IVP Last administered on 06/22/21at 13:55; Start 06/22/21 at 14:00; Stop 06/22/21 at 14:26; Status DC Fentanyl Citrate (Fentanyl 2ml Vial) 50 mcg PRN Q2HR PRN IVP MODERATE TO SEVERE PAIN; Start 06/22/21 at 13:00 Dextrose (Dextrose 50%-Water Syringe) 12.5 gm PRN Q15MIN PRN IV SEE COMMENTS; Start 06/22/21 at 13:00 Cefazolin Sodium (Ancef) 1 gm Q8H IVP Last administered on 06/23/21at 02:08; Start 06/22/21 at 18:00; Stop 06/23/21 at 10:01; Status DC Cefazolin Sodium (Ancef) 1 gm STK-MED ONCE IVP ; Start 06/22/21 at 13:52; Stop 06/22/21 at 14:26; Status DC Hydralazine HCl (Apresoline Inj) 10 mg PRN Q4HRS PRN IVP ELEVATED BP, SEE COMMENTS; Start 06/22/21 at 17:15 Potassium Bicarbonate (Potassium Effervescent Tablet) 20 meq 1X ONCE PO Last administered on 06/22/21at 17:32; Start 06/22/21 at 17:30; Stop 06/22/21 at 17:31; Status DC Sodium Chloride 1,000 ml @ 50 mls/hr Q20H IV Last administered on 06/22/21at 17:28; Start 06/22/21 at 17:30 Insulin Human Lispro (HumaLOG) 0-8 UNITS BIDBFRMEAL SQ ; Start 06/23/21 at 07:30 Sodium Chloride 1,000 ml @ 1,000 mls/hr Q1H PRN IV hypotension; Start 06/23/21 at 08:00; Stop 06/23/21 at 13:59 Sodium Chloride 1,000 ml @ 400 mls/hr Q2H30M PRN IV PATENCY; Start 06/23/21 at 08:00; Stop 06/23/21 at 19:59 Info (PHARMACY MONITORING -- do not chart) 1 each PRN DAILY PRN MC SEE COMMENTS; Start 06/23/21 at 08:00 Active Scripts Active Pantoprazole Sodium (Pantoprazole Sodium) 40 Mg Tablet.dr 40 Mg PO DAILYAC 30 Days Clonidine Tts-1 (Clonidine) 1 Each Patch.tdwk 1 Patch TD SA@0900 28 Days Baclofen 10 Mg Tablet 5 Mg PO TID PRN Renvela (Sevelamer Carbonate) 800 Mg Tablet 800 Mg PO TIDWMEALS 30 Days Reported Humalog (Insulin Lispro) 100 Unit/1 Ml Vial 6 Unit SQ TIDWMEALS Lantus Solostar (Insulin Glargine,Hum.rec.anlog) 100 Unit/1 Ml Insuln.pen 24 Unit SQ QHS Omeprazole 40 Mg Capsule.dr 40 Mg PO DAILY Zenpep Dr 10,000 Units Capsule (Lipase/Protease/Amylase) 1 Each Capsule.dr 3 Cap PO TIDWMEALS Doxazosin Mesylate 4 Mg Tablet 1 Tab PO DAILY Trazodone Hcl 100 Mg Tablet 1 Tab PO QHS Hydrocodone-Acetamin 7.5-325 (Hydrocodone/Acetaminophen) 1 Each Tablet 7.5-325 Mg PO Q6HRS PRN Hydralazine Hcl 100 Mg Tablet 1 Tab PO TID Aspir 81 (Aspirin) 81 Mg Tablet. 1 Tab PO DAILY Atorvastatin Calcium 80 Mg Tablet 1 Tab PO DAILY Allergies Allergies: Coded Allergies: morphine (Verified Allergy, Intermediate, Itching, 06/29/20) lisinopril (Verified Adverse Reaction, Intermediate, Dry Cough, 04/17/21) Dry Cough ROS General: YES: Fatigue PSYCHOLOGICAL ROS: YES: Anxiety Eyes: Yes Decreased vision HEENT: YES: Heacaches Respiratory: YES: Cough, Shortness of breath Gastrointestinal: Yes Constipation Genitourinary: YES Other (ANURIA) Musculoskeletal: Yes Joint Stiffness, Yes Muscular Weakness Neurological: Yes Weakness, Yes Other (NECK PAIN) Skin: Yes Dry Skin, Yes Eczema Physical Exam General: Alert, Oriented X3, Cooperative, No acute distress HEENT: Atraumatic, PERRLA Lungs: Clear to auscultation, Normal air movement Heart: Normal S1 Abdomen: Normal bowel sounds, Soft, No tenderness Extremities: No cyanosis Neuro: Normal speech Psych/Mental Status: Mental status NL, Mood NL MUSCULOSKELETAL: No joint tenderness, No deformity, No swelling Vitals VITALS Vital Signs Date Time Temp Pulse Resp B/P (MAP) Pulse Ox O2 Delivery O2 Flow Rate FiO2 06/23/21 07:45 Nasal Cannula 2.0 06/23/21 07:02 94 06/23/21 07:00 97.9 81 18 144/59 (87) 97.9 Labs Labs Laboratory Tests Test 06/22/21 06:49 06/22/21 07:35 06/22/21 10:02 06/22/21 11:13 Glucose (Fingerstick) 255 mg/dL (70-99) 166 mg/dL (70-99) 120 mg/dL (70-99) Sodium Level 131 mmol/L (136-145) Potassium Level 3.0 mmol/L (3.5-5.1) Chloride Level 91 mmol/L (98-107) Carbon Dioxide Level 27 mmol/L (21-32) Anion Gap 13 (6-14) Blood Urea Nitrogen 15 mg/dL (8-26) Creatinine 4.5 mg/dL (0.7-1.3) Estimated GFR (Cockcroft-Gault) 16.6 Glucose Level 263 mg/dL (70-99) Calcium Level 8.5 mg/dL (8.5-10.1) Test 06/22/21 13:09 06/22/21 15:55 06/22/21 16:48 06/22/21 20:46 Glucose (Fingerstick) 108 mg/dL (70-99) 153 mg/dL (70-99) 170 mg/dL (70-99) Prothrombin Time 14.7 SEC (11.7-14.0) Prothromb Time International Ratio 1.2 (0.8-1.1) Activated Partial Thromboplast Time 36 SEC (24-38) Test 06/23/21 05:10 06/23/21 07:31 06/23/21 12:18 White Blood Count 9.8 x10^3/uL (4.0-11.0) Red Blood Count 3.86 x10^6/uL (4.30-5.70) Hemoglobin 11.0 g/dL (13.0-17.5) Hematocrit 33.1 % (39.0-53.0) Mean Corpuscular Volume 86 fL (79-100) Mean Corpuscular Hemoglobin 29 pg (25-35) Mean Corpuscular Hemoglobin Concent 33 g/dL (31-37) Red Cell Distribution Width 16.2 % (11.5-14.5) Platelet Count 246 x10^3/uL (140-400) Neutrophils (%) (Auto) 75 % (31-73) Lymphocytes (%) (Auto) 18 % (24-48) Monocytes (%) (Auto) 5 % (0-9) Eosinophils (%) (Auto) 2 % (0-3) Basophils (%) (Auto) 1 % (0-3) Neutrophils # (Auto) 7.3 x10^3/uL (1.8-7.7) Lymphocytes # (Auto) 1.7 x10^3/uL (1.0-4.8) Monocytes # (Auto) 0.5 x10^3/uL (0.0-1.1) Eosinophils # (Auto) 0.2 x10^3/uL (0.0-0.7) Basophils # (Auto) 0.1 x10^3/uL (0.0-0.2) Sodium Level 131 mmol/L (136-145) Potassium Level 3.4 mmol/L (3.5-5.1) Chloride Level 94 mmol/L (98-107) Carbon Dioxide Level 26 mmol/L (21-32) Anion Gap 11 (6-14) Blood Urea Nitrogen 20 mg/dL (8-26) Creatinine 6.1 mg/dL (0.7-1.3) Estimated GFR (Cockcroft-Gault) 11.7 BUN/Creatinine Ratio 3 (6-20) Glucose Level 145 mg/dL (70-99) Calcium Level 7.4 mg/dL (8.5-10.1) Total Bilirubin 0.2 mg/dL (0.2-1.0) Aspartate Amino Transf (AST/SGOT) 37 U/L (15-37) Alanine Aminotransferase (ALT/SGPT) 22 U/L (16-63) Alkaline Phosphatase 153 U/L (46-116) Total Protein 5.8 g/dL (6.4-8.2) Albumin 2.6 g/dL (3.4-5.0) Albumin/Globulin Ratio 0.8 (1.0-1.7) Glucose (Fingerstick) 145 mg/dL (70-99) 101 mg/dL (70-99) Laboratory Tests Test 06/22/21 13:09 06/22/21 15:55 06/22/21 16:48 06/22/21 20:46 Glucose (Fingerstick) 108 mg/dL (70-99) 153 mg/dL (70-99) 170 mg/dL (70-99) Prothrombin Time 14.7 SEC (11.7-14.0) Prothromb Time International Ratio 1.2 (0.8-1.1) Activated Partial Thromboplast Time 36 SEC (24-38) Test 06/23/21 05:10 06/23/21 07:31 06/23/21 12:18 White Blood Count 9.8 x10^3/uL (4.0-11.0) Red Blood Count 3.86 x10^6/uL (4.30-5.70) Hemoglobin 11.0 g/dL (13.0-17.5) Hematocrit 33.1 % (39.0-53.0) Mean Corpuscular Volume 86 fL (79-100) Mean Corpuscular Hemoglobin 29 pg (25-35) Mean Corpuscular Hemoglobin Concent 33 g/dL (31-37) Red Cell Distribution Width 16.2 % (11.5-14.5) Platelet Count 246 x10^3/uL (140-400) Neutrophils (%) (Auto) 75 % (31-73) Lymphocytes (%) (Auto) 18 % (24-48) Monocytes (%) (Auto) 5 % (0-9) Eosinophils (%) (Auto) 2 % (0-3) Basophils (%) (Auto) 1 % (0-3) Neutrophils # (Auto) 7.3 x10^3/uL (1.8-7.7) Lymphocytes # (Auto) 1.7 x10^3/uL (1.0-4.8) Monocytes # (Auto) 0.5 x10^3/uL (0.0-1.1) Eosinophils # (Auto) 0.2 x10^3/uL (0.0-0.7) Basophils # (Auto) 0.1 x10^3/uL (0.0-0.2) Sodium Level 131 mmol/L (136-145) Potassium Level 3.4 mmol/L (3.5-5.1) Chloride Level 94 mmol/L (98-107) Carbon Dioxide Level 26 mmol/L (21-32) Anion Gap 11 (6-14) Blood Urea Nitrogen 20 mg/dL (8-26) Creatinine 6.1 mg/dL (0.7-1.3) Estimated GFR (Cockcroft-Gault) 11.7 BUN/Creatinine Ratio 3 (6-20) Glucose Level 145 mg/dL (70-99) Calcium Level 7.4 mg/dL (8.5-10.1) Total Bilirubin 0.2 mg/dL (0.2-1.0) Aspartate Amino Transf (AST/SGOT) 37 U/L (15-37) Alanine Aminotransferase (ALT/SGPT) 22 U/L (16-63) Alkaline Phosphatase 153 U/L (46-116) Total Protein 5.8 g/dL (6.4-8.2) Albumin 2.6 g/dL (3.4-5.0) Albumin/Globulin Ratio 0.8 (1.0-1.7) Glucose (Fingerstick) 145 mg/dL (70-99) 101 mg/dL (70-99) Assessment/Plan Assessment/Plan IMP [id number] ARM AV ACCESS MILD HYPOKALEMIA S/P CERVICAL LAMINECTOMY ANEMIA OF ESRD DM II HTN PLAN [facility] NEEDED HD TODAY UF TO TW WILL FOLLOW SARAH VILLEGAS MD Jun 23, 2021 12:27
[2021-06-23] MEDS: IV NORMAL SALINE 1000ML BAG 1,000 ML IV SCH ×2 (13:30→17:14)
[2021-06-23 15:00] VITALS: BP 153/68
--- NOTE | 2021-06-23 15:13 | PDOC ---
PROGRESS NOTES Date of Service DATE: 06/23/21 TIME: 15:09 Subjective Subjective Patient seen at 1155 POD #1 S/P cervical laminectomy on dialysis c/o neck pain mild tingling in fingers Objective Objective Vital Signs Date Time Temp Pulse Resp B/P (MAP) Pulse Ox O2 Delivery O2 Flow Rate FiO2 06/23/21 14:24 93 153/68 06/23/21 12:52 94 Nasal Cannula 2.0 06/23/21 07:00 97.9 18 97.9 Intake and Output 06/23/21 07:00 Intake Total 1300 ml Output Total 200 ml Balance 1100 ml Intake Oral 400 ml IV Total 900 ml Output Urine Total 150 ml Estimated Blood Loss 50 ml Physical Exam General: Alert, Cooperative, No acute distress MUSCULOSKELETAL: Other (CORLEY) Neuro: Normal speech Skin: Other (dressing intact) Plan Plan of Care PT encouraged increased activity as tolerated possible dc tomorrow Comment Review of Relevant I have reviewed the following items donell (where applicable) has been applied. Labs Laboratory Tests Test 06/22/21 06:49 06/22/21 07:35 06/22/21 10:02 06/22/21 11:13 Glucose (Fingerstick) 255 mg/dL (70-99) 166 mg/dL (70-99) 120 mg/dL (70-99) Sodium Level 131 mmol/L (136-145) Potassium Level 3.0 mmol/L (3.5-5.1) Chloride Level 91 mmol/L (98-107) Carbon Dioxide Level 27 mmol/L (21-32) Anion Gap 13 (6-14) Blood Urea Nitrogen 15 mg/dL (8-26) Creatinine 4.5 mg/dL (0.7-1.3) Estimated GFR (Cockcroft-Gault) 16.6 Glucose Level 263 mg/dL (70-99) Calcium Level 8.5 mg/dL (8.5-10.1) Test 06/22/21 13:09 06/22/21 15:55 06/22/21 16:48 06/22/21 20:46 Glucose (Fingerstick) 108 mg/dL (70-99) 153 mg/dL (70-99) 170 mg/dL (70-99) Prothrombin Time 14.7 SEC (11.7-14.0) Prothromb Time International Ratio 1.2 (0.8-1.1) Activated Partial Thromboplast Time 36 SEC (24-38) Test 06/23/21 05:10 06/23/21 07:31 06/23/21 12:18 White Blood Count 9.8 x10^3/uL (4.0-11.0) Red Blood Count 3.86 x10^6/uL (4.30-5.70) Hemoglobin 11.0 g/dL (13.0-17.5) Hematocrit 33.1 % (39.0-53.0) Mean Corpuscular Volume 86 fL (79-100) Mean Corpuscular Hemoglobin 29 pg (25-35) Mean Corpuscular Hemoglobin Concent 33 g/dL (31-37) Red Cell Distribution Width 16.2 % (11.5-14.5) Platelet Count 246 x10^3/uL (140-400) Neutrophils (%) (Auto) 75 % (31-73) Lymphocytes (%) (Auto) 18 % (24-48) Monocytes (%) (Auto) 5 % (0-9) Eosinophils (%) (Auto) 2 % (0-3) Basophils (%) (Auto) 1 % (0-3) Neutrophils # (Auto) 7.3 x10^3/uL (1.8-7.7) Lymphocytes # (Auto) 1.7 x10^3/uL (1.0-4.8) Monocytes # (Auto) 0.5 x10^3/uL (0.0-1.1) Eosinophils # (Auto) 0.2 x10^3/uL (0.0-0.7) Basophils # (Auto) 0.1 x10^3/uL (0.0-0.2) Sodium Level 131 mmol/L (136-145) Potassium Level 3.4 mmol/L (3.5-5.1) Chloride Level 94 mmol/L (98-107) Carbon Dioxide Level 26 mmol/L (21-32) Anion Gap 11 (6-14) Blood Urea Nitrogen 20 mg/dL (8-26) Creatinine 6.1 mg/dL (0.7-1.3) Estimated GFR (Cockcroft-Gault) 11.7 BUN/Creatinine Ratio 3 (6-20) Glucose Level 145 mg/dL (70-99) Calcium Level 7.4 mg/dL (8.5-10.1) Total Bilirubin 0.2 mg/dL (0.2-1.0) Aspartate Amino Transf (AST/SGOT) 37 U/L (15-37) Alanine Aminotransferase (ALT/SGPT) 22 U/L (16-63) Alkaline Phosphatase 153 U/L (46-116) Total Protein 5.8 g/dL (6.4-8.2) Albumin 2.6 g/dL (3.4-5.0) Albumin/Globulin Ratio 0.8 (1.0-1.7) Glucose (Fingerstick) 145 mg/dL (70-99) 101 mg/dL (70-99) Laboratory Tests Test 06/22/21 15:55 06/22/21 16:48 06/22/21 20:46 06/23/21 05:10 Prothrombin Time 14.7 SEC (11.7-14.0) Prothromb Time International Ratio 1.2 (0.8-1.1) Activated Partial Thromboplast Time 36 SEC (24-38) Glucose (Fingerstick) 153 mg/dL (70-99) 170 mg/dL (70-99) White Blood Count 9.8 x10^3/uL (4.0-11.0) Red Blood Count 3.86 x10^6/uL (4.30-5.70) Hemoglobin 11.0 g/dL (13.0-17.5) Hematocrit 33.1 % (39.0-53.0) Mean Corpuscular Volume 86 fL (79-100) Mean Corpuscular Hemoglobin 29 pg (25-35) Mean Corpuscular Hemoglobin Concent 33 g/dL (31-37) Red Cell Distribution Width 16.2 % (11.5-14.5) Platelet Count 246 x10^3/uL (140-400) Neutrophils (%) (Auto) 75 % (31-73) Lymphocytes (%) (Auto) 18 % (24-48) Monocytes (%) (Auto) 5 % (0-9) Eosinophils (%) (Auto) 2 % (0-3) Basophils (%) (Auto) 1 % (0-3) Neutrophils # (Auto) 7.3 x10^3/uL (1.8-7.7) Lymphocytes # (Auto) 1.7 x10^3/uL (1.0-4.8) Monocytes # (Auto) 0.5 x10^3/uL (0.0-1.1) Eosinophils # (Auto) 0.2 x10^3/uL (0.0-0.7) Basophils # (Auto) 0.1 x10^3/uL (0.0-0.2) Sodium Level 131 mmol/L (136-145) Potassium Level 3.4 mmol/L (3.5-5.1) Chloride Level 94 mmol/L (98-107) Carbon Dioxide Level 26 mmol/L (21-32) Anion Gap 11 (6-14) Blood Urea Nitrogen 20 mg/dL (8-26) Creatinine 6.1 mg/dL (0.7-1.3) Estimated GFR (Cockcroft-Gault) 11.7 BUN/Creatinine Ratio 3 (6-20) Glucose Level 145 mg/dL (70-99) Calcium Level 7.4 mg/dL (8.5-10.1) Total Bilirubin 0.2 mg/dL (0.2-1.0) Aspartate Amino Transf (AST/SGOT) 37 U/L (15-37) Alanine Aminotransferase (ALT/SGPT) 22 U/L (16-63) Alkaline Phosphatase 153 U/L (46-116) Total Protein 5.8 g/dL (6.4-8.2) Albumin 2.6 g/dL (3.4-5.0) Albumin/Globulin Ratio 0.8 (1.0-1.7) Test 06/23/21 07:31 06/23/21 12:18 Glucose (Fingerstick) 145 mg/dL (70-99) 101 mg/dL (70-99) Medications Current Medications Cefazolin Sodium 1 gm/Sodium Chloride 1,000 ml @ 1,000 mls/hr 1X ONCE IRR Last administered on 06/22/21at 09:59; Start 06/22/21 at 06:00; Stop 06/22/21 at 06:59; Status DC Fentanyl Citrate (Fentanyl 2ml Vial) 25 mcg PRN Q5MIN PRN IVP MILD PAIN 1-3; Start 06/22/21 at 06:00; Stop 06/23/21 at 05:59; Status DC Fentanyl Citrate (Fentanyl 2ml Vial) 50 mcg PRN Q5MIN PRN IVP MODERATE PAIN 4-6 Last administered on 06/22/21at 13:55; Start 06/22/21 at 06:00; Stop 06/23/21 at 05:59; Status DC Ringer's Solution 1,000 ml @ 30 mls/hr Q24H IV ; Start 06/22/21 at 06:00; Stop 06/22/21 at 17:59; Status DC Prochlorperazine Edisylate (Compazine) 5 mg PACU PRN PRN IVP NAUSEA, MRX1; Start 06/22/21 at 06:00; Stop 06/23/21 at 05:59; Status DC Cefazolin Sodium/ Dextrose 50 ml @ 100 mls/hr 1X PREOP PRN IV PRIOR TO PROCEDURE Last administered on 06/22/21at 09:45; Start 06/22/21 at 06:00; Stop 06/22/21 at 18:00; Status DC Gelatin (Gelfoam Size 100) 1 each STK-MED ONCE .ROUTE Last administered on 06/22/21at 09:59; Start 06/22/21 at 06:45; Stop 06/22/21 at 06:45; Status DC Bupivacaine HCl/ Epinephrine Bitart (Sensorcain-Epi 0.5% Kit) 30 ml STK-MED ONCE .ROUTE Last administered on 06/22/21at 09:59; Start 06/22/21 at 06:45; Stop 06/22/21 at 06:45; Status DC Ketorolac Tromethamine (Toradol Im) 60 mg STK-MED ONCE .ROUTE Last administered on 06/22/21at 09:59; Start 06/22/21 at 06:45; Stop 06/22/21 at 06:45; Status DC Thrombin 20,000 unit STK-MED ONCE TP Last administered on 06/22/21at 09:59; Start 06/22/21 at 06:45; Stop 06/22/21 at 06:45; Status DC Propofol (Diprivan) 200 mg STK-MED ONCE IV ; Start 06/22/21 at 05:16; Stop 06/22/21 at 07:16; Status DC Lidocaine HCl (Lidocaine Pf 2% Vial) 5 ml STK-MED ONCE .ROUTE ; Start 06/22/21 at 05:16; Stop 06/22/21 at 07:16; Status DC Propofol 50 ml @ As Directed STK-MED ONCE IV ; Start 06/22/21 at 05:16; Stop 06/22/21 at 07:16; Status DC Fentanyl Citrate (Fentanyl 2ml Vial) 100 mcg STK-MED ONCE .ROUTE ; Start 06/22/21 at 05:16; Stop 06/22/21 at 07:17; Status DC Succinylcholine Chloride (Anectine) 200 mg STK-MED ONCE .ROUTE ; Start 06/22/21 at 05:17; Stop 06/22/21 at 07:17; Status DC Rocuronium Monroe (Zemuron) 50 mg STK-MED ONCE .ROUTE ; Start 06/22/21 at 05:17; Stop 06/22/21 at 07:17; Status DC Midazolam HCl (Versed) 2 mg STK-MED ONCE .ROUTE ; Start 06/22/21 at 05:17; Stop 06/22/21 at 07:17; Status DC Remifentanil HCl (Ultiva) 2 mg STK-MED ONCE IV ; Start 06/22/21 at 05:17; Stop 06/22/21 at 07:18; Status DC Phenylephrine HCl (PHENYLEPHRINE in 0.9% NACL PF) 1 mg STK-MED ONCE IV ; Start 06/22/21 at 05:18; Stop 06/22/21 at 07:19; Status DC Phenylephrine HCl (Ariel-Synephrine Inj) 10 mg STK-MED ONCE .ROUTE ; Start 06/22/21 at 05:18; Stop 06/22/21 at 07:19; Status DC Insulin Human Lispro (HumaLOG VIAL for OP,RR ONLY) 0-10 units PRN Q1HR PRN SQ PER PROTOCOL Last administered on 06/22/21at 08:07; Start 06/22/21 at 07:30; Stop 06/23/21 at 07:29; Status DC Ephedrine Sulfate (ePHEDrine PF IN SALINE SYRINGE) 50 mg STK-MED ONCE IV ; Start 06/22/21 at 05:41; Stop 06/22/21 at 07:41; Status DC Phenylephrine HCl (Ariel-Synephrine Inj) 10 mg STK-MED ONCE .ROUTE ; Start 06/22/21 at 05:43; Stop 06/22/21 at 07:43; Status DC Sodium Chloride 1,000 ml @ 0 mls/hr Q0M IV Last administered on 06/22/21at 07:46; Start 06/22/21 at 07:45; Stop 06/23/21 at 09:42; Status DC Propofol 50 ml @ As Directed STK-MED ONCE IV ; Start 06/22/21 at 08:27; Stop 06/22/21 at 10:27; Status DC Hydromorphone HCl (Dilaudid) 2 mg STK-MED ONCE .ROUTE ; Start 06/22/21 at 09:40; Stop 06/22/21 at 11:40; Status DC Glycopyrrolate (Robinul) 1 mg STK-MED ONCE .ROUTE ; Start 06/22/21 at 09:44; Stop 06/22/21 at 11:44; Status DC Neostigmine Monroe (Neostigmine Methylsulfate) 5 mg STK-MED ONCE .ROUTE ; Start 06/22/21 at 09:44; Stop 06/22/21 at 11:45; Status DC Sevoflurane (Ultane) 90 ml STK-MED ONCE IH ; Start 06/22/21 at 09:58; Stop 06/22/21 at 11:58; Status DC Aspirin (Ecotrin) 81 mg DAILY PO ; Start 06/23/21 at 09:00 Baclofen (Lioresal) 5 mg PRN TID PRN PO MUSCLE SPASMS; Start 06/22/21 at 12:45 Clonidine HCl (Catapres Tts-1) 1 patch Sa@0900 TD ; Start 06/24/21 at 09:00 Doxazosin Mesylate (Cardura) 4 mg DAILY PO ; Start 06/22/21 at 14:00 Insulin Human Lispro (HumaLOG) 6 units TIDWMEALS SQ ; Start 06/22/21 at 17:00 Amylase/Lipase/ Protease (Zenpep 10,000) 3 cap TIDWMEALS PO Last administered on 06/23/21at 12:22; Start 06/22/21 at 17:00 Pantoprazole Sodium (Protonix) 40 mg DAILYAC PO Last administered on 06/23/21at 06:32; Start 06/22/21 at 16:30 Sevelamer Carbonate (Renvela) 800 mg TIDWMEALS PO Last administered on 06/23/21at 12:22; Start 06/22/21 at 17:00 Trazodone HCl (Desyrel) 100 mg QHS PO Last administered on 06/22/21at 20:53; Start 06/22/21 at 21:00 Atorvastatin Calcium (Lipitor) 80 mg QHS PO Last administered on 06/22/21at 20:54; Start 06/22/21 at 21:00 Hydralazine HCl (Apresoline) 100 mg TID PO Last administered on 06/23/21at 14:24; Start 06/22/21 at 14:00 Insulin Glargine (Lantus Syringe) 24 unit QHS SQ Last administered on 06/22/21at 21:01; Start 06/22/21 at 21:00 Non-Formulary Medication (Omeprazole ) 40 mg DAILY PO ; Start 06/23/21 at 09:00; Status UNV Acetaminophen (Tylenol) 650 mg PRN Q6HRS PRN PO MILD PAIN / TEMP > 100.3'F; Start 06/22/21 at 13:00 Al Hydroxide/Mg Hydroxide (Mylanta Plus Xs) 30 ml PRN Q3HRS PRN PO HEARTBURN / GAS; Start 06/22/21 at 13:00 Calcium Carbonate/ Glycine (Tums) 500 mg PRN Q3HRS PRN PO INDIGESTION; Start 06/22/21 at 13:00 Diphenhydramine HCl (Benadryl) 25 mg PRN Q6HRS PRN PO ITCHING; Start 06/22/21 at 13:00 Naloxone HCl (Narcan) 0.1 mg PRN Q2MIN PRN IV SEE COMMENTS; Start 06/22/21 at 13:00 Sodium Chloride (Normal Saline Flush) 3 ml QSHIFT PRN IV AFTER MEDS AND BLOOD DRAWS; Start 06/22/21 at 13:00 Oxycodone/ Acetaminophen (Percocet 5/325) 1 tab PRN Q4HRS PRN PO MILD PAIN, 1ST CHOICE; Start 06/22/21 at 13:00 Oxycodone/ Acetaminophen (Percocet 5/325) 2 tab PRN Q4HRS PRN PO MODERATE PAIN, SEVERE PAIN Last administered on 06/23/21at 12:22; Start 06/22/21 at 13:00 Methocarbamol (Robaxin) 750 mg PRN TID PRN PO MUSCLE SPASMS Last administered on 06/23/21at 14:22; Start 06/22/21 at 13:00 Docusate Sodium (Colace) 100 mg BID PO Last administered on 06/23/21at 07:41; Start 06/22/21 at 21:00 Magnesium Hydroxide (Milk Of Magnesia) 2,400 mg PRN Q12HR PRN PO CONSTIPATION; Start 06/22/21 at 13:00 Ondansetron HCl (Zofran) 4 mg PRN Q6HRS PRN IVP NAUESA, 1ST CHOICE Last administered on 06/22/21at 22:13; Start 06/22/21 at 13:00 Cefazolin Sodium (Ancef) 1 gm Q8HRS IVP Last administered on 06/22/21at 13:55; Start 06/22/21 at 14:00; Stop 06/22/21 at 14:26; Status DC Fentanyl Citrate (Fentanyl 2ml Vial) 50 mcg PRN Q2HR PRN IVP MODERATE TO SEVERE PAIN; Start 06/22/21 at 13:00 Dextrose (Dextrose 50%-Water Syringe) 12.5 gm PRN Q15MIN PRN IV SEE COMMENTS; Start 06/22/21 at 13:00 Cefazolin Sodium (Ancef) 1 gm Q8H IVP Last administered on 06/23/21at 12:25; Start 06/22/21 at 18:00; Stop 06/23/21 at 10:01; Status DC Cefazolin Sodium (Ancef) 1 gm STK-MED ONCE IVP ; Start 06/22/21 at 13:52; Stop 06/22/21 at 14:26; Status DC Hydralazine HCl (Apresoline Inj) 10 mg PRN Q4HRS PRN IVP ELEVATED BP, SEE COMMENTS; Start 06/22/21 at 17:15 Potassium Bicarbonate (Potassium Effervescent Tablet) 20 meq 1X ONCE PO Last administered on 06/22/21at 17:32; Start 06/22/21 at 17:30; Stop 06/22/21 at 17:31; Status DC Sodium Chloride 1,000 ml @ 50 mls/hr Q20H IV Last administered on 06/22/21at 17:28; Start 06/22/21 at 17:30 Insulin Human Lispro (HumaLOG) 0-8 UNITS BIDBFRMEAL SQ ; Start 06/23/21 at 07:30 Sodium Chloride 1,000 ml @ 1,000 mls/hr Q1H PRN IV hypotension; Start 06/23/21 at 08:00; Stop 06/23/21 at 13:59; Status DC Sodium Chloride 1,000 ml @ 400 mls/hr Q2H30M PRN IV PATENCY; Start 06/23/21 at 08:00; Stop 06/23/21 at 19:59 Info (PHARMACY MONITORING -- do not chart) 1 each PRN DAILY PRN MC SEE COMMENTS; Start 06/23/21 at 08:00 Active Scripts Active Pantoprazole Sodium (Pantoprazole Sodium) 40 Mg Tablet. 40 Mg PO DAILYAC 30 Days Clonidine Tts-1 (Clonidine) 1 Each Patch.tdwk 1 Patch TD SA@0900 28 Days Baclofen 10 Mg Tablet 5 Mg PO TID PRN Renvela (Sevelamer Carbonate) 800 Mg Tablet 800 Mg PO TIDWMEALS 30 Days Reported Humalog (Insulin Lispro) 100 Unit/1 Ml Vial 6 Unit SQ TIDWMEALS Lantus Solostar (Insulin Glargine,Hum.rec.anlog) 100 Unit/1 Ml Insuln.pen 24 Unit SQ QHS Omeprazole 40 Mg Capsule. 40 Mg PO DAILY Zenpep 10,000 Units Capsule (Lipase/Protease/Amylase) 1 Each Capsule. 3 Cap PO TIDWMEALS Doxazosin Mesylate 4 Mg Tablet 1 Tab PO DAILY Trazodone Hcl 100 Mg Tablet 1 Tab PO QHS Hydrocodone-Acetamin 7.5-325 (Hydrocodone/Acetaminophen) 1 Each Tablet 7.5-325 Mg PO Q6HRS PRN Hydralazine Hcl 100 Mg Tablet 1 Tab PO TID Aspir 81 (Aspirin) 81 Mg Tablet. 1 Tab PO DAILY Atorvastatin Calcium 80 Mg Tablet 1 Tab PO DAILY Vitals/I & O Vital Sign - Last 24 Hours 06/22/21 06/22/21 06/22/21 06/22/21 15:15 15:45 16:15 17:15 Temp 97.2 98.0 97.3 97.2 98.0 97.3 Pulse 74 80 Resp 20 18 18 B/P (MAP) 114/66 (82) 120/60 (80) 109/58 (75) 118/65 (82) Pulse Ox 95 97 95 O2 Delivery Nasal Cannula Nasal Cannula Nasal Cannula Nasal Cannula 06/22/21 06/22/21 06/22/21 06/22/21 17:23 17:49 19:00 20:30 Temp 97.8 97.8 Pulse 90 Resp 18 B/P (MAP) 113/63 (80) Pulse Ox 94 94 97 O2 Delivery Nasal Cannula Nasal Cannula Nasal Cannula O2 Flow Rate 2.0 2.0 2.0 06/22/21 06/22/21 06/22/21 06/22/21 20:55 20:56 21:26 23:00 Temp 97.7 97.7 Pulse 87 79 Resp 18 16 B/P (MAP) 131/50 145/60 (88) Pulse Ox 94 91 O2 Delivery Nasal Cannula Nasal Cannula O2 Flow Rate 2.0 2.0 06/23/21 06/23/21 06/23/21 06/23/21 03:00 06:32 07:00 07:02 Temp 98.2 97.9 98.2 97.9 Pulse 78 81 Resp 10 18 18 B/P (MAP) 135/59 (84) 144/59 (87) Pulse Ox 94 94 91 94 O2 Delivery Nasal Cannula Nasal Cannula Nasal Cannula O2 Flow Rate 2.0 2.0 06/23/21 06/23/21 06/23/21 06/23/21 07:45 12:22 12:52 14:24 Pulse 93 B/P (MAP) 153/68 Pulse Ox 94 94 O2 Delivery Nasal Cannula Nasal Cannula Nasal Cannula O2 Flow Rate 2.0 2.0 2.0 Intake and Output 06/22/21 06/22/21 06/23/21 15:00 23:00 07:00 Intake Total 900 ml 200 ml 200 ml Output Total 200 ml 0 ml Balance 700 ml 200 ml 200 ml Justifications for Admission Other Justification GEOVANNY SERRANO [employer] Jun 23, 2021 15:13
[2021-06-23] MEDS: fentaNYL PF VIAL 100 MCG/2 ML VIAL IVP PRN ×2 (15:16→20:26)
[2021-06-23 19:00] VITALS: BP 152/62
--- NOTE | 2021-06-23 19:01 | NUR ---
Patient has not voided during my shift today but stated he did not feel like he had to. He is a dialysis patient who was also dialyzed today with 3L taken off. Normally he urinates roughly 2-3 times a day per his report in usually small amounts. Bladder scan performed which showed only 57 ml of urine in his bladder. No distention noted or pain upon palpitation. Oncoming shift notified who will continue to monitor.
[2021-06-23] MEDS: ATORVASTATIN CALCIUM 40 MG TABLET. PO SCH (20:26)
[2021-06-23] MEDS: traZODone 100 MG TABLET. PO SCH (20:26)
[2021-06-23] MEDS: INSULIN GLARGINE SYRINGE. SQ SCH (20:35)
[2021-06-23 23:00] VITALS: BP 141/71
[2021-06-24 03:00] VITALS: BP 171/69
[2021-06-24 06:54] VITALS: BP 153/63
[2021-06-24] MEDS: INSULIN LISPRO 300 UNITS/3 ML VIAL. SQ SCH ×3 (07:30→16:15)
[2021-06-24] MEDS: DEXTROSE 50% 25 GM / 50ML DISP.SYRIN. IV PRN ×3 (07:39→16:00)
[2021-06-24] MEDS ORDERED: cloNIDine TTS-1 1 PATCH PATCH.TDWK TD SCH (09:00)
[2021-06-24] MEDS: DOXAZOSIN MESYLATE 4 MG TABLET. PO SCH (09:01)
[2021-06-24] MEDS: ASPIRIN ENTERIC COATED 81 MG TABLET.DR. PO SCH (09:02)
[2021-06-24] MEDS: LIPASE/PROTEAS/AMYLAS 10/32/42 CAPSULE.DR. PO SCH ×3 (09:02→16:52)
[2021-06-24] MEDS: PANTOPRAZOLE 40 MG TABLET.DR. PO SCH (09:02)
[2021-06-24] MEDS: DOCUSATE SODIUM 100 MG CAPSULE. PO SCH ×2 (09:02→21:07)
[2021-06-24] MEDS: SEVELAMER CARBONATE 800 MG TABLET. PO SCH ×3 (09:02→16:52)
--- NOTE | 2021-06-24 10:25 | PDOC ---
IM PROGRESS NOTES- Subjective Subjective Patient is not eating. He declined [facility] services. His blood sugar dropped to 31 and he was given IV D50 x1. He denies any pain or dyspnea. He is not speaking much. He states that he is not eating because he feels "throaty". Him about his neck and he says that it feels throaty. He did not eat his breakfast. Objective Vitals/I&O Vital Signs Date Time Temp Pulse Resp B/P (MAP) Pulse Ox O2 Delivery O2 Flow Rate FiO2 06/24/21 09:02 90 153/63 06/24/21 08:00 Nasal Cannula 2.0 06/24/21 06:54 97.9 16 90 97.9 I & O 06/23/21 06/23/21 06/24/21 15:00 23:00 07:00 Intake Total 200 ml 270 ml Balance 200 ml 270 ml Physical Exam Physical Exam General Appearance - alert and in no distress Chest - decreased breath sounds at bases Heart - S1 and S2 normal Abdomen - soft, non tender Neurological - alert and oriented Musculoskeletal - generalized weakness Extremities - no edema Labs Laboratory Tests Test 06/23/21 12:18 06/23/21 16:42 06/23/21 20:15 06/24/21 07:33 Glucose (Fingerstick) 101 mg/dL (70-99) H 154 mg/dL (70-99) H 160 mg/dL (70-99) H 31 mg/dL (70-99) *L Test 06/24/21 07:42 Glucose (Fingerstick) 165 mg/dL (70-99) H Meds Current Medications Medications (Trade) Dose Ordered Sig/Ravinder Route PRN Reason Start Time Stop Time Status Last Admin Dose Admin Clonidine HCl (Catapres Tts-1) 1 patch Sa@0900 TD 06/24/21 09:00 06/24/21 09:06 Assessment Assessment 1. Diabetes mellitus type 2, generally uncontrolled, but currently blood sugars are stable. Last hemoglobin A1c was 9.2. He has diabetic nephropathy and neuropathy. 2. Chronic hypoxic respiratory failure, on oxygen by nasal cannula 2 liters per minute. 3. Chronic obstructive pulmonary disease. 4. Hypokalemia. 5. End-stage renal disease, on hemodialysis. 6. Gastroesophageal reflux disease. 7. Coronary artery disease with history of stent placement. 8. Mixed hyperlipidemia. 9. Chronic pancreatitis. 10. Anemia. 11. Physical deconditioning. 12. Osteoarthritis. 13. Chronic back pain. 14. Cervical spinal stenosis and cervical radiculopathy. Status post posterior cervical hemilaminectomy C5-C6 and C6-C7, cervical laminectomy, C3-C4, C4-C5 with posterior instrumentation and fusion C3-C4 and C4-C5. PLAN: Continue Humalog 6 units subcutaneously t.i.d. with meals. Continue Lantus 24 units subcutaneously at bedtime. I will start him on IV fluids as he is currently not eating. Give potassium chloride 20 mEq x 1 now. He will get hemodialysis Saturday, Saturday, and Saturday and he will get his next dialysis tomorrow. Staff is to call Dr. Riddle for further management of the renal issues as well as potassium. His blood pressure was high earlier, so I have ordered hydralazine 10 mg IV q.4h. p.r.n. for systolic blood pressure more than 160. I have spoken to the patient's mother who was at the bedside about his condition and treatment. Diabetes is well controlled. Hypokalemia improving. Potassium 3.4. ESRD. Hemodialysis Saturday. Hypoglycemia. Blood sugar dropped to 31. Patient was given IV D50. He is not eating. I will decrease Lantus from 24 units to 12 units subcu daily and discontinue scheduled Humalog insulin. Hold insulin if blood sugar less than 100 or if patient does not eat. Discussed with staff. Status post neck surgery. Discussed with staff. They will hold insulin if he does not eat. He is not ready for discharge today. Plan Plan For more details regarding further plans, please refer to the orders. Justifications for Admission Other Justification TRINA ALDANA MD Jun 24, 2021 10:25
[2021-06-24 11:00] VITALS: BP 164/56
[2021-06-24] MEDS: oxyCODONE/APAP 5/325 1 TAB TABLET PO PRN ×2 (11:43→16:52)
--- NOTE | 2021-06-24 12:23 | PDOC ---
DATE OF SERVICE: DOS: DATE: 06/24/21 TIME: 12:20 SUBJECTIVE ROS Follow-up for ESRD on hemodialysis Saturday Patient denies any new complaints at this time CVS: no Orthopnea, no CP RESP: no SOB, no HOLLEY GI: no Nausea, no Vomiting : no Dysuria, no Urgency OBJECTIVE Vital Signs Vital Signs Date Time Temp Pulse Resp B/P (MAP) Pulse Ox O2 Delivery O2 Flow Rate FiO2 06/24/21 11:00 98.9 92 16 164/56 (92) 91 Nasal Cannula 2.0 98.9 I & 0 Intake and Output 06/24/21 07:00 Intake Total 470 ml Balance 470 ml Intake Oral 470 ml PHYSICAL EXAM Physical Exam GEN: Awake, Oriented x 3, In no distress EYES: Vision Unchanged, Conjunctiva Normal EN: No EN Drainage, Mucous Membranes moist NECK: no JVD, no JVP, Supple, no Thyromegaly CVS: S1S2, ? soft Murmur, No Gallop, No Rub,no Edema RESP: no Rales, no Rhonchi,no Acc. Muscle Use GI: BS + ve, NO Bruit, Non Tender, Non Distended : no CVA tenderness, no Suprapubic Tenderness DIAGNOSIS/ASSESSMENT Assessment & Plan ESRD: Current fluid and E-lyte status does not necessitate emergent need for dialysis. Will re-evaluate for dialysis in the am and continue on MWF schedule. ANEMIA; hemoglobin currently 11, no need for extra EPO HTN: Current BP meds as reviewed. See orders for changes. BONE & MINERAL: Follow phosphorus levels and alter binder regimen as needed No labs for today COMMENT/RELEVANT DATA Meds Current Medications Medications (Trade) Dose Ordered Sig/Ravinder Start Time Stop Time Status Last Admin Dose Admin Acetaminophen (Tylenol) 650 mg PRN Q6HRS PRN 06/22/21 13:00 Al Hydroxide/Mg Hydroxide (Mylanta Plus Xs) 30 ml PRN Q3HRS PRN 06/22/21 13:00 Amylase/Lipase/ Protease (Zenpep 10,000) 3 cap TIDWMEALS 06/22/21 17:00 06/24/21 11:43 3 CAP Aspirin (Ecotrin) 81 mg DAILY 06/23/21 09:00 06/24/21 09:02 81 MG Atorvastatin Calcium (Lipitor) 80 mg QHS 06/22/21 21:00 12/3/21 20:26 80 MG Baclofen (Lioresal) 5 mg PRN TID PRN 06/22/21 12:45 Bupivacaine HCl/ Epinephrine Bitart (Sensorcain-Epi 0.5% Kit) 30 ml STK-MED ONCE 06/22/21 06:45 06/22/21 06:45 DC 06/22/21 09:59 7 ML Calcium Carbonate/ Glycine (Tums) 500 mg PRN Q3HRS PRN 06/22/21 13:00 Cefazolin Sodium (Ancef) 1 gm STK-MED ONCE 06/22/21 13:52 06/22/21 14:26 DC Cefazolin Sodium 1 gm/Sodium Chloride 1,000 ml @ 1,000 mls/hr 1X ONCE 06/22/21 06:00 06/22/21 06:59 DC 06/22/21 09:59 Cefazolin Sodium/ Dextrose 50 ml @ 100 mls/hr 1X PREOP PRN 06/22/21 06:00 06/22/21 18:00 DC 06/22/21 09:45 100 MLS/HR Clonidine HCl (Catapres Tts-1) 1 patch Sa@0900 06/24/21 09:00 06/24/21 09:06 1 PATCH Dextrose (Dextrose 50%-Water Syringe) 12.5 gm PRN Q15MIN PRN 06/22/21 13:00 06/24/21 07:39 12.5 GM Diphenhydramine HCl (Benadryl) 25 mg PRN Q6HRS PRN 06/22/21 13:00 Docusate Sodium (Colace) 100 mg BID 06/22/21 21:00 06/24/21 09:02 100 MG Doxazosin Mesylate (Cardura) 4 mg DAILY 06/22/21 14:00 06/24/21 09:01 4 MG Ephedrine Sulfate (ePHEDrine PF IN SALINE SYRINGE) 50 mg STK-MED ONCE 06/22/21 05:41 06/22/21 07:41 DC Fentanyl Citrate (Fentanyl 2ml Vial) 50 mcg PRN Q2HR PRN 06/22/21 13:00 06/23/21 20:26 50 MCG Gelatin (Gelfoam Size 100) 1 each STK-MED ONCE 06/22/21 06:45 06/22/21 06:45 DC 06/22/21 09:59 1 EACH Glycopyrrolate (Robinul) 1 mg STK-MED ONCE 06/22/21 09:44 06/22/21 11:44 DC Hydralazine HCl (Apresoline Inj) 10 mg PRN Q4HRS PRN 06/22/21 17:15 Hydralazine HCl (Apresoline) 100 mg TID 06/22/21 14:00 06/24/21 09:02 100 MG Hydromorphone HCl (Dilaudid) 2 mg STK-MED ONCE 06/22/21 09:40 06/22/21 11:40 DC Info (PHARMACY MONITORING -- do not chart) 1 each PRN DAILY PRN 06/23/21 08:00 Insulin Glargine (Lantus Syringe) 12 unit QHS 06/24/21 21:00 Insulin Human Lispro (HumaLOG VIAL for OP,RR ONLY) 0-10 units PRN Q1HR PRN 06/22/21 07:30 06/23/21 07:29 DC 06/22/21 08:07 8 UNIT Insulin Human Lispro (HumaLOG) 0-8 UNITS BIDBFRMEAL 06/23/21 07:30 Ketorolac Tromethamine (Toradol Im) 60 mg STK-MED ONCE 06/22/21 06:45 06/22/21 06:45 DC 06/22/21 09:59 60 MG Lidocaine HCl (Lidocaine Pf 2% Vial) 5 ml STK-MED ONCE 06/22/21 05:16 06/22/21 07:16 DC Magnesium Hydroxide (Milk Of Magnesia) 2,400 mg PRN Q12HR PRN 06/22/21 13:00 Methocarbamol (Robaxin) 750 mg PRN TID PRN 06/22/21 13:00 06/23/21 14:22 750 MG Midazolam HCl (Versed) 2 mg STK-MED ONCE 06/22/21 05:17 06/22/21 07:17 DC Naloxone HCl (Narcan) 0.1 mg PRN Q2MIN PRN 06/22/21 13:00 Neostigmine Monroe (Neostigmine Methylsulfate) 5 mg STK-MED ONCE 06/22/21 09:44 06/22/21 11:45 DC Non-Formulary Medication (Omeprazole ) 40 mg DAILY 06/23/21 09:00 UNV Ondansetron HCl (Zofran) 4 mg PRN Q6HRS PRN 06/22/21 13:00 06/22/21 22:13 4 MG Oxycodone/ Acetaminophen (Percocet 5/325) 2 tab PRN Q4HRS PRN 06/22/21 13:00 06/24/21 11:43 2 TAB Pantoprazole Sodium (Protonix) 40 mg DAILYAC 06/22/21 16:30 06/24/21 09:02 40 MG Phenylephrine HCl (Ariel-Synephrine Inj) 10 mg STK-MED ONCE 06/22/21 05:43 06/22/21 07:43 DC Phenylephrine HCl (PHENYLEPHRINE in 0.9% NACL PF) 1 mg STK-MED ONCE 06/22/21 05:18 06/22/21 07:19 DC Potassium Bicarbonate (Potassium Effervescent Tablet) 20 meq 1X ONCE 06/22/21 17:30 06/22/21 17:31 DC 06/22/21 17:32 20 MEQ Prochlorperazine Edisylate (Compazine) 5 mg PACU PRN PRN 06/22/21 06:00 06/23/21 05:59 DC Propofol 50 ml @ As Directed STK-MED ONCE 06/22/21 08:27 06/22/21 10:27 DC Propofol (Diprivan) 200 mg STK-MED ONCE 06/22/21 05:16 06/22/21 07:16 DC Remifentanil HCl (Ultiva) 2 mg STK-MED ONCE 06/22/21 05:17 06/22/21 07:18 DC Ringer's Solution 1,000 ml @ 30 mls/hr Q24H 06/22/21 06:00 06/22/21 17:59 DC Rocuronium Monroe (Zemuron) 50 mg STK-MED ONCE 06/22/21 05:17 06/22/21 07:17 DC Sevelamer Carbonate (Renvela) 800 mg TIDWMEALS 06/22/21 17:00 06/24/21 11:43 800 MG Sevoflurane (Ultane) 90 ml STK-MED ONCE 06/22/21 09:58 06/22/21 11:58 DC Sodium Chloride 1,000 ml @ 400 mls/hr Q2H30M PRN 06/23/21 08:00 06/23/21 19:59 DC Sodium Chloride (Normal Saline Flush) 3 ml QSHIFT PRN 06/22/21 13:00 Succinylcholine Chloride (Anectine) 200 mg STK-MED ONCE 06/22/21 05:17 06/22/21 07:17 DC Thrombin 20,000 unit STK-MED ONCE 06/22/21 06:45 06/22/21 06:45 DC 06/22/21 09:59 20,000 UNIT Trazodone HCl (Desyrel) 100 mg QHS 06/22/21 21:00 06/23/21 20:26 100 MG Lab Laboratory Tests Test 06/23/21 16:42 06/23/21 20:15 06/24/21 07:33 06/24/21 07:42 Glucose (Fingerstick) 154 mg/dL (70-99) 160 mg/dL (70-99) 31 mg/dL (70-99) 165 mg/dL (70-99) Test 06/24/21 11:24 06/24/21 11:33 Glucose (Fingerstick) 60 mg/dL (70-99) 135 mg/dL (70-99) Results All relevant outside records, renal labs, imaging studies, telemetry/EKG's were reviewed. Justicifation of Admission Dx: Justifications for Admission: Justification of Admission Dx: N/A FLOR BANUELOS MD Jun 24, 2021 12:23
[2021-06-24] MEDS: IV NORMAL SALINE 1000ML BAG 1,000 ML IV SCH (13:13)
[2021-06-24] MEDS: fentaNYL PF VIAL 100 MCG/2 ML VIAL IVP PRN (13:15)
[2021-06-24 14:51] VITALS: BP 116/36
[2021-06-24] MEDS: IV DEXTROSE 5% 1,000 ML IV SCH (17:47)
--- NOTE | 2021-06-24 18:22 | PDOC ---
PROGRESS NOTES Date of Service DATE: 06/24/21 TIME: 18:19 Subjective Subjective Patient seen at 1230 POD #2 S/P cervical laminectomy neck pain notices improvement had low blood sugar this morning Objective Objective Vital Signs Date Time Temp Pulse Resp B/P (MAP) Pulse Ox O2 Delivery O2 Flow Rate FiO2 06/24/21 14:51 97.6 92 16 116/36 (62) 90 Nasal Cannula 2.0 97.6 Intake and Output 06/24/21 07:00 Intake Total 470 ml Balance 470 ml Intake Oral 470 ml Physical Exam General: Cooperative MUSCULOSKELETAL: Other (CORLEY) Neuro: Normal speech Skin: Other (dressing intact) Plan Plan of Care encouraged increased activity as tolerated wound care, pain medication PT/ OT Dr Valadez and Dr. Riddle following Comment Review of Relevant I have reviewed the following items donell (where applicable) has been applied. Labs Laboratory Tests Test 06/22/21 20:46 06/23/21 05:10 06/23/21 07:31 06/23/21 12:18 Glucose (Fingerstick) 170 mg/dL (70-99) 145 mg/dL (70-99) 101 mg/dL (70-99) White Blood Count 9.8 x10^3/uL (4.0-11.0) Red Blood Count 3.86 x10^6/uL (4.30-5.70) Hemoglobin 11.0 g/dL (13.0-17.5) Hematocrit 33.1 % (39.0-53.0) Mean Corpuscular Volume 86 fL (79-100) Mean Corpuscular Hemoglobin 29 pg (25-35) Mean Corpuscular Hemoglobin Concent 33 g/dL (31-37) Red Cell Distribution Width 16.2 % (11.5-14.5) Platelet Count 246 x10^3/uL (140-400) Neutrophils (%) (Auto) 75 % (31-73) Lymphocytes (%) (Auto) 18 % (24-48) Monocytes (%) (Auto) 5 % (0-9) Eosinophils (%) (Auto) 2 % (0-3) Basophils (%) (Auto) 1 % (0-3) Neutrophils # (Auto) 7.3 x10^3/uL (1.8-7.7) Lymphocytes # (Auto) 1.7 x10^3/uL (1.0-4.8) Monocytes # (Auto) 0.5 x10^3/uL (0.0-1.1) Eosinophils # (Auto) 0.2 x10^3/uL (0.0-0.7) Basophils # (Auto) 0.1 x10^3/uL (0.0-0.2) Sodium Level 131 mmol/L (136-145) Potassium Level 3.4 mmol/L (3.5-5.1) Chloride Level 94 mmol/L (98-107) Carbon Dioxide Level 26 mmol/L (21-32) Anion Gap 11 (6-14) Blood Urea Nitrogen 20 mg/dL (8-26) Creatinine 6.1 mg/dL (0.7-1.3) Estimated GFR (Cockcroft-Gault) 11.7 BUN/Creatinine Ratio 3 (6-20) Glucose Level 145 mg/dL (70-99) Calcium Level 7.4 mg/dL (8.5-10.1) Total Bilirubin 0.2 mg/dL (0.2-1.0) Aspartate Amino Transf (AST/SGOT) 37 U/L (15-37) Alanine Aminotransferase (ALT/SGPT) 22 U/L (16-63) Alkaline Phosphatase 153 U/L (46-116) Total Protein 5.8 g/dL (6.4-8.2) Albumin 2.6 g/dL (3.4-5.0) Albumin/Globulin Ratio 0.8 (1.0-1.7) Test 06/23/21 16:42 06/23/21 20:15 06/24/21 07:33 06/24/21 07:42 Glucose (Fingerstick) 154 mg/dL (70-99) 160 mg/dL (70-99) 31 mg/dL (70-99) 165 mg/dL (70-99) Test 06/24/21 11:24 06/24/21 11:33 06/24/21 15:59 06/24/21 16:11 Glucose (Fingerstick) 60 mg/dL (70-99) 135 mg/dL (70-99) 61 mg/dL (70-99) 116 mg/dL (70-99) Laboratory Tests Test 06/23/21 20:15 06/24/21 07:33 06/24/21 07:42 06/24/21 11:24 Glucose (Fingerstick) 160 mg/dL (70-99) 31 mg/dL (70-99) 165 mg/dL (70-99) 60 mg/dL (70-99) Test 06/24/21 11:33 06/24/21 15:59 06/24/21 16:11 Glucose (Fingerstick) 135 mg/dL (70-99) 61 mg/dL (70-99) 116 mg/dL (70-99) Medications Current Medications Cefazolin Sodium 1 gm/Sodium Chloride 1,000 ml @ 1,000 mls/hr 1X ONCE IRR Last administered on 06/22/21at 09:59; Start 06/22/21 at 06:00; Stop 06/22/21 at 06:59; Status DC Fentanyl Citrate (Fentanyl 2ml Vial) 25 mcg PRN Q5MIN PRN IVP MILD PAIN 1-3; Start 06/22/21 at 06:00; Stop 06/23/21 at 05:59; Status DC Fentanyl Citrate (Fentanyl 2ml Vial) 50 mcg PRN Q5MIN PRN IVP MODERATE PAIN 4-6 Last administered on 06/22/21at 13:55; Start 06/22/21 at 06:00; Stop 06/23/21 at 05:59; Status DC Ringer's Solution 1,000 ml @ 30 mls/hr Q24H IV ; Start 06/22/21 at 06:00; Stop 06/22/21 at 17:59; Status DC Prochlorperazine Edisylate (Compazine) 5 mg PACU PRN PRN IVP NAUSEA, MRX1; Start 06/22/21 at 06:00; Stop 06/23/21 at 05:59; Status DC Cefazolin Sodium/ Dextrose 50 ml @ 100 mls/hr 1X PREOP PRN IV PRIOR TO PROCEDURE Last administered on 06/22/21at 09:45; Start 06/22/21 at 06:00; Stop 06/22/21 at 18:00; Status DC Gelatin (Gelfoam Size 100) 1 each STK-MED ONCE .ROUTE Last administered on at 09:59; Start 06/22/21 at 06:45; Stop 06/22/21 at 06:45; Status DC Bupivacaine HCl/ Epinephrine Bitart (Sensorcain-Epi 0.5% Kit) 30 ml STK-MED ONCE .ROUTE Last administered on 06/22/21at 09:59; Start 06/22/21 at 06:45; Stop 06/22/21 at 06:45; Status DC Ketorolac Tromethamine (Toradol Im) 60 mg STK-MED ONCE .ROUTE Last administered on 06/22/21at 09:59; Start 06/22/21 at 06:45; Stop 06/22/21 at 06:45; Status DC Thrombin 20,000 unit STK-MED ONCE TP Last administered on 06/22/21at 09:59; Start 06/22/21 at 06:45; Stop 06/22/21 at 06:45; Status DC Propofol (Diprivan) 200 mg STK-MED ONCE IV ; Start 06/22/21 at 05:16; Stop 06/22/21 at 07:16; Status DC Lidocaine HCl (Lidocaine Pf 2% Vial) 5 ml STK-MED ONCE .ROUTE ; Start 06/22/21 at 05:16; Stop 06/22/21 at 07:16; Status DC Propofol 50 ml @ As Directed STK-MED ONCE IV ; Start 06/22/21 at 05:16; Stop 06/22/21 at 07:16; Status DC Fentanyl Citrate (Fentanyl 2ml Vial) 100 mcg STK-MED ONCE .ROUTE ; Start 06/22/21 at 05:16; Stop 06/22/21 at 07:17; Status DC Succinylcholine Chloride (Anectine) 200 mg STK-MED ONCE .ROUTE ; Start 06/22/21 at 05:17; Stop 06/22/21 at 07:17; Status DC Rocuronium Dennis (Zemuron) 50 mg STK-MED ONCE .ROUTE ; Start 06/22/21 at 05:17; Stop 06/22/21 at 07:17; Status DC Midazolam HCl (Versed) 2 mg STK-MED ONCE .ROUTE ; Start 06/22/21 at 05:17; Stop 06/22/21 at 07:17; Status DC Remifentanil HCl (Ultiva) 2 mg STK-MED ONCE IV ; Start 06/22/21 at 05:17; Stop 06/22/21 at 07:18; Status DC Phenylephrine HCl (PHENYLEPHRINE in 0.9% NACL PF) 1 mg STK-MED ONCE IV ; Start 06/22/21 at 05:18; Stop 06/22/21 at 07:19; Status DC Phenylephrine HCl (Ariel-Synephrine Inj) 10 mg STK-MED ONCE .ROUTE ; Start 06/22/21 at 05:18; Stop 06/22/21 at 07:19; Status DC Insulin Human Lispro (HumaLOG VIAL for OP,RR ONLY) 0-10 units PRN Q1HR PRN SQ PER PROTOCOL Last administered on 06/22/21at 08:07; Start 06/22/21 at 07:30; Stop 06/23/21 at 07:29; Status DC Ephedrine Sulfate (ePHEDrine PF IN SALINE SYRINGE) 50 mg STK-MED ONCE IV ; Start 06/22/21 at 05:41; Stop 06/22/21 at 07:41; Status DC Phenylephrine HCl (Ariel-Synephrine Inj) 10 mg STK-MED ONCE .ROUTE ; Start 06/22/21 at 05:43; Stop 06/22/21 at 07:43; Status DC Sodium Chloride 1,000 ml @ 0 mls/hr Q0M IV Last administered on 06/22/21at 07:46; Start 06/22/21 at 07:45; Stop 06/23/21 at 09:42; Status DC Propofol 50 ml @ As Directed STK-MED ONCE IV ; Start 06/22/21 at 08:27; Stop 06/22/21 at 10:27; Status DC Hydromorphone HCl (Dilaudid) 2 mg STK-MED ONCE .ROUTE ; Start 06/22/21 at 09:40; Stop 06/22/21 at 11:40; Status DC Glycopyrrolate (Robinul) 1 mg STK-MED ONCE .ROUTE ; Start 06/22/21 at 09:44; Stop 06/22/21 at 11:44; Status DC Neostigmine Dennis (Neostigmine Methylsulfate) 5 mg STK-MED ONCE .ROUTE ; Start 06/22/21 at 09:44; Stop 06/22/21 at 11:45; Status DC Sevoflurane (Ultane) 90 ml STK-MED ONCE IH ; Start 06/22/21 at 09:58; Stop 06/22/21 at 11:58; Status DC Aspirin (Ecotrin) 81 mg DAILY PO Last administered on 06/24/21 09:02; Start 06/23/21 at 09:00 Baclofen (Lioresal) 5 mg PRN TID PRN PO MUSCLE SPASMS; Start 06/22/21 at 12:45 Clonidine HCl (Catapres Tts-1) 1 patch Sa@0900 TD Last administered on 06/24/21at 09:06; Start 06/24/21 at 09:00 Doxazosin Mesylate (Cardura) 4 mg DAILY PO Last administered on 06/24/21at 09:01; Start 06/22/21 at 14:00 Insulin Human Lispro (HumaLOG) 6 units TIDWMEALS SQ ; Start 06/22/21 at 17:00; Stop 06/24/21 at 10:24; Status DC Amylase/Lipase/ Protease (Zenpep 10,000) 3 cap TIDWMEALS PO Last administered on 06/24/21at 16:52; Start 06/22/21 at 17:00 Pantoprazole Sodium (Protonix) 40 mg DAILYAC PO Last administered on 06/24/21 09:02; Start 06/22/21 at 16:30 Sevelamer Carbonate (Renvela) 800 mg TIDWMEALS PO Last administered on 06/24/21 16:52; Start 06/22/21 at 17:00 Trazodone HCl (Desyrel) 100 mg QHS PO Last administered on 06/23/21at 20:26; Start 06/22/21 at 21:00 Atorvastatin Calcium (Lipitor) 80 mg QHS PO Last administered on 06/23/21at 20:26; Start 06/22/21 at 21:00 Hydralazine HCl (Apresoline) 100 mg TID PO Last administered on 06/24/21at 12:41; Start 06/22/21 at 14:00 Insulin Glargine (Lantus Syringe) 24 unit QHS SQ Last administered on 06/23/21at 20:35; Start 06/22/21 at 21:00; Stop 06/24/21 at 10:24; Status DC Non-Formulary Medication (Omeprazole ) 40 mg DAILY PO ; Start 06/23/21 at 09:00; Status UNV Acetaminophen (Tylenol) 650 mg PRN Q6HRS PRN PO MILD PAIN / TEMP > 100.3'F; Start 06/22/21 at 13:00 Al Hydroxide/Mg Hydroxide (Mylanta Plus Xs) 30 ml PRN Q3HRS PRN PO HEARTBURN / GAS; Start 06/22/21 at 13:00 Calcium Carbonate/ Glycine (Tums) 500 mg PRN Q3HRS PRN PO INDIGESTION; Start 06/22/21 at 13:00 Diphenhydramine HCl (Benadryl) 25 mg PRN Q6HRS PRN PO ITCHING; Start 06/22/21 at 13:00 Naloxone HCl (Narcan) 0.1 mg PRN Q2MIN PRN IV SEE COMMENTS; Start 06/22/21 at 13:00 Sodium Chloride (Normal Saline Flush) 3 ml QSHIFT PRN IV AFTER MEDS AND BLOOD DRAWS; Start 06/22/21 at 13:00 Oxycodone/ Acetaminophen (Percocet 5/325) 1 tab PRN Q4HRS PRN PO MILD PAIN, 1ST CHOICE; Start 06/22/21 at 13:00 Oxycodone/ Acetaminophen (Percocet 5/325) 2 tab PRN Q4HRS PRN PO MODERATE PAIN, SEVERE PAIN Last administered on 06/24/21at 16:52; Start 06/22/21 at 13:00 Methocarbamol (Robaxin) 750 mg PRN TID PRN PO MUSCLE SPASMS Last administered on 06/23/21at 14:22; Start 06/22/21 at 13:00 Docusate Sodium (Colace) 100 mg BID PO Last administered on 06/24/21at 09:02; Start 06/22/21 at 21:00 Magnesium Hydroxide (Milk Of Magnesia) 2,400 mg PRN Q12HR PRN PO CONSTIPATION; Start 06/22/21 at 13:00 Ondansetron HCl (Zofran) 4 mg PRN Q6HRS PRN IVP NAUESA, 1ST CHOICE Last administered on 06/22/21at 22:13; Start 06/22/21 at 13:00 Cefazolin Sodium (Ancef) 1 gm Q8HRS IVP Last administered on 06/22/21at 13:55; Start 06/22/21 at 14:00; Stop 06/22/21 at 14:26; Status DC Fentanyl Citrate (Fentanyl 2ml Vial) 50 mcg PRN Q2HR PRN IVP MODERATE TO SEVERE PAIN Last administered on 06/24/21at 13:15; Start 06/22/21 at 13:00 Dextrose (Dextrose 50%-Water Syringe) 12.5 gm PRN Q15MIN PRN IV SEE COMMENTS Last administered on 06/24/21at 11:24; Start 06/22/21 at 13:00 Cefazolin Sodium (Ancef) 1 gm Q8H IVP Last administered on 06/23/21at 12:25; Start 06/22/21 at 18:00; Stop 06/23/21 at 10:01; Status DC Cefazolin Sodium (Ancef) 1 gm STK-MED ONCE IVP ; Start 06/22/21 at 13:52; Stop 06/22/21 at 14:26; Status DC Hydralazine HCl (Apresoline Inj) 10 mg PRN Q4HRS PRN IVP ELEVATED BP, SEE COMMENTS; Start 06/22/21 at 17:15 Potassium Bicarbonate (Potassium Effervescent Tablet) 20 meq 1X ONCE PO Last administered on 06/22/21at 17:32; Start 06/22/21 at 17:30; Stop 06/22/21 at 17:31; Status DC Sodium Chloride 1,000 ml @ 50 mls/hr Q20H IV Last administered on 06/24/21at 13:13; Start 06/22/21 at 17:30; Stop 06/24/21 at 17:14; Status DC Insulin Human Lispro (HumaLOG) 0-8 UNITS BIDBFRMEAL SQ ; Start 06/23/21 at 07:30 Sodium Chloride 1,000 ml @ 1,000 mls/hr Q1H PRN IV hypotension; Start 06/23/21 at 08:00; Stop 06/23/21 at 13:59; Status DC Sodium Chloride 1,000 ml @ 400 mls/hr Q2H30M PRN IV PATENCY; Start 06/23/21 at 08:00; Stop 06/23/21 at 19:59; Status DC Info (PHARMACY MONITORING -- do not chart) 1 each PRN DAILY PRN MC SEE COMMENTS; Start 06/23/21 at 08:00 Insulin Glargine (Lantus Syringe) 12 unit QHS SQ ; Start 06/24/21 at 21:00; Stop 06/24/21 at 17:11; Status DC Dextrose 1,000 ml @ 50 mls/hr Q20H IV Last administered on 06/24/21at 17:47; Start 06/24/21 at 17:15 Active Scripts Active Pantoprazole Sodium (Pantoprazole Sodium) 40 Mg Tablet.dr 40 Mg PO DAILYAC 30 Days Clonidine Tts-1 (Clonidine) 1 Each Patch.tdwk 1 Patch TD SA@0900 28 Days Baclofen 10 Mg Tablet 5 Mg PO TID PRN Renvela (Sevelamer Carbonate) 800 Mg Tablet 800 Mg PO TIDWMEALS 30 Days Reported Humalog (Insulin Lispro) 100 Unit/1 Ml Vial 6 Unit SQ TIDWMEALS Lantus Solostar (Insulin Glargine,Hum.rec.anlog) 100 Unit/1 Ml Insuln.pen 24 Unit SQ QHS Omeprazole 40 Mg Capsule. 40 Mg PO DAILY Zenpep Dr 10,000 Units Capsule (Lipase/Protease/Amylase) 1 Each Capsule.dr 3 Cap PO TIDWMEALS Doxazosin Mesylate 4 Mg Tablet 1 Tab PO DAILY Trazodone Hcl 100 Mg Tablet 1 Tab PO QHS Hydrocodone-Acetamin 7.5-325 (Hydrocodone/Acetaminophen) 1 Each Tablet 7.5-325 Mg PO Q6HRS PRN Hydralazine Hcl 100 Mg Tablet 1 Tab PO TID Aspir 81 (Aspirin) 81 Mg Tablet. 1 Tab PO DAILY Atorvastatin Calcium 80 Mg Tablet 1 Tab PO DAILY Vitals/I & O Vital Sign - Last 24 Hours 06/23/21 06/23/21 06/23/21 06/23/21 19:00 19:40 20:26 20:27 Temp 98.3 98.3 Pulse 89 89 Resp 18 B/P (MAP) 152/62 (92) 152/62 Pulse Ox 93 O2 Delivery Nasal Cannula Nasal Cannula Nasal Cannula O2 Flow Rate 2.0 2.0 2.0 06/23/21 06/23/21 06/23/21 06/23/21 20:56 21:22 21:52 23:00 Temp 98.0 98.0 Pulse 75 Resp 18 B/P (MAP) 141/71 (94) Pulse Ox 94 O2 Delivery Nasal Cannula Nasal Cannula Nasal Cannula Nasal Cannula O2 Flow Rate 2.0 2.0 2.0 2.0 06/24/21 06/24/21 06/24/21 06/24/21 03:00 06:54 08:00 09:01 Temp 98.4 97.9 98.4 97.9 Pulse 92 90 90 Resp 18 16 B/P (MAP) 171/69 (103) 153/63 (93) 153/63 Pulse Ox 90 90 O2 Delivery Nasal Cannula Nasal Cannula Nasal Cannula O2 Flow Rate 2.0 2.0 2.0 06/24/21 06/24/21 06/24/21 06/24/21 09:02 11:00 12:41 14:51 Temp 98.9 97.6 98.9 97.6 Pulse 90 92 92 92 Resp 16 16 B/P (MAP) 153/63 164/56 (92) 164/56 116/36 (62) Pulse Ox 91 90 O2 Delivery Nasal Cannula Nasal Cannula O2 Flow Rate 2.0 2.0 Intake and Output 06/23/21 06/23/21 06/24/21 15:00 23:00 07:00 Intake Total 200 ml 270 ml Balance 200 ml 270 ml Justifications for Admission Other Justification MAI KEN MD Jun 24, 2021 18:22
[2021-06-24 19:00] VITALS: BP 172/62
[2021-06-24] MEDS ORDERED: INSULIN GLARGINE SYRINGE. SQ SCH (21:00)
[2021-06-24] MEDS: ATORVASTATIN CALCIUM 40 MG TABLET. PO SCH (21:08)
[2021-06-24] MEDS: traZODone 100 MG TABLET. PO SCH (21:08)
[2021-06-24 23:00] VITALS: BP 194/73
[2021-06-24] MEDS: hydrALAZINE 20 MG/ML VIAL. IVP PRN (23:35)
[2021-06-25 03:00] VITALS: BP 173/64
[2021-06-25 07:00] VITALS: BP 164/61
[2021-06-25] MEDS: INSULIN LISPRO 300 UNITS/3 ML VIAL. SQ SCH ×2 (07:30→16:30)
[2021-06-25] MEDS: ASPIRIN ENTERIC COATED 81 MG TABLET.DR. PO SCH (09:57)
[2021-06-25] MEDS: PANTOPRAZOLE 40 MG TABLET.DR. PO SCH (09:57)
[2021-06-25] MEDS: LIPASE/PROTEAS/AMYLAS 10/32/42 CAPSULE.DR. PO SCH ×3 (09:57→16:45)
[2021-06-25] MEDS: SEVELAMER CARBONATE 800 MG TABLET. PO SCH ×3 (09:58→16:45)
[2021-06-25] MEDS: DOXAZOSIN MESYLATE 4 MG TABLET. PO SCH (09:58)
[2021-06-25] MEDS: DOCUSATE SODIUM 100 MG CAPSULE. PO SCH ×2 (09:58→21:36)
[2021-06-25] MEDS: oxyCODONE/APAP 5/325 1 TAB TABLET PO PRN ×2 (09:58→16:45)
[2021-06-25] MEDS: IV DEXTROSE 5% 1,000 ML IV SCH (10:00)
[2021-06-25] MEDS: hydrALAZINE 20 MG/ML VIAL. IVP PRN ×2 (10:02→16:46)
--- NOTE | 2021-06-25 10:28 | PDOC ---
PROGRESS NOTES Date of Service: DATE: 06/25/21 TIME: 10:25 Subjective Subjective post op pain Objective Objective Vital Signs Date Time Temp Pulse Resp B/P (MAP) Pulse Ox O2 Delivery O2 Flow Rate FiO2 06/25/21 10:02 76 164/61 06/25/21 07:43 Nasal Cannula 2.0 06/25/21 07:00 98.3 16 97 98.3 Intake and Output 06/25/21 07:00 Intake Total 1010 ml Output Total 250 ml Balance 760 ml Intake Oral 1010 ml Output Urine Total 250 ml Physical Exam Abdomen: Normal bowel sounds, Soft, No tenderness Heart: Normal S1 Extremities: No cyanosis General: Cooperative HEENT: Atraumatic, PERRLA Lungs: Clear to auscultation, Normal air movement MUSCULOSKELETAL: Other (CORLEY) Neuro: Normal speech Psych/Mental Status: Mental status NL, Mood NL Skin: Other (dressing intact) Assessment Assessment Hypoglycemia 1. Diabetes mellitus type 2, generally uncontrolled, but currently blood sugars are stable. Last hemoglobin A1c was 9.2. He has diabetic nephropathy and neuropathy. 2. Chronic hypoxic respiratory failure, on oxygen by nasal cannula 2 liters per minute. 3. Chronic obstructive pulmonary disease. 4. Hypokalemia. 5. End-stage renal disease, on hemodialysis. 6. Gastroesophageal reflux disease. 7. Coronary artery disease with history of stent placement. 8. Mixed hyperlipidemia. 9. Chronic pancreatitis. 10. Anemia. 11. Physical deconditioning. 12. Osteoarthritis. 13. Chronic back pain. 14. Cervical spinal stenosis and cervical radiculopathy. Status post posterior cervical hemilaminectomy C5-C6 and C6-C7, cervical laminectomy, C3-C4, C4-C5 with posterior instrumentation and fusion C3-C4 and C4-C5. PLAN: bs 36 yesterday today 86 pt not eating due to pain from surgery. hopefully he can eat better today, sliding scale insulin. possible d/c home tomorrow. Comment Review of Relevant I have reviewed the following items donell (where applicable) has been applied. Labs Laboratory Tests Test 06/24/21 11:24 06/24/21 11:33 06/24/21 15:59 06/24/21 16:11 Glucose (Fingerstick) 60 mg/dL (70-99) 135 mg/dL (70-99) 61 mg/dL (70-99) 116 mg/dL (70-99) Test 06/24/21 20:17 06/25/21 07:55 Glucose (Fingerstick) 82 mg/dL (70-99) 85 mg/dL (70-99) Medications Current Medications Dextrose 1,000 ml @ 50 mls/hr Q20H IV Last administered on 06/25/21at 10:00; Start 06/24/21 at 17:15 Insulin Glargine (Lantus Syringe) 12 unit QHS SQ ; Start 06/24/21 at 21:00; Stop 06/24/21 at 17:11; Status DC Vitals/I & O Vital Sign - Last 24 Hours 06/24/21 06/24/21 06/24/21 06/24/21 11:00 12:41 14:51 19:00 Temp 98.9 97.6 98.7 98.9 97.6 98.7 Pulse 92 92 92 83 Resp 16 16 16 B/P (MAP) 164/56 (92) 164/56 116/36 (62) 172/62 (98) Pulse Ox 91 90 90 O2 Delivery Nasal Cannula Nasal Cannula Nasal Cannula O2 Flow Rate 2.0 2.0 2.0 06/24/21 06/24/21 06/24/21 06/24/21 20:20 21:08 23:00 23:35 Temp 99.0 99.0 Pulse 78 76 82 Resp 18 B/P (MAP) 192/65 194/73 (113) 190/66 Pulse Ox 91 O2 Delivery Nasal Cannula Nasal Cannula O2 Flow Rate 2.0 2.0 06/25/21 06/25/21 06/25/21 06/25/21 03:00 07:00 07:43 09:58 Temp 98.9 98.3 98.9 98.3 Pulse 90 76 76 Resp 18 16 B/P (MAP) 173/64 (100) 164/61 (95) 164/61 Pulse Ox 90 97 O2 Delivery Nasal Cannula Room Air Nasal Cannula O2 Flow Rate 2.0 2.0 06/25/21 06/25/21 09:58 10:02 Pulse 76 76 B/P (MAP) 164/61 164/61 Intake and Output 06/24/21 06/24/21 06/25/21 15:00 23:00 07:00 Intake Total 100 ml 410 ml 500 ml Output Total 250 ml Balance 100 ml 160 ml 500 ml Justifications for Admission Other Justification INÉS WALTER MD Jun 25, 2021 10:28
[2021-06-25 11:00] VITALS: BP 144/60
[2021-06-25 15:00] VITALS: BP 170/69
--- NOTE | 2021-06-25 17:09 | PDOC ---
PROGRESS NOTES Date of Service DATE: 06/25/21 TIME: 17:07 Subjective Subjective POD #3 S/P Cervical laminectomy and fusion awake, alert,sitting up in bed post op incision pain arms and legs feel much better ambulated today with walker, was up in chair Objective Objective Vital Signs Date Time Temp Pulse Resp B/P (MAP) Pulse Ox O2 Delivery O2 Flow Rate FiO2 06/25/21 16:46 92 170/69 06/25/21 15:00 98.3 16 97 Room Air 98.3 06/25/21 07:43 2.0 Intake and Output 06/25/21 07:00 Intake Total 1010 ml Output Total 250 ml Balance 760 ml Intake Oral 1010 ml Output Urine Total 250 ml Physical Exam General: Alert, Oriented X3, Cooperative MUSCULOSKELETAL: Other (CORLEY) Neuro: Normal speech, Strength at /5 X4 ext Skin: Other (dressing intact) Plan Plan of Care encouraged increased activity as tolerated PT/ OT Dialysis tomorrow possible dc tomorrow or Saturday SCDs when in bed Comment Review of Relevant I have reviewed the following items donell (where applicable) has been applied. Labs Laboratory Tests Test 06/23/21 20:15 06/24/21 07:33 06/24/21 07:42 06/24/21 11:24 Glucose (Fingerstick) 160 mg/dL (70-99) 31 mg/dL (70-99) 165 mg/dL (70-99) 60 mg/dL (70-99) Test 06/24/21 11:33 06/24/21 15:59 06/24/21 16:11 06/24/21 20:17 Glucose (Fingerstick) 135 mg/dL (70-99) 61 mg/dL (70-99) 116 mg/dL (70-99) 82 mg/dL (70-99) Test 06/25/21 07:55 06/25/21 11:57 Glucose (Fingerstick) 85 mg/dL (70-99) 116 mg/dL (70-99) Laboratory Tests Test 06/24/21 20:17 06/25/21 07:55 06/25/21 11:57 Glucose (Fingerstick) 82 mg/dL (70-99) 85 mg/dL (70-99) 116 mg/dL (70-99) Medications Current Medications Cefazolin Sodium 1 gm/Sodium Chloride 1,000 ml @ 1,000 mls/hr 1X ONCE IRR Last administered on 06/22/21at 09:59; Start 06/22/21 at 06:00; Stop 06/22/21 at 06:59; Status DC Fentanyl Citrate (Fentanyl 2ml Vial) 25 mcg PRN Q5MIN PRN IVP MILD PAIN 1-3; Start 06/22/21 at 06:00; Stop 06/23/21 at 05:59; Status DC Fentanyl Citrate (Fentanyl 2ml Vial) 50 mcg PRN Q5MIN PRN IVP MODERATE PAIN 4-6 Last administered on 06/22/21at 13:55; Start 06/22/21 at 06:00; Stop 06/23/21 at 05:59; Status DC Ringer's Solution 1,000 ml @ 30 mls/hr Q24H IV ; Start 06/22/21 at 06:00; Stop 06/22/21 at 17:59; Status DC Prochlorperazine Edisylate (Compazine) 5 mg PACU PRN PRN IVP NAUSEA, MRX1; Start 06/22/21 at 06:00; Stop 06/23/21 at 05:59; Status DC Cefazolin Sodium/ Dextrose 50 ml @ 100 mls/hr 1X PREOP PRN IV PRIOR TO PROCEDURE Last administered on 06/22/21at 09:45; Start 06/22/21 at 06:00; Stop 06/22/21 at 18:00; Status DC Gelatin (Gelfoam Size 100) 1 each STK-MED ONCE .ROUTE Last administered on 06/22/21at 09:59; Start 06/22/21 at 06:45; Stop 06/22/21 at 06:45; Status DC Bupivacaine HCl/ Epinephrine Bitart (Sensorcain-Epi 0.5% Kit) 30 ml STK-MED ONCE .ROUTE Last administered on 06/22/21at 09:59; Start 06/22/21 at 06:45; Stop 06/22/21 at 06:45; Status DC Ketorolac Tromethamine (Toradol Im) 60 mg STK-MED ONCE .ROUTE Last administered on 06/22/21at 09:59; Start 06/22/21 at 06:45; Stop 06/22/21 at 06:45; Status DC Thrombin 20,000 unit STK-MED ONCE TP Last administered on 06/22/21at 09:59; Start 06/22/21 at 06:45; Stop 06/22/21 at 06:45; Status DC Propofol (Diprivan) 200 mg STK-MED ONCE IV ; Start 06/22/21 at 05:16; Stop 06/22/21 at 07:16; Status DC Lidocaine HCl (Lidocaine Pf 2% Vial) 5 ml STK-MED ONCE .ROUTE ; Start 06/22/21 at 05:16; Stop 06/22/21 at 07:16; Status DC Propofol 50 ml @ As Directed STK-MED ONCE IV ; Start 06/22/21 at 05:16; Stop 06/22/21 at 07:16; Status DC Fentanyl Citrate (Fentanyl 2ml Vial) 100 mcg STK-MED ONCE .ROUTE ; Start 06/22/21 at 05:16; Stop 06/22/21 at 07:17; Status DC Succinylcholine Chloride (Anectine) 200 mg STK-MED ONCE .ROUTE ; Start 06/22/21 at 05:17; Stop 06/22/21 at 07:17; Status DC Rocuronium [place] (Zemuron) 50 mg STK-MED ONCE .ROUTE ; Start 06/22/21 at 05:17; Stop 06/22/21 at 07:17; Status DC Midazolam HCl (Versed) 2 mg STK-MED ONCE .ROUTE ; Start 06/22/21 at 05:17; Stop 06/22/21 at 07:17; Status DC Remifentanil HCl (Ultiva) 2 mg STK-MED ONCE IV ; Start 06/22/21 at 05:17; Stop 06/22/21 at 07:18; Status DC Phenylephrine HCl (PHENYLEPHRINE in 0.9% NACL PF) 1 mg STK-MED ONCE IV ; Start 06/22/21 at 05:18; Stop 06/22/21 at 07:19; Status DC Phenylephrine HCl (Ariel-Synephrine Inj) 10 mg STK-MED ONCE .ROUTE ; Start 06/22/21 at 05:18; Stop 06/22/21 at 07:19; Status DC Insulin Human Lispro (HumaLOG VIAL for OP,RR ONLY) 0-10 units PRN Q1HR PRN SQ PER PROTOCOL Last administered on 06/22/21at 08:07; Start 06/22/21 at 07:30; Stop 06/23/21 at 07:29; Status DC Ephedrine Sulfate (ePHEDrine PF IN SALINE SYRINGE) 50 mg STK-MED ONCE IV ; Start 06/22/21 at 05:41; Stop 06/22/21 at 07:41; Status DC Phenylephrine HCl (Ariel-Synephrine Inj) 10 mg STK-MED ONCE .ROUTE ; Start 06/22/21 at 05:43; Stop 06/22/21 at 07:43; Status DC Sodium Chloride 1,000 ml @ 0 mls/hr Q0M IV Last administered on 06/22/21at 07:46; Start 06/22/21 at 07:45; Stop 06/23/21 at 09:42; Status DC Propofol 50 ml @ As Directed STK-MED ONCE IV ; Start 06/22/21 at 08:27; Stop 06/22/21 at 10:27; Status DC Hydromorphone HCl (Dilaudid) 2 mg STK-MED ONCE .ROUTE ; Start 06/22/21 at 09:40; Stop 06/22/21 at 11:40; Status DC Glycopyrrolate (Robinul) 1 mg STK-MED ONCE .ROUTE ; Start 06/22/21 at 09:44; Stop 06/22/21 at 11:44; Status DC Neostigmine [place] (Neostigmine Methylsulfate) 5 mg STK-MED ONCE .ROUTE ; Start 06/22/21 at 09:44; Stop 06/22/21 at 11:45; Status DC Sevoflurane (Ultane) 90 ml STK-MED ONCE IH ; Start 06/22/21 at 09:58; Stop 06/22/21 at 11:58; Status DC Aspirin (Ecotrin) 81 mg DAILY PO Last administered on 06/25/21at 09:57; Start 06/23/21 at 09:00 Baclofen (Lioresal) 5 mg PRN TID PRN PO MUSCLE SPASMS; Start 06/22/21 at 12:45 Clonidine HCl (Catapres Tts-1) 1 patch Sa@0900 TD Last administered on 06/24/21at 09:06; Start 06/24/21 at 09:00 Doxazosin Mesylate (Cardura) 4 mg DAILY PO Last administered on 06/25/21at 09:58; Start 06/22/21 at 14:00 Insulin Human Lispro (HumaLOG) 6 units TIDWMEALS SQ ; Start 06/22/21 at 17:00; Stop 06/24/21 at 10:24; Status DC Amylase/Lipase/ Protease (Zenpep 10,000) 3 cap TIDWMEALS PO Last administered on 06/25/21at 16:45; Start 06/22/21 at 17:00 Pantoprazole Sodium (Protonix) 40 mg DAILYAC PO Last administered on 06/25/21at 09:57; Start 06/22/21 at 16:30 Sevelamer Carbonate (Renvela) 800 mg TIDWMEALS PO Last administered on 06/25/21at 16:45; Start 06/22/21 at 17:00 Trazodone HCl (Desyrel) 100 mg QHS PO Last administered on 06/24/21at 21:08; Start 06/22/21 at 21:00 Atorvastatin Calcium (Lipitor) 80 mg QHS PO Last administered on 06/24/21at 21:08; Start 06/22/21 at 21:00 Hydralazine HCl (Apresoline) 100 mg TID PO Last administered on 06/25/21at 12:13; Start 06/22/21 at 14:00 Insulin Glargine (Lantus Syringe) 24 unit QHS SQ Last administered on 06/23/21at 20:35; Start 06/22/21 at 21:00; Stop 06/24/21 at 10:24; Status DC Non-Formulary Medication (Omeprazole ) 40 mg DAILY PO ; Start 06/23/21 at 09:00; Status UNV Acetaminophen (Tylenol) 650 mg PRN Q6HRS PRN PO MILD PAIN / TEMP > 100.3'F; Start 06/22/21 at 13:00 Al Hydroxide/Mg Hydroxide (Mylanta Plus Xs) 30 ml PRN Q3HRS PRN PO HEARTBURN / GAS; Start 06/22/21 at 13:00 Calcium Carbonate/ Glycine (Tums) 500 mg PRN Q3HRS PRN PO INDIGESTION; Start 06/22/21 at 13:00 Diphenhydramine HCl (Benadryl) 25 mg PRN Q6HRS PRN PO ITCHING; Start 06/22/21 at 13:00 Naloxone HCl (Narcan) 0.1 mg PRN Q2MIN PRN IV SEE COMMENTS; Start 06/22/21 at 13:00 Sodium Chloride (Normal Saline Flush) 3 ml QSHIFT PRN IV AFTER MEDS AND BLOOD DRAWS; Start 06/22/21 at 13:00 Oxycodone/ Acetaminophen (Percocet 5/325) 1 tab PRN Q4HRS PRN PO MILD PAIN, 1ST CHOICE; Start 06/22/21 at 13:00 Oxycodone/ Acetaminophen (Percocet 5/325) 2 tab PRN Q4HRS PRN PO MODERATE PAIN, SEVERE PAIN Last administered on 06/25/21 16:45; Start 06/22/21 at 13:00 Methocarbamol (Robaxin) 750 mg PRN TID PRN PO MUSCLE SPASMS Last administered on 06/23/21 14:22; Start 06/22/21 at 13:00 Docusate Sodium (Colace) 100 mg BID PO Last administered on 06/25/21 09:58; Start 06/22/21 at 21:00 Magnesium Hydroxide (Milk Of Magnesia) 2,400 mg PRN Q12HR PRN PO CONSTIPATION; Start 06/22/21 at 13:00 Ondansetron HCl (Zofran) 4 mg PRN Q6HRS PRN IVP NAUESA, 1ST CHOICE Last administered on 06/22/21at 22:13; Start 06/22/21 at 13:00 Cefazolin Sodium (Ancef) 1 gm Q8HRS IVP Last administered on 06/22/21at 13:55; Start 06/22/21 at 14:00; Stop 06/22/21 at 14:26; Status DC Fentanyl Citrate (Fentanyl 2ml Vial) 50 mcg PRN Q2HR PRN IVP MODERATE TO SEVERE PAIN Last administered on 06/24/21 13:15; Start 06/22/21 at 13:00 Dextrose (Dextrose 50%-Water Syringe) 12.5 gm PRN Q15MIN PRN IV SEE COMMENTS Last administered on 06/24/21 11:24; Start 06/22/21 at 13:00 Cefazolin Sodium (Ancef) 1 gm Q8H IVP Last administered on 12/3/21at 12:25; Start 06/22/21 at 18:00; Stop 06/23/21 at 10:01; Status DC Cefazolin Sodium (Ancef) 1 gm STK-MED ONCE IVP ; Start 06/22/21 at 13:52; Stop 06/22/21 at 14:26; Status DC Hydralazine HCl (Apresoline Inj) 10 mg PRN Q4HRS PRN IVP ELEVATED BP, SEE COMMENTS Last administered on 06/25/21at 16:46; Start 06/22/21 at 17:15 Potassium Bicarbonate (Potassium Effervescent Tablet) 20 meq 1X ONCE PO Last administered on 06/22/21at 17:32; Start 06/22/21 at 17:30; Stop 06/22/21 at 17:31; Status DC Sodium Chloride 1,000 ml @ 50 mls/hr Q20H IV Last administered on 06/24/21at 13:13; Start 06/22/21 at 17:30; Stop 06/24/21 at 17:14; Status DC Insulin Human Lispro (HumaLOG) 0-8 UNITS BIDBFRMEAL SQ ; Start 06/23/21 at 07:30 Sodium Chloride 1,000 ml @ 1,000 mls/hr Q1H PRN IV hypotension; Start 06/23/21 at 08:00; Stop 06/23/21 at 13:59; Status DC Sodium Chloride 1,000 ml @ 400 mls/hr Q2H30M PRN IV PATENCY; Start 06/23/21 at 08:00; Stop 06/23/21 at 19:59; Status DC Info (PHARMACY MONITORING -- do not chart) 1 each PRN DAILY PRN MC SEE COMMENTS; Start 06/23/21 at 08:00 Insulin Glargine (Lantus Syringe) 12 unit QHS SQ ; Start 06/24/21 at 21:00; Stop 06/24/21 at 17:11; Status DC Dextrose 1,000 ml @ 50 mls/hr Q20H IV Last administered on 06/25/21at 10:00; Start 06/24/21 at 17:15 Active Scripts Active Pantoprazole Sodium (Pantoprazole Sodium) 40 Mg Tablet. 40 Mg PO DAILYAC 30 Days Clonidine Tts-1 (Clonidine) 1 Each Patch.tdwk 1 Patch TD SA@0900 28 Days Baclofen 10 Mg Tablet 5 Mg PO TID PRN Renvela (Sevelamer Carbonate) 800 Mg Tablet 800 Mg PO TIDWMEALS 30 Days Reported Humalog (Insulin Lispro) 100 Unit/1 Ml Vial 6 Unit SQ TIDWMEALS Lantus Solostar (Insulin Glargine,Hum.rec.anlog) 100 Unit/1 Ml Insuln.pen 24 Unit SQ QHS Omeprazole 40 Mg Capsule.dr 40 Mg PO DAILY Zenpep 10,000 Units Capsule (Lipase/Protease/Amylase) 1 Each Capsule.dr 3 Cap PO TIDWMEALS Doxazosin Mesylate 4 Mg Tablet 1 Tab PO DAILY Trazodone Hcl 100 Mg Tablet 1 Tab PO QHS Hydrocodone-Acetamin 7.5-325 (Hydrocodone/Acetaminophen) 1 Each Tablet 7.5-325 Mg PO Q6HRS PRN Hydralazine Hcl 100 Mg Tablet 1 Tab PO TID Aspir 81 (Aspirin) 81 Mg Tablet. 1 Tab PO DAILY Atorvastatin Calcium 80 Mg Tablet 1 Tab PO DAILY Vitals/I & O Vital Sign - Last 24 Hours 06/24/21 06/24/21 06/24/21 06/24/21 19:00 20:20 21:08 23:00 Temp 98.7 99.0 98.7 99.0 Pulse 83 78 76 Resp 16 18 B/P (MAP) 172/62 (98) 192/65 194/73 (113) Pulse Ox 90 91 O2 Delivery Nasal Cannula Nasal Cannula Nasal Cannula O2 Flow Rate 2.0 2.0 2.0 06/24/21 06/25/21 06/25/21 06/25/21 23:35 03:00 07:00 07:43 Temp 98.9 98.3 98.9 98.3 Pulse 82 90 76 Resp 18 16 B/P (MAP) 190/66 173/64 (100) 164/61 (95) Pulse Ox 90 97 O2 Delivery Nasal Cannula Room Air Nasal Cannula O2 Flow Rate 2.0 2.0 06/25/21 06/25/21 06/25/21 06/25/21 09:58 09:58 10:02 11:00 Temp 97.2 97.2 Pulse 76 76 76 68 Resp 16 B/P (MAP) 164/61 164/61 164/61 144/60 (88) Pulse Ox 96 O2 Delivery Room Air 06/25/21 06/25/21 06/25/21 12:13 15:00 16:46 Temp 98.3 98.3 Pulse 68 92 92 Resp 16 B/P (MAP) 144/60 170/69 (102) 170/69 Pulse Ox 97 O2 Delivery Room Air Intake and Output 06/24/21 06/24/21 06/25/21 15:00 23:00 07:00 Intake Total 100 ml 410 ml 500 ml Output Total 250 ml Balance 100 ml 160 ml 500 ml Justifications for Admission Other Justification GEOVANNY SERRANO WELDER TACK Jun 25, 2021 17:09
[2021-06-25 19:00] VITALS: BP 169/64
[2021-06-25] MEDS: traZODone 100 MG TABLET. PO SCH (21:36)
[2021-06-25] MEDS: ATORVASTATIN CALCIUM 40 MG TABLET. PO SCH (21:36)
[2021-06-25 23:00] VITALS: BP 184/69
[2021-06-26 03:00] VITALS: BP 157/52
[2021-06-26] MEDS: oxyCODONE/APAP 5/325 1 TAB TABLET PO PRN ×3 (06:25→22:41)
[2021-06-26] MEDS: PANTOPRAZOLE 40 MG TABLET.DR. PO SCH (06:26)
[2021-06-26 07:00] VITALS: BP 159/53
--- NOTE | 2021-06-26 08:49 | PDOC ---
IM PROGRESS NOTES- Subjective Subjective Oral intake and neck pain is improving. He is eating better. Objective Vitals/I&O Vital Signs Date Time Temp Pulse Resp B/P (MAP) Pulse Ox O2 Delivery O2 Flow Rate FiO2 06/26/21 06:25 20 Room Air 06/26/21 03:00 98.4 97 157/52 (87) 90 98.4 06/25/21 07:43 2.0 I & O 06/25/21 06/25/21 06/26/21 15:00 23:00 07:00 Intake Total 240 ml Output Total 400 ml Balance -160 ml Physical Exam Physical Exam General Appearance - alert and in no distress Chest - decreased breath sounds at bases Heart - S1 and S2 normal Abdomen - soft, non tender Neurological - alert and oriented Status post neck surgery. Musculoskeletal - generalized weakness Extremities - no edema Labs Laboratory Tests Test 06/25/21 11:57 06/25/21 17:52 06/25/21 20:48 06/26/21 07:45 Glucose (Fingerstick) 116 mg/dL (70-99) H 148 mg/dL (70-99) H 173 mg/dL (70-99) H 212 mg/dL (70-99) H Assessment Assessment Hypoglycemia 1. Diabetes mellitus type 2, generally uncontrolled, but currently blood sugars are stable. Last hemoglobin A1c was 9.2. He has diabetic nephropathy and neuropathy. 2. Chronic hypoxic respiratory failure, on oxygen by nasal cannula 2 liters per minute. 3. Chronic obstructive pulmonary disease. 4. Hypokalemia. 5. End-stage renal disease, on hemodialysis. 6. Gastroesophageal reflux disease. 7. Coronary artery disease with history of stent placement. 8. Mixed hyperlipidemia. 9. Chronic pancreatitis. 10. Anemia. 11. Physical deconditioning. 12. Osteoarthritis. 13. Chronic back pain. 14. Cervical spinal stenosis and cervical radiculopathy. Status post posterior cervical hemilaminectomy C5-C6 and C6-C7, cervical laminectomy, C3-C4, C4-C5 with posterior instrumentation and fusion C3-C4 and C4-C5. PLAN: Diabetes with hyperglycemia. Patient is eating better. Continue sliding scale insulin only and previously Lantus and scheduled Humalog has been discontinued. Hypokalemia improving. Potassium 3.4. ESRD. Hemodialysis Saturday. Status post neck surgery. Discussed with staff. Clinically improving slowly. Consider discharge home when okay with neurosurgery. Patient does not want to go to a residential. He does not want any home health services. See me in the office in 4 days. COPD-his oxygen saturation dropped today and he was placed on oxygen by nasal cannula 2 L/min. He is on oxygen at home but he has not been using it because he wants to get off the oxygen to qualify for renal transplant. Advised him to use oxygen regularly at home. I will discharge him on oxygen by nasal cannula 2 L/min. Chronic respiratory failure on oxygen by nasal cannula. Continue Percocet for pain control. Change it to Percocet 7.5/325 mg 1 p.o. every 4 hours as needed for pain. Prescription to be sent from the office. Plan Plan For more details regarding further plans, please refer to the orders. Justifications for Admission Other Justification TRINA ALDANA MD Jun 26, 2021 08:49
[2021-06-26] MEDS: LIPASE/PROTEAS/AMYLAS 10/32/42 CAPSULE.DR. PO SCH ×3 (09:02→17:00)
[2021-06-26] MEDS: ASPIRIN ENTERIC COATED 81 MG TABLET.DR. PO SCH (09:02)
[2021-06-26] MEDS: DOCUSATE SODIUM 100 MG CAPSULE. PO SCH ×2 (09:02→22:31)
[2021-06-26] MEDS: DOXAZOSIN MESYLATE 4 MG TABLET. PO SCH (09:03)
[2021-06-26] MEDS: SEVELAMER CARBONATE 800 MG TABLET. PO SCH ×3 (09:03→17:00)
[2021-06-26] MEDS: INSULIN LISPRO 300 UNITS/3 ML VIAL. SQ SCH ×2 (09:08→16:30)
[2021-06-26] MEDS: IV DEXTROSE 5% 1,000 ML IV SCH (09:15)
[2021-06-26] MEDS ORDERED: OXYC1TAB19 PO (09:16)
[2021-06-26] MEDS ORDERED: INSU100I13 SQ (09:16)
[2021-06-26] MEDS ORDERED: INSU100V6 SQ (09:16)
[2021-06-26] MEDS ORDERED: METH-562 PO (09:16)
--- NOTE | 2021-06-26 09:21 | DISCH ---
DISCHARGE INSTRUCTIONS Condition on Discharge Condition on Discharge: Stable Activity After Discharge Activity Instructions for Disc: Activity as tolerated (Walk with walker.) Bathing Instructions: Shower-keep dressing dry Lifting Instructions after Dis: No heavy lifting, No pulling or pushing Exercise Instruction after Dis: Progress as tolerated Weight Bearing Status after Di: As tolerated Diet after Discharge Diet after Discharge: Renal Dialysis (ADA) Diet Texture: Regular Liquid Texture: Thin Liquid Swallowing Supervision: None needed Wound Incision Care Wound/Incision Care: Change dressing Checks after Discharge Checks after discharge: Check blood press - daily, Check blood sugar, ac/hs, Check your Temp as needed DC Comment: Continue hemodialysis Saturday. Contacting the DRPaige after DC Call your doctor for: Concerns you may have Follow-Up Follow up with: Dr. Trina Aldana in 4 days on . Follow Up With: Dr. Pitts and Dr. Riddle Treatment/Equipment after DC Adaptive Equipment Issued: None Discharge Respiratory Equipmen: Oxygen (Oxygen by nasal cannula 2 L/min) Comment: Hold insulin if blood sugar less than 100 . TRINA ALDANA MD Jun 26, 2021 09:21
--- NOTE | 2021-06-26 12:57 | PDOC ---
PROGRESS NOTES Date of Service DATE: 06/26/21 TIME: 12:55 Subjective Subjective POD #4 S/P Cervical laminectomy and fusion awake, alert,sitting up in bed post op incision pain arms and legs feel much better Objective Objective Vital Signs Date Time Temp Pulse Resp B/P (MAP) Pulse Ox O2 Delivery O2 Flow Rate FiO2 06/26/21 09:05 97 157/52 06/26/21 08:00 Nasal Cannula 2.0 06/26/21 07:00 98.8 16 74 98.8 Intake and Output 06/26/21 07:00 Intake Total 240 ml Output Total 400 ml Balance -160 ml Intake Oral 240 ml Output Urine Total 400 ml # Voids 4 Physical Exam General: Oriented X3, Cooperative Neuro: Strength at 5/5 X4 ext Skin: Other (dressnig C,D,I) Plan Plan of Care dialysis today PT possible dc later today or tomorrow morning D/W RN Comment Review of Relevant I have reviewed the following items donell (where applicable) has been applied. Labs Laboratory Tests Test 06/24/21 15:59 06/24/21 16:11 06/24/21 20:17 06/25/21 07:55 Glucose (Fingerstick) 61 mg/dL (70-99) 116 mg/dL (70-99) 82 mg/dL (70-99) 85 mg/dL (70-99) Test 06/25/21 11:57 06/25/21 17:52 06/25/21 20:48 06/26/21 07:45 Glucose (Fingerstick) 116 mg/dL (70-99) 148 mg/dL (70-99) 173 mg/dL (70-99) 212 mg/dL (70-99) Test 06/26/21 11:38 Glucose (Fingerstick) 208 mg/dL (70-99) Laboratory Tests Test 06/25/21 17:52 06/25/21 20:48 06/26/21 07:45 06/26/21 11:38 Glucose (Fingerstick) 148 mg/dL (70-99) 173 mg/dL (70-99) 212 mg/dL (70-99) 208 mg/dL (70-99) Medications Current Medications Cefazolin Sodium 1 gm/Sodium Chloride 1,000 ml @ 1,000 mls/hr 1X ONCE IRR Last administered on 06/22/21at 09:59; Start 06/22/21 at 06:00; Stop 06/22/21 at 06:59; Status DC Fentanyl Citrate (Fentanyl 2ml Vial) 25 mcg PRN Q5MIN PRN IVP MILD PAIN 1-3; Start 06/22/21 at 06:00; Stop 06/23/21 at 05:59; Status DC Fentanyl Citrate (Fentanyl 2ml Vial) 50 mcg PRN Q5MIN PRN IVP MODERATE PAIN 4-6 Last administered on 06/22/21at 13:55; Start 06/22/21 at 06:00; Stop 06/23/21 at 05:59; Status DC Ringer's Solution 1,000 ml @ 30 mls/hr Q24H IV ; Start 06/22/21 at 06:00; Stop 06/22/21 at 17:59; Status DC Prochlorperazine Edisylate (Compazine) 5 mg PACU PRN PRN IVP NAUSEA, MRX1; Start 06/22/21 at 06:00; Stop 06/23/21 at 05:59; Status DC Cefazolin Sodium/ Dextrose 50 ml @ 100 mls/hr 1X PREOP PRN IV PRIOR TO PROCEDURE Last administered on 06/22/21at 09:45; Start 06/22/21 at 06:00; Stop 06/22/21 at 18:00; Status DC Gelatin (Gelfoam Size 100) 1 each STK-MED ONCE .ROUTE Last administered on 06/22/21 09:59; Start 06/22/21 at 06:45; Stop 06/22/21 at 06:45; Status DC Bupivacaine HCl/ Epinephrine Bitart (Sensorcain-Epi 0.5% Kit) 30 ml STK-MED ONCE .ROUTE Last administered on 06/22/21at 09:59; Start 06/22/21 at 06:45; Stop 06/22/21 at 06:45; Status DC Ketorolac Tromethamine (Toradol Im) 60 mg STK-MED ONCE .ROUTE Last administered on 06/22/21 09:59; Start 06/22/21 at 06:45; Stop 06/22/21 at 06:45; Status DC Thrombin 20,000 unit STK-MED ONCE TP Last administered on 06/22/21at 09:59; Start 06/22/21 at 06:45; Stop 06/22/21 at 06:45; Status DC Propofol (Diprivan) 200 mg STK-MED ONCE IV ; Start 06/22/21 at 05:16; Stop 06/22/21 at 07:16; Status DC Lidocaine HCl (Lidocaine Pf 2% Vial) 5 ml STK-MED ONCE .ROUTE ; Start 06/22/21 at 05:16; Stop 06/22/21 at 07:16; Status DC Propofol 50 ml @ As Directed STK-MED ONCE IV ; Start 06/22/21 at 05:16; Stop 06/22/21 at 07:16; Status DC Fentanyl Citrate (Fentanyl 2ml Vial) 100 mcg STK-MED ONCE .ROUTE ; Start 06/22/21 at 05:16; Stop 06/22/21 at 07:17; Status DC Succinylcholine Chloride (Anectine) 200 mg STK-MED ONCE .ROUTE ; Start 06/22/21 at 05:17; Stop 06/22/21 at 07:17; Status DC Rocuronium [place] (Zemuron) 50 mg STK-MED ONCE .ROUTE ; Start 06/22/21 at 05:17; Stop 06/22/21 at 07:17; Status DC Midazolam HCl (Versed) 2 mg STK-MED ONCE .ROUTE ; Start 06/22/21 at 05:17; Stop 06/22/21 at 07:17; Status DC Remifentanil HCl (Ultiva) 2 mg STK-MED ONCE IV ; Start 06/22/21 at 05:17; Stop 06/22/21 at 07:18; Status DC Phenylephrine HCl (PHENYLEPHRINE in 0.9% NACL PF) 1 mg STK-MED ONCE IV ; Start 06/22/21 at 05:18; Stop 06/22/21 at 07:19; Status DC Phenylephrine HCl (Ariel-Synephrine Inj) 10 mg STK-MED ONCE .ROUTE ; Start 06/22/21 at 05:18; Stop 06/22/21 at 07:19; Status DC Insulin Human Lispro (HumaLOG VIAL for OP,RR ONLY) 0-10 units PRN Q1HR PRN SQ PER PROTOCOL Last administered on 06/22/21at 08:07; Start 06/22/21 at 07:30; Stop 06/23/21 at 07:29; Status DC Ephedrine Sulfate (ePHEDrine PF IN SALINE SYRINGE) 50 mg STK-MED ONCE IV ; Start 06/22/21 at 05:41; Stop 06/22/21 at 07:41; Status DC Phenylephrine HCl (Ariel-Synephrine Inj) 10 mg STK-MED ONCE .ROUTE ; Start 06/22/21 at 05:43; Stop 06/22/21 at 07:43; Status DC Sodium Chloride 1,000 ml @ 0 mls/hr Q0M IV Last administered on 06/22/21at 07:46; Start 06/22/21 at 07:45; Stop 06/23/21 at 09:42; Status DC Propofol 50 ml @ As Directed STK-MED ONCE IV ; Start 06/22/21 at 08:27; Stop 06/22/21 at 10:27; Status DC Hydromorphone HCl (Dilaudid) 2 mg STK-MED ONCE .ROUTE ; Start 06/22/21 at 09:40; Stop 06/22/21 at 11:40; Status DC Glycopyrrolate (Robinul) 1 mg STK-MED ONCE .ROUTE ; Start 06/22/21 at 09:44; Stop 06/22/21 at 11:44; Status DC Neostigmine [place] (Neostigmine Methylsulfate) 5 mg STK-MED ONCE .ROUTE ; Start 06/22/21 at 09:44; Stop 06/22/21 at 11:45; Status DC Sevoflurane (Ultane) 90 ml STK-MED ONCE IH ; Start 06/22/21 at 09:58; Stop 06/22/21 at 11:58; Status DC Aspirin (Ecotrin) 81 mg DAILY PO Last administered on 06/26/21at 09:02; Start 06/23/21 at 09:00 Baclofen (Lioresal) 5 mg PRN TID PRN PO MUSCLE SPASMS; Start 06/22/21 at 12:45 Clonidine HCl (Catapres Tts-1) 1 patch Sa@0900 TD Last administered on 06/24/21at 09:06; Start 06/24/21 at 09:00 Doxazosin Mesylate (Cardura) 4 mg DAILY PO Last administered on 06/26/21at 09:03; Start 06/22/21 at 14:00 Insulin Human Lispro (HumaLOG) 6 units TIDWMEALS SQ ; Start 06/22/21 at 17:00; Stop 06/24/21 at 10:24; Status DC Amylase/Lipase/ Protease (Zenpep 10,000) 3 cap TIDWMEALS PO Last administered on 06/26/21at 12:38; Start 06/22/21 at 17:00 Pantoprazole Sodium (Protonix) 40 mg DAILYAC PO Last administered on 06/26/21at 06:26; Start 06/22/21 at 16:30 Sevelamer Carbonate (Renvela) 800 mg TIDWMEALS PO Last administered on 06/26/21at 12:38; Start 06/22/21 at 17:00 Trazodone HCl (Desyrel) 100 mg QHS PO Last administered on 06/25/21at 21:36; Start 06/22/21 at 21:00 Atorvastatin Calcium (Lipitor) 80 mg QHS PO Last administered on 06/25/21at 21:36; Start 06/22/21 at 21:00 Hydralazine HCl (Apresoline) 100 mg TID PO Last administered on 06/26/21at 09:05; Start 06/22/21 at 14:00 Insulin Glargine (Lantus Syringe) 24 unit QHS SQ Last administered on 06/23/21at 20:35; Start 06/22/21 at 21:00; Stop 06/24/21 at 10:24; Status DC Non-Formulary Medication (Omeprazole ) 40 mg DAILY PO ; Start 06/23/21 at 09:00; Status UNV Acetaminophen (Tylenol) 650 mg PRN Q6HRS PRN PO MILD PAIN / TEMP > 100.3'F; Start 06/22/21 at 13:00 Al Hydroxide/Mg Hydroxide (Mylanta Plus Xs) 30 ml PRN Q3HRS PRN PO HEARTBURN / GAS; Start 06/22/21 at 13:00 Calcium Carbonate/ Glycine (Tums) 500 mg PRN Q3HRS PRN PO INDIGESTION; Start 06/22/21 at 13:00 Diphenhydramine HCl (Benadryl) 25 mg PRN Q6HRS PRN PO ITCHING; Start 06/22/21 at 13:00 Naloxone HCl (Narcan) 0.1 mg PRN Q2MIN PRN IV SEE COMMENTS; Start 06/22/21 at 13:00 Sodium Chloride (Normal Saline Flush) 3 ml QSHIFT PRN IV AFTER MEDS AND BLOOD DRAWS; Start 06/22/21 at 13:00 Oxycodone/ Acetaminophen (Percocet 5/325) 1 tab PRN Q4HRS PRN PO MILD PAIN, 1ST CHOICE; Start 06/22/21 at 13:00 Oxycodone/ Acetaminophen (Percocet 5/325) 2 tab PRN Q4HRS PRN PO MODERATE PAIN, SEVERE PAIN Last administered on 06/26/21at 12:41; Start 06/22/21 at 13:00 Methocarbamol (Robaxin) 750 mg PRN TID PRN PO MUSCLE SPASMS Last administered on 06/23/21at 14:22; Start 06/22/21 at 13:00 Docusate Sodium (Colace) 100 mg BID PO Last administered on 06/26/21at 09:02; Start 06/22/21 at 21:00 Magnesium Hydroxide (Milk Of Magnesia) 2,400 mg PRN Q12HR PRN PO CONSTIPATION; Start 06/22/21 at 13:00 Ondansetron HCl (Zofran) 4 mg PRN Q6HRS PRN IVP NAUESA, 1ST CHOICE Last administered on 06/22/21at 22:13; Start 06/22/21 at 13:00 Cefazolin Sodium (Ancef) 1 gm Q8HRS IVP Last administered on 06/22/21at 13:55; Start 06/22/21 at 14:00; Stop 06/22/21 at 14:26; Status DC Fentanyl Citrate (Fentanyl 2ml Vial) 50 mcg PRN Q2HR PRN IVP MODERATE TO SEVERE PAIN Last administered on 06/24/21at 13:15; Start 06/22/21 at 13:00 Dextrose (Dextrose 50%-Water Syringe) 12.5 gm PRN Q15MIN PRN IV SEE COMMENTS Last administered on 06/24/21at 11:24; Start 06/22/21 at 13:00 Cefazolin Sodium (Ancef) 1 gm Q8H IVP Last administered on 06/23/21at 12:25; Start 06/22/21 at 18:00; Stop 06/23/21 at 10:01; Status DC Cefazolin Sodium (Ancef) 1 gm STK-MED ONCE IVP ; Start 06/22/21 at 13:52; Stop 06/22/21 at 14:26; Status DC Hydralazine HCl (Apresoline Inj) 10 mg PRN Q4HRS PRN IVP ELEVATED BP, SEE COMMENTS Last administered on 06/25/21at 16:46; Start 06/22/21 at 17:15 Potassium Bicarbonate (Potassium Effervescent Tablet) 20 meq 1X ONCE PO Last administered on 06/22/21at 17:32; Start 06/22/21 at 17:30; Stop 06/22/21 at 17:31; Status DC Sodium Chloride 1,000 ml @ 50 mls/hr Q20H IV Last administered on 06/24/21at 13:13; Start 06/22/21 at 17:30; Stop 06/24/21 at 17:14; Status DC Insulin Human Lispro (HumaLOG) 0-8 UNITS BIDBFRMEAL SQ Last administered on 06/26/21at 09:08; Start 06/23/21 at 07:30 Sodium Chloride 1,000 ml @ 1,000 mls/hr Q1H PRN IV hypotension; Start 06/23/21 at 08:00; Stop 06/23/21 at 13:59; Status DC Sodium Chloride 1,000 ml @ 400 mls/hr Q2H30M PRN IV PATENCY; Start 06/23/21 at 08:00; Stop 06/23/21 at 19:59; Status DC Info (PHARMACY MONITORING -- do not chart) 1 each PRN DAILY PRN [facility]OM[facility] CRUZ NTS; Start 06/23/21 at 08:00 Insulin Glargine (Lantus Syringe) 12 unit QHS SQ ; Start 06/24/21 at 21:00; Stop 06/24/21 at 17:11; Status DC Dextrose 1,000 ml @ 50 mls/hr Q20H IV Last administered on 06/25/21at 10:00; Start 06/24/21 at 17:15 Active Scripts Active Percocet 7.5-325 Mg Tablet (Oxycodone/Acetaminophen) 1 Each Tablet 1 Tab PO PRN Q6HRS PRN Methocarbamol 750 Mg Tablet 750 Mg PO PRN TID PRN 10 Days Humalog (Insulin Lispro) 100 Unit/1 Ml Vial 2 Unit SQ TIDWMEALS Hold if blood sugar less than 100 or if not eating. Lantus Solostar (Insulin Glargine,Hum.rec.anlog) 100 Unit/1 Ml Insuln.pen 6 Unit SQ QHS Hold if glucose less than 100. Hold if not eating. Pantoprazole Sodium (Pantoprazole Sodium) 40 Mg Tablet. 40 Mg PO DAILYAC 30 Days Clonidine Tts-1 (Clonidine) 1 Each Patch.tdwk 1 Patch TD SA@0900 28 Days Baclofen 10 Mg Tablet 5 Mg PO TID PRN Renvela (Sevelamer Carbonate) 800 Mg Tablet 800 Mg PO TIDWMEALS [address] 10,000 Units Capsule (Lipase/Protease/Amylase) 1 Each Capsule. 3 Cap PO TIDWMEALS Doxazosin Mesylate 4 Mg Tablet 1 Tab PO DAILY Trazodone Hcl 100 Mg Tablet 1 Tab PO QHS Hydralazine Hcl 100 Mg Tablet 1 Tab PO TID Aspir 81 (Aspirin) 81 Mg Tablet. 1 Tab PO DAILY Atorvastatin Calcium 80 Mg Tablet 1 Tab PO DAILY Vitals/I & O Vital Sign - Last 24 Hours 06/25/21 06/25/21 06/25/21 06/25/21 15:00 16:46 19:00 20:00 Temp 98.3 98.4 98.3 98.4 Pulse 92 92 94 Resp 16 18 B/P (MAP) 170/69 (102) 170/69 169/64 (99) Pulse Ox 97 92 O2 Delivery Room Air Room Air Room Air 06/25/21 06/25/21 06/26/21 06/26/21 21:36 23:00 03:00 06:25 Temp 98.6 98.4 98.6 98.4 Pulse 94 96 97 Resp 18 16 20 B/P (MAP) 169/64 184/69 (107) 157/52 (87) Pulse Ox 92 90 O2 Delivery Room Air Room Air Room Air 06/26/21 06/26/21 06/26/21 06/26/21 06:55 07:00 08:00 09:03 Temp 98.8 98.8 Pulse 79 97 Resp 20 16 B/P (MAP) 159/53 (88) 157/52 Pulse Ox 74 O2 Delivery Room Air Room Air Nasal Cannula O2 Flow Rate 2.0 06/26/21 09:05 Pulse 97 B/P (MAP) 157/52 Intake and Output 06/25/21 06/25/21 06/26/21 15:00 23:00 07:00 Intake Total 240 ml Output Total 400 ml Balance -160 ml Justifications for Admission Other Justification GEOVANNY SERRANO [employer] Jun 26, 2021 12:57
[2021-06-26] MEDS ORDERED: DIALYSIS PATIENT. MC PRN ×2 (13:00)
[2021-06-26] MEDS ORDERED: IV NORMAL SALINE 1000ML BAG 1,000 ML IV PRN ×2 (13:00)
[2021-06-26 13:45] VITALS: BP 109/63
[2021-06-26] MEDS ORDERED: LIDOCAINE 1% PF 2 ML VIAL. ID STA (14:01)
[2021-06-26 14:09] LABS: CALCIUM 7.9 mg/dL (8.5-10.1); CREATININE 6.6 mg/dL (0.7-1.3); GFR 10.7; POTASSIUM 3.7 mmol/L (3.5-5.1)
--- NOTE | 2021-06-26 16:23 | PDOC ---
Renal-Progress Notes Subjective Notes Notes NO NEW COMPLAINTS History of Present Illness Hx of present illness STABLE, PAIN IS BETTER Vitals Vitals Vital Signs Date Time Temp Pulse Resp B/P (MAP) Pulse Ox O2 Delivery O2 Flow Rate FiO2 06/26/21 13:45 99.0 72 16 109/63 (78) 94 Room Air 99.0 06/26/21 08:00 2.0 Weight Weight [ ] I.O. Intake and Output Intake and Output 06/26/21 06:59 Intake Total 240 ml Output Total 400 ml Balance -160 ml Intake Oral 240 ml Output Urine Total 400 ml # Voids 4 Labs Labs Laboratory Tests Test 06/25/21 17:52 06/25/21 20:48 06/26/21 07:45 06/26/21 11:38 Glucose (Fingerstick) 148 mg/dL (70-99) 173 mg/dL (70-99) 212 mg/dL (70-99) 208 mg/dL (70-99) Test 06/26/21 13:30 Sodium Level 126 mmol/L (136-145) Potassium Level 3.7 mmol/L (3.5-5.1) Chloride Level 89 mmol/L (98-107) Carbon Dioxide Level 24 mmol/L (21-32) Anion Gap 13 (6-14) Blood Urea Nitrogen 36 mg/dL (8-26) Creatinine 6.6 mg/dL (0.7-1.3) Estimated GFR (Cockcroft-Gault) 10.7 Glucose Level 221 mg/dL (70-99) Calcium Level 7.9 mg/dL (8.5-10.1) Review of Systems Constitutional: yes: alert, oriented Ears/Nose/Throat: Yes: no symptom reported Eyes: Yes: no symptom reported Pulmonary: Yes no symptom reported Cardiovascular: Yes no symptom reported Gastrointestional: Yes: no symptom reported Genitourinary: Yes: no symptom reported Musculoskeletal: Yes: muscle stiffness, neck pain Skin: Yes no symptom reported Psychiatric/Neurological: Yes: no symptom reported Endocrine: Yes: no symptom reported Hematologic/Lymphatic: Yes: no symptom reported Physical Exam General Appearance: no apparent distress, afebrile Skin: warm Respiratory: bilateral CTA Heart: S1S2 Abdomen: soft, bowel sounds present Genitourinary: bladder flat Extremities: pulses present Neurology: alert, oriented Assessment Assessment [id number] ARM AV ACCESS MILD HYPOKALEMIA S/P CERVICAL LAMINECTOMY ANEMIA OF ESRD DM II HTN PLAN LUCHO NEEDED HD TODAY UF TO SARAH AIKEN MD Jun 26, 2021 16:23
--- NOTE | 2021-06-26 18:08 | NUR ---
returned from dialysis. they pulled off 3 kilos. blood pressure is 164/67. resting with eyes closed.
[2021-06-26 19:00] VITALS: BP 173/71
[2021-06-26] MEDS: traZODone 100 MG TABLET. PO SCH (22:30)
[2021-06-26] MEDS: ATORVASTATIN CALCIUM 40 MG TABLET. PO SCH (22:30)
[2021-06-26 23:30] VITALS: BP 152/67
[2021-06-27 03:00] VITALS: BP 155/58
[2021-06-27 07:00] VITALS: BP 190/66
[2021-06-27] MEDS: LIPASE/PROTEAS/AMYLAS 10/32/42 CAPSULE.DR. PO SCH ×2 (08:58→11:47)
[2021-06-27] MEDS: SEVELAMER CARBONATE 800 MG TABLET. PO SCH ×2 (08:58→11:47)
[2021-06-27] MEDS: DOXAZOSIN MESYLATE 4 MG TABLET. PO SCH (08:58)
[2021-06-27] MEDS: ASPIRIN ENTERIC COATED 81 MG TABLET.DR. PO SCH (08:58)
[2021-06-27] MEDS: DOCUSATE SODIUM 100 MG CAPSULE. PO SCH (08:58)
[2021-06-27] MEDS: PANTOPRAZOLE 40 MG TABLET.DR. PO SCH (08:58)
[2021-06-27] MEDS: oxyCODONE/APAP 5/325 1 TAB TABLET PO PRN ×2 (08:59→11:49)
[2021-06-27] MEDS: INSULIN LISPRO 300 UNITS/3 ML VIAL. SQ SCH (09:05)
--- NOTE | 2021-06-27 10:05 | PDOC ---
IM PROGRESS NOTES- Subjective Subjective Oral intake and neck pain is improving. He is eating better. Objective Vitals/I&O Vital Signs Date Time Temp Pulse Resp B/P (MAP) Pulse Ox O2 Delivery O2 Flow Rate FiO2 06/27/21 08:59 61 190/66 06/27/21 07:00 98.5 16 92 Nasal Cannula 2.0 98.5 I & O 06/26/21 06/26/21 06/27/21 15:00 23:00 07:00 Intake Total 600 ml Output Total 200 ml Balance 600 ml -200 ml Physical Exam Physical Exam General Appearance - alert and in no distress Chest - decreased breath sounds at bases Heart - S1 and S2 normal Abdomen - soft, non tender Neurological - alert and oriented Musculoskeletal - generalized weakness Extremities - no edema Labs Laboratory Tests Test 06/26/21 11:38 06/26/21 13:30 06/26/21 20:56 06/27/21 07:12 Glucose (Fingerstick) 208 mg/dL (70-99) H 184 mg/dL (70-99) H 276 mg/dL (70-99) H Sodium Level 126 mmol/L (136-145) L Potassium Level 3.7 mmol/L (3.5-5.1) Chloride Level 89 mmol/L (98-107) L Carbon Dioxide Level 24 mmol/L (21-32) Anion Gap 13 (6-14) Blood Urea Nitrogen 36 mg/dL (8-26) H Creatinine 6.6 mg/dL (0.7-1.3) H Estimated GFR (Cockcroft-Gault) 10.7 Glucose Level 221 mg/dL (70-99) H Calcium Level 7.9 mg/dL (8.5-10.1) L Laboratory Tests 06/26/21 13:30 Meds Current Medications Medications (Trade) Dose Ordered Sig/Ravinder Route PRN Reason Start Time Stop Time Status Last Admin Dose Admin Lidocaine HCl (Xylocaine-Mpf 1% 2ml Vial) 2 ml 1X STAT ID 06/26/21 14:01 06/26/21 14:07 DC 06/26/21 14:26 Assessment Assessment Hypoglycemia 1. Diabetes mellitus type 2, generally uncontrolled, but currently blood sugars are stable. Last hemoglobin A1c was 9.2. He has diabetic nephropathy and neuropathy. 2. Chronic hypoxic respiratory failure, on oxygen by nasal cannula 2 liters per minute. 3. Chronic obstructive pulmonary disease. 4. Hypokalemia. 5. End-stage renal disease, on hemodialysis. 6. Gastroesophageal reflux disease. 7. Coronary artery disease with history of stent placement. 8. Mixed hyperlipidemia. 9. Chronic pancreatitis. 10. Anemia. 11. Physical deconditioning. 12. Osteoarthritis. 13. Chronic back pain. 14. Cervical spinal stenosis and cervical radiculopathy. Status post posterior cervical hemilaminectomy C5-C6 and C6-C7, cervical laminectomy, C3-C4, C4-C5 with posterior instrumentation and fusion C3-C4 and C4-C5. PLAN: Diabetes with hyperglycemia. Patient is eating better. Restart low-dose sched uled insulin with Humalog and Lantus. Hypokalemia improving. Hyponatremia. Discussed with Dr. Riddle about hyponatremia and blood pressure. Hyponatremia likely corrected with dialysis. ESRD. Hemodialysis Saturday. Status post neck surgery. Discussed with staff. Clinically improving slowly. Consider discharge home when okay with neurosurgery. Patient does not want to go to a detention. He does not want any home health services. See me in the office in 4 days. COPD-his oxygen saturation dropped today and he was placed on oxygen by nasal cannula 2 L/min. He is on oxygen at home but he has not been using it because he wants to get off the oxygen to qualify for renal transplant. Advised him to use oxygen regularly at home. I will discharge him on oxygen by nasal cannula 2 L/min. Chronic respiratory failure on oxygen by nasal cannula. Continue Percocet for pain control. Change it to Percocet 7.5/325 mg 1 p.o. every 6 hours as needed for pain. Prescription to be sent from the office. D/w staff. Give Lantus 6 units extra dose this AM. See me in office in 1 week. Plan Plan For more details regarding further plans, please refer to the orders. Justifications for Admission Other Justification TRINA ALDANA MD Jun 27, 2021 10:05
[2021-06-27] MEDS ORDERED: INSULIN GLARGINE SYRINGE. SQ ONE (10:30)
[2021-06-27] MEDS ORDERED: DEXTROSE 50% 25 GM / 50ML DISP.SYRIN. IV PRN (10:30)
--- NOTE | 2021-06-27 10:43 | PDOC ---
Renal-Progress Notes Subjective Notes Notes FEELING BETTER History of Present Illness Hx of present illness STABLE Vitals Vitals Vital Signs Date Time Temp Pulse Resp B/P (MAP) Pulse Ox O2 Delivery O2 Flow Rate FiO2 06/27/21 08:59 61 190/66 06/27/21 07:00 98.5 16 92 Nasal Cannula 2.0 98.5 Weight Weight [ ] I.O. Intake and Output Intake and Output 06/27/21 07:00 Intake Total 600 ml Output Total 200 ml Balance 400 ml Intake Oral 600 ml Output Urine Total 200 ml Labs Labs Laboratory Tests Test 06/26/21 11:38 06/26/21 13:30 06/26/21 20:56 06/27/21 07:12 Glucose (Fingerstick) 208 mg/dL (70-99) 184 mg/dL (70-99) 276 mg/dL (70-99) Sodium Level 126 mmol/L (136-145) Potassium Level 3.7 mmol/L (3.5-5.1) Chloride Level 89 mmol/L (98-107) Carbon Dioxide Level 24 mmol/L (21-32) Anion Gap 13 (6-14) Blood Urea Nitrogen 36 mg/dL (8-26) Creatinine 6.6 mg/dL (0.7-1.3) Estimated GFR (Cockcroft-Gault) 10.7 Glucose Level 221 mg/dL (70-99) Calcium Level 7.9 mg/dL (8.5-10.1) Review of Systems Constitutional: yes: alert, oriented Ears/Nose/Throat: Yes: no symptom reported Eyes: Yes: no symptom reported Pulmonary: Yes no symptom reported Cardiovascular: Yes no symptom reported Gastrointestional: Yes: no symptom reported Genitourinary: Yes: no symptom reported Musculoskeletal: Yes: muscle stiffness, neck pain Skin: Yes no symptom reported Psychiatric/Neurological: Yes: no symptom reported Endocrine: Yes: no symptom reported Hematologic/Lymphatic: Yes: no symptom reported Physical Exam General Appearance: no apparent distress, afebrile Skin: warm Respiratory: bilateral CTA Heart: S1S2 Abdomen: soft, bowel sounds present Genitourinary: bladder flat Extremities: pulses present Neurology: alert, oriented Assessment Assessment [id number] ARM AV ACCESS MILD HYPOKALEMIA S/P CERVICAL LAMINECTOMY ANEMIA OF ESRD DM II HTN PLAN [facility] NEEDED HD TOMORROW PROB D/C TODAY D/W ATTENDING SARAH VILLEGAS MD Jun 27, 2021 10:43
[2021-06-27 11:00] VITALS: BP 147/60
[2021-06-27] MEDS ORDERED: INSULIN LISPRO 300 UNITS/3 ML VIAL. SQ SCH ×2 (12:00)
[2021-06-27] MEDS ORDERED: cloNIDine TTS-1 1 PATCH PATCH.TDWK TD SCH (13:00)
--- NOTE | 2021-06-27 13:07 | NUR ---
reviewing discharge instructions with Arnulfo. instruction on incisional care, follow up with Dr. Valadez and Shyam. reviewed new medications and changes in his insulin. dressings given for dressing changes. verbalized understanding of these instructions
--- NOTE | 2021-06-27 14:30 | NUR ---
dismissed to home with mother. dressings and personal belongings home ; no questions
[2021-06-27] MEDS ORDERED: INSULIN GLARGINE SYRINGE. SQ SCH (21:00)
== END 2021-06-27 15:05 | disposition home or self-care (01) | DRG 471 ==
LOC: OPSVCIP 06-22 06:12 → 4 NORTH 06-22 14:22
PROVIDERS: ADMIT Neurological Surgery; ATTEND Neurological Surgery
PROC: 01N10ZZ Release Cervical Nerve, Open Approach (ICD-10-PCS; 2021-06-22)
PROC: 4A11X4G Monitoring of Peripheral Nervous Electrical Activity, Intraoperative, External Approach (ICD-10-PCS; 2021-06-22)
PROC: 0RG10J1 Fusion of Cervical Vertebral Joint with Synthetic Substitute, Posterior Approach, Posterior Column, Open Approach (ICD-10-PCS; principal; 2021-06-22 08:30)
DX: M48.02 Spinal stenosis, cervical region (principal); N18.6 End stage renal disease; I12.0 Hypertensive chronic kidney disease with stage 5 chronic kidney disease or end stage renal disease; J96.11 Chronic respiratory failure with hypoxia; K86.0 Alcohol-induced chronic pancreatitis; E87.1 Hypo-osmolality and hyponatremia; E87.6 Hypokalemia; D63.1 Anemia in chronic kidney disease; E11.22 Type 2 diabetes mellitus with diabetic chronic kidney disease; E11.40 Type 2 diabetes mellitus with diabetic neuropathy, unspecified; E11.649 Type 2 diabetes mellitus with hypoglycemia without coma; E78.2 Mixed hyperlipidemia; F17.210 Nicotine dependence, cigarettes, uncomplicated; G89.29 Other chronic pain; I25.10 Atherosclerotic heart disease of native coronary artery without angina pectoris; I25.2 Old myocardial infarction; J44.9 Chronic obstructive pulmonary disease, unspecified; K21.9 Gastro-esophageal reflux disease without esophagitis; M19.90 Unspecified osteoarthritis, unspecified site; M54.12 Radiculopathy, cervical region; Z82.0 Family history of epilepsy and other diseases of the nervous system; Z82.49 Family history of ischemic heart disease and other diseases of the circulatory system; Z83.3 Family history of diabetes mellitus; Z86.16 Personal history of COVID-19; Z90.49 Acquired absence of other specified parts of digestive tract; Z87.01 Personal history of pneumonia (recurrent); Z91.14 Patient's other noncompliance with medication regimen; Z95.5 Presence of coronary angioplasty implant and graft; Z99.2 Dependence on renal dialysis; Z99.81 Dependence on supplemental oxygen; F41.9 Anxiety disorder, unspecified; E11.42 Type 2 diabetes mellitus with diabetic polyneuropathy; Z79.899 Other long term (current) drug therapy; Z79.4 Long term (current) use of insulin; Z88.8 Allergy status to other drugs, medicaments and biological substances
CPT/HCPCS: 36415; 76000; 80048; 80053; 82962; 85025; 85610; 85730; 86850; 86900; 86901; 88304; 88311; A4213; A4222; A4223; A4314; A4364; A4556; A4657; A4930; A6257; C1713; J0330; J0360; J0690; J1170; J1815; J1885; J2250; J2370; J2405; J2704; J2710; J3010; J3490; J7030; J7060; J7120; 97110-GP; 97116-GP; 97530-GP; G0378

== ENCOUNTER → 2021-06-13 | Outpatient (CLI) | payer BC ==
[2021-05-01 08:22] VITALS: BP 159/59
[~2021-06-13] MED LIST changes: +INSU100V6 SQ; +METH-562 PO; +OMEP40CA7 PO; +OXYC1TAB19 PO
[2021-06-13 14:02] LABS: BASO # 0.1 x10^3/uL (0.0-0.2); BASO % 1 % (0-3); EOS # 0.2 x10^3/uL (0.0-0.7); EOS % 2 % (0-3); HEMATOCRIT 34.8 % (39.0-53.0); HEMOGLOBIN 11.3 g/dL (13.0-17.5); LYMPH # 1.7 x10^3/uL (1.0-4.8); LYMPH % 16 % (24-48); MEAN CORPUSCULAR HEMOGLOBIN 27 pg (25-35); MEAN CORPUSCULAR HGB CONC 32 g/dL (31-37); MEAN CORPUSCULAR VOLUME 84 fL (79-100); MONO # 0.6 x10^3/uL (0.0-1.1); MONO % 6 % (0-9); NEUT # 8.5 x10^3/uL (1.8-7.7); NEUT % 76 % (31-73); PLATELET COUNT 291 x10^3/uL (140-400); RED BLOOD COUNT 4.12 x10^6/uL (4.30-5.70); RED CELL DISTRIBUTION WIDTH 16.1 % (11.5-14.5); WHITE BLOOD COUNT 11.2 x10^3/uL (4.0-11.0)
[2021-06-13 14:09] LABS: PROTHROMBIN TIME PATIENT 14.2 SEC (11.7-14.0)
[2021-06-13 14:35] LABS: ALBUMIN 3.3 g/dL (3.4-5.0); ALBUMIN/GLOBULIN RATIO 0.9 (1.0-1.7); CALCIUM 8.4 mg/dL (8.5-10.1); CREATININE 3.2 mg/dL (0.7-1.3); GFR 24.6; POTASSIUM 3.3 mmol/L (3.5-5.1); TOTAL BILIRUBIN 0.3 mg/dL (0.2-1.0); TOTAL PROTEIN 6.9 g/dL (6.4-8.2)
[2021-06-20 03:08] LABS: HEMOGLOBIN A1C 8.9 % (4.8-5.6)
== END ==
LOC: SURGPAT 13:19
PROVIDERS: ATTEND Neurological Surgery
DX: Z01.812 Encounter for preprocedural laboratory examination (principal); M48.02 Spinal stenosis, cervical region; M54.12 Radiculopathy, cervical region
CPT/HCPCS: 36415; 80053; 83036; 85025; 85610; 85730; 87641

== ENCOUNTER 2021-09-06 01:36 | Inpatient (IN) | payer BC ==
[~2021-09-06] VITALS: Ht 165.1 cm; Wt 68.0 kg
--- NOTE | 2021-09-06 02:12 | ED.ADGEN ---
Past Medical History Past Medical History: Cancer, Diabetes-Type II, High Cholesterol, Hypertension, RI, Pancreatitis, Other Additional Past Medical Histor: Post covid 19 Past Surgical History: Other Additional Past Surgical Histo: left arm fistula Smoking Status: Former Smoker Alcohol Use: None Drug Use: None General Adult HPI: HPI: Patient is a 56 year old male coming in from home for low blood sugar reading at home. Patient states he has felt like his heart was racing and checked his blood sugar which was 39, had some candy to try to bring it up. Patient says he does not feel right and has chest pain. Patient states yesterday he had breakfast and threw it up, then had ribs for dinner prior to taking his Lantus at night. Patient has a history of Saturday, Saturday, Saturday dialysis and has been compliant on it. Has last HD 2 days ago and had a full session of dialysis Review of Systems: Review of Systems: All other systems within normal limits except for as noted in the HPI Current Medications: Current Medications Medications (Trade) Dose Ordered Sig/Ravinder Start Time Stop Time Status Last Admin Dose Admin Dextrose (Dextrose 50%-Water Syringe) 25 gm 1X ONCE 09/06/21 03:00 09/06/21 03:01 DC 09/06/21 02:26 25 GM Allergies: Allergies: Allergies Coded Allergies Type Severity Reaction Last Updated Verified morphine Allergy Intermediate Itching 06/29/20 Yes lisinopril Adverse Reaction Intermediate Dry Cough 04/17/21 Yes Physical Exam: PE: Constitutional: Well developed, well nourished, no acute distress, non-toxic appearance. [] HENT: Normocephalic, atraumatic, bilateral external ears normal, nose normal. [] Eyes: PERRLA, conjunctiva normal, no discharge. [] Neck: No rigidity, supple, no stridor. [] Cardiovascular: Regular rate and rhythm, brisk cap refill [] Lungs & Thorax: Non labored symmetric respirations, no tachypnea or respiratory distress [] Abdomen: Soft, nondistended. Skin: Warm, dry, no erythema, no rash. [] Back: Unremarkable Extremities: No deformities, range of motion grossly intact, no lower extremity edema [] Neurologic: Alert and oriented X 3, no focal deficits noted. [] Psychologic: Affect normal, judgement normal, mood normal. [] Current Patient Data: Labs: Laboratory Tests Test 09/06/21 01:58 09/06/21 02:30 09/06/21 02:42 09/06/21 02:49 Glucose (Fingerstick) 52 mg/dL (70-99) L 145 mg/dL (70-99) H White Blood Count 10.2 x10^3/uL (4.0-11.0) Red Blood Count 3.56 x10^6/uL (4.30-5.70) L Hemoglobin 9.6 g/dL (13.0-17.5) L Hematocrit 29.9 % (39.0-53.0) L Mean Corpuscular Volume 84 fL (79-100) Mean Corpuscular Hemoglobin 27 pg (25-35) Mean Corpuscular Hemoglobin Concent 32 g/dL (31-37) Red Cell Distribution Width 16.2 % (11.5-14.5) H Platelet Count 340 x10^3/uL (140-400) Neutrophils (%) (Auto) 76 % (31-73) H Lymphocytes (%) (Auto) 16 % (24-48) L Monocytes (%) (Auto) 7 % (0-9) Eosinophils (%) (Auto) 1 % (0-3) Basophils (%) (Auto) 1 % (0-3) Neutrophils # (Auto) 7.8 x10^3/uL (1.8-7.7) H Lymphocytes # (Auto) 1.6 x10^3/uL (1.0-4.8) Monocytes # (Auto) 0.7 x10^3/uL (0.0-1.1) Eosinophils # (Auto) 0.1 x10^3/uL (0.0-0.7) Basophils # (Auto) 0.1 x10^3/uL (0.0-0.2) Sodium Level 135 mmol/L (136-145) L Potassium Level 2.7 mmol/L (3.5-5.1) *L Chloride Level 98 mmol/L (98-107) Carbon Dioxide Level 25 mmol/L (21-32) Anion Gap 12 (6-14) Blood Urea Nitrogen 19 mg/dL (8-26) Creatinine 5.7 mg/dL (0.7-1.3) H Estimated GFR (Cockcroft-Gault) 12.6 BUN/Creatinine Ratio 3 (6-20) L Glucose Level 44 mg/dL (70-99) L Calcium Level 7.6 mg/dL (8.5-10.1) L Phosphorus Level 4.8 mg/dL (2.6-4.7) H Magnesium Level 1.5 mg/dL (1.8-2.4) L Total Bilirubin 0.3 mg/dL (0.2-1.0) Aspartate Amino Transferase (AST) 10 U/L (15-37) L Alanine Aminotransferase (ALT) 17 U/L (16-63) Alkaline Phosphatase 158 U/L (46-116) H Troponin I High Sensitivity 302 ng/L (4-75) H FX-Pdk-C-Type Natriuretic Peptide 5549 pg/mL (0-124) H Total Protein 6.6 g/dL (6.4-8.2) Albumin 2.6 g/dL (3.4-5.0) L Albumin/Globulin Ratio 0.7 (1.0-1.7) L Lipase 34 U/L (73-393) L Influenza Type A Antigen Negative (NEGATIVE) Influenza Type B Antigen Negative (NEGATIVE) SARS-CoV-2 Antigen (Rapid) Negative (NEGATIVE) Laboratory Tests 09/06/21 02:30 Laboratory Tests 09/06/21 02:30 Vital Signs: Vital Signs Date Time Temp Pulse Resp B/P (MAP) Pulse Ox O2 Delivery O2 Flow Rate FiO2 09/06/21 02:05 83 22 217/85 (129) 93 EKG: EKG: Sinus rhythm, heart rate 83 bpm, left axis deviation with LV strain Heart Score: C/O Chest Pain: Yes HEART Score for Chest Pain: HEART Score for Chest Pain Response (Comments) Value History Slighlty/Non-Suspicious 0 ECG Nonspecific Repolarizatio 1 Age >45 - < 65 1 Risk Factors >3 Risk Factors or Hx CAD 2 Troponin >3 x Normal Limit 2 Total 6 Risk Factors: Risk Factors: DM, Current or recent (<one month) smoker, HTN, HLP, family history of CAD, obesity. Risk Scores: Score 0 - 3: 2.5% MACE over next 6 weeks - Discharge Home Score 4 - 6: 20.3% MACE over next 6 weeks - Admit for Clinical Observation Score 7 - 10: 72.7% MACE over next 6 weeks - Early Invasive Strategies Radiology/Procedures: Radiology/Procedures: [facility] [address] [place] [address] IMAGING REPORT Signed PATIENT: ADAIR PINEDACOUNT: [id number] : 1965 LOCATION: ER AGE: 56 SEX: M EXAM STATUS: REG ER ORD. PHYSICIAN: NAWAF PANDEY MD REASON: vomiting PROCEDURE: ACUTE ABDOMEN SERIES XR ABDOMEN COMP ACUTE INDICATION: vomiting COMPARISON STUDY: 04/27/2021. FINDINGS: Lungs: Normal lung volume. Bilateral mild interstitial opacities, similar to prior exams. Pleura: No pleural effusion or pneumothorax. Heart and Mediastinum: Cardiomegaly. The great vessels of the thorax are normal. Abdomen: Nonobstructive bowel gas pattern. No free air. IMPRESSION: 1. Stable mild interstitial opacities, which could represent edema or infection in the acute setting or relate to previous infection. 2. Nonobstructive bowel gas pattern. Electronically signed by: Evelyne Cantrell MD (09/06/2021 3:25 AM) [facility] DICTATED and SIGNED BY: EVELYNE CANTRELL MD DATE: 09/06/21 [id number] [] Course & Med Decision Making: Course & Med Decision Making Pertinent Labs and Imaging studies reviewed. (See chart for details) [] Dragon Disclaimer: Dragon Disclaimer: This electronic medical record was generated, in whole or in part, using a voice recognition dictation system. Departure Departure Impression: Primary Impression: Chest pain Additional Impressions: Hypoglycemia Hypokalemia Disposition: ADMITTED INPATIENT Admitting Physician: Trina Valadez Condition: STABLE Referrals: TRINA VALADEZ MD (PCP) Problem Qualifiers NAWAF PANDEY MD Sep 06, 2021 02:12
[2021-09-06] MEDS ORDERED: IV DEXTROSE 5% 1,000 ML IV ONE (02:30)
[2021-09-06 02:38] LABS: BASO # 0.1 x10^3/uL (0.0-0.2); BASO % 1 % (0-3); EOS # 0.1 x10^3/uL (0.0-0.7); EOS % 1 % (0-3); HEMATOCRIT 29.9 % (39.0-53.0); HEMOGLOBIN 9.6 g/dL (13.0-17.5); LYMPH # 1.6 x10^3/uL (1.0-4.8); LYMPH % 16 % (24-48); MEAN CORPUSCULAR HEMOGLOBIN 27 pg (25-35); MEAN CORPUSCULAR HGB CONC 32 g/dL (31-37); MEAN CORPUSCULAR VOLUME 84 fL (79-100); MONO # 0.7 x10^3/uL (0.0-1.1); MONO % 7 % (0-9); NEUT # 7.8 x10^3/uL (1.8-7.7); NEUT % 76 % (31-73); PLATELET COUNT 340 x10^3/uL (140-400); RED BLOOD COUNT 3.56 x10^6/uL (4.30-5.70); RED CELL DISTRIBUTION WIDTH 16.2 % (11.5-14.5); WHITE BLOOD COUNT 10.2 x10^3/uL (4.0-11.0)
[2021-09-06 02:53] LABS: ALBUMIN 2.6 g/dL (3.4-5.0); ALBUMIN/GLOBULIN RATIO 0.7 (1.0-1.7); CALCIUM 7.6 mg/dL (8.5-10.1); CREATININE 5.7 mg/dL (0.7-1.3); GFR 12.6; MAGNESIUM 1.5 mg/dL (1.8-2.4); PHOSPHORUS 4.8 mg/dL (2.6-4.7); TOTAL BILIRUBIN 0.3 mg/dL (0.2-1.0); TOTAL PROTEIN 6.6 g/dL (6.4-8.2)
[2021-09-06 02:56] LABS: POTASSIUM 2.7 mmol/L (3.5-5.1)
[2021-09-06] MEDS ORDERED: DEXTROSE 50% 25 GM / 50ML DISP.SYRIN. IV ONE (03:00)
[2021-09-06 03:03] LABS: INFLUENZA A PATIENT NEGATIVE (NEGATIVE); INFLUENZA B PATIENT NEGATIVE (NEGATIVE)
--- NOTE | 2021-09-06 03:27 | RAD ---
XR ABDOMEN COMP ACUTE INDICATION: vomiting COMPARISON STUDY: 04/27/2021. FINDINGS: Lungs: Normal lung volume. Bilateral mild interstitial opacities, similar to prior exams. Pleura: No pleural effusion or pneumothorax. Heart and Mediastinum: Cardiomegaly. The great vessels of the thorax are normal. Abdomen: Nonobstructive bowel gas pattern. No free air. IMPRESSION: 1. Stable mild interstitial opacities, which could represent edema or infection in the acute setting or relate to previous infection. 2. Nonobstructive bowel gas pattern. Electronically signed by: Nathaniel Cantrell MD (09/06/2021 3:25 AM) [facility]
[2021-09-06] MEDS ORDERED: POTASSIUM BICARB 20 MEQ EFFERVESCENT TABLET. PO ONE (03:30)
[2021-09-06] MEDS ORDERED: ONDANSETRON PF 4 MG/2 ML VIAL. IVP ONE (03:30)
[2021-09-06] MEDS ORDERED: fentaNYL PF VIAL 100 MCG/2 ML VIAL IVP PRN (03:45)
[2021-09-06] MEDS ORDERED: ACETAMINOPHEN 325 MG TABLET. PO PRN ×2 (03:45→08:45)
[2021-09-06] MEDS ORDERED: ONDANSETRON PF 4 MG/2 ML VIAL. IVP PRN ×2 (03:45→08:45)
--- NOTE | 2021-09-06 03:46 | EKG ---
[facility] [address] [place] [address] Test Date: 2021-09-06 Test Time: 01:52:22 Pat Name: ADAIR PINEDA Department: Room: Gender: M Ginger Farmer: : 1965 Requested By: NAWAF PANDEY Order Number: [id number] Reading MD: Ted Dickey Measurements Intervals [place] Rate: 83 P: 180 AL: 150 QRS: -4 QRSD: 100 T: 119 QT: 398 QTc: 468 Interpretive Statements SINUS RHYTHM LEFTWARD AXIS QRS(T) CONTOUR ABNORMALITY CONSIDER ANTEROSEPTAL MYOCARDIAL DAMAGE LEFT VENTRICULAR HYPERTROPHY Electronically Signed On 09-06-2021 19:56:55 DIRECTOR CARD by Ted Dickey
[2021-09-06] MEDS ORDERED: ONDANSETRON ODT 4 MG TAB.RAPDIS. PO ONE (04:00)
[2021-09-06 07:00] VITALS: BP 211/77
[2021-09-06] MEDS ORDERED: OMEP40CA7 PO (07:26)
[2021-09-06] MEDS ORDERED: INSU100I13 SQ (07:28)
[2021-09-06] MEDS ORDERED: OMEG1CAP50 PO (07:29)
[2021-09-06] MEDS ORDERED: FERR325T14 PO (07:29)
[2021-09-06] MEDS ORDERED: METHOCARBAMOL 750 MG TABLET PO PRN (08:45)
[2021-09-06] MEDS ORDERED: BACLOFEN 10 MG TABLET. PO PRN (08:45)
[2021-09-06] MEDS: PANTOPRAZOLE 40 MG TABLET.DR. PO SCH (09:11)
[2021-09-06] MEDS: DOXAZOSIN MESYLATE 4 MG TABLET. PO SCH (09:12)
[2021-09-06] MEDS: ASPIRIN ENTERIC COATED 81 MG TABLET.DR. PO SCH (09:12)
--- NOTE | 2021-09-06 09:13 | PDOC ---
Provider Note Date of Service: DATE: 09/06/21 TIME: 09:13 Provider Note H&P dictated #[id number] Justifications for Admission Other Justification TRINA ALDANA MD Sep 06, 2021 09:13
[2021-09-06] MEDS ORDERED: ONDANSETRON ODT 4 MG TAB.RAPDIS. PO PRN (09:15)
[2021-09-06] MEDS: HEPARIN for SUB-Q USE 5,000 UNIT/ML VIAL. SQ SCH ×3 (10:00→21:35)
[2021-09-06] MEDS: CARVEDILOL 12.5 MG TABLET. PO SCH ×2 (10:00→17:03)
[2021-09-06] MEDS ORDERED: DIALYSIS PATIENT. MC PRN ×2 (10:15)
[2021-09-06] MEDS ORDERED: IV NORMAL SALINE 1000ML BAG 1,000 ML IV PRN ×2 (10:15)
--- NOTE | 2021-09-06 10:38 | HP ---
DATE OF SERVICE: 09/06/2021 ADMIT DATE: 09/06/2021 HISTORY OF PRESENT ILLNESS: This is 56 years old male who has a history of diabetes mellitus, end-stage renal disease, on hemodialysis, COPD, on oxygen by nasal cannula 2 liters per minute for chronic respiratory failure, gastroesophageal reflux disease, diabetes mellitus with neuropathy and nephropathy and hypertension with recurrent hypertensive crisis, started having palpitations. His heart rate was racing. Previously, he has had nausea and vomiting and could not tolerate breakfast. He took his blood sugar and was noted to be 39. He also started having chest pains. Because of that, he came to the Emergency Room. In the emergency room, the patient was evaluated and was noted to have WBC count of 10.2, hemoglobin 9.6, potassium of 2.7, sodium 135, BUN 19, creatinine 5.7, calcium 7.6, phosphorus 4.8 and magnesium of 1.5, ALT 17, AST 10. Troponin 302. BNP 5549. Lipase 34. Acute abdominal series did not show any bowel obstruction. He was noted to have stable mild interstitial opacities, similar to previous exam. Previously, the patient had COVID-19 infection. Because of his hypokalemia, vomiting, chest pains and multiple other medical problems, the patient was admitted for further evaluation and management. The patient also is noted to have hypertensive crisis with a blood pressure of 217/85 in the emergency room. SYSTEMS REVIEW: At present time, the patient denies any nausea, vomiting. He denies any cold, cough, congestion, fever or dyspnea. His chest pains are better. He denies any palpitations at this time. He was dizzy when his heart was beating fast. Other systems reviewed and are negative. 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 PAST SURGICAL HISTORY: Includes lumbar diskectomy in 2008, cholecystectomy in 2008, treatment for pancreatic pseudocyst that was removed in 2001. He again had lumbar microsurgery in 09/2017, cardiac stent placement and removal of salivary gland. He was last admitted here in 06/2021 and had posterior cervical hemilaminectomy C5-C6 and C6-C7, cervical laminectomy C3-C4, C4-C5 and posterior instrumentation and fusion of C3-C4 and C4-C5. SOCIAL HISTORY: Smokes at least 1 pack per day for over 20 years, history of alcohol abuse, quit drinking alcohol more than 10 years ago. No history of drug abuse. ALLERGIES: No known any. MEDICATIONS: Reviewed or reconciled. FAMILY HISTORY: Positive for cancer, diabetes, hypertension, and heart disease. PHYSICAL EXAMINATION: VITAL SIGNS: Blood pressure was 217/85 mmHg on admission, pulse 83 per minute, respirations 22 per minute, temperature 98.2. GENERAL: The patient is a middle-aged male who is alert, oriented x 3, and appears to be chronically ill. EYES: Pupils reactive to light. Conjunctivae pale. Sclerae muddy. HENT: Unremarkable, partial exam. NECK: Supple. JVP normal. No thyromegaly. Trachea midline. LUNGS: Decreased breath sounds at bases. CARDIOVASCULAR: S1, S2, regular. ABDOMEN: Soft, nontender, no guarding, no rigidity. Bowel sounds present. EXTREMITIES: No edema, no cyanosis, no calf tenderness. CENTRAL NERVOUS SYSTEM: Alert and oriented. Generalized weakness, recent neck surgery. LABORATORY FINDINGS: As noted earlier. IMPRESSION: 1. Diabetes mellitus with severe hypoglycemia. 2. 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 3. Chest pain. Troponin elevated. This may be due to demand ischemia, hypertensive crisis and also contributed by end-stage renal disease. 4. Elevated BNP, likely due to hypertensive crisis and end-stage renal disease. 5. End-stage renal disease, on hemodialysis. 6. Chronic hypoxic respiratory failure, on oxygen by nasal cannula 2 liters per minute. 7. Chronic obstructive pulmonary disease. 8. Hypertensive crisis. 9. Gastroesophageal reflux disease. 10. Coronary artery disease with history of stent placement. 11. Mixed hyperlipidemia. 12. Chronic pancreatitis. 13. Anemia. 14. Physical deconditioning. 15. Osteoarthritis. 16. Chronic back pain. 17. Cervical spinal stenosis and cervical radiculopathy with several neck surgeries. PLAN: 1. Chest pain. Consult Dr. Rome for cardiology evaluation and management. Continue to monitor. Chest pain is improving. 2. Diabetes mellitus with hypoglycemia. I will hold Lantus insulin and just use a sliding scale insulin for now. Hopefully, he will be able to tolerate diet. Unable to put IV line, so we will continue without the IV line as long as he is stable. He will also have dialysis access. 3. End-stage renal disease, on hemodialysis. Consult Dr. Riddle for nephrology evaluation and management. Continue hemodialysis. 4. Hypertensive crisis. We will restart all his home medications and monitor closely. Discussed with staff that he was on Catapres previously. 5. Chronic hypoxic respiratory failure. Continue oxygen by nasal cannula 2 liters per minute. 6. Chronic obstructive pulmonary disease. Continue inhalers. For details, please refer to the orders. Prognosis of this patient is poor due to his multiple medical problems. IVONNE TURNER: David TID: [id number]
--- NOTE | 2021-09-06 10:51 | PDOC2 ---
CONSULT Date of Consult Date of Consult DATE: 09/06/21 TIME: 10:44 Reason for Consult Reason for Consult: ESRD Identification/Chief Complaint Chief Complaint feeling much better Source Source: Chart review, Patient History of Present Illness Reason for Visit: Patient is a 56 years old CM with history of diabetes mellitus, end-stage renal disease, , COPD, on oxygen by nasal cannula 2 liters diabetes mellitus , hypertension with recurrent hypertensive crisis,reports he started having palpitations. and felt his heart rate was racing. Prior to that he had nausea and vomiting and could not tolerate breakfast. He checked his BS and was 39. He also started having chest pains and decided to come to the ER. In the ER his BP was high systolic 200's, K low . He is on HD MWF, denies missing any treatments. Currentlt seen on dialysis. States feeling much better. No CP or SOB. No N/V since episode yesterday . Denies F/C or cough. No abdominal pain Past Medical History Cardiovascular: CAD, HTN, Hyperlipidemia Pulmonary: No pertinent hx GI: GERD, Other Heme/Onc: Anemia NOS, Cancer, Other Hepatobiliary: Other Psych: Anxiety, Other Rheumatologic: No pertinent hx Infectious disease: No pertinent hx Renal/: Chronic renal insuff Endocrine: Diabetes Past Surgical History Past Surgical History: Cholecystectomy, Tonsillectomy, Other Family History Family History: Coronary Artery Disease, Diabetes, Hypertension, Kidney Disease Social History ALCOHOL: other Lives: Alone Current Problem List Problem List Problems Medical Problems: (1) Hypoglycemia Status: Acute (2) Hypokalemia Status: Acute Current Medications Current Medications Current Medications Dextrose 1,000 ml @ 75 mls/hr 1X ONCE IV Last administered on 09/06/21at 02:30; Start 09/06/21 at 02:30; Stop 09/06/21 at 15:49 Dextrose (Dextrose 50%-Water Syringe) 25 gm 1X ONCE IV Last administered on 09/06/21at 02:26; Start 09/06/21 at 03:00; Stop 09/06/21 at 03:01; Status DC Ondansetron HCl (Zofran) 4 mg 1X ONCE IVP Last administered on 09/06/21at 03:12; Start 09/06/21 at 03:30; Stop 09/06/21 at 03:31; Status DC Potassium Bicarbonate (Potassium Effervescent Tablet) 40 meq 1X ONCE PO Last administered on 09/06/21at 03:15; Start 09/06/21 at 03:30; Stop 09/06/21 at 03:31; Status DC Ondansetron HCl (Zofran Odt) 4 mg 1X ONCE PO Last administered on 09/06/21at 03:30; Start 09/06/21 at 04:00; Stop 09/06/21 at 04:01; Status DC Ondansetron HCl (Zofran) 4 mg PRN Q8HRS PRN IVP NAUSEA/VOMITING 1st choice; Start 09/06/21 at 03:45; Stop 09/07/21 at 03:44 Fentanyl Citrate (Fentanyl 2ml Vial) 50 mcg PRN Q1HR PRN IVP SEVERE PAIN 7-10; Start 09/06/21 at 03:45; Stop 09/07/21 at 03:44 Acetaminophen (Tylenol) 650 mg PRN Q4HRS PRN PO FEVER > 100.3'F; Start 09/06/21 at 03:45; Stop 09/06/21 at 09:28; Status DC Aspirin (Ecotrin) 81 mg DAILY PO Last administered on 09/06/21at 09:12; Start 09/06/21 at 09:00 Baclofen (Lioresal) 5 mg PRN TID PRN PO MUSCLE SPASMS; Start 09/06/21 at 08:45 Doxazosin Mesylate (Cardura) 4 mg DAILY PO Last administered on 09/06/21at 09:12; Start 09/06/21 at 09:00 Amylase/Lipase/ Protease (Zenpep 10,000) 3 cap TIDWMEALS PO ; Start 09/06/21 at 12:00 Methocarbamol (Robaxin) 750 mg PRN TID PRN PO MUSCLE SPASMS; Start 09/06/21 at 08:45 Oxycodone/ Acetaminophen (Percocet 7.5/ 325) 1 tab PRN Q6HRS PRN PO PAIN; Start 09/06/21 at 08:45 Sevelamer Carbonate (Renvela) 800 mg TIDWMEALS PO ; Start 09/06/21 at 12:00 Trazodone HCl (Desyrel) 100 mg QHS PO ; Start 09/06/21 at 21:00 Hydralazine HCl (Apresoline) 100 mg TID PO Last administered on 09/06/21at 09:12; Start 09/06/21 at 09:00 Pantoprazole Sodium (Protonix) 40 mg DAILYAC PO Last administered on 09/06/21at 09:11; Start 09/06/21 at 09:00 Insulin Human Lispro (HumaLOG) 0-8 UNITS TIDBFRMEAL SQ ; Start 09/06/21 at 11:30 Acetaminophen (Tylenol) 650 mg PRN Q6HRS PRN PO MILD PAIN / TEMP > 100.3'F; Start 09/06/21 at 08:45 Ondansetron HCl (Zofran) 4 mg Q6HRS PRN IVP NAUSEA/VOMITING; Start 09/06/21 at 08:45 Ondansetron HCl (Zofran Odt) 4 mg PRN Q6HRS PRN PO NAUSEA/VOMITING; Start 09/06/21 at 09:15 Clonidine HCl (Catapres Tts-1) 1 patch WEEKLY TD ; Start 09/13/21 at 09:00 Amlodipine Besylate (Norvasc) 10 mg DAILY PO ; Start 09/06/21 at 10:00 Isosorbide Mononitrate (Imdur) 30 mg DAILY PO ; Start 09/06/21 at 10:00 Carvedilol (Coreg) 25 mg BIDWMEALS PO ; Start 09/06/21 at 10:00 Heparin Sodium (Porcine) (Heparin Sodium) 5,000 unit Q12HR SQ ; Start 09/06/21 at 10:00 Sodium Chloride 1,000 ml @ 1,000 mls/hr Q1H PRN IV hypotension; Start 09/06/21 at 10:15; Stop 09/06/21 at 16:14 Sodium Chloride 1,000 ml @ 400 mls/hr Q2H30M PRN IV PATENCY; Start 09/06/21 at 10:15; Stop 09/06/21 at 22:14 Info (PHARMACY MONITORING -- do not chart) 1 each PRN DAILY PRN MC SEE COMMENTS; Start 09/06/21 at 10:15 Info (PHARMACY MONITORING -- do not chart) 1 each PRN DAILY PRN MC SEE COMMENTS; Start 09/06/21 at 10:15 Active Scripts Active Percocet 7.5-325 Mg Tablet (Oxycodone/Acetaminophen) 1 Each Tablet 1 Tab PO PRN Q6HRS PRN Methocarbamol 750 Mg Tablet 750 Mg PO PRN TID PRN 10 Days Baclofen 10 Mg Tablet 5 Mg PO TID PRN Renvela (Sevelamer Carbonate) 800 Mg Tablet 800 Mg PO TIDWMEALS 30 Days Reported Fish Oil 1,000 Mg Softgel ([place]-3 Fatty Acids/Fish Oil) 1 Each Capsule 1 Cap PO DAILY 30 Days Ferrous Sulfate 325 Mg Tablet 1 Tab PO DAILY Lantus Solostar (Insulin Glargine,Hum.rec.anlog) 100 Unit/1 Ml Insuln.pen 34 Unit SQ DAILY Omeprazole 40 Mg Capsule.dr 1 Cap PO DAILY Zenpep Dr 10,000 Units Capsule (Lipase/Protease/Amylase) 1 Each Capsule.dr 3 Cap PO TIDWMEALS Doxazosin Mesylate 4 Mg Tablet 1 Tab PO DAILY Trazodone Hcl 100 Mg Tablet 1 Tab PO QHS Hydralazine Hcl 100 Mg Tablet 1 Tab PO TID Aspir 81 (Aspirin) 81 Mg Tablet.dr 1 Tab PO DAILY Allergies Allergies: Coded Allergies: morphine (Verified Allergy, Intermediate, Itching, 06/29/20) lisinopril (Verified Adverse Reaction, Intermediate, Dry Cough, 04/17/21) Dry Cough ROS Review of System As per HPI, rest of the ROS is negative Physical Exam Physical Exam GENERAL: NAD HEENT: Normocephalic, atraumatic. Anicteric.On chronic o2 by NC NECK: Supple LUNGS: Clear bilaterally. decraesed at bases HEART: S1, S2. ABDOMEN: Soft, nontender, nondistended, no rebound or guarding. EXTREMITIES: No edema, no cyanosis. DERMATOLOGIC: Warm, dry, no generalized rash. NEUROLOGIC: Alert and oriented x 3, grossly no focal deficit PSYCHIATRIC: Calm and cooperative. No ruth, No CVA or SP tenderness Vital Signs Vital Signs Date Time Temp Pulse Resp B/P (MAP) Pulse Ox O2 Delivery O2 Flow Rate FiO2 09/06/21 09:12 83 211/77 09/06/21 08:30 Nasal Cannula 3.0 09/06/21 07:00 98.2 20 94 98.2 Assessment & Plan ESRD on HD MWF, on HD since 2019 ,seen during dialysis, tolerating well . Continue as ordered. Smooth PIRES Undergoing Renal Tx eval at [facility] HypoKalemia - Replace Chest Pain/Palpitataion POA- cardiology consulted Accelerated hypertension Antihypertensives, Renal Doppler in Aug 2019, No e/o JOSELYN . On multiple meds including . Card manages Anemia - MOnitor Diabetes mellitus type 2. History of prostate cancer.s/p Radiation treatment Hx of HypoNatremia- with Na down to 118 Apr 2021 . After I dced Mirtazipine Na improved . Currently Mildy low Hx of COVID 19 Pneumonia HX of CAD and MD Labs Labs Laboratory Tests Test 09/06/21 01:58 09/06/21 02:30 09/06/21 02:42 09/06/21 02:49 Glucose (Fingerstick) 52 mg/dL (70-99) 145 mg/dL (70-99) White Blood Count 10.2 x10^3/uL (4.0-11.0) Red Blood Count 3.56 x10^6/uL (4.30-5.70) Hemoglobin 9.6 g/dL (13.0-17.5) Hematocrit 29.9 % (39.0-53.0) Mean Corpuscular Volume 84 fL (79-100) Mean Corpuscular Hemoglobin 27 pg (25-35) Mean Corpuscular Hemoglobin Concent 32 g/dL (31-37) Red Cell Distribution Width 16.2 % (11.5-14.5) Platelet Count 340 x10^3/uL (140-400) Neutrophils (%) (Auto) 76 % (31-73) Lymphocytes (%) (Auto) 16 % (24-48) Monocytes (%) (Auto) 7 % (0-9) Eosinophils (%) (Auto) 1 % (0-3) Basophils (%) (Auto) 1 % (0-3) Neutrophils # (Auto) 7.8 x10^3/uL (1.8-7.7) Lymphocytes # (Auto) 1.6 x10^3/uL (1.0-4.8) Monocytes # (Auto) 0.7 x10^3/uL (0.0-1.1) Eosinophils # (Auto) 0.1 x10^3/uL (0.0-0.7) Basophils # (Auto) 0.1 x10^3/uL (0.0-0.2) Sodium Level 135 mmol/L (136-145) Potassium Level 2.7 mmol/L (3.5-5.1) Chloride Level 98 mmol/L (98-107) Carbon Dioxide Level 25 mmol/L (21-32) Anion Gap 12 (6-14) Blood Urea Nitrogen 19 mg/dL (8-26) Creatinine 5.7 mg/dL (0.7-1.3) Estimated GFR (Cockcroft-Gault) 12.6 BUN/Creatinine Ratio 3 (6-20) Glucose Level 44 mg/dL (70-99) Calcium Level 7.6 mg/dL (8.5-10.1) Phosphorus Level 4.8 mg/dL (2.6-4.7) Magnesium Level 1.5 mg/dL (1.8-2.4) Total Bilirubin 0.3 mg/dL (0.2-1.0) Aspartate Amino Transf (AST/SGOT) 10 U/L (15-37) Alanine Aminotransferase (ALT/SGPT) 17 U/L (16-63) Alkaline Phosphatase 158 U/L (46-116) Troponin I High Sensitivity 302 ng/L (4-75) LQ-Bbn-Q-Type Natriuretic Peptide 5549 pg/mL (0-124) Total Protein 6.6 g/dL (6.4-8.2) Albumin 2.6 g/dL (3.4-5.0) Albumin/Globulin Ratio 0.7 (1.0-1.7) Lipase 34 U/L (73-393) Influenza Type A Antigen Negative (NEGATIVE) Influenza Type B Antigen Negative (NEGATIVE) SARS-CoV-2 Antigen (Rapid) Negative (NEGATIVE) Test 09/06/21 07:23 Glucose (Fingerstick) 124 mg/dL (70-99) Laboratory Tests Test 09/06/21 01:58 09/06/21 02:30 09/06/21 02:42 09/06/21 02:49 Glucose (Fingerstick) 52 mg/dL (70-99) 145 mg/dL (70-99) White Blood Count 10.2 x10^3/uL (4.0-11.0) Red Blood Count 3.56 x10^6/uL (4.30-5.70) Hemoglobin 9.6 g/dL (13.0-17.5) Hematocrit 29.9 % (39.0-53.0) Mean Corpuscular Volume 84 fL (79-100) Mean Corpuscular Hemoglobin 27 pg (25-35) Mean Corpuscular Hemoglobin Concent 32 g/dL (31-37) Red Cell Distribution Width 16.2 % (11.5-14.5) Platelet Count 340 x10^3/uL (140-400) Neutrophils (%) (Auto) 76 % (31-73) Lymphocytes (%) (Auto) 16 % (24-48) Monocytes (%) (Auto) 7 % (0-9) Eosinophils (%) (Auto) 1 % (0-3) Basophils (%) (Auto) 1 % (0-3) Neutrophils # (Auto) 7.8 x10^3/uL (1.8-7.7) Lymphocytes # (Auto) 1.6 x10^3/uL (1.0-4.8) Monocytes # (Auto) 0.7 x10^3/uL (0.0-1.1) Eosinophils # (Auto) 0.1 x10^3/uL (0.0-0.7) Basophils # (Auto) 0.1 x10^3/uL (0.0-0.2) Sodium Level 135 mmol/L (136-145) Potassium Level 2.7 mmol/L (3.5-5.1) Chloride Level 98 mmol/L (98-107) Carbon Dioxide Level 25 mmol/L (21-32) Anion Gap 12 (6-14) Blood Urea Nitrogen 19 mg/dL (8-26) Creatinine 5.7 mg/dL (0.7-1.3) Estimated GFR (Cockcroft-Gault) 12.6 BUN/Creatinine Ratio 3 (6-20) Glucose Level 44 mg/dL (70-99) Calcium Level 7.6 mg/dL (8.5-10.1) Phosphorus Level 4.8 mg/dL (2.6-4.7) Magnesium Level 1.5 mg/dL (1.8-2.4) Total Bilirubin 0.3 mg/dL (0.2-1.0) Aspartate Amino Transf (AST/SGOT) 10 U/L (15-37) Alanine Aminotransferase (ALT/SGPT) 17 U/L (16-63) Alkaline Phosphatase 158 U/L (46-116) Troponin I High Sensitivity 302 ng/L (4-75) CG-Avi-I-Type Natriuretic Peptide 5549 pg/mL (0-124) Total Protein 6.6 g/dL (6.4-8.2) Albumin 2.6 g/dL (3.4-5.0) Albumin/Globulin Ratio 0.7 (1.0-1.7) Lipase 34 U/L (73-393) Influenza Type A Antigen Negative (NEGATIVE) Influenza Type B Antigen Negative (NEGATIVE) SARS-CoV-2 Antigen (Rapid) Negative (NEGATIVE) Test 09/06/21 07:23 Glucose (Fingerstick) 124 mg/dL (70-99) Review All relevant outside records, renal labs, imaging studies, telemetry/EKG's were reviewed. CARLO CHAUHAN MD Sep 06, 2021 10:51
[2021-09-06] MEDS: INSULIN LISPRO 300 UNITS/3 ML VIAL. SQ SCH ×2 (11:19→17:02)
--- NOTE | 2021-09-06 11:31 | PDOC2 ---
PRESTON CALABRESE LEAD SHAREPOINT DEVELOPER 09/06/21 1131: CARDIAC CONSULT DATE OF CONSULT Date of Consult DATE: 09/06/21 TIME: 11:10 REASON FOR CONSULT Reason for Consult: Chest pain REFERRING PHYSICIAN Referring Physician: Dr. Berg SOURCE Source: Chart review, Patient HISTORY OF PRESENT ILLNESS HISTORY OF PRESENT ILLNESS This is a 56 yo male who presented secondary to hypoglycemia and chest pain. Patient reports he was sitting watching television and began feeling pressure in his central chest. Reports feeling like his heart was beating hard and fast. He checked his blood sugar and was noted at 39. Reports he ate some candy to bring his sugar up. Reports he did not feel right so he came into the ED for further evaluation and treatment. EKG showed SR upon arrival. Denies any dizziness, nausea, or shortness of breath. He does have a history of STEMI, CAD s/p PCI/stent placement. He reports pain to be very different from what he experienced with NC. Is feeling well now and has had no further palpitations or chest pressures. PAST MEDICAL HISTORY Past Medical History Cardiovascular: CAD, HTN, Hyperlipidemia Pulmonary: COPD, Covid-19 PNA GI: GERD, Other Heme/Onc: Anemia NOS, Cancer, Other Hepatobiliary: Other Psych: Anxiety, Other Rheumatologic: No pertinent hx Infectious disease: No pertinent hx Renal/: Chronic renal insuff Endocrine: Diabetes PAST SURGICAL HISTORY Past Surgical History Cholecystectomy, Tonsillectomy, Other (Coronary stenting) FAMILY HISTORY Family History Coronary Artery Disease, Diabetes, Hypertension, Kidney Disease SOCIAL HISTORY Social History SMOKE: <quit ALCOHOL: none Drugs: None Lives: Alone CURRENT MEDICATIONS CURRENT MEDICATIONS Current Medications Medications (Trade) Dose Ordered Sig/Ravinder Route PRN Reason Start Time Stop Time Status Last Admin Dose Admin Dextrose 1,000 ml @ 75 mls/hr 1X ONCE IV 09/06/21 02:30 09/06/21 15:49 09/06/21 02:30 Dextrose (Dextrose 50%-Water Syringe) 25 gm 1X ONCE IV 09/06/21 03:00 09/06/21 03:01 DC 09/06/21 02:26 Ondansetron HCl (Zofran) 4 mg 1X ONCE IVP 09/06/21 03:30 09/06/21 03:31 DC 09/06/21 03:12 Potassium Bicarbonate (Potassium Effervescent Tablet) 40 meq 1X ONCE PO 2/16/22 03:30 09/06/21 03:31 DC 09/06/21 03:15 Ondansetron HCl (Zofran Odt) 4 mg 1X ONCE PO 09/06/21 04:00 09/06/21 04:01 DC 09/06/21 03:30 Aspirin (Ecotrin) 81 mg DAILY PO 09/06/21 09:00 09/06/21 09:12 Doxazosin Mesylate (Cardura) 4 mg DAILY PO 09/06/21 09:00 09/06/21 09:12 Hydralazine HCl (Apresoline) 100 mg TID PO 09/06/21 09:00 09/06/21 09:12 Pantoprazole Sodium (Protonix) 40 mg DAILYAC PO 09/06/21 09:00 09/06/21 09:11 ALLERGIES ALLERGIES: Coded Allergies: morphine (Verified Allergy, Intermediate, Itching, 06/29/20) lisinopril (Verified Adverse Reaction, Intermediate, Dry Cough, 04/17/21) Dry Cough ROS Review of System 14 point ROS conducted with pertinent positives noted above in HPI PHYSICAL EXAM PHYSICAL EXAM General: Alert, Oriented X3, Cooperative, No acute distress HEENT: Atraumatic, Mucous membr. moist/pink Lungs: Other (diminished bases) Heart: Regular rate (SR/ST), Normal S1, Normal S2, No murmurs Abdomen: Soft, No tenderness Extremities: No cyanosis, No edema Skin: No breakdown, No significant lesion Neuro: Normal speech, Sensation intact Psych/Mental Status: Mental status NL, Mood NL MUSCULOSKELETAL: Osteoarthritic changes both hands VITALS/I&O VITALS/I&O: Vital Signs Date Time Temp Pulse Resp B/P (MAP) Pulse Ox O2 Delivery O2 Flow Rate FiO2 09/06/21 09:12 83 211/77 09/06/21 08:30 Nasal Cannula 3.0 09/06/21 07:00 98.2 20 94 98.2 I & O 09/05/21 09/05/21 09/06/21 15:00 23:00 07:00 Intake Total 0 ml Balance 0 ml LABS Lab: Laboratory Tests Test 09/06/21 01:58 09/06/21 02:30 09/06/21 02:42 09/06/21 02:49 Glucose (Fingerstick) 52 mg/dL (70-99) L 145 mg/dL (70-99) H White Blood Count 10.2 x10^3/uL (4.0-11.0) Red Blood Count 3.56 x10^6/uL (4.30-5.70) L Hemoglobin 9.6 g/dL (13.0-17.5) L Hematocrit 29.9 % (39.0-53.0) L Mean Corpuscular Volume 84 fL (79-100) Mean Corpuscular Hemoglobin 27 pg (25-35) Mean Corpuscular Hemoglobin Concent 32 g/dL (31-37) Red Cell Distribution Width 16.2 % (11.5-14.5) H Platelet Count 340 x10^3/uL (140-400) Neutrophils (%) (Auto) 76 % (31-73) H Lymphocytes (%) (Auto) 16 % (24-48) L Monocytes (%) (Auto) 7 % (0-9) Eosinophils (%) (Auto) 1 % (0-3) Basophils (%) (Auto) 1 % (0-3) Neutrophils # (Auto) 7.8 x10^3/uL (1.8-7.7) H Lymphocytes # (Auto) 1.6 x10^3/uL (1.0-4.8) Monocytes # (Auto) 0.7 x10^3/uL (0.0-1.1) Eosinophils # (Auto) 0.1 x10^3/uL (0.0-0.7) Basophils # (Auto) 0.1 x10^3/uL (0.0-0.2) Sodium Level 135 mmol/L (136-145) L Potassium Level 2.7 mmol/L (3.5-5.1) *L Chloride Level 98 mmol/L (98-107) Carbon Dioxide Level 25 mmol/L (21-32) Anion Gap 12 (6-14) Blood Urea Nitrogen 19 mg/dL (8-26) Creatinine 5.7 mg/dL (0.7-1.3) H Estimated GFR (Cockcroft-Gault) 12.6 BUN/Creatinine Ratio 3 (6-20) L Glucose Level 44 mg/dL (70-99) L Calcium Level 7.6 mg/dL (8.5-10.1) L Phosphorus Level 4.8 mg/dL (2.6-4.7) H Magnesium Level 1.5 mg/dL (1.8-2.4) L Total Bilirubin 0.3 mg/dL (0.2-1.0) Aspartate Amino Transferase (AST) 10 U/L (15-37) L Alanine Aminotransferase (ALT) 17 U/L (16-63) Alkaline Phosphatase 158 U/L (46-116) H Troponin I High Sensitivity 302 ng/L (4-75) H IQ-Ozk-C-Type Natriuretic Peptide 5549 pg/mL (0-124) H Total Protein 6.6 g/dL (6.4-8.2) Albumin 2.6 g/dL (3.4-5.0) L Albumin/Globulin Ratio 0.7 (1.0-1.7) L Lipase 34 U/L (73-393) L Hepatitis B Surface Antigen Nonreactive (Nonreactive) Influenza Type A Antigen Negative (NEGATIVE) Influenza Type B Antigen Negative (NEGATIVE) SARS-CoV-2 Antigen (Rapid) Negative (NEGATIVE) Test 09/06/21 07:23 Glucose (Fingerstick) 124 mg/dL (70-99) H Laboratory Tests 09/06/21 02:30 Laboratory Tests 09/06/21 02:30 ECHOCARDIOGRAM ECHOCARDIOGRAM <Conclusion> The left ventricular systolic function is normal and the ejection fraction is within normal range. The Ejection Fraction is 55-60%. There is normal LV segmental wall motion. DATE: 09/11/19 1033 Limited Echo <Conclusion> The left ventricular systolic function is normal and the ejection fraction is within normal range. The Ejection Fraction is 65-70%. There is normal LV segmental wall motion. There is a small pericardial effusion. DATE: 04/27/21 [id number] 0 STRESS TEST STRESS TEST 12/01/20 - Procedure: [facility] G[facility] MPI STRESS TEST SUMMARY/OPINION: The study is probably normal. Global left ventricular ejection fraction is borderline and should be confirmed using other imaging techniques. Qualitatively global ejection fraction is normal. There are no definite perfusion abnormalities. High risk indicators are not noted. In aggregate the current study is low risk in regards to predicted annual cardiovascular mortality rate. HEART CATH HEART CATH CARDIAC CATHETERIZATION REPORT DATE: 01/12/2021 FINDINGS ON SELECTIVE CORONARY ANGIOGRAPHY: Left main: There is practically no left main coronary artery, it is a dual- ostial system, though they arise very close to each other, and possibly somewhat share a common ostium. Left anterior descending artery: The LAD is a large vessel that does reach the apex and wraps around it. The LAD has moderate disease in its zvxvcmuw-dw-ovc portion with gtbh-og-hsujpxlk calcification. The worst area is about 30%. A large diagonal branch has no significant stenosis. Left circumflex artery: A medium-size vessel without significant stenosis. A high obtuse marginal is normal. A medium-size second obtuse marginal is jailed by a mid circumflex artery stent. The obtuse marginal has an ostial 60% stenosis, unchanged from 2015, at the time of the procedure. The stent in the circumflex artery is widely patent, and the circumflex artery culminates in a large obtuse marginal that is widely patent. Right coronary artery: The RCA is a large dominant vessel. It has no significant stenosis and gives rise to a large PLV and a large PDA, which also have no significant stenosis. FINAL IMPRESSION: Stable angiographic coronary artery findings from 6 years ago, with patent stent to the circumflex artery, patent RCA, and nzws-ga-wssqigis disease of no more than 30% in the jgjhudqo-fa-vdh LAD. Normal right-sided filling pressures. Elevated pulmonary capillary wedge pressure of 22. Increased pulmonary artery pressure with a mean of 29 mmHg, mostly secondary to increased pulmonary capillary wedge pressure. Normal cardiac index, which by thermodilution are 4 L/min per square meter. RECOMMENDATIONS: Medical management is recommended for coronary artery disease with strong advice to quit smoking. I would recommend certainly more aggressive hemodialysis to get rid of some extra fluid as the wedge pressure is elevated. The patient is cleared for his renal transplant from a cardiac standpoint. ASSESSMENT/PLAN ASSESSMENT/PLAN 1. Chest pain, pressure, palpitations. No tachyarrhythmias noted on tele 2. CAD s/p PCI/stent to the LCx; [facility] 01/09 showed patent LCx stent and no lesions needing intervention as noted above. Follows with Dr. Jahaira FOSTER 3. HTN urgency: improved, but remains mildly elevated 4. Elevated troponin; initial high sensitivity trop 302. Most probably type II, demand ischemia 5. Chronic diastolic CHF; appears compensated. recent echo with preserved LV systolic function 6. Hyperlipidemia 7. ESRD on HD 8. Diabetes, II with hypoglycemia 9. Hypokalemia, hypomagnesemia 10. Anemia Recommendations Trend troponin Resume secondary prevention measures BP control; resume home therapy and titrate as warranted Hydralazine IV PRN Fluid offloading via HD Consider outpatient event monitor and ischemic evaluation PETRA TELLEZ MD 09/07/21 0934: CARDIAC CONSULT ASSESSMENT/PLAN ASSESSMENT/PLAN Late entry for 09/06/21 Pt. seen and examined. Agree with above LOAD DISPATCHER note. Supportive care. PRESTON CALABRESE APRN Sep 06, 2021 11:31 PETRA TELLEZ MD Sep 07, 2021 09:34
[2021-09-06] MEDS: LIPASE/PROTEAS/AMYLAS 10/32/42 CAPSULE.DR. PO SCH ×2 (11:47→17:02)
[2021-09-06] MEDS: SEVELAMER CARBONATE 800 MG TABLET. PO SCH ×2 (11:47→17:02)
[2021-09-06 11:56] LABS: CHOLESTEROL/HDL RATIO 1.5
[2021-09-06 14:03] VITALS: BP 154/65
[2021-09-06] MEDS: ISOSORBIDE MONONITRATE ER 30 MG TAB.ER.24H PO SCH (14:05)
--- NOTE | 2021-09-06 14:07 | NUR ---
SW following. Discussed with RN, pt from home, 3L (does not use oxygen at home), renal diet, Rapid COVID-19 negative. Pt does dialysis MWF at [facility]. Nephrology and cardiology following. Pt declined SNF and home health last admission. Possible discharge home tomorrow per RN. SW will continue to follow.
[2021-09-06 15:00] VITALS: BP 160/68
[2021-09-06] MEDS: oxyCODONE/APAP 7.5/325 1 TAB TABLET PO PRN (15:25)
[2021-09-06] MEDS ORDERED: MAGNESIUM SULFATE 2GM 50 ML IV ONE (16:00)
--- NOTE | 2021-09-06 16:08 | NUR ---
IV magnesium nonadministered by this RN. Pt has no IV access, orders "okay to leave IV out." This RN paged Cori Hicks, PLATE PUT IN WORKER. Awaiting call back.
[2021-09-06 19:00] VITALS: BP 127/47
[2021-09-06] MEDS ORDERED: ATORVASTATIN CALCIUM 40 MG TABLET. PO SCH (21:00)
[2021-09-06] MEDS ORDERED: traZODone 100 MG TABLET. PO SCH (21:00)
[2021-09-06 22:38] VITALS: BP 130/49
[2021-09-07] MEDS: oxyCODONE/APAP 7.5/325 1 TAB TABLET PO PRN (02:17)
[2021-09-07 02:40] VITALS: BP 172/72
[2021-09-07 06:14] LABS: BASO # 0.1 x10^3/uL (0.0-0.2); BASO % 1 % (0-3); EOS # 0.2 x10^3/uL (0.0-0.7); EOS % 2 % (0-3); HEMATOCRIT 28.1 % (39.0-53.0); HEMOGLOBIN 9.1 g/dL (13.0-17.5); LYMPH # 1.9 x10^3/uL (1.0-4.8); LYMPH % 20 % (24-48); MEAN CORPUSCULAR HEMOGLOBIN 27 pg (25-35); MEAN CORPUSCULAR HGB CONC 33 g/dL (31-37); MEAN CORPUSCULAR VOLUME 85 fL (79-100); MONO # 0.5 x10^3/uL (0.0-1.1); MONO % 6 % (0-9); NEUT # 6.6 x10^3/uL (1.8-7.7); NEUT % 72 % (31-73); PLATELET COUNT 347 x10^3/uL (140-400); RED BLOOD COUNT 3.32 x10^6/uL (4.30-5.70); RED CELL DISTRIBUTION WIDTH 16.6 % (11.5-14.5); WHITE BLOOD COUNT 9.3 x10^3/uL (4.0-11.0)
[2021-09-07 06:16] LABS: ALBUMIN 2.5 g/dL (3.4-5.0); ALBUMIN/GLOBULIN RATIO 0.7 (1.0-1.7); CALCIUM 7.5 mg/dL (8.5-10.1); CREATININE 4.4 mg/dL (0.7-1.3); POTASSIUM 4.6 mmol/L (3.5-5.1); TOTAL BILIRUBIN 0.2 mg/dL (0.2-1.0); TOTAL PROTEIN 6.3 g/dL (6.4-8.2)
[2021-09-07 07:00] VITALS: BP 184/77
[2021-09-07] MEDS: CARVEDILOL 12.5 MG TABLET. PO SCH (07:56)
[2021-09-07] MEDS: LIPASE/PROTEAS/AMYLAS 10/32/42 CAPSULE.DR. PO SCH ×2 (07:57→10:56)
[2021-09-07] MEDS: SEVELAMER CARBONATE 800 MG TABLET. PO SCH ×2 (07:57→10:56)
[2021-09-07] MEDS: PANTOPRAZOLE 40 MG TABLET.DR. PO SCH (07:57)
[2021-09-07] MEDS ORDERED: INSU100I13 SQ (08:00)
[2021-09-07] MEDS ORDERED: INSU100V35 SQ (08:00)
[2021-09-07] MEDS ORDERED: ATOR40TA59 PO (08:00)
[2021-09-07] MEDS ORDERED: CARV25TA2 PO (08:00)
[2021-09-07] MEDS ORDERED: AMLO-187 PO (08:00)
[2021-09-07] MEDS ORDERED: CLON0.1T PO (08:02)
[2021-09-07] MEDS: INSULIN LISPRO 300 UNITS/3 ML VIAL. SQ SCH ×2 (08:04→10:57)
--- NOTE | 2021-09-07 08:05 | DISCH ---
DISCHARGE INSTRUCTIONS Condition on Discharge Condition on Discharge: Stable Activity After Discharge Activity Instructions for Disc: Activity as tolerated, Walk in house Other activity instructions: Fall precautions Exercise Instruction after Dis: Progress as tolerated Weight Bearing Status after Di: No restrictions Diet after Discharge Diet after Discharge: Diabetic No Calorie Level (Renal) Diet Texture: Regular Liquid Texture: Thin Liquid Swallowing Supervision: None needed Checks after Discharge Checks after discharge: Check blood press - daily, Check blood sugar, ac/hs DC Comment: Hemodialysis Contacting the DRPaige after DC Call your doctor for: Concerns you may have Follow-Up Follow up with: Dr.Pratip Aldana on Saturday, in 5 days Follow Up With: see Academic Department Chair, Treatment/Equipment after DC Adaptive Equipment Issued: None Discharge Respiratory Equipmen: Oxygen (2 lit/min) TRINA ALDANA MD Sep 07, 2021 08:05
--- NOTE | 2021-09-07 08:11 | PDOC3 ---
IM DISCHARGE SUMMARY Date of Admission Date of Admission Date of Admission: Sep 06, 2021 at 03:00 Date of Discharge Date of Discharge September 07, 2021 Primary Diagnosis Primary Diagnosis 1. Diabetes mellitus with severe hypoglycemia. 2. 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 3. Chest pain. Troponin elevated. This may be due to demand ischemia, hypertensive crisis and also contributed by end-stage renal disease. 4. Elevated BNP, likely due to hypertensive crisis and end-stage renal disease. 5. End-stage renal disease, on hemodialysis. 6. Chronic hypoxic respiratory failure, on oxygen by nasal cannula 2 liters per minute. 7. Chronic obstructive pulmonary disease. 8. Hypertensive crisis. 9. Gastroesophageal reflux disease. 10. Coronary artery disease with history of stent placement. 11. Mixed hyperlipidemia. 12. Chronic pancreatitis. 13. Anemia. 14. Physical deconditioning. 15. Osteoarthritis. 16. Chronic back pain. 17. Cervical spinal stenosis and cervical radiculopathy with several neck surgeries. 18. Vomiting likely gastroenteritis. Consults Consults Ted Dickey MD; Kp Riddle MD Labs Labs Laboratory Tests Test 09/06/21 11:40 09/06/21 16:50 09/06/21 18:00 09/06/21 18:55 Troponin I High Sensitivity 559 ng/L (4-75) H 386 ng/L (4-75) H Glucose (Fingerstick) 316 mg/dL (70-99) H 165 mg/dL (70-99) H Test 09/07/21 05:25 White Blood Count 9.3 x10^3/uL (4.0-11.0) Red Blood Count 3.32 x10^6/uL (4.30-5.70) L Hemoglobin 9.1 g/dL (13.0-17.5) L Hematocrit 28.1 % (39.0-53.0) L Mean Corpuscular Volume 85 fL (79-100) Mean Corpuscular Hemoglobin 27 pg (25-35) Mean Corpuscular Hemoglobin Concent 33 g/dL (31-37) Red Cell Distribution Width 16.6 % (11.5-14.5) H Platelet Count 347 x10^3/uL (140-400) Neutrophils (%) (Auto) 72 % (31-73) Lymphocytes (%) (Auto) 20 % (24-48) L Monocytes (%) (Auto) 6 % (0-9) Eosinophils (%) (Auto) 2 % (0-3) Basophils (%) (Auto) 1 % (0-3) Neutrophils # (Auto) 6.6 x10^3/uL (1.8-7.7) Lymphocytes # (Auto) 1.9 x10^3/uL (1.0-4.8) Monocytes # (Auto) 0.5 x10^3/uL (0.0-1.1) Eosinophils # (Auto) 0.2 x10^3/uL (0.0-0.7) Basophils # (Auto) 0.1 x10^3/uL (0.0-0.2) Sodium Level 136 mmol/L (136-145) Potassium Level 4.6 mmol/L (3.5-5.1) Chloride Level 98 mmol/L (98-107) Carbon Dioxide Level 29 mmol/L (21-32) Anion Gap 9 (6-14) Blood Urea Nitrogen 20 mg/dL (8-26) Creatinine 4.4 mg/dL (0.7-1.3) H Estimated GFR (Cockcroft-Gault) 17.0 BUN/Creatinine Ratio 5 (6-20) L Glucose Level 279 mg/dL (70-99) H Calcium Level 7.5 mg/dL (8.5-10.1) L Total Bilirubin 0.2 mg/dL (0.2-1.0) Aspartate Amino Transferase (AST) 13 U/L (15-37) L Alanine Aminotransferase (ALT) 15 U/L (16-63) L Alkaline Phosphatase 141 U/L (46-116) H Total Protein 6.3 g/dL (6.4-8.2) L Albumin 2.5 g/dL (3.4-5.0) L Albumin/Globulin Ratio 0.7 (1.0-1.7) L Laboratory Tests 09/07/21 05:25 Laboratory Tests 09/07/21 05:25 Brief hospital course Brief hospital course This is 56 years old male who has a history of diabetes mellitus, end-stage renal disease, on hemodialysis, COPD, on oxygen by nasal cannula 2 liters per minute for chronic respiratory failure, gastroesophageal reflux disease, diabetes mellitus with neuropathy and nephropathy and hypertension with recurrent hypertensive crisis, started having palpitations. His heart rate was racing. Previously, he has had nausea and vomiting and could not tolerate breakfast. He took his blood sugar and was noted to be 39. He also started having chest pains. Because of that, he came to the Emergency Room. In the emergency room, the patient was evaluated and was noted to have WBC count of 10.2, hemoglobin 9.6, potassium of 2.7, sodium 135, BUN 19, creatinine 5.7, calcium 7.6, phosphorus 4.8 and magnesium of 1.5, ALT 17, AST 10. Troponin 302. BNP 5549. Lipase 34. Acute abdominal series did not show any bowel obstruction. He was noted to have stable mild interstitial opacities, similar to previous exam. Previously, the patient had COVID-19 infection. Because of his hypokalemia, vomiting, chest pains and multiple other medical problems, the patient was admitted for further evaluation and management. The patient also is noted to have hypertensive crisis with a blood pressure of 217/85 in the emergency room. For more details regarding the past history, family history, social history, surgical history and other details, please refer to the H&P. 1. Chest pain. Consult Dr. Rome for cardiology evaluation and management. Continue to monitor. Chest pain is improving. 2. Diabetes mellitus with hypoglycemia. I will hold Lantus insulin and just use a sliding scale insulin for now. Hopefully, he will be able to tolerate diet. Unable to put IV line, so we will continue without the IV line as long as he is stable. He will also have dialysis access. He is tolerating diet. Change Lantus to 12 units subcu daily. Continue sliding scale that he has at home. He will increase the dose of insulin if his sugars start going up. 3. End-stage renal disease, on hemodialysis. Consult Dr. Riddle for nephrology evaluation and management. Continue hemodialysis. 4. Hypertensive crisis. We will restart all his home medications and monitor closely. Discussed with staff that he was on Catapres previously. Improving. Patient states that he was not taking Imdur at home and instead of the patch he was taking clonidine 0.1 mg 3 times daily. He is not taking Imdur at home and taking Coreg 25 mg twice a day. Changes were made on his discharge medication list. He is not very compliant with his medications. 5. Chronic hypoxic respiratory failure. Continue oxygen by nasal cannula 2 liters per minute. 6. Chronic obstructive pulmonary disease. Continue inhalers. 7. Hypokalemia resolved. 8. Vomiting and diarrhea resolved. For details, please refer to the orders. Prognosis of this patient is poor due to his multiple medical problems. Clinically much better. He does not have any chest pains or vomiting. He is agreeable to go home today. Will discharge home when okay with the robot programmer. See me in the office in 5 days. Medications Medications reviewed and reconciled for discharge. Home Meds Active Scripts Clonidine Hcl (CLONIDINE HCL) 0.1 Mg Tablet, 0.1 MG PO TID for HTN for 30 Days, #90 TAB Prov:TRINA ALDANA MD 09/07/21 Insulin Lispro (Admelog) 100 Unit/1 Ml Vial, 0 UNITS SQ TIDBFRMEAL for DM for 30 Days, #1 EACH Use sliding scale at home. Prov:TRINA ALDANA MD 09/07/21 Amlodipine Besylate (AMLODIPINE BESYLATE) 10 Mg Tablet, 10 MG PO DAILY for HTN for 30 Days, #30 TAB 5 Refills Prov:TRINA ALDANA MD 09/07/21 Carvedilol (CARVEDILOL) 25 Mg Tablet, 25 MG PO BIDWMEALS for CARDIAC for 30 Days, #60 TAB 5 Refills Prov:TRINA ALDANA MD 09/07/21 Atorvastatin Calcium (ATORVASTATIN CALCIUM) 40 Mg Tablet, 40 MG PO QHS for Hyperlipidemia for 30 Days, #30 TAB 5 Refills Prov:TRINA ALDANA MD 09/07/21 Insulin Glargine,Hum.rec.anlog (LANTUS SOLOSTAR) 100 Unit/1 Ml Insuln.pen, 12 UNIT SQ DAILY for DM, #15 ML 3 Refills Prov:TRINA ALDANA MD 09/07/21 Oxycodone/Apap 7.5-325 (PERCOCET 7.5-325 MG TABLET ) 1 Each Tablet, 1 TAB PO PRN Q6HRS PRN for PAIN, #40 TAB 0 Refills Prov:TRINA ALDANA MD 06/26/21 Methocarbamol (METHOCARBAMOL) 750 Mg Tablet, 750 MG PO PRN TID PRN for MUSCLE SPASMS for 10 Days, #30 TAB 1 Refill Prov:TRINA ALDANA MD 06/26/21 Baclofen (BACLOFEN) 10 Mg Tablet, 5 MG PO TID PRN for HICCUPS, #15 TAB Prov:TRINA ALDANA MD 04/25/21 Sevelamer Carbonate (RENVELA) 800 Mg Tablet, 800 MG PO TIDWMEALS for ESRD for 30 Days, #90 TAB 5 Refills Prov:TRINA ALDANA MD 07/04/20 Reported Medications [place]-3 Fatty Acids/Fish Oil (FISH OIL 1,000 MG SOFTGEL) 1 Each Capsule, 1 CAP PO DAILY for supplement for 30 Days, #30 CAP 0 Refills 09/06/21 Omeprazole (OMEPRAZOLE) 40 Mg Capsule.dr, 1 CAP PO DAILY for reflux, #30 CAP 3 Refills 09/06/21 Lipase/Protease/Amylase (ZENPEP DR 10,000 UNITS CAPSULE) 1 Each Capsule.dr, 3 CAP PO TIDWMEALS for supplement, CAP 04/18/21 Doxazosin Mesylate (DOXAZOSIN MESYLATE) 4 Mg Tablet, 1 TAB PO DAILY for HTN, #30 TAB 5 Refills 04/18/21 Trazodone Hcl (TRAZODONE HCL) 100 Mg Tablet, 1 TAB PO QHS for insomnia, #30 TAB 1 Refill 12/16/20 Hydralazine Hcl (HYDRALAZINE HCL) 100 Mg Tablet, 1 TAB PO TID for , #90 TAB 5 Refills 06/29/20 Aspirin (ASPIR 81) 81 Mg Tablet.dr, 1 TAB PO DAILY for heart healthy 08/26/17 Discontinued Reported Medications Ferrous Sulfate (FERROUS SULFATE) 325 Mg Tablet, 1 TAB PO DAILY for supplement, #30 TAB 3 Refills 09/06/21 Allergy Allergies Coded Allergies Type Severity Reaction Last Updated Verified morphine Allergy Intermediate Itching 06/29/20 Yes lisinopril Adverse Reaction Intermediate Dry Cough 04/17/21 Yes Follow up in 5 days. DISPOSITION: Home Comments Discharge Management - 35 minutes. For other details please refer to discharge instructions Justicifation of Admission Dx: Justifications for Admission: Justification of Admission Dx: N/A TRINA ALDANA MD Sep 07, 2021 08:11
[2021-09-07] MEDS: DOXAZOSIN MESYLATE 4 MG TABLET. PO SCH (09:10)
[2021-09-07] MEDS: ASPIRIN ENTERIC COATED 81 MG TABLET.DR. PO SCH (09:10)
--- NOTE | 2021-09-07 09:10 | PDOC ---
PRESTON CALABRESE ROXI 09/07/21 0910: CARDIO Progress Notes Date and Time Date of Service 09/07/21 Time of Evaluation 0910 Subjective Subjective: No Chest Pain, No shortness of breath, No Palpitations, Other (feeling well, would like to go home) Vitals Vitals Vital Signs Date Time Temp Pulse Resp B/P (MAP) Pulse Ox O2 Delivery O2 Flow Rate FiO2 09/07/21 07:56 172/72 09/07/21 02:47 Room Air 09/07/21 02:40 97.8 89 18 92 97.8 09/06/21 20:00 3.0 Weight Weight [ ] Input and Output Intake and Output Intake and Output 09/07/21 07:00 Intake Total 2100 ml Output Total 275 ml Balance 1825 ml Intake Oral 2100 ml Output Urine Total 275 ml # Voids 1 Laboratory Labs Laboratory Tests Test 09/06/21 11:40 09/06/21 16:50 09/06/21 18:00 09/06/21 18:55 Troponin I High Sensitivity 559 ng/L (4-75) 386 ng/L (4-75) Glucose (Fingerstick) 316 mg/dL (70-99) 165 mg/dL (70-99) Test 09/07/21 05:25 09/07/21 07:19 White Blood Count 9.3 x10^3/uL (4.0-11.0) Red Blood Count 3.32 x10^6/uL (4.30-5.70) Hemoglobin 9.1 g/dL (13.0-17.5) Hematocrit 28.1 % (39.0-53.0) Mean Corpuscular Volume 85 fL (79-100) Mean Corpuscular Hemoglobin 27 pg (25-35) Mean Corpuscular Hemoglobin Concent 33 g/dL (31-37) Red Cell Distribution Width 16.6 % (11.5-14.5) Platelet Count 347 x10^3/uL (140-400) Neutrophils (%) (Auto) 72 % (31-73) Lymphocytes (%) (Auto) 20 % (24-48) Monocytes (%) (Auto) 6 % (0-9) Eosinophils (%) (Auto) 2 % (0-3) Basophils (%) (Auto) 1 % (0-3) Neutrophils # (Auto) 6.6 x10^3/uL (1.8-7.7) Lymphocytes # (Auto) 1.9 x10^3/uL (1.0-4.8) Monocytes # (Auto) 0.5 x10^3/uL (0.0-1.1) Eosinophils # (Auto) 0.2 x10^3/uL (0.0-0.7) Basophils # (Auto) 0.1 x10^3/uL (0.0-0.2) Sodium Level 136 mmol/L (136-145) Potassium Level 4.6 mmol/L (3.5-5.1) Chloride Level 98 mmol/L (98-107) Carbon Dioxide Level 29 mmol/L (21-32) Anion Gap 9 (6-14) Blood Urea Nitrogen 20 mg/dL (8-26) Creatinine 4.4 mg/dL (0.7-1.3) Estimated GFR (Cockcroft-Gault) 17.0 BUN/Creatinine Ratio 5 (6-20) Glucose Level 279 mg/dL (70-99) Calcium Level 7.5 mg/dL (8.5-10.1) Total Bilirubin 0.2 mg/dL (0.2-1.0) Aspartate Amino Transf (AST/SGOT) 13 U/L (15-37) Alanine Aminotransferase (ALT/SGPT) 15 U/L (16-63) Alkaline Phosphatase 141 U/L (46-116) Total Protein 6.3 g/dL (6.4-8.2) Albumin 2.5 g/dL (3.4-5.0) Albumin/Globulin Ratio 0.7 (1.0-1.7) Glucose (Fingerstick) 263 mg/dL (70-99) Physical Exam Chest: Symmetric Heart: RRR Abdomen: Soft N/T Extremities: No Edema Neurology: alert, oriented, follow commands Assessment Assessment 1. Chest pain, pressure, palpitations. ? tachyarrhythmia in setting of severe hypokalemia, hypomagnesemia. No tachyarrhythmias noted on tele 2. CAD s/p PCI/stent to the LCx; [facility] 01/09 showed patent LCx stent and no lesions needing intervention. Follows with Dr. Jahaira FOSTER 3. HTN urgency: improved, but slightly labile 4. Elevated troponin; high sensitivity trop peak 559. Most probably type II, demand ischemia 5. Chronic diastolic CHF; appears compensated. recent echo with preserved LV systolic function 6. Hyperlipidemia 7. ESRD on HD 8. Diabetes, II with hypoglycemia 9. Hypokalemia, hypomagnesemia; replaced 10. Anemia Recommendations Secondary prevention measures Increase Imdur Fluid offloading via HD Consider outpatient event monitor and ischemic evaluation. Patient would like this conducted through [facility] Follow up with Dr. Campo as previously arranged Justicifation of Admission Dx: Justifications for Admission: Justification of Admission Dx: N/A PETRA TELLEZ MD 09/07/21 1534: CARDIO Progress Notes Plan Plan The patient was seen and interviewed as well as examined at the bedside. The chart was reviewed. The case was discussed. Agree with the plan of care. PRESTON CALABRESE APRN Sep 07, 2021 09:10 PETRA TELLEZ MD Sep 07, 2021 15:34
[2021-09-07] MEDS: ISOSORBIDE MONONITRATE ER 30 MG TAB.ER.24H PO SCH (09:11)
[2021-09-07] MEDS: HEPARIN for SUB-Q USE 5,000 UNIT/ML VIAL. SQ SCH (09:12)
[2021-09-07] MEDS ORDERED: ISOSORBIDE MONONITRATE ER 30 MG TAB.ER.24H PO ONE (10:30)
[2021-09-07] MEDS ORDERED: ISOS30TA68 PO (10:31)
[2021-09-07 10:56] VITALS: BP 165/69
--- NOTE | 2021-09-07 11:48 | NUR ---
Discharge Note: PT DISCHARGED HOME WITH SELF CARE. PT LEFT FACILITY VIA PRIVATE VEHICLE WITH BROTHER AT 1150. PT STABLE AND ALERT UPON DISCHARGE. PT HAD NO IV ACCESS TO REMOVE, TELE BOX REMOVED FROM PT PRIOR TO DISCHARGE. PT EDUCATED ABOUT DISCHARGE INSTRUCTIONS, DISCHARGE MEDICATIONS, AND FOLLOW-UP CARE INSTRUCTIONS. NO CONCERNS VOICED AT THIS TIME. PT LEFT WITH ALL PERSONAL BELONGINGS. ADAIR PINEDA [facility] Discharge instructions and discharge home medications reviewed with Patient and a copy given. All questions have been answered and understanding verbalized.
[2021-09-08] MEDS ORDERED: ISOSORBIDE MONONITRATE ER 30 MG TAB.ER.24H PO SCH (09:00)
--- NOTE | 2021-09-11 06:00 | CONS ---
DATE OF CONSULTATION: 09/10/2021 GASTROENTEROLOGY CONSULTATION REASON FOR CONSULTATION: Intractable nausea and vomiting. HISTORY OF PRESENT ILLNESS: This is a 56-year-old male whose past medical history is significant for end-stage diabetes with diabetic nephropathy, neuropathy, organic heart disease, on dialysis for end-stage renal disease, COPD, gastroesophageal reflux disease, chronic pancreatitis with pseudocyst drainage. He is readmitted to [facility] for intractable nausea and vomiting. The patient states he is unable to keep anything down, had persistent retching and so has been readmitted. PAST MEDICAL HISTORY: End-stage renal disease, COPD, organic heart disease, status post pseudocyst drainage. ALLERGIES: LISINOPRIL, MORPHINE. MEDICATIONS: Include amlodipine, aspirin, atorvastatin, baclofen, carvedilol, clonidine, doxazosin, hydralazine, insulin, isosorbide, Zenpep, methocarbamol, omeprazole, Percocet, Renvela, trazodone. SOCIAL HISTORY: Former drinker and smoker. FAMILY HISTORY: Noncontributory. REVIEW OF SYSTEMS: As above. PHYSICAL EXAMINATION: GENERAL: Reveals a thin male who is alert, cooperative, in no acute distress. VITAL SIGNS: Temp 97.4, pulse 89, respiratory rate 19, blood pressure is 202/94. HEENT: Normocephalic, atraumatic head. Pupils and extraocular muscles not tested. Sclerae are anicteric. NECK: Supple. LUNGS: Clear. CARDIOVASCULAR: Reveals an S1, S2, without S3, S4 or appreciable murmur. ABDOMEN: Reveals epigastric tenderness to palpation without appreciable hepatosplenomegaly with a midline surgical incision from previous pseudocyst drainage. EXTREMITIES: Reveals no cyanosis, clubbing or edema. Fistula is noted on one arm. LABORATORY DATA: Hemoglobin is 12.1, hematocrit 37.6, white count 10.6 and platelet count is 427,000. Beta natriuretic peptide is 13,889. Glucose is 261. Sodium 139, albumin 2.9, total protein 7.0, calcium 8.5, BUN 57, creatinine is 6.6, alk phos is 120, ALT is 14, AST is 7, bicarb is 26. Lipase is 18. Magnesium is 1.7. IMPRESSION AND PLAN: Abdominal pain, status post cholecystectomy with history of pseudocyst, end-stage diabetes, which is poorly controlled with end-stage renal failure, most likely component of diabetic gastroparesis that is contributing to lower gastric ____ in the a.m. to further assess. Previous endoscopies per the patient had been unrevealing for additional pathology. LILIA/DAMIAN/AUSTIN DR: Breezy TID: [id number] CC: TRINA ALDANA MD, FREDRICK JUAREZ MD
[2021-09-13] MEDS ORDERED: cloNIDine TTS-1 1 PATCH PATCH.TDWK TD SCH (09:00)
== END 2021-09-07 11:50 | disposition home or self-care (01) | DRG 304 ==
LOC: ER 01:36 → 5 SOUTH 03:00
PROVIDERS: ADMIT Internal Medicine; ATTEND Internal Medicine
PROC: 5A1D70Z Performance of Urinary Filtration, Intermittent, Less than 6 Hours Per Day (ICD-10-PCS; principal; 2021-09-06)
DX: I16.0 Hypertensive urgency (principal); N18.6 End stage renal disease; I24.8 Other forms of acute ischemic heart disease; J96.11 Chronic respiratory failure with hypoxia; I50.32 Chronic diastolic (congestive) heart failure; K86.0 Alcohol-induced chronic pancreatitis; I13.2 Hypertensive heart and chronic kidney disease with heart failure and with stage 5 chronic kidney disease, or end stage renal disease; E11.649 Type 2 diabetes mellitus with hypoglycemia without coma; D64.9 Anemia, unspecified; E11.22 Type 2 diabetes mellitus with diabetic chronic kidney disease; E11.40 Type 2 diabetes mellitus with diabetic neuropathy, unspecified; E78.2 Mixed hyperlipidemia; E83.42 Hypomagnesemia; E87.6 Hypokalemia; G89.29 Other chronic pain; I25.10 Atherosclerotic heart disease of native coronary artery without angina pectoris; I25.2 Old myocardial infarction; J44.9 Chronic obstructive pulmonary disease, unspecified; K21.9 Gastro-esophageal reflux disease without esophagitis; M19.90 Unspecified osteoarthritis, unspecified site; M48.02 Spinal stenosis, cervical region; M54.12 Radiculopathy, cervical region; Z79.4 Long term (current) use of insulin; Z82.49 Family history of ischemic heart disease and other diseases of the circulatory system; Z83.3 Family history of diabetes mellitus; Z86.16 Personal history of COVID-19; Z87.01 Personal history of pneumonia (recurrent); Z87.891 Personal history of nicotine dependence; Z90.49 Acquired absence of other specified parts of digestive tract; Z95.5 Presence of coronary angioplasty implant and graft; Z98.1 Arthrodesis status; Z99.2 Dependence on renal dialysis; Z99.81 Dependence on supplemental oxygen; F10.10 Alcohol abuse, uncomplicated; F41.9 Anxiety disorder, unspecified; K52.9 Noninfective gastroenteritis and colitis, unspecified; Z20.822 Contact with and (suspected) exposure to COVID-19
CPT/HCPCS: 36415; 74022; 80053; 80061; 82962; 83690; 83735; 83880; 84100; 84484; 85025; 87340; 87428; 93005; 96365; 96375; 96376; G0378; J1644; J1815; J2405; J7060; 99285-25

== ENCOUNTER 2021-09-09 20:31 | Inpatient (IN) | payer BC ==
[~2021-09-09] VITALS: Ht 165.1 cm; Wt 59.0 kg
[~2021-09-09 20:31] MED LIST changes: +ATOR40TA59 PO; +CLON0.1T PO; +FERR325T14 PO; +OMEG1CAP50 PO
[2021-09-09] MEDS ORDERED: ONDANSETRON PF 4 MG/2 ML VIAL. IVP ONE (21:00)
[2021-09-09 21:21] LABS: BASO # 0.1 x10^3/uL (0.0-0.2); BASO % 1 % (0-3); EOS % 0 % (0-3); HEMATOCRIT 37.6 % (39.0-53.0); HEMOGLOBIN 12.1 g/dL (13.0-17.5); LYMPH % 10 % (24-48); MEAN CORPUSCULAR HEMOGLOBIN 27 pg (25-35); MEAN CORPUSCULAR HGB CONC 32 g/dL (31-37); MEAN CORPUSCULAR VOLUME 84 fL (79-100); MONO # 0.5 x10^3/uL (0.0-1.1); MONO % 5 % (0-9); NEUT % 85 % (31-73); PLATELET COUNT 427 x10^3/uL (140-400); RED BLOOD COUNT 4.48 x10^6/uL (4.30-5.70); RED CELL DISTRIBUTION WIDTH 17.3 % (11.5-14.5); WHITE BLOOD COUNT 10.6 x10^3/uL (4.0-11.0)
[2021-09-09 21:37] LABS: CALCIUM 8.5 mg/dL (8.5-10.1); CREATININE 6.6 mg/dL (0.7-1.3); GFR 10.6
[2021-09-09 21:44] LABS: ALBUMIN 2.9 g/dL (3.4-5.0); ALBUMIN/GLOBULIN RATIO 0.7 (1.0-1.7); MAGNESIUM 1.7 mg/dL (1.8-2.4); TOTAL BILIRUBIN 0.4 mg/dL (0.2-1.0)
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
--- NOTE | 2021-09-09 21:59 | RAD ---
EXAM: Chest, single view. HISTORY: Nausea and vomiting COMPARISON: 04/27/2021. FINDINGS: A frontal view of the chest is obtained. There is no infiltrate, pleural effusion or pneumo thorax. The heart is normal in size. IMPRESSION: No acute pulmonary finding. Electronically signed by: Kala Sheriff MD (09/09/2021 9:57 PM) [facility]
[2021-09-09] MEDS ORDERED: DEXTROSE 50% 25 GM / 50ML DISP.SYRIN. IV PRN (22:00)
[2021-09-09] MEDS ORDERED: hydrALAZINE 20 MG/ML VIAL. IVP PRN (22:00)
[2021-09-09] MEDS ORDERED: IV DEXTROSE 5% 250 ML BAG. IV PRN (22:00)
[2021-09-09] MEDS ORDERED: ONDANSETRON PF 4 MG/2 ML VIAL. IVP PRN (22:00)
[2021-09-09] MEDS ORDERED: IV DEXTROSE 5 %-0.45 % NACL 1,000 ML IV ONE (22:00)
[2021-09-09] MEDS ORDERED: PROCHLORPERAZINE 10 MG/2 ML VIAL. IV PRN (22:10)
[2021-09-09] MEDS ORDERED: PROCHLORPERAZINE 10 MG/2 ML VIAL. IV ONE (22:15)
[2021-09-09] MEDS ORDERED: INSULIN REGULAR 100 UNIT/ML 3ML VIAL. IV ONE (22:15)
[2021-09-09] MEDS ORDERED: LABETALOL 20 MG/4 ML DISP.SYRIN. IVP ONE (22:15)
--- NOTE | 2021-09-09 22:55 | EKG ---
[facility] [address] [place] [address] Test Date: 2021-09-09 Test Time: 22:00:07 Pat Name: ADAIR PINEDA Department: Room: [facility] Gender: M Accounting Teacher: : 1965 Requested By: LAKEISHA TIM Order Number: [id number] Reading MD: Ted Dickey Measurements Intervals [place] Rate: 89 P: 90 RI: 72 QRS: 155 QRSD: 214 T: 160 QT: 428 QTc: 522 Interpretive Statements SINUS RHYTHM LEFT VENTRICULAR HYPERTROPHY NON SPECIFIC INTRAVENTRICULAR BLOCK QRS(T) CONTOUR ABNORMALITY CONSIDER OLD ANTEROSEPTAL INFARCT ABNORMAL ECG Electronically Signed On 09-10-2021 13:47:51 PHARMACEUTICAL COMPOUNDING SUPERVISOR by Ted Dickey
[2021-09-10] VITALS (7 sets, daily range): BP systolic 147–214; BP diastolic 70–94
[2021-09-10] MEDS: fentaNYL PF VIAL 100 MCG/2 ML VIAL IVP PRN ×2 (01:31→04:56)
[2021-09-10] MEDS ORDERED: oxyCODONE/APAP 7.5/325 1 TAB TABLET PO PRN (09:30)
[2021-09-10] MEDS ORDERED: ACETAMINOPHEN 325 MG TABLET. PO PRN (09:30)
[2021-09-10] MEDS ORDERED: cloNIDine TTS-2 1 PATCH PATCH TD ONE (09:30)
[2021-09-10] MEDS ORDERED: ONDANSETRON PF 4 MG/2 ML VIAL. IVP PRN (09:30)
--- NOTE | 2021-09-10 10:01 | PDOC ---
Provider Note Date of Service: DATE: 09/10/21 TIME: 10:01 Provider Note H&P dictated #[id number] Justifications for Admission Other Justification TRINA ALDANA MD Sep 10, 2021 10:01
[2021-09-10] MEDS: PANTOPRAZOLE IV PUSH 40 MG VIAL. IVP SCH (10:19)
[2021-09-10] MEDS: INSULIN LISPRO 300 UNITS/3 ML VIAL. SQ SCH ×3 (10:23→17:00)
[2021-09-10] MEDS: DOXAZOSIN MESYLATE 4 MG TABLET. PO SCH (10:30)
[2021-09-10] MEDS: CARVEDILOL 12.5 MG TABLET. PO SCH ×2 (10:31→17:06)
[2021-09-10] MEDS: ISOSORBIDE MONONITRATE ER 30 MG TAB.ER.24H PO SCH (10:32)
[2021-09-10] MEDS: LIPASE/PROTEAS/AMYLAS 10/32/42 CAPSULE.DR. PO SCH ×2 (10:39→17:05)
--- NOTE | 2021-09-10 11:22 | HP ---
DATE OF SERVICE: 09/10/2021 ADMIT DATE: 09/09/2021 HISTORY OF PRESENT ILLNESS: This is a 56-year-old male who has a history of end-stage renal disease, on hemodialysis with diabetes mellitus with diabetic nephropathy, neuropathy, COPD, on oxygen by nasal cannula 2 liters per minute for chronic respiratory failure, gastroesophageal reflux disease and hypertension with recurrent hypertensive crisis, was just admitted here on 09/06 because of severe hypoglycemia, hypokalemia, chest pain and vomiting. During the stay in the hospital, myocardial infarction was ruled out. Potassium was corrected. The patient received hemodialysis. His blood pressure was better controlled. He did not have any nausea and vomiting and was discharged home on . However, the patient states that after he went home, he started having nausea and vomiting and has not been able to keep anything down, so he call me back yesterday evening and has been readmitted this time for nausea and vomiting. In the Emergency Room, chest x-ray was unremarkable. His blood pressure was extremely high at 245/105 and 233/109. Because of the persistent nausea and vomiting, inability to keep anything down and hypertensive crisis, the patient was admitted for further evaluation and management. SYSTEMS REVIEW: This morning, he does not have any nausea or vomiting, but had a lot of hiccups last night. Hiccups are improving. Denies any fever, chills, diarrhea or constipation. He denies any chest pains or palpitations or dyspnea. Other systems reviewed and are negative. PAST MEDICAL HISTORY: Please refer to the previous admission for details. 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 SURGICAL HISTORY: Includes lumbar diskectomy in 2008, cholecystectomy in 2008. Treatment for pancreatic pseudocyst that was removed in 2001. Again, had lumbar microsurgery in 09/2017, cardiac stent placement and removal of saliva gland. He had a posterior cervical hemilaminectomy C5-C6 and C6-C7, cervical laminectomy C3-C4, C4-C5 and posterior instrumentation and fusion of C3-C4 and C4-C5 in 06/2021. SOCIAL HISTORY: Smokes at least 1 pack per day for over 30 years. His past history of alcohol abuse, quit drinking alcohol more than 10 years ago. No history of drug abuse. ALLERGIES: None known any. MEDICATIONS: Reviewed and reconciled. FAMILY HISTORY: Positive for cancer, diabetes, hypertension and heart disease. PHYSICAL EXAMINATION: VITAL SIGNS: Temperature 97.8, pulse 97 per minute, respirations 18 per minute, blood pressure 233/109 mmHg. GENERAL: The patient is in middle-aged male who is alert, oriented x 3, and appears to be chronically ill. He is on oxygen by nasal cannula. EYES: Pupils reactive to light. Conjunctivae pale. Sclerae muddy. HEENT: Unremarkable. NECK: Supple. JVP normal. No thyromegaly. Trachea midline. LUNGS: Decreased breath sounds at bases. CARDIOVASCULAR: S1, S2, regular. ABDOMEN: Soft, no tenderness, no guarding, no rigidity. Bowel sounds decreased. No distention noted. ABDOMEN: Soft. EXTREMITIES: No edema, no cyanosis, no calf tenderness. CENTRAL NERVOUS SYSTEM: Alert and oriented. Generalized weakness, recent neck surgery. LABORATORY FINDINGS: WBC count 10.6, hemoglobin 12.1, platelet count 427,000. Sodium 139, potassium 4, BUN 37, creatinine 6.6, glucose 385, calcium 8.5, magnesium 1.7, albumin 2.9, lipase 18. BNP 13,889. Troponin 131, 129. Glucose 269, 251. Chest x-ray, no acute pulmonary findings. Rapid antigen COVID-19 test in the Emergency Room was negative. IMPRESSION: 1. Acute gastroenteritis. 2. Recurrent vomiting may be due to motility disorder also. 3. Acute hypertensive crisis. 4. Elevated troponin may be due to demand ischemia, hypertensive crisis and also contributed by end-stage renal disease. 5. Elevated BNP, likely due to hypertensive crisis, as well as end-stage renal disease. 6. 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 7. End-stage renal disease, on hemodialysis. 8. Chronic hypoxic respiratory failure, on oxygen by nasal cannula 2 liters per minute. 9. Chronic obstructive pulmonary disease. 10. Hypertensive crisis. 11. Gastroesophageal reflux disease. 12. Coronary artery disease with history of stent placement. 13. Mixed hyperlipidemia. 14. Chronic pancreatitis. 15. Anemia. 16. Physical deconditioning. 17. Osteoarthritis 18. Chronic back pain. 19. Cervical spinal stenosis and cervical radiculopathy with several neck surgeries. PLAN: 1. Persistent nausea and vomiting, likely due to acute gastroenteritis. Consult Dr. Santo for GI evaluation and management. I will start him on clear liquid diet to see if he tolerates and advance diet as tolerated. I will give him IV fluids. Continue p.r.n. Zofran and Compazine. Hold most of his medications. Start IV Protonix. 2. Diabetes mellitus, currently with hyperglycemia. Continue sliding scale insulin. We will add Lantus if he starts eating. 3. End-stage renal disease, on hemodialysis. Consult Dr. Riddle for nephrology evaluation and management. 4. Hypertensive crisis, start him on Catapres patch. IV hydralazine p.r.n. For details, please refer to the orders. Hold most of his oral medications as he is not able to tolerate them. Consult Dr. Rome for Cardiology evaluation and management. 5. Elevated troponin, likely due to demand ischemia as well as hypertensive crisis, as well as end-stage renal disease. Consult supervisor special services. Elevated BNP, monitor. 6. COPD. Continue oxygen by nasal cannula. For details, please refer to the orders. Prognosis of this patient is very poor due to his multiple medical problems. VAZQUEZ/MORALES DR: VAZQUEZ/rene TID: [id number]
--- NOTE | 2021-09-10 11:29 | PDOC2 ---
CONSULT Date of Consult Date of Consult DATE: 09/10/21 TIME: 11:27 Reason for Consult Reason for Consult: N/V s/p abhijit ith ESRD Past Medical History Cardiovascular: CAD, HTN, Hyperlipidemia Pulmonary: No pertinent hx GI: GERD, Other Heme/Onc: Anemia NOS, Cancer, Other Hepatobiliary: Other Psych: Anxiety, Other Rheumatologic: No pertinent hx Infectious disease: No pertinent hx Renal/: Chronic renal insuff Endocrine: Diabetes Past Surgical History Past Surgical History: Cholecystectomy, Tonsillectomy, Other Family History Family History: Coronary Artery Disease, Diabetes, Hypertension, Kidney Disease Social History ALCOHOL: other Lives: Alone Current Problem List Problem List Problems Medical Problems: (1) Accelerated hypertension Status: Acute (2) Hyperglycemia Status: Acute Current Medications Current Medications Current Medications Ondansetron HCl (Zofran) 4 mg 1X ONCE IVP ; Start 09/09/21 at 21:00; Stop 09/09/21 at 21:01; Status DC Ondansetron HCl (Zofran) 4 mg PRN Q8HRS PRN IVP NAUSEA/VOMITING 1ST CHOICE Last administered on 09/10/21at 01:30; Start 09/09/21 at 22:00; Stop 09/10/21 at 09:53; Status DC Fentanyl Citrate (Fentanyl 2ml Vial) 50 mcg PRN Q1HR PRN IVP PAIN Last administered on 09/10/21at 04:56; Start 09/09/21 at 22:00; Stop 09/10/21 at 21:59 Insulin Human Lispro (HumaLOG) 0-7 UNITS TIDWMEALS SQ Last administered on 09/10/21at 10:23; Start 09/10/21 at 08:00 Dextrose (Dextrose 50%-Water Syringe) 12.5 gm PRN Q15MIN PRN IV SEE COMMENTS; Start 09/09/21 at 22:00 Dextrose (Iv Dextrose 5%) 250 ml PRN Q15MIN PRN IV SEE COMMENTS; Start 09/09/21 at 22:00 Prochlorperazine Edisylate (Compazine) 10 mg PRN Q6HRS PRN IV NAUSEA/VOMITING 2ND CHOICE; Start 09/09/21 at 22:10 Pantoprazole Sodium (PROTONIX VIAL for IV PUSH) 40 mg DAILYAC IVP Last administered on 09/10/21at 10:19; Start 09/10/21 at 07:30 Dextrose/Sodium Chloride 1,000 ml @ 60 mls/hr 1X ONCE IV Last administered on 09/10/21at 04:57; Start 09/09/21 at 22:00; Stop 09/10/21 at 14:39 Hydralazine HCl (Apresoline Inj) 10 mg PRN Q4HRS PRN IVP HYPERTENSION Last administered on 09/10/21at 01:32; Start 09/09/21 at 22:00 Labetalol HCl (Normodyne Iv Push) 10 mg 1X ONCE IVP Last administered on 09/09/21at 23:42; Start 09/09/21 at 22:15; Stop 09/09/21 at 22:16; Status DC Insulin Human Regular (HumuLIN R VIAL) 6 unit 1X ONCE IV Last administered on 09/09/21at 23:35; Start 09/09/21 at 22:15; Stop 09/09/21 at 22:16; Status DC Prochlorperazine Edisylate (Compazine) 10 mg 1X ONCE IV Last administered on 09/09/21at 23:43; Start 09/09/21 at 22:15; Stop 09/09/21 at 22:16; Status DC Acetaminophen (Tylenol) 650 mg PRN Q6HRS PRN PO MILD PAIN / TEMP > 100.3'F; Start 09/10/21 at 09:30 Ondansetron HCl (Zofran) 4 mg Q6HRS PRN IVP NAUSEA/VOMITING; Start 09/10/21 at 09:30 Amylase/Lipase/ Protease (Zenpep 10,000) 3 cap TIDWMEALS PO Last administered on 09/10/21at 10:39; Start 09/10/21 at 12:00 Oxycodone/ Acetaminophen (Percocet 7.5/ 325) 1 tab PRN Q6HRS PRN PO MODERATE PAIN, SEVERE PAIN; Start 09/10/21 at 09:30 Clonidine HCl (Catapres Tts-2) 1 patch 1X ONCE TD Last administered on 09/10/21at 10:31; Start 09/10/21 at 09:30; Stop 09/10/21 at 09:31; Status DC Carvedilol (Coreg) 25 mg BIDWMEALS PO Last administered on 09/10/21at 10:31; Start 09/10/21 at 11:00 Doxazosin Mesylate (Cardura) 4 mg DAILY PO Last administered on 09/10/21at 10:30; Start 09/10/21 at 11:00 Isosorbide Mononitrate (Imdur) 30 mg DAILY PO Last administered on 09/10/21at 10:32; Start 09/10/21 at 11:00 Active Scripts Active Isosorbide Mononitrate Er (Isosorbide Mononitrate) 30 Mg Tab.er.24h 1 Tab PO DAILY 30 Days Clonidine Hcl 0.1 Mg Tablet 0.1 Mg PO TID 30 Days Admelog (Insulin Lispro) 100 Unit/1 Ml Vial 0 Units SQ TIDBFRMEAL 30 Days Use sliding scale at home. Amlodipine Besylate 10 Mg Tablet 10 Mg PO DAILY 30 Days Carvedilol 25 Mg Tablet 25 Mg PO BIDWMEALS 30 Days Atorvastatin Calcium 40 Mg Tablet 40 Mg PO QHS 30 Days Lantus Solostar (Insulin Glargine,Hum.rec.anlog) 100 Unit/1 Ml Insuln.pen 12 Unit SQ DAILY Percocet 7.5-325 Mg Tablet (Oxycodone/Acetaminophen) 1 Each Tablet 1 Tab PO PRN Q6HRS PRN Methocarbamol 750 Mg Tablet 750 Mg PO PRN TID PRN 10 Days Baclofen 10 Mg Tablet 5 Mg PO TID PRN Renvela (Sevelamer Carbonate) 800 Mg Tablet 800 Mg PO TIDWMEALS 30 Days Reported Fish Oil 1,000 Mg Softgel ([place]-3 Fatty Acids/Fish Oil) 1 Each Capsule 1 Cap PO DAILY 30 Days Omeprazole 40 Mg Capsule. 1 Cap PO DAILY Zenpep Dr 10,000 Units Capsule (Lipase/Protease/Amylase) 1 Each Capsule. 3 Cap PO TIDWMEALS Doxazosin Mesylate 4 Mg Tablet 1 Tab PO DAILY Trazodone Hcl 100 Mg Tablet 1 Tab PO QHS Hydralazine Hcl 100 Mg Tablet 1 Tab PO TID Aspir 81 (Aspirin) 81 Mg Tablet.dr 1 Tab PO DAILY Allergies Allergies: Coded Allergies: morphine (Verified Allergy, Intermediate, Itching, 09/09/21) lisinopril (Verified Adverse Reaction, Intermediate, Dry Cough, 09/09/21) Dry Cough Vitals VITALS Vital Signs Date Time Temp Pulse Resp B/P (MAP) Pulse Ox O2 Delivery O2 Flow Rate FiO2 09/10/21 10:58 97.4 89 19 203/94 (130) 98 Room Air 97.4 Labs Labs Laboratory Tests Test 09/09/21 21:10 09/10/21 02:15 09/10/21 04:00 09/10/21 08:36 White Blood Count 10.6 x10^3/uL (4.0-11.0) Red Blood Count 4.48 x10^6/uL (4.30-5.70) Hemoglobin 12.1 g/dL (13.0-17.5) Hematocrit 37.6 % (39.0-53.0) Mean Corpuscular Volume 84 fL (79-100) Mean Corpuscular Hemoglobin 27 pg (25-35) Mean Corpuscular Hemoglobin Concent 32 g/dL (31-37) Red Cell Distribution Width 17.3 % (11.5-14.5) Platelet Count 427 x10^3/uL (140-400) Neutrophils (%) (Auto) 85 % (31-73) Lymphocytes (%) (Auto) 10 % (24-48) Monocytes (%) (Auto) 5 % (0-9) Eosinophils (%) (Auto) 0 % (0-3) Basophils (%) (Auto) 1 % (0-3) Neutrophils # (Auto) 9.0 x10^3/uL (1.8-7.7) Lymphocytes # (Auto) 1.0 x10^3/uL (1.0-4.8) Monocytes # (Auto) 0.5 x10^3/uL (0.0-1.1) Eosinophils # (Auto) 0.0 x10^3/uL (0.0-0.7) Basophils # (Auto) 0.1 x10^3/uL (0.0-0.2) Sodium Level 139 mmol/L (136-145) Potassium Level 4.0 mmol/L (3.5-5.1) Chloride Level 95 mmol/L (98-107) Carbon Dioxide Level 28 mmol/L (21-32) Anion Gap 16 (6-14) Blood Urea Nitrogen 37 mg/dL (8-26) Creatinine 6.6 mg/dL (0.7-1.3) Estimated GFR (Cockcroft-Gault) 10.6 BUN/Creatinine Ratio 6 (6-20) Glucose Level 385 mg/dL (70-99) Calcium Level 8.5 mg/dL (8.5-10.1) Magnesium Level 1.7 mg/dL (1.8-2.4) Total Bilirubin 0.4 mg/dL (0.2-1.0) Aspartate Amino Transf (AST/SGOT) 7 U/L (15-37) Alanine Aminotransferase (ALT/SGPT) 14 U/L (16-63) Alkaline Phosphatase 128 U/L (46-116) Troponin I High Sensitivity 131 ng/L (4-75) 129 ng/L (4-75) CH-Uqh-H-Type Natriuretic Peptide 65288 pg/mL (0-124) Total Protein 7.0 g/dL (6.4-8.2) Albumin 2.9 g/dL (3.4-5.0) Albumin/Globulin Ratio 0.7 (1.0-1.7) Lipase 18 U/L (73-393) Glucose (Fingerstick) 269 mg/dL (70-99) 251 mg/dL (70-99) Laboratory Tests Test 09/09/21 21:10 09/10/21 02:15 09/10/21 04:00 09/10/21 08:36 White Blood Count 10.6 x10^3/uL (4.0-11.0) Red Blood Count 4.48 x10^6/uL (4.30-5.70) Hemoglobin 12.1 g/dL (13.0-17.5) Hematocrit 37.6 % (39.0-53.0) Mean Corpuscular Volume 84 fL (79-100) Mean Corpuscular Hemoglobin 27 pg (25-35) Mean Corpuscular Hemoglobin Concent 32 g/dL (31-37) Red Cell Distribution Width 17.3 % (11.5-14.5) Platelet Count 427 x10^3/uL (140-400) Neutrophils (%) (Auto) 85 % (31-73) Lymphocytes (%) (Auto) 10 % (24-48) Monocytes (%) (Auto) 5 % (0-9) Eosinophils (%) (Auto) 0 % (0-3) Basophils (%) (Auto) 1 % (0-3) Neutrophils # (Auto) 9.0 x10^3/uL (1.8-7.7) Lymphocytes # (Auto) 1.0 x10^3/uL (1.0-4.8) Monocytes # (Auto) 0.5 x10^3/uL (0.0-1.1) Eosinophils # (Auto) 0.0 x10^3/uL (0.0-0.7) Basophils # (Auto) 0.1 x10^3/uL (0.0-0.2) Sodium Level 139 mmol/L (136-145) Potassium Level 4.0 mmol/L (3.5-5.1) Chloride Level 95 mmol/L (98-107) Carbon Dioxide Level 28 mmol/L (21-32) Anion Gap 16 (6-14) Blood Urea Nitrogen 37 mg/dL (8-26) Creatinine 6.6 mg/dL (0.7-1.3) Estimated GFR (Cockcroft-Gault) 10.6 BUN/Creatinine Ratio 6 (6-20) Glucose Level 385 mg/dL (70-99) Calcium Level 8.5 mg/dL (8.5-10.1) Magnesium Level 1.7 mg/dL (1.8-2.4) Total Bilirubin 0.4 mg/dL (0.2-1.0) Aspartate Amino Transf (AST/SGOT) 7 U/L (15-37) Alanine Aminotransferase (ALT/SGPT) 14 U/L (16-63) Alkaline Phosphatase 128 U/L (46-116) Troponin I High Sensitivity 131 ng/L (4-75) 129 ng/L (4-75) VI-Yzn-T-Type Natriuretic Peptide 43908 pg/mL (0-124) Total Protein 7.0 g/dL (6.4-8.2) Albumin 2.9 g/dL (3.4-5.0) Albumin/Globulin Ratio 0.7 (1.0-1.7) Lipase 18 U/L (73-393) Glucose (Fingerstick) 269 mg/dL (70-99) 251 mg/dL (70-99) Assessment/Plan Assessment/Plan N/V- S/P abhijit with ESRD/DM. most likely multifactorial in etiology. Gastroparesis component likely. Plan GES improved glycemic control consider CT abd/pelvis if above unrevealing. with prior history of chronic pancreatitis/pseudocyst s/p internal drainage Full note dictated LEDA MCCRACKEN MD Sep 10, 2021 11:29
--- NOTE | 2021-09-10 12:01 | NUR ---
Held 12noon insulin due to giving morning insulin late. Will monitor.
[2021-09-10 12:32] LABS: ALBUMIN 2.2 g/dL (3.4-5.0); ALBUMIN/GLOBULIN RATIO 0.6 (1.0-1.7); CALCIUM 7.6 mg/dL (8.5-10.1); CREATININE 7.4 mg/dL (0.7-1.3); GFR 9.3; TOTAL BILIRUBIN 0.2 mg/dL (0.2-1.0); TOTAL PROTEIN 5.7 g/dL (6.4-8.2)
[2021-09-10 12:35] LABS: POTASSIUM 2.7 mmol/L (3.5-5.1)
--- NOTE | 2021-09-10 12:56 | PDOC2 ---
CONSULT Date of Consult Date of Consult DATE: 09/10/21 TIME: 12:56 Reason for Consult Reason for Consult: Nausea, vomiting Referring Physician Referring Physician: Dr. Valadez Identification/Chief Complaint Chief Complaint Nausea and vomiting Source Source: Chart review, Patient History of Present Illness Reason for Visit: 56-year-old male with history of end-stage renal disease on hemodialysis, COPD and coronary artery disease was recently discharged from [facility] after being evaluated for hypoglycemia, chest pain and hypertensive urgency presented with refractory nausea and vomiting. His blood pressure was found to be significantly elevated and has been admitted for further management. He denied any chest pain, orthopnea/PND, palpitations or syncope. Past Medical History Cardiovascular: CAD, HTN, Hyperlipidemia Pulmonary: No pertinent hx GI: GERD, Other Heme/Onc: Anemia NOS, Cancer, Other Hepatobiliary: Other Psych: Anxiety, Other Rheumatologic: No pertinent hx Infectious disease: No pertinent hx Renal/: Chronic renal insuff Endocrine: Diabetes Past Surgical History Past Surgical History: Cholecystectomy, Tonsillectomy, Other Family History Family History: Coronary Artery Disease, Diabetes, Hypertension, Kidney Disease Social History ALCOHOL: other Lives: Alone Current Problem List Problem List Problems Medical Problems: (1) Accelerated hypertension Status: Acute (2) Hyperglycemia Status: Acute Current Medications Current Medications Current Medications Ondansetron HCl (Zofran) 4 mg 1X ONCE IVP ; Start 09/09/21 at 21:00; Stop 09/09/21 at 21:01; Status DC Ondansetron HCl (Zofran) 4 mg PRN Q8HRS PRN IVP NAUSEA/VOMITING 1ST CHOICE Last administered on 09/10/21at 01:30; Start 09/09/21 at 22:00; Stop 09/10/21 at 09:53; Status DC Fentanyl Citrate (Fentanyl 2ml Vial) 50 mcg PRN Q1HR PRN IVP PAIN Last administered on 09/10/21at 04:56; Start 09/09/21 at 22:00; Stop 09/10/21 at 21:59 Insulin Human Lispro (HumaLOG) 0-7 UNITS TIDWMEALS SQ Last administered on 09/10/21at 10:23; Start 09/10/21 at 08:00 Dextrose (Dextrose 50%-Water Syringe) 12.5 gm PRN Q15MIN PRN IV SEE COMMENTS; Start 09/09/21 at 22:00 Dextrose (Iv Dextrose 5%) 250 ml PRN Q15MIN PRN IV SEE COMMENTS; Start 09/09/21 at 22:00 Prochlorperazine Edisylate (Compazine) 10 mg PRN Q6HRS PRN IV NAUSEA/VOMITING 2ND CHOICE; Start 09/09/21 at 22:10 Pantoprazole Sodium (PROTONIX VIAL for IV PUSH) 40 mg DAILYAC IVP Last administered on 09/10/21at 10:19; Start 09/10/21 at 07:30 Dextrose/Sodium Chloride 1,000 ml @ 60 mls/hr 1X ONCE IV Last administered on 09/10/21at 04:57; Start 09/09/21 at 22:00; Stop 09/10/21 at 14:39 Hydralazine HCl (Apresoline Inj) 10 mg PRN Q4HRS PRN IVP HYPERTENSION Last a dministered on 09/10/21at 01:32; Start 09/09/21 at 22:00 Labetalol HCl (Normodyne Iv Push) 10 mg 1X ONCE IVP Last administered on 09/09/21at 23:42; Start 09/09/21 at 22:15; Stop 09/09/21 at 22:16; Status DC Insulin Human Regular (HumuLIN R VIAL) 6 unit 1X ONCE IV Last administered on 09/09/21at 23:35; Start 09/09/21 at 22:15; Stop 09/09/21 at 22:16; Status DC Prochlorperazine Edisylate (Compazine) 10 mg 1X ONCE IV Last administered on 09/09/21at 23:43; Start 09/09/21 at 22:15; Stop 09/09/21 at 22:16; Status DC Acetaminophen (Tylenol) 650 mg PRN Q6HRS PRN PO MILD PAIN / TEMP > 100.3'F; Start 09/10/21 at 09:30 Ondansetron HCl (Zofran) 4 mg Q6HRS PRN IVP NAUSEA/VOMITING; Start 09/10/21 at 09:30 Amylase/Lipase/ Protease (Zenpep 10,000) 3 cap TIDWMEALS PO Last administered on 09/10/21at 10:39; Start 09/10/21 at 12:00 Oxycodone/ Acetaminophen (Percocet 7.5/ 325) 1 tab PRN Q6HRS PRN PO MODERATE PAIN, SEVERE PAIN; Start 09/10/21 at 09:30 Clonidine HCl (Catapres Tts-2) 1 patch 1X ONCE TD Last administered on 09/10/21at 10:31; Start 09/10/21 at 09:30; Stop 09/10/21 at 09:31; Status DC Carvedilol (Coreg) 25 mg BIDWMEALS PO Last administered on 09/10/21at 10:31; Start 09/10/21 at 11:00 Doxazosin Mesylate (Cardura) 4 mg DAILY PO Last administered on 09/10/21at 10 :30; Start 09/10/21 at 11:00 Isosorbide Mononitrate (Imdur) 30 mg DAILY PO Last administered on 09/10/21at 10:32; Start 09/10/21 at 11:00 Potassium Chloride/Water 100 ml @ 100 mls/hr Q1H IV ; Start 09/10/21 at 13:00; Stop 09/10/21 at 16:59 Active Scripts Active Isosorbide Mononitrate Er (Isosorbide Mononitrate) 30 Mg Tab.er.24h 1 Tab PO DAILY 30 Days Clonidine Hcl 0.1 Mg Tablet 0.1 Mg PO TID 30 Days Admelog (Insulin Lispro) 100 Unit/1 Ml Vial 0 Units SQ TIDBFRMEAL 30 Days Use sliding scale at home. Amlodipine Besylate 10 Mg Tablet 10 Mg PO DAILY 30 Days Carvedilol 25 Mg Tablet 25 Mg PO BIDWMEALS 30 Days Atorvastatin Calcium 40 Mg Tablet 40 Mg PO QHS 30 Days Lantus Solostar (Insulin Glargine,Hum.rec.anlog) 100 Unit/1 Ml Insuln.pen 12 Unit SQ DAILY Percocet 7.5-325 Mg Tablet (Oxycodone/Acetaminophen) 1 Each Tablet 1 Tab PO PRN Q6HRS PRN Methocarbamol 750 Mg Tablet 750 Mg PO PRN TID PRN 10 Days Baclofen 10 Mg Tablet 5 Mg PO TID PRN Renvela (Sevelamer Carbonate) 800 Mg Tablet 800 Mg PO TIDWMEALS 30 Days Reported Fish Oil 1,000 Mg Softgel ([place]-3 Fatty Acids/Fish Oil) 1 Each Capsule 1 Cap PO DAILY 30 Days Omeprazole 40 Mg Capsule. 1 Cap PO DAILY Nataliep 10,000 Units Capsule (Lipase/Protease/Amylase) 1 Each Capsule. 3 Cap PO TIDWMEALS Doxazosin Mesylate 4 Mg Tablet 1 Tab PO DAILY Trazodone Hcl 100 Mg Tablet 1 Tab PO QHS Hydralazine Hcl 100 Mg Tablet 1 Tab PO TID Aspir 81 (Aspirin) 81 Mg Tablet. 1 Tab PO DAILY Allergies Allergies: Coded Allergies: morphine (Verified Allergy, Intermediate, Itching, 09/09/21) lisinopril (Verified Adverse Reaction, Intermediate, Dry Cough, 09/09/21) Dry Cough ROS PSYCHOLOGICAL ROS: No: Hallucinations Eyes: No Loss of vision HEENT: No: Epistaxis Respiratory: No: Hemoptysis, Shortness of breath Gastrointestinal: Yes Nausea, Yes Vomiting Genitourinary: No Hematuria Neurological: No Seizures Skin: No Rash Physical Exam General: Alert, Oriented X3 HEENT: Atraumatic Lungs: Clear to auscultation Heart: Regular rate Abdomen: Soft Extremities: No edema Neuro: Normal speech Psych/Mental Status: Mood NL Vitals VITALS Vital Signs Date Time Temp Pulse Resp B/P (MAP) Pulse Ox O2 Delivery O2 Flow Rate FiO2 09/10/21 10:58 97.4 89 19 203/94 (130) 98 Room Air 97.4 Labs Labs Laboratory Tests Test 09/09/21 21:10 09/10/21 02:15 09/10/21 04:00 09/10/21 08:36 White Blood Count 10.6 x10^3/uL (4.0-11.0) Red Blood Count 4.48 x10^6/uL (4.30-5.70) Hemoglobin 12.1 g/dL (13.0-17.5) Hematocrit 37.6 % (39.0-53.0) Mean Corpuscular Volume 84 fL (79-100) Mean Corpuscular Hemoglobin 27 pg (25-35) Mean Corpuscular Hemoglobin Concent 32 g/dL (31-37) Red Cell Distribution Width 17.3 % (11.5-14.5) Platelet Count 427 x10^3/uL (140-400) Neutrophils (%) (Auto) 85 % (31-73) Lymphocytes (%) (Auto) 10 % (24-48) Monocytes (%) (Auto) 5 % (0-9) Eosinophils (%) (Auto) 0 % (0-3) Basophils (%) (Auto) 1 % (0-3) Neutrophils # (Auto) 9.0 x10^3/uL (1.8-7.7) Lymphocytes # (Auto) 1.0 x10^3/uL (1.0-4.8) Monocytes # (Auto) 0.5 x10^3/uL (0.0-1.1) Eosinophils # (Auto) 0.0 x10^3/uL (0.0-0.7) Basophils # (Auto) 0.1 x10^3/uL (0.0-0.2) Sodium Level 139 mmol/L (136-145) Potassium Level 4.0 mmol/L (3.5-5.1) Chloride Level 95 mmol/L (98-107) Carbon Dioxide Level 28 mmol/L (21-32) Anion Gap 16 (6-14) Blood Urea Nitrogen 37 mg/dL (8-26) Creatinine 6.6 mg/dL (0.7-1.3) Estimated GFR (Cockcroft-Gault) 10.6 BUN/Creatinine Ratio 6 (6-20) Glucose Level 385 mg/dL (70-99) Calcium Level 8.5 mg/dL (8.5-10.1) Magnesium Level 1.7 mg/dL (1.8-2.4) Total Bilirubin 0.4 mg/dL (0.2-1.0) Aspartate Amino Transf (AST/SGOT) 7 U/L (15-37) Alanine Aminotransferase (ALT/SGPT) 14 U/L (16-63) Alkaline Phosphatase 128 U/L (46-116) Troponin I High Sensitivity 131 ng/L (4-75) 129 ng/L (4-75) TN-Cdk-C-Type Natriuretic Peptide 09833 pg/mL (0-124) Total Protein 7.0 g/dL (6.4-8.2) Albumin 2.9 g/dL (3.4-5.0) Albumin/Globulin Ratio 0.7 (1.0-1.7) Lipase 18 U/L (73-393) Glucose (Fingerstick) 269 mg/dL (70-99) 251 mg/dL (70-99) Test 09/10/21 11:30 2/20/22 12:10 Glucose (Fingerstick) 213 mg/dL (70-99) Sodium Level 138 mmol/L (136-145) Potassium Level 2.7 mmol/L (3.5-5.1) Chloride Level 97 mmol/L (98-107) Carbon Dioxide Level 30 mmol/L (21-32) Anion Gap 11 (6-14) Blood Urea Nitrogen 44 mg/dL (8-26) Creatinine 7.4 mg/dL (0.7-1.3) Estimated GFR (Cockcroft-Gault) 9.3 BUN/Creatinine Ratio 6 (6-20) Glucose Level 159 mg/dL (70-99) Calcium Level 7.6 mg/dL (8.5-10.1) Total Bilirubin 0.2 mg/dL (0.2-1.0) Aspartate Amino Transf (AST/SGOT) 10 U/L (15-37) Alanine Aminotransferase (ALT/SGPT) 10 U/L (16-63) Alkaline Phosphatase 99 U/L (46-116) Total Protein 5.7 g/dL (6.4-8.2) Albumin 2.2 g/dL (3.4-5.0) Albumin/Globulin Ratio 0.6 (1.0-1.7) Laboratory Tests Test 09/09/21 21:10 09/10/21 02:15 09/10/21 04:00 09/10/21 08:36 White Blood Count 10.6 x10^3/uL (4.0-11.0) Red Blood Count 4.48 x10^6/uL (4.30-5.70) Hemoglobin 12.1 g/dL (13.0-17.5) Hematocrit 37.6 % (39.0-53.0) Mean Corpuscular Volume 84 fL (79-100) Mean Corpuscular Hemoglobin 27 pg (25-35) Mean Corpuscular Hemoglobin Concent 32 g/dL (31-37) Red Cell Distribution Width 17.3 % (11.5-14.5) Platelet Count 427 x10^3/uL (140-400) Neutrophils (%) (Auto) 85 % (31-73) Lymphocytes (%) (Auto) 10 % (24-48) Monocytes (%) (Auto) 5 % (0-9) Eosinophils (%) (Auto) 0 % (0-3) Basophils (%) (Auto) 1 % (0-3) Neutrophils # (Auto) 9.0 x10^3/uL (1.8-7.7) Lymphocytes # (Auto) 1.0 x10^3/uL (1.0-4.8) Monocytes # (Auto) 0.5 x10^3/uL (0.0-1.1) Eosinophils # (Auto) 0.0 x10^3/uL (0.0-0.7) Basophils # (Auto) 0.1 x10^3/uL (0.0-0.2) Sodium Level 139 mmol/L (136-145) Potassium Level 4.0 mmol/L (3.5-5.1) Chloride Level 95 mmol/L (98-107) Carbon Dioxide Level 28 mmol/L (21-32) Anion Gap 16 (6-14) Blood Urea Nitrogen 37 mg/dL (8-26) Creatinine 6.6 mg/dL (0.7-1.3) Estimated GFR (Cockcroft-Gault) 10.6 BUN/Creatinine Ratio 6 (6-20) Glucose Level 385 mg/dL (70-99) Calcium Level 8.5 mg/dL (8.5-10.1) Magnesium Level 1.7 mg/dL (1.8-2.4) Total Bilirubin 0.4 mg/dL (0.2-1.0) Aspartate Amino Transf (AST/SGOT) 7 U/L (15-37) Alanine Aminotransferase (ALT/SGPT) 14 U/L (16-63) Alkaline Phosphatase 128 U/L (46-116) Troponin I High Sensitivity 131 ng/L (4-75) 129 ng/L (4-75) QT-Hgw-P-Type Natriuretic Peptide 70552 pg/mL (0-124) Total Protein 7.0 g/dL (6.4-8.2) Albumin 2.9 g/dL (3.4-5.0) Albumin/Globulin Ratio 0.7 (1.0-1.7) Lipase 18 U/L (73-393) Glucose (Fingerstick) 269 mg/dL (70-99) 251 mg/dL (70-99) Test 09/10/21 11:30 09/10/21 12:10 Glucose (Fingerstick) 213 mg/dL (70-99) Sodium Level 138 mmol/L (136-145) Potassium Level 2.7 mmol/L (3.5-5.1) Chloride Level 97 mmol/L (98-107) Carbon Dioxide Level 30 mmol/L (21-32) Anion Gap 11 (6-14) Blood Urea Nitrogen 44 mg/dL (8-26) Creatinine 7.4 mg/dL (0.7-1.3) Estimated GFR (Cockcroft-Gault) 9.3 BUN/Creatinine Ratio 6 (6-20) Glucose Level 159 mg/dL (70-99) Calcium Level 7.6 mg/dL (8.5-10.1) Total Bilirubin 0.2 mg/dL (0.2-1.0) Aspartate Amino Transf (AST/SGOT) 10 U/L (15-37) Alanine Aminotransferase (ALT/SGPT) 10 U/L (16-63) Alkaline Phosphatase 99 U/L (46-116) Total Protein 5.7 g/dL (6.4-8.2) Albumin 2.2 g/dL (3.4-5.0) Albumin/Globulin Ratio 0.6 (1.0-1.7) Images Images ECHOCARDIOGRAM <Conclusion> The left ventricular systolic function is normal and the ejection fraction is within normal range. The Ejection Fraction is 55-60%. There is normal LV segmental wall motion. DATE: 09/11/19 1033 Limited Echo <Conclusion> The left ventricular systolic function is normal and the ejection fraction is within normal range. The Ejection Fraction is 65-70%. There is normal LV segmental wall motion. There is a small pericardial effusion. DATE: 04/27/21 [id number] 0 STRESS TEST 12/01/20 - Procedure: [facility] STRESS TEST SUMMARY/OPINION: The study is probably normal. Global left ventricular ejection fraction is borderline and should be confirmed using other imaging techniques. Qualitatively global ejection fraction is normal. There are no definite perfusion abnormalities. High risk indicators are not noted. In aggregate the current study is low risk in regards to predicted annual cardiovascular mortality rate. HEART CATH CARDIAC CATHETERIZATION REPORT DATE: 01/12/2021 FINDINGS ON SELECTIVE CORONARY ANGIOGRAPHY: Left main: There is practically no left main coronary artery, it is a dual-ostial system, though they arise very close to each other, and possibly somewhat share a common ostium. Left anterior descending artery: The LAD is a large vessel that does reach the apex and wraps around it. The LAD has moderate disease in its gopupocc-qh-jpx portion with kidh-ve-igxlmgmb calcification. The worst area is about 30%. A large diagonal branch has no significant stenosis. Left circumflex artery: A medium-size vessel without significant stenosis. A high obtuse marginal is normal. A medium-size second obtuse marginal is jailed by a mid circumflex artery stent. The obtuse marginal has an ostial 60% stenosis, unchanged from 2015, at the time of the procedure. The stent in the circumflex artery is widely patent, and the circumflex artery culminates in a large obtuse marginal that is widely patent. Right coronary artery: The RCA is a large dominant vessel. It has no significant stenosis and gives rise to a large PLV and a large PDA, which also have no significant stenosis. FINAL IMPRESSION: Stable angiographic coronary artery findings from 6 years ago, with patent stent to the circumflex artery, patent RCA, and xrei-nm-thuvsosj disease of no more than 30% in the nnzmgwmg-iu-wjj LAD. Normal right-sided filling pressures. Elevated pulmonary capillary wedge pressure of 22. Increased pulmonary artery pressure with a mean of 29 mmHg, mostly secondary to increased pulmonary capillary wedge pressure. Normal cardiac index, which by thermodilution are 4 L/min per square meter. RECOMMENDATIONS: Medical management is recommended for coronary artery disease with strong advice to quit smoking. I would recommend certainly more aggressive hemodialysis to get rid of some extra fluid as the wedge pressure is elevated. The patient is cleared for his renal transplant from a cardiac standpoint. Assessment/Plan Assessment/Plan 1. Acute gastroenteritis: Continue supportive care. Gastroenterology team has been consulted. 2. Accelerated hypertension: Patient unable to keep oral medications down secondary to nausea/vomiting. Agree with clonidine patch and hydralazine as needed for now and resume home antihypertensives once he is able to tolerate them. 3. Non-STEMI most probably demand ischemia. Patient denied any chest pain and EKG without acute changes. 4. CAD s/p PCI/stent to the LCx; [facility] 01/09 showed patent LCx stent and no lesions needing intervention. Follows with Dr. Jahaira FOSTER 5. Chronic diastolic CHF; appears compensated. recent echo with preserved LV systolic function 6. Hyperlipidemia: Statins 7. ESRD on HD per nephrology team 8. Diabetes, II: Treat per IM 9. Hypokalemia, hypomagnesemia; replace Thank you for your consultation DIANE BERG MD Sep 10, 2021 12:56
[2021-09-10] MEDS: POTASSIUM CHLORIDE 10MEQ 100 ML IV SCH ×4 (13:00→15:55)
[2021-09-10] MEDS ORDERED: MAGNESIUM SULFATE 1GM 100 ML IV ONE (14:00)
--- NOTE | 2021-09-10 17:15 | NUR ---
Glucose checked at 1630 = 44. Pt given 250cc of D5 and drank 2 cups of OJ. Glucose rechecked at 1715 = 147.
--- NOTE | 2021-09-10 17:53 | CONS ---
DATE OF CONSULTATION: 09/10/2021 REQUESTING PHYSICIAN: Julissa Valadez MD. REASON FOR CONSULTATION: End-stage renal disease, hemodialysis dependent, Saturday, Saturday and Saturday. HISTORY OF PRESENT ILLNESS: This is a 56-year-old gentleman recently hospitalized with nausea, vomiting and discharged home, now is admitted in the setting of similar situation. The patient has a history of end-stage renal disease, in setting of diabetic nephropathy. He undergoes hemodialysis on a Saturday, Saturday, Saturday schedule. PAST MEDICAL HISTORY: Diabetes mellitus, end-stage renal disease, hemodialysis dependent, Saturday, Saturday and Saturday, anemia of chronic kidney disease, secondary hyperparathyroidism, renal disease, COVID-19 pneumonia in 04/2021, GE reflux disease, peripheral neuropathy, hyperlipidemia, coronary artery disease, status post stent placement, chronic pancreatitis due to alcoholism, COPD and asthma. ALLERGIES: LISINOPRIL, MORPHINE. MEDICATIONS: Reviewed per medication list. FAMILY HISTORY: Noncontributory. SOCIAL HISTORY: The patient resides with assistance. Smokes at least 1 pack of cigarettes per day for over 30 years. History of alcohol abuse, discontinued. Alcohol use more than 10 years ago. No drug use. REVIEW OF SYSTEMS: Other than nausea and vomiting, prompted admission, and generalized weakness, remainder of review of systems unremarkable. PHYSICAL EXAMINATION: GENERAL APPEARANCE: No acute distress. HEENT: Clear. NECK: No increased JVD. LUNGS: Clear. CARDIAC: Without S3 or rub. ABDOMEN: Soft and nontender. EXTREMITIES: Without edema. NEUROPSYCHIATRIC: Follows appropriately, cooperative. LABORATORY DATA: Hemoglobin on 12.1, hematocrit 37.6, white count 10.6. Sodium 138, potassium 2.7, chloride 97, CO2 is 30, BUN 44, creatinine 7.4, GFR 9.3. IMPRESSION: 1. End-stage renal disease secondary to diabetic nephropathy, hemodialysis dependent, Saturday, Saturday and Saturday. 2. Recurrent episodes of nausea and vomiting. RECOMMENDATIONS: 1. Ongoing dialysis Saturday, Saturday and Saturday. Hold Epogen due to the level of hemoglobin. 2. GI evaluation per Dr. Valadez. We will follow. JOVANNA DR: Arabella TID: [id number]
[2021-09-10] MEDS ORDERED: POTASSIUM CHLORIDE 10 MEQ TABLET.ER. PO ONE (18:00)
[2021-09-11 02:13] VITALS: BP 161/73
[2021-09-11 04:16] LABS: BASO % 0 % (0-3); EOS # 0.1 x10^3/uL (0.0-0.7); EOS % 1 % (0-3); HEMATOCRIT 32.6 % (39.0-53.0); HEMOGLOBIN 10.7 g/dL (13.0-17.5); LYMPH % 29 % (24-48); MEAN CORPUSCULAR HEMOGLOBIN 28 pg (25-35); MEAN CORPUSCULAR HGB CONC 33 g/dL (31-37); MEAN CORPUSCULAR VOLUME 84 fL (79-100); MONO # 0.7 x10^3/uL (0.0-1.1); MONO % 7 % (0-9); NEUT # 6.6 x10^3/uL (1.8-7.7); NEUT % 64 % (31-73); PLATELET COUNT 322 x10^3/uL (140-400); RED BLOOD COUNT 3.88 x10^6/uL (4.30-5.70); RED CELL DISTRIBUTION WIDTH 16.5 % (11.5-14.5); WHITE BLOOD COUNT 10.4 x10^3/uL (4.0-11.0)
[2021-09-11 04:32] LABS: ALBUMIN 2.2 g/dL (3.4-5.0); ALBUMIN/GLOBULIN RATIO 0.6 (1.0-1.7); CALCIUM 7.6 mg/dL (8.5-10.1); CREATININE 7.5 mg/dL (0.7-1.3); GFR 9.2; POTASSIUM 4.5 mmol/L (3.5-5.1); TOTAL BILIRUBIN 0.2 mg/dL (0.2-1.0); TOTAL PROTEIN 5.7 g/dL (6.4-8.2)
[2021-09-11] MEDS: PANTOPRAZOLE IV PUSH 40 MG VIAL. IVP SCH (06:03)
[2021-09-11 07:00] VITALS: BP 169/82
[2021-09-11] MEDS ORDERED: DIALYSIS PATIENT. MC PRN ×2 (07:45)
[2021-09-11] MEDS: INSULIN LISPRO 300 UNITS/3 ML VIAL. SQ SCH ×3 (08:00→17:00)
[2021-09-11] MEDS: LIPASE/PROTEAS/AMYLAS 10/32/42 CAPSULE.DR. PO SCH ×3 (08:00→17:16)
--- NOTE | 2021-09-11 08:42 | PDOC ---
IM PROGRESS NOTES- Subjective Subjective Vomiting and nausea are improving. No complaints of chest pains. Objective Vitals/I&O Vital Signs Date Time Temp Pulse Resp B/P (MAP) Pulse Ox O2 Delivery O2 Flow Rate FiO2 09/11/21 02:13 98.6 72 18 161/73 (102) 98 Nasal Cannula 4.0 98.6 I & O 09/10/21 09/10/21 09/11/21 15:00 23:00 07:00 Intake Total 350 ml 420 ml 0 ml Balance 350 ml 420 ml 0 ml Physical Exam Physical Exam General Appearance - alert and in no distress Chest - decreased breath sounds at bases Heart - S1 and S2 normal Abdomen - soft, non tender Neurological - alert and oriented Musculoskeletal - generalized weakness Extremities - no edema Labs Laboratory Tests Test 09/10/21 11:30 09/10/21 12:10 09/10/21 13:36 09/10/21 16:25 Glucose (Fingerstick) 213 mg/dL (70-99) H 82 mg/dL (70-99) 44 mg/dL (70-99) *L Sodium Level 138 mmol/L (136-145) Potassium Level 2.7 mmol/L (3.5-5.1) #*L Chloride Level 97 mmol/L (98-107) L Carbon Dioxide Level 30 mmol/L (21-32) Anion Gap 11 (6-14) Blood Urea Nitrogen 44 mg/dL (8-26) H Creatinine 7.4 mg/dL (0.7-1.3) H Estimated GFR (Cockcroft-Gault) 9.3 BUN/Creatinine Ratio 6 (6-20) Glucose Level 159 mg/dL (70-99) H Calcium Level 7.6 mg/dL (8.5-10.1) L Total Bilirubin 0.2 mg/dL (0.2-1.0) Aspartate Amino Transferase (AST) 10 U/L (15-37) L Alanine Aminotransferase (ALT) 10 U/L (16-63) L Alkaline Phosphatase 99 U/L (46-116) Total Protein 5.7 g/dL (6.4-8.2) L Albumin 2.2 g/dL (3.4-5.0) L Albumin/Globulin Ratio 0.6 (1.0-1.7) L Test 09/10/21 17:17 09/10/21 20:28 09/10/21 21:00 09/11/21 02:12 Glucose (Fingerstick) 147 mg/dL (70-99) H 287 mg/dL (70-99) H 198 mg/dL (70-99) H Potassium Level 5.1 mmol/L (3.5-5.1) # Test 09/11/21 03:20 09/11/21 07:34 White Blood Count 10.4 x10^3/uL (4.0-11.0) Red Blood Count 3.88 x10^6/uL (4.30-5.70) L Hemoglobin 10.7 g/dL (13.0-17.5) L Hematocrit 32.6 % (39.0-53.0) L Mean Corpuscular Volume 84 fL (79-100) Mean Corpuscular Hemoglobin 28 pg (25-35) Mean Corpuscular Hemoglobin Concent 33 g/dL (31-37) Red Cell Distribution Width 16.5 % (11.5-14.5) H Platelet Count 322 x10^3/uL (140-400) Neutrophils (%) (Auto) 64 % (31-73) Lymphocytes (%) (Auto) 29 % (24-48) Monocytes (%) (Auto) 7 % (0-9) Eosinophils (%) (Auto) 1 % (0-3) Basophils (%) (Auto) 0 % (0-3) Neutrophils # (Auto) 6.6 x10^3/uL (1.8-7.7) Lymphocytes # (Auto) 3.0 x10^3/uL (1.0-4.8) Monocytes # (Auto) 0.7 x10^3/uL (0.0-1.1) Eosinophils # (Auto) 0.1 x10^3/uL (0.0-0.7) Basophils # (Auto) 0.0 x10^3/uL (0.0-0.2) Sodium Level 131 mmol/L (136-145) L Potassium Level 4.5 mmol/L (3.5-5.1) Chloride Level 92 mmol/L (98-107) L Carbon Dioxide Level 27 mmol/L (21-32) Anion Gap 12 (6-14) Blood Urea Nitrogen 48 mg/dL (8-26) H Creatinine 7.5 mg/dL (0.7-1.3) H Estimated GFR (Cockcroft-Gault) 9.2 BUN/Creatinine Ratio 6 (6-20) Glucose Level 219 mg/dL (70-99) H Calcium Level 7.6 mg/dL (8.5-10.1) L Total Bilirubin 0.2 mg/dL (0.2-1.0) Aspartate Amino Transferase (AST) 12 U/L (15-37) L Alanine Aminotransferase (ALT) 8 U/L (16-63) L Alkaline Phosphatase 103 U/L (46-116) Total Protein 5.7 g/dL (6.4-8.2) L Albumin 2.2 g/dL (3.4-5.0) L Albumin/Globulin Ratio 0.6 (1.0-1.7) L Glucose (Fingerstick) 164 mg/dL (70-99) H Laboratory Tests 09/11/21 03:20 Laboratory Tests 09/10/21 12:10 09/10/21 21:00 09/11/21 03:20 Meds Current Medications Medications (Trade) Dose Ordered Sig/Ravinder Route PRN Reason Start Time Stop Time Status Last Admin Dose Admin Amylase/Lipase/ Protease (Zenpep 10,000) 3 cap TIDWMEALS PO 09/10/21 12:00 09/10/21 17:05 Clonidine HCl (Catapres Tts-2) 1 patch 1X ONCE TD 09/10/21 09:30 09/10/21 09:31 DC 09/10/21 10:31 Carvedilol (Coreg) 25 mg BIDWMEALS PO 09/10/21 11:00 09/10/21 17:06 Doxazosin Mesylate (Cardura) 4 mg DAILY PO 09/10/21 11:00 09/10/21 10:30 Isosorbide Mononitrate (Imdur) 30 mg DAILY PO 09/10/21 11:00 09/10/21 10:32 Potassium Chloride/Water 100 ml @ 100 mls/hr Q1H IV 09/10/21 13:00 09/10/21 16:59 DC 09/10/21 15:55 Magnesium Sulfate/ Dextrose 100 ml @ 100 mls/hr 1X ONCE IV 09/10/21 14:00 09/10/21 14:59 DC 09/10/21 13:45 Potassium Chloride (Klor-Con) 10 meq 1X ONCE PO 09/10/21 18:00 09/10/21 18:01 DC 09/10/21 17:59 Assessment Assessment 1. Acute gastroenteritis. 2. Recurrent vomiting may be due to motility disorder also. 3. Acute hypertensive crisis. 4. Elevated troponin may be due to demand ischemia, hypertensive crisis and also contributed by end-stage renal disease. 5. Elevated BNP, likely due to hypertensive crisis, as well as end-stage renal disease. 6. 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 7. End-stage renal disease, on hemodialysis. 8. Chronic hypoxic respiratory failure, on oxygen by nasal cannula 2 liters per minute. 9. Chronic obstructive pulmonary disease. 10. Hypertensive crisis. 11. Gastroesophageal reflux disease. 12. Coronary artery disease with history of stent placement. 13. Mixed hyperlipidemia. 14. Chronic pancreatitis. 15. Anemia. 16. Physical deconditioning. 17. Osteoarthritis 18. Chronic back pain. 19. Cervical spinal stenosis and cervical radiculopathy with several neck surgeries. PLAN: 1. Persistent nausea and vomiting, likely due to acute gastroenteritis. Possible gastroparesis. Consult Dr. Santo for GI evaluation and management. I will start him on clear liquid diet to see if he tolerates and advance diet as tolerated. I will give him IV fluids. Continue p.r.n. Zofran and Compazine. Hold most of his medications. Start IV Protonix. Gastric emptying study. 2. Diabetes mellitus, currently with hyperglycemia. Continue sliding scale insulin. Start Lantus 6 units subcu daily. 3. End-stage renal disease, on hemodialysis. Consult Dr. Riddle for nephrology evaluation and management. 4. Hypertensive crisis, start him on Catapres patch. IV hydralazine p.r.n. For details, please refer to the orders. Hold most of his oral medications as he is not able to tolerate them. Consult Dr. Rome for Cardiology evaluation and management. 5. Elevated troponin, likely due to demand ischemia as well as hypertensive crisis, as well as end-stage renal disease. Consult tailer out. Elevated BNP, monitor. 6. COPD. Continue oxygen by nasal cannula. For details, please refer to the orders. Prognosis of this patient is very poor due to his multiple medical problems. Plan Plan For more details regarding further plans, please refer to the orders. Justifications for Admission Other Justification TRINA ALDANA MD Sep 11, 2021 08:42
--- NOTE | 2021-09-11 11:16 | PDOC ---
DATE OF SERVICE DATE: 09/11/21 TIME: 11:15 SUBJECTIVE ROS Seen during dialysis. States N/V better OBJECTIVE Vital Signs Vital Signs Date Time Temp Pulse Resp B/P (MAP) Pulse Ox O2 Delivery O2 Flow Rate FiO2 09/11/21 08:00 Room Air 4.0 09/11/21 07:00 97.8 66 18 169/82 (111) 99 97.8 I & 0 Intake and Output 09/11/21 07:00 Intake Total 770 ml Balance 770 ml Intake Oral 770 ml PHYSICAL EXAM Physical Exam GENERAL: NAD HEENT: Normocephalic, atraumatic. Anicteric.On chronic o2 by NC NECK: Supple LUNGS: Clear bilaterally. decraesed at bases HEART: S1, S2. ABDOMEN: Soft, nontender, nondistended, no rebound or guarding. EXTREMITIES: No edema, no cyanosis. DERMATOLOGIC: Warm, dry, no generalized rash. NEUROLOGIC: Alert and oriented x 3, grossly no focal deficit PSYCHIATRIC: Calm and cooperative. No ruth, No CVA or SP tenderness DIAGNOSIS/ASSESSMENT Assessment & Plan ESRD on HD MWF, on HD since 2019 ,seen during dialysis, tolerating well . Continue as ordered. Smooth PIRES Undergoing Renal Tx eval at [facility] Nausea/Vomiting POA- Acute gastroenteritis per Primary HypoNatremia- Mild. History of severe Apr 2021 Na to 118 . Na improved since dced Mirtazipine Accelerated hypertension Antihypertensives, Renal Doppler in Aug 2019, No e/o JOSELYN . On multiple meds including . Card manages Anemia - MOnitor Diabetes mellitus type 2. History of prostate cancer.s/p Radiation treatment Hx of COVID 19 Pneumonia HX of CAD and NH COMMENT/RELEVANT DATA Meds Current Medications Medications (Trade) Dose Ordered Sig/Ravinder Start Time Stop Time Status Last Admin Dose Admin Acetaminophen (Tylenol) 650 mg PRN Q6HRS PRN 09/10/21 09:30 Amylase/Lipase/ Protease (Zenpep 10,000) 3 cap TIDWMEALS 09/10/21 12:00 09/10/21 17:05 3 CAP Carvedilol (Coreg) 25 mg BIDWMEALS 09/10/21 11:00 09/10/21 17:06 25 MG Clonidine HCl (Catapres Tts-2) 1 patch 1X ONCE 09/10/21 09:30 09/10/21 09:31 DC 09/10/21 10:31 1 PATCH Dextrose (Dextrose 50%-Water Syringe) 12.5 gm PRN Q15MIN PRN 09/09/21 22:00 Dextrose (Iv Dextrose 5%) 250 ml PRN Q15MIN PRN 09/09/21 22:00 Dextrose/Sodium Chloride 1,000 ml @ 60 mls/hr 1X ONCE 09/09/21 22:00 09/10/21 14:39 DC 09/10/21 04:57 60 MLS/HR Doxazosin Mesylate (Cardura) 4 mg DAILY 09/10/21 11:00 09/10/21 10:30 4 MG Fentanyl Citrate (Fentanyl 2ml Vial) 50 mcg PRN Q1HR PRN 09/09/21 22:00 09/10/21 21:59 DC 09/10/21 04:56 50 MCG Hydralazine HCl (Apresoline Inj) 10 mg PRN Q4HRS PRN 09/09/21 22:00 09/10/21 01:32 10 MG Info (PHARMACY MONITORING -- do not chart) 1 each PRN DAILY PRN 09/11/21 07:45 UNV Insulin Glargine (Lantus Syringe) 6 unit QHS 09/11/21 21:00 Insulin Human Lispro (HumaLOG) 0-7 UNITS TIDWMEALS 09/10/21 08:00 09/10/21 10:23 6 UNITS Insulin Human Regular (HumuLIN R VIAL) 6 unit 1X ONCE 09/09/21 22:15 09/09/21 22:16 DC 09/09/21 23:35 6 UNIT Isosorbide Mononitrate (Imdur) 30 mg DAILY 09/10/21 11:00 09/10/21 10:32 30 MG Labetalol HCl (Normodyne Iv Push) 10 mg 1X ONCE 09/09/21 22:15 09/09/21 22:16 DC 09/09/21 23:42 10 MG Magnesium Sulfate/ Dextrose 100 ml @ 100 mls/hr 1X ONCE 09/10/21 14:00 09/10/21 14:59 DC 09/10/21 13:45 100 MLS/HR Ondansetron HCl (Zofran) 4 mg Q6HRS PRN 09/10/21 09:30 Oxycodone/ Acetaminophen (Percocet 7.5/ 325) 1 tab PRN Q6HRS PRN 09/10/21 09:30 Pantoprazole Sodium (PROTONIX VIAL for IV PUSH) 40 mg DAILYAC 09/10/21 07:30 09/11/21 06:03 40 MG Potassium Chloride/Water 100 ml @ 100 mls/hr Q1H 09/10/21 13:00 09/10/21 16:59 DC 09/10/21 15:55 100 MLS/HR Potassium Chloride (Klor-Con) 10 meq 1X ONCE 09/10/21 18:00 09/10/21 18:01 DC 09/10/21 17:59 10 MEQ Prochlorperazine Edisylate (Compazine) 10 mg 1X ONCE 09/09/21 22:15 09/09/21 22:16 DC 09/09/21 23:43 10 MG Lab Laboratory Tests Test 09/10/21 11:30 09/10/21 12:10 09/10/21 13:36 09/10/21 16:25 Glucose (Fingerstick) 213 mg/dL (70-99) 82 mg/dL (70-99) 44 mg/dL (70-99) Sodium Level 138 mmol/L (136-145) Potassium Level 2.7 mmol/L (3.5-5.1) Chloride Level 97 mmol/L (98-107) Carbon Dioxide Level 30 mmol/L (21-32) Anion Gap 11 (6-14) Blood Urea Nitrogen 44 mg/dL (8-26) Creatinine 7.4 mg/dL (0.7-1.3) Estimated GFR (Cockcroft-Gault) 9.3 BUN/Creatinine Ratio 6 (6-20) Glucose Level 159 mg/dL (70-99) Calcium Level 7.6 mg/dL (8.5-10.1) Total Bilirubin 0.2 mg/dL (0.2-1.0) Aspartate Amino Transf (AST/SGOT) 10 U/L (15-37) Alanine Aminotransferase (ALT/SGPT) 10 U/L (16-63) Alkaline Phosphatase 99 U/L (46-116) Total Protein 5.7 g/dL (6.4-8.2) Albumin 2.2 g/dL (3.4-5.0) Albumin/Globulin Ratio 0.6 (1.0-1.7) Test 09/10/21 17:17 09/10/21 20:28 09/10/21 21:00 09/11/21 02:12 Glucose (Fingerstick) 147 mg/dL (70-99) 287 mg/dL (70-99) 198 mg/dL (70-99) Potassium Level 5.1 mmol/L (3.5-5.1) Test 09/11/21 03:20 09/11/21 07:34 White Blood Count 10.4 x10^3/uL (4.0-11.0) Red Blood Count 3.88 x10^6/uL (4.30-5.70) Hemoglobin 10.7 g/dL (13.0-17.5) Hematocrit 32.6 % (39.0-53.0) Mean Corpuscular Volume 84 fL (79-100) Mean Corpuscular Hemoglobin 28 pg (25-35) Mean Corpuscular Hemoglobin Concent 33 g/dL (31-37) Red Cell Distribution Width 16.5 % (11.5-14.5) Platelet Count 322 x10^3/uL (140-400) Neutrophils (%) (Auto) 64 % (31-73) Lymphocytes (%) (Auto) 29 % (24-48) Monocytes (%) (Auto) 7 % (0-9) Eosinophils (%) (Auto) 1 % (0-3) Basophils (%) (Auto) 0 % (0-3) Neutrophils # (Auto) 6.6 x10^3/uL (1.8-7.7) Lymphocytes # (Auto) 3.0 x10^3/uL (1.0-4.8) Monocytes # (Auto) 0.7 x10^3/uL (0.0-1.1) Eosinophils # (Auto) 0.1 x10^3/uL (0.0-0.7) Basophils # (Auto) 0.0 x10^3/uL (0.0-0.2) Sodium Level 131 mmol/L (136-145) Potassium Level 4.5 mmol/L (3.5-5.1) Chloride Level 92 mmol/L (98-107) Carbon Dioxide Level 27 mmol/L (21-32) Anion Gap 12 (6-14) Blood Urea Nitrogen 48 mg/dL (8-26) Creatinine 7.5 mg/dL (0.7-1.3) Estimated GFR (Cockcroft-Gault) 9.2 BUN/Creatinine Ratio 6 (6-20) Glucose Level 219 mg/dL (70-99) Calcium Level 7.6 mg/dL (8.5-10.1) Total Bilirubin 0.2 mg/dL (0.2-1.0) Aspartate Amino Transf (AST/SGOT) 12 U/L (15-37) Alanine Aminotransferase (ALT/SGPT) 8 U/L (16-63) Alkaline Phosphatase 103 U/L (46-116) Total Protein 5.7 g/dL (6.4-8.2) Albumin 2.2 g/dL (3.4-5.0) Albumin/Globulin Ratio 0.6 (1.0-1.7) Glucose (Fingerstick) 164 mg/dL (70-99) Results All relevant outside records, renal labs, imaging studies, telemetry/EKG's were reviewed. Justicifation of Admission Dx: Justifications for Admission: Justification of Admission Dx: N/A CARLO CHAUHAN MD Sep 11, 2021 11:16
--- NOTE | 2021-09-11 11:22 | PDOC ---
PRESTON CALABRESE BACK SEWER 09/11/21 1122: CARDIO Progress Notes Date and Time Date of Service 09/11/21 Time of Evaluation 1150 Subjective Subjective: No Chest Pain, No shortness of breath, No Palpitations, No Dizziness Vitals Vitals Vital Signs Date Time Temp Pulse Resp B/P (MAP) Pulse Ox O2 Delivery O2 Flow Rate FiO2 09/11/21 08:00 Room Air 4.0 09/11/21 07:00 97.8 66 18 169/82 (111) 99 97.8 Weight Weight [ ] Input and Output Intake and Output Intake and Output 09/11/21 07:00 Intake Total 770 ml Balance 770 ml Intake Oral 770 ml Laboratory Labs Laboratory Tests Test 09/10/21 11:30 09/10/21 12:10 09/10/21 13:36 09/10/21 16:25 Glucose (Fingerstick) 213 mg/dL (70-99) 82 mg/dL (70-99) 44 mg/dL (70-99) Sodium Level 138 mmol/L (136-145) Potassium Level 2.7 mmol/L (3.5-5.1) Chloride Level 97 mmol/L (98-107) Carbon Dioxide Level 30 mmol/L (21-32) Anion Gap 11 (6-14) Blood Urea Nitrogen 44 mg/dL (8-26) Creatinine 7.4 mg/dL (0.7-1.3) Estimated GFR (Cockcroft-Gault) 9.3 BUN/Creatinine Ratio 6 (6-20) Glucose Level 159 mg/dL (70-99) Calcium Level 7.6 mg/dL (8.5-10.1) Total Bilirubin 0.2 mg/dL (0.2-1.0) Aspartate Amino Transf (AST/SGOT) 10 U/L (15-37) Alanine Aminotransferase (ALT/SGPT) 10 U/L (16-63) Alkaline Phosphatase 99 U/L (46-116) Total Protein 5.7 g/dL (6.4-8.2) Albumin 2.2 g/dL (3.4-5.0) Albumin/Globulin Ratio 0.6 (1.0-1.7) Test 09/10/21 17:17 09/10/21 20:28 09/10/21 21:00 09/11/21 02:12 Glucose (Fingerstick) 147 mg/dL (70-99) 287 mg/dL (70-99) 198 mg/dL (70-99) Potassium Level 5.1 mmol/L (3.5-5.1) Test 09/11/21 03:20 09/11/21 07:34 White Blood Count 10.4 x10^3/uL (4.0-11.0) Red Blood Count 3.88 x10^6/uL (4.30-5.70) Hemoglobin 10.7 g/dL (13.0-17.5) Hematocrit 32.6 % (39.0-53.0) Mean Corpuscular Volume 84 fL (79-100) Mean Corpuscular Hemoglobin 28 pg (25-35) Mean Corpuscular Hemoglobin Concent 33 g/dL (31-37) Red Cell Distribution Width 16.5 % (11.5-14.5) Platelet Count 322 x10^3/uL (140-400) Neutrophils (%) (Auto) 64 % (31-73) Lymphocytes (%) (Auto) 29 % (24-48) Monocytes (%) (Auto) 7 % (0-9) Eosinophils (%) (Auto) 1 % (0-3) Basophils (%) (Auto) 0 % (0-3) Neutrophils # (Auto) 6.6 x10^3/uL (1.8-7.7) Lymphocytes # (Auto) 3.0 x10^3/uL (1.0-4.8) Monocytes # (Auto) 0.7 x10^3/uL (0.0-1.1) Eosinophils # (Auto) 0.1 x10^3/uL (0.0-0.7) Basophils # (Auto) 0.0 x10^3/uL (0.0-0.2) Sodium Level 131 mmol/L (136-145) Potassium Level 4.5 mmol/L (3.5-5.1) Chloride Level 92 mmol/L (98-107) Carbon Dioxide Level 27 mmol/L (21-32) Anion Gap 12 (6-14) Blood Urea Nitrogen 48 mg/dL (8-26) Creatinine 7.5 mg/dL (0.7-1.3) Estimated GFR (Cockcroft-Gault) 9.2 BUN/Creatinine Ratio 6 (6-20) Glucose Level 219 mg/dL (70-99) Calcium Level 7.6 mg/dL (8.5-10.1) Total Bilirubin 0.2 mg/dL (0.2-1.0) Aspartate Amino Transf (AST/SGOT) 12 U/L (15-37) Alanine Aminotransferase (ALT/SGPT) 8 U/L (16-63) Alkaline Phosphatase 103 U/L (46-116) Total Protein 5.7 g/dL (6.4-8.2) Albumin 2.2 g/dL (3.4-5.0) Albumin/Globulin Ratio 0.6 (1.0-1.7) Glucose (Fingerstick) 164 mg/dL (70-99) Physical Exam HEENT: Neck Supple W Full Motion Chest: Symmetric LUNGS: Clear to Auscultation Heart: RRR Abdomen: Soft N/T Extremities: No Edema Neurology: alert, oriented, follow commands Assessment Assessment 1. Nausea/vomiting, gastroparesis; resolved. plans for GES 2. Accelerated hypertension: Patient unable to keep oral medications down secondary to nausea/vomiting. Medications resumed- BP remains elevated 3. Non-STEMI; trop peak 131. most probably type II, demand ischemia. Patient denied any chest pain and EKG without acute changes. 4. CAD s/p PCI/stent to the LCx; [facility] 01/09 showed patent LCx stent and no lesions needing intervention. Follows with MACDr. Campo 5. Chronic diastolic CHF; appears compensated. recent echo with preserved LV systolic function 6. Hyperlipidemia: Statins 7. ESRD on HD 8. Diabetes, II 9. Hypokalemia, hypomagnesemia; replaced Recommendations Secondary prevention measures Increase Imdur Fluid offloading via HD Outpatient event monitor and ischemic evaluation. Patient is to get this conducted through his primary wood craftsman, Dr. Campo Justicifation of Admission Dx: Justifications for Admission: Justification of Admission Dx: N/A PETRA TELLEZ MD 09/11/212126: CARDIO Progress Notes Plan Plan The patient was seen and interviewed as well as examined at the bedside. The chart was reviewed. The case was discussed. Agree with the plan of care. PRESTON CALABRESE APRN Sep 11, 2021 11:22 PETRA TELLEZ MD Sep 11, 2021 21:27
[2021-09-11] MEDS: CARVEDILOL 12.5 MG TABLET. PO SCH ×2 (12:32→17:17)
[2021-09-11] MEDS: ISOSORBIDE MONONITRATE ER 30 MG TAB.ER.24H PO SCH (12:34)
[2021-09-11] MEDS: DOXAZOSIN MESYLATE 4 MG TABLET. PO SCH (12:34)
--- NOTE | 2021-09-11 12:42 | PDOC ---
Date of Service: DATE: 09/11/21 TIME: 12:33 Subjective: Subjective: Denies ongoing n/v and hiccups - tolerated regular diet last night, not sure why given clears today. Symptoms began on Saturday after missing HD on Saturday. Takes Zenpep TID and omeprazole BID at home. Objective: Vital Signs: Vital Signs Date Time Temp Pulse Resp B/P (MAP) Pulse Ox O2 Delivery O2 Flow Rate FiO2 09/11/21 08:00 Room Air 4.0 09/11/21 07:00 97.8 66 18 169/82 (111) 99 97.8 Labs: Laboratory Tests Test 09/10/21 13:36 09/10/21 16:25 09/10/21 17:17 09/10/21 20:28 Glucose (Fingerstick) 82 mg/dL 44 mg/dL 147 mg/dL 287 mg/dL Test 09/10/21 21:00 09/11/21 02:12 09/11/21 03:20 09/11/21 07:34 Potassium Level 5.1 mmol/L 4.5 mmol/L Glucose (Fingerstick) 198 mg/dL 164 mg/dL White Blood Count 10.4 x10^3/uL Red Blood Count 3.88 x10^6/uL Hemoglobin 10.7 g/dL Hematocrit 32.6 % Mean Corpuscular Volume 84 fL Mean Corpuscular Hemoglobin 28 pg Mean Corpuscular Hemoglobin Concent 33 g/dL Red Cell Distribution Width 16.5 % Platelet Count 322 x10^3/uL Neutrophils (%) (Auto) 64 % Lymphocytes (%) (Auto) 29 % Monocytes (%) (Auto) 7 % Eosinophils (%) (Auto) 1 % Basophils (%) (Auto) 0 % Neutrophils # (Auto) 6.6 x10^3/uL Lymphocytes # (Auto) 3.0 x10^3/uL Monocytes # (Auto) 0.7 x10^3/uL Eosinophils # (Auto) 0.1 x10^3/uL Basophils # (Auto) 0.0 x10^3/uL Sodium Level 131 mmol/L Chloride Level 92 mmol/L Carbon Dioxide Level 27 mmol/L Anion Gap 12 Blood Urea Nitrogen 48 mg/dL Creatinine 7.5 mg/dL Estimated GFR (Cockcroft-Gault) 9.2 BUN/Creatinine Ratio 6 Glucose Level 219 mg/dL Calcium Level 7.6 mg/dL Total Bilirubin 0.2 mg/dL Aspartate Amino Transf (AST/SGOT) 12 U/L Alanine Aminotransferase (ALT/SGPT) 8 U/L Alkaline Phosphatase 103 U/L Total Protein 5.7 g/dL Albumin 2.2 g/dL Albumin/Globulin Ratio 0.6 Hepatitis B Surface Antigen Nonreactive PE: GEN: NAD LUNGS: CTAB HEART: RRR ABD: S/ND/NT NEURO/PSYCH: A & O 3 A/P: N/v, hiccups - resolved HTN, ESRD on HD, DM ACD GERD CRC screen - colonoscopy 2016 @ [facility] w/ hyperplastic polyp Diverticulosis S/p cholecystectomy Chronic pancreatitis, h/o pseudocyst/drainage H/o alcohol abuse - sober x 15 years COVID negative -- Okay for regular diet per GI, particularly since tolerated this last night. GES ordered for today, rescheduled for tomorrow per staff. If tolerating PO, could consider pursuing this as outpt. Change to PO PPI. Justicifation of Admission Dx: Justifications for Admission: Justification of Admission Dx: N/A KIMMY MARAVILLA Sep 11, 2021 12:42
--- NOTE | 2021-09-11 13:24 | NUR ---
SS following for discharge planning. SS reviewed pt chart and discussed with pt RN. Pt is from home and is currently requiring oxygen at four liters nasal canula. COVID19 negative. GI, Cardiology, and Nephrology following. Gastric Emptying Study scheduled for tomorrow. Pt has outpatient hemodialysis at [facility], ; fax [phone], Saturday, Saturday, and Saturday. SS will continue to follow for discharge planning.
[2021-09-11 15:00] VITALS: BP 163/71
[2021-09-11] MEDS ORDERED: ISOSORBIDE MONONITRATE ER 30 MG TAB.ER.24H PO ONE (15:00)
[2021-09-11] MEDS: PANTOPRAZOLE 40 MG TABLET.DR. PO SCH (15:11)
[2021-09-11] MEDS ORDERED: INSULIN LISPRO 300 UNITS/3 ML VIAL. SQ ONE (17:15)
[2021-09-11] MEDS: INSULIN GLARGINE SYRINGE. SQ SCH (17:19)
[2021-09-11 19:00] VITALS: BP 140/65
[2021-09-11] MEDS ORDERED: INSULIN GLARGINE SYRINGE. SQ SCH (21:00)
[2021-09-11 23:00] VITALS: BP 146/67
[2021-09-11] MEDS ORDERED: TRAZ150T49 PO (23:38)
[2021-09-12 03:00] VITALS: BP 149/86
--- NOTE | 2021-09-12 06:29 | NUR ---
BLOOD GLUCOSE 09/11/21 1640 WAS 567. 1700 12 UNITS OF LANTUS GIVEN. 2019 BS IS 59 2 JUICES GIVEN. AT 0545 BS IS [address] ALDANA'S ANSWERING SERVICE. STARTED D5 AT 125/HR. DISCUSSED Lane MEIER IN PHARMACY [facility]. PT IS DIALYSIS NO R ARM ACTIVITY DUE TO DIALYSIS SHUNT. IV #22 IS IN RIGHT FOOT BY KE. PHARMACY HAD A D50 SYRINGE IV PUSH. WILL REPAGE AND RECHECK BS. PT ISNT SYMPTOMATIC. BUT UPSET THAT POSSIBLY MIGHT NEED ANOTHER IV PLACED RECHECKED BS 147. LCRN
[2021-09-12 07:00] VITALS: BP 137/63
[2021-09-12] MEDS: INSULIN LISPRO 300 UNITS/3 ML VIAL. SQ SCH (08:00)
[2021-09-12 08:43] VITALS: BP 137/63
[2021-09-12] MEDS: PANTOPRAZOLE 40 MG TABLET.DR. PO SCH (08:43)
[2021-09-12] MEDS: DOXAZOSIN MESYLATE 4 MG TABLET. PO SCH (08:43)
[2021-09-12] MEDS: CARVEDILOL 12.5 MG TABLET. PO SCH (08:43)
[2021-09-12] MEDS ORDERED: ISOSORBIDE MONONITRATE ER 30 MG TAB.ER.24H PO SCH (09:00)
[2021-09-12] MEDS: INSULIN GLARGINE SYRINGE. SQ SCH (09:00)
[2021-09-12] MEDS: LIPASE/PROTEAS/AMYLAS 10/32/42 CAPSULE.DR. PO SCH (09:22)
[2021-09-12] MEDS ORDERED: ONDA4TAB12 PO (10:34)
--- NOTE | 2021-09-12 10:37 | DISCH ---
DISCHARGE INSTRUCTIONS Condition on Discharge Condition on Discharge: Stable Activity After Discharge Activity Instructions for Disc: No restrictions, Resume previous activity, Activity as tolerated Weight Bearing Status after Di: No restrictions, Full weight bearing, As tolerated Diet after Discharge Diet after Discharge: Cardiac, Renal Dialysis, Diabetic No Calorie Level Diet Texture: Regular Liquid Texture: Thin Liquid Swallowing Supervision: None needed Wound Incision Care Wound/Incision Care: No wound care needed Checks after Discharge Checks after discharge: Check blood press - daily, Check blood sugar, ac/hs, Check your Temp as needed, Weigh Yourself Daily DC Comment: Hemodialysis Contacting the DRPaige after DC Call your doctor for: Concerns you may have Follow-Up Follow up with: Nnamdi Aldana in 5 days Follow Up With: Treatment/Equipment after DC Adaptive Equipment Issued: None Discharge Respiratory Equipmen: Oxygen (4 lit/min) TRINA ALDANA MD Sep 12, 2021 10:37
--- NOTE | 2021-09-12 10:53 | PDOC ---
Date of Service: DATE: 09/12/21 TIME: 10:51 Subjective: Subjective: No complaints. Tolerating diet. Objective: Objective: D/w nurse - hyperglycemia last evening, hypoglycemia overnight - says pt declined GES, possible DC today. Vital Signs: Vital Signs Date Time Temp Pulse Resp B/P (MAP) Pulse Ox O2 Delivery O2 Flow Rate FiO2 09/12/21 08:43 87 149/86 09/12/21 08:00 Room Air 4.0 09/12/21 07:00 97.7 16 89 97.7 Labs: Laboratory Tests Test 09/11/21 12:39 09/11/21 16:40 09/11/21 16:41 09/11/21 20:28 Glucose (Fingerstick) 204 mg/dL 564 mg/dL 567 mg/dL 59 mg/dL Test 09/12/21 05:45 09/12/21 06:38 09/12/21 10:48 Glucose (Fingerstick) 37 mg/dL 148 mg/dL 86 mg/dL PE: GEN: NAD - was asleep LUNGS: CTAB HEART: RRR ABD: NABS, S/ND/NT NEURO/PSYCH: A & O 3 A/P: N/v, hiccups - resolved HTN, ESRD on HD, DM ACD, GERD, chronic pancreatitis -- DC per primary. Consider outpt GES. Justicifation of Admission Dx: Justifications for Admission: Justification of Admission Dx: N/A KIMMY MARAVILLA Sep 12, 2021 10:53
--- NOTE | 2021-09-12 10:57 | PDOC3 ---
IM DISCHARGE SUMMARY Date of Admission Date of Admission Date of Admission: Sep 09, 2021 at 22:25 Date of Discharge Date of Discharge September 12, 2021 Primary Diagnosis Primary Diagnosis 1. Acute gastroenteritis. 2. Recurrent vomiting may be due to motility disorder also. 3. Acute hypertensive crisis. 4. Elevated troponin may be due to demand ischemia, hypertensive crisis and also contributed by end-stage renal disease. 5. Elevated BNP, likely due to hypertensive crisis, as well as end-stage renal disease. 6. 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 7. End-stage renal disease, on hemodialysis. 8. Chronic hypoxic respiratory failure, on oxygen by nasal cannula 2 liters per minute. 9. Chronic obstructive pulmonary disease. 10. Hypertensive crisis. 11. Gastroesophageal reflux disease. 12. Coronary artery disease with history of stent placement. 13. Mixed hyperlipidemia. 14. Chronic pancreatitis. 15. Anemia. 16. Physical deconditioning. 17. Osteoarthritis 18. Chronic back pain. 19. Cervical spinal stenosis and cervical radiculopathy with several neck surgeries. Consults Consults Giles Santo MD; Kp Riddle MD; Nicolas Rome MD Labs Labs Laboratory Tests Test 09/11/21 12:39 09/11/21 16:40 09/11/21 16:41 09/11/21 20:28 Glucose (Fingerstick) 204 mg/dL (70-99) H 564 mg/dL (70-99) *H 567 mg/dL (70-99) *H 59 mg/dL (70-99) L Test 09/12/21 05:45 09/12/21 06:38 09/12/21 10:48 Glucose (Fingerstick) 37 mg/dL (70-99) *L 148 mg/dL (70-99) H 86 mg/dL (70-99) Brief hospital course Brief hospital course This is a 56-year-old male who has a history of end-stage renal disease, on hemodialysis with diabetes mellitus with diabetic nephropathy, neuropathy, COPD, on oxygen by nasal cannula 2 liters per minute for chronic respiratory failure, gastroesophageal reflux disease and hypertension with recurrent hypertensive crisis, was just admitted here on 09/06 because of severe hypoglycemia, hypokalemia, chest pain and vomiting. During the stay in the hospital, myocardial infarction was ruled out. Potassium was corrected. The patient received hemodialysis. His blood pressure was better controlled. He did not have any nausea and vomiting and was discharged home on . However, the patient states that after he went home, he started having nausea and vomiting and has not been able to keep anything down, so he call me back yesterday evening and has been readmitted this time for nausea and vomiting. In the Emergency Room, chest x-ray was unremarkable. His blood pressure was extremely high at 245/105 and 233/109. Because of the persistent nausea and vomiting, inability to keep anything down and hypertensive crisis, the patient was admitted for further evaluation and management. For more details regarding the past history, family history, social history, surgical history and other details, please refer to the H&P. 1. Persistent nausea and vomiting, likely due to acute gastroenteritis. Possible gastroparesis. Consult Dr. Santo for GI evaluation and management. I will start him on clear liquid diet to see if he tolerates and advance diet as tolerated. I will give him IV fluids. Continue p.r.n. Zofran and Compazine. Hold most of his medications. Start IV Protonix. Gastric emptying study. 2. Diabetes mellitus, currently with hyperglycemia. Continue sliding scale insulin. Yesterday patient's blood sugar went up to 567. Subsequently he r eceived insulin but last night he did not eat and he had a gastric emptying study scheduled this morning. However he decided not to do the gastric emptying study. Blood sugar dropped to 37. Hypoglycemia was treated. Blood sugar is now 86. He is eating well this morning. 3. End-stage renal disease, on hemodialysis. Consult Dr. Riddle for nephrology evaluation and management. 4. Hypertensive crisis, start him on Catapres patch. IV hydralazine p.r.n. For details, please refer to the orders. Hold most of his oral medications as he is not able to tolerate them. Consult Dr. Rome for Cardiology evaluation and management. Blood pressure is better controlled. Change back to oral clonidine. 5. Elevated troponin, likely due to demand ischemia as well as hypertensive crisis, as well as end-stage renal disease. Consult travel cota. Elevated BNP, monitor. Follow-up with the travel cota as outpatient. 6. COPD. Continue oxygen by nasal cannula. Clinically improving. Okay to discharge home today. I advised the patient to take all his blood pressure medications and including amlodipine and Imdur regularly. Order Zofran ODT for nausea as needed. Consider gastric emptying study as outpatient for possible gastroparesis if patient is agreeable. See me in the office in 1 week. Restart Lantus 12 units subcu daily from tomorrow. Continue his home sliding scale insulin. Hold insulin if glucose less than 100 or if he does not eat. Call me if any problems. Long-term as well as short-term prognosis of this patient is very poor due to his multiple medical problems and noncompliance. Medications Medications reviewed and reconciled for discharge. Home Meds Active Scripts Ondansetron (ONDANSETRON ODT) 4 Mg Tab.rapdis, 1 TAB PO PRN Q6-8HRS PRN for NAUSEA, #16 TAB Prov:TRINA ALDANA MD 09/12/21 Isosorbide Mononitrate (ISOSORBIDE MONONITRATE ER) 30 Mg Tab.er.24h, 1 TAB PO DAILY for blood pressure for 30 Days, #30 TAB 2 Refills Prov:PRESTON CALABRESE APRN 09/07/21 Clonidine Hcl (CLONIDINE HCL) 0.1 Mg Tablet, 0.1 MG PO TID for HTN for 30 Days, #90 TAB Prov:TRINA ALDANA MD 09/07/21 Insulin Lispro (Admelog) 100 Unit/1 Ml Vial, 0 UNITS SQ TIDBFRMEAL for DM for 30 Days, #1 EACH Use sliding scale at home. Prov:TRINA ALDANA MD 09/07/21 Amlodipine Besylate (AMLODIPINE BESYLATE) 10 Mg Tablet, 10 MG PO DAILY for HTN for 30 Days, #30 TAB 5 Refills Prov:TRINA ALDANA MD 09/07/21 Carvedilol (CARVEDILOL) 25 Mg Tablet, 25 MG PO BIDWMEALS for CARDIAC for 30 Days, #60 TAB 5 Refills Prov:TRINA ALDANA MD 09/07/21 Atorvastatin Calcium (ATORVASTATIN CALCIUM) 40 Mg Tablet, 40 MG PO QHS for Hyperlipidemia for 30 Days, #30 TAB 5 Refills Prov:TRINA ALDANA MD 09/07/21 Insulin Glargine,Hum.rec.anlog (LANTUS SOLOSTAR) 100 Unit/1 Ml Insuln.pen, 12 UNIT SQ DAILY for DM, #15 ML 3 Refills Prov:TRINA ALDANA MD 09/07/21 Oxycodone/Apap 7.5-325 (PERCOCET 7.5-325 MG TABLET ) 1 Each Tablet, 1 TAB PO PRN Q6HRS PRN for PAIN, #40 TAB 0 Refills Prov:TRINA ALDANA MD 06/26/21 Methocarbamol (METHOCARBAMOL) 750 Mg Tablet, 750 MG PO PRN TID PRN for MUSCLE SPASMS for 10 Days, #30 TAB 1 Refill Prov:TRINA ALDANA MD 06/26/21 Baclofen (BACLOFEN) 10 Mg Tablet, 5 MG PO TID PRN for HICCUPS, #15 TAB Prov:TRINA ALDANA MD 04/25/21 Sevelamer Carbonate (RENVELA) 800 Mg Tablet, 800 MG PO TIDWMEALS for ESRD for 30 Days, #90 TAB 5 Refills Prov:TRINA ALDANA MD 07/04/20 Reported Medications Trazodone Hcl (TRAZODONE HCL) 150 Mg Tablet, 150 MG PO HS for INSOMNIA, TAB 09/11/21 Rice-3 Fatty Acids/Fish Oil (FISH OIL 1,000 MG SOFTGEL) 1 Each Capsule, 1 CAP PO DAILY for supplement for 30 Days, #30 CAP 0 Refills 09/06/21 Omeprazole (OMEPRAZOLE) 40 Mg Capsule.dr, 1 CAP PO DAILY for reflux, #30 CAP 3 Refills 09/06/21 Lipase/Protease/Amylase (ZENPEP DR 10,000 UNITS CAPSULE) 1 Each Capsule., 3 CAP PO TIDWMEALS for supplement, CAP 04/18/21 Doxazosin Mesylate (DOXAZOSIN MESYLATE) 4 Mg Tablet, 1 TAB PO DAILY for HTN, #30 TAB 5 Refills 04/18/21 Hydralazine Hcl (HYDRALAZINE HCL) 100 Mg Tablet, 1 TAB PO TID for , #90 TAB 5 Refills 06/29/20 Aspirin (ASPIR 81) 81 Mg Tablet., 1 TAB PO DAILY for heart healthy 08/26/17 Discontinued Reported Medications Trazodone Hcl (TRAZODONE HCL) 100 Mg Tablet, 1.5 TAB PO QHS for insomnia, #30 TAB 1 Refill 12/16/20 Ferrous Sulfate (FERROUS SULFATE) 325 Mg Tablet, 1 TAB PO DAILY for supplement, #30 TAB 3 Refills 09/06/21 Allergy Allergies Coded Allergies Type Severity Reaction Last Updated Verified morphine Allergy Intermediate Itching 09/09/21 Yes lisinopril Adverse Reaction Intermediate Dry Cough 09/09/21 Yes Follow up in 7 days. DISPOSITION: Home Comments Discharge Management - 35 minutes. For other details please refer to discharge instructions Justicifation of Admission Dx: Justifications for Admission: Justification of Admission Dx: N/A TRINA ALDANA MD Sep 12, 2021 10:57
[2021-09-12] MEDS ORDERED: ISOS30TA19 PO (11:02)
--- NOTE | 2021-09-12 11:03 | PDOC ---
DATE OF SERVICE DATE: 09/12/21 TIME: 11:02 SUBJECTIVE ROS stable OBJECTIVE Vital Signs Vital Signs Date Time Temp Pulse Resp B/P (MAP) Pulse Ox O2 Delivery O2 Flow Rate FiO2 09/12/21 08:43 87 149/86 09/12/21 08:00 Room Air 4.0 09/12/21 07:00 97.7 16 89 97.7 I & 0 Intake and Output 09/12/21 06:59 Intake Total 1050 ml Output Total 200 ml Balance 850 ml Intake Oral 1050 ml Output Urine Total 200 ml # Voids 1 PHYSICAL EXAM Physical Exam GENERAL: NAD HEENT: Normocephalic, atraumatic. Anicteric.On chronic o2 by NC NECK: Supple LUNGS: Clear bilaterally. decraesed at bases HEART: S1, S2. ABDOMEN: Soft, nontender, nondistended, no rebound or guarding. EXTREMITIES: No edema, no cyanosis. DERMATOLOGIC: Warm, dry, no generalized rash. NEUROLOGIC: Alert and oriented x 3, grossly no focal deficit PSYCHIATRIC: Calm and cooperative. No ruth, No CVA or SP tenderness DIAGNOSIS/ASSESSMENT Assessment & Plan ESRD on HD MWF, on HD since 2019 ,Currently no emergent need for dialysis. Resume dc at OP unit tomorrow if dced today Undergoing Renal Tx eval at Nausea/Vomiting POA- Acute gastroenteritis resolved HypoNatremia- Mild. History of severe Apr 2021 Na to 118 . Na improved since dced Mirtazipine Accelerated hypertension Antihypertensives, Renal Doppler in Aug 2019, No e/o JOSELYN . On multiple meds including . Card manages Anemia - MOnitor Diabetes mellitus type 2. History of prostate cancer.s/p Radiation treatment Hx of COVID 19 Pneumonia HX of CAD and [place] COMMENT/RELEVANT DATA Meds Current Medications Medications (Trade) Dose Ordered Sig/Ravinder Start Time Stop Time Status Last Admin Dose Admin Acetaminophen (Tylenol) 650 mg PRN Q6HRS PRN 09/10/21 09:30 Amylase/Lipase/ Protease (Zenpep 10,000) 3 cap TIDWMEALS 09/10/21 12:00 09/12/21 09:22 3 CAP Carvedilol (Coreg) 25 mg BIDWMEALS 09/10/21 11:00 09/12/21 08:43 25 MG Clonidine HCl (Catapres Tts-2) 1 patch 1X ONCE 09/10/21 09:30 09/10/21 09:31 DC 09/10/21 10:31 1 PATCH Dextrose (Dextrose 50%-Water Syringe) 12.5 gm PRN Q15MIN PRN 09/09/21 22:00 09/12/21 06:15 12.5 GM Dextrose (Iv Dextrose 5%) 250 ml PRN Q15MIN PRN 09/09/21 22:00 09/12/21 05:50 250 ML Dextrose/Sodium Chloride 1,000 ml @ 60 mls/hr 1X ONCE 09/09/21 22:00 09/10/21 14:39 DC 09/10/21 04:57 60 MLS/HR Doxazosin Mesylate (Cardura) 4 mg DAILY 09/10/21 11:00 09/12/21 08:43 4 MG Fentanyl Citrate (Fentanyl 2ml Vial) 50 mcg PRN Q1HR PRN 09/09/21 22:00 09/10/21 21:59 DC 09/10/21 04:56 50 MCG Hydralazine HCl (Apresoline Inj) 10 mg PRN Q4HRS PRN 09/09/21 22:00 09/10/21 01:32 10 MG Info (PHARMACY MONITORING -- do not chart) 1 each PRN DAILY PRN 09/11/21 07:45 UNV Insulin Glargine (Lantus Syringe) 12 unit DAILY 09/11/21 18:00 09/11/21 17:19 12 UNIT Insulin Human Lispro (HumaLOG) 15 units 1X ONCE 09/11/21 17:15 09/11/21 17:16 DC 09/11/21 17:19 15 UNITS Insulin Human Regular (HumuLIN R VIAL) 6 unit 1X ONCE 09/09/21 22:15 09/09/21 22:16 DC 09/09/21 23:35 6 UNIT Isosorbide Mononitrate (Imdur) 30 mg 1X ONCE 09/11/21 15:00 09/11/21 15:01 DC 09/11/21 15:04 30 MG Labetalol HCl (Normodyne Iv Push) 10 mg 1X ONCE 09/09/21 22:15 09/09/21 22:16 DC 09/09/21 23:42 10 MG Magnesium Sulfate/ Dextrose 100 ml @ 100 mls/hr 1X ONCE 09/10/21 14:00 09/10/21 14:59 DC 09/10/21 13:45 100 MLS/HR Ondansetron HCl (Zofran) 4 mg Q6HRS PRN 09/10/21 09:30 Oxycodone/ Acetaminophen (Percocet 7.5/ 325) 1 tab PRN Q6HRS PRN 09/10/21 09:30 Pantoprazole Sodium (PROTONIX VIAL for IV PUSH) 40 mg DAILYAC 09/10/21 07:30 09/11/21 12:43 DC 09/11/21 06:03 40 MG Pantoprazole Sodium (Protonix) 40 mg BIDAC 09/11/21 16:30 09/12/21 08:43 40 MG Potassium Chloride/Water 100 ml @ 100 mls/hr Q1H 09/10/21 13:00 09/10/21 16:59 DC 09/10/21 15:55 100 MLS/HR Potassium Chloride (Klor-Con) 10 meq 1X ONCE 09/10/21 18:00 09/10/21 18:01 DC 09/10/21 17:59 10 MEQ Prochlorperazine Edisylate (Compazine) 10 mg 1X ONCE 09/09/21 22:15 09/09/21 22:16 DC 09/09/21 23:43 10 MG Lab Laboratory Tests Test 09/11/21 12:39 09/11/21 16:40 09/11/21 16:41 09/11/21 20:28 Glucose (Fingerstick) 204 mg/dL (70-99) 564 mg/dL (70-99) 567 mg/dL (70-99) 59 mg/dL (70-99) Test 09/12/21 05:45 09/12/21 06:38 09/12/21 10:48 Glucose (Fingerstick) 37 mg/dL (70-99) 148 mg/dL (70-99) 86 mg/dL (70-99) Results All relevant outside records, renal labs, imaging studies, telemetry/EKG's were reviewed. Justicifation of Admission Dx: Justifications for Admission: Justification of Admission Dx: N/A CARLO CHAUHAN MD Sep 12, 2021 11:03
--- NOTE | 2021-09-12 11:09 | NUR ---
SS following up with discharge planning. SS reviewed pt chart and discussed with pt RN. Pt is currently on room air. COVID19 negative. Pt has outpatient hemodialysis at [facility], ; fax [phone], Saturday, Saturday, and Saturday. Discharge order on the chart for home with self care. [facility] notified.
--- NOTE | 2021-09-12 11:26 | NUR ---
DISCHARGED PATIENT TO HOME. DISCHARGE INSTRUCTIONS GIVEN. PIV AND HEART MONITOR REMOVED. ESCORTED PATIENT OFF UNIT INTO A PRIVATE VEHICLE.
--- NOTE | 2021-09-12 14:09 | PDOC ---
PRESTON CALABRESE WEB DEVELOPMENT INSTRUCTOR 09/12/21 1409: CARDIO Progress Notes Date and Time Date of Service 09/12/21 Time of Evaluation 1050 Subjective Subjective: No Chest Pain, No shortness of breath, No Palpitations, No Dizziness Vitals Vitals Vital Signs Date Time Temp Pulse Resp B/P (MAP) Pulse Ox O2 Delivery O2 Flow Rate FiO2 09/12/21 08:43 87 149/86 09/12/21 08:00 Room Air 4.0 09/12/21 07:00 97.7 16 89 97.7 Weight Weight [ ] Input and Output Intake and Output Intake and Output 09/12/21 07:00 Intake Total 1050 ml Output Total 200 ml Balance 850 ml Intake Oral 1050 ml Output Urine Total 200 ml # Voids 1 Laboratory Labs Laboratory Tests Test 09/11/21 16:40 09/11/21 16:41 09/11/21 20:28 09/12/21 05:45 Glucose (Fingerstick) 564 mg/dL (70-99) 567 mg/dL (70-99) 59 mg/dL (70-99) 37 mg/dL (70-99) Test 09/12/21 06:38 09/12/21 10:48 Glucose (Fingerstick) 148 mg/dL (70-99) 86 mg/dL (70-99) Physical Exam HEENT: Neck Supple W Full Motion Chest: Symmetric LUNGS: Clear to Auscultation Heart: RRR Abdomen: Soft N/T Extremities: No Edema Neurology: alert, oriented, follow commands Assessment Assessment 1. Nausea/vomiting, gastroparesis; resolved. plans for GES 2. Accelerated hypertension: Patient unable to keep oral medications down secondary to nausea/vomiting. Medications resumed- BP remains elevated 3. Non-STEMI; trop peak 131. most probably type II, demand ischemia. Patient denied any chest pain and EKG without acute changes. 4. CAD s/p PCI/stent to the LCx; [facility] 01/09 showed patent LCx stent and no lesions needing intervention. Follows with Dr. Jahaira FOSTER 5. Chronic diastolic CHF; appears compensated. recent echo with preserved LV systolic function 6. Hyperlipidemia: Statins 7. ESRD on HD 8. Diabetes, II 9. Hypokalemia, hypomagnesemia; replaced Recommendations Secondary prevention Continue current antiHTN therapy Fluid offloading via HD Outpatient event monitor and ischemic evaluation. Follow up with primary construction mgr, Dr. Campo, as previously scheduled Justicifation of Admission Dx: Justifications for Admission: Justification of Admission Dx: N/A PETRA TELLEZ MD 09/13/21 0729: CARDIO Progress Notes Plan Plan Late entry for 09/12/2021 The patient was seen and interviewed as well as examined at the bedside. The chart was reviewed. The case was discussed. Agree with the plan of care. PRESTON CALABRESE APRN Sep 12, 2021 14:09 PETRA TELLEZ MD Sep 13, 2021 07:29
== END 2021-09-12 11:25 | disposition home or self-care (01) | DRG 391 ==
LOC: ER 20:31 → 5 NORTH 22:25 → 6 SOUTH 09-10 00:15
PROVIDERS: ADMIT Internal Medicine; ATTEND Internal Medicine
PROC: 5A1D70Z Performance of Urinary Filtration, Intermittent, Less than 6 Hours Per Day (ICD-10-PCS; principal; 2021-09-11)
DX: A08.4 Viral intestinal infection, unspecified (principal); N18.6 End stage renal disease; I16.9 Hypertensive crisis, unspecified; I24.8 Other forms of acute ischemic heart disease; I50.32 Chronic diastolic (congestive) heart failure; J96.11 Chronic respiratory failure with hypoxia; K86.1 Other chronic pancreatitis; E87.1 Hypo-osmolality and hyponatremia; I13.2 Hypertensive heart and chronic kidney disease with heart failure and with stage 5 chronic kidney disease, or end stage renal disease; E11.43 Type 2 diabetes mellitus with diabetic autonomic (poly)neuropathy; E11.22 Type 2 diabetes mellitus with diabetic chronic kidney disease; E11.42 Type 2 diabetes mellitus with diabetic polyneuropathy; E11.649 Type 2 diabetes mellitus with hypoglycemia without coma; E11.65 Type 2 diabetes mellitus with hyperglycemia; E78.2 Mixed hyperlipidemia; E83.42 Hypomagnesemia; E87.6 Hypokalemia; F17.210 Nicotine dependence, cigarettes, uncomplicated; G89.29 Other chronic pain; I25.10 Atherosclerotic heart disease of native coronary artery without angina pectoris; I25.2 Old myocardial infarction; Z20.822 Contact with and (suspected) exposure to COVID-19; J44.9 Chronic obstructive pulmonary disease, unspecified; K21.9 Gastro-esophageal reflux disease without esophagitis; K31.84 Gastroparesis; K57.90 Diverticulosis of intestine, part unspecified, without perforation or abscess without bleeding; M19.90 Unspecified osteoarthritis, unspecified site; M48.02 Spinal stenosis, cervical region; M54.12 Radiculopathy, cervical region; F41.9 Anxiety disorder, unspecified; D63.8 Anemia in other chronic diseases classified elsewhere; Z79.4 Long term (current) use of insulin; Z82.49 Family history of ischemic heart disease and other diseases of the circulatory system; Z83.3 Family history of diabetes mellitus; Z86.16 Personal history of COVID-19; Z87.01 Personal history of pneumonia (recurrent); Z87.19 Personal history of other diseases of the digestive system; Z90.49 Acquired absence of other specified parts of digestive tract; Z91.19 Patient's noncompliance with other medical treatment and regimen; Z95.5 Presence of coronary angioplasty implant and graft; Z98.1 Arthrodesis status; Z99.2 Dependence on renal dialysis; Z99.81 Dependence on supplemental oxygen; Z88.5 Allergy status to narcotic agent; Z88.8 Allergy status to other drugs, medicaments and biological substances; Z85.46 Personal history of malignant neoplasm of prostate; Z92.3 Personal history of irradiation
CPT/HCPCS: 36415; 71045; 80053; 82962; 83690; 83735; 83880; 84132; 84484; 85025; 87340; 93005; 96374; 96375; C9113; J0360; J0780; J1815; J2405; J3010; J3475; J3480; J3490; J7042; J7060; U0003; 99285-25; G0378

== ENCOUNTER 2021-10-15 04:32 | Emergency (ER) | payer BC ==
[~2021-10-15] VITALS: Ht 165.1 cm; Wt 59.0 kg
[~2021-10-15 04:32] MED LIST changes: +ISOS30TA19 PO; +TRAZ150T49 PO
--- NOTE | 2021-10-15 04:36 | PHYS DOC ---
Past Medical History Past Medical History: Cancer, Diabetes-Type II, High Cholesterol, Hypertension, DC, Pancreatitis, Renal Failure, Other Additional Past Medical Histor: ARF WITH DIAYLSIS M-w- Past Surgical History: Other Additional Past Surgical Histo: AV FISTULA Smoking Status: Light Tobacco Smoker Alcohol Use: None Drug Use: None General Adult EDM: Chief Complaint: HYPOGLYCEMIA HPI: HPI: Patient is a 56 year old male brought in by EMS for hypoglycemia. He is unsure how long his blood sugar was low. EMS reported that it was in the 50s, he was given IM glucagon. Blood sugar only improved modestly. The patient is given milk, juice and food to eat on arrival. He reports that he felt cold and shaky, but other than that he has no specific complaints. He reports that for the past week or so he has had a "cold" and he has had negative outpatient Covid test. He has a dry cough. He denies chest pain or dyspnea. He denies hemoptysis. He denies fevers or chills prior to this. Denies abdominal pain, nausea, vomiting. He reports that he takes insulin only for his diabetes mellitus, he takes fast acting and long-acting insulin. No medication regimen changes reportedly. He denies any head injury, fall, trauma. On arrival, he does have a lower core temperature. It sounds like a family member with whom he lives called EMS when they found him confused and sweating. Review of Systems: Review of Systems: Constitutional: Denies fever or chills. [] Eyes: Denies change in visual acuity. [] HENT: Mild nasal congestion. Denies sore throat. Respiratory: Dry cough. Denies dyspnea. Cardiovascular: Denies chest pain or edema. [] GI: Denies abdominal pain, nausea, vomiting, or diarrhea Musculoskeletal: Denies back pain or joint pain. [] Integument: Denies rash. [] Neurologic: Denies headache, focal weakness or sensory changes. Denies head injury, syncope. Endocrine: Hypoglycemia Psychiatric: Denies depression or anxiety. [] Heart Score: C/O Chest Pain: No Risk Factors: Risk Factors: DM, Current or recent (<one month) smoker, HTN, HLP, family history of CAD, obesity. Risk Scores: Score 0 - 3: 2.5% MACE over next 6 weeks - Discharge Home Score 4 - 6: 20.3% MACE over next 6 weeks - Admit for Clinical Observation Score 7 - 10: 72.7% MACE over next 6 weeks - Early Invasive Strategies Allergies: Allergies: Allergies Coded Allergies Type Severity Reaction Last Updated Verified morphine Allergy Intermediate Itching 09/09/21 Yes lisinopril Adverse Reaction Intermediate Dry Cough 09/09/21 Yes Physical Exam: PE: Constitutional: Well developed, well nourished, no acute distress, non-toxic appearance. [] HENT: Normocephalic, atraumatic, oropharynx is patent and clear. Mucous membranes moist. TMs are clear bilaterally. Nares are patent clear without rhinorrhea epistaxis. Eyes: PERRL, EOMI, conjunctiva normal, no discharge. No scleral icterus. No nystagmus. Neck: Normal range of motion, no tenderness, supple, no stridor. No meningismus. No midline tenderness or step-offs. No deformity Cardiovascular:Heart rate regular rhythm, +2 radial pulses bilaterally. Lungs & Thorax: Lungs are clear to auscultation bilaterally without rales, rhonchi or wheezes. No stridor. No tachypnea. No evidence of chest wall trauma. No distress. Abdomen: Abdomen is soft, nondistended, nontender to palpation. No palpable masses organomegaly. No evidence of abdominal or flank ecchymoses or trauma. Skin: Warm, dry, no erythema, no rash. No open wounds, lacerations, abrasions. Back: No tenderness, no CVA tenderness. Full range of motion. No step-offs or midline tenderness. Extremities: No tenderness, no cyanosis, no clubbing, ROM intact, bilateral, symmetric 1+ lower extremity edema. No calf tenderness. Neurologic: Alert and oriented X 3, normal motor function, normal sensory function, no focal deficits noted. [] Psychologic: Affect normal, judgement normal, mood normal. He is pleasant and cooperative. EKG: EKG: EKG is interpreted at 0453 Rhythm is sinus Rate is 51 bpm Nathalie is normal No STEMI Radiology/Procedures: Radiology/Procedures: IMAGING REPORT Signed PATIENT: ADAIR PINEDA JACCOUNT: [id number] : 1965 LOCATION: ER AGE: 56 SEX: M EXAM STATUS: PRE ER ORD. PHYSICIAN: MARIPOSA SALOMON DO REASON: cough PROCEDURE: PORTABLE CHEST 1V EXAMINATION: XR CHEST 1V CLINICAL HISTORY: Cough. EXAM DATE/TIME: 10/15/2021 5:48 AM COMPARISON: 09/09/2021 FINDINGS: Lines, Tubes, and Devices: None. Cardiomediastinal Silhouette: Normal heart size. Aortic atherosclerotic calcification. Lungs and Pleura: No evidence of focal airspace consolidation or pleural effusion. Pulmonary vasculature unremarkable. Bones and Soft Tissues: No acute osseous abnormality. Partially visualized cervical fusion hardware. IMPRESSION: No evidence of acute cardiopulmonary abnormality or significant interval change. Electronically signed by: Nicko Ayala DO (10/15/2021 5:59 AM) [facility] DICTATED and SIGNED BY: NICKO AYALA DO DATE: 10/15/21 0558 Course & Med Decision Making: Course & Med Decision Making Pertinent Labs and Imaging studies reviewed. (See chart for details) The patient is observed in the ED for several hours. He has had normal blood sugar readings, no recurrent hypoglycemic episodes. He was able to drink milk and eat food, without difficulty. The patient's core temperature still read low, though I felt that given his clinical improvement and lack of current or prolonged hypoglycemia here this might be false. He is kept on the bear hugger. As of 734, I personally checked his oral temperature, noted it to be 97.3. The patient continues to deny physical pain or discomfort. He denies chest pain or dyspnea. He does have some leukocytosis, though this is likely related to acute stress reaction secondary to some prolonged hypoglycemia. He clinically does not have any evidence of sepsis. Vital signs are stable. The patient is anxiously waiting discharge home, he does not wish to be admitted or kept for further observation. I told him to contact his PCP first thing in the morning. He is scheduled to have dialysis tomorrow, he should continue this as directed. He may need to have his insulin regimen modified given his progressively worsening renal failure. Return precautions are given. He verbalizes understanding. Eldon Disclaimer: Eldon Disclaimer: This electronic medical record was generated, in whole or in part, using a voice recognition dictation system. Departure Departure Impression: Primary Impression: Hypoglycemia Additional Impressions: Insulin dependent diabetes mellitus End stage renal disease on dialysis Disposition: HOME / SELF CARE / HOMELESS Condition: STABLE Referrals: TRINA ALDANA MD (PCP) Patient Instructions: Hypoglycemia (Low Blood Sugar) Additional Instructions: Return to the ER for chest pain, shortness of breath, temperature 100.4 or higher, if you are acutely injured, sustained any fall or trauma, have a severe headache, severe abdominal pain, uncontrolled vomiting, focal weakness or any other concerns. Please contact your collection analyst and primary care doctor first thing in the morning to discuss your hypoglycemia. Make sure you monitor your blood sugar with meals, before you take your fast acting insulin. I would not take your long-acting insulin tonight, speak further with your doctors about this. Go to dialysis tomorrow, as scheduled. MARIPOSA SALOMON DO Oct 15, 2021 04:36
[2021-10-15 05:42] LABS: BASO # 0.1 x10^3/uL (0.0-0.2); BASO % 0 % (0-3); EOS % 0 % (0-3); HEMOGLOBIN 11.1 g/dL (13.0-17.5); LYMPH # 0.8 x10^3/uL (1.0-4.8); LYMPH % 5 % (24-48); MEAN CORPUSCULAR HEMOGLOBIN 27 pg (25-35); MEAN CORPUSCULAR HGB CONC 32 g/dL (31-37); MEAN CORPUSCULAR VOLUME 84 fL (79-100); MONO # 0.7 x10^3/uL (0.0-1.1); MONO % 4 % (0-9); NEUT # 15.8 x10^3/uL (1.8-7.7); NEUT % 91 % (31-73); PLATELET COUNT 328 x10^3/uL (140-400); RED BLOOD COUNT 4.16 x10^6/uL (4.30-5.70); RED CELL DISTRIBUTION WIDTH 16.7 % (11.5-14.5); WHITE BLOOD COUNT 17.4 x10^3/uL (4.0-11.0)
[2021-10-15 05:57] LABS: CALCIUM 8.3 mg/dL (8.5-10.1); CREATININE 5.5 mg/dL (0.7-1.3); GFR 13.1; POTASSIUM 3.6 mmol/L (3.5-5.1)
[2021-10-15 06:00] LABS: MAGNESIUM 1.6 mg/dL (1.8-2.4); PHOSPHORUS 4.2 mg/dL (2.6-4.7)
--- NOTE | 2021-10-15 06:01 | RAD ---
EXAMINATION: XR CHEST 1V CLINICAL HISTORY: Cough. EXAM DATE/TIME: 10/15/2021 5:48 AM COMPARISON: 09/09/2021 FINDINGS: Lines, Tubes, and Devices: None. Cardiomediastinal Silhouette: Normal heart size. Aortic atherosclerotic calcification. Lungs and Pleura: No evidence of focal airspace consolidation or pleural effusion. Pulmonary vasculat ure unremarkable. Bones and Soft Tissues: No acute osseous abnormality. Partially visualized cervical fusion hardware. IMPRESSION: No evidence of acute cardiopulmonary abnormality or significant interval change. Electronically signed by: Nicko Song DO (10/15/2021 5:59 AM) [facility]
[2021-10-15 06:12] LABS: % BANDS 3 % (0-9); % LYMPHS 5 % (24-48); % MONOS 6 % (0-10); % SEGS 86 % (35-66); PLT ESTIMATE ADEQUATE (ADEQUATE)
[2021-10-15 07:13] LABS: INFLUENZA A PATIENT NEGATIVE (NEGATIVE); INFLUENZA B PATIENT NEGATIVE (NEGATIVE)
[2021-10-15 08:30] VITALS: BP 170/78
--- NOTE | 2021-10-16 04:52 | EKG ---
[facility] [address] [place] [address] Test Date: 2021-10-15 Test Time: 04:53:01 Pat Name: ADAIR PINEDA Department: Room: Gender: M Surgical Physician Assistant: : 1965 Requested By: MARIPOSA SALOMON Order Number: [id number] Reading MD: Nicolas Rome MD Measurements Intervals [place] Rate: 51 P: 69 ND: 192 QRS: 28 QRSD: 106 T: 46 QT: 504 QTc: 467 Interpretive Statements SINUS RHYTHM Electronically Signed On 10-17-2021 7:02:32 CDT by Nicolas Rome MD
== END 2021-10-15 08:37 | disposition home or self-care (01) ==
LOC: ER 04:32
DX: E11.22 Type 2 diabetes mellitus with diabetic chronic kidney disease (principal); I12.0 Hypertensive chronic kidney disease with stage 5 chronic kidney disease or end stage renal disease; N18.6 End stage renal disease; Z20.822 Contact with and (suspected) exposure to COVID-19; E78.00 Pure hypercholesterolemia, unspecified; Z99.2 Dependence on renal dialysis; I25.2 Old myocardial infarction; Z72.0 Tobacco use; Z88.5 Allergy status to narcotic agent; Z88.6 Allergy status to analgesic agent
CPT/HCPCS: 36415; 71045; 80048; 83735; 83880; 84100; 84484; 85007; 85025; 87428; 93005; 99285-25

== ENCOUNTER 2021-11-01 20:14 | Emergency (ER) | payer BC ==
[~2021-11-01] VITALS: Ht 165.1 cm; Wt 132.0 kg
[2021-11-01] MEDS ORDERED: ONDANSETRON ODT 4 MG TAB.RAPDIS. PO ONE (21:00)
--- NOTE | 2021-11-01 21:45 | RAD ---
Exam: CT of chest without contrast INDICATION: Left rib pain TECHNIQUE: Sequential axial images through the chest obtained without IV contrast. Sagittal and coron al reformatted images were reconstructed from the axial data and reviewed. Exposure: One or more of the following in the visualized dose reduction techniques were utilized for this examination: 1. Automated exposure control 2. Adjustment of the MA and/or KV according to patient size 3. Use of iterative of reconstructive technique Comparisons: Chest x-ray same day FINDINGS: Visualized portions of the thyroid are unremarkable. No enlarged mediastinal lymph nodes. Heart size is normal. No pericardial effusion. Mild coronary artery calcifications. Thoracic aorta magaña s a normal course and caliber. Pulmonary artery is not enlarged. Airways are patent. No consolidation or pneumothorax. Mild centrilobular emphysematous change noted t hroughout the lungs. There is a 7 mm nodule right upper lobe series 2 image 31. No pleural effusion or thickening. Visualized upper abdomen is unremarkable. No suspicious osseous lesions or acute fractures. IMPRESSION: 1. No sequela of acute traumatic injury identified at the chest. 2. A 7 mm nodule right upper lobe. A six-month follow-up chest CT is recommended. Electronically signed by: Ainsley Bradford MD (11/01/2021 9:42 PM) [facility]
[2021-11-01 22:00] VITALS: BP 180/81
--- NOTE | 2021-11-01 22:00 | PHYS DOC ---
Past Medical History Past Medical History: Cancer, Diabetes-Type II, High Cholesterol, Hypertension, [place], Pancreatitis, Renal Failure, Other Additional Past Medical Histor: ARF WITH DIAYLSIS M-w-f Past Surgical History: No Surgical History Additional Past Surgical Histo: AV FISTULA Smoking Status: Never Smoker Alcohol Use: None Drug Use: None General Adult EDM: Chief Complaint: MECHANICAL FALL HPI: HPI: Patient is a 56 year old male with history of diabetes type 2, hypertension, high cholesterol, end-stage kidney disease on dialysis Saturday last dialyzed today presenting today complaining of 6 out of 10 left anterior rib pain that began after he fell. He states he was doing laundry he turned around and fell hitting his left chest on the floor. No loss of consciousness. Denies any head pain or neck pain. Denies being on any blood thinners. Denies hitting his head on the ground. Describes his pain as throbbing and intermittent. Review of Systems: Review of Systems: Constitutional: Denies fever or chills. [] HENT: Denies nasal congestion or sore throat. [] Respiratory: Reports left rib pain. Denies cough or shortness of breath. [] Cardiovascular: Denies chest pain or edema. [] GI: Denies abdominal pain, nausea, vomiting, bloody stools or diarrhea. [] : Denies dysuria. [] Musculoskeletal: Denies back pain or joint pain. [] Integument: Denies rash. [] Neurologic: Denies headache, focal weakness or sensory changes. [] Psychiatric: Denies depression or anxiety. [] Heart Score: C/O Chest Pain: N/A Risk Factors: Risk Factors: DM, Current or recent (<one month) smoker, HTN, HLP, family history of CAD, obesity. Risk Scores: Score 0 - 3: 2.5% MACE over next 6 weeks - Discharge Home Score 4 - 6: 20.3% MACE over next 6 weeks - Admit for Clinical Observation Score 7 - 10: 72.7% MACE over next 6 weeks - Early Invasive Strategies Current Medications: Current Medications Medications (Trade) Dose Ordered Sig/Ravinder Start Time Stop Time Status Last Admin Dose Admin Ondansetron HCl (Zofran Odt) 8 mg 1X ONCE 11/01/21 21:00 11/01/21 21:01 DC 11/01/21 21:00 8 MG Allergies: Allergies: Allergies Coded Allergies Type Severity Reaction Last Updated Verified morphine Allergy Intermediate Itching 09/09/21 Yes lisinopril Adverse Reaction Intermediate Dry Cough 09/09/21 Yes Physical Exam: PE: Constitutional: Well developed, well nourished, no acute distress, non-toxic appearance. [] HENT: Normocephalic, atraumatic, bilateral external ears normal, oropharynx moist, no oral exudates, nose normal. [] Eyes: PERRLA, EOMI, conjunctiva normal, no discharge. [] Neck: Normal range of motion, no tenderness, supple, no stridor. [] Cardiovascular:Heart rate regular rhythm Lungs & Thorax: No bruising or deformity noted on the chest. Bilateral breath sounds clear to auscultation, tenderness on palpation of the left anterior ribs mid axillary line rib 6-8 Abdomen: Bowel sounds normal, soft, no tenderness, no masses, no pulsatile masses. [] Skin: Warm, dry, no erythema, no rash. [] Back: No tenderness, no CVA tenderness. [] Extremities: No tenderness, no cyanosis, no clubbing, ROM intact, no edema. [] Neurologic: Alert and oriented X 3, normal motor function, normal sensory function, no focal deficits noted. [] Psychologic: Affect normal, judgement normal, mood normal. [] Current Patient Data: Vital Signs: Vital Signs Date Time Temp Pulse Resp B/P (MAP) Pulse Ox O2 Delivery O2 Flow Rate FiO2 11/01/21 20:33 98.1 94 20 138/68 (91) 98 Room Air 98.1 EKG: EKG: [] Radiology/Procedures: Radiology/Procedures: []PROCEDURE: CT CHEST WO CONTRAST Exam: CT of chest without contrast INDICATION: Left rib pain TECHNIQUE: Sequential axial images through the chest obtained without IV c ontrast. Sagittal and coronal reformatted images were reconstructed from the axial data and reviewed. Exposure: One or more of the following in the visualized dose reduction techniques were utilized for this examination: 1. Automated exposure control 2. Adjustment of the MA and/or KV according to patient size 3. Use of iterative of reconstructive technique Comparisons: Chest x-ray same day FINDINGS: Visualized portions of the thyroid are unremarkable. No enlarged mediastinal lymph nodes. Heart size is normal. No pericardial effusion. Mild coronary artery calcifications. Thoracic aorta has a normal course and caliber. Pulmonary artery is not enlarged. Airways are patent. No consolidation or pneumothorax. Mild centrilobular emphysematous change noted throughout the lungs. There is a 7 mm nodule right upper lobe series 2 image 31. No pleural effusion or thickening. Visualized upper abdomen is unremarkable. No suspicious osseous lesions or acute fractures. IMPRESSION: 1. No sequela of acute traumatic injury identified at the chest. 2. A 7 mm nodule right upper lobe. A six-month follow-up chest CT is recommended. Electronically signed by: Ainsley Alvarado MD (11/01/2021 9:42 PM) [facility] DICTATED and SIGNED BY: AINSLEY ALVARADO MD DATE: 11/01/212132 Course & Med Decision Making: Course & Med Decision Making Pertinent Labs and Imaging studies reviewed. (See chart for details) This a 56-year-old male patient presenting to the ED today to be evaluated for left anterior rib pain that began today after he fell. CT of the chest is negative for any acute findings, noted for a 7 mm nodule right upper lobe. A six-month follow-up chest CT is recommended. Discharge home. Follow-up with PCP in 1 week [place] Disclaimer: Dragesperanza Disclaimer: This electronic medical record was generated, in whole or in part, using a voice recognition dictation system. Departure Departure Impression: Primary Impression: ESRD (end stage renal disease) Additional Impressions: Fall Qualified Codes: W19.XXXA - Unspecified fall, initial encounter Chest wall contusion Qualified Codes: S20.212A - Contusion of left front wall of thorax, initial encounter Disposition: HOME / SELF CARE / HOMELESS Condition: STABLE Referrals: TRINA ALDANA MD (PCP) follow up in one week Patient Instructions: Chest Contusion, [id number], Fall Prevention and Home Safety, [id number] Additional Instructions: You were evaluated in the emergency room after falling, your CT of the chest is negative for any acute findings. You have a 7 mm nodule right upper lobe. A six-month follow-up chest CT is recommended. Please follow-up with your doctor in 1 to 2 weeks. Try to ice and elevate your chest, take deep breaths 10 times every hour while awake. Come back to the ED at any point symptoms worsen LAKEISHA TIM APRN Nov 01, 2021 22:00
== END 2021-11-01 22:10 | disposition home or self-care (01) ==
LOC: ER 20:14
DX: S20.212A Contusion of left front wall of thorax, initial encounter (principal); I12.0 Hypertensive chronic kidney disease with stage 5 chronic kidney disease or end stage renal disease; E11.22 Type 2 diabetes mellitus with diabetic chronic kidney disease; N18.6 End stage renal disease; Z99.2 Dependence on renal dialysis; I25.2 Old myocardial infarction; E78.00 Pure hypercholesterolemia, unspecified; Z88.5 Allergy status to narcotic agent; Z88.6 Allergy status to analgesic agent; W18.09XA Striking against other object with subsequent fall, initial encounter; Y93.89 Activity, other specified; Y99.8 Other external cause status; Y92.89 Other specified places as the place of occurrence of the external cause
CPT/HCPCS: 71250; 99284-25

== ENCOUNTER 2021-11-09 18:24 | Inpatient (IN) | payer BC ==
[~2021-11-09] VITALS: Ht 157.5 cm; Wt 63.5 kg
[2021-11-09] VITALS (8 sets, daily range): BP systolic 162–220; BP diastolic 72–105
[2021-11-09] MEDS ORDERED: CONTRAST GIVEN. MC PRN (19:00)
[2021-11-09] MEDS ORDERED: IOHEXOL 350 MG/ML 100 ML VIAL. IV ONE (19:00)
[2021-11-09 19:07] LABS: BASE EXCESS COOX 1 mmol/L (-3-3); HCO3 COOX 22 mmol/L (21-28); METHEMOGLOBIN 0.3 % (0.0-1.9); OXYHEMOGLOBIN 96.2 %; PCO2 COOX 23 mmHg (35-46); PO2 COOX 82 mmHg (75-108); SAT O2 COOX 97 % (92-99)
[2021-11-09] MEDS ORDERED: IV NORMAL SALINE 500ML BAG 250 ML IV ONE (19:15)
--- NOTE | 2021-11-09 19:25 | RAD ---
XR CHEST 1V History: Reason: AMS / Spl. Instructions: / History: Comparison: October 15, 2021 Findings: Mild reticular interstitial thickening. No consolidation or pleural effusion. Normal heart size. No p neumothorax. Impression: 1. Mild reticular interstitial thickening, likely due to chronic interstitial changes. Electronically signed by: Omid Arnold DO (11/09/2021 7:23 PM) [facility]
--- NOTE | 2021-11-09 19:29 | RAD ---
CT STROKE HEAD W/O Date: 11/09/2021 6:57 PM Clinical Indication: acute aphasia Comparison: None. Technique: 5 mm axial tomographic images were obtained of the head without contrast. These were view ed on brain and bone windows. One or more of the following dose reduction techniques were utilized: A utomated exposure control (AEC), Adjustment of mA and/or kV according to patient size, Use of iterati ve reconstruction technique such as ASiR, CT scan done according to ALARA and image gently/image araiza ly Findings: Mild nonspecific periventricular hypoattenuation is most consistent with chronic small vessel ischemi c disease. No intra- or extra-axial mass or fluid collection. No acute hemorrhage. The ventricles are normal in size, shape, and morphology. The denis-white matter junction is normal. The subarachnoid ci sterns are patent. The visualized paranasal sinuses are normal. The visualized portions of the orbits and globes are no rmal. The mastoid air cells are clear. The director of scout work topogram shows no lytic lesion or fracture. Impression: No acute hemorrhage or large territory denis-white loss. FOR INTERNAL CODING PURPOSES Critical result: Findings discussed with BRANDT LOTT MD at 11/09/2021 7:15 PM. RESULT CODE: (C) Electronically signed by: Nathaniel Cantrell MD (11/09/2021 7:26 PM) [facility]
[2021-11-09 19:41] LABS: BASO # 0.1 x10^3/uL (0.0-0.2); BASO % 1 % (0-3); EOS # 0.2 x10^3/uL (0.0-0.7); EOS % 2 % (0-3); HEMATOCRIT 32.4 % (39.0-53.0); HEMOGLOBIN 10.8 g/dL (13.0-17.5); LYMPH # 2.1 x10^3/uL (1.0-4.8); LYMPH % 29 % (24-48); MEAN CORPUSCULAR HEMOGLOBIN 28 pg (25-35); MEAN CORPUSCULAR HGB CONC 33 g/dL (31-37); MEAN CORPUSCULAR VOLUME 83 fL (79-100); MONO # 0.5 x10^3/uL (0.0-1.1); MONO % 7 % (0-9); NEUT # 4.4 x10^3/uL (1.8-7.7); NEUT % 61 % (31-73); PLATELET COUNT 250 x10^3/uL (140-400); RED BLOOD COUNT 3.89 x10^6/uL (4.30-5.70); RED CELL DISTRIBUTION WIDTH 15.8 % (11.5-14.5); WHITE BLOOD COUNT 7.3 x10^3/uL (4.0-11.0)
--- NOTE | 2021-11-09 19:41 | PHYS DOC ---
Past Medical History Past Medical History: Cancer, Diabetes-Type II, High Cholesterol, Hypertension, [place], Pancreatitis, Renal Failure, Other Additional Past Medical Histor: diaylsis Past Surgical History: Other Additional Past Surgical Histo: fistula left upper arm Smoking Status: Unknown if ever smoked Alcohol Use: None Drug Use: None Adult General Chief Complaint Chief Complaint: NEURO SYMPTOMS/DEFICITS HPI HPI The patient is a 56-year-old comorbid male with a history of hypertension, hyperlipidemia, coronary artery disease status post stenting, COPD on home oxygen, insulin-dependent diabetes, end-stage renal disease on hemodialysis MWF and compliant (last HD yesterday), chronic pancreatitis. Mr. Murillo presents for evaluation of acute aphasia with onset at some time prior to arrival. Last known well was 4 PM, about 3 hours prior to arrival, at which time a family member left the home and reports that at that time the patient was speaking normally. Patient speaks in short fragmentary sentences with some inappropriate words. He is able to follow most simple commands but seems to have some degree of receptive aphasia as well. He denies pain anywhere. He is ambulatory to his room with a narrow, steady, non-ataxic gait. He is not able to provide further history secondary to acute aphasia. Patient stroke activated upon my evaluation. Vital signs appropriate here aside from a degree of elevated blood pressure (presenting systolic blood pressure 170). Blood glucose noted to be off scale high on fingerstick. Review of Systems Review of Systems Unable to obtain review of systems secondary to aphasia. Current Medications Current Medications Current Medications Medications (Trade) Dose Ordered Sig/Ravinder Start Time Stop Time Status Last Admin Dose Admin Info (CONTRAST GIVEN -- Rx MONITORING) 1 each PRN DAILY PRN 11/09/21 19:00 11/11/21 18:59 Iohexol (Omnipaque 350 Mg/ml) 75 ml 1X ONCE 11/09/21 19:00 11/09/21 19:01 DC Sodium Chloride 250 ml @ 500 mls/hr 1X ONCE 11/09/21 19:15 11/09/21 19:44 DC Allergies Allergies Allergies Coded Allergies Type Severity Reaction Last Updated Verified morphine Allergy Intermediate Itching 09/09/21 Yes lisinopril Adverse Reaction Intermediate Dry Cough 09/09/21 Yes Physical Exam Physical Exam 56-year-old male appearing nontoxic and in no acute distress. Head is normocephalic and atraumatic. Neck is supple and nontender. No stiffness/rigidity/meningismus seen and patient ranges neck fully in all dimensions without discomfort or distress. Oropharynx is moist. Lungs are clear to auscultation at all stations. There is a normal S1 and S2 without rubs or gallops and capillary refill is appropriate, less than 2 seconds globally. Abdomen is soft, nontender and nondistended. Skin is warm and dry without cyanosis, clubbing or edema. Psychiatrically, the patient demonstrates appropriate mood and affect and is alert. Neurologically, NIHSS2 for aphasia. Otherwise, completely nonfocal full formal neurologic exam. Evaluation of the extremities reveals BUEs and BLEs neurovascularly intact distally with strength out of 5, sensation intact to light touch in all nerve distributions, radial, DP and PT pulses 2+ and equal bilaterally, capillary refill less than 2 seconds, hands and feet warm and well-perfused. No dependent peripheral edema distally. No calf tenderness or swelling bilaterally. Homans test is negative bilaterally. Current Patient Data Vital Signs Vital Signs Date Time Temp Pulse Resp B/P (MAP) Pulse Ox O2 Delivery O2 Flow Rate FiO2 11/09/21 19:22 170/70 (103) 11/09/21 18:59 98.0 55 20 98 Room Air 98.0 Lab Values Laboratory Tests Test 11/09/21 19:07 11/09/21 19:25 O2 Saturation 97 % (92-99) Arterial Blood pH 7.60 (7.35-7.45) *H Arterial Blood pCO2 at Patient Temp 23 mmHg (35-46) L Arterial Blood pO2 at Patient Temp 82 mmHg (75-108) Arterial Blood HCO3 22 mmol/L (21-28) Arterial Blood Base Excess 1 mmol/L (-3-3) Oxyhemoglobin 96.2 % Methemoglobin 0.3 % (0.0-1.9) Carbon Monoxide, Quantitative 0.6 % (0.0-1.9) FiO2 21%/ra White Blood Count 7.3 x10^3/uL (4.0-11.0) Red Blood Count 3.89 x10^6/uL (4.30-5.70) L Hemoglobin 10.8 g/dL (13.0-17.5) L Hematocrit 32.4 % (39.0-53.0) L Mean Corpuscular Volume 83 fL (79-100) Mean Corpuscular Hemoglobin 28 pg (25-35) Mean Corpuscular Hemoglobin Concent 33 g/dL (31-37) Red Cell Distribution Width 15.8 % (11.5-14.5) H Platelet Count 250 x10^3/uL (140-400) Neutrophils (%) (Auto) 61 % (31-73) Lymphocytes (%) (Auto) 29 % (24-48) Monocytes (%) (Auto) 7 % (0-9) Eosinophils (%) (Auto) 2 % (0-3) Basophils (%) (Auto) 1 % (0-3) Neutrophils # (Auto) 4.4 x10^3/uL (1.8-7.7) Lymphocytes # (Auto) 2.1 x10^3/uL (1.0-4.8) Monocytes # (Auto) 0.5 x10^3/uL (0.0-1.1) Eosinophils # (Auto) 0.2 x10^3/uL (0.0-0.7) Basophils # (Auto) 0.1 x10^3/uL (0.0-0.2) Prothrombin Time 14.3 SEC (11.7-14.0) H Prothrombin Time INR 1.1 (0.8-1.1) Activated Partial Thromboplast Time 32 SEC (24-38) Sodium Level 123 mmol/L (136-145) L Potassium Level 3.2 mmol/L (3.5-5.1) L Chloride Level 87 mmol/L (98-107) L Carbon Dioxide Level 22 mmol/L (21-32) Anion Gap 14 (6-14) Blood Urea Nitrogen 19 mg/dL (8-26) Creatinine 4.9 mg/dL (0.7-1.3) H Estimated GFR (Cockcroft-Gault) 15.0 BUN/Creatinine Ratio 4 (6-20) L Glucose Level 687 mg/dL (70-99) *H Calcium Level 7.9 mg/dL (8.5-10.1) L Total Bilirubin 0.3 mg/dL (0.2-1.0) Aspartate Amino Transferase (AST) 12 U/L (15-37) L Alanine Aminotransferase (ALT) 20 U/L (16-63) Alkaline Phosphatase 170 U/L (46-116) H Troponin I High Sensitivity 19 ng/L (4-75) Total Protein 5.7 g/dL (6.4-8.2) L Albumin 2.5 g/dL (3.4-5.0) L Albumin/Globulin Ratio 0.8 (1.0-1.7) L Acetone Level Neg (NEG) Laboratory Tests 11/09/21 19:25 Laboratory Tests 11/09/21 19:25 EKG EKG Sinus rhythm, rate 55, no acute ST elevation or depression, first-degree AV block, NE 252, QRS 104, QTc 429, EP interpretation. Nonischemic tracing. Radiology/Procedures Radiology/Procedures CT STROKE HEAD W/O Date: 11/09/2021 6:57 PM Clinical Indication: acute aphasia Comparison: None. Technique: 5 mm axial tomographic images were obtained of the head without contrast. These were viewed on brain and bone windows. One or more of the following dose reduction techniques were utilized: Automated exposure control (AEC), Adjustment of mA and/or kV according to patient size, Use of iterative reconstruction technique such as ASiR, CT scan done according to ALARA and image gently/image wisely Findings: Mild nonspecific periventricular hypoattenuation is most consistent with chronic small vessel ischemic disease. No intra- or extra-axial mass or fluid collection. No acute hemorrhage. The ventricles are normal in size, shape, and morphology. The denis-white matter junction is normal. The subarachnoid cisterns are patent. The visualized paranasal sinuses are normal. The visualized portions of the orbits and globes are normal. The mastoid air cells are clear. The special procedure tech topogram shows no lytic lesion or fracture. Impression: No acute hemorrhage or large territory denis-white loss. FOR INTERNAL CODING PURPOSES Critical result: Findings discussed with BRANDT LOTT MD at 11/09/2021 7:15 PM. RESULT CODE: (C) Electronically signed by: Evelyne Cantrell MD (11/09/2021 7:26 PM) [facility] DICTATED and SIGNED BY: EVELYNE CANTRELL MD DATE: 11/09/211915 XR CHEST 1V History: Reason: AMS / Spl. Instructions: / History: Comparison: October 15, 2021 Findings: Mild reticular interstitial thickening. No consolidation or pleural effusion. Normal heart size. No pneumothorax. Impression: 1. Mild reticular interstitial thickening, likely due to chronic interstitial changes. Electronically signed by: Omid Montoya DO (11/09/2021 7:23 PM) [facility] DICTATED and SIGNED BY: OMID MONTOYA DO DATE: 11/09/211921 Course & Med Decision Making Course & Med Decision Making Case discussed immediately with Dr. Lee of [facility] stroke neurology. Head CT negative. Attempting to obtain CT angiography of head and neck as well but patient is a hard stick and we are having difficulty getting a large enough line placed. 1945: Rest of lab work without clear contraindications to tPA. Blood glucose is elevated but patient's primary Dr. Valadez reports that blood glucose is often elevated to this degree as patient is noncompliant. Doubt this would cause an i solated aphasia, even if the patient were hyperosmolar, which he does not seem to be. Rediscussed with Dr. Lee who recommends proceeding with tPA. Patient not able to consent due to aphasia so I discussed the situation with his mother Martha Smallwood. I discussed with her the risks of alteplase administration including the risk of devastating bleeding leading to permanent disability, loss of current lifestyle or even , as well as the risk of severe allergic reaction causing permanent disability or . I discussed that acute ischemic stroke was in the differential for the patient's presenting aphasia and that the major risk of deferring alteplase was that the patient would be left with devastating stroke symptoms forever. Patient's mother, after being apprised of the risks and benefits of tPA, stated in no uncertain terms that her son would want tPA to be administered. On detailed review of alteplase checklist, no absolute contraindications identified. Blood pressure elevated on recheck so labetalol and nicardipine drip ordered to facilitate giving tPA. Posterior reversible encephalopathy due to hypertension certainly also in the differential, so antihypertensives indicated from that standpoint as well. Starting insulin drip and a small fluid bolus to address hyperglycemia. We will give potassium repletion as well. Patient will go to the ICU where he is graciously accepted for admission by Dr. Valadez. Note: We are having difficulty getting large-bore IV access to facilitate CT angiography of the head and neck. If we are able to obtain large-bore IV a ccess, we will obtain those studies. Relatively low clinical suspicion for LVO given isolated aphasia without other acute neurologic symptoms. Critical care time was 75 minutes today. Dragon Disclaimer Dragon Disclaimer This electronic medical record was generated, in whole or in part, using a voice recognition dictation system. Departure Departure Impression: Primary Impression: Aphasia due to acute stroke Additional Impressions: Hyperglycemia due to type 2 diabetes mellitus Acute hypokalemia Hypertensive urgency Disposition: ADMITTED INPATIENT Condition: STABLE Referrals: TRINA VALADEZ MD (PCP) Problem Qualifiers Additional Impressions: Hyperglycemia due to type 2 diabetes mellitus Diabetes mellitus penitentiary insulin use: with penitentiary use Qualified Codes: E11.65 - Type 2 diabetes mellitus with hyperglycemia; Z79.4 - FPC (current) use of insulin BRANDT LOTT MD Nov 09, 2021 19:41
[2021-11-09 19:54] LABS: PROTHROMBIN TIME PATIENT 14.3 SEC (11.7-14.0)
[2021-11-09 19:58] LABS: ALBUMIN 2.5 g/dL (3.4-5.0); ALBUMIN/GLOBULIN RATIO 0.8 (1.0-1.7); CALCIUM 7.9 mg/dL (8.5-10.1); CREATININE 4.9 mg/dL (0.7-1.3); POTASSIUM 3.2 mmol/L (3.5-5.1); TOTAL BILIRUBIN 0.3 mg/dL (0.2-1.0); TOTAL PROTEIN 5.7 g/dL (6.4-8.2)
[2021-11-09] MEDS ORDERED: IV NORMAL SALINE 100ML 100 ML IV ONE (20:00)
[2021-11-09] MEDS ORDERED: ALTEPLASE IV ONE ×2 (20:00)
[2021-11-09] MEDS ORDERED: LABETALOL 20 MG/4 ML DISP.SYRIN. IVP ONE ×3 (20:05→20:30)
[2021-11-09] MEDS ORDERED: INSULIN REGULAR VIAL 100 UNIT in IV NORMAL SALINE 100ML 100 ML IV ONE (20:15)
[2021-11-09] MEDS ORDERED: ONDANSETRON PF 4 MG/2 ML VIAL. IVP PRN (20:30)
[2021-11-09] MEDS ORDERED: POTASSIUM CHLORIDE 20 MEQ TABLET.ER. PO ONE (20:30)
[2021-11-09] MEDS ORDERED: niCARdipine INJ. IV ONE (21:00)
[2021-11-09] MEDS ORDERED: IV NORMAL SALINE 100 ML BAG ONE (21:00)
[2021-11-09] MEDS ORDERED: IV NORMAL SALINE 250 ML BAG ONE (21:00)
[2021-11-09] MEDS ORDERED: INSULIN LISPRO 300 UNITS/3 ML VIAL. SQ ONE (21:30)
[2021-11-09 23:18] LABS: CALCIUM 7.9 mg/dL (8.5-10.1); CREATININE 4.8 mg/dL (0.7-1.3); GFR 15.4; MAGNESIUM 1.2 mg/dL (1.8-2.4); PHOSPHORUS 4.2 mg/dL (2.6-4.7); POTASSIUM 3.3 mmol/L (3.5-5.1)
[2021-11-10] VITALS (31 sets, daily range): BP systolic 129–213; BP diastolic 56–99
[2021-11-10] MEDS ORDERED: INSULIN REGULAR VIAL 100 UNIT in IV NORMAL SALINE 100ML 100 ML IV PRN
[2021-11-10] MEDS ORDERED: IV DEXTROSE 5 %-0.45 % NACL 1,000 ML IV SCH
[2021-11-10] MEDS ORDERED: POTASSIUM CHLORIDE 10MEQ 100 ML IV PRN
[2021-11-10] MEDS ORDERED: IV 1/2 NORMAL SALINE 1,000 ML IV SCH
[2021-11-10] MEDS: POTASSIUM CHLORIDE 10MEQ 100 ML IV PRN ×6 (00:42→12:45)
[2021-11-10] MEDS ORDERED: IV NORMAL SALINE 1000ML BAG 1,000 ML IV SCH (00:45)
--- NOTE | 2021-11-10 01:01 | EKG ---
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
[2021-11-10] MEDS ORDERED: IV DEXTROSE 5% - 0.9 % NACL 1,000 ML IV SCH (03:45)
[2021-11-10] MEDS ORDERED: LABETALOL 20 MG/4 ML DISP.SYRIN. IVP PRN (06:45)
[2021-11-10] MEDS ORDERED: ACETAMINOPHEN 650 MG SUPP.RECT. PR PRN (06:45)
[2021-11-10] MEDS ORDERED: ACETAMINOPHEN 325 MG TABLET. PO PRN ×2 (06:45→09:00)
--- NOTE | 2021-11-10 07:16 | NUR ---
Pt was brought to ICU from ED at 2133 last night. Pt initial NIH was 8 with severe aphasia. Pt on RA, SR, with 2 peripheral IV's. DKA protocol was initiated. Due to TPA intervention ruth was unable to be placed and IV in right forearm that went bad unable to be removed due to TPA bleed risk. Bad IV was charted but not in use. Unable to obtain better IV with sono, and lab draws limited to right arm due to left arm fistula. Pt voiding with urinal with one incontinence void and 2 BM. Bruising noted on lower back on admission to ICU, unsure if present before TPA was initiated, will pass along to day shift. Pt vomited x2, brown in color, undigested food. Zofran prn given x1. Pt will need central line for electrolyte replacements and limited IV access.
[2021-11-10] MEDS: ONDANSETRON PF 4 MG/2 ML VIAL. IVP PRN ×2 (08:19→20:27)
--- NOTE | 2021-11-10 08:24 | PDOC2 ---
NEUROLOGY CONSULT Date of Service DOS: DATE: 11/10/21 TIME: 08:10 Reason for Consult Reason for Consult: stroke Referring Physician Referring Physician: Dr. Valadez Source Source: Chart review History of Present Illness History of Present Illness The patient is a 56-year-old male with last known normal at 16:00 yesterday, Dr. Lee called me at 1900 with a history that the patient started speaking in short fragmentary sentences with inappropriate words. There was also some receptive aphasia. The patient's sugar was over 600. Nonetheless, we did agree that the patient was a candidate for alteplase which she did receive. Patient has been unable to get his CT angiogram because of lack of IV access. There we re no other focal findings besides the aphasia. There is no listed history of stroke. Past Medical History Cardiovascular: CAD, CHF, HTN, MO, Hyperlipidemia Pulmonary: COPD, Pneumonia (COVID), Other (Pulmonary fibrosis, sleep apnea) CENTRAL NERVOUS SYSTEM: Periperal neuropathy GI: Constipation (Diarrhea), Diverticulosis Heme/Onc: Anemia NOS, Other (MTHFR heterozygous mutation factor VIII) Hepatobiliary: Other (Pancreatitis) Psych: Addictions (Quit alcohol 2005), Other (Posttraumatic stress disorder) Renal/: Chronic renal failure (Dialysis) Endocrine: Diabetes Past Surgical History Past Surgical History: Cholecystectomy, Tonsillectomy (Adenoidectomy), Other (Cervical, lumbar, coronary stent, pancreatic pseudocyst, removal of salivary gland) Family History Family History: No pertinent hx Social History Social History Ex-smoker, ex alcohol abuser, disabled Current Medications Current Medications Current Medications Iohexol (Omnipaque 350 Mg/ml) 75 ml 1X ONCE IV ; Start 11/09/21 at 19:00; Stop 11/09/21 at 19:01; Status DC Info (CONTRAST GIVEN -- Rx MONITORING) 1 each PRN DAILY PRN MC SEE COMMENTS; Start 11/09/21 at 19:00; Stop 11/11/21 at 18:59 Sodium Chloride 250 ml @ 500 mls/hr 1X ONCE IV ; Start 11/09/21 at 19:15; Stop 11/09/21 at 19:44; Status DC Alteplase, Recombinant 5.4 ml @ 324 mls/hr 1X ONCE IV Last administered on 11/09/21at 20:20; Start 11/09/21 at 20:00; Stop 11/09/21 at 20:01; Status DC Alteplase, Recombinant 48.6 ml @ 48.6 mls/hr 1X ONCE IV Last administered on 11/09/21at 20:21; Start 11/09/21 at 20:00; Stop 11/09/21 at 20:59; Status DC Sodium Chloride 100 ml @ 100 mls/hr 1X ONCE IV Last administered on 11/09/21at 21:30; Start 11/09/21 at 20:00; Stop 11/09/21 at 20:59; Status DC Nicardipine HCl 50 mg/Sodium Chloride 250 ml @ 25 mls/hr CONT PRN PRN IV HYPERTENSION Last administered on 11/10/21at 01:36; Start 11/09/21 at 20:00; Stop 11/10/21 at 06:48; Status DC Insulin Human Regular 100 unit/ Sodium Chloride 101 ml @ 0 mls/hr 1X ONCE IV Last administered on 11/10/21at 00:24; Start 11/09/21 at 20:15; Stop 11/09/21 at 20:16; Status DC Labetalol HCl (Normodyne Iv Push) 10 mg 1X ONCE IVP Last administered on 11/09/21at 20:40; Start 11/09/21 at 20:15; Stop 11/09/21 at 20:16; Status DC Labetalol HCl (Normodyne Iv Push) 20 mg STK-MED ONCE IVP ; Start 11/09/21 at 20:05; Stop 11/09/21 at 20:05; Status DC Potassium Chloride (Klor-Con) 40 meq 1X ONCE PO ; Start 11/09/21 at 20:30; Sto p 11/09/21 at 20:31; Status DC Ondansetron HCl (Zofran) 4 mg PRN Q8HRS PRN IVP NAUSEA/VOMITING Last administered on 11/09/21at 23:33; Start 11/09/21 at 20:30; Stop 11/10/21 at 06:48; Status DC Labetalol HCl (Normodyne Iv Push) 10 mg 1X ONCE IVP Last administered on 11/09/21at 18:05; Start 11/09/21 at 20:30; Stop 11/09/21 at 20:31; Status DC Insulin Human Lispro (HumaLOG) 15 units 1X ONCE SQ ; Start 11/09/21 at 21:30; Stop 11/09/21 at 21:31; Status DC Sodium Chloride 1,000 ml @ 125 mls/hr Q8H IV ; Start 11/10/21 at 00:00 Dextrose/Sodium Chloride 1,000 ml @ 125 mls/hr Q8H IV ; Start 11/10/21 at 00:00 Insulin Human Regular 100 unit/ Sodium Chloride 101 ml @ 0 mls/hr CONT PRN PRN IV PER PROTOCOL; Start 11/10/21 at 00:00 Potassium Chloride/Water 100 ml @ 100 mls/hr PRN Q1HR PRN IV SEE COMMENTS Last administered on 11/10/21at 03:41; Start 11/10/21 at 00:00 Potassium Chloride/Water 100 ml @ 100 mls/hr PRN Q1HR PRN IV SEE COMMENTS; Start 11/10/21 at 00:00 Potassium Chloride/Water 100 ml @ 100 mls/hr PRN Q1HR PRN IV SEE COMMENTS; Start 11/10/21 at 00:00 Magnesium Sulfate 100 ml @ 25 mls/hr DAILY IV ; Start 11/10/21 at 09:00; Stop 11/13/21 at 08:59 Sodium Chloride 1,000 ml @ 125 mls/hr Q8H IV Last administered on 11/10/21at 00:44; Start 11/10/21 at 00:45 Dextrose/Sodium Chloride 1,000 ml @ 125 mls/hr Q8H IV Last administered on 11/10/21at 03:41; Start 11/10/21 at 03:45 Nicardipine HCl (Cardene) 50 mg STK-MED ONCE IV ; Start 11/09/21 at 21:00; Stop 11/10/21 at 04:38; Status DC Sodium Chloride (Iv Sodium Chloride 0.9% 250ml) 250 ml STK-MED ONCE .ROUTE ; Start 11/09/21 at 21:00; Stop 11/10/21 at 04:38; Status DC Sodium Chloride (Iv Sodium Chloride 0.9% 100ml) 100 ml STK-MED ONCE .ROUTE ; Start 11/09/21 at 21:00; Stop 11/10/21 at 04:38; Status DC Labetalol HCl (Normodyne Iv Push) 10 mg PRN Q10MIN PRN IVP HYPERTENSION; Start 11/10/21 at 06:45 Nicardipine HCl 50 mg/Sodium Chloride 250 ml @ 25 mls/hr CONT PRN PRN IV HYPERTENSION Last administered on 11/10/21at 07:58; Start 11/10/21 at 06:45 Acetaminophen (Tylenol) 650 mg PRN Q6HRS PRN PO MILD PAIN / TEMP > 100.3'F; Start 11/10/21 at 06:45 Acetaminophen (Tylenol Supp) 650 mg PRN Q6HRS PRN LA MILD PAIN / TEMP > 100.3'F; Start 11/10/21 at 06:45 Ondansetron HCl (Zofran) 4 mg PRN Q6HRS PRN IVP NAUSEA/VOMITING 1ST CHOICE; Start 11/10/21 at 06:45 Active Scripts Active Ondansetron Odt (Ondansetron) 4 Mg Tab.rapdis 1 Tab PO PRN Q6-8HRS PRN Isosorbide Mononitrate Er (Isosorbide Mononitrate) 30 Mg Tab.er.24h 1 Tab PO DAILY 30 Days Clonidine Hcl 0.1 Mg Tablet 0.1 Mg PO TID 30 Days Admelog (Insulin Lispro) 100 Unit/1 Ml Vial 0 Units SQ TIDBFRMEAL 30 Days Use sliding scale at home. Amlodipine Besylate 10 Mg Tablet 10 Mg PO DAILY 30 Days Carvedilol 25 Mg Tablet 25 Mg PO BIDWMEALS 30 Days Atorvastatin Calcium 40 Mg Tablet 40 Mg PO QHS 30 Days Lantus Solostar (Insulin Glargine,Hum.rec.anlog) 100 Unit/1 Ml Insuln.pen 12 Unit SQ DAILY Percocet 7.5-325 Mg Tablet (Oxycodone/Acetaminophen) 1 Each Tablet 1 Tab PO PRN Q6HRS PRN Methocarbamol 750 Mg Tablet 750 Mg PO PRN TID PRN 10 Days Baclofen 10 Mg Tablet 5 Mg PO TID PRN Renvela (Sevelamer Carbonate) 800 Mg Tablet 800 Mg PO TIDWMEALS 30 Days Reported Isosorbide Dinitrate 30 Mg Tablet 2 Tab PO DAILY 30 Days Trazodone Hcl 150 Mg Tablet 150 Mg PO HS Fish Oil 1,000 Mg Softgel ([place]-3 Fatty Acids/Fish Oil) 1 Each Capsule 1 Cap PO DAILY 30 Days Omeprazole 40 Mg Capsule.dr 1 Cap PO DAILY Zenpep 10,000 Units Capsule (Lipase/Protease/Amylase) 1 Each Capsule. 3 Cap PO TIDWMEALS Doxazosin Mesylate 4 Mg Tablet 1 Tab PO DAILY Hydralazine Hcl 100 Mg Tablet 1 Tab PO TID Aspir 81 (Aspirin) 81 Mg Tablet. 1 Tab PO DAILY Allergies Allergies: Coded Allergies: morphine (Verified Allergy, Intermediate, Itching, 09/09/21) lisinopril (Verified Adverse Reaction, Intermediate, Dry Cough, 09/09/21) Dry Cough ROS Review of System Not reliably obtained Physical Exam Physical Examination General: Well-developed, well-nourished black male in no acute distress HEENT: Normocephalic andatraumatic. Temporal arteriespulsatile and nontender. Neck: Supple without bruit, no meningismus Musculoskeletal: Stability:see neurologic. Gait exam:see neurologic. Tone:see neurologic.Strength:see neurologic. Neurological: Mental Status:orientation, memory, attention span/concentration, language, fund of knowledge: Expressive and receptive aphasia. Cranial Nerves:Pupils equal and reactive to light, extraocular movements areintact, visual thompson are full to threat. Facial sensation is normal. There is no facial asymmetry. Vestibulo- ocular reflex is intact. Palate elevates and tongue protrudes in midline. All other cranial related problems are negative except as mentioned before.Reflexes:0-1+ and symmetric with flexor plantar responses. Motor:5/5 strength with normal tone and bulk. Coordination and gait:Not tested, not cooperative. Sensory:Responds to pinprick in all 4 extremities full Vitals VITALS Vital Signs Date Time Temp Pulse Resp B/P (MAP) Pulse Ox O2 Delivery O2 Flow Rate FiO2 11/10/21 06:00 90 12 179/99 97 Room Air 11/10/21 04:00 100.0 100.0 Labs Labs Laboratory Tests Test 11/09/21 19:07 11/09/21 19:25 11/09/21 22:10 11/09/21 22:45 O2 Saturation 97 % (92-99) Arterial Blood pH 7.60 (7.35-7.45) Arterial Blood pCO2 at Patient Temp 23 mmHg (35-46) Arterial Blood pO2 at Patient Temp 82 mmHg (75-108) Arterial Blood HCO3 22 mmol/L (21-28) Arterial Blood Base Excess 1 mmol/L (-3-3) Oxyhemoglobin 96.2 % Methemoglobin 0.3 % (0.0-1.9) Carbon Monoxide, Quantitative 0.6 % (0.0-1.9) FiO2 21%/ra White Blood Count 7.3 x10^3/uL (4.0-11.0) Red Blood Count 3.89 x10^6/uL (4.30-5.70) Hemoglobin 10.8 g/dL (13.0-17.5) Hematocrit 32.4 % (39.0-53.0) Mean Corpuscular Volume 83 fL (79-100) Mean Corpuscular Hemoglobin 28 pg (25-35) Mean Corpuscular Hemoglobin Concent 33 g/dL (31-37) Red Cell Distribution Width 15.8 % (11.5-14.5) Platelet Count 250 x10^3/uL (140-400) Neutrophils (%) (Auto) 61 % (31-73) Lymphocytes (%) (Auto) 29 % (24-48) Monocytes (%) (Auto) 7 % (0-9) Eosinophils (%) (Auto) 2 % (0-3) Basophils (%) (Auto) 1 % (0-3) Neutrophils # (Auto) 4.4 x10^3/uL (1.8-7.7) Lymphocytes # (Auto) 2.1 x10^3/uL (1.0-4.8) Monocytes # (Auto) 0.5 x10^3/uL (0.0-1.1) Eosinophils # (Auto) 0.2 x10^3/uL (0.0-0.7) Basophils # (Auto) 0.1 x10^3/uL (0.0-0.2) Prothrombin Time 14.3 SEC (11.7-14.0) Prothromb Time International Ratio 1.1 (0.8-1.1) Activated Partial Thromboplast Time 32 SEC (24-38) Sodium Level 123 mmol/L (136-145) 117 mmol/L (136-145) Potassium Level 3.2 mmol/L (3.5-5.1) 3.3 mmol/L (3.5-5.1) Chloride Level 87 mmol/L (98-107) 86 mmol/L (98-107) Carbon Dioxide Level 22 mmol/L (21-32) 15 mmol/L (21-32) Anion Gap 14 (6-14) 16 (6-14) Blood Urea Nitrogen 19 mg/dL (8-26) 20 mg/dL (8-26) Creatinine 4.9 mg/dL (0.7-1.3) 4.8 mg/dL (0.7-1.3) Estimated GFR (Cockcroft-Gault) 15.0 15.4 BUN/Creatinine Ratio 4 (6-20) Glucose Level 687 mg/dL (70-99) 604 mg/dL (70-99) Calcium Level 7.9 mg/dL (8.5-10.1) 7.9 mg/dL (8.5-10.1) Total Bilirubin 0.3 mg/dL (0.2-1.0) Aspartate Amino Transf (AST/SGOT) 12 U/L (15-37) Alanine Aminotransferase (ALT/SGPT) 20 U/L (16-63) Alkaline Phosphatase 170 U/L (46-116) Troponin I High Sensitivity 19 ng/L (4-75) Total Protein 5.7 g/dL (6.4-8.2) Albumin 2.5 g/dL (3.4-5.0) Albumin/Globulin Ratio 0.8 (1.0-1.7) Acetone Level Neg (NEG) Glucose (Fingerstick) 528 mg/dL (70-99) Phosphorus Level 4.2 mg/dL (2.6-4.7) Magnesium Level 1.2 mg/dL (1.8-2.4) Test 11/10/21 01:13 11/10/21 02:17 11/10/21 03:14 11/10/21 04:18 Glucose (Fingerstick) 449 mg/dL (70-99) 307 mg/dL (70-99) 197 mg/dL (70-99) 116 mg/dL (70-99) Test 11/10/21 05:26 11/10/21 06:30 11/10/21 07:56 Glucose (Fingerstick) 100 mg/dL (70-99) 126 mg/dL (70-99) 123 mg/dL (70-99) Laboratory Tests Test 11/09/21 19:07 11/09/21 19:25 11/09/21 22:10 11/09/21 22:45 O2 Saturation 97 % (92-99) Arterial Blood pH 7.60 (7.35-7.45) Arterial Blood pCO2 at Patient Temp 23 mmHg (35-46) Arterial Blood pO2 at Patient Temp 82 mmHg (75-108) Arterial Blood HCO3 22 mmol/L (21-28) Arterial Blood Base Excess 1 mmol/L (-3-3) Oxyhemoglobin 96.2 % Methemoglobin 0.3 % (0.0-1.9) Carbon Monoxide, Quantitative 0.6 % (0.0-1.9) FiO2 21%/ra White Blood Count 7.3 x10^3/uL (4.0-11.0) Red Blood Count 3.89 x10^6/uL (4.30-5.70) Hemoglobin 10.8 g/dL (13.0-17.5) Hematocrit 32.4 % (39.0-53.0) Mean Corpuscular Volume 83 fL (79-100) Mean Corpuscular Hemoglobin 28 pg (25-35) Mean Corpuscular Hemoglobin Concent 33 g/dL (31-37) Red Cell Distribution Width 15.8 % (11.5-14.5) Platelet Count 250 x10^3/uL (140-400) Neutrophils (%) (Auto) 61 % (31-73) Lymphocytes (%) (Auto) 29 % (24-48) Monocytes (%) (Auto) 7 % (0-9) Eosinophils (%) (Auto) 2 % (0-3) Basophils (%) (Auto) 1 % (0-3) Neutrophils # (Auto) 4.4 x10^3/uL (1.8-7.7) Lymphocytes # (Auto) 2.1 x10^3/uL (1.0-4.8) Monocytes # (Auto) 0.5 x10^3/uL (0.0-1.1) Eosinophils # (Auto) 0.2 x10^3/uL (0.0-0.7) Basophils # (Auto) 0.1 x10^3/uL (0.0-0.2) Prothrombin Time 14.3 SEC (11.7-14.0) Prothromb Time International Ratio 1.1 (0.8-1.1) Activated Partial Thromboplast Time 32 SEC (24-38) Sodium Level 123 mmol/L (136-145) 117 mmol/L (136-145) Potassium Level 3.2 mmol/L (3.5-5.1) 3.3 mmol/L (3.5-5.1) Chloride Level 87 mmol/L (98-107) 86 mmol/L (98-107) Carbon Dioxide Level 22 mmol/L (21-32) 15 mmol/L (21-32) Anion Gap 14 (6-14) 16 (6-14) Blood Urea Nitrogen 19 mg/dL (8-26) 20 mg/dL (8-26) Creatinine 4.9 mg/dL (0.7-1.3) 4.8 mg/dL (0.7-1.3) Estimated GFR (Cockcroft-Gault) 15.0 15.4 BUN/Creatinine Ratio 4 (6-20) Glucose Level 687 mg/dL (70-99) 604 mg/dL (70-99) Calcium Level 7.9 mg/dL (8.5-10.1) 7.9 mg/dL (8.5-10.1) Total Bilirubin 0.3 mg/dL (0.2-1.0) Aspartate Amino Transf (AST/SGOT) 12 U/L (15-37) Alanine Aminotransferase (ALT/SGPT) 20 U/L (16-63) Alkaline Phosphatase 170 U/L (46-116) Troponin I High Sensitivity 19 ng/L (4-75) Total Protein 5.7 g/dL (6.4-8.2) Albumin 2.5 g/dL (3.4-5.0) Albumin/Globulin Ratio 0.8 (1.0-1.7) Acetone Level Neg (NEG) Glucose (Fingerstick) 528 mg/dL (70-99) Phosphorus Level 4.2 mg/dL (2.6-4.7) Magnesium Level 1.2 mg/dL (1.8-2.4) Test 11/10/21 01:13 11/10/21 02:17 11/10/21 03:14 11/10/21 04:18 Glucose (Fingerstick) 449 mg/dL (70-99) 307 mg/dL (70-99) 197 mg/dL (70-99) 116 mg/dL (70-99) Test 11/10/21 05:26 11/10/21 06:30 11/10/21 07:56 Glucose (Fingerstick) 100 mg/dL (70-99) 126 mg/dL (70-99) 123 mg/dL (70-99) Images Images CT STROKE HEAD W/O Date: 11/09/2021 6:57 PM Clinical Indication: acute aphasia Comparison: None. Technique: 5 mm axial tomographic images were obtained of the head without contrast. These were viewed on brain and bone windows. One or more of the following dose reduction techniques were utilized: Automated exposure control (AEC), Adjustment of mA and/or kV according to patient size, Use of iterative reconstruction technique such as ASiR, CT scan done according to ALARA and image gently/image wisely Findings: Mild nonspecific periventricular hypoattenuation is most consistent with chronic small vessel ischemic disease. No intra- or extra-axial mass or fluid collection. No acute hemorrhage. The ventricles are normal in size, shape, and morphology. The denis-white matter junction is normal. The subarachnoid cisterns are patent. The visualized paranasal sinuses are normal. The visualized portions of the orbits and globes are normal. The mastoid air cells are clear. The hockey scout topogram shows no lytic lesion or fracture. Impression: No acute hemorrhage or large territory denis-white loss. Assessment/Plan Assessment/Plan Impression: Clinically a small left frontal stroke with aphasia, sparing motor fibers, but also keeping in mind that this is all metabolic encephalopathy related to the diabetic ketoacidosis. History of peripheral neuropathy Recommendations: After I left, nurse called to say the patient indicated he has a headache, I did prescribe some fentanyl. He is monitored in the ICU for sedation Also needs a central line and Bob catheter, the benefits outweigh the risks of these procedures. CT angiogram MRI of the brain late today ICU monitoring Rehabilitation modalities Also see stroke orders I left a message with two of the patient's family members Thank you for letting me help with the patient's care AKIN ALEXANDER MD Nov 10, 2021 08:24
[2021-11-10] MEDS: fentaNYL PF VIAL 100 MCG/2 ML VIAL IVP PRN ×2 (08:26→11:07)
[2021-11-10] MEDS ORDERED: IOHEXOL 300 MG/ML 100ML VIAL. IV ONE (08:30)
[2021-11-10] MEDS ORDERED: CONTRAST GIVEN. MC PRN (08:45)
[2021-11-10] MEDS: LIPASE/PROTEAS/AMYLAS 10/32/42 CAPSULE.DR. PO SCH ×3 (09:00→10:06)
[2021-11-10] MEDS: DOXAZOSIN MESYLATE 4 MG TABLET. PO SCH ×2 (09:00→12:40)
[2021-11-10] MEDS: cloNIDine HCL 0.1 MG TABLET PO SCH ×5 (09:00→20:28)
--- NOTE | 2021-11-10 09:09 | PDOC2 ---
CONSULT Date of Consult Date of Consult DATE: 11/10/21 TIME: 09:08 Reason for Consult Reason for Consult: ESRD Identification/Chief Complaint Chief Complaint Unable to Obtain 2/2 CVA/Aphasia Source Source: Chart review History of Present Illness Reason for Visit: Patient is a 56-year-old AA male with a history of hypertension, hyperlipidemia, coronary artery disease status post stenting, COPD on home oxygen, insulin-dependent diabetes, end-stage renal disease on hemodialysis MWF chronic pancreatitis. Presents to the ER for evaluation of acute aphasia with onset at some time prior to arrival. Last known well was about 3 hours prior to arrival, at which time a family member left the home and reports that at that time the patient was speaking normally. Per evaluation in the ER he started speaking in short fragmentary sentences with inappropriate words. Stroke activated, Evaluated by neurology as well. There was also some receptive aphasia. His BS was over 600. He received alteplase There were no other focal findings besides the aphasia. There is no past history of stroke. No reported N/V/D. No F/C. No CP or SOB . Did not miss any dialysis treatments recently Past Medical History Cardiovascular: CAD, CHF, HTN, ND, Hyperlipidemia Pulmonary: COPD, Pneumonia (COVID), Other (Pulmonary fibrosis, sleep apnea) CENTRAL NERVOUS SYSTEM: Periperal neuropathy GI: Constipation (Diarrhea), Diverticulosis Heme/Onc: Anemia NOS, Other (MTHFR heterozygous mutation factor VIII) Hepatobiliary: Other (Pancreatitis) Psych: Addictions (Quit alcohol 2005), Other (Posttraumatic stress disorder) Rheumatologic: No pertinent hx Infectious disease: No pertinent hx Renal/: Chronic renal failure (Dialysis) Endocrine: Diabetes Past Surgical History Past Surgical History: Cholecystectomy, Tonsillectomy (Adenoidectomy), Other (Cervical, lumbar, coronary stent, pancreatic pseudocyst, removal of salivary gland) Family History Family History: Coronary Artery Disease, Diabetes, Hypertension, Kidney Disease Social History ALCOHOL: other Lives: Alone Current Problem List Problem List Problems Medical Problems: (1) Acute hypokalemia Status: Acute (2) Aphasia due to acute stroke Status: Acute (3) Hyperglycemia due to type 2 diabetes mellitus Status: Acute (4) Hypertensive urgency Status: Acute Current Medications Current Medications Current Medications Iohexol (Omnipaque 350 Mg/ml) 75 ml 1X ONCE IV ; Start 11/09/21 at 19:00; Stop 11/09/21 at 19:01; Status DC Info (CONTRAST GIVEN -- Rx MONITORING) 1 each PRN DAILY PRN MC SEE COMMENTS; Start 11/09/21 at 19:00; Stop 11/11/21 at 18:59 Sodium Chloride 250 ml @ 500 mls/hr 1X ONCE IV ; Start 11/09/21 at 19:15; Stop 11/09/21 at 19:44; Status DC Alteplase, Recombinant 5.4 ml @ 324 mls/hr 1X ONCE IV Last administered on 11/09/21at 20:20; Start 11/09/21 at 20:00; Stop 11/09/21 at 20:01; Status DC Alteplase, Recombinant 48.6 ml @ 48.6 mls/hr 1X ONCE IV Last administered on 11/09/21at 20:21; Start 11/09/21 at 20:00; Stop 11/09/21 at 20:59; Status DC Sodium Chloride 100 ml @ 100 mls/hr 1X ONCE IV Last administered on 11/09/21at 21:30; Start 11/09/21 at 20:00; Stop 11/09/21 at 20:59; Status DC Nicardipine HCl 50 mg/Sodium Chloride 250 ml @ 25 mls/hr CONT PRN PRN IV HYPERTENSION Last administered on 11/10/21at 01:36; Start 11/09/21 at 20:00; Stop 11/10/21 at 06:48; Status DC Insulin Human Regular 100 unit/ Sodium Chloride 101 ml @ 0 mls/hr 1X ONCE IV Last administered on 11/10/21at 00:24; Start 11/09/21 at 20:15; Stop 11/09/21 at 20:16; Status DC Labetalol HCl (Normodyne Iv Push) 10 mg 1X ONCE IVP Last administered on 11/09/21at 20:40; Start 11/09/21 at 20:15; Stop 11/09/21 at 20:16; Status DC Labetalol HCl (Normodyne Iv Push) 20 mg STK-MED ONCE IVP ; Start 11/09/21 at 20:05; Stop 11/09/21 at 20:05; Status DC Potassium Chloride (Klor-Con) 40 meq 1X ONCE PO ; Start 11/09/21 at 20:30; Stop 11/09/21 at 20:31; Status DC Ondansetron HCl (Zofran) 4 mg PRN Q8HRS PRN IVP NAUSEA/VOMITING Last administered on 11/09/21at 23:33; Start 11/09/21 at 20:30; Stop 11/10/21 at 06:48; Status DC Labetalol HCl (Normodyne Iv Push) 10 mg 1X ONCE IVP Last administered on 11/09/21at 18:05; Start 11/09/21 at 20:30; Stop 11/09/21 at 20:31; Status DC Insulin Human Lispro (HumaLOG) 15 units 1X ONCE SQ ; Start 11/09/21 at 21:30; Stop 11/09/21 at 21:31; Status DC Sodium Chloride 1,000 ml @ 125 mls/hr Q8H IV ; Start 11/10/21 at 00:00 Dextrose/Sodium Chloride 1,000 ml @ 125 mls/hr Q8H IV ; Start 11/10/21 at 00:00 Insulin Human Regular 100 unit/ Sodium Chloride 101 ml @ 0 mls/hr CONT PRN PRN IV PER PROTOCOL; Start 11/10/21 at 00:00 Potassium Chloride/Water 100 ml @ 100 mls/hr PRN Q1HR PRN IV SEE COMMENTS Last administered on 11/10/21at 03:41; Start 11/10/21 at 00:00 Potassium Chloride/Water 100 ml @ 100 mls/hr PRN Q1HR PRN IV SEE COMMENTS; Start 11/10/21 at 00:00 Potassium Chloride/Water 100 ml @ 100 mls/hr PRN Q1HR PRN IV SEE COMMENTS; Start 11/10/21 at 00:00 Magnesium Sulfate 100 ml @ 25 mls/hr DAILY IV ; Start 11/10/21 at 09:00; Stop 11/13/21 at 08:59 Sodium Chloride 1,000 ml @ 125 mls/hr Q8H IV Last administered on 11/10/21at 00:44; Start 11/10/21 at 00:45 Dextrose/Sodium Chloride 1,000 ml @ 125 mls/hr Q8H IV Last administered on 11/10/21at 03:41; Start 11/10/21 at 03:45 Nicardipine HCl (Cardene) 50 mg STK-MED ONCE IV ; Start 11/09/21 at 21:00; Stop 11/10/21 at 04:38; Status DC Sodium Chloride (Iv Sodium Chloride 0.9% 250ml) 250 ml STK-MED ONCE .ROUTE ; Start 11/09/21 at 21:00; Stop 11/10/21 at 04:38; Status DC Sodium Chloride (Iv Sodium Chloride 0.9% 100ml) 100 ml STK-MED ONCE .ROUTE ; Start 11/09/21 at 21:00; Stop 11/10/21 at 04:38; Status DC Labetalol HCl (Normodyne Iv Push) 10 mg PRN Q10MIN PRN IVP HYPERTENSION; Start 11/10/21 at 06:45 Nicardipine HCl 50 mg/Sodium Chloride 250 ml @ 25 mls/hr CONT PRN PRN IV HYPERTENSION Last administered on 11/10/21at 07:58; Start 11/10/21 at 06:45 Acetaminophen (Tylenol) 650 mg PRN Q6HRS PRN PO MILD PAIN / TEMP > 100.3'F; Start 11/10/21 at 06:45; Status Cancel Acetaminophen (Tylenol Supp) 650 mg PRN Q6HRS PRN AR MILD PAIN / TEMP > 100.3'F; Start 11/10/21 at 06:45 Ondansetron HCl (Zofran) 4 mg PRN Q6HRS PRN IVP NAUSEA/VOMITING 1ST CHOICE Last administered on 11/10/21at 08:19; Start 11/10/21 at 06:45 Fentanyl Citrate (Fentanyl 2ml Vial) 50 mcg PRN Q2HR PRN IVP PAIN Last administered on 11/10/21at 08:26; Start 11/10/21 at 08:30 Iohexol (Omnipaque 300 Mg/ml) 75 ml 1X ONCE IV Last administered on 11/10/21at 08:56; Start 11/10/21 at 08:30; Stop 11/10/21 at 08:31; Status DC Info (CONTRAST GIVEN -- Rx MONITORING) 1 each PRN DAILY PRN MC SEE COMMENTS; Start 11/10/21 at 08:45; Stop 11/12/21 at 08:44 Amlodipine Besylate (Norvasc) 10 mg DAILY PO ; Start 11/10/21 at 09:00 Atorvastatin Calcium (Lipitor) 40 mg QHS PO ; Start 11/10/21 at 21:00 Clonidine HCl (Catapres) 0.1 mg TID PO ; Start 11/10/21 at 09:00 Doxazosin Mesylate (Cardura) 4 mg DAILY PO ; Start 11/10/21 at 09:00 Amylase/Lipase/ Protease (Zenpep 10,000) 3 cap TIDWMEALS PO ; Start 11/10/21 at 09:00 Methocarbamol (Robaxin) 750 mg PRN TID PRN PO MUSCLE SPASMS; Start 11/10/21 at 09:00 Ondansetron HCl (Zofran Odt) 4 mg TID PRN PO NAUSEA; Start 11/10/21 at 09:00 Oxycodone/ Acetaminophen (Percocet 7.5/ 325) 1 tab PRN Q6HRS PRN PO PAIN; Start 11/10/21 at 09:00 Sevelamer Carbonate (Renvela) 800 mg TIDWMEALS PO ; Start 11/10/21 at 09:30 Carvedilol (Coreg) 25 mg BIDWMEALS PO ; Start 11/10/21 at 09:30 Hydralazine HCl (Apresoline) 100 mg TID PO ; Start 11/10/21 at 09:30 Isosorbide Mononitrate (Imdur) 60 mg DAILY PO ; Start 11/10/21 at 09:30 Pantoprazole Sodium (Protonix) 40 mg DAILYAC PO ; Start 11/10/21 at 09:30 Trazodone HCl (Desyrel) 150 mg HS PO ; Start 11/10/21 at 21:00 Acetaminophen (Tylenol) 650 mg PRN Q6HRS PRN PO MILD PAIN / TEMP > 100.3'F; Start 11/10/21 at 09:00 Active Scripts Active Ondansetron Odt (Ondansetron) 4 Mg Tab.rapdis 1 Tab PO PRN Q6-8HRS PRN Isosorbide Mononitrate Er (Isosorbide Mononitrate) 30 Mg Tab.er.24h 1 Tab PO DAILY 30 Days Clonidine Hcl 0.1 Mg Tablet 0.1 Mg PO TID 30 Days Admelog (Insulin Lispro) 100 Unit/1 Ml Vial 0 Units SQ TIDBFRMEAL 30 Days Use sliding scale at home. Amlodipine Besylate 10 Mg Tablet 10 Mg PO DAILY 30 Days Carvedilol 25 Mg Tablet 25 Mg PO BIDWMEALS 30 Days Atorvastatin Calcium 40 Mg Tablet 40 Mg PO QHS 30 Days Lantus Solostar (Insulin Glargine,Hum.rec.anlog) 100 Unit/1 Ml Insuln.pen 12 Unit SQ DAILY Percocet 7.5-325 Mg Tablet (Oxycodone/Acetaminophen) 1 Each Tablet 1 Tab PO PRN Q6HRS PRN Methocarbamol 750 Mg Tablet 750 Mg PO PRN TID PRN 10 Days Baclofen 10 Mg Tablet 5 Mg PO TID PRN Renvela (Sevelamer Carbonate) 800 Mg Tablet 800 Mg PO TIDWMEALS 30 Days Reported Isosorbide Dinitrate 30 Mg Tablet 2 Tab PO DAILY 30 Days Trazodone Hcl 150 Mg Tablet 150 Mg PO HS Fish Oil 1,000 Mg Softgel ([place]-3 Fatty Acids/Fish Oil) 1 Each Capsule 1 Cap PO DAILY 30 Days Omeprazole 40 Mg Capsule.dr 1 Cap PO DAILY Zenpep Dr 10,000 Units Capsule (Lipase/Protease/Amylase) 1 Each Capsule.dr 3 Cap PO TIDWMEALS Doxazosin Mesylate 4 Mg Tablet 1 Tab PO DAILY Hydralazine Hcl 100 Mg Tablet 1 Tab PO TID Aspir 81 (Aspirin) 81 Mg Tablet.dr 1 Tab PO DAILY Allergies Allergies: Coded Allergies: morphine (Verified Allergy, Intermediate, Itching, 09/09/21) lisinopril (Verified Adverse Reaction, Intermediate, Dry Cough, 09/09/21) Dry Cough ROS Review of System As per HPI, Unable to Obtain details 2/2 clinical condition Physical Exam Physical Exam General: NAD , Lying in bed HEENT:Normocephalic andatraumatic. OM moist Neck:Supple without bruit, no meningismus Lungs CTA , Non labored CV S1S2 Abd Soft, NT , BS + Integum- No Rash Ext No LE edema Neuro- Details Per Neurologist exam- Expressive and receptive aphasia. No Bob, No SP pr CVA tenderness Vital Signs Vital Signs Date Time Temp Pulse Resp B/P (MAP) Pulse Ox O2 Delivery O2 Flow Rate FiO2 11/10/21 08:26 97 Room Air 11/10/21 06:00 90 12 179/99 11/10/21 04:00 100.0 100.0 Assessment & Plan ESRD On HD MWF , Dialyzed on Sat, No missed treatments. Dialysis today, Discussed treatment plan with PRANAY Acute cerebrovascular accident with aphasia, status post TPA treatment . CTA pending Acute hypertensive crisis- Renal Doppler in Aug 2019, No e/o JOSELYN . On multiple meds including . Card manages Diabetic ketoacidosis. HypoNatremia- Chronic. History of severe Apr 2021 Na to 118 . Na improved since we dced Mirtazipine . Corrected Sodium currently 128. 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 Coronary artery disease with history of stent placement. Chronic hypoxic respiratory failure, on oxygen by nasal cannula 2 liters per minute. Chronic obstructive pulmonary disease. History of prostate cancer.s/p Radiation treatment Hx of COVID 19 Pneumonia Chronic pancreatitis. Labs Labs Laboratory Tests Test 11/09/21 19:07 11/09/21 19:25 11/09/21 22:10 11/09/21 22:45 O2 Saturation 97 % (92-99) Arterial Blood pH 7.60 (7.35-7.45) Arterial Blood pCO2 at Patient Temp 23 mmHg (35-46) Arterial Blood pO2 at Patient Temp 82 mmHg (75-108) Arterial Blood HCO3 22 mmol/L (21-28) Arterial Blood Base Excess 1 mmol/L (-3-3) Oxyhemoglobin 96.2 % Methemoglobin 0.3 % (0.0-1.9) Carbon Monoxide, Quantitative 0.6 % (0.0-1.9) FiO2 21%/ra White Blood Count 7.3 x10^3/uL (4.0-11.0) Red Blood Count 3.89 x10^6/uL (4.30-5.70) Hemoglobin 10.8 g/dL (13.0-17.5) Hematocrit 32.4 % (39.0-53.0) Mean Corpuscular Volume 83 fL (79-100) Mean Corpuscular Hemoglobin 28 pg (25-35) Mean Corpuscular Hemoglobin Concent 33 g/dL (31-37) Red Cell Distribution Width 15.8 % (11.5-14.5) Platelet Count 250 x10^3/uL (140-400) Neutrophils (%) (Auto) 61 % (31-73) Lymphocytes (%) (Auto) 29 % (24-48) Monocytes (%) (Auto) 7 % (0-9) Eosinophils (%) (Auto) 2 % (0-3) Basophils (%) (Auto) 1 % (0-3) Neutrophils # (Auto) 4.4 x10^3/uL (1.8-7.7) Lymphocytes # (Auto) 2.1 x10^3/uL (1.0-4.8) Monocytes # (Auto) 0.5 x10^3/uL (0.0-1.1) Eosinophils # (Auto) 0.2 x10^3/uL (0.0-0.7) Basophils # (Auto) 0.1 x10^3/uL (0.0-0.2) Prothrombin Time 14.3 SEC (11.7-14.0) Prothromb Time International Ratio 1.1 (0.8-1.1) Activated Partial Thromboplast Time 32 SEC (24-38) Sodium Level 123 mmol/L (136-145) 117 mmol/L (136-145) Potassium Level 3.2 mmol/L (3.5-5.1) 3.3 mmol/L (3.5-5.1) Chloride Level 87 mmol/L (98-107) 86 mmol/L (98-107) Carbon Dioxide Level 22 mmol/L (21-32) 15 mmol/L (21-32) Anion Gap 14 (6-14) 16 (6-14) Blood Urea Nitrogen 19 mg/dL (8-26) 20 mg/dL (8-26) Creatinine 4.9 mg/dL (0.7-1.3) 4.8 mg/dL (0.7-1.3) Estimated GFR (Cockcroft-Gault) 15.0 15.4 BUN/Creatinine Ratio 4 (6-20) Glucose Level 687 mg/dL (70-99) 604 mg/dL (70-99) Calcium Level 7.9 mg/dL (8.5-10.1) 7.9 mg/dL (8.5-10.1) Total Bilirubin 0.3 mg/dL (0.2-1.0) Aspartate Amino Transf (AST/SGOT) 12 U/L (15-37) Alanine Aminotransferase (ALT/SGPT) 20 U/L (16-63) Alkaline Phosphatase 170 U/L (46-116) Troponin I High Sensitivity 19 ng/L (4-75) Total Protein 5.7 g/dL (6.4-8.2) Albumin 2.5 g/dL (3.4-5.0) Albumin/Globulin Ratio 0.8 (1.0-1.7) Acetone Level Neg (NEG) Glucose (Fingerstick) 528 mg/dL (70-99) Phosphorus Level 4.2 mg/dL (2.6-4.7) Magnesium Level 1.2 mg/dL (1.8-2.4) Test 11/10/21 01:13 11/10/21 02:17 11/10/21 03:14 11/10/21 04:18 Glucose (Fingerstick) 449 mg/dL (70-99) 307 mg/dL (70-99) 197 mg/dL (70-99) 116 mg/dL (70-99) Test 11/10/21 05:26 11/10/21 06:30 11/10/21 07:56 Glucose (Fingerstick) 100 mg/dL (70-99) 126 mg/dL (70-99) 123 mg/dL (70-99) Laboratory Tests Test 11/09/21 19:07 11/09/21 19:25 11/09/21 22:10 11/09/21 22:45 O2 Saturation 97 % (92-99) Arterial Blood pH 7.60 (7.35-7.45) Arterial Blood pCO2 at Patient Temp 23 mmHg (35-46) Arterial Blood pO2 at Patient Temp 82 mmHg (75-108) Arterial Blood HCO3 22 mmol/L (21-28) Arterial Blood Base Excess 1 mmol/L (-3-3) Oxyhemoglobin 96.2 % Methemoglobin 0.3 % (0.0-1.9) Carbon Monoxide, Quantitative 0.6 % (0.0-1.9) FiO2 21%/ra White Blood Count 7.3 x10^3/uL (4.0-11.0) Red Blood Count 3.89 x10^6/uL (4.30-5.70) Hemoglobin 10.8 g/dL (13.0-17.5) Hematocrit 32.4 % (39.0-53.0) Mean Corpuscular Volume 83 fL (79-100) Mean Corpuscular Hemoglobin 28 pg (25-35) Mean Corpuscular Hemoglobin Concent 33 g/dL (31-37) Red Cell Distribution Width 15.8 % (11.5-14.5) Platelet Count 250 x10^3/uL (140-400) Neutrophils (%) (Auto) 61 % (31-73) Lymphocytes (%) (Auto) 29 % (24-48) Monocytes (%) (Auto) 7 % (0-9) Eosinophils (%) (Auto) 2 % (0-3) Basophils (%) (Auto) 1 % (0-3) Neutrophils # (Auto) 4.4 x10^3/uL (1.8-7.7) Lymphocytes # (Auto) 2.1 x10^3/uL (1.0-4.8) Monocytes # (Auto) 0.5 x10^3/uL (0.0-1.1) Eosinophils # (Auto) 0.2 x10^3/uL (0.0-0.7) Basophils # (Auto) 0.1 x10^3/uL (0.0-0.2) Prothrombin Time 14.3 SEC (11.7-14.0) Prothromb Time International Ratio 1.1 (0.8-1.1) Activated Partial Thromboplast Time 32 SEC (24-38) Sodium Level 123 mmol/L (136-145) 117 mmol/L (136-145) Potassium Level 3.2 mmol/L (3.5-5.1) 3.3 mmol/L (3.5-5.1) Chloride Level 87 mmol/L (98-107) 86 mmol/L (98-107) Carbon Dioxide Level 22 mmol/L (21-32) 15 mmol/L (21-32) Anion Gap 14 (6-14) 16 (6-14) Blood Urea Nitrogen 19 mg/dL (8-26) 20 mg/dL (8-26) Creatinine 4.9 mg/dL (0.7-1.3) 4.8 mg/dL (0.7-1.3) Estimated GFR (Cockcroft-Gault) 15.0 15.4 BUN/Creatinine Ratio 4 (6-20) Glucose Level 687 mg/dL (70-99) 604 mg/dL (70-99) Calcium Level 7.9 mg/dL (8.5-10.1) 7.9 mg/dL (8.5-10.1) Total Bilirubin 0.3 mg/dL (0.2-1.0) Aspartate Amino Transf (AST/SGOT) 12 U/L (15-37) Alanine Aminotransferase (ALT/SGPT) 20 U/L (16-63) Alkaline Phosphatase 170 U/L (46-116) Troponin I High Sensitivity 19 ng/L (4-75) Total Protein 5.7 g/dL (6.4-8.2) Albumin 2.5 g/dL (3.4-5.0) Albumin/Globulin Ratio 0.8 (1.0-1.7) Acetone Level Neg (NEG) Glucose (Fingerstick) 528 mg/dL (70-99) Phosphorus Level 4.2 mg/dL (2.6-4.7) Magnesium Level 1.2 mg/dL (1.8-2.4) Test 11/10/21 01:13 11/10/21 02:17 11/10/21 03:14 11/10/21 04:18 Glucose (Fingerstick) 449 mg/dL (70-99) 307 mg/dL (70-99) 197 mg/dL (70-99) 116 mg/dL (70-99) Test 11/10/21 05:26 11/10/21 06:30 11/10/21 07:56 Glucose (Fingerstick) 100 mg/dL (70-99) 126 mg/dL (70-99) 123 mg/dL (70-99) Review All relevant outside records, renal labs, imaging studies, telemetry/EKG's were reviewed. Images Images lory AP view of the chest. Comparison: 11/09/2021. Indication: Line placement Findings: New right internal jugular central line is seen with the tip in the SVC right atrial junction. Cervical fusion hardware is partially identified. The heart is enlarged but stable. There is no pneumothorax or effusion. No air space or interstitial disease. Impression: 1. No acute cardiopulmonary process. 2. Right internal jugular central line in good position. CARLO CHAUHAN MD Nov 10, 2021 09:09
[2021-11-10] MEDS: MAGNESIUM SULFATE 4GM 100 ML IV SCH (09:17)
[2021-11-10] MEDS: CARVEDILOL 12.5 MG TABLET. PO SCH ×4 (09:30→16:59)
[2021-11-10] MEDS: ISOSORBIDE MONONITRATE ER 30 MG TAB.ER.24H PO SCH ×2 (09:30→12:42)
[2021-11-10] MEDS ORDERED: PANTOPRAZOLE 40 MG TABLET.DR. PO SCH (09:30)
[2021-11-10] MEDS: SEVELAMER CARBONATE 800 MG TABLET. PO SCH ×3 (09:30→10:06)
--- NOTE | 2021-11-10 09:30 | RAD ---
EXAM: CTA HEAD AND NECK W/WO CONTRAST DATE: 11/10/2021 8:55 AM INDICATION: acute aphasia TECHNIQUE: CTA angiogram of the head and neck was obtained after IV bolus administration of 75 cc of Omnipaque 300. The images were sent to workstation and multiplanar reconstructions were obtained. Mu ltiplanar reconstruction images to include MIP and 3-D reconstruction images are submitted. One or more of the following dose reduction techniques were utilized: Automated exposure control (AEC ), Adjustment of mA and/or kV according to patient size, Use of iterative reconstruction technique diaz ch as ASiR, CT scan done according to ALARA and image gently/image wisely COMPARISON: Noncontrast CT head done the previous day. FINDINGS: Image quality is degraded by significant motion artifact and evaluation of vessels in some locations is nondiagnostic, particularly at the skull base. CTA Head: The visualized distal internal carotid arteries, anterior and middle cerebral arteries are patent and normal caliber. The distal vertebral arteries are poorly evaluated due to motion. The basilar artery , and posterior cerebral arteries are patent and normal caliber. No aneurysm or arteriovenous malform ation is seen. CTA Neck: Right carotid: The right common carotid artery is patent and normal caliber. Atherosclerosis of the c arotid bifurcation. No stenosis of the right internal carotid artery per NASCET criteria. The right e xternal carotid artery is patent. Left carotid: The left common carotid artery is patent and normal caliber. Atherosclerosis of the car otid bifurcation. No stenosis of the left internal carotid artery per NASCET criteria. The left exter nal carotid artery is patent. Right vertebral: The right vertebral artery is patent and normal caliber. Left vertebral: The left vertebral artery is patent and normal caliber. The visualized portions of the aortic arch are normal. The origins of the brachiocephalic and subclav eliz arteries are normal. No cervical lymphadenopathy. The thyroid gland is normal. The parotid and submandibular glands are no rmal. The visualized aerodigestive tract is unremarkable. Mild multilevel degenerative disc height loss. Multilevel disc protrusions and marginal osteophytes r esults in multilevel spinal canal stenosis. Multilevel uncovertebral and facet arthrosis with multile kishan neural foraminal narrowing. Posterior decompression and posterior instrumentation at C3-C6. Centrilobular emphysema in the visualized lung apices. IMPRESSION: Image quality is degraded by significant motion artifact and evaluation of vessels in some locations is nondiagnostic, particularly at the skull base. 1. Allowing for this, no intracranial large vessel occlusion. 2. No stenosis of the cervical carotid or vertebral arteries, although not well evaluated at the skul l base. RS Compliance Statement - Stenosis calculations for CT, MR and conventional angiography are based u ayala measurement of the distal ICA diameter in accordance with the NASCET methodology. Electronically signed by: Nathaniel Cantrell MD (11/10/2021 9:27 AM) [id number]
--- NOTE | 2021-11-10 09:36 | PDOC ---
Provider Note Date of Service: DATE: 11/10/21 TIME: 09:36 Provider Note H&P [id number] Justifications for Admission Other Justification TRINA ALDANA MD Nov 10, 2021 09:36
--- NOTE | 2021-11-10 10:28 | RAD ---
Single AP view of the chest. Comparison: 11/09/2021. Indication: Line placement Findings: New right internal jugular central line is seen with the tip in the SVC right atrial junction. Cervic al fusion hardware is partially identified. The heart is enlarged but stable. There is no pneumothor ax or effusion. No air space or interstitial disease. Impression: 1. No acute cardiopulmonary process. 2. Right internal jugular central line in good position. Electronically signed by: Tomer Alfaro MD (11/10/2021 10:25 AM) [id number]
--- NOTE | 2021-11-10 10:28 | HP ---
DATE OF SERVICE: 11/10/2021 ADMIT DATE: 11/09/2021 HISTORY OF PRESENT ILLNESS: This is a 56-year-old male who has a history of diabetes mellitus with diabetic nephropathy, neuropathy, COPD with end-stage renal disease, on hemodialysis with uncontrolled hypertension and chronic respiratory failure, on oxygen by nasal cannula 2 liters per minute, was noted to have acute aphasia and was admitted to the hospital. Prior to admission to the hospital 3 hours ago, he was normal. Because of the acute aphasia, Dr. Garner was consulted and the patient was given TPA. CT scan of head revealed small vessel ischemic disease. CT angiogram and MRI has been ordered. The patient was also noted to have a high blood sugar with initial reading of 687. Sodium was 123, potassium 3.2, BUN 19, creatinine 4.9, AST 12, ALT 20, albumin 2.5. Anion gap was 14 initially and CO2 was 22. The patient also was running a low-grade fever. WBC count was 7.3, hemoglobin 10.8. Acetone level was negative. INR 1.1. Chest x-ray, chronic interstitial changes. Because of the acute CVA and possibility of DKA, the patient was admitted for further evaluation and management. SYSTEMS REVIEW: At present time, the patient denies any pain. He did have headaches last night. He has difficulty communicating because of the aphasia and unable to do full systems review. He denies any dyspnea. 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 SURGICAL HISTORY: Includes lumbar diskectomy in 2008, cholecystectomy in 2008. Treatment for pancreatic pseudocyst that was removed in 2001 and again had lumbar microsurgery in 09/2017, cardiac stent placement and removal of salivary gland. He had a posterior cervical hemilaminectomy C5-C6 and C6-C7 and cervical laminectomy C3-C4, C4-C5 and posterior instrumentation and fusion of the C3-C4 and C4-C5 in 06/2021. SOCIAL HISTORY: Smokes at least 1 pack per day for over 30 years. Past history of alcoholism, quit drinking alcohol more than 10 years ago. No history of drug abuse. MEDICATIONS: Reviewed and reconciled. FAMILY HISTORY: Positive for cancer, diabetes, hypertension, heart disease. PHYSICAL EXAMINATION: GENERAL: The patient is a middle-aged male who is alert, appears to be oriented, but unable to assess fully because of the aphasia. He is not in acute distress, chronically ill. EYES: Pupils reactive to light. Conjunctivae pale. Sclerae muddy. HENT: Unremarkable. NECK: Supple. JVP normal. No thyromegaly. Trachea midline. LUNGS: Clear with decreased breath sounds at bases. CARDIOVASCULAR SYSTEM: S1, S2, regular. ABDOMEN: Soft, nontender, no guarding, no rigidity. Bowel sounds present. EXTREMITIES: No edema. CENTRAL NERVOUS SYSTEM: Alert, but aphasic, has difficulty communicating. Moves all extremities. LABORATORY: Lab findings as noted earlier. IMPRESSION: 1. Acute cerebrovascular accident with aphasia, status post TPA treatment. 2. Acute hypertensive crisis. 3. Diabetic ketoacidosis. 4. Fever, etiology not clear. 5. End-stage renal disease, on hemodialysis. 6. 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 7. Osteoarthritis, status post neck surgery and lumbar surgery and chronic pain. 8. Gastroesophageal reflux disease. 9. Coronary artery disease with history of stent placement. 10. Chronic hypoxic respiratory failure, on oxygen by nasal cannula 2 liters per minute. 11. Chronic obstructive pulmonary disease. 14. Mixed hyperlipidemia. 15. Chronic pancreatitis. 16. Anemia. 17. Physical deconditioning. 18. Cervical spinal stenosis and cervical radiculopathy with several neck surgeries. PLAN: 1. Acute CVA. The patient had TPA. Consulted Dr. Garner. Awaiting MRI and CT angiogram. 2. Diabetes mellitus with very high sugars. He is not hypoglycemic. Anion gap is getting worse, so he was treated with insulin, but he is stable and the blood sugars are stable and I will discontinue insulin drip and put him on sliding scale insulin. Hold Lantus for now, but will add if he starts eating. 3. End-stage renal disease, on hemodialysis. Consult Dr. Garcia for Nephrology evaluation and management. 4. Fever, etiology not clear. Order urinalysis and culture. Chest x-ray is negative. Order blood cultures. Consult Dr. Aguilar for Infectious Disease evaluation and management. 5. Consult PT, OT, speech therapy evaluation and management. 6. Hypertensive crisis. Continue Cardene drip. Consult cardiology. For details, please refer to the orders. Long-term as well as short-term prognosis of this patient is very poor due to his multiple medical problems. For details, please refer to the orders. ALLI DR: David TID: [id number]
[2021-11-10 10:38] LABS: HYALINE CASTS, URINE OCCASIONAL /HPF
[2021-11-10 10:39] LABS: BACTERIA,URINE 0 /HPF (0-FEW)
[2021-11-10] MEDS ORDERED: PROCHLORPERAZINE 10 MG/2 ML VIAL. IV PRN (11:15)
[2021-11-10 11:19] LABS: BASO % 0 % (0-3); EOS % 0 % (0-3); HEMATOCRIT 34.2 % (39.0-53.0); HEMOGLOBIN 11.4 g/dL (13.0-17.5); LYMPH # 2.2 x10^3/uL (1.0-4.8); LYMPH % 13 % (24-48); MEAN CORPUSCULAR HEMOGLOBIN 27 pg (25-35); MEAN CORPUSCULAR HGB CONC 33 g/dL (31-37); MEAN CORPUSCULAR VOLUME 81 fL (79-100); MONO # 1.3 x10^3/uL (0.0-1.1); MONO % 8 % (0-9); NEUT # 12.6 x10^3/uL (1.8-7.7); NEUT % 78 % (31-73); PLATELET COUNT 299 x10^3/uL (140-400); RED BLOOD COUNT 4.21 x10^6/uL (4.30-5.70); RED CELL DISTRIBUTION WIDTH 15.7 % (11.5-14.5); WHITE BLOOD COUNT 16.1 x10^3/uL (4.0-11.0)
[2021-11-10 11:20] LABS: CALCIUM 8.1 mg/dL (8.5-10.1); CREATININE 5.1 mg/dL (0.7-1.3); GFR 14.3; MAGNESIUM 2.6 mg/dL (1.8-2.4); PHOSPHORUS 2.6 mg/dL (2.6-4.7)
[2021-11-10 11:25] LABS: CHOLESTEROL/HDL RATIO 1.6
[2021-11-10 11:28] LABS: POTASSIUM 2.3 mmol/L (3.5-5.1)
[2021-11-10] MEDS: INSULIN LISPRO 300 UNITS/3 ML VIAL. SQ SCH ×2 (11:30→16:47)
[2021-11-10] MEDS: CEFEPIME HCL IV Push 1 GM VIAL. IVP SCH (11:44)
--- NOTE | 2021-11-10 12:13 | RAD ---
Procedure: Central line placement at the bedside Clinical Indication: Adult male requiring central venous access Sedation: Local anesthesia only Antibiotics: None Fluoro Time: Not applicable Contrast: None Sterility: All elements of maximal sterile barrier technique including the use of a cap, mask, steril e gown, sterile gloves, large sterile sheet, appropriate hand hygiene, and 2% chlorhexidine for cutan eous antisepsis (or acceptable alternative antiseptic per current guidelines) were followed for this procedure. Consent: The procedure was explained in its entirety to the patient or the patients designated repres entative by a member of the treatment team, including a discussion of the risks, benefits and commonl y accepted alternatives to the procedure, as well as the expected consequences of no therapy whatsoev er. Discussion of the risks included, but was not limited to, those that are most frequent and thos e that are rare but possibly severe or life-threatening, as well as the possibility of unforeseen com plications. Technique and Findings: Following informed consent, the patient was prepped and draped in the usual s terile fashion. Ultrasound interrogation of the right neck revealed patency and compressibility of t he right internal jugular vein. A hardcopy ultrasound image was recorded. A 21-gauge micropuncture n eedle was used to gain access to this vein after local anesthesia was achieved with 1% Lidocaine. Th e needle was exchanged over the wire for a small dilator followed by a triple lumen central line. Al l 3 lumens flushed and aspirated with ease. The catheter was sutured to the skin and a chest x-ray w as obtained to assess for line position. Complications: None Impression: 1. Central venous catheter placement as described. Electronically signed by: Chris Neal MD (11/10/2021 12:10 PM) [id number]
--- NOTE | 2021-11-10 12:23 | CONS ---
DATE OF CONSULTATION: 11/10/2021 REQUESTING PHYSICIAN: Dr. Valadez. REASON FOR CONSULTATION: Fever and altered mental status. HISTORY OF PRESENT ILLNESS: This is a 56-year-old gentleman who normally is functioning and goes to dialysis, etc. The patient came in with stroke-like symptoms. The patient was altered, unable to communicate, keeps repeating one word or 2, which is not understandable. The patient was found to have cerebrovascular accident and he did receive TPA. The patient also has hyperglycemia accelerated to malignant hypertension and now running fevers, hence consultation. The patient is not on any antibiotics. The patient again is not able to provide any information. The patient is nauseous, vomited just now, unable to convey or it seems like he is complaining of headache, but it is difficult to understand. No diarrhea. Unable to say chest pain or abdominal pain. PAST MEDICAL HISTORY: Positive for end-stage renal disease on hemodialysis; diabetes mellitus, hypertension, gastroesophageal reflux disease, neuropathy, nephropathy, hyperlipidemia, coronary artery disease, history of pancreatitis, COPD, has had COVID last year. SOCIAL HISTORY: The patient has had lumbar surgery, cholecystectomy, coronary stenting done. SOCIAL HISTORY: Positive for smoking. Does have history of alcohol abuse, but no longer drinks and no drug use. ALLERGIES: ALLERGIC TO MORPHINE AND LISINOPRIL. CURRENT MEDICATIONS: Reviewed. REVIEW OF SYSTEMS: As in HPI. All other systems reviewed and are negative. The patient is not able to provide, only done through the RN. PHYSICAL EXAMINATION: GENERAL: Awake gentleman who mumbles one word repeatedly, unable to understand, not in distress. VITAL SIGNS: Temperature 100.8, pulse 106, respirations 21, blood pressure 153/69. Blood pressure has been as high as 248/72. HEENT: Both pupils are round and reacting. No conjunctival lesion. No oral lesion. NECK: Supple, no JVP, no lymphadenopathy. LUNGS: Clear. HEART: S1, S2, regular. ABDOMEN: Soft, nontender, no organomegaly. EXTREMITIES: No edema, cyanosis. SKIN: Unremarkable. NEUROLOGIC: The patient is encephalopathic, does move all the extremities. LABORATORY DATA: White count is normal, platelets are normal. BUN and creatinine is 20 and 4.8, glucose is 604. Sodium is 117, acetone is negative. Urinalysis is unremarkable for infection. I just ordered blood cultures. IMAGING: Chest x-ray is unremarkable for any acute changes. CT angiogram done was unremarkable and a CT of the head, no acute hemorrhage or large territory denis-white matter loss. IMPRESSION: 1. Fever. 2. Encephalopathy, suspected to have a stroke. 3. Hypertensive crisis. 4. Diabetes. 5. End-stage renal disease, on hemodialysis. 6. Hypertension. RECOMMENDATIONS: We will get blood cultures done and start him on vancomycin and cefepime empiric until more information is available. The patient is a dialysis patient, high risk for infection. Supportive care and we will continue to follow. Thank you very much, Dr. Valadez, for giving me opportunity to participate in this patient's care. ZOE/VARINDER DR: Kt TID: [id number]
[2021-11-10] MEDS: POTASSIUM CHLORIDE 10MEQ 100 ML IV SCH ×6 (12:50→18:00)
--- NOTE | 2021-11-10 12:52 | PDOC2 ---
MARÍA BURNS ROUTE SUPERVISOR 11/10/21 1252: CARDIAC CONSULT DATE OF CONSULT Date of Consult DATE: 11/10/21 TIME: 12:39 REASON FOR CONSULT Reason for Consult: Hypertensive crisis SOURCE Source: Chart review, Patient HISTORY OF PRESENT ILLNESS HISTORY OF PRESENT ILLNESS This is a 56 yo male admitted for complains of aphasia and suspected stroke. He then received tPA last night. His speech improved but currently nauseated and not in the position to provide me with details as he is currently dry heaving. No chest pain but noted with coffee ground stain in the kuhn. Denies chest pain or SOA. Consult is for uncontrolled HTN and presently on cardene. PAST MEDICAL HISTORY Past Medical History Cardiovascular: CAD, HTN, Hyperlipidemia Pulmonary: COPD, Covid-19 PNA GI: GERD, Other Heme/Onc: Anemia NOS, Cancer, Other Hepatobiliary: Other Psych: Anxiety, Other Rheumatologic: No pertinent hx Infectious disease: No pertinent hx Renal/: Chronic renal insuff Endocrine: Diabetes PAST SURGICAL HISTORY Past Surgical History Cholecystectomy, Tonsillectomy, Other (Coronary stenting) FAMILY HISTORY Family History Coronary Artery Disease, Diabetes, Hypertension, Kidney Disease SOCIAL HISTORY Social History SMOKE: <quit ALCOHOL: none Drugs: None Lives: Alone CURRENT MEDICATIONS CURRENT MEDICATIONS Current Medications Medications (Trade) Dose Ordered Sig/Ravinder Route PRN Reason Start Time Stop Time Status Last Admin Dose Admin Alteplase, Recombinant 5.4 ml @ 324 mls/hr 1X ONCE IV 11/09/21 20:00 11/09/21 20:01 DC 11/09/21 20:20 Alteplase, Recombinant 48.6 ml @ 48.6 mls/hr 1X ONCE IV 11/09/21 20:00 11/09/21 20:59 DC 11/09/21 20:21 Sodium Chloride 100 ml @ 100 mls/hr 1X ONCE IV 11/09/21 20:00 11/09/21 20:59 DC 11/09/21 21:30 Nicardipine HCl 50 mg/Sodium Chloride 250 ml @ 25 mls/hr CONT PRN PRN IV HYPERTENSION 11/09/21 20:00 11/10/21 06:48 DC 11/10/21 01:36 Insulin Human Regular 100 unit/ Sodium Chloride 101 ml @ 0 mls/hr 1X ONCE IV 11/09/21 20:15 11/09/21 20:16 DC 11/10/21 00:24 Labetalol HCl (Normodyne Iv Push) 10 mg 1X ONCE IVP 11/09/21 20:15 11/09/21 20:16 DC 11/09/21 20:40 Ondansetron HCl (Zofran) 4 mg PRN Q8HRS PRN IVP NAUSEA/VOMITING 11/09/21 20:30 11/10/21 06:48 DC 11/09/21 23:33 Labetalol HCl (Normodyne Iv Push) 10 mg 1X ONCE IVP 11/09/21 20:30 11/09/21 20:31 DC 11/09/21 18:05 Potassium Chloride/Water 100 ml @ 100 mls/hr PRN Q1HR PRN IV SEE COMMENTS 11/10/21 00:00 11/10/21 03:41 Potassium Chloride/Water 100 ml @ 100 mls/hr PRN Q1HR PRN IV SEE COMMENTS 11/10/21 00:00 11/10/21 11:58 Magnesium Sulfate 100 ml @ 25 mls/hr DAILY IV 11/10/21 09:00 11/13/21 08:59 11/10/21 09:17 Sodium Chloride 1,000 ml @ 125 mls/hr Q8H IV 11/10/21 00:45 11/10/21 10:07 DC 11/10/21 00:44 Dextrose/Sodium Chloride 1,000 ml @ 125 mls/hr Q8H IV 11/10/21 03:45 11/10/21 09:59 DC 11/10/21 03:41 Nicardipine HCl 50 mg/Sodium Chloride 250 ml @ 25 mls/hr CONT PRN PRN IV HYPERTENSION 11/10/21 06:45 11/10/21 07:58 Ondansetron HCl (Zofran) 4 mg PRN Q6HRS PRN IVP NAUSEA/VOMITING 1ST CHOICE 11/10/21 06:45 11/10/21 08:19 Fentanyl Citrate (Fentanyl 2ml Vial) 50 mcg PRN Q2HR PRN IVP PAIN 11/10/21 08:30 11/10/21 11:07 Iohexol (Omnipaque 300 Mg/ml) 75 ml 1X ONCE IV 11/10/21 08:30 11/10/21 08:31 DC 11/10/21 08:56 Cefepime HCl (Maxipime) 1 gm Q24H IVP 11/10/21 12:00 11/10/21 11:44 ALLERGIES ALLERGIES: Coded Allergies: morphine (Verified Allergy, Intermediate, Itching, 09/09/21) lisinopril (Verified Adverse Reaction, Intermediate, Dry Cough, 09/09/21) Dry Cough ROS Review of System limited due to current nausea PHYSICAL EXAM General: Alert, Oriented X3, Cooperative, mild distress HEENT: Atraumatic, Mucous membr. moist/pink Lungs: Clear to auscultation, Normal air movement Heart: Regular rate (SR/ST), Normal S1, Normal S2, Other (2/6 systolic murmur to LLS border) Abdomen: Soft, No tenderness Extremities: No cyanosis, No edema Skin: No breakdown, No significant lesion Neuro: Sensation intact, Other (unable to assess speech as he is currently nauseated, able to answer question with yes or no) Psych/Mental Status: Other (flat affect) MUSCULOSKELETAL: Full range of motion without pain VITALS/I&O VITALS/I&O: Vital Signs Date Time Temp Pulse Resp B/P (MAP) Pulse Ox O2 Delivery O2 Flow Rate FiO2 11/10/21 12:00 100.4 106 16 187/66 93 Nasal Cannula 2.0 100.4 I & O 11/09/21 11/09/21 11/10/21 15:00 23:00 07:00 Intake Total 1695 ml Output Total 770 ml 400 ml Balance -770 ml 1295 ml LABS Lab: Laboratory Tests Test 11/09/21 19:07 11/09/21 19:25 11/09/21 22:10 11/09/21 22:45 O2 Saturation 97 % (92-99) Arterial Blood pH 7.60 (7.35-7.45) *H Arterial Blood pCO2 at Patient Temp 23 mmHg (35-46) L Arterial Blood pO2 at Patient Temp 82 mmHg (75-108) Arterial Blood HCO3 22 mmol/L (21-28) Arterial Blood Base Excess 1 mmol/L (-3-3) Oxyhemoglobin 96.2 % Methemoglobin 0.3 % (0.0-1.9) Carbon Monoxide, Quantitative 0.6 % (0.0-1.9) FiO2 21%/ra White Blood Count 7.3 x10^3/uL (4.0-11.0) Red Blood Count 3.89 x10^6/uL (4.30-5.70) L Hemoglobin 10.8 g/dL (13.0-17.5) L Hematocrit 32.4 % (39.0-53.0) L Mean Corpuscular Volume 83 fL (79-100) Mean Corpuscular Hemoglobin 28 pg (25-35) Mean Corpuscular Hemoglobin Concent 33 g/dL (31-37) Red Cell Distribution Width 15.8 % (11.5-14.5) H Platelet Count 250 x10^3/uL (140-400) Neutrophils (%) (Auto) 61 % (31-73) Lymphocytes (%) (Auto) 29 % (24-48) Monocytes (%) (Auto) 7 % (0-9) Eosinophils (%) (Auto) 2 % (0-3) Basophils (%) (Auto) 1 % (0-3) Neutrophils # (Auto) 4.4 x10^3/uL (1.8-7.7) Lymphocytes # (Auto) 2.1 x10^3/uL (1.0-4.8) Monocytes # (Auto) 0.5 x10^3/uL (0.0-1.1) Eosinophils # (Auto) 0.2 x10^3/uL (0.0-0.7) Basophils # (Auto) 0.1 x10^3/uL (0.0-0.2) Prothrombin Time 14.3 SEC (11.7-14.0) H Prothrombin Time INR 1.1 (0.8-1.1) Activated Partial Thromboplast Time 32 SEC (24-38) Sodium Level 123 mmol/L (136-145) L 117 mmol/L (136-145) *L Potassium Level 3.2 mmol/L (3.5-5.1) L 3.3 mmol/L (3.5-5.1) L Chloride Level 87 mmol/L (98-107) L 86 mmol/L (98-107) L Carbon Dioxide Level 22 mmol/L (21-32) 15 mmol/L (21-32) L Anion Gap 14 (6-14) 16 (6-14) H Blood Urea Nitrogen 19 mg/dL (8-26) 20 mg/dL (8-26) Creatinine 4.9 mg/dL (0.7-1.3) H 4.8 mg/dL (0.7-1.3) H Estimated GFR (Cockcroft-Gault) 15.0 15.4 BUN/Creatinine Ratio 4 (6-20) L Glucose Level 687 mg/dL (70-99) *H 604 mg/dL (70-99) *H Calcium Level 7.9 mg/dL (8.5-10.1) L 7.9 mg/dL (8.5-10.1) L Total Bilirubin 0.3 mg/dL (0.2-1.0) Aspartate Amino Transferase (AST) 12 U/L (15-37) L Alanine Aminotransferase (ALT) 20 U/L (16-63) Alkaline Phosphatase 170 U/L (46-116) H Troponin I High Sensitivity 19 ng/L (4-75) Total Protein 5.7 g/dL (6.4-8.2) L Albumin 2.5 g/dL (3.4-5.0) L Albumin/Globulin Ratio 0.8 (1.0-1.7) L Acetone Level Neg (NEG) Glucose (Fingerstick) 528 mg/dL (70-99) *H Phosphorus Level 4.2 mg/dL (2.6-4.7) Magnesium Level 1.2 mg/dL (1.8-2.4) L Test 11/10/21 01:13 11/10/21 02:17 11/10/21 03:14 11/10/21 04:18 Glucose (Fingerstick) 449 mg/dL (70-99) H 307 mg/dL (70-99) H 197 mg/dL (70-99) H 116 mg/dL (70-99) H Test 11/10/21 05:26 11/10/21 06:30 11/10/21 07:56 11/10/21 09:00 Glucose (Fingerstick) 100 mg/dL (70-99) H 126 mg/dL (70-99) H 123 mg/dL (70-99) H Urine Collection Type Unknown Urine Color (Auto) Yellow Urine Turbidity Clear Urine pH (Auto) 6.5 (<5.0-8.0) Urine Specific [place] 1.018 (1.000-1.030) Urine Protein (Auto) 600 mg/dL (Negative) Urine Glucose (Auto)(UA) >=1000 mg/dL (Negative) Urine Ketones (Auto) Negative mg/dL (Negative) Urine Blood (Auto) Trace (Negative) Urine Nitrite Negative (Negative) Urine Bilirubin (Auto) Negative (Negative) Urine Urobilinogen (Auto) Normal mg/dL (Normal) Urine Leukocyte Esterase (Auto) Negative (Negative) Urine RBC 3-5 /HPF (0-2) Urine WBC 1-4 /HPF (0-4) Urine Squamous Epithelial Cells Few /LPF Urine Transitional Epithelial Cells Few /LPF Urine Bacteria 0 /HPF (0-FEW) Urine Hyaline Casts Occasional /HPF Test 11/10/21 09:07 11/10/21 10:50 Glucose (Fingerstick) 123 mg/dL (70-99) H White Blood Count 16.1 x10^3/uL (4.0-11.0) H Red Blood Count 4.21 x10^6/uL (4.30-5.70) L Hemoglobin 11.4 g/dL (13.0-17.5) L Hematocrit 34.2 % (39.0-53.0) L Mean Corpuscular Volume 81 fL (79-100) Mean Corpuscular Hemoglobin 27 pg (25-35) Mean Corpuscular Hemoglobin Concent 33 g/dL (31-37) Red Cell Distribution Width 15.7 % (11.5-14.5) H Platelet Count 299 x10^3/uL (140-400) Neutrophils (%) (Auto) 78 % (31-73) H Lymphocytes (%) (Auto) 13 % (24-48) L Monocytes (%) (Auto) 8 % (0-9) Eosinophils (%) (Auto) 0 % (0-3) Basophils (%) (Auto) 0 % (0-3) Neutrophils # (Auto) 12.6 x10^3/uL (1.8-7.7) H Lymphocytes # (Auto) 2.2 x10^3/uL (1.0-4.8) Monocytes # (Auto) 1.3 x10^3/uL (0.0-1.1) H Eosinophils # (Auto) 0.0 x10^3/uL (0.0-0.7) Basophils # (Auto) 0.0 x10^3/uL (0.0-0.2) Sodium Level 133 mmol/L (136-145) #L Potassium Level 2.3 mmol/L (3.5-5.1) #*L Chloride Level 95 mmol/L (98-107) L Carbon Dioxide Level 26 mmol/L (21-32) Anion Gap 12 (6-14) Blood Urea Nitrogen 19 mg/dL (8-26) Creatinine 5.1 mg/dL (0.7-1.3) H Estimated GFR (Cockcroft-Gault) 14.3 Glucose Level 140 mg/dL (70-99) H Calcium Level 8.1 mg/dL (8.5-10.1) L Phosphorus Level 2.6 mg/dL (2.6-4.7) Magnesium Level 2.6 mg/dL (1.8-2.4) H Triglycerides Level 93 mg/dL (0-150) Cholesterol Level 135 mg/dL (0-200) LDL Cholesterol, Calculated 33 mg/dL (0-100) VLDL Cholesterol, Calculated 19 mg/dL (0-40) Non-HDL Cholesterol Calculated 52 mg/dL (0-129) HDL Cholesterol 83 mg/dL (40-60) H Cholesterol/HDL Ratio 1.6 Laboratory Tests 11/09/21 19:25 11/10/21 10:50 Laboratory Tests 11/09/21 19:25 11/09/21 22:45 11/10/21 10:50 ECHOCARDIOGRAM ECHOCARDIOGRAM <Conclusion> The left ventricular systolic function is normal and the ejection fraction is within normal range. The Ejection Fraction is 65-70%. There is normal LV segmental wall motion. There is a small pericardial effusion. DATE: 04/27/21 [id number] 0 ASSESSMENT/PLAN ASSESSMENT/PLAN 1. Acute Stroke with aphasia: also with element of metabolic encephalopathy. S/P tPA last night 2. HTN urgency: better with cardene 3. Uncontrolled DM2: improved 4. Hyponatremia 5. Hypokalemia 6. ESRD per nephrology 7. Fever with possible sepsis: ID following 8. CAD s/p PCI/stent to the LCx; [facility] 01/09 showed patent LCx stent and no lesions needing intervention. Follows with Dr. Jahaira FOSTER Clinically stable 9. Chronic diastolic CHF: compensated 10. HLP 11. Possible gastric erosion: coffee ground stain to prior emesis Defer further to PCP 12. Nausea and vomiting: antiemetic received. per PCP Recommendations 1. Brain MRI pending per neurology 2. Secondary prevention measures once able to take PO. Hold antiplatelets at least 24 hours post tPA. Continue cardene drip in the meantime. 3. K replacement, x1 PPI IV. 4. Fluid off loading per HD 5. Supportive care PETRA TELLEZ MD 11/13/210: CARDIAC CONSULT ASSESSMENT/PLAN ASSESSMENT/PLAN Late entry for 11/10/21 Pt. seen and examined. Agree with above SECURITIES CONSULTANT note. Aphasia persistent. Critically il. Continue medical therapy. MARÍA BURNS ROUTE SUPERVISOR Nov 10, 2021 12:52 PETRA TELLEZ MD Nov 13, 2021 21:50
[2021-11-10] MEDS ORDERED: VANCOMYCIN 1.5 GM in IV NORMAL SALINE 500ML BAG 500 ML IV ONE (13:00)
[2021-11-10] MEDS ORDERED: PANTOPRAZOLE IV PUSH 40 MG VIAL. IVP ONE (13:30)
--- NOTE | 2021-11-10 14:28 | PDOC2 ---
GI CONSULT Date of Service: DATE: 11/10/21 TIME: 14:12 Reason For Consult: n/v HPI: HPI: 56 y/o male who we've seen in the past for n/v and hiccups (improved w/ baclofen in the past). This time admitted w/ possible stroke. Also note hyperglycemia (h/o DM) and HTN. Currently in ICU w/ some expressive aphasia. Per nurse, vomiting all day ("dark brown" emesis) despite anti-emetics and acid-first responder. From previous encounters: H/o GERD controlled w/ omeprazole QD. ?previous EGD - not sure we ever documented this. Colonoscopy in 2016 @ [facility] w/ diverticulosis and hyperplastic polyp. S/p cholecystectomy (said no stones). Chronic pancreatitis (calcifications noted on past imaging) related to alcohol abuse - sober since 2005, takes Zenpep. Also reported past pseudocyst w/ drainage. No liver or PUD history. ACD per past iron studies. A1c was 8.9 in 05/2021. GES recommended as outpt when we saw here in 08/2021. PMH: PMH: CAD, CHF, HTN, HLD, anxiety, COPD, PTSD, allergic rhinitis, ESRD on HD, prostate cancer s/p radiation, DM +heterozygous MTHFR, elevated homocystine LUE AVF, cholecystectomy, tonsillectomy, PCI/stent, facial I&D, pseudocyst drainage, lumbar surgeries FH: Family History: Cancer, CAD, DM, Hypertension Social History: Smoke: 1 pack per day ALCOHOL: other (heavy in past - sober since 2005) ROS: Difficult to obtain - denies pain. Vitals: Vitals: Vital Signs Date Time Temp Pulse Resp B/P (MAP) Pulse Ox O2 Delivery O2 Flow Rate FiO2 11/10/21 13:43 108 197/82 11/10/21 13:00 100.0 18 93 Nasal Cannula 2.0 100.0 Labs: Labs: Laboratory Tests Test 11/09/21 19:07 11/09/21 19:25 11/09/21 22:10 11/09/21 22:45 O2 Saturation 97 % (92-99) Arterial Blood pH 7.60 (7.35-7.45) Arterial Blood pCO2 at Patient Temp 23 mmHg (35-46) Arterial Blood pO2 at Patient Temp 82 mmHg (75-108) Arterial Blood HCO3 22 mmol/L (21-28) Arterial Blood Base Excess 1 mmol/L (-3-3) Oxyhemoglobin 96.2 % Methemoglobin 0.3 % (0.0-1.9) Carbon Monoxide, Quantitative 0.6 % (0.0-1.9) FiO2 21%/ra White Blood Count 7.3 x10^3/uL (4.0-11.0) Red Blood Count 3.89 x10^6/uL (4.30-5.70) Hemoglobin 10.8 g/dL (13.0-17.5) Hematocrit 32.4 % (39.0-53.0) Mean Corpuscular Volume 83 fL (79-100) Mean Corpuscular Hemoglobin 28 pg (25-35) Mean Corpuscular Hemoglobin Concent 33 g/dL (31-37) Red Cell Distribution Width 15.8 % (11.5-14.5) Platelet Count 250 x10^3/uL (140-400) Neutrophils (%) (Auto) 61 % (31-73) Lymphocytes (%) (Auto) 29 % (24-48) Monocytes (%) (Auto) 7 % (0-9) Eosinophils (%) (Auto) 2 % (0-3) Basophils (%) (Auto) 1 % (0-3) Neutrophils # (Auto) 4.4 x10^3/uL (1.8-7.7) Lymphocytes # (Auto) 2.1 x10^3/uL (1.0-4.8) Monocytes # (Auto) 0.5 x10^3/uL (0.0-1.1) Eosinophils # (Auto) 0.2 x10^3/uL (0.0-0.7) Basophils # (Auto) 0.1 x10^3/uL (0.0-0.2) Prothrombin Time 14.3 SEC (11.7-14.0) Prothromb Time International Ratio 1.1 (0.8-1.1) Activated Partial Thromboplast Time 32 SEC (24-38) Sodium Level 123 mmol/L (136-145) 117 mmol/L (136-145) Potassium Level 3.2 mmol/L (3.5-5.1) 3.3 mmol/L (3.5-5.1) Chloride Level 87 mmol/L (98-107) 86 mmol/L (98-107) Carbon Dioxide Level 22 mmol/L (21-32) 15 mmol/L (21-32) Anion Gap 14 (6-14) 16 (6-14) Blood Urea Nitrogen 19 mg/dL (8-26) 20 mg/dL (8-26) Creatinine 4.9 mg/dL (0.7-1.3) 4.8 mg/dL (0.7-1.3) Estimated GFR (Cockcroft-Gault) 15.0 15.4 BUN/Creatinine Ratio 4 (6-20) Glucose Level 687 mg/dL (70-99) 604 mg/dL (70-99) Calcium Level 7.9 mg/dL (8.5-10.1) 7.9 mg/dL (8.5-10.1) Total Bilirubin 0.3 mg/dL (0.2-1.0) Aspartate Amino Transf (AST/SGOT) 12 U/L (15-37) Alanine Aminotransferase (ALT/SGPT) 20 U/L (16-63) Alkaline Phosphatase 170 U/L (46-116) Troponin I High Sensitivity 19 ng/L (4-75) Total Protein 5.7 g/dL (6.4-8.2) Albumin 2.5 g/dL (3.4-5.0) Albumin/Globulin Ratio 0.8 (1.0-1.7) Acetone Level Neg (NEG) Glucose (Fingerstick) 528 mg/dL (70-99) Phosphorus Level 4.2 mg/dL (2.6-4.7) Magnesium Level 1.2 mg/dL (1.8-2.4) Test 11/10/21 01:13 11/10/21 02:17 11/10/21 03:14 11/10/21 04:18 Glucose (Fingerstick) 449 mg/dL (70-99) 307 mg/dL (70-99) 197 mg/dL (70-99) 116 mg/dL (70-99) Test 11/10/21 05:26 11/10/21 06:30 11/10/21 07:56 11/10/21 09:00 Glucose (Fingerstick) 100 mg/dL (70-99) 126 mg/dL (70-99) 123 mg/dL (70-99) Urine Collection Type Unknown Urine Color (Auto) Yellow Urine Turbidity Clear Urine pH (Auto) 6.5 (<5.0-8.0) Urine Specific [place] 1.018 (1.000-1.030) Urine Protein (Auto) 600 mg/dL (Negative) Urine Glucose (Auto)(UA) >=1000 mg/dL (Negative) Urine Ketones (Auto) Negative mg/dL (Negative) Urine Blood (Auto) Trace (Negative) Urine Nitrite Negative (Negative) Urine Bilirubin (Auto) Negative (Negative) Urine Urobilinogen (Auto) Normal mg/dL (Normal) Urine Leukocyte Esterase (Auto) Negative (Negative) Urine RBC 3-5 /HPF (0-2) Urine WBC 1-4 /HPF (0-4) Urine Squamous Epithelial Cells Few /LPF Urine Transitional Epithelial Cells Few /LPF Urine Bacteria 0 /HPF (0-FEW) Urine Hyaline Casts Occasional /HPF Test 11/10/21 09:07 11/10/21 10:50 Glucose (Fingerstick) 123 mg/dL (70-99) White Blood Count 16.1 x10^3/uL (4.0-11.0) Red Blood Count 4.21 x10^6/uL (4.30-5.70) Hemoglobin 11.4 g/dL (13.0-17.5) Hematocrit 34.2 % (39.0-53.0) Mean Corpuscular Volume 81 fL (79-100) Mean Corpuscular Hemoglobin 27 pg (25-35) Mean Corpuscular Hemoglobin Concent 33 g/dL (31-37) Red Cell Distribution Width 15.7 % (11.5-14.5) Platelet Count 299 x10^3/uL (140-400) Neutrophils (%) (Auto) 78 % (31-73) Lymphocytes (%) (Auto) 13 % (24-48) Monocytes (%) (Auto) 8 % (0-9) Eosinophils (%) (Auto) 0 % (0-3) Basophils (%) (Auto) 0 % (0-3) Neutrophils # (Auto) 12.6 x10^3/uL (1.8-7.7) Lymphocytes # (Auto) 2.2 x10^3/uL (1.0-4.8) Monocytes # (Auto) 1.3 x10^3/uL (0.0-1.1) Eosinophils # (Auto) 0.0 x10^3/uL (0.0-0.7) Basophils # (Auto) 0.0 x10^3/uL (0.0-0.2) Sodium Level 133 mmol/L (136-145) Potassium Level 2.3 mmol/L (3.5-5.1) Chloride Level 95 mmol/L (98-107) Carbon Dioxide Level 26 mmol/L (21-32) Anion Gap 12 (6-14) Blood Urea Nitrogen 19 mg/dL (8-26) Creatinine 5.1 mg/dL (0.7-1.3) Estimated GFR (Cockcroft-Gault) 14.3 Glucose Level 140 mg/dL (70-99) Calcium Level 8.1 mg/dL (8.5-10.1) Phosphorus Level 2.6 mg/dL (2.6-4.7) Magnesium Level 2.6 mg/dL (1.8-2.4) Triglycerides Level 93 mg/dL (0-150) Cholesterol Level 135 mg/dL (0-200) LDL Cholesterol, Calculated 33 mg/dL (0-100) VLDL Cholesterol, Calculated 19 mg/dL (0-40) Non-HDL Cholesterol Calculated 52 mg/dL (0-129) HDL Cholesterol 83 mg/dL (40-60) Cholesterol/HDL Ratio 1.6 Allergies: Coded Allergies: morphine (Verified Allergy, Intermediate, Itching, 09/09/21) lisinopril (Verified Adverse Reaction, Intermediate, Dry Cough, 09/09/21) Dry Cough Medications: Current Medications Medications (Trade) Dose Ordered Sig/Ravinder Route PRN Reason Start Time Stop Time Status Last Admin Dose Admin Alteplase, Recombinant 5.4 ml @ 324 mls/hr 1X ONCE IV 11/09/21 20:00 11/09/21 20:01 DC 11/09/21 20:20 Alteplase, Recombinant 48.6 ml @ 48.6 mls/hr 1X ONCE IV 11/09/21 20:00 11/09/21 20:59 DC 11/09/21 20:21 Sodium Chloride 100 ml @ 100 mls/hr 1X ONCE IV 11/09/21 20:00 11/09/21 20:59 DC 11/09/21 21:30 Nicardipine HCl 50 mg/Sodium Chloride 250 ml @ 25 mls/hr CONT PRN PRN IV HYPERTENSION 11/09/21 20:00 11/10/21 06:48 DC 11/10/21 01:36 Insulin Human Regular 100 unit/ Sodium Chloride 101 ml @ 0 mls/hr 1X ONCE IV 11/09/21 20:15 11/09/21 20:16 DC 11/10/21 00:24 Labetalol HCl (Normodyne Iv Push) 10 mg 1X ONCE IVP 11/09/21 20:15 11/09/21 20:16 DC 11/09/21 20:40 Ondansetron HCl (Zofran) 4 mg PRN Q8HRS PRN IVP NAUSEA/VOMITING 11/09/21 20:30 11/10/21 06:48 DC 11/09/21 23:33 Labetalol HCl (Normodyne Iv Push) 10 mg 1X ONCE IVP 11/09/21 20:30 11/09/21 20:31 DC 11/09/21 18:05 Potassium Chloride/Water 100 ml @ 100 mls/hr PRN Q1HR PRN IV SEE COMMENTS 11/10/21 00:00 11/10/21 03:41 Potassium Chloride/Water 100 ml @ 100 mls/hr PRN Q1HR PRN IV SEE COMMENTS 11/10/21 00:00 11/10/21 12:45 Magnesium Sulfate 100 ml @ 25 mls/hr DAILY IV 11/10/21 09:00 11/13/21 08:59 11/10/21 09:17 Sodium Chloride 1,000 ml @ 125 mls/hr Q8H IV 11/10/21 00:45 11/10/21 10:07 DC 11/10/21 00:44 Dextrose/Sodium Chloride 1,000 ml @ 125 mls/hr Q8H IV 11/10/21 03:45 11/10/21 09:59 DC 11/10/21 03:41 Labetalol HCl (Normodyne Iv Push) 10 mg PRN Q10MIN PRN IVP HYPERTENSION 11/10/21 06:45 11/10/21 13:43 Nicardipine HCl 50 mg/Sodium Chloride 250 ml @ 25 mls/hr CONT PRN PRN IV HYPERTENSION 11/10/21 06:45 11/10/21 13:44 Ondansetron HCl (Zofran) 4 mg PRN Q6HRS PRN IVP NAUSEA/VOMITING 1ST CHOICE 11/10/21 06:45 11/10/21 08:19 Fentanyl Citrate (Fentanyl 2ml Vial) 50 mcg PRN Q2HR PRN IVP PAIN 11/10/21 08:30 11/10/21 11:07 Iohexol (Omnipaque 300 Mg/ml) 75 ml 1X ONCE IV 11/10/21 08:30 11/10/21 08:31 DC 11/10/21 08:56 Amlodipine Besylate (Norvasc) 10 mg DAILY PO 11/10/21 09:00 11/10/21 12:42 Clonidine HCl (Catapres) 0.1 mg TID PO 11/10/21 09:00 11/10/21 12:42 Doxazosin Mesylate (Cardura) 4 mg DAILY PO 11/10/21 09:00 11/10/21 12:40 Carvedilol (Coreg) 25 mg BIDWMEALS PO 11/10/21 09:30 11/10/21 12:41 Hydralazine HCl (Apresoline) 100 mg TID PO 11/10/21 09:30 11/10/21 12:41 Isosorbide Mononitrate (Imdur) 60 mg DAILY PO 11/10/21 09:30 11/10/21 12:42 Prochlorperazine Edisylate (Compazine) 10 mg PRN Q6HRS PRN IV NAUSEA/VOMITING, 2ND CHOICE 11/10/21 11:15 11/10/21 13:12 Cefepime HCl (Maxipime) 1 gm Q24H IVP 11/10/21 12:00 11/10/21 11:44 Vancomycin HCl 1.5 gm/Sodium Chloride 500 ml @ 250 mls/hr 1X ONCE IV 11/10/21 13:00 11/10/21 14:59 11/10/21 13:35 Potassium Chloride/Water 100 ml @ 100 mls/hr Q1H IV 11/10/21 13:00 11/10/21 18:59 11/10/21 13:36 Pantoprazole Sodium (PROTONIX VIAL for IV PUSH) 40 mg 1X ONCE IVP 11/10/21 13:30 11/10/21 13:31 DC 11/10/21 13:19 Imaging: Imaging: CXR 11/09 Impression: 1. Mild reticular interstitial thickening, likely due to chronic interstitial changes. Head CT 11/09 Impression: No acute hemorrhage or large territory denis-white loss. Head/Neck CTA 11/10 IMPRESSION: Image quality is degraded by significant motion artifact and evaluation of vessels in some locations is nondiagnostic, particularly at the skull base. 1. Allowing for this, no intracranial large vessel occlusion. 2. No stenosis of the cervical carotid or vertebral arteries, although not well evaluated at the skull base. Central Line Placement 11/10 CXR 11/10 Impression: 1. No acute cardiopulmonary process. 2. Right internal jugular central line in good position. KUB 11/10 pending PE: GEN: NAD HEENT: Atraumatic, PERRL LUNGS: CTAB HEART: tachycardic ABD: quite BS, S/ND/NT EXTREMITY: No edema SKIN: No rashes, no jaundice NEURO/PSYCH: awake and alert, difficulty finding words A/P: A/P: Possible stroke/encephalopathy, fever, vomiting HTN, ESRD on HD, DM, hypokalemia ACD (stable) GERD Chronic pancreatitis (related to alcohol - now sober) CRC screen - UTD (2016) Diverticulosis -- Recurrent issue w/ h/o GERD - now exacerbated by possible stroke, hyperglycemia, etc. Resume PPI - IV for now. Await KUB. Not a good endoscopy candidate. KIMMY MARAVILLA Nov 10, 2021 14:28
[2021-11-10] MEDS: hydrALAZINE 20 MG/ML VIAL. IVP PRN ×2 (14:39→18:52)
--- NOTE | 2021-11-10 15:24 | NUR ---
SS following for discharge planning. SS reviewed pt chart and discussed with pt RN. Pt is from home and is currently requiring oxygen at two liters nasal canula. GI, Cardiology, and ID following. PT/OT ordered. PO diet. Cardine drip. TPA last night. Pt on IV Cefepime and Vancomycin. SS will continue to follow for discharge planning.
[2021-11-10] MEDS: VANCOMYCIN PER PHARMACY MC PRN (15:50)
--- NOTE | 2021-11-10 15:53 | NUR ---
Pharmacy Vancomycin Dosing Note S: Consulted to monitor and dose vancomycin started 11/10/21. O: ADAIR PINEDA is a 56 year old M with FEVER and ALTERED MENTAL STATUS . Other Antibiotics: CEFEPIME LABS: Last BUN: 19 Last Creatinine: 5.1 Creatinine Clearance: DIALYSIS MO,WE,FR Last WBC: 16.1 Tmax (past 24 hours): 100.2 Target Trough: 10-20 A: Based on: VANCO dosing guidelines P: 1. Begin Vancomycin 1500mg LOAD dose today then per levels. 2. Follow up Random level on 11/13/21 at 0500 3. Pharmacy will continue to monitor, follow and adjust therapy as needed. EMILY LEMONS, [facility], 11/10/21 [id number]
--- NOTE | 2021-11-10 15:58 | RAD ---
EXAM: XR ABDOMEN 1V 11/10/2021 2:06 PM CLINICAL INDICATION: Nausea and vomiting COMPARISON: Abdominal radiograph 09/06/2021 TECHNIQUE: AP view the abdomen FINDINGS: Bowel gas pattern is nonspecific and nonobstructive. There is a large volume of stool. The re are cholecystectomy clips. Pancreatic calcifications are seen. IMPRESSION: 1. No small bowel obstruction. 2. Large volume of stool. 3. Pancreatic calcifications suggesting chronic pancreatitis. Electronically signed by: Viky Wing MD (11/10/2021 3:56 PM) [id number]
[2021-11-10] MEDS: PANTOPRAZOLE IV PUSH 40 MG VIAL. IVP SCH (16:24)
[2021-11-10] MEDS ORDERED: IV NORMAL SALINE 1000ML BAG 1,000 ML IV PRN ×2 (17:00)
[2021-11-10] MEDS ORDERED: DIALYSIS PATIENT. MC PRN ×2 (17:00)
[2021-11-10] MEDS ORDERED: ALBUMIN HUMAN 25% 200 ML IV PRN (17:00)
[2021-11-10] MEDS: traZODone 50 MG TABLET. PO SCH (20:28)
[2021-11-10] MEDS: ATORVASTATIN CALCIUM 40 MG TABLET. PO SCH (20:28)
[2021-11-11] VITALS (18 sets, daily range): BP systolic 102–201; BP diastolic 54–91
[2021-11-11 02:15] LABS: HEMOGLOBIN A1C 10.2 % (4.8-5.6)
--- NOTE | 2021-11-11 04:26 | EKG ---
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
[2021-11-11 05:17] LABS: BASO # 0.1 x10^3/uL (0.0-0.2); BASO % 1 % (0-3); EOS % 0 % (0-3); HEMATOCRIT 29.2 % (39.0-53.0); HEMOGLOBIN 9.7 g/dL (13.0-17.5); LYMPH # 1.8 x10^3/uL (1.0-4.8); LYMPH % 13 % (24-48); MEAN CORPUSCULAR HEMOGLOBIN 27 pg (25-35); MEAN CORPUSCULAR HGB CONC 33 g/dL (31-37); MEAN CORPUSCULAR VOLUME 82 fL (79-100); MONO # 0.7 x10^3/uL (0.0-1.1); MONO % 5 % (0-9); NEUT # 11.1 x10^3/uL (1.8-7.7); NEUT % 81 % (31-73); PLATELET COUNT 253 x10^3/uL (140-400); RED BLOOD COUNT 3.55 x10^6/uL (4.30-5.70); RED CELL DISTRIBUTION WIDTH 15.9 % (11.5-14.5); WHITE BLOOD COUNT 13.6 x10^3/uL (4.0-11.0)
[2021-11-11 05:36] LABS: ALBUMIN/GLOBULIN RATIO 0.6 (1.0-1.7); CREATININE 3.5 mg/dL (0.7-1.3); GFR 22.1; POTASSIUM 3.7 mmol/L (3.5-5.1); TOTAL BILIRUBIN 0.4 mg/dL (0.2-1.0); TOTAL PROTEIN 5.4 g/dL (6.4-8.2)
[2021-11-11] MEDS ORDERED: PANTOPRAZOLE IV PUSH 40 MG VIAL. IVP SCH (07:30)
[2021-11-11] MEDS: PANTOPRAZOLE IV PUSH 40 MG VIAL. IVP SCH ×2 (07:30→17:31)
[2021-11-11] MEDS: LIPASE/PROTEAS/AMYLAS 10/32/42 CAPSULE.DR. PO SCH ×3 (09:42→17:00)
[2021-11-11] MEDS: METHOCARBAMOL 750 MG TABLET PO PRN (09:44)
[2021-11-11] MEDS: CARVEDILOL 12.5 MG TABLET. PO SCH ×2 (09:44→17:38)
[2021-11-11] MEDS: DOXAZOSIN MESYLATE 4 MG TABLET. PO SCH (09:45)
[2021-11-11] MEDS: ISOSORBIDE MONONITRATE ER 30 MG TAB.ER.24H PO SCH (09:45)
[2021-11-11] MEDS: cloNIDine HCL 0.1 MG TABLET PO SCH ×3 (09:46→21:22)
[2021-11-11] MEDS: SEVELAMER CARBONATE 800 MG TABLET. PO SCH ×3 (09:46→17:38)
[2021-11-11] MEDS: MAGNESIUM SULFATE 4GM 100 ML IV SCH (09:49)
[2021-11-11] MEDS: INSULIN LISPRO 300 UNITS/3 ML VIAL. SQ SCH ×3 (09:53→16:30)
--- NOTE | 2021-11-11 10:00 | PDOC ---
IM PROGRESS NOTES- Subjective Subjective Feeling better. No c/o chest pain,dyspnea. Had lot of nausea,vomiting yesterday. He had diarrhea last night. Other systems reviewed and are negative. Aphasia is better. Objective Vitals/I&O Vital Signs Date Time Temp Pulse Resp B/P (MAP) Pulse Ox O2 Delivery O2 Flow Rate FiO2 11/11/21 09:49 84 159/70 11/11/21 08:34 10 Nasal Cannula 3.0 11/11/21 06:05 99 11/11/21 04:00 99.8 99.8 I & O 11/10/21 11/10/21 11/11/21 15:00 23:00 07:00 Output Total 550 ml 350 ml 80 ml Balance -550 ml -350 ml -80 ml Physical Exam Physical Exam General Appearance - alert and in no distress Chest - decreased breath sounds at bases Heart - S1 and S2 normal Abdomen - soft, non tender Neurological - alert ,aphasic,forgetful Musculoskeletal - generalized weakness Extremities - no edema Labs Laboratory Tests Test 11/10/21 10:50 11/10/21 16:31 11/10/21 18:20 11/11/21 05:05 White Blood Count 16.1 x10^3/uL (4.0-11.0) H 13.6 x10^3/uL (4.0-11.0) H Red Blood Count 4.21 x10^6/uL (4.30-5.70) L 3.55 x10^6/uL (4.30-5.70) L Hemoglobin 11.4 g/dL (13.0-17.5) L 9.7 g/dL (13.0-17.5) L Hematocrit 34.2 % (39.0-53.0) L 29.2 % (39.0-53.0) L Mean Corpuscular Volume 81 fL (79-100) 82 fL (79-100) Mean Corpuscular Hemoglobin 27 pg (25-35) 27 pg (25-35) Mean Corpuscular Hemoglobin Concent 33 g/dL (31-37) 33 g/dL (31-37) Red Cell Distribution Width 15.7 % (11.5-14.5) H 15.9 % (11.5-14.5) H Platelet Count 299 x10^3/uL (140-400) 253 x10^3/uL (140-400) Neutrophils (%) (Auto) 78 % (31-73) H 81 % (31-73) H Lymphocytes (%) (Auto) 13 % (24-48) L 13 % (24-48) L Monocytes (%) (Auto) 8 % (0-9) 5 % (0-9) Eosinophils (%) (Auto) 0 % (0-3) 0 % (0-3) Basophils (%) (Auto) 0 % (0-3) 1 % (0-3) Neutrophils # (Auto) 12.6 x10^3/uL (1.8-7.7) H 11.1 x10^3/uL (1.8-7.7) H Lymphocytes # (Auto) 2.2 x10^3/uL (1.0-4.8) 1.8 x10^3/uL (1.0-4.8) Monocytes # (Auto) 1.3 x10^3/uL (0.0-1.1) H 0.7 x10^3/uL (0.0-1.1) Eosinophils # (Auto) 0.0 x10^3/uL (0.0-0.7) 0.0 x10^3/uL (0.0-0.7) Basophils # (Auto) 0.0 x10^3/uL (0.0-0.2) 0.1 x10^3/uL (0.0-0.2) Sodium Level 133 mmol/L (136-145) #L 137 mmol/L (136-145) Potassium Level 2.3 mmol/L (3.5-5.1) #*L 3.7 mmol/L (3.5-5.1) # Chloride Level 95 mmol/L (98-107) L 101 mmol/L (98-107) Carbon Dioxide Level 26 mmol/L (21-32) 30 mmol/L (21-32) Anion Gap 12 (6-14) 6 (6-14) Blood Urea Nitrogen 19 mg/dL (8-26) 11 mg/dL (8-26) Creatinine 5.1 mg/dL (0.7-1.3) H 3.5 mg/dL (0.7-1.3) H Estimated GFR (Cockcroft-Gault) 14.3 22.1 Glucose Level 140 mg/dL (70-99) H 200 mg/dL (70-99) H Hemoglobin A1c 10.2 % (4.8-5.6) H Calcium Level 8.1 mg/dL (8.5-10.1) L 8.0 mg/dL (8.5-10.1) L Phosphorus Level 2.6 mg/dL (2.6-4.7) Magnesium Level 2.6 mg/dL (1.8-2.4) H Triglycerides Level 93 mg/dL (0-150) Cholesterol Level 135 mg/dL (0-200) LDL Cholesterol, Calculated 33 mg/dL (0-100) VLDL Cholesterol, Calculated 19 mg/dL (0-40) Non-HDL Cholesterol Calculated 52 mg/dL (0-129) HDL Cholesterol 83 mg/dL (40-60) H Cholesterol/HDL Ratio 1.6 Glucose (Fingerstick) 353 mg/dL (70-99) H Hepatitis B Surface Antigen Nonreactive (Nonreactive) Hepatitis B Surface Antibody Nonreactive BUN/Creatinine Ratio 3 (6-20) L Total Bilirubin 0.4 mg/dL (0.2-1.0) Aspartate Amino Transferase (AST) 17 U/L (15-37) Alanine Aminotransferase (ALT) 10 U/L (16-63) L Alkaline Phosphatase 110 U/L (46-116) Total Protein 5.4 g/dL (6.4-8.2) L Albumin 2.0 g/dL (3.4-5.0) L Albumin/Globulin Ratio 0.6 (1.0-1.7) L Test 11/11/21 08:53 Glucose (Fingerstick) 216 mg/dL (70-99) H Laboratory Tests 11/10/21 10:50 11/11/21 05:05 Laboratory Tests 11/10/21 10:50 11/11/21 05:05 Meds Current Medications Medications (Trade) Dose Ordered Sig/Ravinder Route PRN Reason Start Time Stop Time Status Last Admin Dose Admin Insulin Human Lispro (HumaLOG) 0-8 UNITS TIDBFRMEAL SQ 11/10/21 11:30 11/10/21 16:47 Prochlorperazine Edisylate (Compazine) 10 mg PRN Q6HRS PRN IV NAUSEA/VOMITING, 2ND CHOICE 11/10/21 11:15 11/10/21 13:12 Vancomycin HCl (Vanco Per Pharmacy) 1 each PRN DAILY PRN MC SEE COMMENTS 11/10/21 11:15 11/10/21 15:50 Cefepime HCl (Maxipime) 1 gm Q24H IVP 11/10/21 12:00 11/10/21 11:44 Vancomycin HCl 1.5 gm/Sodium Chloride 500 ml @ 250 mls/hr 1X ONCE IV 11/10/21 13:00 11/10/21 14:59 DC 11/10/21 13:35 Potassium Chloride/Water 100 ml @ 100 mls/hr Q1H IV 11/10/21 13:00 11/10/21 18:59 DC 11/10/21 18:00 Pantoprazole Sodium (PROTONIX VIAL for IV PUSH) 40 mg 1X ONCE IVP 11/10/21 13:30 11/10/21 13:31 DC 11/10/21 13:19 Hydralazine HCl (Apresoline Inj) 20 mg PRN Q4HRS PRN IVP ELEVATED BP, SEE COMMENTS 11/10/21 14:30 11/10/21 18:52 Pantoprazole Sodium (PROTONIX VIAL for IV PUSH) 40 mg BIDAC IVP 11/10/21 16:30 11/10/21 16:24 Assessment Assessment 1. Acute cerebrovascular accident with aphasia, status post TPA treatment. 2. Acute hypertensive crisis. 3. Diabetic ketoacidosis. 4. Fever, etiology not clear. 5. End-stage renal disease, on hemodialysis. 6. 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 7. Osteoarthritis, status post neck surgery and lumbar surgery and chronic pain. 8. Gastroesophageal reflux disease. 9. Coronary artery disease with history of stent placement. 10. Chronic hypoxic respiratory failure, on oxygen by nasal cannula 2 liters per minute. 11. Chronic obstructive pulmonary disease. 14. Mixed hyperlipidemia. 15. Chronic pancreatitis. 16. Anemia. 17. Physical deconditioning. 18. Cervical spinal stenosis and cervical radiculopathy with several neck surgeries. PLAN: 1. Acute CVA. The patient had TPA. Consulted Dr. Garner. Aphasia is better. CTA Image quality is degraded by significant motion artifact and evaluation of vessels in some locations is nondiagnostic, particularly at the skull base. 1. Allowing for this, no intracranial large vessel occlusion. 2. No stenosis of the cervical carotid or vertebral arteries, although not well evaluated at the skull base. 2. Diabetes mellitus with very high sugars. Treated for DKA. He is not hypoglycemic. Anion gap is getting worse, so he was treated with insulin, but he is stable and the blood sugars are stable and I will discontinue insulin drip and put him on sliding scale insulin. Restart low dose Lantus. HbA1C 10.2. 3. End-stage renal disease, on hemodialysis. Consult Dr. Garcia for Nephrology evaluation and management. 4. Fever, etiology not clear. Order urinalysis and culture. Chest x-ray is negative. Order blood cultures. Consult Dr. Augilar for Infectious Disease evaluation and management. Started on empiric IV Vancomycin and Cefipime. U/a negative. 5. Consult PT, OT, speech therapy evaluation and management. 6. Hypertensive crisis. Continue Cardene drip. Consult cardiology. 7. Nausea,vomiting, hiccups. Hs GERD. BID IV Protonix. Consulted GI- . KUB ? minimal ileus. Better. Advance diet. Hypomagnesemia- replace MG. For details, please refer to the orders. Long-term as well as short-term prognosis of this patient is very poor due to his multiple medical problems. Plan Plan For more details regarding further plans, please refer to the orders. Justifications for Admission Other Justification TRINA ALDANA MD Nov 11, 2021 10:00
--- NOTE | 2021-11-11 11:27 | PDOC ---
G I PROGRESS NOTE Subjective Brighter. Speech better. Denies pain, nausea or vomiting. Physical Exam Lungs clear anteriorly. RRR Abdomen soft, not tender nor distended. Review of Relevant I have reviewed the following items donell (where applicable) has been applied. Labs Laboratory Tests Test 11/09/21 19:07 11/09/21 19:25 11/09/21 22:10 11/09/21 22:45 O2 Saturation 97 % (92-99) Arterial Blood pH 7.60 (7.35-7.45) Arterial Blood pCO2 at Patient Temp 23 mmHg (35-46) Arterial Blood pO2 at Patient Temp 82 mmHg (75-108) Arterial Blood HCO3 22 mmol/L (21-28) Arterial Blood Base Excess 1 mmol/L (-3-3) Oxyhemoglobin 96.2 % Methemoglobin 0.3 % (0.0-1.9) Carbon Monoxide, Quantitative 0.6 % (0.0-1.9) FiO2 21%/ra White Blood Count 7.3 x10^3/uL (4.0-11.0) Red Blood Count 3.89 x10^6/uL (4.30-5.70) Hemoglobin 10.8 g/dL (13.0-17.5) Hematocrit 32.4 % (39.0-53.0) Mean Corpuscular Volume 83 fL (79-100) Mean Corpuscular Hemoglobin 28 pg (25-35) Mean Corpuscular Hemoglobin Concent 33 g/dL (31-37) Red Cell Distribution Width 15.8 % (11.5-14.5) Platelet Count 250 x10^3/uL (140-400) Neutrophils (%) (Auto) 61 % (31-73) Lymphocytes (%) (Auto) 29 % (24-48) Monocytes (%) (Auto) 7 % (0-9) Eosinophils (%) (Auto) 2 % (0-3) Basophils (%) (Auto) 1 % (0-3) Neutrophils # (Auto) 4.4 x10^3/uL (1.8-7.7) Lymphocytes # (Auto) 2.1 x10^3/uL (1.0-4.8) Monocytes # (Auto) 0.5 x10^3/uL (0.0-1.1) Eosinophils # (Auto) 0.2 x10^3/uL (0.0-0.7) Basophils # (Auto) 0.1 x10^3/uL (0.0-0.2) Prothrombin Time 14.3 SEC (11.7-14.0) Prothromb Time International Ratio 1.1 (0.8-1.1) Activated Partial Thromboplast Time 32 SEC (24-38) Sodium Level 123 mmol/L (136-145) 117 mmol/L (136-145) Potassium Level 3.2 mmol/L (3.5-5.1) 3.3 mmol/L (3.5-5.1) Chloride Level 87 mmol/L (98-107) 86 mmol/L (98-107) Carbon Dioxide Level 22 mmol/L (21-32) 15 mmol/L (21-32) Anion Gap 14 (6-14) 16 (6-14) Blood Urea Nitrogen 19 mg/dL (8-26) 20 mg/dL (8-26) Creatinine 4.9 mg/dL (0.7-1.3) 4.8 mg/dL (0.7-1.3) Estimated GFR (Cockcroft-Gault) 15.0 15.4 BUN/Creatinine Ratio 4 (6-20) Glucose Level 687 mg/dL (70-99) 604 mg/dL (70-99) Calcium Level 7.9 mg/dL (8.5-10.1) 7.9 mg/dL (8.5-10.1) Total Bilirubin 0.3 mg/dL (0.2-1.0) Aspartate Amino Transf (AST/SGOT) 12 U/L (15-37) Alanine Aminotransferase (ALT/SGPT) 20 U/L (16-63) Alkaline Phosphatase 170 U/L (46-116) Troponin I High Sensitivity 19 ng/L (4-75) Total Protein 5.7 g/dL (6.4-8.2) Albumin 2.5 g/dL (3.4-5.0) Albumin/Globulin Ratio 0.8 (1.0-1.7) Acetone Level Neg (NEG) Glucose (Fingerstick) 528 mg/dL (70-99) Phosphorus Level 4.2 mg/dL (2.6-4.7) Magnesium Level 1.2 mg/dL (1.8-2.4) Test 11/10/21 01:13 11/10/21 02:17 11/10/21 03:14 11/10/21 04:18 Glucose (Fingerstick) 449 mg/dL (70-99) 307 mg/dL (70-99) 197 mg/dL (70-99) 116 mg/dL (70-99) Test 11/10/21 05:26 11/10/21 06:30 11/10/21 07:56 11/10/21 09:00 Glucose (Fingerstick) 100 mg/dL (70-99) 126 mg/dL (70-99) 123 mg/dL (70-99) Urine Collection Type Unknown Urine Color (Auto) Yellow Urine Turbidity Clear Urine pH (Auto) 6.5 (<5.0-8.0) Urine Specific Beccaria 1.018 (1.000-1.030) Urine Protein (Auto) 600 mg/dL (Negative) Urine Glucose (Auto)(UA) >=1000 mg/dL (Negative) Urine Ketones (Auto) Negative mg/dL (Negative) Urine Blood (Auto) Trace (Negative) Urine Nitrite Negative (Negative) Urine Bilirubin (Auto) Negative (Negative) Urine Urobilinogen (Auto) Normal mg/dL (Normal) Urine Leukocyte Esterase (Auto) Negative (Negative) Urine RBC 3-5 /HPF (0-2) Urine WBC 1-4 /HPF (0-4) Urine Squamous Epithelial Cells Few /LPF Urine Transitional Epithelial Cells Few /LPF Urine Bacteria 0 /HPF (0-FEW) Urine Hyaline Casts Occasional /HPF Test 11/10/21 09:07 11/10/21 10:50 11/10/21 16:31 11/10/21 18:20 Glucose (Fingerstick) 123 mg/dL (70-99) 353 mg/dL (70-99) White Blood Count 16.1 x10^3/uL (4.0-11.0) Red Blood Count 4.21 x10^6/uL (4.30-5.70) Hemoglobin 11.4 g/dL (13.0-17.5) Hematocrit 34.2 % (39.0-53.0) Mean Corpuscular Volume 81 fL (79-100) Mean Corpuscular Hemoglobin 27 pg (25-35) Mean Corpuscular Hemoglobin Concent 33 g/dL (31-37) Red Cell Distribution Width 15.7 % (11.5-14.5) Platelet Count 299 x10^3/uL (140-400) Neutrophils (%) (Auto) 78 % (31-73) Lymphocytes (%) (Auto) 13 % (24-48) Monocytes (%) (Auto) 8 % (0-9) Eosinophils (%) (Auto) 0 % (0-3) Basophils (%) (Auto) 0 % (0-3) Neutrophils # (Auto) 12.6 x10^3/uL (1.8-7.7) Lymphocytes # (Auto) 2.2 x10^3/uL (1.0-4.8) Monocytes # (Auto) 1.3 x10^3/uL (0.0-1.1) Eosinophils # (Auto) 0.0 x10^3/uL (0.0-0.7) Basophils # (Auto) 0.0 x10^3/uL (0.0-0.2) Sodium Level 133 mmol/L (136-145) Potassium Level 2.3 mmol/L (3.5-5.1) Chloride Level 95 mmol/L (98-107) Carbon Dioxide Level 26 mmol/L (21-32) Anion Gap 12 (6-14) Blood Urea Nitrogen 19 mg/dL (8-26) Creatinine 5.1 mg/dL (0.7-1.3) Estimated GFR (Cockcroft-Gault) 14.3 Glucose Level 140 mg/dL (70-99) Hemoglobin A1c 10.2 % (4.8-5.6) Calcium Level 8.1 mg/dL (8.5-10.1) Phosphorus Level 2.6 mg/dL (2.6-4.7) Magnesium Level 2.6 mg/dL (1.8-2.4) Triglycerides Level 93 mg/dL (0-150) Cholesterol Level 135 mg/dL (0-200) LDL Cholesterol, Calculated 33 mg/dL (0-100) VLDL Cholesterol, Calculated 19 mg/dL (0-40) Non-HDL Cholesterol Calculated 52 mg/dL (0-129) HDL Cholesterol 83 mg/dL (40-60) Cholesterol/HDL Ratio 1.6 Hepatitis B Surface Antigen Nonreactive (Nonreactive) Hepatitis B Surface Antibody Nonreactive Test 4/23/22 05:05 11/11/21 08:53 White Blood Count 13.6 x10^3/uL (4.0-11.0) Red Blood Count 3.55 x10^6/uL (4.30-5.70) Hemoglobin 9.7 g/dL (13.0-17.5) Hematocrit 29.2 % (39.0-53.0) Mean Corpuscular Volume 82 fL (79-100) Mean Corpuscular Hemoglobin 27 pg (25-35) Mean Corpuscular Hemoglobin Concent 33 g/dL (31-37) Red Cell Distribution Width 15.9 % (11.5-14.5) Platelet Count 253 x10^3/uL (140-400) Neutrophils (%) (Auto) 81 % (31-73) Lymphocytes (%) (Auto) 13 % (24-48) Monocytes (%) (Auto) 5 % (0-9) Eosinophils (%) (Auto) 0 % (0-3) Basophils (%) (Auto) 1 % (0-3) Neutrophils # (Auto) 11.1 x10^3/uL (1.8-7.7) Lymphocytes # (Auto) 1.8 x10^3/uL (1.0-4.8) Monocytes # (Auto) 0.7 x10^3/uL (0.0-1.1) Eosinophils # (Auto) 0.0 x10^3/uL (0.0-0.7) Basophils # (Auto) 0.1 x10^3/uL (0.0-0.2) Sodium Level 137 mmol/L (136-145) Potassium Level 3.7 mmol/L (3.5-5.1) Chloride Level 101 mmol/L (98-107) Carbon Dioxide Level 30 mmol/L (21-32) Anion Gap 6 (6-14) Blood Urea Nitrogen 11 mg/dL (8-26) Creatinine 3.5 mg/dL (0.7-1.3) Estimated GFR (Cockcroft-Gault) 22.1 BUN/Creatinine Ratio 3 (6-20) Glucose Level 200 mg/dL (70-99) Calcium Level 8.0 mg/dL (8.5-10.1) Total Bilirubin 0.4 mg/dL (0.2-1.0) Aspartate Amino Transf (AST/SGOT) 17 U/L (15-37) Alanine Aminotransferase (ALT/SGPT) 10 U/L (16-63) Alkaline Phosphatase 110 U/L (46-116) Total Protein 5.4 g/dL (6.4-8.2) Albumin 2.0 g/dL (3.4-5.0) Albumin/Globulin Ratio 0.6 (1.0-1.7) Glucose (Fingerstick) 216 mg/dL (70-99) Laboratory Tests Test 11/10/21 16:31 11/10/21 18:20 11/11/21 05:05 11/11/21 08:53 Glucose (Fingerstick) 353 mg/dL (70-99) 216 mg/dL (70-99) Hepatitis B Surface Antigen Nonreactive (Nonreactive) Hepatitis B Surface Antibody Nonreactive White Blood Count 13.6 x10^3/uL (4.0-11.0) Red Blood Count 3.55 x10^6/uL (4.30-5.70) Hemoglobin 9.7 g/dL (13.0-17.5) Hematocrit 29.2 % (39.0-53.0) Mean Corpuscular Volume 82 fL (79-100) Mean Corpuscular Hemoglobin 27 pg (25-35) Mean Corpuscular Hemoglobin Concent 33 g/dL (31-37) Red Cell Distribution Width 15.9 % (11.5-14.5) Platelet Count 253 x10^3/uL (140-400) Neutrophils (%) (Auto) 81 % (31-73) Lymphocytes (%) (Auto) 13 % (24-48) Monocytes (%) (Auto) 5 % (0-9) Eosinophils (%) (Auto) 0 % (0-3) Basophils (%) (Auto) 1 % (0-3) Neutrophils # (Auto) 11.1 x10^3/uL (1.8-7.7) Lymphocytes # (Auto) 1.8 x10^3/uL (1.0-4.8) Monocytes # (Auto) 0.7 x10^3/uL (0.0-1.1) Eosinophils # (Auto) 0.0 x10^3/uL (0.0-0.7) Basophils # (Auto) 0.1 x10^3/uL (0.0-0.2) Sodium Level 137 mmol/L (136-145) Potassium Level 3.7 mmol/L (3.5-5.1) Chloride Level 101 mmol/L (98-107) Carbon Dioxide Level 30 mmol/L (21-32) Anion Gap 6 (6-14) Blood Urea Nitrogen 11 mg/dL (8-26) Creatinine 3.5 mg/dL (0.7-1.3) Estimated GFR (Cockcroft-Gault) 22.1 BUN/Creatinine Ratio 3 (6-20) Glucose Level 200 mg/dL (70-99) Calcium Level 8.0 mg/dL (8.5-10.1) Total Bilirubin 0.4 mg/dL (0.2-1.0) Aspartate Amino Transf (AST/SGOT) 17 U/L (15-37) Alanine Aminotransferase (ALT/SGPT) 10 U/L (16-63) Alkaline Phosphatase 110 U/L (46-116) Total Protein 5.4 g/dL (6.4-8.2) Albumin 2.0 g/dL (3.4-5.0) Albumin/Globulin Ratio 0.6 (1.0-1.7) Vitals/I & O Vital Sign - Last 24 Hours 11/10/21 11/10/21 11/10/21 11/10/21 11:38 12:00 13:00 13:43 Temp 100.4 100.0 100.4 100.0 Pulse 106 106 108 Resp 16 18 B/P (MAP) 187/66 164/72 197/82 Pulse Ox 93 93 93 O2 Delivery Nasal Cannula Nasal Cannula Nasal Cannula O2 Flow Rate 2.0 2.0 2.0 11/10/21 11/10/21 11/10/21 11/10/21 14:00 14:00 14:30 14:39 Temp 100.2 100.2 Pulse 92 92 100 92 Resp 18 B/P (MAP) 174/75 174/75 187/76 174/75 Pulse Ox 93 O2 Delivery Nasal Cannula O2 Flow Rate 2.0 11/10/21 11/10/21 11/10/21 11/10/21 16:00 16:00 16:59 17:00 Temp 100.0 100.9 100.0 100.9 Pulse 101 92 103 Resp 18 20 B/P (MAP) 133/58 (83) 174/75 129/56 (80) Pulse Ox 98 97 O2 Delivery Nasal Cannula Nasal Cannula Nasal Cannula O2 Flow Rate 3.0 3.0 3.0 11/10/21 11/10/21 11/10/21 11/10/21 18:00 18:52 19:00 19:00 Temp 99.9 99.9 Pulse 108 116 112 112 Resp 18 18 B/P (MAP) 147/ 189/115 157/61 (93) 157/61 Pulse Ox 97 95 96 O2 Delivery Nasal Cannula Nasal Cannula Nasal Cannula O2 Flow Rate 3.0 3.0 3.0 11/10/21 11/10/21 11/10/21 11/10/21 20:00 20:00 20:28 20:28 Temp 98.9 98.9 Pulse 119 124 124 Resp 23 B/P (MAP) 153/66 160/62 160/62 Pulse Ox 97 O2 Delivery Nasal Cannula Nasal Cannula O2 Flow Rate 3.0 3.0 11/10/21 11/10/21 11/10/21 11/10/21 21:00 22:18 23:00 23:59 Pulse 116 98 116 Resp 12 17 15 B/P (MAP) 134/62 150/56 177/71 Pulse Ox 98 97 97 O2 Delivery Nasal Cannula Nasal Cannula Nasal Cannula Nasal Cannula O2 Flow Rate 3.0 3.0 3.0 3.0 11/11/21 11/11/21 11/11/21 11/11/21 00:00 01:00 02:00 03:07 Temp 100.0 100.0 Pulse 114 120 96 105 Resp 16 26 12 17 B/P (MAP) 166/69 171/62 168/65 156/58 Pulse Ox 92 98 98 98 O2 Delivery Nasal Cannula Nasal Cannula Nasal Cannula Nasal Cannula O2 Flow Rate 3.0 3.0 3.0 3.0 11/11/21 11/11/21 11/11/21 11/11/21 04:00 04:00 05:00 06:05 Temp 99.8 99.8 Pulse 88 94 81 Resp 12 10 11 B/P (MAP) 155/61 162/58 165/62 Pulse Ox 98 97 99 O2 Delivery Nasal Cannula Nasal Cannula Nasal Cannula Nasal Cannula O2 Flow Rate 3.0 3.0 3.0 3.0 4/23/22 4/23/22 4/23/22 4/23/22 08:00 08:34 09:43 09:44 Pulse 83 90 87 Resp 10 B/P (MAP) 201/91 159/70 159/70 O2 Delivery Nasal Cannula Nasal Cannula O2 Flow Rate 3.0 3.0 11/11/21 11/11/21 11/11/21 11/11/21 09:45 09:45 09:46 09:49 Pulse 83 84 84 84 B/P (MAP) 159/70 159/70 159/70 159/70 Intake and Output 11/10/21 11/10/21 11/11/21 15:00 23:00 07:00 Output Total 550 ml 350 ml 80 ml Balance -550 ml -350 ml -80 ml Problem List Problems Medical Problems: (1) Acute hypokalemia Status: Acute (2) Aphasia due to acute stroke Status: Acute (3) Hyperglycemia due to type 2 diabetes mellitus Status: Acute (4) Hypertensive urgency Status: Acute Assessment Nausea, vomiting--better. GERD Chronic pancreatitis. Plan of Care Note Agree with trial of diet. Continue IV PPI; go to po if diet tolerated. Justicifation of Admission Dx: Justifications for Admission: Justification of Admission Dx: N/A SANTIAGO JUAREZ MD Nov 11, 2021 11:27
--- NOTE | 2021-11-11 11:31 | PDOC ---
DATE OF SERVICE: DOS: DATE: 11/11/21 TIME: 11:28 SUBJECTIVE ROS Follow-up for ESRD on hemodialysis Saturday Patient denies any new complaints this morning. CVS: no Orthopnea, no CP RESP: no SOB, no HOLLEY GI: no Nausea, no Vomiting : no Dysuria, no Urgency OBJECTIVE Vital Signs Vital Signs Date Time Temp Pulse Resp B/P (MAP) Pulse Ox O2 Delivery O2 Flow Rate FiO2 11/11/21 09:49 84 159/70 11/11/21 08:34 10 Nasal Cannula 3.0 11/11/21 06:05 99 11/11/21 04:00 99.8 99.8 I & 0 Intake and Output 11/11/21 07:00 Output Total 980 ml Balance -980 ml Output Urine Total 580 ml Emesis 400 ml # Bowel Movements 5 PHYSICAL EXAM Physical Exam GEN: Awake, Oriented x 2-3, flattish affect, in no distress EYES: Vision Unchanged, Conjunctiva Normal EN: No EN Drainage, Mucous Membranes moist NECK: no JVD, no JVP, Supple, no Thyromegaly CVS: S1S2, ? Murmur, No Gallop, No Rub,no Edema RESP: no Rales, no Rhonchi,no Acc. Muscle Use GI: BS + ve, NO Bruit, Non Tender, Non Distended : no CVA tenderness, no Suprapubic Tenderness DIAGNOSIS/ASSESSMENT Assessment & Plan ESRD: Current fluid and E-lyte status does not necessitate emergent need for dialysis. Will re-evaluate for dialysis in the am and continue on MWF schedule. ANEMIA; Aranap as ordered, Transfuse with next HD as needed HTN: Current BP meds as reviewed. See orders for changes. BONE & MINERAL: Follow phosphorus levels abdominal binder regimen as needed based on oral intake Poorly controlled diabetes: Defer to primary team Hypoalbuminemia suspect due to poorly controlled diabetes Discussed Plan of Care with ICU nurse at bedside COMMENT/RELEVANT DATA Meds Current Medications Medications (Trade) Dose Ordered Sig/Ravinder Start Time Stop Time Status Last Admin Dose Admin Acetaminophen (Tylenol Supp) 650 mg PRN Q6HRS PRN 11/10/21 06:45 Acetaminophen (Tylenol) 650 mg PRN Q6HRS PRN 11/10/21 09:00 Albumin Human 200 ml @ 200 mls/hr 1X PRN PRN 11/10/21 17:00 11/10/21 22:59 DC Alteplase, Recombinant 48.6 ml @ 48.6 mls/hr 1X ONCE 11/09/21 20:00 11/09/21 20:59 DC 11/09/21 20:21 48.6 MLS/HR Amlodipine Besylate (Norvasc) 10 mg DAILY 11/10/21 09:00 11/11/21 09:49 10 MG Amylase/Lipase/ Protease (Zenpep 10,000) 3 cap TIDWMEALS 11/10/21 09:00 11/11/21 09:42 3 CAP Atorvastatin Calcium (Lipitor) 40 mg QHS 11/10/21 21:00 Baclofen (Lioresal) 5 mg TID PRN 11/10/21 09:30 Carvedilol (Coreg) 25 mg BIDWMEALS 11/10/21 09:30 11/11/21 09:44 25 MG Cefepime HCl (Maxipime) 1 gm Q24H 11/10/21 12:00 11/10/21 11:44 1 GM Clonidine HCl (Catapres) 0.1 mg TID 11/10/21 09:00 11/11/21 09:46 0.1 MG Dextrose/Sodium Chloride 1,000 ml @ 125 mls/hr Q8H 11/10/21 03:45 11/10/21 09:59 DC 11/10/21 03:41 125 MLS/HR Doxazosin Mesylate (Cardura) 4 mg DAILY 11/10/21 09:00 11/11/21 09:45 4 MG Fentanyl Citrate (Fentanyl 2ml Vial) 50 mcg PRN Q2HR PRN 11/10/21 08:30 11/10/21 11:07 50 MCG Heparin Sodium (Porcine) (Heparin Sodium) 5,000 unit Q8HRS 11/11/21 14:00 Hydralazine HCl (Apresoline Inj) 20 mg PRN Q4HRS PRN 11/10/21 14:30 11/10/21 18:52 20 MG Hydralazine HCl (Apresoline) 100 mg TID 11/10/21 09:30 11/11/21 09:43 100 MG Info (CONTRAST GIVEN -- Rx MONITORING) 1 each PRN DAILY PRN 11/10/21 08:45 11/12/21 08:44 Info (PHARMACY MONITORING -- do not chart) 1 each PRN DAILY PRN 11/10/21 17:00 Insulin Glargine (Lantus Syringe) 6 unit DAILY10 11/11/21 10:00 Insulin Human Lispro (HumaLOG) 0-8 UNITS TIDBFRMEAL 11/10/21 11:30 11/11/21 09:53 3 UNITS Insulin Human Regular 100 unit/ Sodium Chloride 101 ml @ 0 mls/hr CONT PRN PRN 11/10/21 00:00 11/10/21 09:19 DC Iohexol (Omnipaque 300 Mg/ml) 75 ml 1X ONCE 11/10/21 08:30 11/10/21 08:31 DC 11/10/21 08:56 75 ML Iohexol (Omnipaque 350 Mg/ml) 75 ml 1X ONCE 11/09/21 19:00 11/09/21 19:01 DC Isosorbide Mononitrate (Imdur) 60 mg DAILY 11/10/21 09:30 11/11/21 09:45 60 MG Labetalol HCl (Normodyne Iv Push) 10 mg PRN Q10MIN PRN 11/10/21 06:45 11/10/21 13:43 10 MG Magnesium Sulfate 100 ml @ 25 mls/hr DAILY 11/10/21 09:00 11/13/21 08:59 11/11/21 09:49 25 MLS/HR Methocarbamol (Robaxin) 750 mg PRN TID PRN 11/10/21 09:00 11/11/21 09:44 750 MG Nicardipine HCl (Cardene) 50 mg STK-MED ONCE 11/09/21 21:00 11/10/21 04:38 DC Nicardipine HCl 50 mg/Sodium Chloride 250 ml @ 25 mls/hr CONT PRN PRN 11/10/21 06:45 11/11/21 03:26 25 MLS/HR Ondansetron HCl (Zofran Odt) 4 mg TID PRN 11/10/21 09:00 Ondansetron HCl (Zofran) 4 mg PRN Q6HRS PRN 11/10/21 06:45 11/10/21 20:27 4 MG Oxycodone/ Acetaminophen (Percocet 7.5/ 325) 1 tab PRN Q6HRS PRN 11/10/21 09:00 Pantoprazole Sodium (PROTONIX VIAL for IV PUSH) 40 mg BIDAC 11/10/21 16:30 11/10/21 16:24 40 MG Pantoprazole Sodium (Protonix) 40 mg DAILYAC 11/10/21 09:30 11/10/21 14:29 DC Potassium Chloride/Water 100 ml @ 100 mls/hr Q1H 11/10/21 13:00 11/10/21 18:59 DC 11/10/21 18:00 100 MLS/HR Potassium Chloride (Klor-Con) 40 meq 1X ONCE 11/09/21 20:30 11/09/21 20:31 DC Prochlorperazine Edisylate (Compazine) 10 mg PRN Q6HRS PRN 11/10/21 11:15 11/10/21 13:12 10 MG Sevelamer Carbonate (Renvela) 800 mg TIDWMEALS 11/10/21 09:30 11/11/21 09:46 800 MG Sodium Chloride 1,000 ml @ 400 mls/hr Q2H30M PRN 11/10/21 17:00 11/11/21 04:59 DC Sodium Chloride (Iv Sodium Chloride 0.9% 100ml) 100 ml STK-MED ONCE 11/09/21 21:00 11/10/21 04:38 DC Sodium Chloride (Iv Sodium Chloride 0.9% 250ml) 250 ml STK-MED ONCE 11/09/21 21:00 11/10/21 04:38 DC Trazodone HCl (Desyrel) 150 mg HS 11/10/21 21:00 Vancomycin HCl (Vanco Per Pharmacy) 1 each PRN DAILY PRN 11/10/21 11:15 11/10/21 15:50 1 EACH Vancomycin HCl (Vancomycin Random Level) 1 each 1X ONCE 11/13/21 05:00 11/13/21 05:01 Vancomycin HCl 1.5 gm/Sodium Chloride 500 ml @ 250 mls/hr 1X ONCE 11/10/21 13:00 11/10/21 14:59 DC 11/10/21 13:35 250 MLS/HR Lab Laboratory Tests Test 11/10/21 16:31 11/10/21 18:20 11/11/21 05:05 11/11/21 08:53 Glucose (Fingerstick) 353 mg/dL (70-99) 216 mg/dL (70-99) Hepatitis B Surface Antigen Nonreactive (Nonreactive) Hepatitis B Surface Antibody Nonreactive White Blood Count 13.6 x10^3/uL (4.0-11.0) Red Blood Count 3.55 x10^6/uL (4.30-5.70) Hemoglobin 9.7 g/dL (13.0-17.5) Hematocrit 29.2 % (39.0-53.0) Mean Corpuscular Volume 82 fL (79-100) Mean Corpuscular Hemoglobin 27 pg (25-35) Mean Corpuscular Hemoglobin Concent 33 g/dL (31-37) Red Cell Distribution Width 15.9 % (11.5-14.5) Platelet Count 253 x10^3/uL (140-400) Neutrophils (%) (Auto) 81 % (31-73) Lymphocytes (%) (Auto) 13 % (24-48) Monocytes (%) (Auto) 5 % (0-9) Eosinophils (%) (Auto) 0 % (0-3) Basophils (%) (Auto) 1 % (0-3) Neutrophils # (Auto) 11.1 x10^3/uL (1.8-7.7) Lymphocytes # (Auto) 1.8 x10^3/uL (1.0-4.8) Monocytes # (Auto) 0.7 x10^3/uL (0.0-1.1) Eosinophils # (Auto) 0.0 x10^3/uL (0.0-0.7) Basophils # (Auto) 0.1 x10^3/uL (0.0-0.2) Sodium Level 137 mmol/L (136-145) Potassium Level 3.7 mmol/L (3.5-5.1) Chloride Level 101 mmol/L (98-107) Carbon Dioxide Level 30 mmol/L (21-32) Anion Gap 6 (6-14) Blood Urea Nitrogen 11 mg/dL (8-26) Creatinine 3.5 mg/dL (0.7-1.3) Estimated GFR (Cockcroft-Gault) 22.1 BUN/Creatinine Ratio 3 (6-20) Glucose Level 200 mg/dL (70-99) Calcium Level 8.0 mg/dL (8.5-10.1) Total Bilirubin 0.4 mg/dL (0.2-1.0) Aspartate Amino Transf (AST/SGOT) 17 U/L (15-37) Alanine Aminotransferase (ALT/SGPT) 10 U/L (16-63) Alkaline Phosphatase 110 U/L (46-116) Total Protein 5.4 g/dL (6.4-8.2) Albumin 2.0 g/dL (3.4-5.0) Albumin/Globulin Ratio 0.6 (1.0-1.7) Results All relevant outside records, renal labs, imaging studies, telemetry/EKG's were reviewed. Justicifation of Admission Dx: Justifications for Admission: Justification of Admission Dx: N/A FLOR BANUELOS MD Nov 11, 2021 11:31
--- NOTE | 2021-11-11 11:34 | PDOC ---
PROGRESS NOTES Date of Service DATE: 11/11/21 TIME: 11:29 Assessment Problems Medical Problems: (1) Acute hypokalemia Status: Acute (2) Aphasia due to acute stroke-patient received intravenous alteplase. He feels his speech is not back to normal but heading that way very quickly. He denies any numbness or weakness. He is not having complaints of vision loss or hearing loss. He is doing very well. He remains in the intensive care unit under close monitoring. Status: Acute (3) Hyperglycemia due to type 2 diabetes mellitus-the blood glucose has been coming down. The most recent 2 draws were in the 200's range. Status: Acute (4) Hypertensive urgency-his blood pressure has come down substantially. The Cardene drip has been discontinued. Status: Acute Plan He will have an MRI of his brain without contrast at 24 hours to evaluate for stroke and hemorrhage. If there is no hemorrhage and his blood pressure is not requiring a Cardene drip then he can transfer out of the intensive care unit to the stroke floor at that time. He will need continued close monitoring of his blood sugars to keep them in a safe range. He will need close monitoring of his blood pressures to make certain they are not becoming critically elevated or low. He will need to work at paying attention to his health issues so as to better control his blood pressure, glucose, heart failure and renal failure. Subjective I am feeling okay. My speech is a lot better. I do not feel weak or numb. I am not in any pain. Objective Vital Signs Date Time Temp Pulse Resp B/P (MAP) Pulse Ox O2 Delivery O2 Flow Rate FiO2 11/11/21 09:49 84 159/70 11/11/21 08:34 10 Nasal Cannula 3.0 11/11/21 06:05 99 11/11/21 04:00 99.8 99.8 Intake and Output 11/11/21 07:00 Output Total 980 ml Balance -980 ml Output Urine Total 580 ml Emesis 400 ml # Bowel Movements 5 PHYSICAL EXAM He was alert, awake and cooperative. He was sitting in a chair without slumping. Speech was fairly fluent and clear. He was oriented to place and month but thought it was 2020. He was able to follow commands without difficulty. Examination of the cranial nerves revealed visual thompson were full to confrontation. Extraocular movements were intact. The eyes were conjugate. Pupils were 3 mm. Facial sensation was intact. Muscles of mastication and facial expression were symmetric. Hearing was intact to finger rub. The palate arch symmetrically and the tongue was midline with full motion. Sternocleidomastoid and trapezius were powerful. Muscle bulk and tone was normal. There was no arm drift. Power was full and symmetric. Reflexes were trace in the arms and absent in the legs. Coordination testing with [id number] was well performed. Sensation was intact to sharp, light touch, proprioception, graphesthesia, cold thermal and vibration. Gait was not testable at this time. Review of Relevant I have reviewed the following items donell (where applicable) has been applied. Labs Laboratory Tests Test 11/09/21 19:07 11/09/21 19:25 11/09/21 22:10 11/09/21 22:45 O2 Saturation 97 % (92-99) Arterial Blood pH 7.60 (7.35-7.45) Arterial Blood pCO2 at Patient Temp 23 mmHg (35-46) Arterial Blood pO2 at Patient Temp 82 mmHg (75-108) Arterial Blood HCO3 22 mmol/L (21-28) Arterial Blood Base Excess 1 mmol/L (-3-3) Oxyhemoglobin 96.2 % Methemoglobin 0.3 % (0.0-1.9) Carbon Monoxide, Quantitative 0.6 % (0.0-1.9) FiO2 21%/ra White Blood Count 7.3 x10^3/uL (4.0-11.0) Red Blood Count 3.89 x10^6/uL (4.30-5.70) Hemoglobin 10.8 g/dL (13.0-17.5) Hematocrit 32.4 % (39.0-53.0) Mean Corpuscular Volume 83 fL (79-100) Mean Corpuscular Hemoglobin 28 pg (25-35) Mean Corpuscular Hemoglobin Concent 33 g/dL (31-37) Red Cell Distribution Width 15.8 % (11.5-14.5) Platelet Count 250 x10^3/uL (140-400) Neutrophils (%) (Auto) 61 % (31-73) Lymphocytes (%) (Auto) 29 % (24-48) Monocytes (%) (Auto) 7 % (0-9) Eosinophils (%) (Auto) 2 % (0-3) Basophils (%) (Auto) 1 % (0-3) Neutrophils # (Auto) 4.4 x10^3/uL (1.8-7.7) Lymphocytes # (Auto) 2.1 x10^3/uL (1.0-4.8) Monocytes # (Auto) 0.5 x10^3/uL (0.0-1.1) Eosinophils # (Auto) 0.2 x10^3/uL (0.0-0.7) Basophils # (Auto) 0.1 x10^3/uL (0.0-0.2) Prothrombin Time 14.3 SEC (11.7-14.0) Prothromb Time International Ratio 1.1 (0.8-1.1) Activated Partial Thromboplast Time 32 SEC (24-38) Sodium Level 123 mmol/L (136-145) 117 mmol/L (136-145) Potassium Level 3.2 mmol/L (3.5-5.1) 3.3 mmol/L (3.5-5.1) Chloride Level 87 mmol/L (98-107) 86 mmol/L (98-107) Carbon Dioxide Level 22 mmol/L (21-32) 15 mmol/L (21-32) Anion Gap 14 (6-14) 16 (6-14) Blood Urea Nitrogen 19 mg/dL (8-26) 20 mg/dL (8-26) Creatinine 4.9 mg/dL (0.7-1.3) 4.8 mg/dL (0.7-1.3) Estimated GFR (Cockcroft-Gault) 15.0 15.4 BUN/Creatinine Ratio 4 (6-20) Glucose Level 687 mg/dL (70-99) 604 mg/dL (70-99) Calcium Level 7.9 mg/dL (8.5-10.1) 7.9 mg/dL (8.5-10.1) Total Bilirubin 0.3 mg/dL (0.2-1.0) Aspartate Amino Transf (AST/SGOT) 12 U/L (15-37) Alanine Aminotransferase (ALT/SGPT) 20 U/L (16-63) Alkaline Phosphatase 170 U/L (46-116) Troponin I High Sensitivity 19 ng/L (4-75) Total Protein 5.7 g/dL (6.4-8.2) Albumin 2.5 g/dL (3.4-5.0) Albumin/Globulin Ratio 0.8 (1.0-1.7) Acetone Level Neg (NEG) Glucose (Fingerstick) 528 mg/dL (70-99) Phosphorus Level 4.2 mg/dL (2.6-4.7) Magnesium Level 1.2 mg/dL (1.8-2.4) Test 11/10/21 01:13 11/10/21 02:17 11/10/21 03:14 11/10/21 04:18 Glucose (Fingerstick) 449 mg/dL (70-99) 307 mg/dL (70-99) 197 mg/dL (70-99) 116 mg/dL (70-99) Test 11/10/21 05:26 11/10/21 06:30 11/10/21 07:56 11/10/21 09:00 Glucose (Fingerstick) 100 mg/dL (70-99) 126 mg/dL (70-99) 123 mg/dL (70-99) Urine Collection Type Unknown Urine Color (Auto) Yellow Urine Turbidity Clear Urine pH (Auto) 6.5 (<5.0-8.0) Urine Specific [place] 1.018 (1.000-1.030) Urine Protein (Auto) 600 mg/dL (Negative) Urine Glucose (Auto)(UA) >=1000 mg/dL (Negative) Urine Ketones (Auto) Negative mg/dL (Negative) Urine Blood (Auto) Trace (Negative) Urine Nitrite Negative (Negative) Urine Bilirubin (Auto) Negative (Negative) Urine Urobilinogen (Auto) Normal mg/dL (Normal) Urine Leukocyte Esterase (Auto) Negative (Negative) Urine RBC 3-5 /HPF (0-2) Urine WBC 1-4 /HPF (0-4) Urine Squamous Epithelial Cells Few /LPF Urine Transitional Epithelial Cells Few /LPF Urine Bacteria 0 /HPF (0-FEW) Urine Hyaline Casts Occasional /HPF Test 11/10/21 09:07 11/10/21 10:50 11/10/21 16:31 11/10/21 18:20 Glucose (Fingerstick) 123 mg/dL (70-99) 353 mg/dL (70-99) White Blood Count 16.1 x10^3/uL (4.0-11.0) Red Blood Count 4.21 x10^6/uL (4.30-5.70) Hemoglobin 11.4 g/dL (13.0-17.5) Hematocrit 34.2 % (39.0-53.0) Mean Corpuscular Volume 81 fL (79-100) Mean Corpuscular Hemoglobin 27 pg (25-35) Mean Corpuscular Hemoglobin Concent 33 g/dL (31-37) Red Cell Distribution Width 15.7 % (11.5-14.5) Platelet Count 299 x10^3/uL (140-400) Neutrophils (%) (Auto) 78 % (31-73) Lymphocytes (%) (Auto) 13 % (24-48) Monocytes (%) (Auto) 8 % (0-9) Eosinophils (%) (Auto) 0 % (0-3) Basophils (%) (Auto) 0 % (0-3) Neutrophils # (Auto) 12.6 x10^3/uL (1.8-7.7) Lymphocytes # (Auto) 2.2 x10^3/uL (1.0-4.8) Monocytes # (Auto) 1.3 x10^3/uL (0.0-1.1) Eosinophils # (Auto) 0.0 x10^3/uL (0.0-0.7) Basophils # (Auto) 0.0 x10^3/uL (0.0-0.2) Sodium Level 133 mmol/L (136-145) Potassium Level 2.3 mmol/L (3.5-5.1) Chloride Level 95 mmol/L (98-107) Carbon Dioxide Level 26 mmol/L (21-32) Anion Gap 12 (6-14) Blood Urea Nitrogen 19 mg/dL (8-26) Creatinine 5.1 mg/dL (0.7-1.3) Estimated GFR (Cockcroft-Gault) 14.3 Glucose Level 140 mg/dL (70-99) Hemoglobin A1c 10.2 % (4.8-5.6) Calcium Level 8.1 mg/dL (8.5-10.1) Phosphorus Level 2.6 mg/dL (2.6-4.7) Magnesium Level 2.6 mg/dL (1.8-2.4) Triglycerides Level 93 mg/dL (0-150) Cholesterol Level 135 mg/dL (0-200) LDL Cholesterol, Calculated 33 mg/dL (0-100) VLDL Cholesterol, Calculated 19 mg/dL (0-40) Non-HDL Cholesterol Calculated 52 mg/dL (0-129) HDL Cholesterol 83 mg/dL (40-60) Cholesterol/HDL Ratio 1.6 Hepatitis B Surface Antigen Nonreactive (Nonreactive) Hepatitis B Surface Antibody Nonreactive Test 11/11/21 05:05 11/11/21 08:53 White Blood Count 13.6 x10^3/uL (4.0-11.0) Red Blood Count 3.55 x10^6/uL (4.30-5.70) Hemoglobin 9.7 g/dL (13.0-17.5) Hematocrit 29.2 % (39.0-53.0) Mean Corpuscular Volume 82 fL (79-100) Mean Corpuscular Hemoglobin 27 pg (25-35) Mean Corpuscular Hemoglobin Concent 33 g/dL (31-37) Red Cell Distribution Width 15.9 % (11.5-14.5) Platelet Count 253 x10^3/uL (140-400) Neutrophils (%) (Auto) 81 % (31-73) Lymphocytes (%) (Auto) 13 % (24-48) Monocytes (%) (Auto) 5 % (0-9) Eosinophils (%) (Auto) 0 % (0-3) Basophils (%) (Auto) 1 % (0-3) Neutrophils # (Auto) 11.1 x10^3/uL (1.8-7.7) Lymphocytes # (Auto) 1.8 x10^3/uL (1.0-4.8) Monocytes # (Auto) 0.7 x10^3/uL (0.0-1.1) Eosinophils # (Auto) 0.0 x10^3/uL (0.0-0.7) Basophils # (Auto) 0.1 x10^3/uL (0.0-0.2) Sodium Level 137 mmol/L (136-145) Potassium Level 3.7 mmol/L (3.5-5.1) Chloride Level 101 mmol/L (98-107) Carbon Dioxide Level 30 mmol/L (21-32) Anion Gap 6 (6-14) Blood Urea Nitrogen 11 mg/dL (8-26) Creatinine 3.5 mg/dL (0.7-1.3) Estimated GFR (Cockcroft-Gault) 22.1 BUN/Creatinine Ratio 3 (6-20) Glucose Level 200 mg/dL (70-99) Calcium Level 8.0 mg/dL (8.5-10.1) Total Bilirubin 0.4 mg/dL (0.2-1.0) Aspartate Amino Transf (AST/SGOT) 17 U/L (15-37) Alanine Aminotransferase (ALT/SGPT) 10 U/L (16-63) Alkaline Phosphatase 110 U/L (46-116) Total Protein 5.4 g/dL (6.4-8.2) Albumin 2.0 g/dL (3.4-5.0) Albumin/Globulin Ratio 0.6 (1.0-1.7) Glucose (Fingerstick) 216 mg/dL (70-99) Laboratory Tests Test 11/10/21 16:31 11/10/21 18:20 11/11/21 05:05 11/11/21 08:53 Glucose (Fingerstick) 353 mg/dL (70-99) 216 mg/dL (70-99) Hepatitis B Surface Antigen Nonreactive (Nonreactive) Hepatitis B Surface Antibody Nonreactive White Blood Count 13.6 x10^3/uL (4.0-11.0) Red Blood Count 3.55 x10^6/uL (4.30-5.70) Hemoglobin 9.7 g/dL (13.0-17.5) Hematocrit 29.2 % (39.0-53.0) Mean Corpuscular Volume 82 fL (79-100) Mean Corpuscular Hemoglobin 27 pg (25-35) Mean Corpuscular Hemoglobin Concent 33 g/dL (31-37) Red Cell Distribution Width 15.9 % (11.5-14.5) Platelet Count 253 x10^3/uL (140-400) Neutrophils (%) (Auto) 81 % (31-73) Lymphocytes (%) (Auto) 13 % (24-48) Monocytes (%) (Auto) 5 % (0-9) Eosinophils (%) (Auto) 0 % (0-3) Basophils (%) (Auto) 1 % (0-3) Neutrophils # (Auto) 11.1 x10^3/uL (1.8-7.7) Lymphocytes # (Auto) 1.8 x10^3/uL (1.0-4.8) Monocytes # (Auto) 0.7 x10^3/uL (0.0-1.1) Eosinophils # (Auto) 0.0 x10^3/uL (0.0-0.7) Basophils # (Auto) 0.1 x10^3/uL (0.0-0.2) Sodium Level 137 mmol/L (136-145) Potassium Level 3.7 mmol/L (3.5-5.1) Chloride Level 101 mmol/L (98-107) Carbon Dioxide Level 30 mmol/L (21-32) Anion Gap 6 (6-14) Blood Urea Nitrogen 11 mg/dL (8-26) Creatinine 3.5 mg/dL (0.7-1.3) Estimated GFR (Cockcroft-Gault) 22.1 BUN/Creatinine Ratio 3 (6-20) Glucose Level 200 mg/dL (70-99) Calcium Level 8.0 mg/dL (8.5-10.1) Total Bilirubin 0.4 mg/dL (0.2-1.0) Aspartate Amino Transf (AST/SGOT) 17 U/L (15-37) Alanine Aminotransferase (ALT/SGPT) 10 U/L (16-63) Alkaline Phosphatase 110 U/L (46-116) Total Protein 5.4 g/dL (6.4-8.2) Albumin 2.0 g/dL (3.4-5.0) Albumin/Globulin Ratio 0.6 (1.0-1.7) Medications Current Medications Iohexol (Omnipaque 350 Mg/ml) 75 ml 1X ONCE IV ; Start 11/09/21 at 19:00; Stop 11/09/21 at 19:01; Status DC Info (CONTRAST GIVEN -- Rx MONITORING) 1 each PRN DAILY PRN MC SEE COMMENTS; Start 11/09/21 at 19:00; Stop 11/10/21 at 15:04; Status DC Sodium Chloride 250 ml @ 500 mls/hr 1X ONCE IV ; Start 11/09/21 at 19:15; Stop 11/09/21 at 19:44; Status DC Alteplase, Recombinant 5.4 ml @ 324 mls/hr 1X ONCE IV Last administered on 11/09/21at 20:20; Start 11/09/21 at 20:00; Stop 11/09/21 at 20:01; Status DC Alteplase, Recombinant 48.6 ml @ 48.6 mls/hr 1X ONCE IV Last administered on 11/09/21at 20:21; Start 11/09/21 at 20:00; Stop 11/09/21 at 20:59; Status DC Sodium Chloride 100 ml @ 100 mls/hr 1X ONCE IV Last administered on 11/09/21at 21:30; Start 11/09/21 at 20:00; Stop 11/09/21 at 20:59; Status DC Nicardipine HCl 50 mg/Sodium Chloride 250 ml @ 25 mls/hr CONT PRN PRN IV HYPERTENSION Last administered on 11/10/21at 01:36; Start 11/09/21 at 20:00; Stop 11/10/21 at 06:48; Status DC Insulin Human Regular 100 unit/ Sodium Chloride 101 ml @ 0 mls/hr 1X ONCE IV Last administered on 11/10/21at 00:24; Start 11/09/21 at 20:15; Stop 11/09/21 at 20:16; Status DC Labetalol HCl (Normodyne Iv Push) 10 mg 1X ONCE IVP Last administered on 11/09/21at 20:40; Start 11/09/21 at 20:15; Stop 11/09/21 at 20:16; Status DC Labetalol HCl (Normodyne Iv Push) 20 mg STK-MED ONCE IVP ; Start 11/09/21 at 20 :05; Stop 11/09/21 at 20:05; Status DC Potassium Chloride (Klor-Con) 40 meq 1X ONCE PO ; Start 11/09/21 at 20:30; Stop 11/09/21 at 20:31; Status DC Ondansetron HCl (Zofran) 4 mg PRN Q8HRS PRN IVP NAUSEA/VOMITING Last administered on 11/09/21at 23:33; Start 11/09/21 at 20:30; Stop 11/10/21 at 06:48; Status DC Labetalol HCl (Normodyne Iv Push) 10 mg 1X ONCE IVP Last administered on 11/09/21at 18:05; Start 11/09/21 at 20:30; Stop 11/09/21 at 20:31; Status DC Insulin Human Lispro (HumaLOG) 15 units 1X ONCE SQ ; Start 11/09/21 at 21:30; Stop 11/09/21 at 21:31; Status DC Sodium Chloride 1,000 ml @ 125 mls/hr Q8H IV ; Start 11/10/21 at 00:00; Stop 11/10/21 at 09:59; Status DC Dextrose/Sodium Chloride 1,000 ml @ 125 mls/hr Q8H IV ; Start 11/10/21 at 00:00 ; Stop 11/10/21 at 09:59; Status DC Insulin Human Regular 100 unit/ Sodium Chloride 101 ml @ 0 mls/hr CONT PRN PRN IV PER PROTOCOL; Start 11/10/21 at 00:00; Stop 11/10/21 at 09:19; Status DC Potassium Chloride/Water 100 ml @ 100 mls/hr PRN Q1HR PRN IV SEE COMMENTS Last administered on 11/10/21at 03:41; Start 11/10/21 at 00:00 Potassium Chloride/Water 100 ml @ 100 mls/hr PRN Q1HR PRN IV SEE COMMENTS; Start 11/10/21 at 00:00 Potassium Chloride/Water 100 ml @ 100 mls/hr PRN Q1HR PRN IV SEE COMMENTS Last administered on 11/10/21at 12:45; Start 11/10/21 at 00:00 Magnesium Sulfate 100 ml @ 25 mls/hr DAILY IV Last administered on 11/11/21at 09:49; Start 11/10/21 at 09:00; Stop 11/13/21 at 08:59 Sodium Chloride 1,000 ml @ 125 mls/hr Q8H IV Last administered on 11/10/21at 00:44; Start 11/10/21 at 00:45; Stop 11/10/21 at 10:07; Status DC Dextrose/Sodium Chloride 1,000 ml @ 125 mls/hr Q8H IV Last administered on 11/10/21at 03:41; Start 11/10/21 at 03:45; Stop 11/10/21 at 09:59; Status DC Nicardipine HCl (Cardene) 50 mg STK-MED ONCE IV ; Start 11/09/21 at 21:00; Stop 11/10/21 at 04:38; Status DC Sodium Chloride (Iv Sodium Chloride 0.9% 250ml) 250 ml STK-MED ONCE .ROUTE ; Start 11/09/21 at 21:00; Stop 11/10/21 at 04:38; Status DC Sodium Chloride (Iv Sodium Chloride 0.9% 100ml) 100 ml STK-MED ONCE .ROUTE ; Start 11/09/21 at 21:00; Stop 11/10/21 at 04:38; Status DC Labetalol HCl (Normodyne Iv Push) 10 mg PRN Q10MIN PRN IVP HYPERTENSION Last administered on 11/10/21at 13:43; Start 11/10/21 at 06:45 Nicardipine HCl 50 mg/Sodium Chloride 250 ml @ 25 mls/hr CONT PRN PRN IV HYPERTENSION Last administered on 11/11/21at 03:26; Start 11/10/21 at 06:45 Acetaminophen (Tylenol) 650 mg PRN Q6HRS PRN PO MILD PAIN / TEMP > 100.3'F; Start 11/10/21 at 06:45; Status Cancel Acetaminophen (Tylenol Supp) 650 mg PRN Q6HRS PRN [place] MILD PAIN / TEMP > 100.3'F; Start 11/10/21 at 06:45 Ondansetron HCl (Zofran) 4 mg PRN Q6HRS PRN IVP NAUSEA/VOMITING 1ST CHOICE Last administered on 11/10/21at 20:27; Start 11/10/21 at 06:45 Fentanyl Citrate (Fentanyl 2ml Vial) 50 mcg PRN Q2HR PRN IVP PAIN Last administered on 11/10/21at 11:07; Start 11/10/21 at 08:30 Iohexol (Omnipaque 300 Mg/ml) 75 ml 1X ONCE IV Last administered on 11/10/21at 08:56; Start 11/10/21 at 08:30; Stop 11/10/21 at 08:31; Status DC Info (CONTRAST GIVEN -- Rx MONITORING) 1 each PRN DAILY PRN MC SEE COMMENTS; Start 11/10/21 at 08:45; Stop 11/12/21 at 08:44 Amlodipine Besylate (Norvasc) 10 mg DAILY PO Last administered on 11/11/21at 09:49; Start 11/10/21 at 09:00 Atorvastatin Calcium (Lipitor) 40 mg QHS PO ; Start 11/10/21 at 21:00 Clonidine HCl (Catapres) 0.1 mg TID PO Last administered on 11/11/21 09:46; Start 11/10/21 at 09:00 Doxazosin Mesylate (Cardura) 4 mg DAILY PO Last administered on 11/11/21 09:45; Start 11/10/21 at 09:00 Amylase/Lipase/ Protease (Zenpep 10,000) 3 cap TIDWMEALS PO Last administered on 11/11/21 09:42; Start 11/10/21 at 09:00 Methocarbamol (Robaxin) 750 mg PRN TID PRN PO MUSCLE SPASMS Last administered on 11/11/21 09:44; Start 11/10/21 at 09:00 Ondansetron HCl (Zofran Odt) 4 mg TID PRN PO NAUSEA; Start 11/10/21 at 09:00 Oxycodone/ Acetaminophen (Percocet 7.5/ 325) 1 tab PRN Q6HRS PRN PO MODERATE TO SEVERE PAIN; Start 11/10/21 at 09:00 Sevelamer Carbonate (Renvela) 800 mg TIDWMEALS PO Last administered on 11/11/21 09:46; Start 11/10/21 at 09:30 Carvedilol (Coreg) 25 mg BIDWMEALS PO Last administered on 11/11/21 09:44; S tart 11/10/21 at 09:30 Hydralazine HCl (Apresoline) 100 mg TID PO Last administered on 11/11/21 09:43; Start 11/10/21 at 09:30 Isosorbide Mononitrate (Imdur) 60 mg DAILY PO Last administered on 11/11/21 09:45; Start 11/10/21 at 09:30 Pantoprazole Sodium (Protonix) 40 mg DAILYAC PO ; Start 11/10/21 at 09:30; Stop 11/10/21 at 14:29; Status DC Trazodone HCl (Desyrel) 150 mg HS PO ; Start 11/10/21 at 21:00 Acetaminophen (Tylenol) 650 mg PRN Q6HRS PRN PO MILD PAIN / TEMP > 100.3'F; Start 11/10/21 at 09:00 Insulin Human Lispro (HumaLOG) 0-8 UNITS TIDBFRMEAL SQ Last administered on 11/11/21at 09:53; Start 11/10/21 at 11:30 Baclofen (Lioresal) 5 mg TID PRN PO MUSCLE SPASMS; Start 11/10/21 at 09:30 Prochlorperazine Edisylate (Compazine) 10 mg PRN Q6HRS PRN IV NAUSEA/VOMITING, 2ND CHOICE Last administered on 11/10/21at 13:12; Start 11/10/21 at 11:15 Vancomycin HCl (Vanco Per Pharmacy) 1 each PRN DAILY PRN MC SEE COMMENTS Last administered on 11/10/21at 15:50; Start 11/10/21 at 11:15 Cefepime HCl (Maxipime) 1 gm Q24H IVP Last administered on 11/10/21 11:44; Start 11/10/21 at 12:00 Vancomycin HCl 1.5 gm/Sodium Chloride 500 ml @ 250 mls/hr 1X ONCE IV Last administered on 11/10/21at 13:35; Start 11/10/21 at 13:00; Stop 11/10/21 at 14:59; Status DC Potassium Chloride/Water 100 ml @ 100 mls/hr Q1H IV Last administered on 11/10/21at 18:00; Start 11/10/21 at 13:00; Stop 11/10/21 at 18:59; Status DC Pantoprazole Sodium (PROTONIX VIAL for IV PUSH) 40 mg 1X ONCE IVP Last administered on 11/10/21at 13:19; Start 11/10/21 at 13:30; Stop 11/10/21 at 13:31; Status DC Hydralazine HCl (Apresoline Inj) 20 mg PRN Q4HRS PRN IVP ELEVATED BP, SEE COMMENTS Last administered on 11/10/21at 18:52; Start 11/10/21 at 14:30 Pantoprazole Sodium (PROTONIX VIAL for IV PUSH) 40 mg DAILYAC IVP ; Start 11/11/21 at 07:30; Stop 11/10/21 at 14:32; Status DC Pantoprazole Sodium (PROTONIX VIAL for IV PUSH) 40 mg BIDAC IVP Last administered on 4/22/22at 16:24; Start 11/10/21 at 16:30 Vancomycin HCl (Vancomycin Random Level) 1 each 1X ONCE MC ; Start 11/13/21 at 05:00; Stop 11/13/21 at 05:01 Sodium Chloride 1,000 ml @ 1,000 mls/hr Q1H PRN IV hypotension; Start 11/10/21 at 17:00; Stop 11/10/21 at 22:59; Status DC Albumin Human 200 ml @ 200 mls/hr 1X PRN PRN IV Hypotension; Start 11/10/21 at 17:00; Stop 11/10/21 at 22:59; Status DC Sodium Chloride 1,000 ml @ 400 mls/hr Q2H30M PRN IV PATENCY; Start 11/10/21 at 17:00; Stop 11/11/21 at 04:59; Status DC Info (PHARMACY MONITORING -- do not chart) 1 each PRN DAILY PRN MC SEE COMMENTS; Start 11/10/21 at 17:00; Stop 11/10/21 at 16:51; Status DC Info (PHARMACY MONITORING -- do not chart) 1 each PRN DAILY PRN MC SEE COMMENTS; Start 11/10/21 at 17:00 Insulin Glargine (Lantus Syringe) 6 unit DAILY10 SQ ; Start 11/11/21 at 10:00 Heparin Sodium (Porcine) (Heparin Sodium) 5,000 unit Q8HRS SQ ; Start 11/11/21 at 14:00 Active Scripts Active Ondansetron Odt (Ondansetron) 4 Mg Tab.rapdis 1 Tab PO PRN Q6-8HRS PRN Isosorbide Mononitrate Er (Isosorbide Mononitrate) 30 Mg Tab.er.24h 1 Tab PO DAILY 30 Days Clonidine Hcl 0.1 Mg Tablet 0.1 Mg PO TID 30 Days Admelog (Insulin Lispro) 100 Unit/1 Ml Vial 0 Units SQ TIDBFRMEAL 30 Days Use sliding scale at home. Amlodipine Besylate 10 Mg Tablet 10 Mg PO DAILY 30 Days Carvedilol 25 Mg Tablet 25 Mg PO BIDWMEALS 30 Days Atorvastatin Calcium 40 Mg Tablet 40 Mg PO QHS 30 Days Lantus Solostar (Insulin Glargine,Hum.rec.anlog) 100 Unit/1 Ml Insuln.pen 12 Unit SQ DAILY Percocet 7.5-325 Mg Tablet (Oxycodone/Acetaminophen) 1 Each Tablet 1 Tab PO PRN Q6HRS PRN Methocarbamol 750 Mg Tablet 750 Mg PO PRN TID PRN 10 Days Baclofen 10 Mg Tablet 5 Mg PO TID PRN Renvela (Sevelamer Carbonate) 800 Mg Tablet 800 Mg PO TIDWMEALS 30 Days Reported Isosorbide Dinitrate 30 Mg Tablet 2 Tab PO DAILY 30 Days Trazodone Hcl 150 Mg Tablet 150 Mg PO HS Fish Oil 1,000 Mg Softgel (Tinnie-3 Fatty Acids/Fish Oil) 1 Each Capsule 1 Cap PO DAILY 30 Days Omeprazole 40 Mg Capsule.dr 1 Cap PO DAILY Zenpep Dr 10,000 Units Capsule (Lipase/Protease/Amylase) 1 Each Capsule.dr 3 Cap PO TIDWMEALS Doxazosin Mesylate 4 Mg Tablet 1 Tab PO DAILY Hydralazine Hcl 100 Mg Tablet 1 Tab PO TID Aspir 81 (Aspirin) 81 Mg Tablet.dr 1 Tab PO DAILY Vitals/I & O Vital Sign - Last 24 Hours 11/10/21 11/10/21 11/10/21 11/10/21 11:38 12:00 13:00 13:43 Temp 100.4 100.0 100.4 100.0 Pulse 106 106 108 Resp 16 18 B/P (MAP) 187/66 164/72 197/82 Pulse Ox 93 93 93 O2 Delivery Nasal Cannula Nasal Cannula Nasal Cannula O2 Flow Rate 2.0 2.0 2.0 11/10/21 11/10/21 11/10/21 11/10/21 14:00 14:00 14:30 14:39 Temp 100.2 100.2 Pulse 92 92 100 92 Resp 18 B/P (MAP) 174/75 174/75 187/76 174/75 Pulse Ox 93 O2 Delivery Nasal Cannula O2 Flow Rate 2.0 11/10/21 11/10/21 11/10/21 11/10/21 16:00 16:00 16:59 17:00 Temp 100.0 100.9 100.0 100.9 Pulse 101 92 103 Resp 18 20 B/P (MAP) 133/58 (83) 174/75 129/56 (80) Pulse Ox 98 97 O2 Delivery Nasal Cannula Nasal Cannula Nasal Cannula O2 Flow Rate 3.0 3.0 3.0 11/10/21 11/10/21 11/10/21 11/10/21 18:00 18:52 19:00 19:00 Temp 99.9 99.9 Pulse 108 116 112 112 Resp 18 18 B/P (MAP) 147/ 189/115 157/61 (93) 157/61 Pulse Ox 97 95 96 O2 Delivery Nasal Cannula Nasal Cannula Nasal Cannula O2 Flow Rate 3.0 3.0 3.0 11/10/21 11/10/21 11/10/21 11/10/21 20:00 20:00 20:28 20:28 Temp 98.9 98.9 Pulse 119 124 124 Resp 23 B/P (MAP) 153/66 160/62 160/62 Pulse Ox 97 O2 Delivery Nasal Cannula Nasal Cannula O2 Flow Rate 3.0 3.0 11/10/21 11/10/21 11/10/21 11/10/21 21:00 22:18 23:00 23:59 Pulse 116 98 116 Resp 12 17 15 B/P (MAP) 134/62 150/56 177/71 Pulse Ox 98 97 97 O2 Delivery Nasal Cannula Nasal Cannula Nasal Cannula Nasal Cannula O2 Flow Rate 3.0 3.0 3.0 3.0 11/11/21 11/11/21 11/11/21 11/11/21 00:00 01:00 02:00 03:07 Temp 100.0 100.0 Pulse 114 120 96 105 Resp 16 26 12 17 B/P (MAP) 166/69 171/62 168/65 156/58 Pulse Ox 92 98 98 98 O2 Delivery Nasal Cannula Nasal Cannula Nasal Cannula Nasal Cannula O2 Flow Rate 3.0 3.0 3.0 3.0 11/11/21 11/11/21 11/11/21 11/11/21 04:00 04:00 05:00 06:05 Temp 99.8 99.8 Pulse 88 94 81 Resp 12 10 11 B/P (MAP) 155/61 162/58 165/62 Pulse Ox 98 97 99 O2 Delivery Nasal Cannula Nasal Cannula Nasal Cannula Nasal Cannula O2 Flow Rate 3.0 3.0 3.0 3.0 11/11/21 11/11/21 11/11/21 11/11/21 08:00 08:34 09:43 09:44 Pulse 83 90 87 Resp 10 B/P (MAP) 201/91 159/70 159/70 O2 Delivery Nasal Cannula Nasal Cannula O2 Flow Rate 3.0 3.0 11/11/21 11/11/21 11/11/21 11/11/21 09:45 09:45 09:46 09:49 Pulse 83 84 84 84 B/P (MAP) 159/70 159/70 159/70 159/70 Intake and Output 0 11/10/21 11/10/21 11/11/21 15:00 23:00 07:00 Output Total 550 ml 350 ml 80 ml Balance -550 ml -350 ml -80 ml Justicifation of Admission Dx: Justifications for Admission: Justification of Admission Dx: N/A TRISTAN ROSADO MD Nov 11, 2021 11:34
[2021-11-11] MEDS: INSULIN GLARGINE SYRINGE. SQ SCH (12:28)
[2021-11-11] MEDS: CEFEPIME HCL IV Push 1 GM VIAL. IVP SCH (13:29)
--- NOTE | 2021-11-11 13:59 | PDOC ---
Infectious Disease Note Subjective: Subjective Pt little more alert today though not back to baseline continues to have low grade fevers on 3 L O2 by NC Vital Signs: Vital Signs Vital Signs Date Time Temp Pulse Resp B/P (MAP) Pulse Ox O2 Delivery O2 Flow Rate FiO2 11/11/21 09:49 84 159/70 11/11/21 08:34 10 Nasal Cannula 3.0 11/11/21 06:05 99 11/11/21 04:00 99.8 99.8 Physical Exam: PHYSICAL EXAM GENERAL: Awake gentleman who mumbles one word repeatedly, unable to understand, not in distress. HEENT: Both pupils are round and reacting. No conjunctival lesion. No oral lesion. NECK: Supple, no JVP, no lymphadenopathy. LUNGS: Clear. HEART: S1, S2, regular. ABDOMEN: Soft, nontender, no organomegaly. EXTREMITIES: No edema, cyanosis. SKIN: No gen rash NEUROLOGIC: The patient is encephalopathic, does move all the extremities. RT IJ in place Medications: Inpatient Meds: Medications reviewed. Labs: Lab Laboratory Tests Test 11/10/21 16:31 11/10/21 18:20 11/11/21 05:05 11/11/21 08:53 Glucose (Fingerstick) 353 mg/dL (70-99) 216 mg/dL (70-99) Hepatitis B Surface Antigen Nonreactive (Nonreactive) Hepatitis B Surface Antibody Nonreactive White Blood Count 13.6 x10^3/uL (4.0-11.0) Red Blood Count 3.55 x10^6/uL (4.30-5.70) Hemoglobin 9.7 g/dL (13.0-17.5) Hematocrit 29.2 % (39.0-53.0) Mean Corpuscular Volume 82 fL (79-100) Mean Corpuscular Hemoglobin 27 pg (25-35) Mean Corpuscular Hemoglobin Concent 33 g/dL (31-37) Red Cell Distribution Width 15.9 % (11.5-14.5) Platelet Count 253 x10^3/uL (140-400) Neutrophils (%) (Auto) 81 % (31-73) Lymphocytes (%) (Auto) 13 % (24-48) Monocytes (%) (Auto) 5 % (0-9) Eosinophils (%) (Auto) 0 % (0-3) Basophils (%) (Auto) 1 % (0-3) Neutrophils # (Auto) 11.1 x10^3/uL (1.8-7.7) Lymphocytes # (Auto) 1.8 x10^3/uL (1.0-4.8) Monocytes # (Auto) 0.7 x10^3/uL (0.0-1.1) Eosinophils # (Auto) 0.0 x10^3/uL (0.0-0.7) Basophils # (Auto) 0.1 x10^3/uL (0.0-0.2) Sodium Level 137 mmol/L (136-145) Potassium Level 3.7 mmol/L (3.5-5.1) Chloride Level 101 mmol/L (98-107) Carbon Dioxide Level 30 mmol/L (21-32) Anion Gap 6 (6-14) Blood Urea Nitrogen 11 mg/dL (8-26) Creatinine 3.5 mg/dL (0.7-1.3) Estimated GFR (Cockcroft-Gault) 22.1 BUN/Creatinine Ratio 3 (6-20) Glucose Level 200 mg/dL (70-99) Calcium Level 8.0 mg/dL (8.5-10.1) Total Bilirubin 0.4 mg/dL (0.2-1.0) Aspartate Amino Transf (AST/SGOT) 17 U/L (15-37) Alanine Aminotransferase (ALT/SGPT) 10 U/L (16-63) Alkaline Phosphatase 110 U/L (46-116) Total Protein 5.4 g/dL (6.4-8.2) Albumin 2.0 g/dL (3.4-5.0) Albumin/Globulin Ratio 0.6 (1.0-1.7) Test 11/11/21 12:33 Glucose (Fingerstick) 249 mg/dL (70-99) Objective: Assessment: 1. Fever.Could be from aspiration,BC negative so far 2. Encephalopathy, Aphasia due to acute stroke. 3. Hypertensive crisis. 4. Diabetes. 5. End-stage renal disease, on hemodialysis. 6. Hypertensive urgency 7. Pancreatitis on KUB Plan: Plan of Care Cont vancomycin and cefepime renal dosing F/U Cultures Monitor labs Supportive care SACHI BANUELOS MD Nov 11, 2021 13:59
--- NOTE | 2021-11-11 14:31 | PDOC ---
PROGRESS NOTES Date of Service DATE: 11/11/21 TIME: 14:28 Subjective Subjective Patient seen and examined Objective Objective Vital Signs Date Time Temp Pulse Resp B/P (MAP) Pulse Ox O2 Delivery O2 Flow Rate FiO2 11/11/21 09:49 84 159/70 11/11/21 08:34 10 Nasal Cannula 3.0 11/11/21 06:05 99 11/11/21 04:00 99.8 99.8 Intake and Output 11/11/21 07:00 Output Total 980 ml Balance -980 ml Output Urine Total 580 ml Emesis 400 ml # Bowel Movements 5 Physical Exam Abdomen: Normal bowel sounds Heart: Regular rate General: No acute distress Lungs: Other (Minimally decreased breath sounds) Assessment Assessment Problems Medical Problems: (1) Acute hypokalemia Status: Acute (2) Aphasia due to acute stroke Status: Acute (3) Hyperglycemia due to type 2 diabetes mellitus Status: Acute (4) Hypertensive urgency Status: Acute 1. Acute Stroke with aphasia: also with element of metabolic encephalopathy. S/P tPA last night. Improving. Followed by the neurology service. 2. HTN urgency: better with cardene 3. Uncontrolled DM2: improved 4. Hyponatremia 5. Hypokalemia 6. ESRD and HD per nephrology 7. Fever with possible sepsis: ID following 8. CAD s/p PCI/stent to the LCx; [facility] 01/09 showed patent LCx stent and no lesions needing intervention. Follows with Dr. Jahaira FOSTER Clinically stable 9. Chronic diastolic CHF: compensated 10. HLP 11. Possible gastric erosion: coffee ground stain to prior emesis Defer further to PCP 12. Nausea and vomiting: antiemetic received. Resolved. Comment Review of Relevant I have reviewed the following items donell (where applicable) has been applied. Labs Laboratory Tests Test 11/09/21 19:07 11/09/21 19:25 11/09/21 22:10 11/09/21 22:45 O2 Saturation 97 % (92-99) Arterial Blood pH 7.60 (7.35-7.45) Arterial Blood pCO2 at Patient Temp 23 mmHg (35-46) Arterial Blood pO2 at Patient Temp 82 mmHg (75-108) Arterial Blood HCO3 22 mmol/L (21-28) Arterial Blood Base Excess 1 mmol/L (-3-3) Oxyhemoglobin 96.2 % Methemoglobin 0.3 % (0.0-1.9) Carbon Monoxide, Quantitative 0.6 % (0.0-1.9) FiO2 21%/ra White Blood Count 7.3 x10^3/uL (4.0-11.0) Red Blood Count 3.89 x10^6/uL (4.30-5.70) Hemoglobin 10.8 g/dL (13.0-17.5) Hematocrit 32.4 % (39.0-53.0) Mean Corpuscular Volume 83 fL (79-100) Mean Corpuscular Hemoglobin 28 pg (25-35) Mean Corpuscular Hemoglobin Concent 33 g/dL (31-37) Red Cell Distribution Width 15.8 % (11.5-14.5) Platelet Count 250 x10^3/uL (140-400) Neutrophils (%) (Auto) 61 % (31-73) Lymphocytes (%) (Auto) 29 % (24-48) Monocytes (%) (Auto) 7 % (0-9) Eosinophils (%) (Auto) 2 % (0-3) Basophils (%) (Auto) 1 % (0-3) Neutrophils # (Auto) 4.4 x10^3/uL (1.8-7.7) Lymphocytes # (Auto) 2.1 x10^3/uL (1.0-4.8) Monocytes # (Auto) 0.5 x10^3/uL (0.0-1.1) Eosinophils # (Auto) 0.2 x10^3/uL (0.0-0.7) Basophils # (Auto) 0.1 x10^3/uL (0.0-0.2) Prothrombin Time 14.3 SEC (11.7-14.0) Prothromb Time International Ratio 1.1 (0.8-1.1) Activated Partial Thromboplast Time 32 SEC (24-38) Sodium Level 123 mmol/L (136-145) 117 mmol/L (136-145) Potassium Level 3.2 mmol/L (3.5-5.1) 3.3 mmol/L (3.5-5.1) Chloride Level 87 mmol/L (98-107) 86 mmol/L (98-107) Carbon Dioxide Level 22 mmol/L (21-32) 15 mmol/L (21-32) Anion Gap 14 (6-14) 16 (6-14) Blood Urea Nitrogen 19 mg/dL (8-26) 20 mg/dL (8-26) Creatinine 4.9 mg/dL (0.7-1.3) 4.8 mg/dL (0.7-1.3) Estimated GFR (Cockcroft-Gault) 15.0 15.4 BUN/Creatinine Ratio 4 (6-20) Glucose Level 687 mg/dL (70-99) 604 mg/dL (70-99) Calcium Level 7.9 mg/dL (8.5-10.1) 7.9 mg/dL (8.5-10.1) Total Bilirubin 0.3 mg/dL (0.2-1.0) Aspartate Amino Transf (AST/SGOT) 12 U/L (15-37) Alanine Aminotransferase (ALT/SGPT) 20 U/L (16-63) Alkaline Phosphatase 170 U/L (46-116) Troponin I High Sensitivity 19 ng/L (4-75) Total Protein 5.7 g/dL (6.4-8.2) Albumin 2.5 g/dL (3.4-5.0) Albumin/Globulin Ratio 0.8 (1.0-1.7) Acetone Level Neg (NEG) Glucose (Fingerstick) 528 mg/dL (70-99) Phosphorus Level 4.2 mg/dL (2.6-4.7) Magnesium Level 1.2 mg/dL (1.8-2.4) Test 11/10/21 01:13 11/10/21 02:17 11/10/21 03:14 11/10/21 04:18 Glucose (Fingerstick) 449 mg/dL (70-99) 307 mg/dL (70-99) 197 mg/dL (70-99) 116 mg/dL (70-99) Test 11/10/21 05:26 11/10/21 06:30 11/10/21 07:56 11/10/21 09:00 Glucose (Fingerstick) 100 mg/dL (70-99) 126 mg/dL (70-99) 123 mg/dL (70-99) Urine Collection Type Unknown Urine Color (Auto) Yellow Urine Turbidity Clear Urine pH (Auto) 6.5 (<5.0-8.0) Urine Specific [place] 1.018 (1.000-1.030) Urine Protein (Auto) 600 mg/dL (Negative) Urine Glucose (Auto)(UA) >=1000 mg/dL (Negative) Urine Ketones (Auto) Negative mg/dL (Negative) Urine Blood (Auto) Trace (Negative) Urine Nitrite Negative (Negative) Urine Bilirubin (Auto) Negative (Negative) Urine Urobilinogen (Auto) Normal mg/dL (Normal) Urine Leukocyte Esterase (Auto) Negative (Negative) Urine RBC 3-5 /HPF (0-2) Urine WBC 1-4 /HPF (0-4) Urine Squamous Epithelial Cells Few /LPF Urine Transitional Epithelial Cells Few /LPF Urine Bacteria 0 /HPF (0-FEW) Urine Hyaline Casts Occasional /HPF Test 11/10/21 09:07 11/10/21 10:50 11/10/21 16:31 11/10/21 18:20 Glucose (Fingerstick) 123 mg/dL (70-99) 353 mg/dL (70-99) White Blood Count 16.1 x10^3/uL (4.0-11.0) Red Blood Count 4.21 x10^6/uL (4.30-5.70) Hemoglobin 11.4 g/dL (13.0-17.5) Hematocrit 34.2 % (39.0-53.0) Mean Corpuscular Volume 81 fL (79-100) Mean Corpuscular Hemoglobin 27 pg (25-35) Mean Corpuscular Hemoglobin Concent 33 g/dL (31-37) Red Cell Distribution Width 15.7 % (11.5-14.5) Platelet Count 299 x10^3/uL (140-400) Neutrophils (%) (Auto) 78 % (31-73) Lymphocytes (%) (Auto) 13 % (24-48) Monocytes (%) (Auto) 8 % (0-9) Eosinophils (%) (Auto) 0 % (0-3) Basophils (%) (Auto) 0 % (0-3) Neutrophils # (Auto) 12.6 x10^3/uL (1.8-7.7) Lymphocytes # (Auto) 2.2 x10^3/uL (1.0-4.8) Monocytes # (Auto) 1.3 x10^3/uL (0.0-1.1) Eosinophils # (Auto) 0.0 x10^3/uL (0.0-0.7) Basophils # (Auto) 0.0 x10^3/uL (0.0-0.2) Sodium Level 133 mmol/L (136-145) Potassium Level 2.3 mmol/L (3.5-5.1) Chloride Level 95 mmol/L (98-107) Carbon Dioxide Level 26 mmol/L (21-32) Anion Gap 12 (6-14) Blood Urea Nitrogen 19 mg/dL (8-26) Creatinine 5.1 mg/dL (0.7-1.3) Estimated GFR (Cockcroft-Gault) 14.3 Glucose Level 140 mg/dL (70-99) Hemoglobin A1c 10.2 % (4.8-5.6) Calcium Level 8.1 mg/dL (8.5-10.1) Phosphorus Level 2.6 mg/dL (2.6-4.7) Magnesium Level 2.6 mg/dL (1.8-2.4) Triglycerides Level 93 mg/dL (0-150) Cholesterol Level 135 mg/dL (0-200) LDL Cholesterol, Calculated 33 mg/dL (0-100) VLDL Cholesterol, Calculated 19 mg/dL (0-40) Non-HDL Cholesterol Calculated 52 mg/dL (0-129) HDL Cholesterol 83 mg/dL (40-60) Cholesterol/HDL Ratio 1.6 Hepatitis B Surface Antigen Nonreactive (Nonreactive) Hepatitis B Surface Antibody Nonreactive Test 11/11/21 05:05 11/11/21 08:53 11/11/21 12:33 White Blood Count 13.6 x10^3/uL (4.0-11.0) Red Blood Count 3.55 x10^6/uL (4.30-5.70) Hemoglobin 9.7 g/dL (13.0-17.5) Hematocrit 29.2 % (39.0-53.0) Mean Corpuscular Volume 82 fL (79-100) Mean Corpuscular Hemoglobin 27 pg (25-35) Mean Corpuscular Hemoglobin Concent 33 g/dL (31-37) Red Cell Distribution Width 15.9 % (11.5-14.5) Platelet Count 253 x10^3/uL (140-400) Neutrophils (%) (Auto) 81 % (31-73) Lymphocytes (%) (Auto) 13 % (24-48) Monocytes (%) (Auto) 5 % (0-9) Eosinophils (%) (Auto) 0 % (0-3) Basophils (%) (Auto) 1 % (0-3) Neutrophils # (Auto) 11.1 x10^3/uL (1.8-7.7) Lymphocytes # (Auto) 1.8 x10^3/uL (1.0-4.8) Monocytes # (Auto) 0.7 x10^3/uL (0.0-1.1) Eosinophils # (Auto) 0.0 x10^3/uL (0.0-0.7) Basophils # (Auto) 0.1 x10^3/uL (0.0-0.2) Sodium Level 137 mmol/L (136-145) Potassium Level 3.7 mmol/L (3.5-5.1) Chloride Level 101 mmol/L (98-107) Carbon Dioxide Level 30 mmol/L (21-32) Anion Gap 6 (6-14) Blood Urea Nitrogen 11 mg/dL (8-26) Creatinine 3.5 mg/dL (0.7-1.3) Estimated GFR (Cockcroft-Gault) 22.1 BUN/Creatinine Ratio 3 (6-20) Glucose Level 200 mg/dL (70-99) Calcium Level 8.0 mg/dL (8.5-10.1) Total Bilirubin 0.4 mg/dL (0.2-1.0) Aspartate Amino Transf (AST/SGOT) 17 U/L (15-37) Alanine Aminotransferase (ALT/SGPT) 10 U/L (16-63) Alkaline Phosphatase 110 U/L (46-116) Total Protein 5.4 g/dL (6.4-8.2) Albumin 2.0 g/dL (3.4-5.0) Albumin/Globulin Ratio 0.6 (1.0-1.7) Glucose (Fingerstick) 216 mg/dL (70-99) 249 mg/dL (70-99) Laboratory Tests Test 11/10/21 16:31 11/10/21 18:20 11/11/21 05:05 11/11/21 08:53 Glucose (Fingerstick) 353 mg/dL (70-99) 216 mg/dL (70-99) Hepatitis B Surface Antigen Nonreactive (Nonreactive) Hepatitis B Surface Antibody Nonreactive White Blood Count 13.6 x10^3/uL (4.0-11.0) Red Blood Count 3.55 x10^6/uL (4.30-5.70) Hemoglobin 9.7 g/dL (13.0-17.5) Hematocrit 29.2 % (39.0-53.0) Mean Corpuscular Volume 82 fL (79-100) Mean Corpuscular Hemoglobin 27 pg (25-35) Mean Corpuscular Hemoglobin Concent 33 g/dL (31-37) Red Cell Distribution Width 15.9 % (11.5-14.5) Platelet Count 253 x10^3/uL (140-400) Neutrophils (%) (Auto) 81 % (31-73) Lymphocytes (%) (Auto) 13 % (24-48) Monocytes (%) (Auto) 5 % (0-9) Eosinophils (%) (Auto) 0 % (0-3) Basophils (%) (Auto) 1 % (0-3) Neutrophils # (Auto) 11.1 x10^3/uL (1.8-7.7) Lymphocytes # (Auto) 1.8 x10^3/uL (1.0-4.8) Monocytes # (Auto) 0.7 x10^3/uL (0.0-1.1) Eosinophils # (Auto) 0.0 x10^3/uL (0.0-0.7) Basophils # (Auto) 0.1 x10^3/uL (0.0-0.2) Sodium Level 137 mmol/L (136-145) Potassium Level 3.7 mmol/L (3.5-5.1) Chloride Level 101 mmol/L (98-107) Carbon Dioxide Level 30 mmol/L (21-32) Anion Gap 6 (6-14) Blood Urea Nitrogen 11 mg/dL (8-26) Creatinine 3.5 mg/dL (0.7-1.3) Estimated GFR (Cockcroft-Gault) 22.1 BUN/Creatinine Ratio 3 (6-20) Glucose Level 200 mg/dL (70-99) Calcium Level 8.0 mg/dL (8.5-10.1) Total Bilirubin 0.4 mg/dL (0.2-1.0) Aspartate Amino Transf (AST/SGOT) 17 U/L (15-37) Alanine Aminotransferase (ALT/SGPT) 10 U/L (16-63) Alkaline Phosphatase 110 U/L (46-116) Total Protein 5.4 g/dL (6.4-8.2) Albumin 2.0 g/dL (3.4-5.0) Albumin/Globulin Ratio 0.6 (1.0-1.7) Test 11/11/21 12:33 Glucose (Fingerstick) 249 mg/dL (70-99) Microbiology 11/10/21 Blood Culture - Preliminary, Resulted NO GROWTH AFTER 1 DAY Medications Current Medications Iohexol (Omnipaque 350 Mg/ml) 75 ml 1X ONCE IV ; Start 11/09/21 at 19:00; Stop 11/09/21 at 19:01; Status DC Info (CONTRAST GIVEN -- Rx MONITORING) 1 each PRN DAILY PRN MC SEE COMMENTS; Start 11/09/21 at 19:00; Stop 11/10/21 at 15:04; Status DC Sodium Chloride 250 ml @ 500 mls/hr 1X ONCE IV ; Start 11/09/21 at 19:15; Stop 11/09/21 at 19:44; Status DC Alteplase, Recombinant 5.4 ml @ 324 mls/hr 1X ONCE IV Last administered on 11/09/21at 20:20; Start 11/09/21 at 20:00; Stop 11/09/21 at 20:01; Status DC Alteplase, Recombinant 48.6 ml @ 48.6 mls/hr 1X ONCE IV Last administered on 11/09/21at 20:21; Start 11/09/21 at 20:00; Stop 11/09/21 at 20:59; Status DC Sodium Chloride 100 ml @ 100 mls/hr 1X ONCE IV Last administered on 11/09/21at 21:30; Start 11/09/21 at 20:00; Stop 11/09/21 at 20:59; Status DC Nicardipine HCl 50 mg/Sodium Chloride 250 ml @ 25 mls/hr CONT PRN PRN IV HYPERTENSION Last administered on 11/10/21at 01:36; Start 11/09/21 at 20:00; Stop 11/10/21 at 06:48; Status DC Insulin Human Regular 100 unit/ Sodium Chloride 101 ml @ 0 mls/hr 1X ONCE IV Last administered on 11/10/21at 00:24; Start 11/09/21 at 20:15; Stop 11/09/21 at 20:16; Status DC Labetalol HCl (Normodyne Iv Push) 10 mg 1X ONCE IVP Last administered on 11/09/21at 20:40; Start 11/09/21 at 20:15; Stop 11/09/21 at 20:16; Status DC Labetalol HCl (Normodyne Iv Push) 20 mg STK-MED ONCE IVP ; Start 11/09/21 at 20:05; Stop 11/09/21 at 20:05; Status DC Potassium Chloride (Klor-Con) 40 meq 1X ONCE PO ; Start 11/09/21 at 20:30; Stop 11/09/21 at 20:31; Status DC Ondansetron HCl (Zofran) 4 mg PRN Q8HRS PRN IVP NAUSEA/VOMITING Last administered on 11/09/21at 23:33; Start 11/09/21 at 20:30; Stop 11/10/21 at 06:48; Status DC Labetalol HCl (Normodyne Iv Push) 10 mg 1X ONCE IVP Last administered on 11/09/21at 18:05; Start 11/09/21 at 20:30; Stop 11/09/21 at 20:31; Status DC Insulin Human Lispro (HumaLOG) 15 units 1X ONCE SQ ; Start 11/09/21 at 21:30; Stop 11/09/21 at 21:31; Status DC Sodium Chloride 1,000 ml @ 125 mls/hr Q8H IV ; Start 11/10/21 at 00:00; Stop 11/10/21 at 09:59; Status DC Dextrose/Sodium Chloride 1,000 ml @ 125 mls/hr Q8H IV ; Start 11/10/21 at 00:00; Stop 11/10/21 at 09:59; Status DC Insulin Human Regular 100 unit/ Sodium Chloride 101 ml @ 0 mls/hr CONT PRN PRN IV PER PROTOCOL; Start 11/10/21 at 00:00; Stop 11/10/21 at 09:19; Status DC Potassium Chloride/Water 100 ml @ 100 mls/hr PRN Q1HR PRN IV SEE COMMENTS Last administered on 11/10/21at 03:41; Start 11/10/21 at 00:00 Potassium Chloride/Water 100 ml @ 100 mls/hr PRN Q1HR PRN IV SEE COMMENTS; Start 11/10/21 at 00:00 Potassium Chloride/Water 100 ml @ 100 mls/hr PRN Q1HR PRN IV SEE COMMENTS Last administered on 11/10/21at 12:45; Start 11/10/21 at 00:00 Magnesium Sulfate 100 ml @ 25 mls/hr DAILY IV Last administered on 11/11/21at 09:49; Start 11/10/21 at 09:00; Stop 11/13/21 at 08:59 Sodium Chloride 1,000 ml @ 125 mls/hr Q8H IV Last administered on 11/10/21at 00:44; Start 11/10/21 at 00:45; Stop 11/10/21 at 10:07; Status DC Dextrose/Sodium Chloride 1,000 ml @ 125 mls/hr Q8H IV Last administered on 11/10/21at 03:41; Start 11/10/21 at 03:45; Stop 11/10/21 at 09:59; Status DC Nicardipine HCl (Cardene) 50 mg STK-MED ONCE IV ; Start 11/09/21 at 21:00; Stop 11/10/21 at 04:38; Status DC Sodium Chloride (Iv Sodium Chloride 0.9% 250ml) 250 ml STK-MED ONCE .ROUTE ; Start 11/09/21 at 21:00; Stop 11/10/21 at 04:38; Status DC Sodium Chloride (Iv Sodium Chloride 0.9% 100ml) 100 ml STK-MED ONCE .ROUTE ; Start 11/09/21 at 21:00; Stop 11/10/21 at 04:38; Status DC Labetalol HCl (Normodyne Iv Push) 10 mg PRN Q10MIN PRN IVP HYPERTENSION Last administered on 11/10/21at 13:43; Start 11/10/21 at 06:45 Nicardipine HCl 50 mg/Sodium Chloride 250 ml @ 25 mls/hr CONT PRN PRN IV HYPERTENSION Last administered on 11/11/21at 03:26; Start 11/10/21 at 06:45 Acetaminophen (Tylenol) 650 mg PRN Q6HRS PRN PO MILD PAIN / TEMP > 100.3'F; Start 11/10/21 at 06:45; Status Cancel Acetaminophen (Tylenol Supp) 650 mg PRN Q6HRS PRN [place] MILD PAIN / TEMP > 100.3'F; Start 11/10/21 at 06:45 Ondansetron HCl (Zofran) 4 mg PRN Q6HRS PRN IVP NAUSEA/VOMITING 1ST CHOICE Last administered on 11/10/21 20:27; Start 11/10/21 at 06:45 Fentanyl Citrate (Fentanyl 2ml Vial) 50 mcg PRN Q2HR PRN IVP PAIN Last administered on 11/10/21 11:07; Start 11/10/21 at 08:30 Iohexol (Omnipaque 300 Mg/ml) 75 ml 1X ONCE IV Last administered on 11/10/21 08:56; Start 11/10/21 at 08:30; Stop 11/10/21 at 08:31; Status DC Info (CONTRAST GIVEN -- Rx MONITORING) 1 each PRN DAILY PRN MC SEE COMMENTS; Start 11/10/21 at 08:45; Stop 11/12/21 at 08:44 Amlodipine Besylate (Norvasc) 10 mg DAILY PO Last administered on 11/11/21 09:49; Start 11/10/21 at 09:00 Atorvastatin Calcium (Lipitor) 40 mg QHS PO ; Start 11/10/21 at 21:00 Clonidine HCl (Catapres) 0.1 mg TID PO Last administered on 11/11/21 09:46; Start 11/10/21 at 09:00 Doxazosin Mesylate (Cardura) 4 mg DAILY PO Last administered on 11/11/21 09:45; Start 11/10/21 at 09:00 Amylase/Lipase/ Protease (Zenpep 10,000) 3 cap TIDWMEALS PO Last administered on 11/11/21 13:29; Start 11/10/21 at 09:00 Methocarbamol (Robaxin) 750 mg PRN TID PRN PO MUSCLE SPASMS Last administered on 11/11/21 09:44; Start 11/10/21 at 09:00 Ondansetron HCl (Zofran Odt) 4 mg TID PRN PO NAUSEA; Start 11/10/21 at 09:00 Oxycodone/ Acetaminophen (Percocet 7.5/ 325) 1 tab PRN Q6HRS PRN PO MODERATE TO SEVERE PAIN; Start 11/10/21 at 09:00 Sevelamer Carbonate (Renvela) 800 mg TIDWMEALS PO Last administered on 11/11/21 13:29; Start 11/10/21 at 09:30 Carvedilol (Coreg) 25 mg BIDWMEALS PO Last administered on 11/11/21 09:44; Start 11/10/21 at 09:30 Hydralazine HCl (Apresoline) 100 mg TID PO Last administered on 11/11/21 09:43; Start 11/10/21 at 09:30 Isosorbide Mononitrate (Imdur) 60 mg DAILY PO Last administered on 11/11/21 09:45; Start 11/10/21 at 09:30 Pantoprazole Sodium (Protonix) 40 mg DAILYAC PO ; Start 11/10/21 at 09:30; Stop 11/10/21 at 14:29; Status DC Trazodone HCl (Desyrel) 150 mg HS PO ; Start 11/10/21 at 21:00 Acetaminophen (Tylenol) 650 mg PRN Q6HRS PRN PO MILD PAIN / TEMP > 100.3'F; Start 11/10/21 at 09:00 Insulin Human Lispro (HumaLOG) 0-8 UNITS TIDBFRMEAL SQ Last administered on 11/11/21 12:35; Start 11/10/21 at 11:30 Baclofen (Lioresal) 5 mg TID PRN PO MUSCLE SPASMS; Start 11/10/21 at 09:30 Prochlorperazine Edisylate (Compazine) 10 mg PRN Q6HRS PRN IV NAUSEA/VOMITING, 2ND CHOICE Last administered on 11/10/21 13:12; Start 11/10/21 at 11:15 Vancomycin HCl (Vanco Per Pharmacy) 1 each PRN DAILY PRN MC SEE COMMENTS Last administered on 11/10/21at 15:50; Start 11/10/21 at 11:15 Cefepime HCl (Maxipime) 1 gm Q24H IVP Last administered on 11/11/21 13:29; Start 11/10/21 at 12:00 Vancomycin HCl 1.5 gm/Sodium Chloride 500 ml @ 250 mls/hr 1X ONCE IV Last administered on 11/10/21at 13:35; Start 11/10/21 at 13:00; Stop 11/10/21 at 14:59; Status DC Potassium Chloride/Water 100 ml @ 100 mls/hr Q1H IV Last administered on 11/10/21at 18:00; Start 11/10/21 at 13:00; Stop 11/10/21 at 18:59; Status DC Pantoprazole Sodium (PROTONIX VIAL for IV PUSH) 40 mg 1X ONCE IVP Last administered on 11/10/21at 13:19; Start 11/10/21 at 13:30; Stop 11/10/21 at 13:31; Status DC Hydralazine HCl (Apresoline Inj) 20 mg PRN Q4HRS PRN IVP ELEVATED BP, SEE COMMENTS Last administered on 11/10/21at 18:52; Start 11/10/21 at 14:30 Pantoprazole Sodium (PROTONIX VIAL for IV PUSH) 40 mg DAILYAC IVP ; Start 11/11/21 at 07:30; Stop 11/10/21 at 14:32; Status DC Pantoprazole Sodium (PROTONIX VIAL for IV PUSH) 40 mg BIDAC IVP Last administered on 11/10/21at 16:24; Start 11/10/21 at 16:30 Vancomycin HCl (Vancomycin Random Level) 1 each 1X ONCE MC ; Start 11/13/21 at 05:00; Stop 11/13/21 at 05:01 Sodium Chloride 1,000 ml @ 1,000 mls/hr Q1H PRN IV hypotension; Start 11/10/21 at 17:00; Stop 11/10/21 at 22:59; Status DC Albumin Human 200 ml @ 200 mls/hr 1X PRN PRN IV Hypotension; Start 11/10/21 at 17:00; Stop 11/10/21 at 22:59; Status DC Sodium Chloride 1,000 ml @ 400 mls/hr Q2H30M PRN IV PATENCY; Start 11/10/21 at 17:00; Stop 11/11/21 at 04:59; Status DC Info (PHARMACY MONITORING -- do not chart) 1 each PRN DAILY PRN MC SEE COMMENTS; Start 11/10/21 at 17:00; Stop 11/10/21 at 16:51; Status DC Info (PHARMACY MONITORING -- do not chart) 1 each PRN DAILY PRN MC SEE COMMENTS; Start 11/10/21 at 17:00 Insulin Glargine (Lantus Syringe) 6 unit DAILY10 SQ Last administered on 11/11/21at 12:28; Start 11/11/21 at 10:00 Heparin Sodium (Porcine) (Heparin Sodium) 5,000 unit Q8HRS SQ ; Start 11/11/21 at 14:00 Epoetin Jose (PROCRIT for DIALYSIS PTS) 10,000 unit 3X/WEEK ONCE SQ ; Start 11/13/21 at 09:00; Stop 11/13/21 at 09:01 Active Scripts Active Ondansetron Odt (Ondansetron) 4 Mg Tab.rapdis 1 Tab PO PRN Q6-8HRS PRN Isosorbide Mononitrate Er (Isosorbide Mononitrate) 30 Mg Tab.er.24h 1 Tab PO DAILY 30 Days Clonidine Hcl 0.1 Mg Tablet 0.1 Mg PO TID 30 Days Admelog (Insulin Lispro) 100 Unit/1 Ml Vial 0 Units SQ TIDBFRMEAL 30 Days Use sliding scale at home. Amlodipine Besylate 10 Mg Tablet 10 Mg PO DAILY 30 Days Carvedilol 25 Mg Tablet 25 Mg PO BIDWMEALS 30 Days Atorvastatin Calcium 40 Mg Tablet 40 Mg PO QHS 30 Days Lantus Solostar (Insulin Glargine,Hum.rec.anlog) 100 Unit/1 Ml Insuln.pen 12 Unit SQ DAILY Percocet 7.5-325 Mg Tablet (Oxycodone/Acetaminophen) 1 Each Tablet 1 Tab PO PRN Q6HRS PRN Methocarbamol 750 Mg Tablet 750 Mg PO PRN TID PRN 10 Days Baclofen 10 Mg Tablet 5 Mg PO TID PRN Renvela (Sevelamer Carbonate) 800 Mg Tablet 800 Mg PO TIDWMEALS 30 Days Reported Isosorbide Dinitrate 30 Mg Tablet 2 Tab PO DAILY 30 Days Trazodone Hcl 150 Mg Tablet 150 Mg PO HS Fish Oil 1,000 Mg Softgel ([place]-3 Fatty Acids/Fish Oil) 1 Each Capsule 1 Cap PO DAILY 30 Days Omeprazole 40 Mg Capsule.dr 1 Cap PO DAILY Zenpep Dr 10,000 Units Capsule (Lipase/Protease/Amylase) 1 Each Capsule. 3 Cap PO TIDWMEALS Doxazosin Mesylate 4 Mg Tablet 1 Tab PO DAILY Hydralazine Hcl 100 Mg Tablet 1 Tab PO TID Aspir 81 (Aspirin) 81 Mg Tablet.dr 1 Tab PO DAILY Vitals/I & O Vital Sign - Last 24 Hours 11/10/21 11/10/21 11/10/21 11/10/21 14:30 14:39 16:00 16:00 Temp 100.2 100.0 100.2 100.0 Pulse 100 92 101 Resp 18 18 B/P (MAP) 187/76 174/75 133/58 (83) Pulse Ox 93 98 O2 Delivery Nasal Cannula Nasal Cannula Nasal Cannula O2 Flow Rate 2.0 3.0 3.0 11/10/21 11/10/21 11/10/21 11/10/21 16:59 17:00 18:00 18:52 Temp 100.9 99.9 100.9 99.9 Pulse 92 103 108 116 Resp 20 B/P (MAP) 174/75 129/56 (80) 147/ 189/115 Pulse Ox 97 97 O2 Delivery Nasal Cannula Nasal Cannula O2 Flow Rate 3.0 3.0 11/10/21 11/10/21 11/10/21 11/10/21 19:00 19:00 20:00 20:00 Temp 98.9 98.9 Pulse 112 112 119 Resp 18 18 23 B/P (MAP) 157/61 (93) 157/61 153/66 Pulse Ox 95 96 97 O2 Delivery Nasal Cannula Nasal Cannula Nasal Cannula Nasal Cannula O2 Flow Rate 3.0 3.0 3.0 3.0 11/10/21 11/10/21 11/10/21 11/10/21 20:28 20:28 21:00 22:18 Pulse 124 124 116 98 Resp 12 17 B/P (MAP) 160/62 160/62 134/62 150/56 Pulse Ox 98 97 O2 Delivery Nasal Cannula Nasal Cannula O2 Flow Rate 3.0 3.0 11/10/21 11/10/21 11/11/21 11/11/21 23:00 23:59 00:00 01:00 Temp 100.0 100.0 Pulse 116 114 120 Resp 15 16 26 B/P (MAP) 177/71 166/69 171/62 Pulse Ox 97 92 98 O2 Delivery Nasal Cannula Nasal Cannula Nasal Cannula Nasal Cannula O2 Flow Rate 3.0 3.0 3.0 3.0 11/11/21 11/11/21 11/11/21 11/11/21 02:00 03:07 04:00 04:00 Temp 99.8 99.8 Pulse 96 105 88 Resp 12 17 12 B/P (MAP) 168/65 156/58 155/61 Pulse Ox 98 98 98 O2 Delivery Nasal Cannula Nasal Cannula Nasal Cannula Nasal Cannula O2 Flow Rate 3.0 3.0 3.0 3.0 11/11/21 11/11/21 11/11/21 11/11/21 05:00 06:05 08:00 08:34 Pulse 94 81 83 Resp 10 11 10 B/P (MAP) 162/58 165/62 201/91 Pulse Ox 97 99 O2 Delivery Nasal Cannula Nasal Cannula Nasal Cannula Nasal Cannula O2 Flow Rate 3.0 3.0 3.0 3.0 11/11/21 11/11/21 11/11/21 11/11/21 09:43 09:44 09:45 09:45 Pulse 90 87 83 84 B/P (MAP) 159/70 159/70 159/70 159/70 11/11/21 11/11/21 09:46 09:49 Pulse 84 84 B/P (MAP) 159/70 159/70 Intake and Output 11/10/21 11/10/21 11/11/21 15:00 23:00 07:00 Output Total 550 ml 350 ml 80 ml Balance -550 ml -350 ml -80 ml Justifications for Admission Other Justification JACQUELINE RUBALCAVA MD Nov 11, 2021 14:30
[2021-11-11] MEDS: HEPARIN for SUB-Q USE 5,000 UNIT/ML VIAL. SQ SCH ×2 (16:46→21:29)
--- NOTE | 2021-11-11 19:08 | RAD ---
MRI Brain without contrast dated 11/11/2021 7:03 PM: Comparison: CT dated 11/10/2021. Clinical Indication:Stroke. Acute aphasia. Technical factors: Routine multiplanar multisequence MR imaging of the brain was performed without the administration of gadolinium. Findings: Ventricles and sulci are mildly prominent for age. No midline shift or mass effect. Mild spotty hyper intense FLAIR signal abnormality within the deep/subcortical periventricular white matter. No hemorrh age or extra-axial collection. Posterior fossa and brainstem unremarkable. No evidence of restricted diffusion abnormality. The major intracranial flow-voids are present. Postc ontrast imaging was not performed. Mild mucosal thickening of the ethmoid and maxillary sinuses. The mastoid air cells are clear. No lamar arent calvarial abnormality. IMPRESSION: 1. No evidence of acute intracranial hemorrhage, mass or acute infarct. 2. Mild chronic small vessel ischemic changes and atrophy. 3. Mild sinus disease. Electronically signed by: Giles Mcgarry MD (11/11/2021 7:05 PM) DIANA
[2021-11-11] MEDS: ATORVASTATIN CALCIUM 40 MG TABLET. PO SCH (21:22)
[2021-11-11] MEDS: BACLOFEN 10 MG TABLET. PO PRN (21:22)
[2021-11-11] MEDS: traZODone 50 MG TABLET. PO SCH (21:43)
[2021-11-12] VITALS (7 sets, daily range): BP systolic 148–171; BP diastolic 65–75
[2021-11-12] MEDS ORDERED: VANCOMYCIN RANDOM LEVEL. MC ONE (05:00)
[2021-11-12] MEDS: HEPARIN for SUB-Q USE 5,000 UNIT/ML VIAL. SQ SCH ×3 (06:35→22:41)
[2021-11-12 07:24] LABS: BASO # 0.1 x10^3/uL (0.0-0.2); BASO % 1 % (0-3); EOS # 0.3 x10^3/uL (0.0-0.7); EOS % 2 % (0-3); HEMATOCRIT 28.8 % (39.0-53.0); HEMOGLOBIN 9.4 g/dL (13.0-17.5); LYMPH # 3.1 x10^3/uL (1.0-4.8); LYMPH % 24 % (24-48); MEAN CORPUSCULAR HEMOGLOBIN 27 pg (25-35); MEAN CORPUSCULAR HGB CONC 33 g/dL (31-37); MEAN CORPUSCULAR VOLUME 83 fL (79-100); MONO # 0.8 x10^3/uL (0.0-1.1); MONO % 7 % (0-9); NEUT # 8.4 x10^3/uL (1.8-7.7); NEUT % 67 % (31-73); PLATELET COUNT 261 x10^3/uL (140-400); RED BLOOD COUNT 3.45 x10^6/uL (4.30-5.70); RED CELL DISTRIBUTION WIDTH 16.4 % (11.5-14.5); WHITE BLOOD COUNT 12.7 x10^3/uL (4.0-11.0)
[2021-11-12 07:29] LABS: ALBUMIN 1.8 g/dL (3.4-5.0); ALBUMIN/GLOBULIN RATIO 0.5 (1.0-1.7); CALCIUM 7.9 mg/dL (8.5-10.1); CREATININE 5.5 mg/dL (0.7-1.3); GFR 13.1; MAGNESIUM 2.6 mg/dL (1.8-2.4); POTASSIUM 3.7 mmol/L (3.5-5.1); TOTAL BILIRUBIN 0.4 mg/dL (0.2-1.0); TOTAL PROTEIN 5.2 g/dL (6.4-8.2)
[2021-11-12] MEDS: INSULIN LISPRO 300 UNITS/3 ML VIAL. SQ SCH ×3 (07:30→16:30)
[2021-11-12] MEDS: PANTOPRAZOLE IV PUSH 40 MG VIAL. IVP SCH ×2 (08:00→16:34)
[2021-11-12] MEDS: DOXAZOSIN MESYLATE 4 MG TABLET. PO SCH (08:01)
[2021-11-12] MEDS: ISOSORBIDE MONONITRATE ER 30 MG TAB.ER.24H PO SCH (08:01)
[2021-11-12] MEDS: LIPASE/PROTEAS/AMYLAS 10/32/42 CAPSULE.DR. PO SCH ×3 (08:01→16:35)
[2021-11-12] MEDS: cloNIDine HCL 0.1 MG TABLET PO SCH ×3 (08:02→22:39)
[2021-11-12] MEDS: SEVELAMER CARBONATE 800 MG TABLET. PO SCH ×3 (08:02→16:34)
[2021-11-12] MEDS: CARVEDILOL 12.5 MG TABLET. PO SCH ×2 (08:03→16:35)
--- NOTE | 2021-11-12 08:57 | PDOC ---
DATE OF SERVICE: DOS: DATE: 11/12/21 TIME: 08:55 SUBJECTIVE ROS Follow-up for ESRD on hemodialysis Saturday Patient claims he is feeling better, has been moved out of the ICU but does have some presternal chest pain CVS: no Orthopnea, + CP RESP: no SOB, no HOLLEY GI: no Nausea, no Vomiting : no Dysuria, no Urgency OBJECTIVE Vital Signs Vital Signs Date Time Temp Pulse Resp B/P (MAP) Pulse Ox O2 Delivery O2 Flow Rate FiO2 11/12/21 08:04 62 148/65 11/12/21 07:00 98.9 16 95 Room Air 98.9 11/12/21 03:02 3.0 I & 0 Intake and Output 11/12/21 07:00 Intake Total 1000 ml Output Total 75 ml Balance 925 ml Intake Oral 1000 ml Output Urine Total 75 ml PHYSICAL EXAM Physical Exam GEN: Awake, Oriented x 3, much improved affect, in no distress EYES: Vision Unchanged, Conjunctiva Normal EN: No EN Drainage, Mucous Membranes moist NECK: no JVD, no JVP, Supple, no Thyromegaly CVS: S1S2, ? Murmur, No Gallop, No Rub,no Edema RESP: no Rales, no Rhonchi,no Acc. Muscle Use GI: BS + ve, NO Bruit, Non Tender, Non Distended : no CVA tenderness, no Suprapubic Tenderness DIAGNOSIS/ASSESSMENT Assessment & Plan ESRD: Current fluid and E-lyte status does not necessitate emergent need for dialysis. Will re-evaluate for dialysis in the am and continue on MWF schedule. ANEMIA; Aranap as ordered, Transfuse with next HD as needed HTN: Current BP meds as reviewed. Defer to cardiology to optimize from CAD standpoint Chest pain: Defer to cardiology. Patient's nurse has been informed BONE & MINERAL: Follow phosphorus levels abdominal binder regimen as needed based on oral intake Poorly controlled diabetes: Defer to primary team Hypoalbuminemia suspect due to poorly controlled diabetes. High-protein diet recommended for the patient COMMENT/RELEVANT DATA Meds Current Medications Medications (Trade) Dose Ordered Sig/Ravinder Start Time Stop Time Status Last Admin Dose Admin Acetaminophen (Tylenol Supp) 650 mg PRN Q6HRS PRN 11/10/21 06:45 Acetaminophen (Tylenol) 650 mg PRN Q6HRS PRN 11/10/21 09:00 Albumin Human 200 ml @ 200 mls/hr 1X PRN PRN 11/10/21 17:00 11/10/21 22:59 DC Alteplase, Recombinant 48.6 ml @ 48.6 mls/hr 1X ONCE 11/09/21 20:00 11/09/21 20:59 DC 11/09/21 20:21 48.6 MLS/HR Amlodipine Besylate (Norvasc) 10 mg DAILY 11/10/21 09:00 11/12/21 08:04 10 MG Amylase/Lipase/ Protease (Zenpep 10,000) 3 cap TIDWMEALS 11/10/21 09:00 11/12/21 08:01 3 CAP Atorvastatin Calcium (Lipitor) 40 mg QHS 11/10/21 21:00 11/11/21 21:22 40 MG Baclofen (Lioresal) 5 mg TID PRN 11/10/21 09:30 11/11/21 21:22 5 MG Carvedilol (Coreg) 25 mg BIDWMEALS 11/10/21 09:30 11/12/21 08:03 25 MG Cefepime HCl (Maxipime) 1 gm Q24H 11/10/21 12:00 11/11/21 13:29 1 GM Clonidine HCl (Catapres) 0.1 mg TID 11/10/21 09:00 11/12/21 08:02 0.1 MG Dextrose/Sodium Chloride 1,000 ml @ 125 mls/hr Q8H 11/10/21 03:45 11/10/21 09:59 DC 11/10/21 03:41 125 MLS/HR Doxazosin Mesylate (Cardura) 4 mg DAILY 11/10/21 09:00 11/12/21 08:01 4 MG Epoetin Jose (PROCRIT for DIALYSIS PTS) 10,000 unit 3X/WEEK ONCE 11/13/21 09:00 11/13/21 09:01 Fentanyl Citrate (Fentanyl 2ml Vial) 50 mcg PRN Q2HR PRN 11/10/21 08:30 11/10/21 11:07 50 MCG Heparin Sodium (Porcine) (Heparin Sodium) 5,000 unit Q8HRS 11/11/21 14:00 11/12/21 06:35 5,000 UNIT Hydralazine HCl (Apresoline Inj) 20 mg PRN Q4HRS PRN 11/10/21 14:30 11/10/21 18:52 20 MG Hydralazine HCl (Apresoline) 100 mg TID 11/10/21 09:30 11/12/21 08:02 100 MG Info (CONTRAST GIVEN -- Rx MONITORING) 1 each PRN DAILY PRN 11/10/21 08:45 11/12/21 08:44 DC Info (PHARMACY MONITORING -- do not chart) 1 each PRN DAILY PRN 11/10/21 17:00 Insulin Glargine (Lantus Syringe) 6 unit DAILY10 11/11/21 10:00 11/11/21 12:28 6 UNIT Insulin Human Lispro (HumaLOG) 0-8 UNITS TIDBFRMEAL 11/10/21 11:30 11/11/21 12:35 3 UNITS Insulin Human Regular 100 unit/ Sodium Chloride 101 ml @ 0 mls/hr CONT PRN PRN 11/10/21 00:00 11/10/21 09:19 DC Iohexol (Omnipaque 300 Mg/ml) 75 ml 1X ONCE 11/10/21 08:30 11/10/21 08:31 DC 11/10/21 08:56 75 ML Iohexol (Omnipaque 350 Mg/ml) 75 ml 1X ONCE 11/09/21 19:00 11/09/21 19:01 DC Isosorbide Mononitrate (Imdur) 60 mg DAILY 11/10/21 09:30 11/12/21 08:01 60 MG Labetalol HCl (Normodyne Iv Push) 10 mg PRN Q10MIN PRN 11/10/21 06:45 11/10/21 13:43 10 MG Magnesium Sulfate 100 ml @ 25 mls/hr DAILY 11/10/21 09:00 11/13/21 08:59 11/11/21 09:49 25 MLS/HR Methocarbamol (Robaxin) 750 mg PRN TID PRN 11/10/21 09:00 11/11/21 09:44 750 MG Nicardipine HCl (Cardene) 50 mg STK-MED ONCE 11/09/21 21:00 11/10/21 04:38 DC Nicardipine HCl 50 mg/Sodium Chloride 250 ml @ 25 mls/hr CONT PRN PRN 11/10/21 06:45 11/11/21 03:26 25 MLS/HR Ondansetron HCl (Zofran Odt) 4 mg TID PRN 11/10/21 09:00 Ondansetron HCl (Zofran) 4 mg PRN Q6HRS PRN 11/10/21 06:45 11/10/21 20:27 4 MG Oxycodone/ Acetaminophen (Percocet 7.5/ 325) 1 tab PRN Q6HRS PRN 11/10/21 09:00 Pantoprazole Sodium (PROTONIX VIAL for IV PUSH) 40 mg BIDAC 11/10/21 16:30 11/12/21 08:00 40 MG Pantoprazole Sodium (Protonix) 40 mg DAILYAC 11/10/21 09:30 11/10/21 14:29 DC Potassium Chloride/Water 100 ml @ 100 mls/hr Q1H 11/10/21 13:00 11/10/21 18:59 DC 11/10/21 18:00 100 MLS/HR Potassium Chloride (Klor-Con) 40 meq 1X ONCE 11/09/21 20:30 11/09/21 20:31 DC Prochlorperazine Edisylate (Compazine) 10 mg PRN Q6HRS PRN 11/10/21 11:15 11/10/21 13:12 10 MG Sevelamer Carbonate (Renvela) 800 mg TIDWMEALS 11/10/21 09:30 11/12/21 08:02 800 MG Sodium Chloride 1,000 ml @ 400 mls/hr Q2H30M PRN 11/10/21 17:00 11/11/21 04:59 DC Sodium Chloride (Iv Sodium Chloride 0.9% 100ml) 100 ml STK-MED ONCE 11/09/21 21:00 11/10/21 04:38 DC Sodium Chloride (Iv Sodium Chloride 0.9% 250ml) 250 ml STK-MED ONCE 11/09/21 21:00 11/10/21 04:38 DC Trazodone HCl (Desyrel) 150 mg HS 11/10/21 21:00 11/11/21 21:43 150 MG Vancomycin HCl (Vanco Per Pharmacy) 1 each PRN DAILY PRN 11/10/21 11:15 11/10/21 15:50 1 EACH Vancomycin HCl (Vancomycin Random Level) 1 each 1X ONCE 11/12/21 05:00 11/12/21 05:01 DC 11/12/21 05:00 1 EACH Vancomycin HCl 1.5 gm/Sodium Chloride 500 ml @ 250 mls/hr 1X ONCE 11/10/21 13:00 11/10/21 14:59 DC 11/10/21 13:35 250 MLS/HR Vancomycin HCl 750 mg/Sodium Chloride 250 ml @ 250 mls/hr 1X ONCE 11/12/21 10:00 11/12/21 10:59 Lab Laboratory Tests Test 11/11/21 12:33 11/11/21 17:22 11/11/21 20:45 11/12/21 06:15 Glucose (Fingerstick) 249 mg/dL (70-99) 95 mg/dL (70-99) 80 mg/dL (70-99) White Blood Count 12.7 x10^3/uL (4.0-11.0) Red Blood Count 3.45 x10^6/uL (4.30-5.70) Hemoglobin 9.4 g/dL (13.0-17.5) Hematocrit 28.8 % (39.0-53.0) Mean Corpuscular Volume 83 fL (79-100) Mean Corpuscular Hemoglobin 27 pg (25-35) Mean Corpuscular Hemoglobin Concent 33 g/dL (31-37) Red Cell Distribution Width 16.4 % (11.5-14.5) Platelet Count 261 x10^3/uL (140-400) Neutrophils (%) (Auto) 67 % (31-73) Lymphocytes (%) (Auto) 24 % (24-48) Monocytes (%) (Auto) 7 % (0-9) Eosinophils (%) (Auto) 2 % (0-3) Basophils (%) (Auto) 1 % (0-3) Neutrophils # (Auto) 8.4 x10^3/uL (1.8-7.7) Lymphocytes # (Auto) 3.1 x10^3/uL (1.0-4.8) Monocytes # (Auto) 0.8 x10^3/uL (0.0-1.1) Eosinophils # (Auto) 0.3 x10^3/uL (0.0-0.7) Basophils # (Auto) 0.1 x10^3/uL (0.0-0.2) Sodium Level 135 mmol/L (136-145) Potassium Level 3.7 mmol/L (3.5-5.1) Chloride Level 100 mmol/L (98-107) Carbon Dioxide Level 27 mmol/L (21-32) Anion Gap 8 (6-14) Blood Urea Nitrogen 19 mg/dL (8-26) Creatinine 5.5 mg/dL (0.7-1.3) Estimated GFR (Cockcroft-Gault) 13.1 BUN/Creatinine Ratio 3 (6-20) Glucose Level 126 mg/dL (70-99) Calcium Level 7.9 mg/dL (8.5-10.1) Magnesium Level 2.6 mg/dL (1.8-2.4) Total Bilirubin 0.4 mg/dL (0.2-1.0) Aspartate Amino Transf (AST/SGOT) 14 U/L (15-37) Alanine Aminotransferase (ALT/SGPT) 13 U/L (16-63) Alkaline Phosphatase 93 U/L (46-116) Total Protein 5.2 g/dL (6.4-8.2) Albumin 1.8 g/dL (3.4-5.0) Albumin/Globulin Ratio 0.5 (1.0-1.7) Random Vancomycin Level 12.9 mcg/mL Test 11/12/21 07:20 Glucose (Fingerstick) 134 mg/dL (70-99) Results All relevant outside records, renal labs, imaging studies, telemetry/EKG's were reviewed. Justicifation of Admission Dx: Justifications for Admission: Justification of Admission Dx: N/A FLOR BANUELOS MD Nov 12, 2021 08:57
[2021-11-12] MEDS: MAGNESIUM SULFATE 4GM 100 ML IV SCH (09:00)
--- NOTE | 2021-11-12 09:49 | EKG ---
[facility] [address] [place] [address] Test Date: 2021-11-12 Test Time: 09:28:04 Pat Name: ADAIR PINEDA Department: Room: [facility] Gender: M Event Representative: JARED : 1965 Requested By: TRINA ALDANA Order Number: [id number] Reading MD: Anish Spencer Measurements Intervals Goodell Rate: 77 P: 70 [place]: 180 QRS: 20 QRSD: 88 T: 1 QT: 402 QTc: 457 Interpretive Statements SINUS RHYTHM LOW LIMB LEAD VOLTAGE NON SPECIFIC ST-T WAVE CHANGES Electronically Signed On 11-15-2021 17:22:58 CDT by Anish Spencer
[2021-11-12] MEDS ORDERED: VANCOMYCIN 750 MG in IV NORMAL SALINE 250ML 250 ML IV ONE (10:00)
[2021-11-12] MEDS: INSULIN GLARGINE SYRINGE. SQ SCH (10:00)
--- NOTE | 2021-11-12 10:10 | NUR ---
Patient c/o chest pain, EKG obtained, cardiology physician paged for notification.
--- NOTE | 2021-11-12 10:37 | NUR ---
Second page placed to for notification of chest pain.
--- NOTE | 2021-11-12 10:52 | NUR ---
Received return call back from . No new orders received at this time, states he will be at bedside to evaluate patient today.
--- NOTE | 2021-11-12 11:49 | PDOC ---
Infectious Disease Note Subjective: Subjective Patient feels better today Complains of left chest wall pain from fall a week ago No trouble with speech Denies any neurologic weakness Vital Signs: Vital Signs Vital Signs Date Time Temp Pulse Resp B/P (MAP) Pulse Ox O2 Delivery O2 Flow Rate FiO2 11/12/21 10:34 99.5 68 16 161/68 (99) 96 Room Air 99.5 11/12/21 08:00 3.0 Physical Exam: PHYSICAL EXAM GENERAL: Alert oriented x3 male in no acute distress looks better HEENT: Both pupils are round and reacting. No conjunctival lesion. No oral lesion. NECK: Supple, no JVP, LUNGS: Clear. Chest wall costochondral pain on the left chest site HEART: S1, S2, regular. ABDOMEN: Soft, nontender, no organomegaly. EXTREMITIES: No edema, cyanosis. SKIN: No gen rash NEUROLOGIC: Alert oriented x3 male in no acute distress moves all 4 extremities. RT IJ in place Medications: Inpatient Meds: Medications reviewed. Labs: Lab Laboratory Tests Test 11/11/21 12:33 11/11/21 17:22 11/11/21 20:45 11/12/21 06:15 Glucose (Fingerstick) 249 mg/dL (70-99) 95 mg/dL (70-99) 80 mg/dL (70-99) White Blood Count 12.7 x10^3/uL (4.0-11.0) Red Blood Count 3.45 x10^6/uL (4.30-5.70) Hemoglobin 9.4 g/dL (13.0-17.5) Hematocrit 28.8 % (39.0-53.0) Mean Corpuscular Volume 83 fL (79-100) Mean Corpuscular Hemoglobin 27 pg (25-35) Mean Corpuscular Hemoglobin Concent 33 g/dL (31-37) Red Cell Distribution Width 16.4 % (11.5-14.5) Platelet Count 261 x10^3/uL (140-400) Neutrophils (%) (Auto) 67 % (31-73) Lymphocytes (%) (Auto) 24 % (24-48) Monocytes (%) (Auto) 7 % (0-9) Eosinophils (%) (Auto) 2 % (0-3) Basophils (%) (Auto) 1 % (0-3) Neutrophils # (Auto) 8.4 x10^3/uL (1.8-7.7) Lymphocytes # (Auto) 3.1 x10^3/uL (1.0-4.8) Monocytes # (Auto) 0.8 x10^3/uL (0.0-1.1) Eosinophils # (Auto) 0.3 x10^3/uL (0.0-0.7) Basophils # (Auto) 0.1 x10^3/uL (0.0-0.2) Sodium Level 135 mmol/L (136-145) Potassium Level 3.7 mmol/L (3.5-5.1) Chloride Level 100 mmol/L (98-107) Carbon Dioxide Level 27 mmol/L (21-32) Anion Gap 8 (6-14) Blood Urea Nitrogen 19 mg/dL (8-26) Creatinine 5.5 mg/dL (0.7-1.3) Estimated GFR (Cockcroft-Gault) 13.1 BUN/Creatinine Ratio 3 (6-20) Glucose Level 126 mg/dL (70-99) Calcium Level 7.9 mg/dL (8.5-10.1) Magnesium Level 2.6 mg/dL (1.8-2.4) Total Bilirubin 0.4 mg/dL (0.2-1.0) Aspartate Amino Transf (AST/SGOT) 14 U/L (15-37) Alanine Aminotransferase (ALT/SGPT) 13 U/L (16-63) Alkaline Phosphatase 93 U/L (46-116) Total Protein 5.2 g/dL (6.4-8.2) Albumin 1.8 g/dL (3.4-5.0) Albumin/Globulin Ratio 0.5 (1.0-1.7) Random Vancomycin Level 12.9 mcg/mL Test 11/12/21 07:20 11/12/21 11:34 Glucose (Fingerstick) 134 mg/dL (70-99) 305 mg/dL (70-99) Objective: Assessment: 1. Fever.Could be from aspiration,BC negative so far 2. Encephalopathy, Aphasia due to acute stroke. 3. Hypertensive crisis. 4. Diabetes. 5. End-stage renal disease, on hemodialysis. 6. Hypertensive urgency 7. Pancreatitis on KUB Plan: Plan of Care Cont vancomycin and cefepime renal dosing F/U Cultures Monitor labs Supportive care SACHI BANUELOS MD Nov 12, 2021 11:49
--- NOTE | 2021-11-12 11:52 | PDOC ---
PROGRESS NOTES Date of Service: DATE: 11/12/21 TIME: 11:48 Subjective Subjective chest wall pain from fall few days ago. Objective Objective Vital Signs Date Time Temp Pulse Resp B/P (MAP) Pulse Ox O2 Delivery O2 Flow Rate FiO2 11/12/21 10:34 99.5 68 16 161/68 (99) 96 Room Air 99.5 11/12/21 08:00 3.0 Intake and Output 11/12/21 07:00 Intake Total 1000 ml Output Total 75 ml Balance 925 ml Intake Oral 1000 ml Output Urine Total 75 ml Physical Exam Abdomen: Normal bowel sounds Heart: Regular rate Extremities: No cyanosis, No edema General: No acute distress HEENT: Atraumatic, Mucous membr. moist/pink Lungs: Other (Minimally decreased breath sounds) MUSCULOSKELETAL: Full range of motion without pain Neuro: Sensation intact, Other (unable to assess speech as he is currently nauseated, able to answer question with yes or no) Psych/Mental Status: Other (flat affect) Skin: No breakdown, No significant lesion COMMENT left chest wall tenderness present Diagnosis Problem List Problems Medical Problems: (1) Acute hypokalemia Status: Acute (2) Aphasia due to acute stroke Status: Acute (3) Hyperglycemia due to type 2 diabetes mellitus Status: Acute (4) Hypertensive urgency Status: Acute Assessment Assessment IMP;chest wall pain 1. Acute cerebrovascular accident with aphasia, status post TPA treatment. 2. Acute hypertensive crisis. 3. Diabetic ketoacidosis. 4. Fever, etiology not clear. 5. End-stage renal disease, on hemodialysis. 6. 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 7. Osteoarthritis, status post neck surgery and lumbar surgery and chronic pain. 8. Gastroesophageal reflux disease. 9. Coronary artery disease with history of stent placement. 10. Chronic hypoxic respiratory failure, on oxygen by nasal cannula 2 liters per minute. 11. Chronic obstructive pulmonary disease. 14. Mixed hyperlipidemia. 15. Chronic pancreatitis. 16. Anemia. 17. Physical deconditioning. 18. Cervical spinal stenosis and cervical radiculopathy with several neck surgeries. PLAN:place Lidoderm patch for pain control. BS good . speech normal 1. Acute CVA. The patient had TPA. Consulted Dr. Garner. Aphasia is better. . Allowing for this, no intracranial large vessel occlusion. 2. No stenosis of the cervical carotid or vertebral arteries, although not well evaluated at the skull base. 2. Diabetes mellitus with very high sugars. Treated for DKA. He is not hypoglycemic. Anion gap is getting worse, so he was treated with insulin, but he is stable and the blood sugars are stable and I will discontinue insulin drip and put him on sliding scale insulin. Restart low dose Lantus. HbA1C 10.2. 3. End-stage renal disease, on hemodialysis. Consult Dr. Garcia for Nephrology evaluation and management. 4. Fever, etiology not clear. Order urinalysis and culture. Chest x-ray is negative. Order blood cultures. Consult Dr. Aguilar for Infectious Disease evaluation and management. Started on empiric IV Vancomycin and Cefipime. U/a negative. 5. Consult PT, OT, speech therapy evaluation and management. 6. Hypertensive crisis. Continue Cardene drip. Consult cardiology. 7. Nausea,vomiting, hiccups. Hs GERD. BID IV Protonix. Consulted GI- . KUB ? minimal ileus. Better. Advance diet. Hypomagnesemia- replace MG. For details, please refer to the orders. Long-term as well as short-term prognosis of this patient is very poor due to his multiple medical problems. Plan Plan of Care Problems Medical Problems: (1) Acute hypokalemia Status: Acute (2) Aphasia due to acute stroke Status: Acute (3) Hyperglycemia due to type 2 diabetes mellitus Status: Acute (4) Hypertensive urgency Status: Acute Comment Review of Relevant I have reviewed the following items donell (where applicable) has been applied. Labs Laboratory Tests Test 11/11/21 12:33 11/11/21 17:22 11/11/21 20:45 11/12/21 06:15 Glucose (Fingerstick) 249 mg/dL (70-99) 95 mg/dL (70-99) 80 mg/dL (70-99) White Blood Count 12.7 x10^3/uL (4.0-11.0) Red Blood Count 3.45 x10^6/uL (4.30-5.70) Hemoglobin 9.4 g/dL (13.0-17.5) Hematocrit 28.8 % (39.0-53.0) Mean Corpuscular Volume 83 fL (79-100) Mean Corpuscular Hemoglobin 27 pg (25-35) Mean Corpuscular Hemoglobin Concent 33 g/dL (31-37) Red Cell Distribution Width 16.4 % (11.5-14.5) Platelet Count 261 x10^3/uL (140-400) Neutrophils (%) (Auto) 67 % (31-73) Lymphocytes (%) (Auto) 24 % (24-48) Monocytes (%) (Auto) 7 % (0-9) Eosinophils (%) (Auto) 2 % (0-3) Basophils (%) (Auto) 1 % (0-3) Neutrophils # (Auto) 8.4 x10^3/uL (1.8-7.7) Lymphocytes # (Auto) 3.1 x10^3/uL (1.0-4.8) Monocytes # (Auto) 0.8 x10^3/uL (0.0-1.1) Eosinophils # (Auto) 0.3 x10^3/uL (0.0-0.7) Basophils # (Auto) 0.1 x10^3/uL (0.0-0.2) Sodium Level 135 mmol/L (136-145) Potassium Level 3.7 mmol/L (3.5-5.1) Chloride Level 100 mmol/L (98-107) Carbon Dioxide Level 27 mmol/L (21-32) Anion Gap 8 (6-14) Blood Urea Nitrogen 19 mg/dL (8-26) Creatinine 5.5 mg/dL (0.7-1.3) Estimated GFR (Cockcroft-Gault) 13.1 BUN/Creatinine Ratio 3 (6-20) Glucose Level 126 mg/dL (70-99) Calcium Level 7.9 mg/dL (8.5-10.1) Magnesium Level 2.6 mg/dL (1.8-2.4) Total Bilirubin 0.4 mg/dL (0.2-1.0) Aspartate Amino Transf (AST/SGOT) 14 U/L (15-37) Alanine Aminotransferase (ALT/SGPT) 13 U/L (16-63) Alkaline Phosphatase 93 U/L (46-116) Total Protein 5.2 g/dL (6.4-8.2) Albumin 1.8 g/dL (3.4-5.0) Albumin/Globulin Ratio 0.5 (1.0-1.7) Random Vancomycin Level 12.9 mcg/mL Test 11/12/21 07:20 11/12/21 11:34 Glucose (Fingerstick) 134 mg/dL (70-99) 305 mg/dL (70-99) Microbiology 11/10/21 Blood Culture - Preliminary, Resulted NO GROWTH AFTER 1 DAY Medications Current Medications Epoetin Jose (PROCRIT for DIALYSIS PTS) 10,000 unit 3X/WEEK ONCE SQ ; Start 11/13/21 at 09:00; Stop 11/13/21 at 09:01 Heparin Sodium (Porcine) (Heparin Sodium) 5,000 unit Q8HRS SQ Last administered on 11/12/21at 06:35; Start 11/11/21 at 14:00 Vancomycin HCl (Vancomycin Random Level) 1 each 1X ONCE MC Last administered on 11/12/21at 05:00; Start 11/12/21 at 05:00; Stop 11/12/21 at 05:01; Status DC Vancomycin HCl 500 mg/Sodium Chloride 100 ml @ 100 mls/hr QMWF IV ; Start 10/21 12/10 at 16:00 Vancomycin HCl 750 mg/Sodium Chloride 250 ml @ 250 mls/hr 1X ONCE IV Last administered on 11/12/21at 11:14; Start 11/12/21 at 10:00; Stop 11/12/21 at 10:59; Status DC Vitals/I & O Vital Sign - Last 24 Hours 11/11/21 11/11/21 11/11/21 11/11/21 15:00 16:44 16:45 17:38 Pulse 61 64 64 70 Resp 10 B/P (MAP) 102/56 140/57 140/57 140/57 Pulse Ox 95 O2 Delivery Nasal Cannula O2 Flow Rate 2.0 11/11/21 11/11/21 11/11/21 11/11/21 19:59 20:00 21:22 21:22 Temp 97.8 97.8 Pulse 68 68 68 Resp 16 B/P (MAP) 145/65 (91) 145/65 145/65 Pulse Ox 98 O2 Delivery Nasal Cannula Nasal Cannula O2 Flow Rate 2.0 3.0 11/11/21 11/11/21 11/12/21 11/12/21 22:44 23:00 03:02 07:00 Temp 97.9 97.9 98.1 98.9 97.9 97.9 98.1 98.9 Pulse 57 57 62 74 Resp 18 18 16 16 B/P (MAP) 129/60 (83) 129/60 (83) 148/65 (92) 158/71 (100) Pulse Ox 99 99 98 95 O2 Delivery Nasal Cannula Nasal Cannula Nasal Cannula Room Air O2 Flow Rate 3.0 3.0 3.0 11/12/21 11/12/21 11/12/21 11/12/21 08:00 08:01 08:01 08:02 Pulse 62 62 62 B/P (MAP) 148/65 148/65 148/65 O2 Delivery Nasal Cannula O2 Flow Rate 3.0 11/12/21 11/12/21 11/12/21 11/12/21 08:02 08:03 08:04 10:34 Temp 99.5 99.5 Pulse 62 62 62 68 Resp 16 B/P (MAP) 148/65 148/65 148/65 161/68 (99) Pulse Ox 96 O2 Delivery Room Air Intake and Output 11/11/21 11/11/21 11/12/21 15:00 23:00 07:00 Intake Total 600 ml 400 ml 0 ml Output Total 10 ml 65 ml Balance 590 ml 335 ml 0 ml Justifications for Admission Other Justification INÉS WALTER MD Nov 12, 2021 11:52
[2021-11-12] MEDS: CEFEPIME HCL IV Push 1 GM VIAL. IVP SCH (12:14)
--- NOTE | 2021-11-12 14:20 | PDOC ---
PROGRESS NOTES Date of Service DATE: 11/12/21 TIME: 14:14 Subjective Subjective Patient seen and examined Objective Objective Vital Signs Date Time Temp Pulse Resp B/P (MAP) Pulse Ox O2 Delivery O2 Flow Rate FiO2 11/12/21 14:02 68 161/68 11/12/21 10:34 99.5 16 96 Room Air 99.5 11/12/21 08:00 3.0 Intake and Output 11/12/21 07:00 Intake Total 1000 ml Output Total 75 ml Balance 925 ml Intake Oral 1000 ml Output Urine Total 75 ml Physical Exam Abdomen: Normal bowel sounds Heart: Regular rate General: No acute distress Lungs: Other (Mildly decreased breath sounds) Assessment Assessment Problems Medical Problems: (1) Acute hypokalemia Status: Acute (2) Aphasia due to acute stroke Status: Acute (3) Hyperglycemia due to type 2 diabetes mellitus Status: Acute (4) Hypertensive urgency Status: Acute 1. Acute Stroke with aphasia: also with element of metabolic encephalopathy. S/P tPA on admission. Patient continues to improve. He is followed by the neurology service. 2. HTN urgency: Improved but still elevated. 3. Uncontrolled DM2: improved 4. Hyponatremia. Treated. 5. Hypokalemia. Treated. 6. ESRD and HD per nephrology 7. Fever with possible sepsis: ID following 8. CAD s/p PCI/stent to the LCx; [facility] 01/09 showed patent LCx stent and no lesions needing intervention. Follows with Dr. Jahaira FOSTER. Clinically stable. Mild localized chest discomfort today which is increased with palpation. Patient attributes it to a fall last week. 9. Chronic diastolic CHF: compensated 10. HLP 11. Possible gastric erosion: coffee ground stain to prior emesis. 12. Nausea and vomiting: antiemetic received. Resolved. Comment Review of Relevant I have reviewed the following items donell (where applicable) has been applied. Labs Laboratory Tests Test 11/10/21 16:31 11/10/21 18:20 11/11/21 05:05 11/11/21 08:53 Glucose (Fingerstick) 353 mg/dL (70-99) 216 mg/dL (70-99) Hepatitis B Surface Antigen Nonreactive (Nonreactive) Hepatitis B Surface Antibody Nonreactive White Blood Count 13.6 x10^3/uL (4.0-11.0) Red Blood Count 3.55 x10^6/uL (4.30-5.70) Hemoglobin 9.7 g/dL (13.0-17.5) Hematocrit 29.2 % (39.0-53.0) Mean Corpuscular Volume 82 fL (79-100) Mean Corpuscular Hemoglobin 27 pg (25-35) Mean Corpuscular Hemoglobin Concent 33 g/dL (31-37) Red Cell Distribution Width 15.9 % (11.5-14.5) Platelet Count 253 x10^3/uL (140-400) Neutrophils (%) (Auto) 81 % (31-73) Lymphocytes (%) (Auto) 13 % (24-48) Monocytes (%) (Auto) 5 % (0-9) Eosinophils (%) (Auto) 0 % (0-3) Basophils (%) (Auto) 1 % (0-3) Neutrophils # (Auto) 11.1 x10^3/uL (1.8-7.7) Lymphocytes # (Auto) 1.8 x10^3/uL (1.0-4.8) Monocytes # (Auto) 0.7 x10^3/uL (0.0-1.1) Eosinophils # (Auto) 0.0 x10^3/uL (0.0-0.7) Basophils # (Auto) 0.1 x10^3/uL (0.0-0.2) Sodium Level 137 mmol/L (136-145) Potassium Level 3.7 mmol/L (3.5-5.1) Chloride Level 101 mmol/L (98-107) Carbon Dioxide Level 30 mmol/L (21-32) Anion Gap 6 (6-14) Blood Urea Nitrogen 11 mg/dL (8-26) Creatinine 3.5 mg/dL (0.7-1.3) Estimated GFR (Cockcroft-Gault) 22.1 BUN/Creatinine Ratio 3 (6-20) Glucose Level 200 mg/dL (70-99) Calcium Level 8.0 mg/dL (8.5-10.1) Total Bilirubin 0.4 mg/dL (0.2-1.0) Aspartate Amino Transf (AST/SGOT) 17 U/L (15-37) Alanine Aminotransferase (ALT/SGPT) 10 U/L (16-63) Alkaline Phosphatase 110 U/L (46-116) Total Protein 5.4 g/dL (6.4-8.2) Albumin 2.0 g/dL (3.4-5.0) Albumin/Globulin Ratio 0.6 (1.0-1.7) Test 11/11/21 12:33 11/11/21 17:22 11/11/21 20:45 11/12/21 06:15 Glucose (Fingerstick) 249 mg/dL (70-99) 95 mg/dL (70-99) 80 mg/dL (70-99) White Blood Count 12.7 x10^3/uL (4.0-11.0) Red Blood Count 3.45 x10^6/uL (4.30-5.70) Hemoglobin 9.4 g/dL (13.0-17.5) Hematocrit 28.8 % (39.0-53.0) Mean Corpuscular Volume 83 fL (79-100) Mean Corpuscular Hemoglobin 27 pg (25-35) Mean Corpuscular Hemoglobin Concent 33 g/dL (31-37) Red Cell Distribution Width 16.4 % (11.5-14.5) Platelet Count 261 x10^3/uL (140-400) Neutrophils (%) (Auto) 67 % (31-73) Lymphocytes (%) (Auto) 24 % (24-48) Monocytes (%) (Auto) 7 % (0-9) Eosinophils (%) (Auto) 2 % (0-3) Basophils (%) (Auto) 1 % (0-3) Neutrophils # (Auto) 8.4 x10^3/uL (1.8-7.7) Lymphocytes # (Auto) 3.1 x10^3/uL (1.0-4.8) Monocytes # (Auto) 0.8 x10^3/uL (0.0-1.1) Eosinophils # (Auto) 0.3 x10^3/uL (0.0-0.7) Basophils # (Auto) 0.1 x10^3/uL (0.0-0.2) Sodium Level 135 mmol/L (136-145) Potassium Level 3.7 mmol/L (3.5-5.1) Chloride Level 100 mmol/L (98-107) Carbon Dioxide Level 27 mmol/L (21-32) Anion Gap 8 (6-14) Blood Urea Nitrogen 19 mg/dL (8-26) Creatinine 5.5 mg/dL (0.7-1.3) Estimated GFR (Cockcroft-Gault) 13.1 BUN/Creatinine Ratio 3 (6-20) Glucose Level 126 mg/dL (70-99) Calcium Level 7.9 mg/dL (8.5-10.1) Magnesium Level 2.6 mg/dL (1.8-2.4) Total Bilirubin 0.4 mg/dL (0.2-1.0) Aspartate Amino Transf (AST/SGOT) 14 U/L (15-37) Alanine Aminotransferase (ALT/SGPT) 13 U/L (16-63) Alkaline Phosphatase 93 U/L (46-116) Total Protein 5.2 g/dL (6.4-8.2) Albumin 1.8 g/dL (3.4-5.0) Albumin/Globulin Ratio 0.5 (1.0-1.7) Random Vancomycin Level 12.9 mcg/mL Test 11/12/21 07:20 11/12/21 11:34 Glucose (Fingerstick) 134 mg/dL (70-99) 305 mg/dL (70-99) Laboratory Tests Test 11/11/21 17:22 11/11/21 20:45 11/12/21 06:15 11/12/21 07:20 Glucose (Fingerstick) 95 mg/dL (70-99) 80 mg/dL (70-99) 134 mg/dL (70-99) White Blood Count 12.7 x10^3/uL (4.0-11.0) Red Blood Count 3.45 x10^6/uL (4.30-5.70) Hemoglobin 9.4 g/dL (13.0-17.5) Hematocrit 28.8 % (39.0-53.0) Mean Corpuscular Volume 83 fL (79-100) Mean Corpuscular Hemoglobin 27 pg (25-35) Mean Corpuscular Hemoglobin Concent 33 g/dL (31-37) Red Cell Distribution Width 16.4 % (11.5-14.5) Platelet Count 261 x10^3/uL (140-400) Neutrophils (%) (Auto) 67 % (31-73) Lymphocytes (%) (Auto) 24 % (24-48) Monocytes (%) (Auto) 7 % (0-9) Eosinophils (%) (Auto) 2 % (0-3) Basophils (%) (Auto) 1 % (0-3) Neutrophils # (Auto) 8.4 x10^3/uL (1.8-7.7) Lymphocytes # (Auto) 3.1 x10^3/uL (1.0-4.8) Monocytes # (Auto) 0.8 x10^3/uL (0.0-1.1) Eosinophils # (Auto) 0.3 x10^3/uL (0.0-0.7) Basophils # (Auto) 0.1 x10^3/uL (0.0-0.2) Sodium Level 135 mmol/L (136-145) Potassium Level 3.7 mmol/L (3.5-5.1) Chloride Level 100 mmol/L (98-107) Carbon Dioxide Level 27 mmol/L (21-32) Anion Gap 8 (6-14) Blood Urea Nitrogen 19 mg/dL (8-26) Creatinine 5.5 mg/dL (0.7-1.3) Estimated GFR (Cockcroft-Gault) 13.1 BUN/Creatinine Ratio 3 (6-20) Glucose Level 126 mg/dL (70-99) Calcium Level 7.9 mg/dL (8.5-10.1) Magnesium Level 2.6 mg/dL (1.8-2.4) Total Bilirubin 0.4 mg/dL (0.2-1.0) Aspartate Amino Transf (AST/SGOT) 14 U/L (15-37) Alanine Aminotransferase (ALT/SGPT) 13 U/L (16-63) Alkaline Phosphatase 93 U/L (46-116) Total Protein 5.2 g/dL (6.4-8.2) Albumin 1.8 g/dL (3.4-5.0) Albumin/Globulin Ratio 0.5 (1.0-1.7) Random Vancomycin Level 12.9 mcg/mL Test 11/12/21 11:34 Glucose (Fingerstick) 305 mg/dL (70-99) Microbiology 11/10/21 Blood Culture - Preliminary, Resulted NO GROWTH AFTER 2 DAYS Medications Current Medications Iohexol (Omnipaque 350 Mg/ml) 75 ml 1X ONCE IV ; Start 4/21/22 at 19:00; Stop 11/09/21 at 19:01; Status DC Info (CONTRAST GIVEN -- Rx MONITORING) 1 each PRN DAILY PRN MC SEE COMMENTS; Start 11/09/21 at 19:00; Stop 11/10/21 at 15:04; Status DC Sodium Chloride 250 ml @ 500 mls/hr 1X ONCE IV ; Start 11/09/21 at 19:15; Stop 11/09/21 at 19:44; Status DC Alteplase, Recombinant 5.4 ml @ 324 mls/hr 1X ONCE IV Last administered on 11/09/21at 20:20; Start 11/09/21 at 20:00; Stop 11/09/21 at 20:01; Status DC Alteplase, Recombinant 48.6 ml @ 48.6 mls/hr 1X ONCE IV Last administered on 11/09/21at 20:21; Start 11/09/21 at 20:00; Stop 11/09/21 at 20:59; Status DC Sodium Chloride 100 ml @ 100 mls/hr 1X ONCE IV Last administered on 11/09/21at 21:30; Start 11/09/21 at 20:00; Stop 11/09/21 at 20:59; Status DC Nicardipine HCl 50 mg/Sodium Chloride 250 ml @ 25 mls/hr CONT PRN PRN IV HYPERTENSION Last administered on 11/10/21at 01:36; Start 11/09/21 at 20:00; Stop 11/10/21 at 06:48; Status DC Insulin Human Regular 100 unit/ Sodium Chloride 101 ml @ 0 mls/hr 1X ONCE IV Last administered on 11/10/21at 00:24; Start 11/09/21 at 20:15; Stop 11/09/21 at 20:16; Status DC Labetalol HCl (Normodyne Iv Push) 10 mg 1X ONCE IVP Last administered on 11/09/21at 20:40; Start 11/09/21 at 20:15; Stop 11/09/21 at 20:16; Status DC Labetalol HCl (Normodyne Iv Push) 20 mg STK-MED ONCE IVP ; Start 11/09/21 at 20:05; Stop 11/09/21 at 20:05; Status DC Potassium Chloride (Klor-Con) 40 meq 1X ONCE PO ; Start 11/09/21 at 20:30; Stop 11/09/21 at 20:31; Status DC Ondansetron HCl (Zofran) 4 mg PRN Q8HRS PRN IVP NAUSEA/VOMITING Last ad ministered on 11/09/21at 23:33; Start 11/09/21 at 20:30; Stop 11/10/21 at 06:48; Status DC Labetalol HCl (Normodyne Iv Push) 10 mg 1X ONCE IVP Last administered on 11/09/21at 18:05; Start 11/09/21 at 20:30; Stop 11/09/21 at 20:31; Status DC Insulin Human Lispro (HumaLOG) 15 units 1X ONCE SQ ; Start 11/09/21 at 21:30; Stop 11/09/21 at 21:31; Status DC Sodium Chloride 1,000 ml @ 125 mls/hr Q8H IV ; Start 11/10/21 at 00:00; Stop 11/10/21 at 09:59; Status DC Dextrose/Sodium Chloride 1,000 ml @ 125 mls/hr Q8H IV ; Start 11/10/21 at 00:00; Stop 11/10/21 at 09:59; Status DC Insulin Human Regular 100 unit/ Sodium Chloride 101 ml @ 0 mls/hr CONT PRN PRN IV PER PROTOCOL; Start 11/10/21 at 00:00; Stop 11/10/21 at 09:19; Status DC Potassium Chloride/Water 100 ml @ 100 mls/hr PRN Q1HR PRN IV SEE COMMENTS Last administered on 11/10/21at 03:41; Start 11/10/21 at 00:00 Potassium Chloride/Water 100 ml @ 100 mls/hr PRN Q1HR PRN IV SEE COMMENTS; Start 11/10/21 at 00:00 Potassium Chloride/Water 100 ml @ 100 mls/hr PRN Q1HR PRN IV SEE COMMENTS Last administered on 11/10/21at 12:45; Start 11/10/21 at 00:00 Magnesium Sulfate 100 ml @ 25 mls/hr DAILY IV Last administered on 11/11/21at 09:49; Start 11/10/21 at 09:00; Stop 11/13/21 at 08:59 Sodium Chloride 1,000 ml @ 125 mls/hr Q8H IV Last administered on 11/10/21at 00:44; Start 11/10/21 at 00:45; Stop 11/10/21 at 10:07; Status DC Dextrose/Sodium Chloride 1,000 ml @ 125 mls/hr Q8H IV Last administered on 11/10/21at 03:41; Start 11/10/21 at 03:45; Stop 11/10/21 at 09:59; Status DC Nicardipine HCl (Cardene) 50 mg STK-MED ONCE IV ; Start 11/09/21 at 21:00; Stop 11/10/21 at 04:38; Status DC Sodium Chloride (Iv Sodium Chloride 0.9% 250ml) 250 ml STK-MED ONCE .ROUTE ; Start 11/09/21 at 21:00; Stop 11/10/21 at 04:38; Status DC Sodium Chloride (Iv Sodium Chloride 0.9% 100ml) 100 ml STK-MED ONCE .ROUTE ; Start 11/09/21 at 21:00; Stop 11/10/21 at 04:38; Status DC Labetalol HCl (Normodyne Iv Push) 10 mg PRN Q10MIN PRN IVP HYPERTENSION Last administered on 11/10/21at 13:43; Start 11/10/21 at 06:45 Nicardipine HCl 50 mg/Sodium Chloride 250 ml @ 25 mls/hr CONT PRN PRN IV HYPERTENSION Last administered on 11/11/21at 03:26; Start 11/10/21 at 06:45 Acetaminophen (Tylenol) 650 mg PRN Q6HRS PRN PO MILD PAIN / TEMP > 100.3'F; Start 11/10/21 at 06:45; Status Cancel Acetaminophen (Tylenol Supp) 650 mg PRN Q6HRS PRN VA MILD PAIN / TEMP > 100.3'F; Start 11/10/21 at 06:45 Ondansetron HCl (Zofran) 4 mg PRN Q6HRS PRN IVP NAUSEA/VOMITING 1ST CHOICE Last administered on 11/10/21at 20:27; Start 11/10/21 at 06:45 Fentanyl Citrate (Fentanyl 2ml Vial) 50 mcg PRN Q2HR PRN IVP PAIN Last administered on 11/10/21at 11:07; Start 11/10/21 at 08:30 Iohexol (Omnipaque 300 Mg/ml) 75 ml 1X ONCE IV Last administered on 11/10/21 08:56; Start 11/10/21 at 08:30; Stop 11/10/21 at 08:31; Status DC Info (CONTRAST GIVEN -- Rx MONITORING) 1 each PRN DAILY PRN MC SEE COMMENTS; Start 11/10/21 at 08:45; Stop 11/12/21 at 08:44; Status DC Amlodipine Besylate (Norvasc) 10 mg DAILY PO Last administered on 11/12/21 08 :04; Start 11/10/21 at 09:00 Atorvastatin Calcium (Lipitor) 40 mg QHS PO Last administered on 11/11/21 21:22; Start 11/10/21 at 21:00 Clonidine HCl (Catapres) 0.1 mg TID PO Last administered on 11/12/21 14:02; Start 11/10/21 at 09:00 Doxazosin Mesylate (Cardura) 4 mg DAILY PO Last administered on 11/12/21 08:01; Start 11/10/21 at 09:00 Amylase/Lipase/ Protease (Zenpep 10,000) 3 cap TIDWMEALS PO Last administered on 11/12/21 12:15; Start 11/10/21 at 09:00 Methocarbamol (Robaxin) 750 mg PRN TID PRN PO MUSCLE SPASMS Last administered on 11/11/21 09:44; Start 11/10/21 at 09:00 Ondansetron HCl (Zofran Odt) 4 mg TID PRN PO NAUSEA; Start 11/10/21 at 09:00 Oxycodone/ Acetaminophen (Percocet 7.5/ 325) 1 tab PRN Q6HRS PRN PO MODERATE TO SEVERE PAIN; Start 11/10/21 at 09:00 Sevelamer Carbonate (Renvela) 800 mg TIDWMEALS PO Last administered on 11/12/21 12:14; Start 11/10/21 at 09:30 Carvedilol (Coreg) 25 mg BIDWMEALS PO Last administered on 11/12/21 08:03; Start 11/10/21 at 09:30 Hydralazine HCl (Apresoline) 100 mg TID PO Last administered on 11/12/21 14:02; Start 11/10/21 at 09:30 Isosorbide Mononitrate (Imdur) 60 mg DAILY PO Last administered on 11/12/21at 08:01; Start 11/10/21 at 09:30 Pantoprazole Sodium (Protonix) 40 mg DAILYAC PO ; Start 11/10/21 at 09:30; Stop 11/10/21 at 14:29; Status DC Trazodone HCl (Desyrel) 150 mg HS PO Last administered on 11/11/21at 21:43; Start 11/10/21 at 21:00 Acetaminophen (Tylenol) 650 mg PRN Q6HRS PRN PO MILD PAIN / TEMP > 100.3'F; Start 11/10/21 at 09:00 Insulin Human Lispro (HumaLOG) 0-8 UNITS TIDBFRMEAL SQ Last administered on 11/12/21at 12:23; Start 11/10/21 at 11:30 Baclofen (Lioresal) 5 mg TID PRN PO MUSCLE SPASMS Last administered on 11/11/21at 21:22; Start 11/10/21 at 09:30 Prochlorperazine Edisylate (Compazine) 10 mg PRN Q6HRS PRN IV NAUSEA/VOMITING, 2ND CHOICE Last administered on 11/10/21 13:12; Start 11/10/21 at 11:15 Vancomycin HCl (Vanco Per Pharmacy) 1 each PRN DAILY PRN MC SEE COMMENTS Last administered on 11/10/21at 15:50; Start 11/10/21 at 11:15 Cefepime HCl (Maxipime) 1 gm Q24H IVP Last administered on 11/12/21at 12:14; Start 11/10/21 at 12:00 Vancomycin HCl 1.5 gm/Sodium Chloride 500 ml @ 250 mls/hr 1X ONCE IV Last administered on 11/10/21at 13:35; Start 11/10/21 at 13:00; Stop 11/10/21 at 14:59 ; Status DC Potassium Chloride/Water 100 ml @ 100 mls/hr Q1H IV Last administered on 11/10/21at 18:00; Start 11/10/21 at 13:00; Stop 11/10/21 at 18:59; Status DC Pantoprazole Sodium (PROTONIX VIAL for IV PUSH) 40 mg 1X ONCE IVP Last administered on 11/10/21at 13:19; Start 11/10/21 at 13:30; Stop 11/10/21 at 13:31; Status DC Hydralazine HCl (Apresoline Inj) 20 mg PRN Q4HRS PRN IVP ELEVATED BP, SEE COMMENTS Last administered on 11/10/21at 18:52; Start 11/10/21 at 14:30 Pantoprazole Sodium (PROTONIX VIAL for IV PUSH) 40 mg DAILYAC IVP ; Start 11/11/21 at 07:30; Stop 11/10/21 at 14:32; Status DC Pantoprazole Sodium (PROTONIX VIAL for IV PUSH) 40 mg BIDAC IVP Last administered on 11/12/21at 08:00; Start 11/10/21 at 16:30 Vancomycin HCl (Vancomycin Random Level) 1 each 1X ONCE MC Last administered on 11/12/21at 05:00; Start 11/12/21 at 05:00; Stop 11/12/21 at 05:01; Status DC Sodium Chloride 1,000 ml @ 1,000 mls/hr Q1H PRN IV hypotension; Start 11/10/21 at 17:00; Stop 11/10/21 at 22:59; Status DC Albumin Human 200 ml @ 200 mls/hr 1X PRN PRN IV Hypotension; Start 11/10/21 at 17:00; Stop 11/10/21 at 22:59; Status DC Sodium Chloride 1,000 ml @ 400 mls/hr Q2H30M PRN IV PATENCY; Start 11/10/21 at 17:00; Stop 11/11/21 at 04:59; Status DC Info (PHARMACY MONITORING -- do not chart) 1 each PRN DAILY PRN MC SEE COMMENTS; Start 11/10/21 at 17:00; Stop 11/10/21 at 16:51; Status DC Info (PHARMACY MONITORING -- do not chart) 1 each PRN DAILY PRN MC SEE COMMENTS; Start 11/10/21 at 17:00 Insulin Glargine (Lantus Syringe) 6 unit DAILY10 SQ Last administered on 11/12/21at 10:00; Start 11/11/21 at 10:00 Heparin Sodium (Porcine) (Heparin Sodium) 5,000 unit Q8HRS SQ Last administered on 11/12/21at 14:08; Start 11/11/21 at 14:00 Epoetin Jose (PROCRIT for DIALYSIS PTS) 10,000 unit 3X/WEEK ONCE SQ ; Start 11/13/21 at 09:00; Stop 11/13/21 at 09:01 Vancomycin HCl 750 mg/Sodium Chloride 250 ml @ 250 mls/hr 1X ONCE IV Last administered on 11/12/21at 11:14; Start 11/12/21 at 10:00; Stop 11/12/21 at 10:59; Status DC Vancomycin HCl 500 mg/Sodium Chloride 100 ml @ 100 mls/hr QMWF IV ; Start 11/13/21 at 16:00 Active Scripts Active Ondansetron Odt (Ondansetron) 4 Mg Tab.rapdis 1 Tab PO PRN Q6-8HRS PRN Isosorbide Mononitrate Er (Isosorbide Mononitrate) 30 Mg Tab.er.24h 1 Tab PO DAILY 30 Days Clonidine Hcl 0.1 Mg Tablet 0.1 Mg PO TID 30 Days Admelog (Insulin Lispro) 100 Unit/1 Ml Vial 0 Units SQ TIDBFRMEAL 30 Days Use sliding scale at home. Amlodipine Besylate 10 Mg Tablet 10 Mg PO DAILY 30 Days Carvedilol 25 Mg Tablet 25 Mg PO BIDWMEALS 30 Days Atorvastatin Calcium 40 Mg Tablet 40 Mg PO QHS 30 Days Lantus Solostar (Insulin Glargine,Hum.rec.anlog) 100 Unit/1 Ml Insuln.pen 12 Unit SQ DAILY Percocet 7.5-325 Mg Tablet (Oxycodone/Acetaminophen) 1 Each Tablet 1 Tab PO PRN Q6HRS PRN Methocarbamol 750 Mg Tablet 750 Mg PO PRN TID PRN 10 Days Baclofen 10 Mg Tablet 5 Mg PO TID PRN Renvela (Sevelamer Carbonate) 800 Mg Tablet 800 Mg PO TIDWMEALS 30 Days Reported Isosorbide Dinitrate 30 Mg Tablet 2 Tab PO DAILY 30 Days Trazodone Hcl 150 Mg Tablet 150 Mg PO HS Fish Oil 1,000 Mg Softgel ([place]u-3 Fatty Acids/Fish Oil) 1 Each Capsule 1 Cap PO DAILY 30 Days Omeprazole 40 Mg Capsule. 1 Cap PO DAILY Zenpep 10,000 Units Capsule (Lipase/Protease/Amylase) 1 Each Capsule. 3 Cap PO TIDWMEALS Doxazosin Mesylate 4 Mg Tablet 1 Tab PO DAILY Hydralazine Hcl 100 Mg Tablet 1 Tab PO TID Aspir 81 (Aspirin) 81 Mg Tablet. 1 Tab PO DAILY Vitals/I & O Vital Sign - Last 24 Hours 11/11/21 11/11/21 11/11/21 11/11/21 15:00 16:44 16:45 17:38 Pulse 61 64 64 70 Resp 10 B/P (MAP) 102/56 140/57 140/57 140/57 Pulse Ox 95 O2 Delivery Nasal Cannula O2 Flow Rate 2.0 11/11/21 11/11/21 11/11/21 11/11/21 19:59 20:00 21:22 21:22 Temp 97.8 97.8 Pulse 68 68 68 Resp 16 B/P (MAP) 145/65 (91) 145/65 145/65 Pulse Ox 98 O2 Delivery Nasal Cannula Nasal Cannula O2 Flow Rate 2.0 3.0 11/11/21 11/11/21 11/12/21 11/12/21 22:44 23:00 03:02 07:00 Temp 97.9 97.9 98.1 98.9 97.9 97.9 98.1 98.9 Pulse 57 57 62 74 Resp 18 18 16 16 B/P (MAP) 129/60 (83) 129/60 (83) 148/65 (92) 158/71 (100) Pulse Ox 99 99 98 95 O2 Delivery Nasal Cannula Nasal Cannula Nasal Cannula Room Air O2 Flow Rate 3.0 3.0 3.0 11/12/21 11/12/21 11/12/21 11/12/21 08:00 08:01 08:01 08:02 Pulse 62 62 62 B/P (MAP) 148/65 148/65 148/65 O2 Delivery Nasal Cannula O2 Flow Rate 3.0 11/12/21 11/12/21 11/12/21 11/12/21 08:02 08:03 08:04 10:34 Temp 99.5 99.5 Pulse 62 62 62 68 Resp 16 B/P (MAP) 148/65 148/65 148/65 161/68 (99) Pulse Ox 96 O2 Delivery Room Air 11/12/21 11/12/21 14:02 14:02 Pulse 68 68 B/P (MAP) 161/68 161/68 Intake and Output 11/11/21 11/11/21 11/12/21 15:00 23:00 07:00 Intake Total 600 ml 400 ml 0 ml Output Total 10 ml 65 ml Balance 590 ml 335 ml 0 ml Justifications for Admission Other Justification JAQCUELINE RUBALCAVA MD Nov 12, 2021 14:20
[2021-11-12] MEDS: VANCOMYCIN PER PHARMACY MC PRN (15:53)
--- NOTE | 2021-11-12 15:54 | NUR ---
Pharmacy Vancomycin Dosing Note S: Consulted to monitor and dose vancomycin started 11/10/21. O: ADAIR PINEDA is a 56 year old M with empiric coverage for fever, AMS, elevated WBC. ID seeing. Other Antibiotics: CEFEPIME 1G IV Q24HRS LABS: Last BUN: 19 Last Creatinine: 5.5 Creatinine Clearance: ESRD on HD MWF Last WBC: 12.7 Tmax (past 24 hours): 100.2 Microbiology: BLOOD CX NGTD I/O: 1000/75 Drug Levels: Last Random level: 12.9 mcg/ml on 11/12/21 at 0600 Last dose given 11/10/21 at 1335 Vancomycin Dosing: Dosing Weight: Actual Target Trough: 10-20 A: Patient received vancomycin 1500 mg x 1 dose on 11/10. A random level today of 12.9 mcg/ml is below goal range. He is to have HD tomorrow. Give a one time dose today, then schedule doses to be given after HD sessions. P: 1. Start Vancomycin 750 mg IV x 1 dose today, then 500 mg IV qMWF after HD session 2. Follow up level PRN 3. Pharmacy will continue to monitor, follow and adjust therapy as needed. MARIPOSA SMITH [facility], 11/12/21 [id number]
[2021-11-12] MEDS: oxyCODONE/APAP 7.5/325 1 TAB TABLET PO PRN (16:35)
--- NOTE | 2021-11-12 17:32 | PDOC ---
PROGRESS NOTES Date of Service DATE: 11/12/21 TIME: 17:28 Assessment Problems Medical Problems: (1) Acute hypokalemia Status: Acute (2) Aphasia due to acute stroke-status post intravenous alteplase. MRI at 24 hours did not reveal evidence for stroke. CT arteriogram did not reveal any hemodynamically significant stenosis. Echocardiogram result is pending. He reports that he was on aspirin at home which he took daily. He had an event despite aspirin. He is no longer aphasic. Neurologic symptoms resolved. Status: Acute (3) Hyperglycemia due to type 2 diabetes mellitus-diabetes is uncontrolled. Hemoglobin A1c was elevated to 10.2. Status: Acute (4) Hypertensive urgency Status: Acute Plan I will initiate aspirin and Plavix. After a month the aspirin can be discontinued and Plavix continued monotherapy. He should continue with atorvastatin which is doing a very good job with his lipids. He should continue heart healthy diet. He needs to better monitor his blood pressures and gain control. He needs to work on tighter control over the diabetes. Subjective I feel okay. I have not had new symptoms. I have some chest pain but they gave me some pain medicine to help. Objective Vital Signs Date Time Temp Pulse Resp B/P (MAP) Pulse Ox O2 Delivery O2 Flow Rate FiO2 11/12/21 16:35 77 171/75 11/12/21 16:35 18 Room Air 11/12/21 15:00 98.1 97 98.1 11/12/21 08:00 3.0 Intake and Output 11/12/21 07:00 Intake Total 1000 ml Output Total 75 ml Balance 925 ml Intake Oral 1000 ml Output Urine Total 75 ml PHYSICAL EXAM He was alert, awake and cooperative. Speech was fluent and clear. He had a good fund of recent and remote knowledge. Attention and concentration was intact. He appeared well groomed and well nourished. He had just finished his meal without any coughing or choking. The eyes were conjugate and face symmetric. Movements were symmetric and well coordinated. Review of Relevant I have reviewed the following items donell (where applicable) has been applied. Labs Laboratory Tests Test 11/10/21 18:20 11/11/21 05:05 11/11/21 08:53 11/11/21 12:33 Hepatitis B Surface Antigen Nonreactive (Nonreactive) Hepatitis B Surface Antibody Nonreactive White Blood Count 13.6 x10^3/uL (4.0-11.0) Red Blood Count 3.55 x10^6/uL (4.30-5.70) Hemoglobin 9.7 g/dL (13.0-17.5) Hematocrit 29.2 % (39.0-53.0) Mean Corpuscular Volume 82 fL (79-100) Mean Corpuscular Hemoglobin 27 pg (25-35) Mean Corpuscular Hemoglobin Concent 33 g/dL (31-37) Red Cell Distribution Width 15.9 % (11.5-14.5) Platelet Count 253 x10^3/uL (140-400) Neutrophils (%) (Auto) 81 % (31-73) Lymphocytes (%) (Auto) 13 % (24-48) Monocytes (%) (Auto) 5 % (0-9) Eosinophils (%) (Auto) 0 % (0-3) Basophils (%) (Auto) 1 % (0-3) Neutrophils # (Auto) 11.1 x10^3/uL (1.8-7.7) Lymphocytes # (Auto) 1.8 x10^3/uL (1.0-4.8) Monocytes # (Auto) 0.7 x10^3/uL (0.0-1.1) Eosinophils # (Auto) 0.0 x10^3/uL (0.0-0.7) Basophils # (Auto) 0.1 x10^3/uL (0.0-0.2) Sodium Level 137 mmol/L (136-145) Potassium Level 3.7 mmol/L (3.5-5.1) Chloride Level 101 mmol/L (98-107) Carbon Dioxide Level 30 mmol/L (21-32) Anion Gap 6 (6-14) Blood Urea Nitrogen 11 mg/dL (8-26) Creatinine 3.5 mg/dL (0.7-1.3) Estimated GFR (Cockcroft-Gault) 22.1 BUN/Creatinine Ratio 3 (6-20) Glucose Level 200 mg/dL (70-99) Calcium Level 8.0 mg/dL (8.5-10.1) Total Bilirubin 0.4 mg/dL (0.2-1.0) Aspartate Amino Transf (AST/SGOT) 17 U/L (15-37) Alanine Aminotransferase (ALT/SGPT) 10 U/L (16-63) Alkaline Phosphatase 110 U/L (46-116) Total Protein 5.4 g/dL (6.4-8.2) Albumin 2.0 g/dL (3.4-5.0) Albumin/Globulin Ratio 0.6 (1.0-1.7) Glucose (Fingerstick) 216 mg/dL (70-99) 249 mg/dL (70-99) Test 11/11/21 17:22 11/11/21 20:45 11/12/21 06:15 11/12/21 07:20 Glucose (Fingerstick) 95 mg/dL (70-99) 80 mg/dL (70-99) 134 mg/dL (70-99) White Blood Count 12.7 x10^3/uL (4.0-11.0) Red Blood Count 3.45 x10^6/uL (4.30-5.70) Hemoglobin 9.4 g/dL (13.0-17.5) Hematocrit 28.8 % (39.0-53.0) Mean Corpuscular Volume 83 fL (79-100) Mean Corpuscular Hemoglobin 27 pg (25-35) Mean Corpuscular Hemoglobin Concent 33 g/dL (31-37) Red Cell Distribution Width 16.4 % (11.5-14.5) Platelet Count 261 x10^3/uL (140-400) Neutrophils (%) (Auto) 67 % (31-73) Lymphocytes (%) (Auto) 24 % (24-48) Monocytes (%) (Auto) 7 % (0-9) Eosinophils (%) (Auto) 2 % (0-3) Basophils (%) (Auto) 1 % (0-3) Neutrophils # (Auto) 8.4 x10^3/uL (1.8-7.7) Lymphocytes # (Auto) 3.1 x10^3/uL (1.0-4.8) Monocytes # (Auto) 0.8 x10^3/uL (0.0-1.1) Eosinophils # (Auto) 0.3 x10^3/uL (0.0-0.7) Basophils # (Auto) 0.1 x10^3/uL (0.0-0.2) Sodium Level 135 mmol/L (136-145) Potassium Level 3.7 mmol/L (3.5-5.1) Chloride Level 100 mmol/L (98-107) Carbon Dioxide Level 27 mmol/L (21-32) Anion Gap 8 (6-14) Blood Urea Nitrogen 19 mg/dL (8-26) Creatinine 5.5 mg/dL (0.7-1.3) Estimated GFR (Cockcroft-Gault) 13.1 BUN/Creatinine Ratio 3 (6-20) Glucose Level 126 mg/dL (70-99) Calcium Level 7.9 mg/dL (8.5-10.1) Magnesium Level 2.6 mg/dL (1.8-2.4) Total Bilirubin 0.4 mg/dL (0.2-1.0) Aspartate Amino Transf (AST/SGOT) 14 U/L (15-37) Alanine Aminotransferase (ALT/SGPT) 13 U/L (16-63) Alkaline Phosphatase 93 U/L (46-116) Total Protein 5.2 g/dL (6.4-8.2) Albumin 1.8 g/dL (3.4-5.0) Albumin/Globulin Ratio 0.5 (1.0-1.7) Random Vancomycin Level 12.9 mcg/mL Test 11/12/21 11:34 11/12/21 16:21 Glucose (Fingerstick) 305 mg/dL (70-99) 104 mg/dL (70-99) Laboratory Tests Test 11/11/21 20:45 11/12/21 06:15 11/12/21 07:20 11/12/21 11:34 Glucose (Fingerstick) 80 mg/dL (70-99) 134 mg/dL (70-99) 305 mg/dL (70-99) White Blood Count 12.7 x10^3/uL (4.0-11.0) Red Blood Count 3.45 x10^6/uL (4.30-5.70) Hemoglobin 9.4 g/dL (13.0-17.5) Hematocrit 28.8 % (39.0-53.0) Mean Corpuscular Volume 83 fL (79-100) Mean Corpuscular Hemoglobin 27 pg (25-35) Mean Corpuscular Hemoglobin Concent 33 g/dL (31-37) Red Cell Distribution Width 16.4 % (11.5-14.5) Platelet Count 261 x10^3/uL (140-400) Neutrophils (%) (Auto) 67 % (31-73) Lymphocytes (%) (Auto) 24 % (24-48) Monocytes (%) (Auto) 7 % (0-9) Eosinophils (%) (Auto) 2 % (0-3) Basophils (%) (Auto) 1 % (0-3) Neutrophils # (Auto) 8.4 x10^3/uL (1.8-7.7) Lymphocytes # (Auto) 3.1 x10^3/uL (1.0-4.8) Monocytes # (Auto) 0.8 x10^3/uL (0.0-1.1) Eosinophils # (Auto) 0.3 x10^3/uL (0.0-0.7) Basophils # (Auto) 0.1 x10^3/uL (0.0-0.2) Sodium Level 135 mmol/L (136-145) Potassium Level 3.7 mmol/L (3.5-5.1) Chloride Level 100 mmol/L (98-107) Carbon Dioxide Level 27 mmol/L (21-32) Anion Gap 8 (6-14) Blood Urea Nitrogen 19 mg/dL (8-26) Creatinine 5.5 mg/dL (0.7-1.3) Estimated GFR (Cockcroft-Gault) 13.1 BUN/Creatinine Ratio 3 (6-20) Glucose Level 126 mg/dL (70-99) Calcium Level 7.9 mg/dL (8.5-10.1) Magnesium Level 2.6 mg/dL (1.8-2.4) Total Bilirubin 0.4 mg/dL (0.2-1.0) Aspartate Amino Transf (AST/SGOT) 14 U/L (15-37) Alanine Aminotransferase (ALT/SGPT) 13 U/L (16-63) Alkaline Phosphatase 93 U/L (46-116) Total Protein 5.2 g/dL (6.4-8.2) Albumin 1.8 g/dL (3.4-5.0) Albumin/Globulin Ratio 0.5 (1.0-1.7) Random Vancomycin Level 12.9 mcg/mL Test 11/12/21 16:21 Glucose (Fingerstick) 104 mg/dL (70-99) Microbiology 11/10/21 Blood Culture - Preliminary, Resulted NO GROWTH AFTER 2 DAYS Medications Current Medications Iohexol (Omnipaque 350 Mg/ml) 75 ml 1X ONCE IV ; Start 11/09/21 at 19:00; Stop 11/09/21 at 19:01; Status DC Info (CONTRAST GIVEN -- Rx MONITORING) 1 each PRN DAILY PRN MC SEE COMMENTS; Start 11/09/21 at 19:00; Stop 11/10/21 at 15:04; Status DC Sodium Chloride 250 ml @ 500 mls/hr 1X ONCE IV ; Start 11/09/21 at 19:15; Stop 11/09/21 at 19:44; Status DC Alteplase, Recombinant 5.4 ml @ 324 mls/hr 1X ONCE IV Last administered on 11/09/21at 20:20; Start 11/09/21 at 20:00; Stop 11/09/21 at 20:01; Status DC Alteplase, Recombinant 48.6 ml @ 48.6 mls/hr 1X ONCE IV Last administered on 11/09/21at 20:21; Start 11/09/21 at 20:00; Stop 11/09/21 at 20:59; Status DC Sodium Chloride 100 ml @ 100 mls/hr 1X ONCE IV Last administered on 11/09/21at 21:30; Start 11/09/21 at 20:00; Stop 11/09/21 at 20:59; Status DC Nicardipine HCl 50 mg/Sodium Chloride 250 ml @ 25 mls/hr CONT PRN PRN IV HYPERTENSION Last administered on 11/10/21at 01:36; Start 11/09/21 at 20:00; Stop 11/10/21 at 06:48; Status DC Insulin Human Regular 100 unit/ Sodium Chloride 101 ml @ 0 mls/hr 1X ONCE IV Last administered on 11/10/21at 00:24; Start 11/09/21 at 20:15; Stop 11/09/21 at 20:16; Status DC Labetalol HCl (Normodyne Iv Push) 10 mg 1X ONCE IVP Last administered on 11/09/21at 20:40; Start 11/09/21 at 20:15; Stop 11/09/21 at 20:16; Status DC Labetalol HCl (Normodyne Iv Push) 20 mg STK-MED ONCE IVP ; Start 11/09/21 at 20:05; Stop 11/09/21 at 20:05; Status DC Potassium Chloride (Klor-Con) 40 meq 1X ONCE PO ; Start 11/09/21 at 20:30; Stop 11/09/21 at 20:31; Status DC Ondansetron HCl (Zofran) 4 mg PRN Q8HRS PRN IVP NAUSEA/VOMITING Last administered on 11/09/21at 23:33; Start 11/09/21 at 20:30; Stop 11/10/21 at 06:48; Status DC Labetalol HCl (Normodyne Iv Push) 10 mg 1X ONCE IVP Last administered on 11/09/21at 18:05; Start 11/09/21 at 20:30; Stop 11/09/21 at 20:31; Status DC Insulin Human Lispro (HumaLOG) 15 units 1X ONCE SQ ; Start 11/09/21 at 21:30; Stop 11/09/21 at 21:31; Status DC Sodium Chloride 1,000 ml @ 125 mls/hr Q8H IV ; Start 11/10/21 at 00:00; Stop 11/10/21 at 09:59; Status DC Dextrose/Sodium Chloride 1,000 ml @ 125 mls/hr Q8H IV ; Start 11/10/21 at 00:00; Stop 11/10/21 at 09:59; Status DC Insulin Human Regular 100 unit/ Sodium Chloride 101 ml @ 0 mls/hr CONT PRN PRN IV PER PROTOCOL; Start 11/10/21 at 00:00; Stop 11/10/21 at 09:19; Status DC Potassium Chloride/Water 100 ml @ 100 mls/hr PRN Q1HR PRN IV SEE COMMENTS Last administered on 11/10/21at 03:41; Start 11/10/21 at 00:00 Potassium Chloride/Water 100 ml @ 100 mls/hr PRN Q1HR PRN IV SEE COMMENTS; Start 11/10/21 at 00:00 Potassium Chloride/Water 100 ml @ 100 mls/hr PRN Q1HR PRN IV SEE COMMENTS Last administered on 11/10/21at 12:45; Start 11/10/21 at 00:00 Magnesium Sulfate 100 ml @ 25 mls/hr DAILY IV Last administered on 11/11/21at 09:49; Start 11/10/21 at 09:00; Stop 11/13/21 at 08:59 Sodium Chloride 1,000 ml @ 125 mls/hr Q8H IV Last administered on 11/10/21at 00:44; Start 11/10/21 at 00:45; Stop 11/10/21 at 10:07; Status DC Dextrose/Sodium Chloride 1,000 ml @ 125 mls/hr Q8H IV Last administered on 11/10/21at 03:41; Start 11/10/21 at 03:45; Stop 11/10/21 at 09:59; Status DC Nicardipine HCl (Cardene) 50 mg STK-MED ONCE IV ; Start 11/09/21 at 21:00; Stop 11/10/21 at 04:38; Status DC Sodium Chloride (Iv Sodium Chloride 0.9% 250ml) 250 ml STK-MED ONCE .ROUTE ; Start 11/09/21 at 21:00; Stop 11/10/21 at 04:38; Status DC Sodium Chloride (Iv Sodium Chloride 0.9% 100ml) 100 ml STK-MED ONCE .ROUTE ; Start 11/09/21 at 21:00; Stop 11/10/21 at 04:38; Status DC Labetalol HCl (Normodyne Iv Push) 10 mg PRN Q10MIN PRN IVP HYPERTENSION Last administered on 11/10/21at 13:43; Start 11/10/21 at 06:45 Nicardipine HCl 50 mg/Sodium Chloride 250 ml @ 25 mls/hr CONT PRN PRN IV HYPERTENSION Last administered on 11/11/21at 03:26; Start 11/10/21 at 06:45 Acetaminophen (Tylenol) 650 mg PRN Q6HRS PRN PO MILD PAIN / TEMP > 100.3'F; Start 11/10/21 at 06:45; Status Cancel Acetaminophen (Tylenol Supp) 650 mg PRN Q6HRS PRN TX MILD PAIN / TEMP > 100.3'F; Start 11/10/21 at 06:45 Ondansetron HCl (Zofran) 4 mg PRN Q6HRS PRN IVP NAUSEA/VOMITING 1ST CHOICE Last administered on 11/10/21at 20:27; Start 11/10/21 at 06:45 Fentanyl Citrate (Fentanyl 2ml Vial) 50 mcg PRN Q2HR PRN IVP PAIN Last administered on 11/10/21 11:07; Start 11/10/21 at 08:30 Iohexol (Omnipaque 300 Mg/ml) 75 ml 1X ONCE IV Last administered on 11/10/21 08:56; Start 11/10/21 at 08:30; Stop 11/10/21 at 08:31; Status DC Info (CONTRAST GIVEN -- Rx MONITORING) 1 each PRN DAILY PRN MC SEE COMMENTS; Start 11/10/21 at 08:45; Stop 11/12/21 at 08:44; Status DC Amlodipine Besylate (Norvasc) 10 mg DAILY PO Last administered on 11/12/21 08:04; Start 11/10/21 at 09:00 Atorvastatin Calcium (Lipitor) 40 mg QHS PO Last administered on 11/11/21 21:22; Start 11/10/21 at 21:00 Clonidine HCl (Catapres) 0.1 mg TID PO Last administered on 11/12/21 14:02; Start 11/10/21 at 09:00 Doxazosin Mesylate (Cardura) 4 mg DAILY PO Last administered on 11/12/21 08:01; Start 11/10/21 at 09:00 Amylase/Lipase/ Protease (Zenpep 10,000) 3 cap TIDWMEALS PO Last administered on 11/12/21 16:35; Start 11/10/21 at 09:00 Methocarbamol (Robaxin) 750 mg PRN TID PRN PO MUSCLE SPASMS Last administered on 11/11/21 09:44; Start 11/10/21 at 09:00 Ondansetron HCl (Zofran Odt) 4 mg TID PRN PO NAUSEA; Start 11/10/21 at 09:00 Oxycodone/ Acetaminophen (Percocet 7.5/ 325) 1 tab PRN Q6HRS PRN PO MODERATE TO SEVERE PAIN Last administered on 11/12/21 16:35; Start 11/10/21 at 09:00 Sevelamer Carbonate (Renvela) 800 mg TIDWMEALS PO Last administered on 11/12/21 16:34; Start 11/10/21 at 09:30 Carvedilol (Coreg) 25 mg BIDWMEALS PO Last administered on 11/12/21 16:35; Start 11/10/21 at 09:30 Hydralazine HCl (Apresoline) 100 mg TID PO Last administered on 11/12/21 14: 02; Start 11/10/21 at 09:30 Isosorbide Mononitrate (Imdur) 60 mg DAILY PO Last administered on 11/12/21 08:01; Start 11/10/21 at 09:30 Pantoprazole Sodium (Protonix) 40 mg DAILYAC PO ; Start 11/10/21 at 09:30; Stop 11/10/21 at 14:29; Status DC Trazodone HCl (Desyrel) 150 mg HS PO Last administered on 11/11/21at 21:43; Start 11/10/21 at 21:00 Acetaminophen (Tylenol) 650 mg PRN Q6HRS PRN PO MILD PAIN / TEMP > 100.3'F; Start 11/10/21 at 09:00 Insulin Human Lispro (HumaLOG) 0-8 UNITS TIDBFRMEAL SQ Last administered on 11/12/21at 12:23; Start 11/10/21 at 11:30 Baclofen (Lioresal) 5 mg TID PRN PO MUSCLE SPASMS Last administered on 21:22; Start 11/10/21 at 09:30 Prochlorperazine Edisylate (Compazine) 10 mg PRN Q6HRS PRN IV NAUSEA/VOMITING, 2ND CHOICE Last administered on 11/10/21 13:12; Start 11/10/21 at 11:15 Vancomycin HCl (Vanco Per Pharmacy) 1 each PRN DAILY PRN MC SEE COMMENTS Last administered on 11/12/21 15:53; Start 11/10/21 at 11:15 Cefepime HCl (Maxipime) 1 gm Q24H IVP Last administered on 11/12/21 12:14; Start 11/10/21 at 12:00 Vancomycin HCl 1.5 gm/Sodium Chloride 500 ml @ 250 mls/hr 1X ONCE IV Last administered on 11/10/21 13:35; Start 11/10/21 at 13:00; Stop 11/10/21 at 14:59; Status DC Potassium Chloride/Water 100 ml @ 100 mls/hr Q1H IV Last administered on 11/10/21at 18:00; Start 11/10/21 at 13:00; Stop 11/10/21 at 18:59; Status DC Pantoprazole Sodium (PROTONIX VIAL for IV PUSH) 40 mg 1X ONCE IVP Last administered on 11/10/21at 13:19; Start 11/10/21 at 13:30; Stop 11/10/21 at 13:31; Status DC Hydralazine HCl (Apresoline Inj) 20 mg PRN Q4HRS PRN IVP ELEVATED BP, SEE COMMENTS Last administered on 11/10/21at 18:52; Start 11/10/21 at 14:30 Pantoprazole Sodium (PROTONIX VIAL for IV PUSH) 40 mg DAILYAC IVP ; Start 11/11/21 at 07:30; Stop 11/10/21 at 14:32; Status DC Pantoprazole Sodium (PROTONIX VIAL for IV PUSH) 40 mg BIDAC IVP Last administered on 11/12/21at 16:34; Start 11/10/21 at 16:30 Vancomycin HCl (Vancomycin Random Level) 1 each 1X ONCE MC Last administered on 11/12/21at 05:00; Start 11/12/21 at 05:00; Stop 11/12/21 at 05:01; Status DC Sodium Chloride 1,000 ml @ 1,000 mls/hr Q1H PRN IV hypotension; Start 11/10/21 at 17:00; Stop 11/10/21 at 22:59; Status DC Albumin Human 200 ml @ 200 mls/hr 1X PRN PRN IV Hypotension; Start 11/10/21 at 17:00; Stop 11/10/21 at 22:59; Status DC Sodium Chloride 1,000 ml @ 400 mls/hr Q2H30M PRN IV PATENCY; Start 11/10/21 at 17:00; Stop 11/11/21 at 04:59; Status DC Info (PHARMACY MONITORING -- do not chart) 1 each PRN DAILY PRN MC SEE C OMMENTS; Start 11/10/21 at 17:00; Stop 11/10/21 at 16:51; Status DC Info (PHARMACY MONITORING -- do not chart) 1 each PRN DAILY PRN MC SEE COMMENTS; Start 11/10/21 at 17:00 Insulin Glargine (Lantus Syringe) 6 unit DAILY10 SQ Last administered on 11/12/21at 10:00; Start 11/11/21 at 10:00 Heparin Sodium (Porcine) (Heparin Sodium) 5,000 unit Q8HRS SQ Last administered on 11/12/21at 14:08; Start 11/11/21 at 14:00 Epoetin Jose (PROCRIT for DIALYSIS PTS) 10,000 unit 3X/WEEK ONCE SQ ; Start 11/13/21 at 09:00; Stop 11/13/21 at 09:01 Vancomycin HCl 750 mg/Sodium Chloride 250 ml @ 250 mls/hr 1X ONCE IV Last administered on 11/12/21at 11:14; Start 11/12/21 at 10:00; Stop 11/12/21 at 10:59; Status DC Vancomycin HCl 500 mg/Sodium Chloride 100 ml @ 100 mls/hr QMWF IV ; Start 11/13/21 at 16:00 Lactobacillus Rhamnosus (Culturelle) 1 cap BID PO ; Start 11/12/21 at 21:00 Active Scripts Active Ondansetron Odt (Ondansetron) 4 Mg Tab.rapdis 1 Tab PO PRN Q6-8HRS PRN Isosorbide Mononitrate Er (Isosorbide Mononitrate) 30 Mg Tab.er.24h 1 Tab PO DAILY 30 Days Clonidine Hcl 0.1 Mg Tablet 0.1 Mg PO TID 30 Days Admelog (Insulin Lispro) 100 Unit/1 Ml Vial 0 Units SQ TIDBFRMEAL 30 Days Use sliding scale at home. Amlodipine Besylate 10 Mg Tablet 10 Mg PO DAILY 30 Days Carvedilol 25 Mg Tablet 25 Mg PO BIDWMEALS 30 Days Atorvastatin Calcium 40 Mg Tablet 40 Mg PO QHS 30 Days Lantus Solostar (Insulin Glargine,Hum.rec.anlog) 100 Unit/1 Ml Insuln.pen 12 Unit SQ DAILY Percocet 7.5-325 Mg Tablet (Oxycodone/Acetaminophen) 1 Each Tablet 1 Tab PO PRN Q6HRS PRN Methocarbamol 750 Mg Tablet 750 Mg PO PRN TID PRN 10 Days Baclofen 10 Mg Tablet 5 Mg PO TID PRN Renvela (Sevelamer Carbonate) 800 Mg Tablet 800 Mg PO TIDWMEALS 30 Days Reported Isosorbide Dinitrate 30 Mg Tablet 2 Tab PO DAILY 30 Days Trazodone Hcl 150 Mg Tablet 150 Mg PO HS Fish Oil 1,000 Mg Softgel (Sargeant-3 Fatty Acids/Fish Oil) 1 Each Capsule 1 Cap PO DAILY 30 Days Omeprazole 40 Mg Capsule. 1 Cap PO DAILY Zenpep 10,000 Units Capsule (Lipase/Protease/Amylase) 1 Each Capsule.dr 3 Cap PO TIDWMEALS Doxazosin Mesylate 4 Mg Tablet 1 Tab PO DAILY Hydralazine Hcl 100 Mg Tablet 1 Tab PO TID Aspir 81 (Aspirin) 81 Mg Tablet.dr 1 Tab PO DAILY Vitals/I & O Vital Sign - Last 24 Hours 11/11/21 11/11/21 11/11/21 11/11/21 17:38 19:59 20:00 21:22 Temp 97.8 97.8 Pulse 70 68 68 Resp 16 B/P (MAP) 140/57 145/65 (91) 145/65 Pulse Ox 98 O2 Delivery Nasal Cannula Nasal Cannula O2 Flow Rate 2.0 3.0 11/11/21 11/11/21 11/11/21 11/12/21 21:22 22:44 23:00 03:02 Temp 97.9 97.9 98.1 97.9 97.9 98.1 Pulse 68 57 57 62 Resp 18 18 16 B/P (MAP) 145/65 129/60 (83) 129/60 (83) 148/65 (92) Pulse Ox 99 99 98 O2 Delivery Nasal Cannula Nasal Cannula Nasal Cannula O2 Flow Rate 3.0 3.0 3.0 11/12/21 11/12/21 11/12/21 11/12/21 07:00 08:00 08:01 08:01 Temp 98.9 98.9 Pulse 74 62 62 Resp 16 B/P (MAP) 158/71 (100) 148/65 148/65 Pulse Ox 95 O2 Delivery Room Air Nasal Cannula O2 Flow Rate 3.0 11/12/21 11/12/21 11/12/21 11/12/21 08:02 08:02 08:03 08:04 Pulse 62 62 62 62 B/P (MAP) 148/65 148/65 148/65 148/65 11/12/21 11/12/21 11/12/21 11/12/21 10:34 14:02 14:02 15:00 Temp 99.5 98.1 99.5 98.1 Pulse 68 68 68 77 Resp 16 16 B/P (MAP) 161/68 (99) 161/68 161/68 171/75 (107) Pulse Ox 96 97 O2 Delivery Room Air Room Air 11/12/21 11/12/21 16:35 16:35 Pulse 77 Resp 18 B/P (MAP) 171/75 O2 Delivery Room Air Intake and Output 11/11/21 11/11/21 11/12/21 15:00 23:00 07:00 Intake Total 600 ml 400 ml 0 ml Output Total 10 ml 65 ml Balance 590 ml 335 ml 0 ml Justicifation of Admission Dx: Justifications for Admission: Justification of Admission Dx: N/A TRISTAN ROSADO MD Nov 12, 2021 17:32
[2021-11-12] MEDS: CLOPIDOGREL BISULFATE 75 MG TABLET PO SCH (18:10)
[2021-11-12] MEDS: ASPIRIN ENTERIC COATED 81 MG TABLET.DR. PO SCH (18:10)
[2021-11-12] MEDS: traZODone 50 MG TABLET. PO SCH (22:35)
[2021-11-12] MEDS: BACLOFEN 10 MG TABLET. PO PRN (22:37)
[2021-11-12] MEDS: ATORVASTATIN CALCIUM 40 MG TABLET. PO SCH (22:39)
[2021-11-12] MEDS: LACTOBACILLUS RHAMNOSUS GG 1 CAPSULE. PO SCH (22:40)
[2021-11-13 02:45] VITALS: BP 168/72
[2021-11-13] MEDS: oxyCODONE/APAP 7.5/325 1 TAB TABLET PO PRN ×3 (04:42→18:29)
[2021-11-13] MEDS: HEPARIN for SUB-Q USE 5,000 UNIT/ML VIAL. SQ SCH ×3 (04:51→21:32)
[2021-11-13 05:29] LABS: BASO # 0.1 x10^3/uL (0.0-0.2); BASO % 1 % (0-3); EOS # 0.3 x10^3/uL (0.0-0.7); EOS % 4 % (0-3); HEMATOCRIT 27.4 % (39.0-53.0); HEMOGLOBIN 8.9 g/dL (13.0-17.5); LYMPH # 2.4 x10^3/uL (1.0-4.8); LYMPH % 25 % (24-48); MEAN CORPUSCULAR HEMOGLOBIN 28 pg (25-35); MEAN CORPUSCULAR HGB CONC 33 g/dL (31-37); MEAN CORPUSCULAR VOLUME 84 fL (79-100); MONO # 0.7 x10^3/uL (0.0-1.1); MONO % 7 % (0-9); NEUT % 64 % (31-73); PLATELET COUNT 252 x10^3/uL (140-400); RED BLOOD COUNT 3.26 x10^6/uL (4.30-5.70); RED CELL DISTRIBUTION WIDTH 16.2 % (11.5-14.5); WHITE BLOOD COUNT 9.4 x10^3/uL (4.0-11.0)
[2021-11-13 05:51] LABS: ALBUMIN 1.7 g/dL (3.4-5.0); CALCIUM 7.5 mg/dL (8.5-10.1); CREATININE 6.7 mg/dL (0.7-1.3); GFR 10.5; PHOSPHORUS 3.3 mg/dL (2.6-4.7); POTASSIUM 3.8 mmol/L (3.5-5.1)
[2021-11-13 07:00] VITALS: BP 160/72
[2021-11-13] MEDS: LIPASE/PROTEAS/AMYLAS 10/32/42 CAPSULE.DR. PO SCH ×3 (08:00→18:29)
[2021-11-13] MEDS: CARVEDILOL 12.5 MG TABLET. PO SCH ×2 (08:00→18:30)
[2021-11-13] MEDS ORDERED: IV NORMAL SALINE 1000ML BAG 1,000 ML IV PRN ×2 (08:00)
[2021-11-13] MEDS: SEVELAMER CARBONATE 800 MG TABLET. PO SCH ×3 (08:00→18:28)
[2021-11-13] MEDS ORDERED: DIALYSIS PATIENT. MC PRN (08:00)
--- NOTE | 2021-11-13 08:31 | PDOC ---
IM PROGRESS NOTES- Subjective Subjective No c/o chest pain,dyspnea. Speech is better. Other systems reviewed and are negative. Aphasia is better. Objective Vitals/I&O Vital Signs Date Time Temp Pulse Resp B/P (MAP) Pulse Ox O2 Delivery O2 Flow Rate FiO2 11/13/21 02:45 98.9 64 16 168/72 (104) 100 Room Air 98.9 11/12/21 20:00 3.0 I & O 11/12/21 11/12/21 11/13/21 15:00 23:00 07:00 Intake Total 300 ml 1780 ml 0 ml Output Total 50 ml Balance 300 ml 1730 ml 0 ml Physical Exam Physical Exam General Appearance - alert and in no distress Chest - decreased breath sounds at bases Heart - S1 and S2 normal Abdomen - soft, non tender Neurological - alert and oriented Musculoskeletal - generalized weakness Extremities - no edema Labs Laboratory Tests Test 11/12/21 11:34 11/12/21 16:21 11/12/21 20:50 11/12/21 23:10 Glucose (Fingerstick) 305 mg/dL (70-99) H 104 mg/dL (70-99) H 48 mg/dL (70-99) *L 97 mg/dL (70-99) Test 11/13/21 00:13 11/13/21 05:00 Glucose (Fingerstick) 99 mg/dL (70-99) White Blood Count 9.4 x10^3/uL (4.0-11.0) Red Blood Count 3.26 x10^6/uL (4.30-5.70) L Hemoglobin 8.9 g/dL (13.0-17.5) L Hematocrit 27.4 % (39.0-53.0) L Mean Corpuscular Volume 84 fL (79-100) Mean Corpuscular Hemoglobin 28 pg (25-35) Mean Corpuscular Hemoglobin Concent 33 g/dL (31-37) Red Cell Distribution Width 16.2 % (11.5-14.5) H Platelet Count 252 x10^3/uL (140-400) Neutrophils (%) (Auto) 64 % (31-73) Lymphocytes (%) (Auto) 25 % (24-48) Monocytes (%) (Auto) 7 % (0-9) Eosinophils (%) (Auto) 4 % (0-3) H Basophils (%) (Auto) 1 % (0-3) Neutrophils # (Auto) 6.0 x10^3/uL (1.8-7.7) Lymphocytes # (Auto) 2.4 x10^3/uL (1.0-4.8) Monocytes # (Auto) 0.7 x10^3/uL (0.0-1.1) Eosinophils # (Auto) 0.3 x10^3/uL (0.0-0.7) Basophils # (Auto) 0.1 x10^3/uL (0.0-0.2) Sodium Level 133 mmol/L (136-145) L Potassium Level 3.8 mmol/L (3.5-5.1) Chloride Level 98 mmol/L (98-107) Carbon Dioxide Level 26 mmol/L (21-32) Anion Gap 9 (6-14) Blood Urea Nitrogen 27 mg/dL (8-26) H Creatinine 6.7 mg/dL (0.7-1.3) H Estimated GFR (Cockcroft-Gault) 10.5 Glucose Level 182 mg/dL (70-99) H Calcium Level 7.5 mg/dL (8.5-10.1) L Phosphorus Level 3.3 mg/dL (2.6-4.7) Albumin 1.7 g/dL (3.4-5.0) L Laboratory Tests 11/13/21 05:00 Laboratory Tests 11/13/21 05:00 Meds Current Medications Medications (Trade) Dose Ordered Sig/Ravinder Route PRN Reason Start Time Stop Time Status Last Admin Dose Admin Vancomycin HCl 750 mg/Sodium Chloride 250 ml @ 250 mls/hr 1X ONCE IV 11/12/21 10:00 11/12/21 10:59 DC 11/12/21 11:14 Lactobacillus Rhamnosus (Culturelle) 1 cap BID PO 11/12/21 21:00 11/12/21 22:40 Aspirin (Ecotrin) 81 mg DAILYWBKFT PO 11/12/21 17:45 11/12/21 18:10 Clopidogrel Bisulfate (Plavix) 75 mg DAILYWBKFT PO 11/12/21 17:45 11/12/21 18:10 Assessment Assessment IMP;chest wall pain 1. Acute cerebrovascular accident with aphasia, status post TPA treatment. 2. Acute hypertensive crisis. 3. Diabetic ketoacidosis. 4. Fever, etiology not clear. 5. End-stage renal disease, on hemodialysis. 6. 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 7. Osteoarthritis, status post neck surgery and lumbar surgery and chronic pain. 8. Gastroesophageal reflux disease. 9. Coronary artery disease with history of stent placement. 10. Chronic hypoxic respiratory failure, on oxygen by nasal cannula 2 liters per minute. 11. Chronic obstructive pulmonary disease. 14. Mixed hyperlipidemia. 15. Chronic pancreatitis. 16. Anemia. 17. Physical deconditioning. 18. Cervical spinal stenosis and cervical radiculopathy with several neck surgeries. PLAN:place Lidoderm patch for pain control. BS good . speech normal 1. Acute CVA. The patient had TPA. Consulted Dr. Garner. Aphasia is better. CTA No intracranial large vessel occlusion. No stenosis of the cervical carotid or vertebral arteries, although not well evaluated at the skull base. Brain MRI 1. No evidence of acute intracranial hemorrhage, mass or acute infarct. 2. Mild chronic small vessel ischemic changes and atrophy. 3. Mild sinus disease. Patient is on ASA at home. Plavix added. 2. Diabetes mellitus with very high sugars. Treated for DKA. He is not hypoglycemic. Anion gap is getting worse, so he was treated with insulin, but he is stable and the blood sugars are stable and I will discontinue insulin drip and put him on sliding scale insulin. Restart low dose Lantus. HbA1C 10.2. Hypoglycemia- decrease Lantus to 4 units s/c daily. 3. End-stage renal disease, on hemodialysis. Consult Dr. Garcia for Nephrology evaluation and management. 4. Fever, etiology not clear. Order urinalysis and culture. Chest x-ray is negative. Negative blood cultures so far. Consult Dr. Aguilar for Infectious Disease evaluation and management. Started on empiric IV Vancomycin and Cefipime. U/a negative. Leukocytosis is improving. 5. Consult PT, OT, speech therapy evaluation and management. 6. Hypertensive crisis. Continue Cardene drip. Consult cardiology. 7. Nausea,vomiting, hiccups. Hs GERD. BID IV Protonix. Consulted GI- . KUB ? minimal ileus. Better. Advance diet. Hypomagnesemia- replace Magnesium.. For details, please refer to the orders. Long-term as well as short-term prognosis of this patient is very poor due to his multiple medical problems. If stable, discharge him tomorrow. Plan Plan For more details regarding further plans, please refer to the orders. Justifications for Admission Other Justification TRINA ALDANA MD Nov 13, 2021 08:31
[2021-11-13] MEDS: INSULIN LISPRO 300 UNITS/3 ML VIAL. SQ SCH ×3 (08:45→18:36)
[2021-11-13] MEDS ORDERED: EPOETIN ALFA 20,000 UNIT/ML VIAL for DIALYSIS PTS. SQ ONE (09:00)
[2021-11-13] MEDS: INSULIN GLARGINE SYRINGE. SQ SCH (09:00)
[2021-11-13] MEDS: cloNIDine HCL 0.1 MG TABLET PO SCH ×3 (09:00→21:24)
--- NOTE | 2021-11-13 09:44 | PDOC ---
DATE OF SERVICE DATE: 11/13/21 TIME: 09:44 SUBJECTIVE ROS Seen on dialysis, tolerating well No complaints OBJECTIVE Vital Signs Vital Signs Date Time Temp Pulse Resp B/P (MAP) Pulse Ox O2 Delivery O2 Flow Rate FiO2 11/13/21 08:00 Room Air 11/13/21 07:00 160/72 (101) 11/13/21 02:45 98.9 64 16 100 98.9 11/12/21 20:00 3.0 I & 0 Intake and Output 11/13/21 07:00 Intake Total 2080 ml Output Total 50 ml Balance 2030 ml Intake Oral 2080 ml Output Urine Total 50 ml PHYSICAL EXAM Physical Exam General: NAD , Lying in bed HEENT:Normocephalic andatraumatic. OM moist Neck:Supple without bruit, no meningismus Lungs CTA , Non labored CV S1S2 Abd Soft, NT , BS + Integum- No Rash Ext No LE edema Neuro- Grossly Normal, Moving all 4 extrem. Aphasia resolved No Bob, No SP pr CVA tenderness DIAGNOSIS/ASSESSMENT Assessment & Plan ESRD On HD MWF Seen on dialysis , tolerating well. Continue as ordered. Discussed with emergency detail driver. Acute cerebrovascular accident with aphasia, status post TPA treatment Per neurology may have just been hyperglycemia and hypertension, status-post alteplase. MRI at 24 hours showed no new stroke, CT angiogram negative Acute hypertensive crisis- Renal Doppler in Aug 2019, No e/o JOSELYN . On multiple meds including . Card manages Diabetic ketoacidosis. HypoNatremia- Chronic. History of severe Apr 2021 Na to 118 . Na improved since we dced Mirtazipine . Corrected Sodium currently 128. 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 Coronary artery disease with history of stent placement. Chronic hypoxic respiratory failure, on oxygen by nasal cannula 2 liters per minute. Chronic obstructive pulmonary disease. History of prostate cancer.s/p Radiation treatment Hx of COVID 19 Pneumonia Chronic pancreatitis. COMMENT/RELEVANT DATA Meds Current Medications Medications (Trade) Dose Ordered Sig/Ravinder Start Time Stop Time Status Last Admin Dose Admin Acetaminophen (Tylenol Supp) 650 mg PRN Q6HRS PRN 11/10/21 06:45 Acetaminophen (Tylenol) 650 mg PRN Q6HRS PRN 11/10/21 09:00 Albumin Human 200 ml @ 200 mls/hr 1X PRN PRN 11/10/21 17:00 11/10/21 22:59 DC Alteplase, Recombinant 48.6 ml @ 48.6 mls/hr 1X ONCE 11/09/21 20:00 11/09/21 20:59 DC 11/09/21 20:21 48.6 MLS/HR Amlodipine Besylate (Norvasc) 10 mg DAILY 11/10/21 09:00 11/12/21 08:04 10 MG Amylase/Lipase/ Protease (Zenpep 10,000) 3 cap TIDWMEALS 11/10/21 09:00 11/12/21 16:35 3 CAP Aspirin (Ecotrin) 81 mg DAILYWBKFT 11/12/21 17:45 11/12/21 18:10 81 MG Atorvastatin Calcium (Lipitor) 40 mg QHS 11/10/21 21:00 11/12/21 22:39 40 MG Baclofen (Lioresal) 5 mg TID PRN 11/10/21 09:30 11/12/21 22:37 5 MG Carvedilol (Coreg) 25 mg BIDWMEALS 11/10/21 09:30 11/12/21 16:35 25 MG Cefepime HCl (Maxipime) 1 gm Q24H 11/10/21 12:00 11/12/21 12:14 1 GM Clonidine HCl (Catapres) 0.1 mg TID 11/10/21 09:00 11/12/21 22:39 0.1 MG Clopidogrel Bisulfate (Plavix) 75 mg DAILYWBKFT 11/12/21 17:45 11/12/21 18:10 75 MG Dextrose/Sodium Chloride 1,000 ml @ 125 mls/hr Q8H 11/10/21 03:45 11/10/21 09:59 DC 11/10/21 03:41 125 MLS/HR Doxazosin Mesylate (Cardura) 4 mg DAILY 11/10/21 09:00 11/12/21 08:01 4 MG Epoetin Jose (PROCRIT for DIALYSIS PTS) 10,000 unit 3X/WEEK ONCE 11/13/21 09:00 11/13/21 09:01 DC Fentanyl Citrate (Fentanyl 2ml Vial) 50 mcg PRN Q2HR PRN 11/10/21 08:30 11/10/21 11:07 50 MCG Heparin Sodium (Porcine) (Heparin Sodium) 5,000 unit Q8HRS 11/11/21 14:00 11/13/21 04:51 5,000 UNIT Hydralazine HCl (Apresoline Inj) 20 mg PRN Q4HRS PRN 11/10/21 14:30 11/10/21 18:52 20 MG Hydralazine HCl (Apresoline) 100 mg TID 11/10/21 09:30 11/12/21 22:38 100 MG Info (CONTRAST GIVEN -- Rx MONITORING) 1 each PRN DAILY PRN 11/10/21 08:45 11/12/21 08:44 DC Info (PHARMACY MONITORING -- do not chart) 1 each PRN DAILY PRN 11/13/21 08:00 Insulin Glargine (Lantus Syringe) 4 unit DAILY10 11/13/21 10:00 Insulin Human Lispro (HumaLOG) 0-8 UNITS TIDBFRMEAL 11/10/21 11:30 11/13/21 08:45 2 UNITS Insulin Human Regular 100 unit/ Sodium Chloride 101 ml @ 0 mls/hr CONT PRN PRN 11/10/21 00:00 11/10/21 09:19 DC Iohexol (Omnipaque 300 Mg/ml) 75 ml 1X ONCE 11/10/21 08:30 11/10/21 08:31 DC 11/10/21 08:56 75 ML Iohexol (Omnipaque 350 Mg/ml) 75 ml 1X ONCE 11/09/21 19:00 11/09/21 19:01 DC Isosorbide Mononitrate (Imdur) 60 mg DAILY 11/10/21 09:30 11/12/21 08:01 60 MG Labetalol HCl (Normodyne Iv Push) 10 mg PRN Q10MIN PRN 11/10/21 06:45 11/10/21 13:43 10 MG Lactobacillus Rhamnosus (Culturelle) 1 cap BID 11/12/21 21:00 11/12/21 22:40 1 CAP Magnesium Sulfate 100 ml @ 25 mls/hr DAILY 11/10/21 09:00 11/13/21 08:59 DC 11/11/21 09:49 25 MLS/HR Methocarbamol (Robaxin) 750 mg PRN TID PRN 11/10/21 09:00 11/11/21 09:44 750 MG Nicardipine HCl (Cardene) 50 mg STK-MED ONCE 11/09/21 21:00 11/10/21 04:38 DC Nicardipine HCl 50 mg/Sodium Chloride 250 ml @ 25 mls/hr CONT PRN PRN 11/10/21 06:45 11/11/21 03:26 25 MLS/HR Ondansetron HCl (Zofran Odt) 4 mg TID PRN 11/10/21 09:00 Ondansetron HCl (Zofran) 4 mg PRN Q6HRS PRN 11/10/21 06:45 11/10/21 20:27 4 MG Oxycodone/ Acetaminophen (Percocet 7.5/ 325) 1 tab PRN Q6HRS PRN 11/10/21 09:00 11/13/21 04:42 1 TAB Pantoprazole Sodium (PROTONIX VIAL for IV PUSH) 40 mg BIDAC 11/10/21 16:30 11/12/21 16:34 40 MG Pantoprazole Sodium (Protonix) 40 mg DAILYAC 11/10/21 09:30 11/10/21 14:29 DC Potassium Chloride/Water 100 ml @ 100 mls/hr Q1H 11/10/21 13:00 11/10/21 18:59 DC 11/10/21 18:00 100 MLS/HR Potassium Chloride (Klor-Con) 40 meq 1X ONCE 11/09/21 20:30 11/09/21 20:31 DC Prochlorperazine Edisylate (Compazine) 10 mg PRN Q6HRS PRN 11/10/21 11:15 11/10/21 13:12 10 MG Sevelamer Carbonate (Renvela) 800 mg TIDWMEALS 11/10/21 09:30 11/12/21 16:34 800 MG Sodium Chloride 1,000 ml @ 400 mls/hr Q2H30M PRN 11/13/21 08:00 11/13/21 19:59 Sodium Chloride (Iv Sodium Chloride 0.9% 100ml) 100 ml STK-MED ONCE 11/09/21 21:00 11/10/21 04:38 DC Sodium Chloride (Iv Sodium Chloride 0.9% 250ml) 250 ml STK-MED ONCE 11/09/21 21:00 11/10/21 04:38 DC Trazodone HCl (Desyrel) 150 mg HS 11/10/21 21:00 11/12/21 22:35 150 MG Vancomycin HCl (Vanco Per Pharmacy) 1 each PRN DAILY PRN 11/10/21 11:15 11/12/21 15:53 1 EACH Vancomycin HCl (Vancomycin Random Level) 1 each 1X ONCE 11/12/21 05:00 11/12/21 05:01 DC 11/12/21 05:00 1 EACH Vancomycin HCl 1.5 gm/Sodium Chloride 500 ml @ 250 mls/hr 1X ONCE 11/10/21 13:00 11/10/21 14:59 DC 11/10/21 13:35 250 MLS/HR Vancomycin HCl 500 mg/Sodium Chloride 100 ml @ 100 mls/hr QMWF 11/13/21 16:00 Vancomycin HCl 750 mg/Sodium Chloride 250 ml @ 250 mls/hr 1X ONCE 11/12/21 10:00 11/12/21 10:59 DC 11/12/21 11:14 250 MLS/HR Lab Laboratory Tests Test 11/12/21 11:34 11/12/21 16:21 11/12/21 20:50 11/12/21 23:10 Glucose (Fingerstick) 305 mg/dL (70-99) 104 mg/dL (70-99) 48 mg/dL (70-99) 97 mg/dL (70-99) Test 11/13/21 00:13 11/13/21 05:00 11/13/21 08:37 Glucose (Fingerstick) 99 mg/dL (70-99) 177 mg/dL (70-99) White Blood Count 9.4 x10^3/uL (4.0-11.0) Red Blood Count 3.26 x10^6/uL (4.30-5.70) Hemoglobin 8.9 g/dL (13.0-17.5) Hematocrit 27.4 % (39.0-53.0) Mean Corpuscular Volume 84 fL (79-100) Mean Corpuscular Hemoglobin 28 pg (25-35) Mean Corpuscular Hemoglobin Concent 33 g/dL (31-37) Red Cell Distribution Width 16.2 % (11.5-14.5) Platelet Count 252 x10^3/uL (140-400) Neutrophils (%) (Auto) 64 % (31-73) Lymphocytes (%) (Auto) 25 % (24-48) Monocytes (%) (Auto) 7 % (0-9) Eosinophils (%) (Auto) 4 % (0-3) Basophils (%) (Auto) 1 % (0-3) Neutrophils # (Auto) 6.0 x10^3/uL (1.8-7.7) Lymphocytes # (Auto) 2.4 x10^3/uL (1.0-4.8) Monocytes # (Auto) 0.7 x10^3/uL (0.0-1.1) Eosinophils # (Auto) 0.3 x10^3/uL (0.0-0.7) Basophils # (Auto) 0.1 x10^3/uL (0.0-0.2) Sodium Level 133 mmol/L (136-145) Potassium Level 3.8 mmol/L (3.5-5.1) Chloride Level 98 mmol/L (98-107) Carbon Dioxide Level 26 mmol/L (21-32) Anion Gap 9 (6-14) Blood Urea Nitrogen 27 mg/dL (8-26) Creatinine 6.7 mg/dL (0.7-1.3) Estimated GFR (Cockcroft-Gault) 10.5 Glucose Level 182 mg/dL (70-99) Calcium Level 7.5 mg/dL (8.5-10.1) Phosphorus Level 3.3 mg/dL (2.6-4.7) Albumin 1.7 g/dL (3.4-5.0) Results All relevant outside records, renal labs, imaging studies, telemetry/EKG's were reviewed. Justicifation of Admission Dx: Justifications for Admission: Justification of Admission Dx: N/A CARLO CHAUHAN MD Nov 13, 2021 09:44
--- NOTE | 2021-11-13 10:05 | PDOC ---
Date of Service: DATE: 11/13/21 TIME: 10:00 Subjective: Subjective: No GI complaints - no vomiting. Says might get to discharge tomorrow. Objective: Vital Signs: Vital Signs Date Time Temp Pulse Resp B/P (MAP) Pulse Ox O2 Delivery O2 Flow Rate FiO2 11/13/21 08:00 Room Air 11/13/21 07:00 160/72 (101) 11/13/21 02:45 98.9 64 16 100 98.9 11/12/21 20:00 3.0 Labs: Laboratory Tests Test 11/12/21 11:34 11/12/21 16:21 11/12/21 20:50 11/12/21 23:10 Glucose (Fingerstick) 305 mg/dL 104 mg/dL 48 mg/dL 97 mg/dL Test 11/13/21 00:13 11/13/21 05:00 11/13/21 08:37 Glucose (Fingerstick) 99 mg/dL 177 mg/dL White Blood Count 9.4 x10^3/uL Red Blood Count 3.26 x10^6/uL Hemoglobin 8.9 g/dL Hematocrit 27.4 % Mean Corpuscular Volume 84 fL Mean Corpuscular Hemoglobin 28 pg Mean Corpuscular Hemoglobin Concent 33 g/dL Red Cell Distribution Width 16.2 % Platelet Count 252 x10^3/uL Neutrophils (%) (Auto) 64 % Lymphocytes (%) (Auto) 25 % Monocytes (%) (Auto) 7 % Eosinophils (%) (Auto) 4 % Basophils (%) (Auto) 1 % Neutrophils # (Auto) 6.0 x10^3/uL Lymphocytes # (Auto) 2.4 x10^3/uL Monocytes # (Auto) 0.7 x10^3/uL Eosinophils # (Auto) 0.3 x10^3/uL Basophils # (Auto) 0.1 x10^3/uL Sodium Level 133 mmol/L Potassium Level 3.8 mmol/L Chloride Level 98 mmol/L Carbon Dioxide Level 26 mmol/L Anion Gap 9 Blood Urea Nitrogen 27 mg/dL Creatinine 6.7 mg/dL Estimated GFR (Cockcroft-Gault) 10.5 Glucose Level 182 mg/dL Calcium Level 7.5 mg/dL Phosphorus Level 3.3 mg/dL Albumin 1.7 g/dL Imaging: Brain MRI 11/11 IMPRESSION: 1. No evidence of acute intracranial hemorrhage, mass or acute infarct. 2. Mild chronic small vessel ischemic changes and atrophy. 3. Mild sinus disease. KUB 11/10 IMPRESSION: 1. No small bowel obstruction. 2. Large volume of stool. 3. Pancreatic calcifications suggesting chronic pancreatitis. PE: GEN: NAD LUNGS: CTAB HEART: RRR ABD: S/ND/NT NEURO/PSYCH: A & O 3 A/P: Suspected stroke - aphasia resolving Vomiting - resolved HTN, ESRD on HD, DM, ACD GERD, chronic pancreatitis -- Tolerating diet - change to PO PPI. Justicifation of Admission Dx: Justifications for Admission: Justification of Admission Dx: N/A KIMMY MARAVILLA Nov 13, 2021 10:04
--- NOTE | 2021-11-13 10:15 | PDOC ---
PROGRESS NOTES Date of Service DATE: 11/13/21 TIME: 10:11 Assessment Problems Medical Problems: (1) Acute hypokalemia Status: Acute (2) Aphasia due to acute stroke Status: Acute (3) Hyperglycemia due to type 2 diabetes mellitus Status: Acute (4) Hypertensive urgency Status: Acute Stroke symptoms, may have just been hyperglycemia and hypertension, status-post alteplase. MRI at 24 hours showed no new stroke, CT angiogram negative Plan Awaiting echocardiogram Aspirin and Plavix. After a month the aspirin can be discontinued and Plavix continued monotherapy. Continue with atorvastatin Encouraged compliance with blood pressures, diabetes. Subjective No complaints Objective Vital Signs Date Time Temp Pulse Resp B/P (MAP) Pulse Ox O2 Delivery O2 Flow Rate FiO2 11/13/21 08:00 Room Air 11/13/21 07:00 160/72 (101) 11/13/21 02:45 98.9 64 16 100 98.9 11/12/21 20:00 3.0 Intake and Output 11/13/21 07:00 Intake Total 2080 ml Output Total 50 ml Balance 2030 ml Intake Oral 2080 ml Output Urine Total 50 ml PHYSICAL EXAM Alert. Oriented to time, place and person. PERRL. EOMI. CN: no focal findings. Muscle tone: normal. Muscle strength: 5/5 DTR: 1+ Plantar reflex: Flexor Gait: not examined in bed. Sensory exam: no abnormal findings. No cerebellar signs elicited. Review of Relevant I have reviewed the following items donell (where applicable) has been applied. Labs Laboratory Tests Test 11/11/21 12:33 11/11/21 17:22 11/11/21 20:45 11/12/21 06:15 Glucose (Fingerstick) 249 mg/dL (70-99) 95 mg/dL (70-99) 80 mg/dL (70-99) White Blood Count 12.7 x10^3/uL (4.0-11.0) Red Blood Count 3.45 x10^6/uL (4.30-5.70) Hemoglobin 9.4 g/dL (13.0-17.5) Hematocrit 28.8 % (39.0-53.0) Mean Corpuscular Volume 83 fL (79-100) Mean Corpuscular Hemoglobin 27 pg (25-35) Mean Corpuscular Hemoglobin Concent 33 g/dL (31-37) Red Cell Distribution Width 16.4 % (11.5-14.5) Platelet Count 261 x10^3/uL (140-400) Neutrophils (%) (Auto) 67 % (31-73) Lymphocytes (%) (Auto) 24 % (24-48) Monocytes (%) (Auto) 7 % (0-9) Eosinophils (%) (Auto) 2 % (0-3) Basophils (%) (Auto) 1 % (0-3) Neutrophils # (Auto) 8.4 x10^3/uL (1.8-7.7) Lymphocytes # (Auto) 3.1 x10^3/uL (1.0-4.8) Monocytes # (Auto) 0.8 x10^3/uL (0.0-1.1) Eosinophils # (Auto) 0.3 x10^3/uL (0.0-0.7) Basophils # (Auto) 0.1 x10^3/uL (0.0-0.2) Sodium Level 135 mmol/L (136-145) Potassium Level 3.7 mmol/L (3.5-5.1) Chloride Level 100 mmol/L (98-107) Carbon Dioxide Level 27 mmol/L (21-32) Anion Gap 8 (6-14) Blood Urea Nitrogen 19 mg/dL (8-26) Creatinine 5.5 mg/dL (0.7-1.3) Estimated GFR (Cockcroft-Gault) 13.1 BUN/Creatinine Ratio 3 (6-20) Glucose Level 126 mg/dL (70-99) Calcium Level 7.9 mg/dL (8.5-10.1) Magnesium Level 2.6 mg/dL (1.8-2.4) Total Bilirubin 0.4 mg/dL (0.2-1.0) Aspartate Amino Transf (AST/SGOT) 14 U/L (15-37) Alanine Aminotransferase (ALT/SGPT) 13 U/L (16-63) Alkaline Phosphatase 93 U/L (46-116) Total Protein 5.2 g/dL (6.4-8.2) Albumin 1.8 g/dL (3.4-5.0) Albumin/Globulin Ratio 0.5 (1.0-1.7) Random Vancomycin Level 12.9 mcg/mL Test 11/12/21 07:20 11/12/21 11:34 11/12/21 16:21 11/12/21 20:50 Glucose (Fingerstick) 134 mg/dL (70-99) 305 mg/dL (70-99) 104 mg/dL (70-99) 48 mg/dL (70-99) Test 11/12/21 23:10 11/13/21 00:13 11/13/21 05:00 11/13/21 08:37 Glucose (Fingerstick) 97 mg/dL (70-99) 99 mg/dL (70-99) 177 mg/dL (70-99) White Blood Count 9.4 x10^3/uL (4.0-11.0) Red Blood Count 3.26 x10^6/uL (4.30-5.70) Hemoglobin 8.9 g/dL (13.0-17.5) Hematocrit 27.4 % (39.0-53.0) Mean Corpuscular Volume 84 fL (79-100) Mean Corpuscular Hemoglobin 28 pg (25-35) Mean Corpuscular Hemoglobin Concent 33 g/dL (31-37) Red Cell Distribution Width 16.2 % (11.5-14.5) Platelet Count 252 x10^3/uL (140-400) Neutrophils (%) (Auto) 64 % (31-73) Lymphocytes (%) (Auto) 25 % (24-48) Monocytes (%) (Auto) 7 % (0-9) Eosinophils (%) (Auto) 4 % (0-3) Basophils (%) (Auto) 1 % (0-3) Neutrophils # (Auto) 6.0 x10^3/uL (1.8-7.7) Lymphocytes # (Auto) 2.4 x10^3/uL (1.0-4.8) Monocytes # (Auto) 0.7 x10^3/uL (0.0-1.1) Eosinophils # (Auto) 0.3 x10^3/uL (0.0-0.7) Basophils # (Auto) 0.1 x10^3/uL (0.0-0.2) Sodium Level 133 mmol/L (136-145) Potassium Level 3.8 mmol/L (3.5-5.1) Chloride Level 98 mmol/L (98-107) Carbon Dioxide Level 26 mmol/L (21-32) Anion Gap 9 (6-14) Blood Urea Nitrogen 27 mg/dL (8-26) Creatinine 6.7 mg/dL (0.7-1.3) Estimated GFR (Cockcroft-Gault) 10.5 Glucose Level 182 mg/dL (70-99) Calcium Level 7.5 mg/dL (8.5-10.1) Phosphorus Level 3.3 mg/dL (2.6-4.7) Albumin 1.7 g/dL (3.4-5.0) Laboratory Tests Test 11/12/21 11:34 11/12/21 16:21 11/12/21 20:50 11/12/21 23:10 Glucose (Fingerstick) 305 mg/dL (70-99) 104 mg/dL (70-99) 48 mg/dL (70-99) 97 mg/dL (70-99) Test 11/13/21 00:13 11/13/21 05:00 11/13/21 08:37 Glucose (Fingerstick) 99 mg/dL (70-99) 177 mg/dL (70-99) White Blood Count 9.4 x10^3/uL (4.0-11.0) Red Blood Count 3.26 x10^6/uL (4.30-5.70) Hemoglobin 8.9 g/dL (13.0-17.5) Hematocrit 27.4 % (39.0-53.0) Mean Corpuscular Volume 84 fL (79-100) Mean Corpuscular Hemoglobin 28 pg (25-35) Mean Corpuscular Hemoglobin Concent 33 g/dL (31-37) Red Cell Distribution Width 16.2 % (11.5-14.5) Platelet Count 252 x10^3/uL (140-400) Neutrophils (%) (Auto) 64 % (31-73) Lymphocytes (%) (Auto) 25 % (24-48) Monocytes (%) (Auto) 7 % (0-9) Eosinophils (%) (Auto) 4 % (0-3) Basophils (%) (Auto) 1 % (0-3) Neutrophils # (Auto) 6.0 x10^3/uL (1.8-7.7) Lymphocytes # (Auto) 2.4 x10^3/uL (1.0-4.8) Monocytes # (Auto) 0.7 x10^3/uL (0.0-1.1) Eosinophils # (Auto) 0.3 x10^3/uL (0.0-0.7) Basophils # (Auto) 0.1 x10^3/uL (0.0-0.2) Sodium Level 133 mmol/L (136-145) Potassium Level 3.8 mmol/L (3.5-5.1) Chloride Level 98 mmol/L (98-107) Carbon Dioxide Level 26 mmol/L (21-32) Anion Gap 9 (6-14) Blood Urea Nitrogen 27 mg/dL (8-26) Creatinine 6.7 mg/dL (0.7-1.3) Estimated GFR (Cockcroft-Gault) 10.5 Glucose Level 182 mg/dL (70-99) Calcium Level 7.5 mg/dL (8.5-10.1) Phosphorus Level 3.3 mg/dL (2.6-4.7) Albumin 1.7 g/dL (3.4-5.0) Microbiology 11/10/21 Blood Culture - Preliminary, Resulted NO GROWTH AFTER 2 DAYS Medications Current Medications Iohexol (Omnipaque 350 Mg/ml) 75 ml 1X ONCE IV ; Start 11/09/21 at 19:00; Stop 11/09/21 at 19:01; Status DC Info (CONTRAST GIVEN -- Rx MONITORING) 1 each PRN DAILY PRN MC SEE COMMENTS; Start 11/09/21 at 19:00; Stop 11/10/21 at 15:04; Status DC Sodium Chloride 250 ml @ 500 mls/hr 1X ONCE IV ; Start 11/09/21 at 19:15; Stop 11/09/21 at 19:44; Status DC Alteplase, Recombinant 5.4 ml @ 324 mls/hr 1X ONCE IV Last administered on 11/09/21at 20:20; Start 11/09/21 at 20:00; Stop 11/09/21 at 20:01; Status DC Alteplase, Recombinant 48.6 ml @ 48.6 mls/hr 1X ONCE IV Last administered on 11/09/21at 20:21; Start 11/09/21 at 20:00; Stop 11/09/21 at 20:59; Status DC Sodium Chloride 100 ml @ 100 mls/hr 1X ONCE IV Last administered on 11/09/21at 21:30; Start 11/09/21 at 20:00; Stop 11/09/21 at 20:59; Status DC Nicardipine HCl 50 mg/Sodium Chloride 250 ml @ 25 mls/hr CONT PRN PRN IV HYPERTENSION Last administered on 11/10/21at 01:36; Start 11/09/21 at 20:00; Stop 11/10/21 at 06:48; Status DC Insulin Human Regular 100 unit/ Sodium Chloride 101 ml @ 0 mls/hr 1X ONCE IV Last administered on 11/10/21at 00:24; Start 11/09/21 at 20:15; Stop 11/09/21 at 20:16; Status DC Labetalol HCl (Normodyne Iv Push) 10 mg 1X ONCE IVP Last administered on 11/09/21at 20:40; Start 11/09/21 at 20:15; Stop 11/09/21 at 20:16; Status DC Labetalol HCl (Normodyne Iv Push) 20 mg STK-MED ONCE IVP ; Start 11/09/21 at 20:05; Stop 11/09/21 at 20:05; Status DC Potassium Chloride (Klor-Con) 40 meq 1X ONCE PO ; Start 11/09/21 at 20:30; Stop 11/09/21 at 20:31; Status DC Ondansetron HCl (Zofran) 4 mg PRN Q8HRS PRN IVP NAUSEA/VOMITING Last administered on 11/09/21at 23:33; Start 11/09/21 at 20:30; Stop 11/10/21 at 06:48; Status DC Labetalol HCl (Normodyne Iv Push) 10 mg 1X ONCE IVP Last administered on 11/09/21at 18:05; Start 11/09/21 at 20:30; Stop 11/09/21 at 20:31; Status DC Insulin Human Lispro (HumaLOG) 15 units 1X ONCE SQ ; Start 11/09/21 at 21:30; Stop 11/09/21 at 21:31; Status DC Sodium Chloride 1,000 ml @ 125 mls/hr Q8H IV ; Start 11/10/21 at 00:00; Stop 11/10/21 at 09:59; Status DC Dextrose/Sodium Chloride 1,000 ml @ 125 mls/hr Q8H IV ; Start 11/10/21 at 00:00; Stop 11/10/21 at 09:59; Status DC Insulin Human Regular 100 unit/ Sodium Chloride 101 ml @ 0 mls/hr CONT PRN PRN IV PER PROTOCOL; Start 11/10/21 at 00:00; Stop 11/10/21 at 09:19; Status DC Potassium Chloride/Water 100 ml @ 100 mls/hr PRN Q1HR PRN IV SEE COMMENTS Last administered on 11/10/21at 03:41; Start 11/10/21 at 00:00 Potassium Chloride/Water 100 ml @ 100 mls/hr PRN Q1HR PRN IV SEE COMMENTS; Start 11/10/21 at 00:00 Potassium Chloride/Water 100 ml @ 100 mls/hr PRN Q1HR PRN IV SEE COMMENTS Last administered on 11/10/21at 12:45; Start 11/10/21 at 00:00 Magnesium Sulfate 100 ml @ 25 mls/hr DAILY IV Last administered on 11/11/21at 09:49; Start 11/10/21 at 09:00; Stop 11/13/21 at 08:59; Status DC Sodium Chloride 1,000 ml @ 125 mls/hr Q8H IV Last administered on 11/10/21at 00:44; Start 11/10/21 at 00:45; Stop 11/10/21 at 10:07; Status DC Dextrose/Sodium Chloride 1,000 ml @ 125 mls/hr Q8H IV Last administered on 11/10/21at 03:41; Start 11/10/21 at 03:45; Stop 11/10/21 at 09:59; Status DC Nicardipine HCl (Cardene) 50 mg STK-MED ONCE IV ; Start 11/09/21 at 21:00; Stop 11/10/21 at 04:38; Status DC Sodium Chloride (Iv Sodium Chloride 0.9% 250ml) 250 ml STK-MED ONCE .ROUTE ; Start 11/09/21 at 21:00; Stop 11/10/21 at 04:38; Status DC Sodium Chloride (Iv Sodium Chloride 0.9% 100ml) 100 ml STK-MED ONCE .ROUTE ; Start 11/09/21 at 21:00; Stop 11/10/21 at 04:38; Status DC Labetalol HCl (Normodyne Iv Push) 10 mg PRN Q10MIN PRN IVP HYPERTENSION Last administered on 11/10/21at 13:43; Start 11/10/21 at 06:45 Nicardipine HCl 50 mg/Sodium Chloride 250 ml @ 25 mls/hr CONT PRN PRN IV HYPERTENSION Last administered on 11/11/21at 03:26; Start 11/10/21 at 06:45 Acetaminophen (Tylenol) 650 mg PRN Q6HRS PRN PO MILD PAIN / TEMP > 100.3'F; Start 11/10/21 at 06:45; Status Cancel Acetaminophen (Tylenol Supp) 650 mg PRN Q6HRS PRN ND MILD PAIN / TEMP > 100.3'F; Start 11/10/21 at 06:45 Ondansetron HCl (Zofran) 4 mg PRN Q6HRS PRN IVP NAUSEA/VOMITING 1ST CHOICE Last administered on 11/10/21at 20:27; Start 11/10/21 at 06:45 Fentanyl Citrate (Fentanyl 2ml Vial) 50 mcg PRN Q2HR PRN IVP PAIN Last administered on 11/10/21at 11:07; Start 11/10/21 at 08:30 Iohexol (Omnipaque 300 Mg/ml) 75 ml 1X ONCE IV Last administered on 11/10/21at 08:56; Start 11/10/21 at 08:30; Stop 11/10/21 at 08:31; Status DC Info (CONTRAST GIVEN -- Rx MONITORING) 1 each PRN DAILY PRN MC SEE COMMENTS; Start 11/10/21 at 08:45; Stop 11/12/21 at 08:44; Status DC Amlodipine Besylate (Norvasc) 10 mg DAILY PO Last administered on 11/12/21at 08:04; Start 11/10/21 at 09:00 Atorvastatin Calcium (Lipitor) 40 mg QHS PO Last administered on 11/12/21at 22:39; Start 11/10/21 at 21:00 Clonidine HCl (Catapres) 0.1 mg TID PO Last administered on 11/12/21at 22:39; Start 11/10/21 at 09:00 Doxazosin Mesylate (Cardura) 4 mg DAILY PO Last administered on 11/12/21 08:01; Start 11/10/21 at 09:00 Amylase/Lipase/ Protease (Zenpep 10,000) 3 cap TIDWMEALS PO Last administered on 11/12/21 16:35; Start 11/10/21 at 09:00 Methocarbamol (Robaxin) 750 mg PRN TID PRN PO MUSCLE SPASMS Last administered on 11/11/21 09:44; Start 11/10/21 at 09:00 Ondansetron HCl (Zofran Odt) 4 mg TID PRN PO NAUSEA; Start 11/10/21 at 09:00 Oxycodone/ Acetaminophen (Percocet 7.5/ 325) 1 tab PRN Q6HRS PRN PO MODERATE TO SEVERE PAIN Last administered on 11/13/21 04:42; Start 11/10/21 at 09:00 Sevelamer Carbonate (Renvela) 800 mg TIDWMEALS PO Last administered on 11/12/21 16:34; Start 11/10/21 at 09:30 Carvedilol (Coreg) 25 mg BIDWMEALS PO Last administered on 11/12/21 16:35; Start 11/10/21 at 09:30 Hydralazine HCl (Apresoline) 100 mg TID PO Last administered on 11/12/21 2 2:38; Start 11/10/21 at 09:30 Isosorbide Mononitrate (Imdur) 60 mg DAILY PO Last administered on 11/12/21 08:01; Start 11/10/21 at 09:30 Pantoprazole Sodium (Protonix) 40 mg DAILYAC PO ; Start 11/10/21 at 09:30; Stop 11/10/21 at 14:29; Status DC Trazodone HCl (Desyrel) 150 mg HS PO Last administered on 11/12/21 22:35; Start 11/10/21 at 21:00 Acetaminophen (Tylenol) 650 mg PRN Q6HRS PRN PO MILD PAIN / TEMP > 100.3'F; Start 11/10/21 at 09:00 Insulin Human Lispro (HumaLOG) 0-8 UNITS TIDBFRMEAL SQ Last administered on 11/13/21 08:45; Start 11/10/21 at 11:30 Baclofen (Lioresal) 5 mg TID PRN PO MUSCLE SPASMS Last administered on 11/12/21 22:37; Start 11/10/21 at 09:30 Prochlorperazine Edisylate (Compazine) 10 mg PRN Q6HRS PRN IV NAUSEA/VOMITING, 2ND CHOICE Last administered on 11/10/21 13:12; Start 11/10/21 at 11:15 Vancomycin HCl (Vanco Per Pharmacy) 1 each PRN DAILY PRN MC SEE COMMENTS Last administered on 11/12/21 15:53; Start 11/10/21 at 11:15 Cefepime HCl (Maxipime) 1 gm Q24H IVP Last administered on 11/12/21 12:14; Start 11/10/21 at 12:00 Vancomycin HCl 1.5 gm/Sodium Chloride 500 ml @ 250 mls/hr 1X ONCE IV Last administered on 11/10/21 13:35; Start 11/10/21 at 13:00; Stop 11/10/21 at 14:59; Status DC Potassium Chloride/Water 100 ml @ 100 mls/hr Q1H IV Last administered on 11/10/21 18:00; Start 11/10/21 at 13:00; Stop 11/10/21 at 18:59; Status DC Pantoprazole Sodium (PROTONIX VIAL for IV PUSH) 40 mg 1X ONCE IVP Last administered on 11/10/21at 13:19; Start 11/10/21 at 13:30; Stop 11/10/21 at 13:31; Status DC Hydralazine HCl (Apresoline Inj) 20 mg PRN Q4HRS PRN IVP ELEVATED BP, SEE COMMENTS Last administered on 11/10/21at 18:52; Start 11/10/21 at 14:30 Pantoprazole Sodium (PROTONIX VIAL for IV PUSH) 40 mg DAILYAC IVP ; Start 11/11/21 at 07:30; Stop 11/10/21 at 14:32; Status DC Pantoprazole Sodium (PROTONIX VIAL for IV PUSH) 40 mg BIDAC IVP Last administered on 11/12/21 16:34; Start 11/10/21 at 16:30; Stop 11/13/21 at 10:05; Status DC Vancomycin HCl (Vancomycin Random Level) 1 each 1X ONCE MC Last administered on 4/24/22at 05:00; Start 11/12/21 at 05:00; Stop 11/12/21 at 05:01; Status DC Sodium Chloride 1,000 ml @ 1,000 mls/hr Q1H PRN IV hypotension; Start 11/10/21 at 17:00; Stop 11/10/21 at 22:59; Status DC Albumin Human 200 ml @ 200 mls/hr 1X PRN PRN IV Hypotension; Start 11/10/21 at 17:00; Stop 11/10/21 at 22:59; Status DC Sodium Chloride 1,000 ml @ 400 mls/hr Q2H30M PRN IV PATENCY; Start 11/10/21 at 17:00; Stop 11/11/21 at 04:59; Status DC Info (PHARMACY MONITORING -- do not chart) 1 each PRN DAILY PRN MC SEE COMMENTS; Start 11/10/21 at 17:00; Stop 11/10/21 at 16:51; Status DC Info (PHARMACY MONITORING -- do not chart) 1 each PRN DAILY PRN MC SEE COMMENTS; Start 11/10/21 at 17:00; Status Cancel Insulin Glargine (Lantus Syringe) 6 unit DAILY10 SQ Last administered on 11/12/21at 10:00; Start 11/11/21 at 10:00; Stop 11/13/21 at 08:34; Status DC Heparin Sodium (Porcine) (Heparin Sodium) 5,000 unit Q8HRS SQ Last administered on 11/13/21at 04:51; Start 11/11/21 at 14:00 Epoetin Jose (PROCRIT for DIALYSIS PTS) 10,000 unit 3X/WEEK ONCE SQ ; Start 11/13/21 at 09:00; Stop 11/13/21 at 09:01; Status DC Vancomycin HCl 750 mg/Sodium Chloride 250 ml @ 250 mls/hr 1X ONCE IV Last administered on 11/12/21at 11:14; Start 11/12/21 at 10:00; Stop 11/12/21 at 10:59; Status DC Vancomycin HCl 500 mg/Sodium Chloride 100 ml @ 100 mls/hr QMWF IV ; Start 11/13/21 at 16:00 Lactobacillus Rhamnosus (Culturelle) 1 cap BID PO Last administered on 11/12/21at 22:40; Start 11/12/21 at 21:00 Aspirin (Ecotrin) 81 mg DAILYWBKFT PO Last administered on 11/12/21at 18:10; Start 11/12/21 at 17:45 Clopidogrel Bisulfate (Plavix) 75 mg DAILYWBKFT PO Last administered on 11/12/21at 18:10; Start 11/12/21 at 17:45 Sodium Chloride 1,000 ml @ 1,000 mls/hr Q1H PRN IV hypotension; Start 11/13/21 at 08:00; Stop 11/13/21 at 13:59 Sodium Chloride 1,000 ml @ 400 mls/hr Q2H30M PRN IV PATENCY; Start 11/13/21 at 08:00; Stop 11/13/21 at 19:59 Info (PHARMACY MONITORING -- do not chart) 1 each PRN DAILY PRN MC SEE COMMENTS; Start 11/13/21 at 08:00 Insulin Glargine (Lantus Syringe) 4 unit DAILY10 SQ ; Start 11/13/21 at 10:00 Pantoprazole Sodium (Protonix) 40 mg DAILYAC PO ; Start 11/14/21 at 07:30 Active Scripts Active Ondansetron Odt (Ondansetron) 4 Mg Tab.rapdis 1 Tab PO PRN Q6-8HRS PRN Isosorbide Mononitrate Er (Isosorbide Mononitrate) 30 Mg Tab.er.24h 1 Tab PO DAILY 30 Days Clonidine Hcl 0.1 Mg Tablet 0.1 Mg PO TID 30 Days Admelog (Insulin Lispro) 100 Unit/1 Ml Vial 0 Units SQ TIDBFRMEAL 30 Days Use sliding scale at home. Amlodipine Besylate 10 Mg Tablet 10 Mg PO DAILY 30 Days Carvedilol 25 Mg Tablet 25 Mg PO BIDWMEALS 30 Days Atorvastatin Calcium 40 Mg Tablet 40 Mg PO QHS 30 Days Lantus Solostar (Insulin Glargine,Hum.rec.anlog) 100 Unit/1 Ml Insuln.pen 12 Unit SQ DAILY Percocet 7.5-325 Mg Tablet (Oxycodone/Acetaminophen) 1 Each Tablet 1 Tab PO PRN Q6HRS PRN Methocarbamol 750 Mg Tablet 750 Mg PO PRN TID PRN 10 Days Baclofen 10 Mg Tablet 5 Mg PO TID PRN Renvela (Sevelamer Carbonate) 800 Mg Tablet 800 Mg PO TIDWMEALS 30 Days Reported Isosorbide Dinitrate 30 Mg Tablet 2 Tab PO DAILY 30 Days Trazodone Hcl 150 Mg Tablet 150 Mg PO HS Fish Oil 1,000 Mg Softgel (Armona-3 Fatty Acids/Fish Oil) 1 Each Capsule 1 Cap PO DAILY 30 Days Omeprazole 40 Mg Capsule.dr 1 Cap PO DAILY Zenpep Dr 10,000 Units Capsule (Lipase/Protease/Amylase) 1 Each Capsule.dr 3 Cap PO TIDWMEALS Doxazosin Mesylate 4 Mg Tablet 1 Tab PO DAILY Hydralazine Hcl 100 Mg Tablet 1 Tab PO TID Aspir 81 (Aspirin) 81 Mg Tablet.dr 1 Tab PO DAILY Vitals/I & O Vital Sign - Last 24 Hours 11/12/21 11/12/21 11/12/21 11/12/21 10:34 14:02 14:02 15:00 Temp 99.5 98.1 99.5 98.1 Pulse 68 68 68 77 Resp 16 16 B/P (MAP) 161/68 (99) 161/68 161/68 171/75 (107) Pulse Ox 96 97 O2 Delivery Room Air Room Air 11/12/21 11/12/21 11/12/21 11/12/21 16:35 16:35 19:09 20:00 Temp 97.6 97.6 Pulse 77 63 Resp 18 18 B/P (MAP) 171/75 161/69 (99) Pulse Ox 97 O2 Delivery Room Air Room Air Nasal Cannula O2 Flow Rate 3.0 11/12/21 11/12/21 11/12/21 11/13/21 22:38 22:39 23:04 02:45 Temp 97.9 98.9 97.9 98.9 Pulse 63 63 60 64 Resp 16 16 B/P (MAP) 161/69 161/69 167/73 (104) 168/72 (104) Pulse Ox 99 100 O2 Delivery Room Air Room Air 11/13/21 11/13/21 07:00 08:00 B/P (MAP) 160/72 (101) O2 Delivery Room Air Intake and Output 11/12/21 11/12/21 11/13/21 15:00 23:00 07:00 Intake Total 300 ml 1780 ml 0 ml Output Total 50 ml Balance 300 ml 1730 ml 0 ml Justicifation of Admission Dx: Justifications for Admission: Justification of Admission Dx: N/A AKIN ALEXANDER MD Nov 13, 2021 10:15
[2021-11-13] MEDS: VANCOMYCIN PER PHARMACY MC PRN (10:52)
--- NOTE | 2021-11-13 10:53 | NUR ---
Pharmacy Vancomycin Dosing Note S: Consulted to monitor and dose vancomycin started 11/10/21. O: ADAIR PINEDA is a 56 year old M with , FEVER and ALTERED MENTAL STATUS . Other Antibiotics: CEFEPIME 1G IV Q24HRS LABS: Last BUN: 27 Last Creatinine: 6.7 Creatinine Clearance: ESRD on HD MWF mL/min Last WBC: 9.4 Last Procalcitonin: Tmax (past 24 hours): 99.9 Microbiology: Blood: no growth I/O: N/A Drug Levels: Last Random level: 12.9 on 11/12/21 at 0600 Last dose given 11/12/21 at 1114 Vancomycin Dosing: Dosing Weight: Actual Target Trough: 10-20 A: Based on: P: 1. Vancomycin 500 mg IV qMWF after HD session 2. Pharmacy will continue to monitor, follow and adjust therapy as needed. CELINE MAGALLANES RPH, 11/13/21 [id number]
--- NOTE | 2021-11-13 13:40 | PDOC ---
Infectious Disease Note Subjective Subjective Patient feels better today No trouble with speech Denies any neurologic weakness ROS ROS no n/v/d/ Vital Sign Vital Signs Vital Signs Date Time Temp Pulse Resp B/P (MAP) Pulse Ox O2 Delivery O2 Flow Rate FiO2 11/13/21 10:55 16 96 Room Air 11/13/21 07:00 160/72 (101) 11/13/21 02:45 98.9 64 98.9 11/12/21 20:00 3.0 Physical Exam PHYSICAL EXAM GENERAL: Alert oriented x3 male in no acute distress looks better HEENT: Both pupils are round and reacting. No conjunctival lesion. No oral lesion. NECK: Supple, no JVP, LUNGS: Clear. Chest wall costochondral pain on the left chest site HEART: S1, S2, regular. ABDOMEN: Soft, nontender, no organomegaly. EXTREMITIES: No edema, cyanosis. SKIN: No gen rash NEUROLOGIC: Alert oriented x3 male in no acute distress moves all 4 extremities. RT IJ in place Labs Lab Laboratory Tests Test 11/12/21 16:21 11/12/21 20:50 11/12/21 23:10 11/13/21 00:13 Glucose (Fingerstick) 104 mg/dL (70-99) 48 mg/dL (70-99) 97 mg/dL (70-99) 99 mg/dL (70-99) Test 11/13/21 05:00 11/13/21 08:37 White Blood Count 9.4 x10^3/uL (4.0-11.0) Red Blood Count 3.26 x10^6/uL (4.30-5.70) Hemoglobin 8.9 g/dL (13.0-17.5) Hematocrit 27.4 % (39.0-53.0) Mean Corpuscular Volume 84 fL (79-100) Mean Corpuscular Hemoglobin 28 pg (25-35) Mean Corpuscular Hemoglobin Concent 33 g/dL (31-37) Red Cell Distribution Width 16.2 % (11.5-14.5) Platelet Count 252 x10^3/uL (140-400) Neutrophils (%) (Auto) 64 % (31-73) Lymphocytes (%) (Auto) 25 % (24-48) Monocytes (%) (Auto) 7 % (0-9) Eosinophils (%) (Auto) 4 % (0-3) Basophils (%) (Auto) 1 % (0-3) Neutrophils # (Auto) 6.0 x10^3/uL (1.8-7.7) Lymphocytes # (Auto) 2.4 x10^3/uL (1.0-4.8) Monocytes # (Auto) 0.7 x10^3/uL (0.0-1.1) Eosinophils # (Auto) 0.3 x10^3/uL (0.0-0.7) Basophils # (Auto) 0.1 x10^3/uL (0.0-0.2) Sodium Level 133 mmol/L (136-145) Potassium Level 3.8 mmol/L (3.5-5.1) Chloride Level 98 mmol/L (98-107) Carbon Dioxide Level 26 mmol/L (21-32) Anion Gap 9 (6-14) Blood Urea Nitrogen 27 mg/dL (8-26) Creatinine 6.7 mg/dL (0.7-1.3) Estimated GFR (Cockcroft-Gault) 10.5 Glucose Level 182 mg/dL (70-99) Calcium Level 7.5 mg/dL (8.5-10.1) Phosphorus Level 3.3 mg/dL (2.6-4.7) Albumin 1.7 g/dL (3.4-5.0) Glucose (Fingerstick) 177 mg/dL (70-99) Micro Microbiology 11/10/21 Blood Culture - Preliminary, Resulted NO GROWTH AFTER 3 DAYS Objective Assessment 1. Fever.Could be from aspiration,BC negative so far 2. Encephalopathy, Aphasia due to acute stroke. 3. Hypertensive crisis. 4. Diabetes. 5. End-stage renal disease, on hemodialysis. 6. Hypertensive urgency 7. Pancreatitis on KUB Plan Plan of Care Cont vancomycin and cefepime renal dosing F/U Cultures Monitor labs Supportive care JUDIE BANUELOS MD Nov 13, 2021 13:39
[2021-11-13] MEDS: ASPIRIN ENTERIC COATED 81 MG TABLET.DR. PO SCH (14:47)
[2021-11-13] MEDS: CLOPIDOGREL BISULFATE 75 MG TABLET PO SCH (14:47)
[2021-11-13] MEDS: LACTOBACILLUS RHAMNOSUS GG 1 CAPSULE. PO SCH ×2 (14:51→21:23)
[2021-11-13 15:00] VITALS: BP 138/53
[2021-11-13] MEDS: ISOSORBIDE MONONITRATE ER 30 MG TAB.ER.24H PO SCH (15:04)
[2021-11-13] MEDS: DOXAZOSIN MESYLATE 4 MG TABLET. PO SCH (15:06)
[2021-11-13] MEDS: CEFEPIME HCL IV Push 1 GM VIAL. IVP SCH (15:07)
[2021-11-13] MEDS: BACLOFEN 10 MG TABLET. PO PRN (15:09)
[2021-11-13] MEDS: fentaNYL PF VIAL 100 MCG/2 ML VIAL IVP PRN ×2 (15:45→21:36)
[2021-11-13] MEDS ORDERED: VANCOMYCIN 500 MG in IV NORMAL SALINE 100ML 100 ML IV SCH (16:00)
--- NOTE | 2021-11-13 17:14 | CARD ---
MR#: [id number] Date of Study: 11/13/2021 Ordering Physician: AKIN ALEXANDER, Referring Physician: AKIN ALEXANDER, Tech: Awa Richards [facility] APPROVED REPORT EXAM: Two-dimensional and M-mode echocardiogram with Doppler and color Doppler. Other Information Quality : GoodHR: 53bpm Rhythm : NSR INDICATION CVA/TIA Chest Pain Echo Enhancing Agent Indication: Rule Out Septal Defect Agent/Amount Used: Agitated Saline 7mL RISK FACTORS Hypertension 2D DIMENSIONS RVDd3.9 (2.9-3.5cm)Left Atrium(2D)4.8 (1.6-4.0cm) IVSd1.6 (0.7-1.1cm)Aortic Root(2D)3.8 (2.0-3.7cm) LVDd4.8 (3.9-5.9cm)LVOT Diameter2.4 (1.8-2.4cm) PWd1.2 (0.7-1.1cm)LVDs2.8 (2.5-4.0cm) FS (%) 42.5 %SV78.8 ml LVEF(%)73.5 (>50%) Aortic Valve AoV Peak Leland.132.7cm/sAoV VTI30.1cm AO Peak GR.7.0mmHgLVOT Peak Leland.105.6cm/s AO Mean GR.3mmHgAVA (VMAX)3.66cm2 Mitral Valve MV E Akytsidy306.8cm/sMV DECEL [id number] MV A Onmuxguo09.3cm/sE/A Ratio1.6 Pulmonary Valve PV Peak Onlijmfv688.1cm/s Tricuspid Valve TR P. Fyjahynu160ro/sTR Peak Gr.34mmHg LEFT VENTRICLE The left ventricle is normal size. There is mild concentric left ventricular hypertrophy. Estimated e jection fraction 60%. The left ventricular systolic function is normal. The ejection fraction is 60-6 5%. There is normal LV segmental wall motion. The left ventricular diastolic function and filling is normal for age. RIGHT VENTRICLE The right ventricle is normal size. There is normal right ventricular wall thickness. The right ventr icular systolic function is normal. ATRIA The left atrium is mildly dilated. The right atrium size is normal. Positive bubble study. AORTIC VALVE The aortic valve is normal in structure and function. Doppler and Color Flow revealed no significant aortic regurgitation. There is no significant aortic valvular stenosis. MITRAL VALVE The mitral valve is normal in structure and function. There is no evidence of mitral valve prolapse. There is no mitral valve stenosis. Doppler and Color-flow revealed mild mitral regurgitation. TRICUSPID VALVE The tricuspid valve is normal in structure and function. Doppler and Color Flow revealed trace tricus pid regurgitation. Estimated PAP 38-40 mmHg. There is no tricuspid valve stenosis. PULMONIC VALVE The pulmonary valve is normal in structure and function. Doppler and Color Flow revealed trace pulmon ic valvular regurgitation. GREAT VESSELS The aortic root is mildly enlarged. The ascending aorta is Mildly dilated. The IVC is normal in size and collapses >50% with inspiration. PERICARDIAL EFFUSION There is no evidence of significant pericardial effusion. Critical Notification Critical Value: No <Conclusion> The left ventricular systolic function is normal. The ejection fraction is 60-65%. There is normal LV segmental wall motion. Mild mitral regurgitation. Trace tricuspid regurgitation. Estimated PAP 38-40 mmHg. There is no evidence of significant pericardial effusion. Bubble study positive for PFO/ASD. Signed by : Ted Dickey, Electronically Approved : 11/13/2021 17:14:28
--- NOTE | 2021-11-13 18:33 | PDOC ---
PROGRESS NOTES Date of Service DATE: 11/13/21 TIME: 18:32 Subjective Subjective Patient seen and examined Objective Objective Vital Signs Date Time Temp Pulse Resp B/P (MAP) Pulse Ox O2 Delivery O2 Flow Rate FiO2 11/13/21 15:45 20 96 Room Air 11/13/21 15:08 66 185/70 11/13/21 15:00 98.5 98.5 11/12/21 20:00 3.0 Intake and Output 11/13/21 07:00 Intake Total 2080 ml Output Total 50 ml Balance 2030 ml Intake Oral 2080 ml Output Urine Total 50 ml Physical Exam Abdomen: Normal bowel sounds Heart: Regular rate General: mild distress Lungs: Other (Slightly decreased breath sounds) Assessment Assessment Problems Medical Problems: (1) Acute hypokalemia Status: Acute (2) Aphasia due to acute stroke Status: Acute (3) Hyperglycemia due to type 2 diabetes mellitus Status: Acute (4) Hypertensive urgency Status: Acute 1. Acute Stroke with aphasia: also with element of metabolic encephalopathy. S/P tPA on admission. Patient continues to improve. He is followed by the neurology service. 2. HTN urgency: Blood pressure continues to improve. 3. Uncontrolled DM2: improved 4. Hyponatremia. Treated. 5. Hypokalemia. Treated. 6. ESRD and HD per nephrology 7. Fever with possible sepsis: ID following 8. CAD s/p PCI/stent to the LCx; [facility] 01/09 showed patent LCx stent and no lesions needing intervention. Follows with Dr. Jahaira FOSTER. Clinically stable. Mild localized chest discomfort today which is increased with palpation. Patient attributes it to a fall last week. 9. Chronic diastolic CHF: compensated 10. HLP 11. Possible gastric erosion: coffee ground stain to prior emesis. 12. Nausea and vomiting: antiemetic received. Resolved. Comment Review of Relevant I have reviewed the following items donell (where applicable) has been applied. Labs Laboratory Tests Test 11/11/21 20:45 11/12/21 06:15 11/12/21 07:20 11/12/21 11:34 Glucose (Fingerstick) 80 mg/dL (70-99) 134 mg/dL (70-99) 305 mg/dL (70-99) White Blood Count 12.7 x10^3/uL (4.0-11.0) Red Blood Count 3.45 x10^6/uL (4.30-5.70) Hemoglobin 9.4 g/dL (13.0-17.5) Hematocrit 28.8 % (39.0-53.0) Mean Corpuscular Volume 83 fL (79-100) Mean Corpuscular Hemoglobin 27 pg (25-35) Mean Corpuscular Hemoglobin Concent 33 g/dL (31-37) Red Cell Distribution Width 16.4 % (11.5-14.5) Platelet Count 261 x10^3/uL (140-400) Neutrophils (%) (Auto) 67 % (31-73) Lymphocytes (%) (Auto) 24 % (24-48) Monocytes (%) (Auto) 7 % (0-9) Eosinophils (%) (Auto) 2 % (0-3) Basophils (%) (Auto) 1 % (0-3) Neutrophils # (Auto) 8.4 x10^3/uL (1.8-7.7) Lymphocytes # (Auto) 3.1 x10^3/uL (1.0-4.8) Monocytes # (Auto) 0.8 x10^3/uL (0.0-1.1) Eosinophils # (Auto) 0.3 x10^3/uL (0.0-0.7) Basophils # (Auto) 0.1 x10^3/uL (0.0-0.2) Sodium Level 135 mmol/L (136-145) Potassium Level 3.7 mmol/L (3.5-5.1) Chloride Level 100 mmol/L (98-107) Carbon Dioxide Level 27 mmol/L (21-32) Anion Gap 8 (6-14) Blood Urea Nitrogen 19 mg/dL (8-26) Creatinine 5.5 mg/dL (0.7-1.3) Estimated GFR (Cockcroft-Gault) 13.1 BUN/Creatinine Ratio 3 (6-20) Glucose Level 126 mg/dL (70-99) Calcium Level 7.9 mg/dL (8.5-10.1) Magnesium Level 2.6 mg/dL (1.8-2.4) Total Bilirubin 0.4 mg/dL (0.2-1.0) Aspartate Amino Transf (AST/SGOT) 14 U/L (15-37) Alanine Aminotransferase (ALT/SGPT) 13 U/L (16-63) Alkaline Phosphatase 93 U/L (46-116) Total Protein 5.2 g/dL (6.4-8.2) Albumin 1.8 g/dL (3.4-5.0) Albumin/Globulin Ratio 0.5 (1.0-1.7) Random Vancomycin Level 12.9 mcg/mL Test 11/12/21 16:21 11/12/21 20:50 11/12/21 23:10 11/13/21 00:13 Glucose (Fingerstick) 104 mg/dL (70-99) 48 mg/dL (70-99) 97 mg/dL (70-99) 99 mg/dL (70-99) Test 11/13/21 05:00 11/13/21 08:37 11/13/21 16:18 White Blood Count 9.4 x10^3/uL (4.0-11.0) Red Blood Count 3.26 x10^6/uL (4.30-5.70) Hemoglobin 8.9 g/dL (13.0-17.5) Hematocrit 27.4 % (39.0-53.0) Mean Corpuscular Volume 84 fL (79-100) Mean Corpuscular Hemoglobin 28 pg (25-35) Mean Corpuscular Hemoglobin Concent 33 g/dL (31-37) Red Cell Distribution Width 16.2 % (11.5-14.5) Platelet Count 252 x10^3/uL (140-400) Neutrophils (%) (Auto) 64 % (31-73) Lymphocytes (%) (Auto) 25 % (24-48) Monocytes (%) (Auto) 7 % (0-9) Eosinophils (%) (Auto) 4 % (0-3) Basophils (%) (Auto) 1 % (0-3) Neutrophils # (Auto) 6.0 x10^3/uL (1.8-7.7) Lymphocytes # (Auto) 2.4 x10^3/uL (1.0-4.8) Monocytes # (Auto) 0.7 x10^3/uL (0.0-1.1) Eosinophils # (Auto) 0.3 x10^3/uL (0.0-0.7) Basophils # (Auto) 0.1 x10^3/uL (0.0-0.2) Sodium Level 133 mmol/L (136-145) Potassium Level 3.8 mmol/L (3.5-5.1) Chloride Level 98 mmol/L (98-107) Carbon Dioxide Level 26 mmol/L (21-32) Anion Gap 9 (6-14) Blood Urea Nitrogen 27 mg/dL (8-26) Creatinine 6.7 mg/dL (0.7-1.3) Estimated GFR (Cockcroft-Gault) 10.5 Glucose Level 182 mg/dL (70-99) Calcium Level 7.5 mg/dL (8.5-10.1) Phosphorus Level 3.3 mg/dL (2.6-4.7) Albumin 1.7 g/dL (3.4-5.0) Glucose (Fingerstick) 177 mg/dL (70-99) 211 mg/dL (70-99) Laboratory Tests Test 11/12/21 20:50 11/12/21 23:10 11/13/21 00:13 11/13/21 05:00 Glucose (Fingerstick) 48 mg/dL (70-99) 97 mg/dL (70-99) 99 mg/dL (70-99) White Blood Count 9.4 x10^3/uL (4.0-11.0) Red Blood Count 3.26 x10^6/uL (4.30-5.70) Hemoglobin 8.9 g/dL (13.0-17.5) Hematocrit 27.4 % (39.0-53.0) Mean Corpuscular Volume 84 fL (79-100) Mean Corpuscular Hemoglobin 28 pg (25-35) Mean Corpuscular Hemoglobin Concent 33 g/dL (31-37) Red Cell Distribution Width 16.2 % (11.5-14.5) Platelet Count 252 x10^3/uL (140-400) Neutrophils (%) (Auto) 64 % (31-73) Lymphocytes (%) (Auto) 25 % (24-48) Monocytes (%) (Auto) 7 % (0-9) Eosinophils (%) (Auto) 4 % (0-3) Basophils (%) (Auto) 1 % (0-3) Neutrophils # (Auto) 6.0 x10^3/uL (1.8-7.7) Lymphocytes # (Auto) 2.4 x10^3/uL (1.0-4.8) Monocytes # (Auto) 0.7 x10^3/uL (0.0-1.1) Eosinophils # (Auto) 0.3 x10^3/uL (0.0-0.7) Basophils # (Auto) 0.1 x10^3/uL (0.0-0.2) Sodium Level 133 mmol/L (136-145) Potassium Level 3.8 mmol/L (3.5-5.1) Chloride Level 98 mmol/L (98-107) Carbon Dioxide Level 26 mmol/L (21-32) Anion Gap 9 (6-14) Blood Urea Nitrogen 27 mg/dL (8-26) Creatinine 6.7 mg/dL (0.7-1.3) Estimated GFR (Cockcroft-Gault) 10.5 Glucose Level 182 mg/dL (70-99) Calcium Level 7.5 mg/dL (8.5-10.1) Phosphorus Level 3.3 mg/dL (2.6-4.7) Albumin 1.7 g/dL (3.4-5.0) Test 11/13/21 08:37 11/13/21 16:18 Glucose (Fingerstick) 177 mg/dL (70-99) 211 mg/dL (70-99) Microbiology 11/10/21 Blood Culture - Preliminary, Resulted NO GROWTH AFTER 3 DAYS Medications Current Medications Iohexol (Omnipaque 350 Mg/ml) 75 ml 1X ONCE IV ; Start 11/09/21 at 19:00; Stop 11/09/21 at 19:01; Status DC Info (CONTRAST GIVEN -- Rx MONITORING) 1 each PRN DAILY PRN MC SEE COMMENTS; Start 11/09/21 at 19:00; Stop 11/10/21 at 15:04; Status DC Sodium Chloride 250 ml @ 500 mls/hr 1X ONCE IV ; Start 11/09/21 at 19:15; Stop 11/09/21 at 19:44; Status DC Alteplase, Recombinant 5.4 ml @ 324 mls/hr 1X ONCE IV Last administered on 11/09/21at 20:20; Start 11/09/21 at 20:00; Stop 11/09/21 at 20:01; Status DC Alteplase, Recombinant 48.6 ml @ 48.6 mls/hr 1X ONCE IV Last administered on 11/09/21at 20:21; Start 11/09/21 at 20:00; Stop 11/09/21 at 20:59; Status DC Sodium Chloride 100 ml @ 100 mls/hr 1X ONCE IV Last administered on 11/09/21at 21:30; Start 11/09/21 at 20:00; Stop 11/09/21 at 20:59; Status DC Nicardipine HCl 50 mg/Sodium Chloride 250 ml @ 25 mls/hr CONT PRN PRN IV HYPERTENSION Last administered on 11/10/21at 01:36; Start 11/09/21 at 20:00; Stop 11/10/21 at 06:48; Status DC Insulin Human Regular 100 unit/ Sodium Chloride 101 ml @ 0 mls/hr 1X ONCE IV Last administered on 11/10/21at 00:24; Start 11/09/21 at 20:15; Stop 11/09/21 at 20:16; Status DC Labetalol HCl (Normodyne Iv Push) 10 mg 1X ONCE IVP Last administered on 11/09/21at 20:40; Start 11/09/21 at 20:15; Stop 11/09/21 at 20:16; Status DC Labetalol HCl (Normodyne Iv Push) 20 mg STK-MED ONCE IVP ; Start 11/09/21 at 20:05; Stop 11/09/21 at 20:05; Status DC Potassium Chloride (Klor-Con) 40 meq 1X ONCE PO ; Start 11/09/21 at 20:30; Stop 11/09/21 at 20:31; Status DC Ondansetron HCl (Zofran) 4 mg PRN Q8HRS PRN IVP NAUSEA/VOMITING Last administered on 11/09/21at 23:33; Start 11/09/21 at 20:30; Stop 11/10/21 at 06:48; Status DC Labetalol HCl (Normodyne Iv Push) 10 mg 1X ONCE IVP Last administered on 11/09/21at 18:05; Start 11/09/21 at 20:30; Stop 11/09/21 at 20:31; Status DC Insulin Human Lispro (HumaLOG) 15 units 1X ONCE SQ ; Start 11/09/21 at 21:30; Stop 11/09/21 at 21:31; Status DC Sodium Chloride 1,000 ml @ 125 mls/hr Q8H IV ; Start 11/10/21 at 00:00; Stop 11/10/21 at 09:59; Status DC Dextrose/Sodium Chloride 1,000 ml @ 125 mls/hr Q8H IV ; Start 11/10/21 at 00:00; Stop 11/10/21 at 09:59; Status DC Insulin Human Regular 100 unit/ Sodium Chloride 101 ml @ 0 mls/hr CONT PRN PRN IV PER PROTOCOL; Start 11/10/21 at 00:00; Stop 11/10/21 at 09:19; Status DC Potassium Chloride/Water 100 ml @ 100 mls/hr PRN Q1HR PRN IV SEE COMMENTS Last administered on 11/10/21at 03:41; Start 11/10/21 at 00:00 Potassium Chloride/Water 100 ml @ 100 mls/hr PRN Q1HR PRN IV SEE COMMENTS; Start 11/10/21 at 00:00 Potassium Chloride/Water 100 ml @ 100 mls/hr PRN Q1HR PRN IV SEE COMMENTS Last administered on 11/10/21at 12:45; Start 11/10/21 at 00:00 Magnesium Sulfate 100 ml @ 25 mls/hr DAILY IV Last administered on 11/11/21at 09:49; Start 11/10/21 at 09:00; Stop 11/13/21 at 08:59; Status DC Sodium Chloride 1,000 ml @ 125 mls/hr Q8H IV Last administered on 11/10/21at 00:44; Start 11/10/21 at 00:45; Stop 11/10/21 at 10:07; Status DC Dextrose/Sodium Chloride 1,000 ml @ 125 mls/hr Q8H IV Last administered on 11/10/21at 03:41; Start 11/10/21 at 03:45; Stop 11/10/21 at 09:59; Status DC Nicardipine HCl (Cardene) 50 mg STK-MED ONCE IV ; Start 11/09/21 at 21:00; Stop 11/10/21 at 04:38; Status DC Sodium Chloride (Iv Sodium Chloride 0.9% 250ml) 250 ml STK-MED ONCE .ROUTE ; Start 11/09/21 at 21:00; Stop 11/10/21 at 04:38; Status DC Sodium Chloride (Iv Sodium Chloride 0.9% 100ml) 100 ml STK-MED ONCE .ROUTE ; Start 11/09/21 at 21:00; Stop 11/10/21 at 04:38; Status DC Labetalol HCl (Normodyne Iv Push) 10 mg PRN Q10MIN PRN IVP HYPERTENSION Last administered on 11/10/21at 13:43; Start 11/10/21 at 06:45 Nicardipine HCl 50 mg/Sodium Chloride 250 ml @ 25 mls/hr CONT PRN PRN IV HYPERTENSION Last administered on 11/11/21at 03:26; Start 11/10/21 at 06:45 Acetaminophen (Tylenol) 650 mg PRN Q6HRS PRN PO MILD PAIN / TEMP > 100.3'F; Start 11/10/21 at 06:45; Status Cancel Acetaminophen (Tylenol Supp) 650 mg PRN Q6HRS PRN DE MILD PAIN / TEMP > 100.3'F; Start 11/10/21 at 06:45 Ondansetron HCl (Zofran) 4 mg PRN Q6HRS PRN IVP NAUSEA/VOMITING 1ST CHOICE Last administered on 11/10/21at 20:27; Start 11/10/21 at 06:45 Fentanyl Citrate (Fentanyl 2ml Vial) 50 mcg PRN Q2HR PRN IVP PAIN Last administered on 11/13/21at 15:45; Start 11/10/21 at 08:30 Iohexol (Omnipaque 300 Mg/ml) 75 ml 1X ONCE IV Last administered on 11/10/21at 08:56; Start 11/10/21 at 08:30; Stop 11/10/21 at 08:31; Status DC Info (CONTRAST GIVEN -- Rx MONITORING) 1 each PRN DAILY PRN MC SEE COMMENTS; Start 11/10/21 at 08:45; Stop 11/12/21 at 08:44; Status DC Amlodipine Besylate (Norvasc) 10 mg DAILY PO Last administered on 11/13/21at 15:05; Start 11/10/21 at 09:00 Atorvastatin Calcium (Lipitor) 40 mg QHS PO Last administered on 11/12/21at 22:39; Start 11/10/21 at 21:00 Clonidine HCl (Catapres) 0.1 mg TID PO Last administered on 11/13/21 15:03; Start 11/10/21 at 09:00 Doxazosin Mesylate (Cardura) 4 mg DAILY PO Last administered on 11/13/21 15:06; Start 11/10/21 at 09:00 Amylase/Lipase/ Protease (Zenpep 10,000) 3 cap TIDWMEALS PO Last administered on 11/12/21 16:35; Start 11/10/21 at 09:00 Methocarbamol (Robaxin) 750 mg PRN TID PRN PO MUSCLE SPASMS Last administered on 11/11/21 09:44; Start 11/10/21 at 09:00 Ondansetron HCl (Zofran Odt) 4 mg TID PRN PO NAUSEA; Start 11/10/21 at 09:00 Oxycodone/ Acetaminophen (Percocet 7.5/ 325) 1 tab PRN Q6HRS PRN PO MODERATE TO SEVERE PAIN Last administered on 11/13/21 10:55; Start 11/10/21 at 09:00 Sevelamer Carbonate (Renvela) 800 mg TIDWMEALS PO Last administered on 11/12/21 16:34; Start 11/10/21 at 09:30 Carvedilol (Coreg) 25 mg BIDWMEALS PO Last administered on 11/12/21 16:35; Start 11/10/21 at 09:30 Hydralazine HCl (Apresoline) 100 mg TID PO Last administered on 11/13/21 15:08; Start 11/10/21 at 09:30 Isosorbide Mononitrate (Imdur) 60 mg DAILY PO Last administered on 11/13/21 15:04; Start 11/10/21 at 09:30 Pantoprazole Sodium (Protonix) 40 mg DAILYAC PO ; Start 11/10/21 at 09:30; Stop 11/10/21 at 14:29; Status DC Trazodone HCl (Desyrel) 150 mg HS PO Last administered on 11/12/21 22:35; Start 11/10/21 at 21:00 Acetaminophen (Tylenol) 650 mg PRN Q6HRS PRN PO MILD PAIN / TEMP > 100.3'F; Start 11/10/21 at 09:00 Insulin Human Lispro (HumaLOG) 0-8 UNITS TIDBFRMEAL SQ Last administered on 11/13/21 08:45; Start 11/10/21 at 11:30 Baclofen (Lioresal) 5 mg TID PRN PO MUSCLE SPASMS Last administered on 11/13/21 15:09; Start 11/10/21 at 09:30 Prochlorperazine Edisylate (Compazine) 10 mg PRN Q6HRS PRN IV NAUSEA/VOMITING, 2ND CHOICE Last administered on 11/10/21 13:12; Start 11/10/21 at 11:15 Vancomycin HCl (Vanco Per Pharmacy) 1 each PRN DAILY PRN MC SEE COMMENTS Last administered on 11/13/21 10:52; Start 11/10/21 at 11:15 Cefepime HCl (Maxipime) 1 gm Q24H IVP Last administered on 11/13/21 15:07; Start 11/10/21 at 12:00 Vancomycin HCl 1.5 gm/Sodium Chloride 500 ml @ 250 mls/hr 1X ONCE IV Last administered on 11/10/21 13:35; Start 11/10/21 at 13:00; Stop 11/10/21 at 14:59; Status DC Potassium Chloride/Water 100 ml @ 100 mls/hr Q1H IV Last administered on 11/10/21 18:00; Start 11/10/21 at 13:00; Stop 11/10/21 at 18:59; Status DC Pantoprazole Sodium (PROTONIX VIAL for IV PUSH) 40 mg 1X ONCE IVP Last admi nistered on 11/10/21at 13:19; Start 11/10/21 at 13:30; Stop 11/10/21 at 13:31; Status DC Hydralazine HCl (Apresoline Inj) 20 mg PRN Q4HRS PRN IVP ELEVATED BP, SEE COMMENTS Last administered on 11/10/21at 18:52; Start 11/10/21 at 14:30 Pantoprazole Sodium (PROTONIX VIAL for IV PUSH) 40 mg DAILYAC IVP ; Start 11/11/21 at 07:30; Stop 11/10/21 at 14:32; Status DC Pantoprazole Sodium (PROTONIX VIAL for IV PUSH) 40 mg BIDAC IVP Last administered on 11/12/21at 16:34; Start 11/10/21 at 16:30; Stop 11/13/21 at 10:0 5; Status DC Vancomycin HCl (Vancomycin Random Level) 1 each 1X ONCE MC Last administered on 11/12/21at 05:00; Start 11/12/21 at 05:00; Stop 11/12/21 at 05:01; Status DC Sodium Chloride 1,000 ml @ 1,000 mls/hr Q1H PRN IV hypotension; Start 11/10/21 at 17:00; Stop 11/10/21 at 22:59; Status DC Albumin Human 200 ml @ 200 mls/hr 1X PRN PRN IV Hypotension; Start 11/10/21 at 17:00; Stop 11/10/21 at 22:59; Status DC Sodium Chloride 1,000 ml @ 400 mls/hr Q2H30M PRN IV PATENCY; Start 11/10/21 at 17:00; Stop 11/11/21 at 04:59; Status DC Info (PHARMACY MONITORING -- do not chart) 1 each PRN DAILY PRN MC SEE COMMENTS; Start 11/10/21 at 17:00; Stop 11/10/21 at 16:51; Status DC Info (PHARMACY MONITORING -- do not chart) 1 each PRN DAILY PRN MC SEE COMMENTS; Start 11/10/21 at 17:00; Status Cancel Insulin Glargine (Lantus Syringe) 6 unit DAILY10 SQ Last administered on 11/12/21at 10:00; Start 11/11/21 at 10:00; Stop 11/13/21 at 08:34; Status DC Heparin Sodium (Porcine) (Heparin Sodium) 5,000 unit Q8HRS SQ Last administered on 11/13/21at 16:05; Start 11/11/21 at 14:00 Epoetin Jose (PROCRIT for DIALYSIS PTS) 10,000 unit 3X/WEEK ONCE SQ Last administered on 11/13/21at 15:21; Start 11/13/21 at 09:00; Stop 11/13/21 at 09:01; Status DC Vancomycin HCl 750 mg/Sodium Chloride 250 ml @ 250 mls/hr 1X ONCE IV Last administered on 11/12/21at 11:14; Start 11/12/21 at 10:00; Stop 11/12/21 at 10:59 ; Status DC Vancomycin HCl 500 mg/Sodium Chloride 100 ml @ 100 mls/hr QMWF IV Last administered on 11/13/21at 15:36; Start 11/13/21 at 16:00 Lactobacillus Rhamnosus (Culturelle) 1 cap BID PO Last administered on 11/13/21at 14:51; Start 11/12/21 at 21:00 Aspirin (Ecotrin) 81 mg DAILYWBKFT PO Last administered on 11/13/21at 14:47; Start 11/12/21 at 17:45 Clopidogrel Bisulfate (Plavix) 75 mg DAILYWBKFT PO Last administered on 11/13/21at 14:47; Start 11/12/21 at 17:45 Sodium Chloride 1,000 ml @ 1,000 mls/hr Q1H PRN IV hypotension; Start 11/13/21 at 08:00; Stop 11/13/21 at 13:59; Status DC Sodium Chloride 1,000 ml @ 400 mls/hr Q2H30M PRN IV PATENCY; Start 11/13/21 at 08:00; Stop 11/13/21 at 19:59 Info (PHARMACY MONITORING -- do not chart) 1 each PRN DAILY PRN MC SEE COMMENTS; Start 11/13/21 at 08:00 Insulin Glargine (Lantus Syringe) 4 unit DAILY10 SQ Last administered on 11/13/21at 09:00; Start 11/13/21 at 10:00 Pantoprazole Sodium (Protonix) 40 mg DAILYAC PO ; Start 11/14/21 at 07:30 Active Scripts Active Ondansetron Odt (Ondansetron) 4 Mg Tab.rapdis 1 Tab PO PRN Q6-8HRS PRN Isosorbide Mononitrate Er (Isosorbide Mononitrate) 30 Mg Tab.er.24h 1 Tab PO DAILY 30 Days Clonidine Hcl 0.1 Mg Tablet 0.1 Mg PO TID 30 Days Admelog (Insulin Lispro) 100 Unit/1 Ml Vial 0 Units SQ TIDBFRMEAL 30 Days Use sliding scale at home. Amlodipine Besylate 10 Mg Tablet 10 Mg PO DAILY 30 Days Carvedilol 25 Mg Tablet 25 Mg PO BIDWMEALS 30 Days Atorvastatin Calcium 40 Mg Tablet 40 Mg PO QHS 30 Days Lantus Solostar (Insulin Glargine,Hum.rec.anlog) 100 Unit/1 Ml Insuln.pen 12 Unit SQ DAILY Percocet 7.5-325 Mg Tablet (Oxycodone/Acetaminophen) 1 Each Tablet 1 Tab PO PRN Q6HRS PRN Methocarbamol 750 Mg Tablet 750 Mg PO PRN TID PRN 10 Days Baclofen 10 Mg Tablet 5 Mg PO TID PRN Renvela (Sevelamer Carbonate) 800 Mg Tablet 800 Mg PO TIDWMEALS 30 Days Reported Isosorbide Dinitrate 30 Mg Tablet 2 Tab PO DAILY 30 Days Trazodone Hcl 150 Mg Tablet 150 Mg PO HS Fish Oil 1,000 Mg Softgel ([place]-3 Fatty Acids/Fish Oil) 1 Each Capsule 1 Cap PO DAILY 30 Days Omeprazole 40 Mg Capsule.dr 1 Cap PO DAILY Zenpep 10,000 Units Capsule (Lipase/Protease/Amylase) 1 Each Capsule.dr 3 Cap PO TIDWMEALS Doxazosin Mesylate 4 Mg Tablet 1 Tab PO DAILY Hydralazine Hcl 100 Mg Tablet 1 Tab PO TID Aspir 81 (Aspirin) 81 Mg Tablet. 1 Tab PO DAILY Vitals/I & O Vital Sign - Last 24 Hours 11/12/21 11/12/21 11/12/21 11/12/21 19:09 20:00 22:38 22:39 Temp 97.6 97.6 Pulse 63 63 63 Resp 18 B/P (MAP) 161/69 (99) 161/69 161/69 Pulse Ox 97 O2 Delivery Room Air Nasal Cannula O2 Flow Rate 3.0 11/12/21 11/13/21 11/13/21 11/13/21 23:04 02:45 07:00 08:00 Temp 97.9 98.9 97.9 98.9 Pulse 60 64 Resp 16 16 B/P (MAP) 167/73 (104) 168/72 (104) 160/72 (101) Pulse Ox 99 100 O2 Delivery Room Air Room Air Room Air 11/13/21 11/13/21 11/13/21 11/13/21 10:55 14:30 15:00 15:03 Temp 98.5 98.5 Pulse 65 66 Resp 16 20 18 B/P (MAP) 138/53 (81) 185/70 Pulse Ox 96 96 95 O2 Delivery Room Air Room Air Room Air 4/25/11/13/21 11/13/21 11/13/21 15:04 15:05 15:06 15:08 Pulse 66 66 66 66 B/P (MAP) 185/70 185/70 185/70 185/70 11/13/21 15:45 Resp 20 Pulse Ox 96 O2 Delivery Room Air Intake and Output 11/12/21 11/12/21 11/13/21 15:00 23:00 07:00 Intake Total 300 ml 1780 ml 0 ml Output Total 50 ml Balance 300 ml 1730 ml 0 ml Justifications for Admission Other Justification JACQUELINE RUBALCAVA MD Nov 13, 2021 18:33
[2021-11-13 19:32] VITALS: BP 145/63
[2021-11-13] MEDS: METHOCARBAMOL 750 MG TABLET PO PRN (19:47)
[2021-11-13] MEDS: traZODone 50 MG TABLET. PO SCH (21:23)
[2021-11-13] MEDS: ATORVASTATIN CALCIUM 40 MG TABLET. PO SCH (21:24)
[2021-11-13 23:05] VITALS: BP 141/64
[2021-11-14 02:35] VITALS: BP 166/72
[2021-11-14] MEDS: HEPARIN for SUB-Q USE 5,000 UNIT/ML VIAL. SQ SCH ×3 (05:58→21:11)
[2021-11-14 07:00] VITALS: BP 142/110
[2021-11-14] MEDS: LACTOBACILLUS RHAMNOSUS GG 1 CAPSULE. PO SCH ×2 (08:14→21:07)
[2021-11-14] MEDS: oxyCODONE/APAP 7.5/325 1 TAB TABLET PO PRN ×2 (08:14→21:07)
[2021-11-14] MEDS: PANTOPRAZOLE 40 MG TABLET.DR. PO SCH (08:14)
[2021-11-14] MEDS: ISOSORBIDE MONONITRATE ER 30 MG TAB.ER.24H PO SCH (08:15)
[2021-11-14] MEDS: cloNIDine HCL 0.1 MG TABLET PO SCH ×3 (08:16→20:56)
[2021-11-14] MEDS: DOXAZOSIN MESYLATE 4 MG TABLET. PO SCH (08:16)
[2021-11-14] MEDS: CLOPIDOGREL BISULFATE 75 MG TABLET PO SCH (08:16)
[2021-11-14] MEDS: ASPIRIN ENTERIC COATED 81 MG TABLET.DR. PO SCH (08:17)
[2021-11-14] MEDS: SEVELAMER CARBONATE 800 MG TABLET. PO SCH ×3 (08:17→17:05)
[2021-11-14] MEDS: CARVEDILOL 12.5 MG TABLET. PO SCH ×2 (08:18→17:06)
[2021-11-14] MEDS: INSULIN LISPRO 300 UNITS/3 ML VIAL. SQ SCH ×3 (08:25→16:30)
[2021-11-14] MEDS: LIPASE/PROTEAS/AMYLAS 10/32/42 CAPSULE.DR. PO SCH ×3 (08:38→17:04)
[2021-11-14] MEDS: VANCOMYCIN PER PHARMACY MC PRN (09:08)
--- NOTE | 2021-11-14 09:08 | NUR ---
Pharmacy Vancomycin Dosing Note S: Consulted to monitor and dose vancomycin started 11/10/21. O: ADAIR PINEDA is a 56 year old M with , FEVER and ALTERED MENTAL STATUS . Other Antibiotics: CEFEPIME 1G IV Q24HRS LABS: Last BUN: 27 Last Creatinine: 6.7 Creatinine Clearance: ESRD on HD MWF mL/min Last WBC: 9.4 Last Procalcitonin: Tmax (past 24 hours): 98.5 Microbiology: I/O: N/A Drug Levels: Last Random level: 12.9 on 11/12/21 at 0600 Last dose given 11/13/21 at 1536 Vancomycin Dosing: Dosing Weight: Actual Target Trough: 10-20 A: Based on: P: 1. Vancomycin 500 mg IV qMWF after HD session 2. Pharmacy will continue to monitor, follow and adjust therapy as needed. CELINE MAGALLANES RPH, 11/14/21 0934
--- NOTE | 2021-11-14 09:14 | PDOC ---
IM PROGRESS NOTES- Subjective Subjective No c/o chest pain,dyspnea. Speech is better. Other systems reviewed and are negative. Aphasia is better. Objective Vitals/I&O Vital Signs Date Time Temp Pulse Resp B/P (MAP) Pulse Ox O2 Delivery O2 Flow Rate FiO2 11/14/21 08:39 59 142/110 11/14/21 08:14 Room Air 11/14/21 02:35 99.2 16 100 99.2 I & O 11/13/21 11/13/21 11/14/21 14:59 22:59 06:59 Intake Total 460 ml 430 ml 0 ml Output Total 50 ml Balance 460 ml 380 ml 0 ml Physical Exam Physical Exam General Appearance - alert and in no distress Chest - decreased breath sounds at bases Heart - S1 and S2 normal Abdomen - soft, non tender Neurological - alert and oriented Musculoskeletal - generalized weakness Extremities - no edema Labs Laboratory Tests Test 11/13/21 16:18 11/13/21 20:36 11/14/21 07:48 Glucose (Fingerstick) 211 mg/dL (70-99) H 301 mg/dL (70-99) H 230 mg/dL (70-99) H Meds Current Medications Medications (Trade) Dose Ordered Sig/Ravinder Route PRN Reason Start Time Stop Time Status Last Admin Dose Admin Vancomycin HCl 500 mg/Sodium Chloride 100 ml @ 100 mls/hr QMWF IV 11/13/21 16:00 11/13/21 15:36 Insulin Glargine (Lantus Syringe) 4 unit DAILY10 SQ 11/13/21 10:00 11/13/21 09:00 Pantoprazole Sodium (Protonix) 40 mg DAILYAC PO 11/14/21 07:30 11/14/21 08:14 Assessment Assessment IMP;chest wall pain 1. Acute cerebrovascular accident with aphasia, status post TPA treatment. 2. Acute hypertensive crisis. 3. Diabetic ketoacidosis. 4. Fever, etiology not clear. 5. End-stage renal disease, on hemodialysis. 6. 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 7. Osteoarthritis, status post neck surgery and lumbar surgery and chronic pain. 8. Gastroesophageal reflux disease. 9. Coronary artery disease with history of stent placement. 10. Chronic hypoxic respiratory failure, on oxygen by nasal cannula 2 liters per minute. 11. Chronic obstructive pulmonary disease. 14. Mixed hyperlipidemia. 15. Chronic pancreatitis. 16. Anemia. 17. Physical deconditioning. 18. Cervical spinal stenosis and cervical radiculopathy with several neck surgeries. PLAN:place Lidoderm patch for pain control. BS good . speech normal 1. Acute CVA. The patient had TPA. Consulted Dr. Garner. Aphasia is better. CTA No intracranial large vessel occlusion. No stenosis of the cervical carotid or vertebral arteries, although not well evaluated at the skull base. Brain MRI 1. No evidence of acute intracranial hemorrhage, mass or acute infarct. 2. Mild chronic small vessel ischemic changes and atrophy. 3. Mild sinus disease. Patient is on ASA at home. Plavix added. Stop ASA after one month and continue Plavix. D/w . Hypoglycemia can also give similar symptoms. 2. Diabetes mellitus with very high sugars. Treated for DKA. He is not hypoglycemic. Anion gap is getting worse, so he was treated with insulin, but he is stable and the blood sugars are stable and I will discontinue insulin drip and put him on sliding scale insulin. Restart low dose Lantus. HbA1C 10.2. Hypoglycemia- decrease Lantus to 4 units s/c daily.He was on 12 units daily at home previously. 3. End-stage renal disease, on hemodialysis. Consult Dr. Garcia for Nephrology evaluation and management. 4. Fever, etiology not clear. Order urinalysis and culture. Chest x-ray is negative. Negative blood cultures so far. Consult Dr. Aguilar for Infectious Disease evaluation and management. Started on empiric IV Vancomycin and Cefipime. U/a negative. Leukocytosis is improving.Oral antibiotics as needed per ID on discharge. 5. Consult PT, OT, speech therapy evaluation and management. 6. Hypertensive crisis. Continue Cardene drip. Consult cardiology. 7. Nausea,vomiting, hiccups. Hs GERD. BID IV Protonix. Consulted GI- Dr Cavazos. KUB ? minimal ileus. Better. Advance diet. Hypomagnesemia- replace Magnesium.. For details, please refer to the orders. Long-term as well as short-term prognosis of this patient is very poor due to his multiple medical problems. Discharge when IV antibiotics stopped. He wants to go home and not NH. See me in office next Saturday. Discharge management 35 minutes. Plan Plan For more details regarding further plans, please refer to the orders. Justifications for Admission Other Justification TRINA ALDANA MD Nov 14, 2021 09:14
[2021-11-14] MEDS ORDERED: LACT1CAP19 PO (09:18)
[2021-11-14] MEDS ORDERED: INSU100I13 SQ (09:18)
[2021-11-14] MEDS ORDERED: CLOP75TA PO (09:18)
--- NOTE | 2021-11-14 09:21 | DISCH ---
DISCHARGE INSTRUCTIONS Condition on Discharge Condition on Discharge: Stable Activity After Discharge Activity Instructions for Disc: Activity as tolerated Weight Bearing Status after Di: No restrictions Diet after Discharge Diet after Discharge: Cardiac (ADA) Diet Texture: Regular Liquid Texture: Thin Liquid Swallowing Supervision: None needed Wound Incision Care Wound/Incision Care: No wound care needed Checks after Discharge Checks after discharge: Check blood press - daily, Check blood sugar, ac/hs, Check your Temp as needed, Weigh Yourself Daily Contacting the DR. after DC Call your doctor for: Concerns you may have Follow-Up Follow up with: Dr.Pratip Aldana on Saturday Follow Up With: Road Boss Treatment/Equipment after DC Adaptive Equipment Issued: None Discharge Respiratory Equipmen: Oxygen (2-3 lit/min as needed) TRINA ALDANA MD Nov 14, 2021 09:21
--- NOTE | 2021-11-14 09:56 | PDOC ---
PROGRESS NOTES Date of Service DATE: 11/14/21 TIME: 09:51 Assessment Problems Medical Problems: (1) Acute hypokalemia Status: Acute (2) Aphasia due to acute stroke Status: Acute (3) Hyperglycemia due to type 2 diabetes mellitus Status: Acute (4) Hypertensive urgency Status: Acute Stroke symptoms, may have just been hyperglycemia and hypertension, status-post alteplase. MRI at 24 hours showed no new stroke, CT angiogram negative Echocardiogram bubble study positive for PFO/ASD. Plan Aspirin and Plavix. After a month the aspirin can be discontinued and Plavix continued monotherapy. Continue with atorvastatin Encouraged compliance with blood pressures, diabetes. Note positive echo, cardiology followup pending, left message with Dr. Kaur Discussed with Dr. Valadez Subjective No complaints Objective Vital Signs Date Time Temp Pulse Resp B/P (MAP) Pulse Ox O2 Delivery O2 Flow Rate FiO2 11/14/21 08:39 59 142/110 11/14/21 08:14 Room Air 11/14/21 02:35 99.2 16 100 99.2 Intake and Output 11/14/21 07:00 Intake Total 890 ml Output Total 50 ml Balance 840 ml Intake Oral 740 ml IV Total 150 ml Output Urine Total 50 ml PHYSICAL EXAM Alert. Oriented to time, place and person. PERRL. EOMI. CN: no focal findings. Muscle tone: normal. Muscle strength: 5/5 DTR: 1+ Plantar reflex: Flexor Gait: not examined in bed. Sensory exam: no abnormal findings. No cerebellar signs elicited. Review of Relevant I have reviewed the following items donell (where applicable) has been applied. Labs Laboratory Tests Test 11/12/21 11:34 11/12/21 16:21 11/12/21 20:50 11/12/21 23:10 Glucose (Fingerstick) 305 mg/dL (70-99) 104 mg/dL (70-99) 48 mg/dL (70-99) 97 mg/dL (70-99) Test 11/13/21 00:13 11/13/21 05:00 11/13/21 08:37 11/13/21 16:18 Glucose (Fingerstick) 99 mg/dL (70-99) 177 mg/dL (70-99) 211 mg/dL (70-99) White Blood Count 9.4 x10^3/uL (4.0-11.0) Red Blood Count 3.26 x10^6/uL (4.30-5.70) Hemoglobin 8.9 g/dL (13.0-17.5) Hematocrit 27.4 % (39.0-53.0) Mean Corpuscular Volume 84 fL (79-100) Mean Corpuscular Hemoglobin 28 pg (25-35) Mean Corpuscular Hemoglobin Concent 33 g/dL (31-37) Red Cell Distribution Width 16.2 % (11.5-14.5) Platelet Count 252 x10^3/uL (140-400) Neutrophils (%) (Auto) 64 % (31-73) Lymphocytes (%) (Auto) 25 % (24-48) Monocytes (%) (Auto) 7 % (0-9) Eosinophils (%) (Auto) 4 % (0-3) Basophils (%) (Auto) 1 % (0-3) Neutrophils # (Auto) 6.0 x10^3/uL (1.8-7.7) Lymphocytes # (Auto) 2.4 x10^3/uL (1.0-4.8) Monocytes # (Auto) 0.7 x10^3/uL (0.0-1.1) Eosinophils # (Auto) 0.3 x10^3/uL (0.0-0.7) Basophils # (Auto) 0.1 x10^3/uL (0.0-0.2) Sodium Level 133 mmol/L (136-145) Potassium Level 3.8 mmol/L (3.5-5.1) Chloride Level 98 mmol/L (98-107) Carbon Dioxide Level 26 mmol/L (21-32) Anion Gap 9 (6-14) Blood Urea Nitrogen 27 mg/dL (8-26) Creatinine 6.7 mg/dL (0.7-1.3) Estimated GFR (Cockcroft-Gault) 10.5 Glucose Level 182 mg/dL (70-99) Calcium Level 7.5 mg/dL (8.5-10.1) Phosphorus Level 3.3 mg/dL (2.6-4.7) Albumin 1.7 g/dL (3.4-5.0) Test 11/13/21 20:36 11/14/21 07:48 Glucose (Fingerstick) 301 mg/dL (70-99) 230 mg/dL (70-99) Laboratory Tests Test 11/13/21 16:18 11/13/21 20:36 11/14/21 07:48 Glucose (Fingerstick) 211 mg/dL (70-99) 301 mg/dL (70-99) 230 mg/dL (70-99) Microbiology 11/10/21 Blood Culture - Preliminary, Resulted NO GROWTH AFTER 3 DAYS Medications Current Medications Iohexol (Omnipaque 350 Mg/ml) 75 ml 1X ONCE IV ; Start 11/09/21 at 19:00; Stop 11/09/21 at 19:01; Status DC Info (CONTRAST GIVEN -- Rx MONITORING) 1 each PRN DAILY PRN MC SEE COMMENTS; Start 11/09/21 at 19:00; Stop 11/10/21 at 15:04; Status DC Sodium Chloride 250 ml @ 500 mls/hr 1X ONCE IV ; Start 11/09/21 at 19:15; Stop 11/09/21 at 19:44; Status DC Alteplase, Recombinant 5.4 ml @ 324 mls/hr 1X ONCE IV Last administered on 11/09/21at 20:20; Start 11/09/21 at 20:00; Stop 11/09/21 at 20:01; Status DC Alteplase, Recombinant 48.6 ml @ 48.6 mls/hr 1X ONCE IV Last administered on 11/09/21at 20:21; Start 11/09/21 at 20:00; Stop 11/09/21 at 20:59; Status DC Sodium Chloride 100 ml @ 100 mls/hr 1X ONCE IV Last administered on 11/09/21at 21:30; Start 11/09/21 at 20:00; Stop 11/09/21 at 20:59; Status DC Nicardipine HCl 50 mg/Sodium Chloride 250 ml @ 25 mls/hr CONT PRN PRN IV HYPERTENSION Last administered on 11/10/21at 01:36; Start 11/09/21 at 20:00; Stop 11/10/21 at 06:48; Status DC Insulin Human Regular 100 unit/ Sodium Chloride 101 ml @ 0 mls/hr 1X ONCE IV Last administered on 11/10/21at 00:24; Start 11/09/21 at 20:15; Stop 11/09/21 at 20:16; Status DC Labetalol HCl (Normodyne Iv Push) 10 mg 1X ONCE IVP Last administered on at 20:40; Start 11/09/21 at 20:15; Stop 11/09/21 at 20:16; Status DC Labetalol HCl (Normodyne Iv Push) 20 mg STK-MED ONCE IVP ; Start 11/09/21 at 20:05; Stop 11/09/21 at 20:05; Status DC Potassium Chloride (Klor-Con) 40 meq 1X ONCE PO ; Start 11/09/21 at 20:30; Stop 11/09/21 at 20:31; Status DC Ondansetron HCl (Zofran) 4 mg PRN Q8HRS PRN IVP NAUSEA/VOMITING Last administe red on 11/09/21at 23:33; Start 11/09/21 at 20:30; Stop 11/10/21 at 06:48; Status DC Labetalol HCl (Normodyne Iv Push) 10 mg 1X ONCE IVP Last administered on 11/09/21at 18:05; Start 11/09/21 at 20:30; Stop 11/09/21 at 20:31; Status DC Insulin Human Lispro (HumaLOG) 15 units 1X ONCE SQ ; Start 11/09/21 at 21:30; Stop 11/09/21 at 21:31; Status DC Sodium Chloride 1,000 ml @ 125 mls/hr Q8H IV ; Start 11/10/21 at 00:00; Stop 11/10/21 at 09:59; Status DC Dextrose/Sodium Chloride 1,000 ml @ 125 mls/hr Q8H IV ; Start 11/10/21 at 00:00; Stop 11/10/21 at 09:59; Status DC Insulin Human Regular 100 unit/ Sodium Chloride 101 ml @ 0 mls/hr CONT PRN PRN IV PER PROTOCOL; Start 11/10/21 at 00:00; Stop 11/10/21 at 09:19; Status DC Potassium Chloride/Water 100 ml @ 100 mls/hr PRN Q1HR PRN IV SEE COMMENTS Last administered on 11/10/21at 03:41; Start 11/10/21 at 00:00 Potassium Chloride/Water 100 ml @ 100 mls/hr PRN Q1HR PRN IV SEE COMMENTS; Start 11/10/21 at 00:00 Potassium Chloride/Water 100 ml @ 100 mls/hr PRN Q1HR PRN IV SEE COMMENTS Last administered on 11/10/21at 12:45; Start 11/10/21 at 00:00 Magnesium Sulfate 100 ml @ 25 mls/hr DAILY IV Last administered on 11/11/21at 09:49; Start 11/10/21 at 09:00; Stop 11/13/21 at 08:59; Status DC Sodium Chloride 1,000 ml @ 125 mls/hr Q8H IV Last administered on 11/10/21at 00:44; Start 11/10/21 at 00:45; Stop 11/10/21 at 10:07; Status DC Dextrose/Sodium Chloride 1,000 ml @ 125 mls/hr Q8H IV Last administered on 11/10/21at 03:41; Start 11/10/21 at 03:45; Stop 11/10/21 at 09:59; Status DC Nicardipine HCl (Cardene) 50 mg STK-MED ONCE IV ; Start 11/09/21 at 21:00; Stop 11/10/21 at 04:38; Status DC Sodium Chloride (Iv Sodium Chloride 0.9% 250ml) 250 ml STK-MED ONCE .ROUTE ; Start 11/09/21 at 21:00; Stop 11/10/21 at 04:38; Status DC Sodium Chloride (Iv Sodium Chloride 0.9% 100ml) 100 ml STK-MED ONCE .ROUTE ; Start 11/09/21 at 21:00; Stop 11/10/21 at 04:38; Status DC Labetalol HCl (Normodyne Iv Push) 10 mg PRN Q10MIN PRN IVP HYPERTENSION Last administered on 11/10/21at 13:43; Start 11/10/21 at 06:45 Nicardipine HCl 50 mg/Sodium Chloride 250 ml @ 25 mls/hr CONT PRN PRN IV HYPERTENSION Last administered on 11/11/21at 03:26; Start 11/10/21 at 06:45 Acetaminophen (Tylenol) 650 mg PRN Q6HRS PRN PO MILD PAIN / TEMP > 100.3'F; Start 11/10/21 at 06:45; Status Cancel Acetaminophen (Tylenol Supp) 650 mg PRN Q6HRS PRN TN MILD PAIN / TEMP > 100.3'F; Start 11/10/21 at 06:45 Ondansetron HCl (Zofran) 4 mg PRN Q6HRS PRN IVP NAUSEA/VOMITING 1ST CHOICE Last administered on 11/10/21 20:27; Start 11/10/21 at 06:45 Fentanyl Citrate (Fentanyl 2ml Vial) 50 mcg PRN Q2HR PRN IVP PAIN Last administered on 11/13/21 21:36; Start 11/10/21 at 08:30 Iohexol (Omnipaque 300 Mg/ml) 75 ml 1X ONCE IV Last administered on 11/10/21 08:56; Start 11/10/21 at 08:30; Stop 11/10/21 at 08:31; Status DC Info (CONTRAST GIVEN -- Rx MONITORING) 1 each PRN DAILY PRN MC SEE COMMENTS; Start 11/10/21 at 08:45; Stop 11/12/21 at 08:44; Status DC Amlodipine Besylate (Norvasc) 10 mg DAILY PO Last administered on 11/14/21 08:17; Start 11/10/21 at 09:00 Atorvastatin Calcium (Lipitor) 40 mg QHS PO Last administered on 11/13/21 21:24; Start 11/10/21 at 21:00 Clonidine HCl (Catapres) 0.1 mg TID PO Last administered on 11/14/21 08:16; Start 11/10/21 at 09:00 Doxazosin Mesylate (Cardura) 4 mg DAILY PO Last administered on 11/14/21 08:16; Start 11/10/21 at 09:00 Amylase/Lipase/ Protease (Zenpep 10,000) 3 cap TIDWMEALS PO Last administered on 11/14/21 08:38; Start 11/10/21 at 09:00 Methocarbamol (Robaxin) 750 mg PRN TID PRN PO MUSCLE SPASMS Last administered on 11/13/21 19:47; Start 11/10/21 at 09:00 Ondansetron HCl (Zofran Odt) 4 mg TID PRN PO NAUSEA; Start 11/10/21 at 09:00 Oxycodone/ Acetaminophen (Percocet 7.5/ 325) 1 tab PRN Q6HRS PRN PO MODERATE TO SEVERE PAIN Last administered on 11/14/21 08:14; Start 11/10/21 at 09:00 Sevelamer Carbonate (Renvela) 800 mg TIDWMEALS PO Last administered on 11/14/21 08:17; Start 11/10/21 at 09:30 Carvedilol (Coreg) 25 mg BIDWMEALS PO Last administered on 11/14/21 08:18; Start 11/10/21 at 09:30 Hydralazine HCl (Apresoline) 100 mg TID PO Last administered on 11/14/21 08:39; Start 11/10/21 at 09:30 Isosorbide Mononitrate (Imdur) 60 mg DAILY PO Last administered on 11/14/21 08:15; Start 11/10/21 at 09:30 Pantoprazole Sodium (Protonix) 40 mg DAILYAC PO ; Start 11/10/21 at 09:30; Stop 11/10/21 at 14:29; Status DC Trazodone HCl (Desyrel) 150 mg HS PO Last administered on 11/13/21 21:23; Start 11/10/21 at 21:00 Acetaminophen (Tylenol) 650 mg PRN Q6HRS PRN PO MILD PAIN / TEMP > 100.3'F; Start 11/10/21 at 09:00 Insulin Human Lispro (HumaLOG) 0-8 UNITS TIDBFRMEAL SQ Last administered on 11/14/21 08:25; Start 11/10/21 at 11:30 Baclofen (Lioresal) 5 mg TID PRN PO MUSCLE SPASMS Last administered on 11/13/21 15:09; Start 11/10/21 at 09:30 Prochlorperazine Edisylate (Compazine) 10 mg PRN Q6HRS PRN IV NAUSEA/VOMITING, 2ND CHOICE Last administered on 11/10/21 13:12; Start 11/10/21 at 11:15 Vancomycin HCl (Vanco Per Pharmacy) 1 each PRN DAILY PRN MC SEE COMMENTS Last administered on 11/14/21 09:08; Start 11/10/21 at 11:15 Cefepime HCl (Maxipime) 1 gm Q24H IVP Last administered on 11/13/21 15:07; Start 11/10/21 at 12:00 Vancomycin HCl 1.5 gm/Sodium Chloride 500 ml @ 250 mls/hr 1X ONCE IV Last administered on 11/10/21at 13:35; Start 11/10/21 at 13:00; Stop 11/10/21 at 14:59; Status DC Potassium Chloride/Water 100 ml @ 100 mls/hr Q1H IV Last administered on 11/10/21at 18:00; Start 11/10/21 at 13:00; Stop 11/10/21 at 18:59; Status DC Pantoprazole Sodium (PROTONIX VIAL for IV PUSH) 40 mg 1X ONCE IVP Last administered on 11/10/21at 13:19; Start 11/10/21 at 13:30; Stop 11/10/21 at 13:31; Status DC Hydralazine HCl (Apresoline Inj) 20 mg PRN Q4HRS PRN IVP ELEVATED BP, SEE COMMENTS Last administered on 11/10/21at 18:52; Start 11/10/21 at 14:30 Pantoprazole Sodium (PROTONIX VIAL for IV PUSH) 40 mg DAILYAC IVP ; Start 11/11/21 at 07:30; Stop 11/10/21 at 14:32; Status DC Pantoprazole Sodium (PROTONIX VIAL for IV PUSH) 40 mg BIDAC IVP Last administered on 11/12/21at 16:34; Start 11/10/21 at 16:30; Stop 11/13/21 at 10:05; Status DC Vancomycin HCl (Vancomycin Random Level) 1 each 1X ONCE MC Last administered on 11/12/21at 05:00; Start 11/12/21 at 05:00; Stop 11/12/21 at 05:01; Status DC Sodium Chloride 1,000 ml @ 1,000 mls/hr Q1H PRN IV hypotension; Start 11/10/21 at 17:00; Stop 11/10/21 at 22:59; Status DC Albumin Human 200 ml @ 200 mls/hr 1X PRN PRN IV Hypotension; Start 11/10/21 at 17:00; Stop 11/10/21 at 22:59; Status DC Sodium Chloride 1,000 ml @ 400 mls/hr Q2H30M PRN IV PATENCY; Start 11/10/21 at 17:00; Stop 11/11/21 at 04:59; Status DC Info (PHARMACY MONITORING -- do not chart) 1 each PRN DAILY PRN MC SEE COMMENTS; Start 11/10/21 at 17:00; Stop 11/10/21 at 16:51; Status DC Info (PHARMACY MONITORING -- do not chart) 1 each PRN DAILY PRN MC SEE COMMENTS; Start 11/10/21 at 17:00; Status Cancel Insulin Glargine (Lantus Syringe) 6 unit DAILY10 SQ Last administered on 11/12/21at 10:00; Start 11/11/21 at 10:00; Stop 11/13/21 at 08:34; Status DC Heparin Sodium (Porcine) (Heparin Sodium) 5,000 unit Q8HRS SQ Last administered on 11/14/21at 05:58; Start 11/11/21 at 14:00 Epoetin Jose (PROCRIT for DIALYSIS PTS) 10,000 unit 3X/WEEK ONCE SQ Last administered on 11/13/21at 15:21; Start 11/13/21 at 09:00; Stop 11/13/21 at 09:01; Status DC Vancomycin HCl 750 mg/Sodium Chloride 250 ml @ 250 mls/hr 1X ONCE IV Last administered on 11/12/21at 11:14; Start 11/12/21 at 10:00; Stop 11/12/21 at 10:59; Status DC Vancomycin HCl 500 mg/Sodium Chloride 100 ml @ 100 mls/hr QMWF IV Last administered on 11/13/21at 15:36; Start 11/13/21 at 16:00 Lactobacillus Rhamnosus (Culturelle) 1 cap BID PO Last administered on 11/14/21at 08:14; Start 11/12/21 at 21:00 Aspirin (Ecotrin) 81 mg DAILYWBKFT PO Last administered on 11/14/21at 08:17; Start 11/12/21 at 17:45 Clopidogrel Bisulfate (Plavix) 75 mg DAILYWBKFT PO Last administered on 11/14/21at 08:16; Start 11/12/21 at 17:45 Sodium Chloride 1,000 ml @ 1,000 mls/hr Q1H PRN IV hypotension; Start 11/13/21 at 08:00; Stop 11/13/21 at 13:59; Status DC Sodium Chloride 1,000 ml @ 400 mls/hr Q2H30M PRN IV PATENCY; Start 11/13/21 at 08:00; Stop 11/13/21 at 19:59; Status DC Info (PHARMACY MONITORING -- do not chart) 1 each PRN DAILY PRN MC SEE COMMENTS Last administered on 11/14/21at 09:04; Start 11/13/21 at 08:00 Insulin Glargine (Lantus Syringe) 4 unit DAILY10 SQ Last administered on 11/13/21at 09:00; Start 11/13/21 at 10:00 Pantoprazole Sodium (Protonix) 40 mg DAILYAC PO Last administered on 11/14/21at 08:14; Start 11/14/21 at 07:30 Insulin Glargine (Lantus Syringe) 4 unit DAILY10 SQ ; Start 11/14/21 at 10:00; Stop 11/14/21 at 08:24; Status DC Active Scripts Active Culturelle (Lactobacillus Rhamnosus Gg) 1 Each Cap.sprink 1 Cap PO BID 15 Days Clopidogrel (Clopidogrel Bisulfate) 75 Mg Tablet 75 Mg PO DAILYWBKFT 30 Days Lantus Solostar (Insulin Glargine,Hum.rec.anlog) 100 Unit/1 Ml Insuln.pen 4 Unit SQ DAILY Hold if glucose less than 100 Ondansetron Odt (Ondansetron) 4 Mg Tab.rapdis 1 Tab PO PRN Q6-8HRS PRN Clonidine Hcl 0.1 Mg Tablet 0.1 Mg PO TID 30 Days Admelog (Insulin Lispro) 100 Unit/1 Ml Vial 0 Units SQ TIDBFRMEAL 30 Days Use sliding scale at home. Amlodipine Besylate 10 Mg Tablet 10 Mg PO DAILY 30 Days Carvedilol 25 Mg Tablet 25 Mg PO BIDWMEALS 30 Days Atorvastatin Calcium 40 Mg Tablet 40 Mg PO QHS 30 Days Percocet 7.5-325 Mg Tablet (Oxycodone/Acetaminophen) 1 Each Tablet 1 Tab PO PRN Q6HRS PRN Methocarbamol 750 Mg Tablet 750 Mg PO PRN TID PRN 10 Days Baclofen 10 Mg Tablet 5 Mg PO TID PRN Renvela (Sevelamer Carbonate) 800 Mg Tablet 800 Mg PO TIDWMEALS 30 Days Reported Isosorbide Dinitrate 30 Mg Tablet 2 Tab PO DAILY 30 Days Trazodone Hcl 150 Mg Tablet 150 Mg PO HS Fish Oil 1,000 Mg Softgel ([place]-3 Fatty Acids/Fish Oil) 1 Each Capsule 1 Cap PO DAILY 30 Days Omeprazole 40 Mg Capsule.dr 1 Cap PO DAILY Nataliep 10,000 Units Capsule (Lipase/Protease/Amylase) 1 Each Capsule.dr 3 Cap PO TIDWMEALS Doxazosin Mesylate 4 Mg Tablet 1 Tab PO DAILY Hydralazine Hcl 100 Mg Tablet 1 Tab PO TID Aspir 81 (Aspirin) 81 Mg Tablet.dr 1 Tab PO DAILY Vitals/I & O Vital Sign - Last 24 Hours 11/13/21 11/13/21 11/13/21 11/13/21 10:55 14:30 15:00 15:03 Temp 98.5 98.5 Pulse 65 66 Resp 16 20 18 B/P (MAP) 138/53 (81) 185/70 Pulse Ox 96 96 95 O2 Delivery Room Air Room Air Room Air 11/13/21 11/13/21 11/13/21 11/13/21 15:04 15:05 15:06 15:08 Pulse 66 66 66 66 B/P (MAP) 185/70 185/70 185/70 185/70 11/13/21 11/13/21 11/13/21 11/13/21 15:45 16:30 18:29 18:30 Pulse 66 Resp 20 B/P (MAP) 185/70 Pulse Ox 96 O2 Delivery Room Air Room Air Room Air 11/13/21 11/13/21 11/13/21 11/13/21 19:32 21:24 21:24 21:30 Temp 98.3 98.3 Pulse 82 82 82 Resp 18 B/P (MAP) 145/63 (90) 145/63 145/63 Pulse Ox 97 O2 Delivery Room Air Room Air 11/13/21 11/14/21 11/14/21 11/14/21 23:05 02:35 08:14 08:15 Temp 98.5 99.2 98.5 99.2 Pulse 58 59 59 Resp 16 16 B/P (MAP) 141/64 (89) 166/72 (103) 142/110 Pulse Ox 99 100 O2 Delivery Room Air Room Air Room Air 11/14/21 11/14/21 11/14/21 11/14/21 08:16 08:16 08:17 08:18 Pulse 59 59 59 59 B/P (MAP) 142/110 142/110 142/110 142/110 11/14/21 08:39 Pulse 59 B/P (MAP) 142/110 Intake and Output 11/13/21 11/13/21 11/14/21 15:00 23:00 07:00 Intake Total 460 ml 430 ml 0 ml Output Total 50 ml Balance 460 ml 380 ml 0 ml Images Echocardiogram, reported 11/13 LEFT VENTRICLE The left ventricle is normal size. There is mild concentric left ventricular hypertrophy. Estimated ejection fraction 60%. The left ventricular systolic function is normal. The ejection fraction is 60-65%. There is normal LV segmental wall motion. The left ventricular diastolic function and filling is normal for age. RIGHT VENTRICLE The right ventricle is normal size. There is normal right ventricular wall thickness. The right ventricular systolic function is normal. ATRIA The left atrium is mildly dilated. The right atrium size is normal. Positive bubble study. AORTIC VALVE The aortic valve is normal in structure and function. Doppler and Color Flow revealed no significant aortic regurgitation. There is no significant aortic valvular stenosis. MITRAL VALVE The mitral valve is normal in structure and function. There is no evidence of mitral valve prolapse. There is no mitral valve stenosis. Doppler and Color-flow revealed mild mitral regurgitation. TRICUSPID VALVE The tricuspid valve is normal in structure and function. Doppler and Color Flow revealed trace tricuspid regurgitation. Estimated PAP 38-40 mmHg. There is no tricuspid valve stenosis. PULMONIC VALVE The pulmonary valve is normal in structure and function. Doppler and Color Flow revealed trace pulmonic valvular regurgitation. GREAT VESSELS The aortic root is mildly enlarged. The ascending aorta is Mildly dilated. The IVC is normal in size and collapses >50% with inspiration. PERICARDIAL EFFUSION There is no evidence of significant pericardial effusion. Critical Notification Critical Value: No <Conclusion> The left ventricular systolic function is normal. The ejection fraction is 60-65%. There is normal LV segmental wall motion. Mild mitral regurgitation. Trace tricuspid regurgitation. Estimated PAP 38-40 mmHg. There is no evidence of significant pericardial effusion. Bubble study positive for PFO/ASD. Justicifation of Admission Dx: Justifications for Admission: Justification of Admission Dx: N/A AKIN ALEXANDER MD Nov 14, 2021 09:56
[2021-11-14] MEDS ORDERED: INSULIN GLARGINE SYRINGE. SQ SCH (10:00)
--- NOTE | 2021-11-14 10:21 | NUR ---
pt. down for video swallow. ST states pt c/o "CP, but not really". Upon assessment, pt stating his pain is not new and a result of a fall he sustained at home. Pt. also asking when he can d/c home. Pt. educated of procedures needing resulted and approval of meds from consults. Pt. verbalized understanding but reinforcement needed.
[2021-11-14] MEDS ORDERED: BARIUM SULFATE 40% (APPLE) 148 GM PWD. PO ONE (10:30)
[2021-11-14] MEDS: INSULIN GLARGINE SYRINGE. SQ SCH (10:45)
[2021-11-14 11:00] VITALS: BP 167/77
--- NOTE | 2021-11-14 11:13 | PDOC ---
MARÍA BURNS PAYROLL CLERK 11/14/21 1113: CARDIO Progress Notes Date and Time Date of Service 11/14/2021 Time of Evaluation 1030 Subjective Subjective: No Chest Pain, No shortness of breath, No Palpitations Vitals Vitals Vital Signs Date Time Temp Pulse Resp B/P (MAP) Pulse Ox O2 Delivery O2 Flow Rate FiO2 11/14/21 09:55 Room Air 11/14/21 08:39 59 142/110 11/14/21 07:00 98.4 17 91 98.4 Weight Weight [ ] Input and Output Intake and Output Intake and Output 11/14/21 07:00 Intake Total 890 ml Output Total 50 ml Balance 840 ml Intake Oral 740 ml IV Total 150 ml Output Urine Total 50 ml Laboratory Labs Laboratory Tests Test 11/13/21 16:18 11/13/21 20:36 11/14/21 07:48 Glucose (Fingerstick) 211 mg/dL (70-99) 301 mg/dL (70-99) 230 mg/dL (70-99) Microbiology Micro Microbiology 11/10/21 Blood Culture - Preliminary, Resulted NO GROWTH AFTER 3 DAYS Physical Exam HEENT: Neck Supple W Full Motion Chest: Symmetric LUNGS: Clear to Auscultation Heart: RRR (SR) Abdomen: Soft N/T Extremities: No Edema, No Calf Tenderness Neurology: alert, oriented, follow commands Assessment Assessment 1. Acute Stroke with aphasia: also with element of metabolic encephalopathy. S/P tPA 2. HTN urgency: still has labile episodes 3. Uncontrolled DM2: improved 4. Hyponatremia: resolved 5. Hypokalemia: resolved 6. ESRD per nephrology 7. Fever with possible sepsis: ID following. Afebrile 8. CAD s/p PCI/stent to the LCx; [facility] 01/09 showed patent LCx stent and no lesions needing intervention. Follows with Dr. Jahaira FOSTER Clinically stable 9. Chronic diastolic CHF: compensated 10. HLP 11. Possible gastric erosion: coffee ground stain to prior emesis Defer further to PCP 12. Nausea and vomiting: resolved 13. PFO/ASD: positive bubble study per TTE Recommendations 1. ASA and plavix per neurology 2. He will need future PFO closure possibly in 4-6 weeks. Discussed with pt and he would like to get this done at [facility] via Dr. Campo his botany teacher 3. Fluid off loading per HD 4. Continue current regimen if BP remains labile then consider adding cardura, Secondary prevention measures Justicifation of Admission Dx: Justifications for Admission: Justification of Admission Dx: N/A JACQUELINE RUBALCAVA MD 11/14/21 2003: CARDIO Progress Notes Assessment Assessment Patient seen and examined The patient looks and feels better today. I agree with our nurse practitioners assessment and plan. Acute Stroke with aphasia: also with element of metabolic encephalopathy. S/P tPA HTN urgency: Blood pressure improved. Uncontrolled DM2: improved Hyponatremia: resolved Hypokalemia: resolved ESRD per nephrology Fever with possible sepsis: ID following. Afebrile CAD s/p PCI/stent to the LCx; [facility] 01/09 showed patent LCx stent and no lesions needing intervention. Follows with Dr. Jahaira FOSTER Clinically stable Chronic diastolic CHF: compensated HLP Possible gastric erosion: coffee ground stain to prior emesis Defer further to PCP Nausea and vomiting: resolved PFO/ASD: positive bubble study per TTE. The patient will follow up with his primary botany teacher at . MARÍA BURNS APRN Nov 14, 2021 11:13 JACQUELINE RUBALCAVA MD Nov 14, 2021 20:03
--- NOTE | 2021-11-14 11:13 | PDOC ---
DATE OF SERVICE DATE: 11/14/21 TIME: 11:13 SUBJECTIVE ROS No complaints , denies SOB. Sitting up in chair States lots going on , " I have a hole in my heart and will be referred to cadriology at " OBJECTIVE Vital Signs Vital Signs Date Time Temp Pulse Resp B/P (MAP) Pulse Ox O2 Delivery O2 Flow Rate FiO2 11/14/21 09:55 Room Air 11/14/21 08:39 59 142/110 11/14/21 07:00 98.4 17 91 98.4 I & 0 Intake and Output 11/14/21 07:00 Intake Total 890 ml Output Total 50 ml Balance 840 ml Intake Oral 740 ml IV Total 150 ml Output Urine Total 50 ml PHYSICAL EXAM Physical Exam General: NAD , Lying in bed HEENT:Normocephalic andatraumatic. OM moist Neck:Supple without bruit, no meningismus Lungs CTA , Non labored CV S1S2 Abd Soft, NT , BS + Integum- No Rash Ext No LE edema Neuro- Grossly Normal, Moving all 4 extrem. Aphasia resolved No Bob, No SP pr CVA tenderness DIAGNOSIS/ASSESSMENT Assessment & Plan ESRD On HD MWF No indication for dialysis today . If Dced , will resume at his OP unit Acute cerebrovascular accident with aphasia, status post TPA treatment Per neurology may have just been hyperglycemia and hypertension, status-post alteplase. MRI at 24 hours showed no new stroke, CT angiogram negative Acute hypertensive crisis- Renal Doppler in Aug 2019, No e/o JOSELYN . On multiple meds including . Card manages Diabetic ketoacidosis. HypoNatremia- Chronic. History of severe Apr 2021 Na to 118 . Na improved since we dced Mirtazipine . 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 PFO he will follow up with Dr. Campo at [facility] and discuss about future closure . CAD s/p PCI/stent to the LCx; [facility] 01/09 showed patent LCx stent and no lesions needing intervention. Follows with [facility], Dr. Campo. Chronic hypoxic respiratory failure, on oxygen by nasal cannula 2 liters per minute. Chronic obstructive pulmonary disease. History of prostate cancer.s/p Radiation treatment Hx of COVID 19 Pneumonia Chronic pancreatitis. COMMENT/RELEVANT DATA Meds Current Medications Medications (Trade) Dose Ordered Sig/Ravinder Start Time Stop Time Status Last Admin Dose Admin Acetaminophen (Tylenol Supp) 650 mg PRN Q6HRS PRN 11/10/21 06:45 Acetaminophen (Tylenol) 650 mg PRN Q6HRS PRN 11/10/21 09:00 Albumin Human 200 ml @ 200 mls/hr 1X PRN PRN 11/10/21 17:00 11/10/21 22:59 DC Alteplase, Recombinant 48.6 ml @ 48.6 mls/hr 1X ONCE 11/09/21 20:00 11/09/21 20:59 DC 11/09/21 20:21 48.6 MLS/HR Amlodipine Besylate (Norvasc) 10 mg DAILY 11/10/21 09:00 11/14/21 08:17 10 MG Amylase/Lipase/ Protease (Zenpep 10,000) 3 cap TIDWMEALS 11/10/21 09:00 11/14/21 08:38 3 CAP Aspirin (Ecotrin) 81 mg DAILYWBKFT 11/12/21 17:45 11/14/21 08:17 81 MG Atorvastatin Calcium (Lipitor) 40 mg QHS 11/10/21 21:00 11/13/21 21:24 40 MG Baclofen (Lioresal) 5 mg TID PRN 11/10/21 09:30 11/13/21 15:09 5 MG Barium Sulfate (Varibar Thin Liquid Apple) 148 gm 1X ONCE 11/14/21 10:30 11/14/21 10:31 DC 11/14/21 10:33 148 GM Carvedilol (Coreg) 25 mg BIDWMEALS 11/10/21 09:30 11/14/21 08:18 25 MG Cefepime HCl (Maxipime) 1 gm Q24H 11/10/21 12:00 11/13/21 15:07 1 GM Clonidine HCl (Catapres) 0.1 mg TID 11/10/21 09:00 11/14/21 08:16 0.1 MG Clopidogrel Bisulfate (Plavix) 75 mg DAILYWBKFT 11/12/21 17:45 11/14/21 08:16 75 MG Dextrose/Sodium Chloride 1,000 ml @ 125 mls/hr Q8H 11/10/21 03:45 11/10/21 09:59 DC 11/10/21 03:41 125 MLS/HR Doxazosin Mesylate (Cardura) 4 mg DAILY 11/10/21 09:00 11/14/21 08:16 4 MG Epoetin Jose (PROCRIT for DIALYSIS PTS) 10,000 unit 3X/WEEK ONCE 11/13/21 09:00 11/13/21 09:01 DC 11/13/21 15:21 10,000 UNIT Fentanyl Citrate (Fentanyl 2ml Vial) 50 mcg PRN Q2HR PRN 11/10/21 08:30 11/13/21 21:36 50 MCG Heparin Sodium (Porcine) (Heparin Sodium) 5,000 unit Q8HRS 11/11/21 14:00 11/14/21 05:58 5,000 UNIT Hydralazine HCl (Apresoline Inj) 20 mg PRN Q4HRS PRN 11/10/21 14:30 11/10/21 18:52 20 MG Hydralazine HCl (Apresoline) 100 mg TID 11/10/21 09:30 11/14/21 08:39 100 MG Info (CONTRAST GIVEN -- Rx MONITORING) 1 each PRN DAILY PRN 11/10/21 08:45 11/12/21 08:44 DC Info (PHARMACY MONITORING -- do not chart) 1 each PRN DAILY PRN 11/13/21 08:00 11/14/21 09:04 1 EACH Insulin Glargine (Lantus Syringe) 4 unit DAILY10 11/14/21 10:00 11/14/21 08:24 DC Insulin Human Lispro (HumaLOG) 0-8 UNITS TIDBFRMEAL 11/10/21 11:30 11/14/21 08:25 3 UNITS Insulin Human Regular 100 unit/ Sodium Chloride 101 ml @ 0 mls/hr CONT PRN PRN 11/10/21 00:00 11/10/21 09:19 DC Iohexol (Omnipaque 300 Mg/ml) 75 ml 1X ONCE 11/10/21 08:30 11/10/21 08:31 DC 11/10/21 08:56 75 ML Iohexol (Omnipaque 350 Mg/ml) 75 ml 1X ONCE 11/09/21 19:00 11/09/21 19:01 DC Isosorbide Mononitrate (Imdur) 60 mg DAILY 11/10/21 09:30 11/14/21 08:15 60 MG Labetalol HCl (Normodyne Iv Push) 10 mg PRN Q10MIN PRN 11/10/21 06:45 11/10/21 13:43 10 MG Lactobacillus Rhamnosus (Culturelle) 1 cap BID 11/12/21 21:00 11/14/21 08:14 1 CAP Magnesium Sulfate 100 ml @ 25 mls/hr DAILY 11/10/21 09:00 11/13/21 08:59 DC 11/11/21 09:49 25 MLS/HR Methocarbamol (Robaxin) 750 mg PRN TID PRN 11/10/21 09:00 11/13/21 19:47 750 MG Nicardipine HCl (Cardene) 50 mg STK-MED ONCE 11/09/21 21:00 11/10/21 04:38 DC Nicardipine HCl 50 mg/Sodium Chloride 250 ml @ 25 mls/hr CONT PRN PRN 11/10/21 06:45 11/11/21 03:26 25 MLS/HR Ondansetron HCl (Zofran Odt) 4 mg TID PRN 11/10/21 09:00 Ondansetron HCl (Zofran) 4 mg PRN Q6HRS PRN 11/10/21 06:45 11/10/21 20:27 4 MG Oxycodone/ Acetaminophen (Percocet 7.5/ 325) 1 tab PRN Q6HRS PRN 11/10/21 09:00 11/14/21 08:14 1 TAB Pantoprazole Sodium (PROTONIX VIAL for IV PUSH) 40 mg BIDAC 11/10/21 16:30 11/13/21 10:05 DC 11/12/21 16:34 40 MG Pantoprazole Sodium (Protonix) 40 mg DAILYAC 11/14/21 07:30 11/14/21 08:14 40 MG Potassium Chloride/Water 100 ml @ 100 mls/hr Q1H 11/10/21 13:00 11/10/21 18:59 DC 11/10/21 18:00 100 MLS/HR Potassium Chloride (Klor-Con) 40 meq 1X ONCE 11/09/21 20:30 11/09/21 20:31 DC Prochlorperazine Edisylate (Compazine) 10 mg PRN Q6HRS PRN 11/10/21 11:15 11/10/21 13:12 10 MG Sevelamer Carbonate (Renvela) 800 mg TIDWMEALS 11/10/21 09:30 11/14/21 08:17 800 MG Sodium Chloride 1,000 ml @ 400 mls/hr Q2H30M PRN 11/13/21 08:00 11/13/21 19:59 DC Sodium Chloride (Iv Sodium Chloride 0.9% 100ml) 100 ml STK-MED ONCE 11/09/21 21:00 11/10/21 04:38 DC Sodium Chloride (Iv Sodium Chloride 0.9% 250ml) 250 ml STK-MED ONCE 11/09/21 21:00 11/10/21 04:38 DC Trazodone HCl (Desyrel) 150 mg HS 11/10/21 21:00 11/13/21 21:23 150 MG Vancomycin HCl (Vanco Per Pharmacy) 1 each PRN DAILY PRN 11/10/21 11:15 11/14/21 09:08 1 EACH Vancomycin HCl (Vancomycin Random Level) 1 each 1X ONCE 11/12/21 05:00 11/12/21 05:01 DC 11/12/21 05:00 1 EACH Vancomycin HCl 1.5 gm/Sodium Chloride 500 ml @ 250 mls/hr 1X ONCE 11/10/21 13:00 11/10/21 14:59 DC 11/10/21 13:35 250 MLS/HR Vancomycin HCl 500 mg/Sodium Chloride 100 ml @ 100 mls/hr QMWF 11/13/21 16:00 11/13/21 15:36 100 MLS/HR Vancomycin HCl 750 mg/Sodium Chloride 250 ml @ 250 mls/hr 1X ONCE 11/12/21 10:00 11/12/21 10:59 DC 11/12/21 11:14 250 MLS/HR Lab Laboratory Tests Test 11/13/21 16:18 11/13/21 20:36 11/14/21 07:48 Glucose (Fingerstick) 211 mg/dL (70-99) 301 mg/dL (70-99) 230 mg/dL (70-99) Results All relevant outside records, renal labs, imaging studies, telemetry/EKG's were reviewed. Justicifation of Admission Dx: Justifications for Admission: Justification of Admission Dx: N/A TIEN,CARLO MD Nov 14, 2021 11:13
--- NOTE | 2021-11-14 11:15 | PDOC ---
Date of Service: DATE: 11/14/21 TIME: 11:11 Objective: Objective: D/w nurse - had videoswallow, c/o "stabbing" abd pain earlier but ate breakfast. Vital Signs: Vital Signs Date Time Temp Pulse Resp B/P (MAP) Pulse Ox O2 Delivery O2 Flow Rate FiO2 11/14/21 09:55 Room Air 11/14/21 08:39 59 142/110 11/14/21 07:00 98.4 17 91 98.4 Labs: Laboratory Tests Test 11/13/21 16:18 11/13/21 20:36 11/14/21 07:48 Glucose (Fingerstick) 211 mg/dL 301 mg/dL 230 mg/dL Imaging: [employer] ARCHIT[employer] Pt spontaneously utilized small single sips thin liquid and small bites solids, c/w education and instruction from yesterday's SENIOR BUSINESS ARCHITECT tx session. Overt s/s aspiration w/ thin were reduced to throat clear x 1 of 8 trials thin liquid. Pt also demo'd add'l throat clear after thin liquid swallow that followed regular solid, as described abv. Videoswallow indicated. RECOMMENDATIONS: Proceed with videoswallow eval today w/ add'l recommendations to follow. Videoswallow 11/14 pending PE: GEN: NAD - dressed, up in chair speaking w/ another physician ABD: non-distended NEURO/PSYCH: A & O 3 A/P: Suspected stroke ?abd pain HTN, ESRD on HD, DM GERD, chronic pancreatitis -- Did not interrupt current discussion - will return later to follow-up on abd pain from earlier today. Tolerating diet, videoswallow pending. Continue PPI. Justicifation of Admission Dx: Justifications for Admission: Justification of Admission Dx: N/A KIMMY MARAVILLA Nov 14, 2021 11:15
--- NOTE | 2021-11-14 11:50 | RAD ---
DG VIDEO SWALLOW STUDY Reason for Examination: Reason: delay in swallowing w/ cough / Spl. Instructions: 1.2 MINUTES FLUORO TIME / History: With the patient in the lateral projection, using video observation and recording, the patient was as ked to swallow barium liquid, barium nectar, barium impregnated pudding, and chew and swallow barium impregnated mixed consistency and cracker. Penetration with thin consistency utilizing a straw single episode. No aspiration with any consistenc y. Interpretation (personally supervised): Total fluoroscopy time was 1.2 minutes Fluoroscopic spot images: 15 Impression: 1. No aspiration. 2. Penetration with thin consistency utilizing a straw. Please refer to speech pathology notes for further details. Electronically signed by: Omid Arnold DO (11/14/2021 11:48 AM) [id number]
--- NOTE | 2021-11-14 11:53 | NUR ---
SS following up with discharge planning. SS reviewed pt chart and discussed with pt RN. Pt is from home with brother and is currently on room air. Pt has outpatient hemodialysis at [facility], ; fax [phone], Saturday, Saturday, and Saturday. Pt on IV Vancomycin and IV Cefepime. Pt had video swallow today. PO diet. PT/OT recommended home independent. SS will continue to follow for discharge planning.
[2021-11-14] MEDS: CEFEPIME HCL IV Push 1 GM VIAL. IVP SCH (11:59)
[2021-11-14] MEDS: fentaNYL PF VIAL 100 MCG/2 ML VIAL IVP PRN (11:59)
[2021-11-14] MEDS: ONDANSETRON PF 4 MG/2 ML VIAL. IVP PRN ×2 (12:12→18:05)
--- NOTE | 2021-11-14 12:20 | NUR ---
Pt. states he does not feel well, appears pale. Pt. refused lunch, found to have vomited x 1. Dr. Aguilra notified, Dr. muñiz paged. Pt. also still complaining of CP that feels the same as when he fell a few days ago.
--- NOTE | 2021-11-14 13:14 | PDOC ---
Infectious Disease Note Subjective Subjective Patient feels better Though did have some nausea vomiting Vital Sign Vital Signs Vital Signs Date Time Temp Pulse Resp B/P (MAP) Pulse Ox O2 Delivery O2 Flow Rate FiO2 11/14/21 12:35 Room Air 11/14/21 11:00 97.3 59 18 167/77 (107) 95 97.3 Physical Exam PHYSICAL EXAM GENERAL: Alert oriented x3 male in no acute distress looks better HEENT: Both pupils are round and reacting. No conjunctival lesion. No oral lesion. NECK: Supple, no JVP, LUNGS: Clear. Chest wall costochondral pain on the left chest site HEART: S1, S2, regular. ABDOMEN: Soft, nontender, no organomegaly. EXTREMITIES: No edema, cyanosis. SKIN: No gen rash NEUROLOGIC: Alert oriented x3 male in no acute distress moves all 4 extremities. RT IJ in place Labs Lab Laboratory Tests Test 11/13/21 16:18 11/13/21 20:36 11/14/21 07:48 11/14/21 11:14 Glucose (Fingerstick) 211 mg/dL (70-99) 301 mg/dL (70-99) 230 mg/dL (70-99) 84 mg/dL (70-99) Micro Microbiology 11/10/21 Blood Culture - Preliminary, Resulted NO GROWTH AFTER 3 DAYS Objective Assessment 1. Fever.Could be from aspiration,BC negative so far 2. Encephalopathy, Aphasia due to acute stroke. 3. Hypertensive crisis. 4. Diabetes. 5. End-stage renal disease, on hemodialysis. 6. Hypertensive urgency 7. Pancreatitis on KUB Plan Plan of Care Discontinue vancomycin and cefepime Supportive care Okay to DC from ID standpoint JUDIE BANUELOS MD Nov 14, 2021 13:14
[2021-11-14 14:37] VITALS: BP 172/72
--- NOTE | 2021-11-14 15:03 | RAD ---
XR ABDOMEN 1V History: Reason: abd pain, vomiting / Spl. Instructions: / History: Technique: Supine view the abdomen. Comparison: November 10, 2021 radiograph abdomen. Swallow study November 14, 2021 Findings: Contrast noted within the stomach and small bowel from recent swallow study. No significant bowel dil atation. Moderate stool throughout the colon. Impression: 1. Nonobstructed bowel gas pattern. 2. Moderate colonic stool burden. Electronically signed by: Omid Arnold DO (11/14/2021 3:01 PM) [id number]
[2021-11-14 19:00] VITALS: BP 196/93
[2021-11-14] MEDS: ONDANSETRON ODT 4 MG TAB.RAPDIS. PO PRN (20:17)
[2021-11-14] MEDS: ATORVASTATIN CALCIUM 40 MG TABLET. PO SCH (20:55)
[2021-11-14] MEDS: traZODone 50 MG TABLET. PO SCH (20:57)
[2021-11-14 23:56] VITALS: BP 172/77
[2021-11-15 03:23] VITALS: BP 161/68
[2021-11-15] MEDS: HEPARIN for SUB-Q USE 5,000 UNIT/ML VIAL. SQ SCH ×2 (06:18→14:00)
[2021-11-15 07:00] VITALS: BP 176/73
[2021-11-15 07:17] LABS: CALCIUM 7.6 mg/dL (8.5-10.1); CREATININE 5.6 mg/dL (0.7-1.3); GFR 12.9; POTASSIUM 3.6 mmol/L (3.5-5.1)
[2021-11-15] MEDS: LACTOBACILLUS RHAMNOSUS GG 1 CAPSULE. PO SCH (07:59)
[2021-11-15] MEDS: ISOSORBIDE MONONITRATE ER 30 MG TAB.ER.24H PO SCH (07:59)
[2021-11-15] MEDS: LIPASE/PROTEAS/AMYLAS 10/32/42 CAPSULE.DR. PO SCH ×2 (07:59→12:00)
[2021-11-15] MEDS: ASPIRIN ENTERIC COATED 81 MG TABLET.DR. PO SCH (07:59)
[2021-11-15] MEDS: DOXAZOSIN MESYLATE 4 MG TABLET. PO SCH (08:00)
[2021-11-15] MEDS ORDERED: IV NORMAL SALINE 1000ML BAG 1,000 ML IV PRN ×2 (08:00)
[2021-11-15] MEDS ORDERED: ALBUMIN HUMAN 25% 200 ML IV PRN (08:00)
[2021-11-15] MEDS ORDERED: DIALYSIS PATIENT. MC PRN ×2 (08:00)
[2021-11-15] MEDS: CLOPIDOGREL BISULFATE 75 MG TABLET PO SCH (08:01)
[2021-11-15] MEDS: CARVEDILOL 12.5 MG TABLET. PO SCH (08:01)
[2021-11-15] MEDS: PANTOPRAZOLE 40 MG TABLET.DR. PO SCH (08:01)
[2021-11-15] MEDS: SEVELAMER CARBONATE 800 MG TABLET. PO SCH ×2 (08:01→12:00)
[2021-11-15 08:02] VITALS: BP 176/73
[2021-11-15] MEDS: cloNIDine HCL 0.1 MG TABLET PO SCH ×2 (08:02→14:00)
[2021-11-15] MEDS: INSULIN LISPRO 300 UNITS/3 ML VIAL. SQ SCH ×2 (08:07→11:30)
[2021-11-15] MEDS: ONDANSETRON ODT 4 MG TAB.RAPDIS. PO PRN (08:48)
--- NOTE | 2021-11-15 08:49 | PDOC3 ---
IM DISCHARGE SUMMARY Date of Admission Date of Admission Date of Admission: Nov 09, 2021 at 19:57 Date of Discharge Date of Discharge 11/15/21 Primary Diagnosis Primary Diagnosis 1. Acute cerebrovascular accident with aphasia, status post TPA treatment. 2. Acute hypertensive crisis. 3. Diabetic ketoacidosis. 4. Fever, etiology not clear. 5. End-stage renal disease, on hemodialysis. 6. 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 7. Osteoarthritis, status post neck surgery and lumbar surgery and chronic pain. 8. Gastroesophageal reflux disease. 9. Coronary artery disease with history of stent placement. 10. Chronic hypoxic respiratory failure, on oxygen by nasal cannula 2 liters per minute. 11. Chronic obstructive pulmonary disease. 14. Mixed hyperlipidemia. 15. Chronic pancreatitis. 16. Anemia. 17. Physical deconditioning. 18. Cervical spinal stenosis and cervical radiculopathy with several neck surgeries. Consults Consults Giles Santo MD; Nicolas Rome MD; Luh Garcia MD; Pillo Aguilar MD; Aguilar Lee MD Labs Labs Laboratory Tests Test 11/14/21 11:14 11/14/21 16:47 11/14/21 20:38 11/15/21 06:20 Glucose (Fingerstick) 84 mg/dL (70-99) 62 mg/dL (70-99) L 137 mg/dL (70-99) H Sodium Level 137 mmol/L (136-145) Potassium Level 3.6 mmol/L (3.5-5.1) Chloride Level 99 mmol/L (98-107) Carbon Dioxide Level 31 mmol/L (21-32) Anion Gap 7 (6-14) Blood Urea Nitrogen 19 mg/dL (8-26) Creatinine 5.6 mg/dL (0.7-1.3) H Estimated GFR (Cockcroft-Gault) 12.9 Glucose Level 112 mg/dL (70-99) H Calcium Level 7.6 mg/dL (8.5-10.1) L Test 11/15/21 07:56 Glucose (Fingerstick) 165 mg/dL (70-99) H Laboratory Tests 11/15/21 06:20 Brief hospital course Brief hospital course This is a 56-year-old male who has a history of diabetes mellitus with diabetic nephropathy, neuropathy, COPD with end-stage renal disease, on hemodialysis with uncontrolled hypertension and chronic respiratory failure, on oxygen by nasal cannula 2 liters per minute, was noted to have acute aphasia and was admitted to the hospital. Prior to admission to the hospital 3 hours ago, he was normal. Because of the acute aphasia, Dr. Garner was consulted and the patient was given TPA. CT scan of head revealed small vessel ischemic disease. CT angiogram and MRI has been ordered. The patient was also noted to have a high blood sugar with initial reading of 687. Sodium was 123, potassium 3.2, BUN 19, creatinine 4.9, AST 12, ALT 20, albumin 2.5. Anion gap was 14 initially and CO2 was 22. The patient also was running a low-grade fever. WBC count was 7.3, hemoglobin 10.8. Acetone level was negative. INR 1.1. Chest x-ray, chronic interstitial changes. Because of the acute CVA and possibility of DKA, the patient was admitted for further evaluation and management. For more details regarding the past history, family history, social history, surgical history and other details, please refer to the H&P. 1. Acute CVA. The patient had TPA. Consulted Dr. Garner. Aphasia is better. CTA No intracranial large vessel occlusion. No stenosis of the cervical carotid or vertebral arteries, although not well evaluated at the skull base. Brain MRI 1. No evidence of acute intracranial hemorrhage, mass or acute infarct. 2. Mild chronic small vessel ischemic changes and atrophy. 3. Mild sinus disease. Patient is on ASA at home. Plavix added. Stop ASA after one month and continue Plavix. D/w . Hypoglycemia can also give similar symptoms. 2. Diabetes mellitus with very high sugars. Treated for DKA. He is not hypoglycemic. Anion gap is getting worse, so he was treated with insulin, but he is stable and the blood sugars are stable and I will discontinue insulin drip and put him on sliding scale insulin. Restart low dose Lantus. HbA1C 10.2. Hypoglycemia- He again had hypoglycemia yesterday. His oral intake is poor and he has hardly eaten any breakfast this morning. D/C Lantus..He was on 12 units daily at home previously. 3. End-stage renal disease, on hemodialysis. Consult Dr. Garcia for Nephrology evaluation and management. 4. Fever, etiology not clear. Order urinalysis and culture. Chest x-ray is negative. Negative blood cultures so far. Consult Dr. Aguilar for Infectious Disease evaluation and management. Started on empiric IV Vancomycin and Cefipime. U/a negative. Leukocytosis is improving.He is now off antibiotics. 5. Consult PT, OT, speech therapy evaluation and management. 6. Hypertensive crisis. Off Cardene drip. Consult cardiology. 7. Nausea,vomiting, hiccups. Hs GERD. BID IV Protonix. Consulted GI- . KUB ? minimal ileus. Better. Advance diet. Hypomagnesemia- replace Magnesium.. Long-term as well as short-term prognosis of this patient is very poor due to his multiple medical problems. Yesterday ,he became very weak and pale and then vomited. Discharge was held. This morning he feels weak and funny. He is unable to give any details. I had to again explain, what happened to him during the stay in the hospital. I have advised him to got to SNF and he is agreeable. Medications Medications reviewed and reconciled for discharge. Home Meds Active Scripts Lactobacillus Rhamnosus Gg (CULTURELLE) 1 Each Cap.sprink, 1 CAP PO BID for Antibiotic use for 15 Days, #30 CAP Prov:TRINA ALDANA MD 11/14/21 Clopidogrel Bisulfate (CLOPIDOGREL) 75 Mg Tablet, 75 MG PO DAILYWBKFT for CVA for 30 Days, #30 TAB 5 Refills Prov:TRINA ALDANA MD 11/14/21 Insulin Glargine,Hum.rec.anlog (LANTUS SOLOSTAR) 100 Unit/1 Ml Insuln.pen, 4 UNIT SQ DAILY for DM, #15 ML 3 Refills Hold if glucose less than 100 Prov:TRINA ALDANA MD 11/14/21 Ondansetron (ONDANSETRON ODT) 4 Mg Tab.rapdis, 1 TAB PO PRN Q6-8HRS PRN for NAUSEA, #16 TAB Prov:TRINA ALDANA MD 09/12/21 Clonidine Hcl (CLONIDINE HCL) 0.1 Mg Tablet, 0.1 MG PO TID for HTN for 30 Days, #90 TAB Prov:TRINA ALDANA MD 09/07/21 Insulin Lispro (Admelog) 100 Unit/1 Ml Vial, 0 UNITS SQ TIDBFRMEAL for DM for 30 Days, #1 EACH Use sliding scale at home. Prov:TRINA ALDANA MD 09/07/21 Amlodipine Besylate (AMLODIPINE BESYLATE) 10 Mg Tablet, 10 MG PO DAILY for HTN for 30 Days, #30 TAB 5 Refills Prov:TRINA ALDANA MD 09/07/21 Carvedilol (CARVEDILOL) 25 Mg Tablet, 25 MG PO BIDWMEALS for CARDIAC for 30 Days, #60 TAB 5 Refills Prov:TRINA ALDANA MD 09/07/21 Atorvastatin Calcium (ATORVASTATIN CALCIUM) 40 Mg Tablet, 40 MG PO QHS for Hype rlipidemia for 30 Days, #30 TAB 5 Refills Prov:TRINA ALDANA MD 09/07/21 Oxycodone/Apap 7.5-325 (PERCOCET 7.5-325 MG TABLET ) 1 Each Tablet, 1 TAB PO PRN Q6HRS PRN for PAIN, #40 TAB 0 Refills Prov:TRINA ALDANA MD 06/26/21 Methocarbamol (METHOCARBAMOL) 750 Mg Tablet, 750 MG PO PRN TID PRN for MUSCLE SPASMS for 10 Days, #30 TAB 1 Refill Prov:TRINA ALDANA MD 06/26/21 Baclofen (BACLOFEN) 10 Mg Tablet, 5 MG PO TID PRN for HICCUPS, #15 TAB Prov:TRINA ALDANA MD 04/25/21 Sevelamer Carbonate (RENVELA) 800 Mg Tablet, 800 MG PO TIDWMEALS for ESRD for 30 Days, #90 TAB 5 Refills Prov:TRINA ALDANA MD 07/04/20 Reported Medications Isosorbide Dinitrate (ISOSORBIDE DINITRATE) 30 Mg Tablet, 2 TAB PO DAILY for chest pain for 30 Days, #60 TAB 0 Refills 09/12/21 Trazodone Hcl (TRAZODONE HCL) 150 Mg Tablet, 150 MG PO HS for INSOMNIA, TAB 09/11/21 [place]-3 Fatty Acids/Fish Oil (FISH OIL 1,000 MG SOFTGEL) 1 Each Capsule, 1 CAP PO DAILY for supplement for 30 Days, #30 CAP 0 Refills 09/06/21 Omeprazole (OMEPRAZOLE) 40 Mg Capsule.dr, 1 CAP PO DAILY for reflux, #30 CAP 3 Refills 2/16/22 Lipase/Protease/Amylase (ZENPEP 10,000 UNITS CAPSULE) 1 Each Capsule.dr, 3 CAP PO TIDWMEALS for supplement, CAP 04/18/21 Doxazosin Mesylate (DOXAZOSIN MESYLATE) 4 Mg Tablet, 1 TAB PO DAILY for HTN, #30 TAB 5 Refills 04/18/21 Hydralazine Hcl (HYDRALAZINE HCL) 100 Mg Tablet, 1 TAB PO TID for , #90 TAB 5 Refills 06/29/20 Aspirin (ASPIR 81) 81 Mg Tablet.dr, 1 TAB PO DAILY for heart healthy 08/26/17 Discontinued Scripts Isosorbide Mononitrate (ISOSORBIDE MONONITRATE ER) 30 Mg Tab.er.24h, 1 TAB PO DAILY for blood pressure for 30 Days, #30 TAB 2 Refills Prov:PRESTON CALABRESE ROXI 09/07/21 Allergy Allergies Coded Allergies Type Severity Reaction Last Updated Verified morphine Allergy Intermediate Itching 09/09/21 Yes lisinopril Adverse Reaction Intermediate Dry Cough 09/09/21 Yes Follow up in 5 days. Comments Discharge Management - 35 minutes. For other details please refer to discharge instructions Justicifation of Admission Dx: Justifications for Admission: Justification of Admission Dx: N/A TRINA ALDANA MD Nov 15, 2021 08:49
--- NOTE | 2021-11-15 08:55 | SNU/HH DC ---
DISCHARGE ORDERS DISCHARGE INFORMATION: FINAL DIAGNOSIS Problems Medical Problems: (1) Acute hypokalemia Status: Acute (2) Aphasia due to acute stroke Status: Acute (3) Hyperglycemia due to type 2 diabetes mellitus Status: Acute (4) Hypertensive urgency Status: Acute CONDITION ON DISCHARGE: Stable DETENTION: SNF STAY <30 DAYS: Yes POST DISCHARGE ORDERS: ACTIVITY ORDERS: Activity as tolerated WEIGHT BEARING STATUS: No restrictions DIET AFTER DISCHARGE: Renal (ADA) WOUND/INCISION CARE: No wound care needed OTHER ORDERS: Fall precautions CHECKS AFTER DISCHARGE: CHECKS AFTER DISCHARGE: Check blood press - daily, Check blood sugar, ac/hs, Check your Temp as needed, Weigh Yourself Daily FOLLOW-UP: PHYSICIAN FOLLOW-UP: Dr.Pratip Aldana , 1 week after discharge ADDITIONAL FOLLOW-UP: Debate Director LAB ORDERS FOR FOLLOW-UP: CBC,CMP twice a week Additional Instructions: Monitor for hypoglycemia, hypoglycemia protocol. TREATMENT/EQUIPMENT ORDERS: ADAPTIVE EQUIPMENT NEEDED: None RESPIRATORY EQUIPMENT NEEDED: Oxygen (2-3 lit/min as needed) Physical Therapy For: Evalulation/Treatment Occupational Therapy For: Evaluation/Treatment Speech Language Pathology For: Evaluation/Treatment DISCHARGE MEDICATIONS: Home Meds Active Scripts Lactobacillus Rhamnosus Gg (CULTURELLE) 1 Each Cap.sprink, 1 CAP PO BID for Antibiotic use for 15 Days, #30 CAP Prov:TRINA ALDANA MD 11/14/21 Clopidogrel Bisulfate (CLOPIDOGREL) 75 Mg Tablet, 75 MG PO DAILYWBKFT for CVA for 30 Days, #30 TAB 5 Refills Prov:TRINA ALDANA MD 11/14/21 Ondansetron (ONDANSETRON ODT) 4 Mg Tab.rapdis, 1 TAB PO PRN Q6-8HRS PRN for NAUSEA, #16 TAB Prov:TRINA ALDANA MD 09/12/21 Clonidine Hcl (CLONIDINE HCL) 0.1 Mg Tablet, 0.1 MG PO TID for HTN for 30 Days, #90 TAB Prov:TRINA ALDANA MD 09/07/21 Insulin Lispro (Admelog) 100 Unit/1 Ml Vial, 0 UNITS SQ TIDBFRMEAL for DM for 30 Days, #1 EACH Use sliding scale at home. Prov:TRINA ALDANA MD 09/07/21 Amlodipine Besylate (AMLODIPINE BESYLATE) 10 Mg Tablet, 10 MG PO DAILY for HTN for 30 Days, #30 TAB 5 Refills Prov:TRINA ALDANA MD 09/07/21 Carvedilol (CARVEDILOL) 25 Mg Tablet, 25 MG PO BIDWMEALS for CARDIAC for 30 Days, #60 TAB 5 Refills Prov:TRINA ALDANA MD 09/07/21 Atorvastatin Calcium (ATORVASTATIN CALCIUM) 40 Mg Tablet, 40 MG PO QHS for Hyperlipidemia for 30 Days, #30 TAB 5 Refills Prov:TRINA ALDANA MD 09/07/21 Oxycodone/Apap 7.5-325 (PERCOCET 7.5-325 MG TABLET ) 1 Each Tablet, 1 TAB PO PRN Q6HRS PRN for PAIN, #40 TAB 0 Refills Prov:TRINA ALDANA MD 06/26/21 Methocarbamol (METHOCARBAMOL) 750 Mg Tablet, 750 MG PO PRN TID PRN for MUSCLE SPASMS for 10 Days, #30 TAB 1 Refill Prov:TRINA ALDANA MD 06/26/21 Baclofen (BACLOFEN) 10 Mg Tablet, 5 MG PO TID PRN for HICCUPS, #15 TAB Prov:TRINA ALDANA MD 04/25/21 Sevelamer Carbonate (RENVELA) 800 Mg Tablet, 800 MG PO TIDWMEALS for ESRD for 30 Days, #90 TAB 5 Refills Prov:TRINA ALDANA MD 07/04/20 Reported Medications Isosorbide Dinitrate (ISOSORBIDE DINITRATE) 30 Mg Tablet, 2 TAB PO DAILY for chest pain for 30 Days, #60 TAB 0 Refills 09/12/21 Trazodone Hcl (TRAZODONE HCL) 150 Mg Tablet, 150 MG PO HS for INSOMNIA, TAB 09/11/21 [place]-3 Fatty Acids/Fish Oil (FISH OIL 1,000 MG SOFTGEL) 1 Each Capsule, 1 CAP PO DAILY for supplement for 30 Days, #30 CAP 0 Refills 09/06/21 Omeprazole (OMEPRAZOLE) 40 Mg Capsule.dr, 1 CAP PO DAILY for reflux, #30 CAP 3 Refills 09/06/21 Lipase/Protease/Amylase (ZENPEP DR 10,000 UNITS CAPSULE) 1 Each Capsule.dr, 3 CAP PO TIDWMEALS for supplement, CAP 04/18/21 Doxazosin Mesylate (DOXAZOSIN MESYLATE) 4 Mg Tablet, 1 TAB PO DAILY for HTN, #30 TAB 5 Refills 04/18/21 Hydralazine Hcl (HYDRALAZINE HCL) 100 Mg Tablet, 1 TAB PO TID for , #90 TAB 5 Refills 06/29/20 Aspirin (ASPIR 81) 81 Mg Tablet.dr, 1 TAB PO DAILY for heart healthy 08/26/17 Discontinued Scripts Insulin Glargine,Hum.rec.anlog (LANTUS SOLOSTAR) 100 Unit/1 Ml Insuln.pen, 4 UNIT SQ DAILY for DM, #15 ML 3 Refills Hold if glucose less than 100 Prov:TRINA ALDANA MD 11/14/21 Isosorbide Mononitrate (ISOSORBIDE MONONITRATE ER) 30 Mg Tab.er.24h, 1 TAB PO DAILY for blood pressure for 30 Days, #30 TAB 2 Refills Prov:PRESTON CALABRESE APRN 09/07/21 TRINA ALDANA MD Nov 15, 2021 08:55
--- NOTE | 2021-11-15 09:57 | PDOC ---
PROGRESS NOTES Date of Service DATE: 11/15/21 TIME: 09:55 Assessment Problems Medical Problems: (1) Acute hypokalemia Status: Acute (2) Aphasia due to acute stroke Status: Acute (3) Hyperglycemia due to type 2 diabetes mellitus Status: Acute (4) Hypertensive urgency Status: Acute Was supposed to be discharged yesterday, discharge held because of nausea and chest discomfort Stroke symptoms, may have just been hyperglycemia and hypertension, status-post alteplase. MRI at 24 hours showed no new stroke, CT angiogram negative Echocardiogram bubble study positive for PFO/ASD. Plan Aspirin and Plavix. After a month the aspirin can be discontinued and Plavix continued monotherapy. Continue with atorvastatin Encouraged compliance with blood pressures, diabetes. Patient plans to follow-up with his collar baster regarding the PFO Subjective Complains of nausea and chest discomfort Objective Vital Signs Date Time Temp Pulse Resp B/P (MAP) Pulse Ox O2 Delivery O2 Flow Rate FiO2 11/15/21 08:02 67 176/73 11/15/21 07:50 Nasal Cannula 2.0 11/15/21 03:23 98.2 18 93 98.2 Intake and Output 11/15/21 07:00 Intake Total 250 ml Output Total 100 ml Balance 150 ml Intake Oral 250 ml Emesis 100 ml PHYSICAL EXAM Alert. Oriented to time, place and person. PERRL. EOMI. CN: no focal findings. Muscle tone: normal. Muscle strength: 5/5 DTR: 1+ Plantar reflex: Flexor Gait: not examined in bed. Sensory exam: no abnormal findings. No cerebellar signs elicited. Review of Relevant I have reviewed the following items donell (where applicable) has been applied. Labs Laboratory Tests Test 11/13/21 16:18 11/13/21 20:36 11/14/21 07:48 11/14/21 11:14 Glucose (Fingerstick) 211 mg/dL (70-99) 301 mg/dL (70-99) 230 mg/dL (70-99) 84 mg/dL (70-99) Test 11/14/21 16:47 11/14/21 20:38 11/15/21 06:20 11/15/21 07:56 Glucose (Fingerstick) 62 mg/dL (70-99) 137 mg/dL (70-99) 165 mg/dL (70-99) Sodium Level 137 mmol/L (136-145) Potassium Level 3.6 mmol/L (3.5-5.1) Chloride Level 99 mmol/L (98-107) Carbon Dioxide Level 31 mmol/L (21-32) Anion Gap 7 (6-14) Blood Urea Nitrogen 19 mg/dL (8-26) Creatinine 5.6 mg/dL (0.7-1.3) Estimated GFR (Cockcroft-Gault) 12.9 Glucose Level 112 mg/dL (70-99) Calcium Level 7.6 mg/dL (8.5-10.1) Laboratory Tests Test 11/14/21 11:14 11/14/21 16:47 11/14/21 20:38 11/15/21 06:20 Glucose (Fingerstick) 84 mg/dL (70-99) 62 mg/dL (70-99) 137 mg/dL (70-99) Sodium Level 137 mmol/L (136-145) Potassium Level 3.6 mmol/L (3.5-5.1) Chloride Level 99 mmol/L (98-107) Carbon Dioxide Level 31 mmol/L (21-32) Anion Gap 7 (6-14) Blood Urea Nitrogen 19 mg/dL (8-26) Creatinine 5.6 mg/dL (0.7-1.3) Estimated GFR (Cockcroft-Gault) 12.9 Glucose Level 112 mg/dL (70-99) Calcium Level 7.6 mg/dL (8.5-10.1) Test 11/15/21 07:56 Glucose (Fingerstick) 165 mg/dL (70-99) Microbiology 11/10/21 Blood Culture - Preliminary, Resulted NO GROWTH AFTER 4 DAYS Medications Current Medications Iohexol (Omnipaque 350 Mg/ml) 75 ml 1X ONCE IV ; Start 11/09/21 at 19:00; Stop 11/09/21 at 19:01; Status DC Info (CONTRAST GIVEN -- Rx MONITORING) 1 each PRN DAILY PRN MC SEE COMMENTS; Start 11/09/21 at 19:00; Stop 11/10/21 at 15:04; Status DC Sodium Chloride 250 ml @ 500 mls/hr 1X ONCE IV ; Start 11/09/21 at 19:15; Stop 11/09/21 at 19:44; Status DC Alteplase, Recombinant 5.4 ml @ 324 mls/hr 1X ONCE IV Last administered on 11/09/21at 20:20; Start 11/09/21 at 20:00; Stop 11/09/21 at 20:01; Status DC Alteplase, Recombinant 48.6 ml @ 48.6 mls/hr 1X ONCE IV Last administered on 11/09/21at 20:21; Start 11/09/21 at 20:00; Stop 11/09/21 at 20:59; Status DC Sodium Chloride 100 ml @ 100 mls/hr 1X ONCE IV Last administered on 11/09/21at 21:30; Start 11/09/21 at 20:00; Stop 11/09/21 at 20:59; Status DC Nicardipine HCl 50 mg/Sodium Chloride 250 ml @ 25 mls/hr CONT PRN PRN IV HYPERTENSION Last administered on 11/10/21at 01:36; Start 11/09/21 at 20:00; Stop 11/10/21 at 06:48; Status DC Insulin Human Regular 100 unit/ Sodium Chloride 101 ml @ 0 mls/hr 1X ONCE IV Last administered on 11/10/21at 00:24; Start 11/09/21 at 20:15; Stop 11/09/21 at 20:16; Status DC Labetalol HCl (Normodyne Iv Push) 10 mg 1X ONCE IVP Last administered on at 20:40; Start 11/09/21 at 20:15; Stop 11/09/21 at 20:16; Status DC Labetalol HCl (Normodyne Iv Push) 20 mg STK-MED ONCE IVP ; Start 11/09/21 at 20:05; Stop 11/09/21 at 20:05; Status DC Potassium Chloride (Klor-Con) 40 meq 1X ONCE PO ; Start 11/09/21 at 20:30; Stop 11/09/21 at 20:31; Status DC Ondansetron HCl (Zofran) 4 mg PRN Q8HRS PRN IVP NAUSEA/VOMITING Last administered on 11/09/21at 23:33; Start 11/09/21 at 20:30; Stop 11/10/21 at 06:48; Status DC Labetalol HCl (Normodyne Iv Push) 10 mg 1X ONCE IVP Last administered on 11/09/21at 18:05; Start 11/09/21 at 20:30; Stop 11/09/21 at 20:31; Status DC Insulin Human Lispro (HumaLOG) 15 units 1X ONCE SQ ; Start 11/09/21 at 21:30; Stop 11/09/21 at 21:31; Status DC Sodium Chloride 1,000 ml @ 125 mls/hr Q8H IV ; Start 11/10/21 at 00:00; Stop 11/10/21 at 09:59; Status DC Dextrose/Sodium Chloride 1,000 ml @ 125 mls/hr Q8H IV ; Start 11/10/21 at 00:00; Stop 11/10/21 at 09:59; Status DC Insulin Human Regular 100 unit/ Sodium Chloride 101 ml @ 0 mls/hr CONT PRN PRN IV PER PROTOCOL; Start 11/10/21 at 00:00; Stop 11/10/21 at 09:19; Status DC Potassium Chloride/Water 100 ml @ 100 mls/hr PRN Q1HR PRN IV SEE COMMENTS Last administered on 11/10/21at 03:41; Start 11/10/21 at 00:00 Potassium Chloride/Water 100 ml @ 100 mls/hr PRN Q1HR PRN IV SEE COMMENTS; Start 11/10/21 at 00:00 Potassium Chloride/Water 100 ml @ 100 mls/hr PRN Q1HR PRN IV SEE COMMENTS Last administered on 11/10/21at 12:45; Start 11/10/21 at 00:00 Magnesium Sulfate 100 ml @ 25 mls/hr DAILY IV Last administered on 11/11/21at 09:49; Start 11/10/21 at 09:00; Stop 11/13/21 at 08:59; Status DC Sodium Chloride 1,000 ml @ 125 mls/hr Q8H IV Last administered on 11/10/21at 00:44; Start 11/10/21 at 00:45; Stop 11/10/21 at 10:07; Status DC Dextrose/Sodium Chloride 1,000 ml @ 125 mls/hr Q8H IV Last administered on 11/10/21at 03:41; Start 11/10/21 at 03:45; Stop 11/10/21 at 09:59; Status DC Nicardipine HCl (Cardene) 50 mg STK-MED ONCE IV ; Start 11/09/21 at 21:00; Stop 11/10/21 at 04:38; Status DC Sodium Chloride (Iv Sodium Chloride 0.9% 250ml) 250 ml STK-MED ONCE .ROUTE ; Start 11/09/21 at 21:00; Stop 11/10/21 at 04:38; Status DC Sodium Chloride (Iv Sodium Chloride 0.9% 100ml) 100 ml STK-MED ONCE .ROUTE ; Start 11/09/21 at 21:00; Stop 11/10/21 at 04:38; Status DC Labetalol HCl (Normodyne Iv Push) 10 mg PRN Q10MIN PRN IVP HYPERTENSION Last administered on 11/10/21at 13:43; Start 11/10/21 at 06:45 Nicardipine HCl 50 mg/Sodium Chloride 250 ml @ 25 mls/hr CONT PRN PRN IV HYPERTENSION Last administered on 11/11/21at 03:26; Start 11/10/21 at 06:45 Acetaminophen (Tylenol) 650 mg PRN Q6HRS PRN PO MILD PAIN / TEMP > 100.3'F; Start 11/10/21 at 06:45; Status Cancel Acetaminophen (Tylenol Supp) 650 mg PRN Q6HRS PRN NC MILD PAIN / TEMP > 100.3'F; Start 11/10/21 at 06:45 Ondansetron HCl (Zofran) 4 mg PRN Q6HRS PRN IVP NAUSEA/VOMITING 1ST CHOICE Last administered on 11/14/21at 18:05; Start 11/10/21 at 06:45 Fentanyl Citrate (Fentanyl 2ml Vial) 50 mcg PRN Q2HR PRN IVP PAIN Last administered on 11/14/21at 11:59; Start 11/10/21 at 08:30 Iohexol (Omnipaque 300 Mg/ml) 75 ml 1X ONCE IV Last administered on 11/10/21at 08:56; Start 11/10/21 at 08:30; Stop 11/10/21 at 08:31; Status DC Info (CONTRAST GIVEN -- Rx MONITORING) 1 each PRN DAILY PRN MC SEE COMMENTS; Start 11/10/21 at 08:45; Stop 11/12/21 at 08:44; Status DC Amlodipine Besylate (Norvasc) 10 mg DAILY PO Last administered on 11/15/21at 08:02; Start 11/10/21 at 09:00 Atorvastatin Calcium (Lipitor) 40 mg QHS PO Last administered on 11/14/21 20:55; Start 11/10/21 at 21:00 Clonidine HCl (Catapres) 0.1 mg TID PO Last administered on 11/15/21 08:02; Start 11/10/21 at 09:00 Doxazosin Mesylate (Cardura) 4 mg DAILY PO Last administered on 11/15/21 08:00; Start 11/10/21 at 09:00 Amylase/Lipase/ Protease (Zenpep 10,000) 3 cap TIDWMEALS PO Last administered on 11/15/21 07:59; Start 11/10/21 at 09:00 Methocarbamol (Robaxin) 750 mg PRN TID PRN PO MUSCLE SPASMS Last administered on 11/13/21 19:47; Start 11/10/21 at 09:00 Ondansetron HCl (Zofran Odt) 4 mg TID PRN PO NAUSEA Last administered on 11/15/21 08:48; Start 11/10/21 at 09:00 Oxycodone/ Acetaminophen (Percocet 7.5/ 325) 1 tab PRN Q6HRS PRN PO MODERATE TO SEVERE PAIN Last administered on 11/14/21 21:07; Start 11/10/21 at 09:00 Sevelamer Carbonate (Renvela) 800 mg TIDWMEALS PO Last administered on 11/15/21 08:01; Start 11/10/21 at 09:30 Carvedilol (Coreg) 25 mg BIDWMEALS PO Last administered on 11/15/21 08:01; Start 11/10/21 at 09:30 Hydralazine HCl (Apresoline) 100 mg TID PO Last administered on 11/15/21 0 8:00; Start 11/10/21 at 09:30 Isosorbide Mononitrate (Imdur) 60 mg DAILY PO Last administered on 11/15/21 07:59; Start 11/10/21 at 09:30 Pantoprazole Sodium (Protonix) 40 mg DAILYAC PO ; Start 11/10/21 at 09:30; Stop 11/10/21 at 14:29; Status DC Trazodone HCl (Desyrel) 150 mg HS PO Last administered on 11/14/21at 20:57; Start 11/10/21 at 21:00 Acetaminophen (Tylenol) 650 mg PRN Q6HRS PRN PO MILD PAIN / TEMP > 100.3'F; Start 11/10/21 at 09:00 Insulin Human Lispro (HumaLOG) 0-8 UNITS TIDBFRMEAL SQ Last administered on 11/15/21 08:07; Start 11/10/21 at 11:30 Baclofen (Lioresal) 5 mg TID PRN PO MUSCLE SPASMS Last administered on 11/13/21at 15:09; Start 11/10/21 at 09:30 Prochlorperazine Edisylate (Compazine) 10 mg PRN Q6HRS PRN IV NAUSEA/VOMITING, 2ND CHOICE Last administered on 11/10/21at 13:12; Start 11/10/21 at 11:15 Vancomycin HCl (Vanco Per Pharmacy) 1 each PRN DAILY PRN MC SEE COMMENTS Last administered on 11/14/21at 09:08; Start 11/10/21 at 11:15; Stop 11/14/21 at 13:16; Status DC Cefepime HCl (Maxipime) 1 gm Q24H IVP Last administered on 11/14/21at 11:59; Start 11/10/21 at 12:00; Stop 11/14/21 at 13:13; Status DC Vancomycin HCl 1.5 gm/Sodium Chloride 500 ml @ 250 mls/hr 1X ONCE IV Last administered on 11/10/21at 13:35; Start 11/10/21 at 13:00; Stop 11/10/21 at 14:59; Status DC Potassium Chloride/Water 100 ml @ 100 mls/hr Q1H IV Last administered on 11/10/21at 18:00; Start 11/10/21 at 13:00; Stop 11/10/21 at 18:59; Status DC Pantoprazole Sodium (PROTONIX VIAL for IV PUSH) 40 mg 1X ONCE IVP Last administered on 11/10/21at 13:19; Start 11/10/21 at 13:30; Stop 11/10/21 at 13:31; Status DC Hydralazine HCl (Apresoline Inj) 20 mg PRN Q4HRS PRN IVP ELEVATED BP, SEE COMMENTS Last administered on 11/10/21at 18:52; Start 11/10/21 at 14:30 Pantoprazole Sodium (PROTONIX VIAL for IV PUSH) 40 mg DAILYAC IVP ; Start 11/11/21 at 07:30; Stop 11/10/21 at 14:32; Status DC Pantoprazole Sodium (PROTONIX VIAL for IV PUSH) 40 mg BIDAC IVP Last administered on 11/12/21at 16:34; Start 11/10/21 at 16:30; Stop 11/13/21 at 10:05; Status DC Vancomycin HCl (Vancomycin Random Level) 1 each 1X ONCE MC Last administered on 11/12/21at 05:00; Start 11/12/21 at 05:00; Stop 11/12/21 at 05:01; Status DC Sodium Chloride 1,000 ml @ 1,000 mls/hr Q1H PRN IV hypotension; Start 11/10/21 at 17:00; Stop 11/10/21 at 22:59; Status DC Albumin Human 200 ml @ 200 mls/hr 1X PRN PRN IV Hypotension; Start 11/10/21 at 17:00; Stop 11/10/21 at 22:59; Status DC Sodium Chloride 1,000 ml @ 400 mls/hr Q2H30M PRN IV PATENCY; Start 11/10/21 at 17:00; Stop 11/11/21 at 04:59; Status DC Info (PHARMACY MONITORING -- do not chart) 1 each PRN DAILY PRN MC SEE COMMENTS; Start 11/10/21 at 17:00; Stop 11/10/21 at 16:51; Status DC Info (PHARMACY MONITORING -- do not chart) 1 each PRN DAILY PRN MC SEE NANCY NTS; Start 11/10/21 at 17:00; Status Cancel Insulin Glargine (Lantus Syringe) 6 unit DAILY10 SQ Last administered on 11/12/21at 10:00; Start 11/11/21 at 10:00; Stop 11/13/21 at 08:34; Status DC Heparin Sodium (Porcine) (Heparin Sodium) 5,000 unit Q8HRS SQ Last administered on 11/15/21at 06:18; Start 11/11/21 at 14:00 Epoetin Jose (PROCRIT for DIALYSIS PTS) 10,000 unit 3X/WEEK ONCE SQ Last administered on 11/13/21at 15:21; Start 11/13/21 at 09:00; Stop 11/13/21 at 09:01; Status DC Vancomycin HCl 750 mg/Sodium Chloride 250 ml @ 250 mls/hr 1X ONCE IV Last administered on 11/12/21at 11:14; Start 11/12/21 at 10:00; Stop 11/12/21 at 10:59; Status DC Vancomycin HCl 500 mg/Sodium Chloride 100 ml @ 100 mls/hr QMWF IV Last administered on 11/13/21at 15:36; Start 11/13/21 at 16:00; Stop 11/14/21 at 13:13; Status DC Lactobacillus Rhamnosus (Culturelle) 1 cap BID PO Last administered on 11/15/21at 07:59; Start 11/12/21 at 21:00 Aspirin (Ecotrin) 81 mg DAILYWBKFT PO Last administered on 11/15/21at 07:59; Start 11/12/21 at 17:45 Clopidogrel Bisulfate (Plavix) 75 mg DAILYWBKFT PO Last administered on 11/15/21at 08:01; Start 11/12/21 at 17:45 Sodium Chloride 1,000 ml @ 1,000 mls/hr Q1H PRN IV hypotension; Start 11/13/21 at 08:00; Stop 11/13/21 at 13:59; Status DC Sodium Chloride 1,000 ml @ 400 mls/hr Q2H30M PRN IV PATENCY; Start 11/13/21 at 08:00; Stop 11/13/21 at 19:59; Status DC Info (PHARMACY MONITORING -- do not chart) 1 each PRN DAILY PRN MC SEE COMMENTS Last administered on 11/14/21at 09:04; Start 11/13/21 at 08:00 Insulin Glargine (Lantus Syringe) 4 unit DAILY10 SQ Last administered on 11/14/21at 10:45; Start 11/13/21 at 10:00; Stop 11/15/21 at 08:48; Status DC Pantoprazole Sodium (Protonix) 40 mg DAILYAC PO Last administered on 11/15/21at 08:01; Start 11/14/21 at 07:30 Insulin Glargine (Lantus Syringe) 4 unit DAILY10 SQ ; Start 11/14/21 at 10:00; Stop 11/14/21 at 08:24; Status DC Barium Sulfate (Varibar Thin Liquid Apple) 148 gm 1X ONCE PO Last administered on 11/14/21at 10:33; Start 11/14/21 at 10:30; Stop 11/14/21 at 10:31; Status DC Sodium Chloride 1,000 ml @ 1,000 mls/hr Q1H PRN IV hypotension; Start 11/15/21 at 08:00; Stop 11/15/21 at 13:59 Albumin Human 200 ml @ 200 mls/hr 1X PRN PRN IV Hypotension; Start 11/15/21 at 08:00; Stop 11/15/21 at 13:59 Sodium Chloride 1,000 ml @ 400 mls/hr Q2H30M PRN IV PATENCY; Start 11/15/21 at 08:00; Stop 11/15/21 at 19:59 Info (PHARMACY MONITORING -- do not chart) 1 each PRN DAILY PRN MC SEE COMMENTS; Start 11/15/21 at 08:00; Status UNV Info (PHARMACY MONITORING -- do not chart) 1 each PRN DAILY PRN MC SEE COMMENTS; Start 11/15/21 at 08:00 Active Scripts Active Culturelle (Lactobacillus Rhamnosus Gg) 1 Each Cap.sprink 1 Cap PO BID 15 Days Clopidogrel (Clopidogrel Bisulfate) 75 Mg Tablet 75 Mg PO DAILYWBKFT 30 Days Ondansetron Odt (Ondansetron) 4 Mg Tab.rapdis 1 Tab PO PRN Q6-8HRS PRN Clonidine Hcl 0.1 Mg Tablet 0.1 Mg PO TID 30 Days Admelog (Insulin Lispro) 100 Unit/1 Ml Vial 0 Units SQ TIDBFRMEAL 30 Days Use sliding scale at home. Amlodipine Besylate 10 Mg Tablet 10 Mg PO DAILY 30 Days Carvedilol 25 Mg Tablet 25 Mg PO BIDWMEALS 30 Days Atorvastatin Calcium 40 Mg Tablet 40 Mg PO QHS 30 Days Percocet 7.5-325 Mg Tablet (Oxycodone/Acetaminophen) 1 Each Tablet 1 Tab PO PRN Q6HRS PRN Methocarbamol 750 Mg Tablet 750 Mg PO PRN TID PRN 10 Days Baclofen 10 Mg Tablet 5 Mg PO TID PRN Renvela (Sevelamer Carbonate) 800 Mg Tablet 800 Mg PO TIDWMEALS 30 Days Reported Isosorbide Dinitrate 30 Mg Tablet 2 Tab PO DAILY 30 Days Trazodone Hcl 150 Mg Tablet 150 Mg PO HS Fish Oil 1,000 Mg Softgel (Lamar-3 Fatty Acids/Fish Oil) 1 Each Capsule 1 Cap PO DAILY 30 Days Omeprazole 40 Mg Capsule. 1 Cap PO DAILY Zenpep 10,000 Units Capsule (Lipase/Protease/Amylase) 1 Each Capsule.dr 3 Cap PO TIDWMEALS Doxazosin Mesylate 4 Mg Tablet 1 Tab PO DAILY Hydralazine Hcl 100 Mg Tablet 1 Tab PO TID Aspir 81 (Aspirin) 81 Mg Tablet. 1 Tab PO DAILY Vitals/I & O Vital Sign - Last 24 Hours 11/14/21 11/14/21 11/14/21 11/14/21 11:00 11:59 12:35 14:17 Temp 97.3 97.3 Pulse 59 59 Resp 18 B/P (MAP) 167/77 (107) 169/107 Pulse Ox 95 O2 Delivery Room Air Room Air Room Air 11/14/21 11/14/21 11/14/21 11/14/21 14:17 14:37 17:06 19:00 Temp 97.9 98.7 97.9 98.7 Pulse 59 59 63 60 Resp 17 18 B/P (MAP) 149/107 172/72 (105) 190/77 196/93 (127) Pulse Ox 90 95 O2 Delivery Room Air 11/14/21 11/14/21 11/14/21 11/14/21 20:17 20:56 20:57 21:07 Pulse 64 64 B/P (MAP) 193/86 195/86 Pulse Ox 90 O2 Delivery Room Air Room Air 11/14/21 11/14/21 11/15/21 11/15/21 21:37 23:56 03:23 07:50 Temp 98.2 98.2 98.2 98.2 Pulse 59 64 Resp 16 18 B/P (MAP) 172/77 (108) 161/68 (99) Pulse Ox 91 93 O2 Delivery Room Air Nasal Cannula Nasal Cannula O2 Flow Rate 2.0 11/15/21 11/15/21 11/15/21 11/15/21 07:59 08:00 08:00 08:01 Pulse 67 67 67 67 B/P (MAP) 176/73 176/73 176/73 176/73 4/27/22 4/27/22 08:02 08:02 Pulse 67 67 B/P (MAP) 176/73 176/73 Intake and Output 11/14/21 11/14/21 11/15/21 15:00 23:00 07:00 Intake Total 250 ml Output Total 100 ml Balance -100 ml 250 ml Justicifation of Admission Dx: Justifications for Admission: Justification of Admission Dx: N/A AKIN ALEXANDER MD Nov 15, 2021 09:57
--- NOTE | 2021-11-15 10:02 | PDOC ---
DATE OF SERVICE DATE: 11/15/21 TIME: 10:02 SUBJECTIVE ROS discharge held because of nausea and chest discomfort. Seen during dialysis, still c/o some discomfort, Lt Lower chest OBJECTIVE Vital Signs Vital Signs Date Time Temp Pulse Resp B/P (MAP) Pulse Ox O2 Delivery O2 Flow Rate FiO2 11/15/21 08:02 67 176/73 11/15/21 07:50 Nasal Cannula 2.0 11/15/21 03:23 98.2 18 93 98.2 I & 0 Intake and Output 11/15/21 07:00 Intake Total 250 ml Output Total 100 ml Balance 150 ml Intake Oral 250 ml Emesis 100 ml PHYSICAL EXAM Physical Exam General: NAD , Lying in bed HEENT:Normocephalic andatraumatic. OM moist Neck:Supple without bruit, no meningismus Lungs CTA , Non labored CV S1S2 Abd Soft, NT , BS + Integum- No Rash Ext No LE edema Neuro- Grossly Normal, Moving all 4 extrem. Aphasia resolved No Bob, No SP pr CVA tenderness DIAGNOSIS/ASSESSMENT Assessment & Plan ESRD On HD MWF Seen on dialysis, tolerating well. Continue as ordered. Smooth PIRES Acute cerebrovascular accident with aphasia, status post TPA treatment Per neurology may have just been hyperglycemia and hypertension, status-post alteplase. MRI at 24 hours showed no new stroke, CT angiogram negative Acute hypertensive crisis- Renal Doppler in Aug 2019, No e/o JOSELYN . On multiple meds including . Card manages Diabetic ketoacidosis. HypoNatremia- Chronic. History of severe Apr 2021 Na to 118 . Na improved since we dced Mirtazipine . 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 PFO he will follow up with Dr. Campo at [facility] and discuss about future closure . CAD s/p PCI/stent to the LCx; [facility] 01/09 showed patent LCx stent and no lesions needing intervention. Follows with MACDr. Campo. Chronic hypoxic respiratory failure, on oxygen by nasal cannula 2 liters per minute. Chronic obstructive pulmonary disease. History of prostate cancer.s/p Radiation treatment Hx of COVID 19 Pneumonia Chronic pancreatitis. COMMENT/RELEVANT DATA Meds Current Medications Medications (Trade) Dose Ordered Sig/Ravinder Start Time Stop Time Status Last Admin Dose Admin Acetaminophen (Tylenol Supp) 650 mg PRN Q6HRS PRN 11/10/21 06:45 Acetaminophen (Tylenol) 650 mg PRN Q6HRS PRN 11/10/21 09:00 Albumin Human 200 ml @ 200 mls/hr 1X PRN PRN 11/15/21 08:00 11/15/21 13:59 Alteplase, Recombinant 48.6 ml @ 48.6 mls/hr 1X ONCE 11/09/21 20:00 11/09/21 20:59 DC 11/09/21 20:21 48.6 MLS/HR Amlodipine Besylate (Norvasc) 10 mg DAILY 11/10/21 09:00 11/15/21 08:02 10 MG Amylase/Lipase/ Protease (Zenpep 10,000) 3 cap TIDWMEALS 11/10/21 09:00 11/15/21 07:59 3 CAP Aspirin (Ecotrin) 81 mg DAILYWBKFT 11/12/21 17:45 11/15/21 07:59 81 MG Atorvastatin Calcium (Lipitor) 40 mg QHS 11/10/21 21:00 11/14/21 20:55 40 MG Baclofen (Lioresal) 5 mg TID PRN 11/10/21 09:30 11/13/21 15:09 5 MG Barium Sulfate (Varibar Thin Liquid Apple) 148 gm 1X ONCE 11/14/21 10:30 11/14/21 10:31 DC 11/14/21 10:33 148 GM Carvedilol (Coreg) 25 mg BIDWMEALS 11/10/21 09:30 11/15/21 08:01 25 MG Cefepime HCl (Maxipime) 1 gm Q24H 11/10/21 12:00 11/14/21 13:13 DC 11/14/21 11:59 1 GM Clonidine HCl (Catapres) 0.1 mg TID 11/10/21 09:00 11/15/21 08:02 0.1 MG Clopidogrel Bisulfate (Plavix) 75 mg DAILYWBKFT 11/12/21 17:45 11/15/21 08:01 75 MG Dextrose/Sodium Chloride 1,000 ml @ 125 mls/hr Q8H 11/10/21 03:45 11/10/21 09:59 DC 11/10/21 03:41 125 MLS/HR Doxazosin Mesylate (Cardura) 4 mg DAILY 4/22/22 09:00 11/15/21 08:00 4 MG Epoetin Jose (PROCRIT for DIALYSIS PTS) 10,000 unit 3X/WEEK ONCE 11/13/21 09:00 11/13/21 09:01 DC 11/13/21 15:21 10,000 UNIT Fentanyl Citrate (Fentanyl 2ml Vial) 50 mcg PRN Q2HR PRN 11/10/21 08:30 11/14/21 11:59 50 MCG Heparin Sodium (Porcine) (Heparin Sodium) 5,000 unit Q8HRS 11/11/21 14:00 11/15/21 06:18 5,000 UNIT Hydralazine HCl (Apresoline Inj) 20 mg PRN Q4HRS PRN 11/10/21 14:30 11/10/21 18:52 20 MG Hydralazine HCl (Apresoline) 100 mg TID 11/10/21 09:30 11/15/21 08:00 100 MG Info (CONTRAST GIVEN -- Rx MONITORING) 1 each PRN DAILY PRN 11/10/21 08:45 11/12/21 08:44 DC Info (PHARMACY MONITORING -- do not chart) 1 each PRN DAILY PRN 11/15/21 08:00 Insulin Glargine (Lantus Syringe) 4 unit DAILY10 11/14/21 10:00 11/14/21 08:24 DC Insulin Human Lispro (HumaLOG) 0-8 UNITS TIDBFRMEAL 11/10/21 11:30 11/15/21 08:07 2 UNITS Insulin Human Regular 100 unit/ Sodium Chloride 101 ml @ 0 mls/hr CONT PRN PRN 11/10/21 00:00 11/10/21 09:19 DC Iohexol (Omnipaque 300 Mg/ml) 75 ml 1X ONCE 11/10/21 08:30 11/10/21 08:31 DC 11/10/21 08:56 75 ML Iohexol (Omnipaque 350 Mg/ml) 75 ml 1X ONCE 11/09/21 19:00 11/09/21 19:01 DC Isosorbide Mononitrate (Imdur) 60 mg DAILY 11/10/21 09:30 11/15/21 07:59 60 MG Labetalol HCl (Normodyne Iv Push) 10 mg PRN Q10MIN PRN 11/10/21 06:45 11/10/21 13:43 10 MG Lactobacillus Rhamnosus (Culturelle) 1 cap BID 11/12/21 21:00 11/15/21 07:59 1 CAP Magnesium Sulfate 100 ml @ 25 mls/hr DAILY 11/10/21 09:00 11/13/21 08:59 DC 11/11/21 09:49 25 MLS/HR Methocarbamol (Robaxin) 750 mg PRN TID PRN 11/10/21 09:00 11/13/21 19:47 750 MG Nicardipine HCl (Cardene) 50 mg STK-MED ONCE 11/09/21 21:00 11/10/21 04:38 DC Nicardipine HCl 50 mg/Sodium Chloride 250 ml @ 25 mls/hr CONT PRN PRN 11/10/21 06:45 11/11/21 03:26 25 MLS/HR Ondansetron HCl (Zofran Odt) 4 mg TID PRN 11/10/21 09:00 11/15/21 08:48 4 MG Ondansetron HCl (Zofran) 4 mg PRN Q6HRS PRN 11/10/21 06:45 11/14/21 18:05 4 MG Oxycodone/ Acetaminophen (Percocet 7.5/ 325) 1 tab PRN Q6HRS PRN 11/10/21 09:00 11/14/21 21:07 1 TAB Pantoprazole Sodium (PROTONIX VIAL for IV PUSH) 40 mg BIDAC 11/10/21 16:30 11/13/21 10:05 DC 11/12/21 16:34 40 MG Pantoprazole Sodium (Protonix) 40 mg DAILYAC 11/14/21 07:30 11/15/21 08:01 40 MG Potassium Chloride/Water 100 ml @ 100 mls/hr Q1H 11/10/21 13:00 11/10/21 18:59 DC 11/10/21 18:00 100 MLS/HR Potassium Chloride (Klor-Con) 40 meq 1X ONCE 11/09/21 20:30 11/09/21 20:31 DC Prochlorperazine Edisylate (Compazine) 10 mg PRN Q6HRS PRN 11/10/21 11:15 11/10/21 13:12 10 MG Sevelamer Carbonate (Renvela) 800 mg TIDWMEALS 11/10/21 09:30 11/15/21 08:01 800 MG Sodium Chloride 1,000 ml @ 400 mls/hr Q2H30M PRN 11/15/21 08:00 11/15/21 19:59 Sodium Chloride (Iv Sodium Chloride 0.9% 100ml) 100 ml STK-MED ONCE 11/09/21 21:00 11/10/21 04:38 DC Sodium Chloride (Iv Sodium Chloride 0.9% 250ml) 250 ml STK-MED ONCE 11/09/21 21:00 11/10/21 04:38 DC Trazodone HCl (Desyrel) 150 mg HS 11/10/21 21:00 11/14/21 20:57 150 MG Vancomycin HCl (Vanco Per Pharmacy) 1 each PRN DAILY PRN 11/10/21 11:15 11/14/21 13:16 DC 11/14/21 09:08 1 EACH Vancomycin HCl (Vancomycin Random Level) 1 each 1X ONCE 11/12/21 05:00 11/12/21 05:01 DC 11/12/21 05:00 1 EACH Vancomycin HCl 1.5 gm/Sodium Chloride 500 ml @ 250 mls/hr 1X ONCE 11/10/21 13:00 11/10/21 14:59 DC 11/10/21 13:35 250 MLS/HR Vancomycin HCl 500 mg/Sodium Chloride 100 ml @ 100 mls/hr QMWF 11/13/21 16:00 11/14/21 13:13 DC 11/13/21 15:36 100 MLS/HR Vancomycin HCl 750 mg/Sodium Chloride 250 ml @ 250 mls/hr 1X ONCE 11/12/21 10:00 11/12/21 10:59 DC 11/12/21 11:14 250 MLS/HR Lab Laboratory Tests Test 11/14/21 11:14 11/14/21 16:47 11/14/21 20:38 11/15/21 06:20 Glucose (Fingerstick) 84 mg/dL (70-99) 62 mg/dL (70-99) 137 mg/dL (70-99) Sodium Level 137 mmol/L (136-145) Potassium Level 3.6 mmol/L (3.5-5.1) Chloride Level 99 mmol/L (98-107) Carbon Dioxide Level 31 mmol/L (21-32) Anion Gap 7 (6-14) Blood Urea Nitrogen 19 mg/dL (8-26) Creatinine 5.6 mg/dL (0.7-1.3) Estimated GFR (Cockcroft-Gault) 12.9 Glucose Level 112 mg/dL (70-99) Calcium Level 7.6 mg/dL (8.5-10.1) Test 11/15/21 07:56 Glucose (Fingerstick) 165 mg/dL (70-99) Results All relevant outside records, renal labs, imaging studies, telemetry/EKG's were reviewed. Justicifation of Admission Dx: Justifications for Admission: Justification of Admission Dx: N/A CARLO CHAUHAN MD Nov 15, 2021 10:02
--- NOTE | 2021-11-15 10:28 | PDOC ---
Date of Service: DATE: 11/15/21 TIME: 10:26 Subjective: Subjective: Eating 25% of meals. Stomach is "irritated" like heartburn. Objective: Vital Signs: Vital Signs Date Time Temp Pulse Resp B/P (MAP) Pulse Ox O2 Delivery O2 Flow Rate FiO2 11/15/21 08:02 67 176/73 11/15/21 07:50 Nasal Cannula 2.0 11/15/21 03:23 98.2 18 93 98.2 Labs: Laboratory Tests Test 11/14/21 11:14 11/14/21 16:47 11/14/21 20:38 11/15/21 06:20 Glucose (Fingerstick) 84 mg/dL 62 mg/dL 137 mg/dL Sodium Level 137 mmol/L Potassium Level 3.6 mmol/L Chloride Level 99 mmol/L Carbon Dioxide Level 31 mmol/L Anion Gap 7 Blood Urea Nitrogen 19 mg/dL Creatinine 5.6 mg/dL Estimated GFR (Cockcroft-Gault) 12.9 Glucose Level 112 mg/dL Calcium Level 7.6 mg/dL Test 11/15/21 07:56 Glucose (Fingerstick) 165 mg/dL Imaging: KUB Impression: 1. Nonobstructed bowel gas pattern. 2. Moderate colonic stool burden. Videoswallow Impression: 1. No aspiration. 2. Penetration with thin consistency utilizing a straw. Initial Videoswallow Study Report Oropharyngeal swallow grossly WFLs w/exception of deep penetration of thin VIA STRAW. Penetration during swallow of straw drinks to the vocal folds w/poss trace aspiration. Cup drinks were safe over multiple trials. Would avoid straws and con't regular diet. IMPRESSIONS: Mild oropharyngeal dysphagia w/deep penetration and moderate risk of aspiration associated w/straw drinks of thin liquids. Other consistencies appeared safe. Minimally reduced airway closure appeared to contribute to penet ration of thin via straw. Etiology of this is unclear. RECOMMENDATIONS: Con't regular diet, thin liquids. No straws. General pre cautions. DW pt and MARIELA Gallardo re:findings and recs. Full rpt to follow in interventions section. PE: GEN: NAD, dialyzing LUNGS: CTAB HEART: RRR ABD: NABS, S/ND/NT NEURO/PSYCH: A & O 3 A/P: Suspected stroke Upper abd pain/dyspepsia H/o GERD, chronic pancreatitis HTN, ESRD on HD, DM -- Try PPI BID. Justicifation of Admission Dx: Justifications for Admission: Justification of Admission Dx: N/A KIMMY MARAVILLA Nov 15, 2021 10:28
[2021-11-15] MEDS ORDERED: POLYETHYLENE GLYCOL 3350 17 GM PACKET. PO PRN (10:30)
[2021-11-15] MEDS ORDERED: BISACODYL 5 MG TABLET.DR. PO PRN (10:30)
--- NOTE | 2021-11-15 12:22 | PDOC ---
Infectious Disease Note Subjective Subjective Patient feels better Though did have some nausea vomiting ROS ROS no n/v/d/ Vital Sign Vital Signs Vital Signs Date Time Temp Pulse Resp B/P (MAP) Pulse Ox O2 Delivery O2 Flow Rate FiO2 11/15/21 08:02 67 176/73 11/15/21 07:50 Nasal Cannula 2.0 11/15/21 07:00 98.9 18 98.9 11/15/21 03:23 93 Physical Exam PHYSICAL EXAM GENERAL: Alert oriented x3 male in no acute distress looks better HEENT: Both pupils are round and reacting. No conjunctival lesion. No oral lesion. NECK: Supple, no JVP, LUNGS: Clear. Chest wall costochondral pain on the left chest site HEART: S1, S2, regular. ABDOMEN: Soft, nontender, no organomegaly. EXTREMITIES: No edema, cyanosis. SKIN: No gen rash NEUROLOGIC: Alert oriented x3 male in no acute distress moves all 4 extremities. RT IJ in place Labs Lab Laboratory Tests Test 11/14/21 16:47 11/14/21 20:38 11/15/21 06:20 11/15/21 07:56 Glucose (Fingerstick) 62 mg/dL (70-99) 137 mg/dL (70-99) 165 mg/dL (70-99) Sodium Level 137 mmol/L (136-145) Potassium Level 3.6 mmol/L (3.5-5.1) Chloride Level 99 mmol/L (98-107) Carbon Dioxide Level 31 mmol/L (21-32) Anion Gap 7 (6-14) Blood Urea Nitrogen 19 mg/dL (8-26) Creatinine 5.6 mg/dL (0.7-1.3) Estimated GFR (Cockcroft-Gault) 12.9 Glucose Level 112 mg/dL (70-99) Calcium Level 7.6 mg/dL (8.5-10.1) Micro Microbiology 11/10/21 Blood Culture - Preliminary, Resulted NO GROWTH AFTER 3 DAYS Objective Assessment 1. Fever.Could be from aspiration,BC negative so far resolved 2. Encephalopathy, Aphasia due to acute stroke. 3. Hypertensive crisis. 4. Diabetes. 5. End-stage renal disease, on hemodialysis. 6. Hypertensive urgency 7. Pancreatitis on KUB Plan Plan of Care Supportive care Okay to DC from ID standpoint JUDIE BANUELOS MD Nov 15, 2021 12:22
[2021-11-15] MEDS ORDERED: PANTOPRAZOLE 40 MG TABLET.DR. PO SCH (16:30)
== END 2021-11-15 15:44 | disposition home or self-care (01) | DRG 61 ==
LOC: ER 18:24 → 1 WEST ICU 19:57 → 6 SOUTH 11-11 18:30
PROVIDERS: ADMIT Internal Medicine; ATTEND Internal Medicine
PROC: 3E03317 Introduction of Other Thrombolytic into Peripheral Vein, Percutaneous Approach (ICD-10-PCS; 2021-11-09)
PROC: 02HV33Z Insertion of Infusion Device into Superior Vena Cava, Percutaneous Approach (ICD-10-PCS; principal; 2021-11-10)
PROC: B548ZZA Ultrasonography of Superior Vena Cava, Guidance (ICD-10-PCS; 2021-11-10)
PROC: 5A1D70Z Performance of Urinary Filtration, Intermittent, Less than 6 Hours Per Day (ICD-10-PCS; 2021-11-10)
PROC: 5A1D70Z Performance of Urinary Filtration, Intermittent, Less than 6 Hours Per Day (ICD-10-PCS; 2021-11-13)
PROC: 5A1D70Z Performance of Urinary Filtration, Intermittent, Less than 6 Hours Per Day (ICD-10-PCS; 2021-11-15)
DX: I63.9 Cerebral infarction, unspecified (principal); K85.90 Acute pancreatitis without necrosis or infection, unspecified; E11.10 Type 2 diabetes mellitus with ketoacidosis without coma; G93.41 Metabolic encephalopathy; N18.6 End stage renal disease; E87.1 Hypo-osmolality and hyponatremia; I13.2 Hypertensive heart and chronic kidney disease with heart failure and with stage 5 chronic kidney disease, or end stage renal disease; I50.32 Chronic diastolic (congestive) heart failure; J96.11 Chronic respiratory failure with hypoxia; K86.1 Other chronic pancreatitis; R47.01 Aphasia; D64.9 Anemia, unspecified; E11.22 Type 2 diabetes mellitus with diabetic chronic kidney disease; E11.40 Type 2 diabetes mellitus with diabetic neuropathy, unspecified; E11.649 Type 2 diabetes mellitus with hypoglycemia without coma; E78.2 Mixed hyperlipidemia; E83.42 Hypomagnesemia; E87.6 Hypokalemia; F17.210 Nicotine dependence, cigarettes, uncomplicated; F43.10 Post-traumatic stress disorder, unspecified; I16.0 Hypertensive urgency; I25.10 Atherosclerotic heart disease of native coronary artery without angina pectoris; I25.2 Old myocardial infarction; J44.9 Chronic obstructive pulmonary disease, unspecified; K21.9 Gastro-esophageal reflux disease without esophagitis; M19.90 Unspecified osteoarthritis, unspecified site; M48.02 Spinal stenosis, cervical region; M54.12 Radiculopathy, cervical region; F10.20 Alcohol dependence, uncomplicated; G47.30 Sleep apnea, unspecified; G89.29 Other chronic pain; K57.90 Diverticulosis of intestine, part unspecified, without perforation or abscess without bleeding; Z79.02 Long term (current) use of antithrombotics/antiplatelets; Z79.4 Long term (current) use of insulin; Z79.82 Long term (current) use of aspirin; Z82.49 Family history of ischemic heart disease and other diseases of the circulatory system; Z83.3 Family history of diabetes mellitus; Z86.16 Personal history of COVID-19; Z87.01 Personal history of pneumonia (recurrent); Z90.49 Acquired absence of other specified parts of digestive tract; Z92.3 Personal history of irradiation; Z95.5 Presence of coronary angioplasty implant and graft; Z99.2 Dependence on renal dialysis; Z99.81 Dependence on supplemental oxygen; Z88.5 Allergy status to narcotic agent; Z88.8 Allergy status to other drugs, medicaments and biological substances
CPT/HCPCS: 36415; 36556; 36600; 37195; 70450; 70496; 70498; 70551; 71045; 74018; 74230; 76937; 80048; 80053; 80061; 80069; 80202; 81001; 82010; 82805; 82962; 83036; 83735; 84100; 84484; 85025; 85610; 85730; 86706; 87040; 87340; 93005; 93306; 96374; 99292; C1892; C9113; J0360; J0692; J0780; J1644; J1815; J2405; J2997; J3010; J3370; J3475; J3480; J3490; J7030; J7040; J7042; J7050; Q9967; 92526-GN; 92610-GN; 92611-GN; 99291-25; C8929; G0378; Q4081

== ENCOUNTER 2021-12-08 06:58 | Emergency (ER) | payer BC ==
[~2021-12-08] VITALS: Ht 165.1 cm; Wt 59.0 kg
[~2021-12-08 06:58] MED LIST changes: +CLOP75TA PO
--- NOTE | 2021-12-08 08:05 | PHYS DOC ---
Past Medical History Past Medical History: Cancer, Diabetes-Type II, High Cholesterol, Hypertension, [place], Pancreatitis, Renal Failure, Other Additional Past Medical Histor: diaylsis Past Surgical History: Other Additional Past Surgical Histo: fistula left upper arm, BACK SURGURY JUN 2021 Smoking Status: Former Smoker Additional Information: QUIT IN MAR 2021 Alcohol Use: None Drug Use: None General Adult EDM: Chief Complaint: FATIGUE HPI: HPI: 56-year-old male, past medical history CVA 3 weeks ago, no residual deficits, diabetes, hypertension, ESRD on dialysis Saturday//Saturday, last dialyzed yesterday 12/07/2021, still makes urine, left upper extremity fistula, back surgery June 2021, presents with 1 day of generalized weakness and fa tigue this morning. Had unremarkable dialysis session yesterday. Reports that this does not feel like his stroke. Denies f/c/n/v/cp/sob. Denies any focal neuro deficit. Review of Systems: Review of Systems: Constitutional: +generalized weakness; Denies fever or chills. [] Eyes: Denies change in visual acuity. [] HENT: Denies nasal congestion or sore throat. [] Respiratory: Denies cough or shortness of breath. [] Cardiovascular: Denies chest pain or edema. [] GI: Denies abdominal pain, nausea, vomiting, bloody stools or diarrhea. [] : Denies dysuria. [] Musculoskeletal: Denies back pain or joint pain. [] Integument: Denies rash. [] Neurologic: Denies headache, focal weakness or sensory changes. [] Endocrine: Denies polyuria or polydipsia. [] Lymphatic: Denies swollen glands. [] Psychiatric: Denies depression or anxiety. [] Heart Score: C/O Chest Pain: No Risk Factors: Risk Factors: DM, Current or recent (<one month) smoker, HTN, HLP, family history of CAD, obesity. Risk Scores: Score 0 - 3: 2.5% MACE over next 6 weeks - Discharge Home Score 4 - 6: 20.3% MACE over next 6 weeks - Admit for Clinical Observation Score 7 - 10: 72.7% MACE over next 6 weeks - Early Invasive Strategies Allergies: Allergies: Allergies Coded Allergies Type Severity Reaction Last Updated Verified morphine Allergy Intermediate Itching 12/08/21 Yes lisinopril Adverse Reaction Intermediate Dry Cough 12/08/21 Yes Physical Exam: PE: Constitutional: Well developed, well nourished, no acute distress, non-toxic appearance. [] HENT: Normocephalic, atraumatic, bilateral external ears normal, oropharynx moist, no oral exudates, nose normal. [] Eyes: PERRLA, EOMI, conjunctiva normal, no discharge. [] Neck: Normal range of motion, no tenderness, supple, no stridor. [] Cardiovascular:Heart rate regular rhythm, no murmur [] Lungs & Thorax: Bilateral breath sounds clear to auscultation [] Abdomen: Bowel sounds normal, soft, no tenderness, no masses, no pulsatile masses. [] Skin: Warm, dry, no erythema, no rash. [] Back: No tenderness, no CVA tenderness. [] Extremities: LUE dialysis fistula; No tenderness, no cyanosis, no clubbing, ROM intact, no edema. [] Neurologic: Alert and oriented X 3, normal motor function, normal sensory function, no focal deficits noted. Normal gait. Psychologic: Affect normal, judgement normal, mood normal. [] Current Patient Data: Vital Signs: Vital Signs Date Time Temp Pulse Resp B/P (MAP) Pulse Ox O2 Delivery O2 Flow Rate FiO2 12/08/21 07:25 99.7 63 15 186/86 (119) 93 Room Air 99.7 EKG: EKG: [] Radiology/Procedures: Radiology/Procedures: [] Course & Med Decision Making: Course & Med Decision Making Pertinent Labs and Imaging studies reviewed. (See chart for details) Additional Social History: PMD from non-affiliated facility. Patient Lives at home. Family History: Non-pertinent to today's complaint. Nursing Notes Reviewed Previous Medical Records requested via [facility] Web: Reviewed by me. EMERGENT LABS AND DIAGNOSTIC STUDIES: Results were reviewed and interpreted by me as below 12-lead EKG Interpretation by Mushtaq Jo MD: Normal Sinus Rhythm at 60 beats per minute Normal axis Normal intervals No ectopy No PVC No other acute ST or T wave abnormalities Overall impression is normal EKG Chest X-ray was interpreted by Radiology, also reviewed by myself. PROCEDURE: PORTABLE CHEST 1V IMPRESSION: 1. No acute infiltrates. EMERGENCY DEPARTMENT COURSE/ MEDICAL DECISION MAKING: The patient was placed on a gas examiner, continuous pulse oximetry and was given supplemental oxygen. I examined the patient, evaluated and addressed patient's chief complaint. ESRD dialysis patient, last dialyzed yesterday, complaining of 1 day generalized weakness. Vitals wnl. No focal neuro deficit. r/o metabolic derangements and infectious etiology, r/o acs Labs unremarkable and at baseline. COVID neg. Patient has no acute complaints. Vitals wnl. Well appearing. Ambulating to bathroom and using toilet unassisted. Stable gait. No indication for emergent dialysis. Spoke to dialysis nurse at patient's dialysis center, agree plan for dialysis tomorrow Sat December 09, 2021. On re-assessment, patient feels much better. The patient understands that todays Emergency Department evaluation does not represent a comprehensive medical workup, and it is impossible to diagnose all possible illnesses from a single Emergency Department visit. The patient verbalized understanding that it is absolutely necessary to have follow-up with regular primary care physician within 1-2 days for more detailed workup and continued exam. I explained the findings and plan to the patient, who expressed verbal understanding and agreed with plan for discharge and follow up. The patient was given after care instructions and welcomed to return to the ED for re-evaluation in 8-12 hours, especially for any new or worsening symptoms. Patient's blood pressure was elevated (>120/80) but appears stable without evidence of end organ damage, malignant hypertension, hypertensive emergency or urgency. The patient was counseled about the risks of hypertension and urged to pursue outpatient monitoring and therapy within a week with their primary care physician. The patient was stable at the time of discharge. DIAGNOSTIC IMPRESSION: 1. weakness 2. ESRD on dialysis DISPOSITION: Disposition: Discharge Home. Condition: Improved Follow-Up: PMD, dialysis tomorrow Prescriptions: None Return to the Emergency Department for new or worsening symptoms. Dragon Disclaimer: Dragon Disclaimer: This electronic medical record was generated, in whole or in part, using a voice recognition dictation system. Departure Departure Impression: Primary Impression: ESRD (end stage renal disease) Additional Impression: Weakness Disposition: 01 HOME / SELF CARE / HOMELESS Condition: STABLE Referrals: TRINA ALDANA MD (PCP) MICKI JO MD December 08, 2021 08:05
[2021-12-08 08:24] LABS: BASO % 0 % (0-3); EOS # 0.1 x10^3/uL (0.0-0.7); EOS % 3 % (0-3); HEMOGLOBIN 10.7 g/dL (13.0-17.5); LYMPH # 0.6 x10^3/uL (1.0-4.8); LYMPH % 13 % (24-48); MEAN CORPUSCULAR HEMOGLOBIN 29 pg (25-35); MEAN CORPUSCULAR HGB CONC 35 g/dL (31-37); MEAN CORPUSCULAR VOLUME 85 fL (79-100); MONO # 0.3 x10^3/uL (0.0-1.1); MONO % 7 % (0-9); NEUT # 3.6 x10^3/uL (1.8-7.7); NEUT % 78 % (31-73); PLATELET COUNT 238 x10^3/uL (140-400); RED BLOOD COUNT 3.67 x10^6/uL (4.30-5.70); RED CELL DISTRIBUTION WIDTH 16.6 % (11.5-14.5); WHITE BLOOD COUNT 4.7 x10^3/uL (4.0-11.0)
[2021-12-08 08:34] LABS: PROTHROMBIN TIME PATIENT 15.7 SEC (11.7-14.0)
--- NOTE | 2021-12-08 08:38 | RAD ---
AP chest. HISTORY: Fatigue AP view was taken of the chest. Heart is normal in size. There is no pleural effusion. IMPRESSION: 1. No acute infiltrates. Electronically signed by: Sunny Phillips MD (12/08/2021 8:36 AM) [id number]
[2021-12-08 08:51] LABS: CALCIUM 7.6 mg/dL (8.5-10.1); CREATININE 4.7 mg/dL (0.7-1.3); GFR 15.7; POTASSIUM 3.4 mmol/L (3.5-5.1)
[2021-12-08 08:58] LABS: ALBUMIN 1.9 g/dL (3.4-5.0); ALBUMIN/GLOBULIN RATIO 0.6 (1.0-1.7); MAGNESIUM 1.7 mg/dL (1.8-2.4); TOTAL BILIRUBIN 0.2 mg/dL (0.2-1.0); TOTAL PROTEIN 5.3 g/dL (6.4-8.2)
[2021-12-08 11:32] VITALS: BP 195/86
--- NOTE | 2021-12-09 02:41 | EKG ---
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
== END 2021-12-08 11:55 | disposition home or self-care (01) ==
LOC: ER 06:58 → EDBD 06:58 → UNDOADMIN 11:38 → ED HOLD 11:38 → ER 11:55
DX: E11.22 Type 2 diabetes mellitus with diabetic chronic kidney disease (principal); I12.0 Hypertensive chronic kidney disease with stage 5 chronic kidney disease or end stage renal disease; N18.6 End stage renal disease; R53.1 Weakness; I25.2 Old myocardial infarction; Z20.822 Contact with and (suspected) exposure to COVID-19; Z99.2 Dependence on renal dialysis; Z86.73 Personal history of transient ischemic attack (TIA), and cerebral infarction without residual deficits; Z87.891 Personal history of nicotine dependence; Z88.5 Allergy status to narcotic agent; Z88.8 Allergy status to other drugs, medicaments and biological substances
CPT/HCPCS: 36415; 71045; 80053; 82962; 83735; 83880; 84484; 85025; 85610; 87426; 93005; 99285